=== PATIENT | female | born 1955 | race Caucasian/White ===

== ENCOUNTER 2016-10-22 09:50 | Emergency (ER) | payer BC, OTHER ==
[~2016-10-22] VITALS: Ht 172.7 cm; Wt 70.0 kg
[~2016-10-22 09:50] MED LIST: DFL100 PO; INSDGIPEN SC; INSU100I2 SQ; LEVO150T9 PO; MECL1TAB42 PO; ONDA4TAB10 SL; PRLSR20 PO; VTMD1000 PO
[2016-10-22 10:08] VITALS: Ht 172.7 cm; Wt 70.0 kg
[2016-10-22] MEDS ORDERED: ERGO500037 PO (10:18)
[2016-10-22] MEDS ORDERED: INSU100I SQ (10:23)
[2016-10-22] MEDS ORDERED: INSDGIPEN SC (10:23)
[2016-10-22] MEDS ORDERED: MECL-91 PO (10:27)
[2016-10-22] MEDS ORDERED: ACETAMINOPHEN 325 MG TAB PO STA (10:52)
[2016-10-22] MEDS ORDERED: ONDANSETRON INJ 2 MG/ML 2 ML VIAL IV STA (10:52)
[2016-10-22] MEDS ORDERED: SODIUM CHLORIDE 0.9% 1000ML 1,000 ML IV STA (10:52)
[2016-10-22] MEDS ORDERED: ALBUT/IPRATROP 3MG/0.5MG NEB 3 ML VIAL INH STA (10:52)
--- NOTE | 2016-10-22 11:06 | EMERGENCY ROOM VISIT NOTE ---
History Report prepared by Raisa: Tierney Le Under the Supervision of: Dr. Diann Hawley M.D. First contact with patient: 10:36 Chief Complaint: FLU LIKE SX Stated Complaint: FEVER, VOMITING, DIARRHEA, MUSCLE WEAKNESS History of Present Illness The patient is a 61 year old female who presents to the Emergency Room with complaints of worsening flu-like symptoms for the past several days. She complains of a fever, headache, chest congestion, cough, shortness of breath, vomiting, diarrhea, and body aches. She states that she has had some chest pain with coughing. She has been taking NyQuil with some relief of her symptoms. She received a flu shot this year. She states that her sister was recently tested positive for influenza. Denies rash or other complaints. Source of History: patient Onset: several days ago Position: other (global) Quality: other (flu-like symptoms) Timing: worsening Associated Symptoms: + SOB, + chest pain (with coughing), + cough, + diarrhea, + fevers, + headache, + vomiting, No rash Note: Other symptoms: chest congestion, body aches Review of Systems See HPI for pertinent positives & negatives. A total of 10 systems reviewed and were otherwise negative. Past Medical & Surgical Medical Problems: (1) Diabetes mellitus (2) DKA (diabetic ketoacidosis) (3) Hyperlipidemia Family History FHx: heart disease Social History Smoking Status: Never Smoker Alcohol Use: none Drug Use: none Marital Status: Housing Status: lives with significant other Occupation Status: employed Current/Historical Medications Scheduled Ergocalciferol (Vitamin D 14461 Unit), 50,000 UNIT PO WK Fluconazole (Fluconazole), 100 MG PO QAM Insulin Glargine (Lantus Solostar), 34 UNITS SC QAM Insulin Lispro (Human) (Humalog), 5-8 UNITS SQ TID Levothyroxine Sodium (Levothyroxine Sodium), 150 MCG PO DAILY Ondasetron Odt (Zofran Odt), 4 MG SL Q6H Oseltamivir (Tamiflu), 75 MG PO BID Scheduled PRN Albuterol Sulfate (Proventil Hfa), 2 PUFFS INH Q4 PRN for Cough Meclizine HCl (Meclizine 25), 1 TAB PO TID PRN for Dizziness or Vertigo Omeprazole (Prilosec), 20 MG PO BID PRN for GI Upset Allergies Coded Allergies: Penicillins (Verified Allergy, Mild, 10/22/16) Sulfa Antibiotics (Verified Allergy, Unknown, HIVES, 10/22/16) Physical Exam Vital Signs Date Time Temp Pulse Resp B/P Pulse Ox O2 Delivery O2 Flow Rate FiO2 10/22/16 13:44 83 18 119/64 95 10/22/16 13:09 89 10/22/16 12:06 37.8 89 20 126/70 10/22/16 11:16 91 10/22/16 10:08 37.3 101 20 123/73 96 Room Air Physical Exam Vital signs reviewed. General: Somewhat ill-appearing 61 year old female, in no significant distress. HEENT: No scleral icterus, PERRLA, posterior oropharynx is clear, neck supple. Atraumatic. Cardiovascular: Regular rate and rhythm, no extra sounds. Pulmonary: Mild scattered wheezes, normal work of breathing. Abdomen: Soft, nontender, nondistended, positive bowel sounds. Musculoskeletal: Atraumatic, no peripheral edema. Neurologic: Patient awake alert and oriented x 3, full strength in all 4 extremities. Cranial nerves 2 through 12 grossly intact. No meningeal signs. Skin: Warm, dry, no rash Medical Decision & Procedures ER Provider Diagnostic Interpretation: Radiology results as stated below per my review and radiologist interpretation: CHEST ONE VIEW PORTABLE CLINICAL HISTORY: COUGH, FEVER COMPARISON STUDY: No previous studies for comparison. FINDINGS: The cardiac and mediastinal contours are normal. There is no evidence of focal pulmonary consolidation. There is no evidence of failure. No pleural effusions are visualized.[ There is a calcified left upper lung zone granuloma. IMPRESSION: No active disease in the chest. Electronically signed by: Solitario Colon M.D. 10/22/2016 11:07 AM Dictated Date/Time: 10/22/2016 11:06 AM Laboratory Results 10/22/16 10:30 Red Blood Count 4.52, Mean Corpuscular Volume 83.2, Mean Corpuscular Hemoglobin 29.2, Mean Corpuscular Hemoglobin Concent 35.1, Mean Platelet Volume 10.4, Neutrophils (%) (Auto) 79.4, Lymphocytes (%) (Auto) 16.1, Monocytes (%) (Auto) 4.3, Eosinophils (%) (Auto) 0.0, Basophils (%) (Auto) 0.1, Neutrophils # (Auto) 6.05, Lymphocytes # (Auto) 1.23, Monocytes # (Auto) 0.33, Eosinophils # (Auto) 0.00, Basophils # (Auto) 0.01 10/22/16 10:30 Test 10/22/16 10:25 10/22/16 10:30 10/22/16 10:36 Bedside Glucose 347 mg/dl (70-90) White Blood Count 7.63 K/uL (4.8-10.8) Red Blood Count 4.52 M/uL (4.2-5.4) Hemoglobin 13.2 g/dL (12.0-16.0) Hematocrit 37.6 % (37-47) Mean Corpuscular Volume 83.2 fL (80-100) Mean Corpuscular Hemoglobin 29.2 pg (25-34) Mean Corpuscular Hemoglobin Concent 35.1 g/dl (32-36) Platelet Count 161 K/uL (130-400) Mean Platelet Volume 10.4 fL (7.4-10.4) Neutrophils (%) (Auto) 79.4 % Lymphocytes (%) (Auto) 16.1 % Monocytes (%) (Auto) 4.3 % Eosinophils (%) (Auto) 0.0 % Basophils (%) (Auto) 0.1 % Neutrophils # (Auto) 6.05 K/uL (1.4-6.5) Lymphocytes # (Auto) 1.23 K/uL (1.2-3.4) Monocytes # (Auto) 0.33 K/uL (0.11-0.59) Eosinophils # (Auto) 0.00 K/uL (0-0.5) Basophils # (Auto) 0.01 K/uL (0-0.2) RDW Standard Deviation 41.6 fL (36.4-46.3) RDW Coefficient of Variation 13.6 % (11.5-14.5) Immature Granulocyte % (Auto) 0.1 % Immature Granulocyte # (Auto) 0.01 K/uL (0.00-0.02) Anion Gap 10.0 mmol/L (3-11) Est Creatinine Clear Calc Drug Dose 75.4 ml/min Estimated GFR () 92.1 Estimated GFR (Non- 79.5 BUN/Creatinine Ratio 8.9 (10-20) Calcium Level 8.9 mg/dl (8.5-10.1) Magnesium Level 2.1 mg/dl (1.8-2.4) Total Bilirubin 0.4 mg/dl (0.2-1) Direct Bilirubin < 0.1 mg/dl (0-0.2) Aspartate Amino Transf (AST/SGOT) 18 U/L (15-37) Alanine Aminotransferase (ALT/SGPT) 28 U/L (12-78) Alkaline Phosphatase 126 U/L (45-117) Total Protein 7.3 gm/dl (6.4-8.2) Albumin 3.6 gm/dl (3.4-5.0) Lipase 103 U/L (73-393) Beta-Hydroxybutyric Acid 6.10 mg/dL (0.2-2.81) Influenza Type A (RT-PCR) POS for Influ A (NEG) Influenza Type A Antigen Neg for Influ A (NEG) Influenza Type B Antigen Neg for Influ B (NEG) Influenza Type B (RT-PCR) Neg for Influ B (NEG) Laboratory results per my review. Medications Administered Medications (Trade) Dose Ordered Sig/Mohamud Route Start Time Stop Time Status Last Admin Dose Admin Albuterol/ Ipratropium (Duoneb) 3 ml NOW STAT INH 10/22/16 10:52 10/22/16 10:55 DC 10/22/16 11:21 3 ML Acetaminophen 650 mg 650 mg NOW STAT PO 10/22/16 10:52 10/22/16 10:55 DC 10/22/16 11:19 650 MG Sodium Chloride (Nss 1000ml) 1,000 ml @ 999 mls/hr Q1H1M STAT IV 10/22/16 10:52 10/22/16 11:52 DC 10/22/16 11:19 999 MLS/HR Ondansetron HCl (Zofran Inj) 4 mg NOW STAT IV 10/22/16 10:52 10/22/16 10:55 DC 10/22/16 11:20 4 MG ECG Indication: chest pain Rate (beats per minute): 86 Rhythm: normal sinus Findings: no acute ischemic change, no ectopy Comparison ECG Date: 06/30/16 Change: T waves are flat laterally compared to previous. ED Course 1052: The patient was evaluated in room C9. A complete history and physical examination was performed. Ordered Zofran Inj 4 mg IV, NSS 1000 ml @ 999 mls/hr IV, Tylenol Tab 650 mg PO, DuoNeb 3 ml INH. 1330: Upon reevaluation, the patient appeared to have improvement of her symptoms. I discussed findings with the patient. She verbalized agreement of the treatment plan. The patient was discharged home. Medical Decision Fever: Influenza, other viral illness, pneumonia, urinary tract infection, metabolic abnormality, medication effect, cellulitis, meningitis, intra-abdominal source. His patient was evaluated and appeared to be in no significant distress. Physical examination reveals faint scattered wheezes. The patient is not febrile however she did take Tylenol earlier today. Laboratory work reveals a hyperglycemia with a blood sugar of 300 and positive influenza A swab. Chest x- ray is clear. The patient tolerated IV hydration Tylenol and Zofran. Her symptoms seemed to improve. She was advised to avoid her to is sick with cancer and is hospitalized until her fever has resolved. Patient was placed on Tamiflu 75 mg twice a day for 5 days. She was given an albuterol inhaler. She will follow-up with her physician this week for reevaluation and return to the ER for worsening of symptoms or any medical concerns. Impression Primary Impression: Influenza A Scribe Attestation The scribe's documentation has been prepared under my direction and personally reviewed by me in its entirety. I confirm that the note above accurately reflects all work, treatment, procedures, and medical decision making performed by me. Departure Information Dispostion Home / Self-Care Prescriptions Oseltamivir (Tamiflu) 75 Mg Cap 75 MG PO BID, #10 CAP Prov: Diann Hawley M.D. 10/22/16 Albuterol Sulfate (Proventil Hfa) 108 Mcg/Act Aer 2 PUFFS INH Q4 Y for Cough, #1 INHALER Prov: Diann Hawley M.D. 10/22/16 Referrals Hu Cruz M.D. (PCP) Patient Instructions My [facility], Oseltamivir Phosphate Oral capsule Additional Instructions Diagnosis: Influenza A Tamiflu 75 mg twice daily for 5 days. Tylenol 650 mg every 6 hours as needed for pain or fever. Ibuprofen 600 mg every 6 hours as needed for pain or fever. Drink plenty of clear fluids. Albuterol 2 puffs every 4 hours as needed for wheezing or cough. Return to the ER for worsening of symptoms or any medical concerns
[2016-10-22 11:10] LABS: HEMATOCRIT 37.6 % (37-47); MEAN CELL VOLUME 83.2 fL (80-100); MEAN CORPUSCULAR HEMOGLOBIN 29.2 pg (25-34); MEAN CORPUSCULAR HGB CONC 35.1 g/dl (32-36); MEAN PLATELET VOLUME 10.4 fL (7.4-10.4); PLATELET COUNT 161 K/uL (130-400); RED BLOOD COUNT 4.52 M/uL (4.2-5.4); WHITE BLOOD COUNT 7.63 K/uL (4.8-10.8)
[2016-10-22 11:20] LABS: ALT/SGPT 28 U/L (12-78); AST/SGOT 18 U/L (15-37); BLOOD UREA NITROGEN 7 mg/dl (7-18); BUN/CREATININE RATIO 8.9 (10-20); CALCIUM 8.9 mg/dl (8.5-10.1); CARBON DIOXIDE 24 mmol/L (21-32); CHLORIDE 101 mmol/L (98-107); CREATININE 0.81 mg/dl (0.60-1.20); GLUCOSE 304 mg/dl (70-99); MAGNESIUM 2.1 mg/dl (1.8-2.4); POTASSIUM 3.6 mmol/L (3.5-5.1); SODIUM 135 mmol/L (136-145)
[2016-10-22 11:24] LABS: ALKALINE PHOSPHATASE 126 U/L (45-117)
[2016-10-22 11:40] LABS: BASO % 0.1 %; BASO ABS # 0.01 K/uL (0-0.2); COMPLETE YES; IG% 0.1 %; LYMPH % 16.1 %; LYMPH ABS # 1.23 K/uL (1.2-3.4); MONO % 4.3 %; NEUT % 79.4 %
[2016-10-22 12:06] VITALS: TEMP 37.8
[2016-10-22 12:23] LABS: INFLUENZA B PCR Neg for Influ B (NEG)
[2016-10-22 13:12] LABS: INFLUENZA A PCR POS for Influ A (NEG)
[2016-10-22] MEDS ORDERED: ALBUAER INH (13:22)
[2016-10-22] MEDS ORDERED: OSEL75CA12 PO (13:23)
[2016-10-22 13:44] VITALS: BP 119/64; PULSE 83; O2SAT 95
== END 2016-10-22 13:45 | disposition home or self-care (01) ==
LOC: C.EDB 09:51 → C.EDC 13:45
DX: J11.1 Influenza due to unidentified influenza virus with other respiratory manifestations (principal); E11.9 Type 2 diabetes mellitus without complications; E78.5 Hyperlipidemia, unspecified

== ENCOUNTER → 2016-11-10 | Outpatient (CLI) | payer BC ==
[~2016-11-10] MED LIST changes: +ALBUAER INH; +ERGO500037 PO; +INSU100I SQ; -INSU100I2 SQ; +MECL-91 PO; -MECL1TAB42 PO; +OSEL75CA12 PO; -VTMD1000 PO
[2016-11-10 12:09] LABS: ESTIMATED AVERAGE GLUCOSE 301 mg/dl; HA1C FLAG Normal (Normal)
[2016-11-10 13:04] LABS: ALT/SGPT 27 U/L (12-78); AST/SGOT 17 U/L (15-37); BLOOD UREA NITROGEN 10 mg/dl (7-18); BUN/CREATININE RATIO 11.9 (10-20); CARBON DIOXIDE 28 mmol/L (21-32); CHLORIDE 100 mmol/L (98-107); CREATININE 0.88 mg/dl (0.60-1.20); GLUCOSE 290 mg/dl (70-99); SODIUM 136 mmol/L (136-145)
[2016-11-10 13:09] LABS: ALB/GLOB RATIO 1.1 (0.9-2); ALKALINE PHOSPHATASE 108 U/L (45-117); CHOLESTEROL 251 mg/dl (0-200); CHOLESTEROL/HDL RATIO 5.6; HDL CHOLESTEROL 45 mg/dl; LDL CHOLESTEROL CALCULATED 161 mg/dl; TRIGLYCERIDES 224 mg/dl (0-150); VERY LOW DENSITY LIPOPROT CALC 45 mg/dl
[2016-11-10 13:11] LABS: CALCIUM 9.2 mg/dl (8.5-10.1)
[2016-11-10 14:01] LABS: RATIO 14.7 mcg/mg (0-30.0)
== END | disposition home or self-care (01) ==
LOC: C.LAB1850 11:03
PROVIDERS: ATTEND Nurse Practitioner Family
DX: E55.9 Vitamin D deficiency, unspecified (principal); E10.9 Type 1 diabetes mellitus without complications; E03.9 Hypothyroidism, unspecified

== ENCOUNTER → 2017-01-02 | Outpatient (CLI) | payer OTHER ==
[~2017-01-02] MED LIST changes: -ONDA4TAB10 SL
--- NOTE | 2017-01-02 11:41 | DIAGNOSTIC IMAGING REPORT ---
PELVIS 1 OR 2 VIEW ROUTINE CLINICAL HISTORY: M54.4 pain COMPARISON: None. DISCUSSION: Moderate rather significant degenerative change of both hips. No evidence for acetabular protrusion. Mild degenerative change of the sacroiliac joints. Nonobstructive bowel pattern. There is no evidence for soft tissue swelling. IMPRESSION: Moderate to significant degenerative change of the hips bilaterally and to lesser extent sacroiliac joints. Electronically signed by: Devon Cedillo M.D. 01/02/2017 11:40 AM Dictated Date/Time: 01/02/2017 11:39 AM
--- NOTE | 2017-01-02 11:43 | DIAGNOSTIC IMAGING REPORT ---
LUMBAR SPINE 5 VIEWS HISTORY: Pain M54.4 COMPARISON: None. FINDINGS: Mild scoliosis. No subluxation. Moderate degenerative change primarily at L5-S1. No evidence for compression deformity. Posterior elements are intact. Mild sclerosis of the posterior facets. IMPRESSION: Mild scoliosis. Moderate degenerative intervertebral disc change most significant at L5-S1. Electronically signed by: Devon Cedillo M.D. 01/02/2017 11:41 AM Dictated Date/Time: 01/02/2017 11:40 AM
== END | disposition home or self-care (01) ==
LOC: C.RAD 11:10
PROVIDERS: ATTEND Nurse Practitioner
DX: M47.817 Spondylosis without myelopathy or radiculopathy, lumbosacral region (principal); M41.9 Scoliosis, unspecified

== ENCOUNTER → 2017-02-10 | Outpatient (CLI) | payer OTHER | END | disposition home or self-care (01) | LOC: C.MAMM 13:26 | PROVIDERS: ATTEND Nurse Practitioner | DX: M85.89 Other specified disorders of bone density and structure, multiple sites (principal) ==

== ENCOUNTER → 2017-02-10 | Outpatient (CLI) | payer OTHER ==
[2017-02-11 06:22] LABS: ESTIMATED AVERAGE GLUCOSE 335 mg/dl; HA1C FLAG Normal (Normal)
== END | disposition home or self-care (01) ==
LOC: C.LAB1850 14:00
PROVIDERS: ATTEND Nurse Practitioner Family
DX: E03.9 Hypothyroidism, unspecified (principal); E10.9 Type 1 diabetes mellitus without complications

== ENCOUNTER → 2017-02-27 | Outpatient (CLI) | payer OTHER ==
[2017-02-27 12:16] LABS: HEMATOCRIT 37.8 % (37-47); MEAN CELL VOLUME 85.1 fL (80-100); MEAN CORPUSCULAR HEMOGLOBIN 28.6 pg (25-34); MEAN CORPUSCULAR HGB CONC 33.6 g/dl (32-36); PLATELET COUNT 234 K/uL (130-400); RED BLOOD COUNT 4.44 M/uL (4.2-5.4)
== END | disposition home or self-care (01) ==
LOC: C.LAB1850 10:56
PROVIDERS: ATTEND Physician Assistant
DX: J45.991 Cough variant asthma (principal)

== ENCOUNTER → 2017-02-27 | Outpatient (CLI) | payer OTHER ==
--- NOTE | 2017-02-27 10:52 | DIAGNOSTIC IMAGING REPORT ---
CHEST 2 VIEWS ROUTINE HISTORY:60 [id number] - COUGH COMPARISON: Chest radiograph 10/22/2016. TECHNIQUE: Frontal and lateral views of the chest. FINDINGS: Cardiomediastinal and hilar silhouettes are within normal limits. No pneumothorax, pleural effusion or focal airspace consolidation. Calcific granuloma left midlung is unchanged. Cholecystectomy clips are noted. There is gentle convex right curvature of the midthoracic spine. IMPRESSION: Prior granulomatous disease without acute cardiopulmonary process. The above report was generated using voice recognition software. It may contain grammatical, syntax or spelling errors. Electronically signed by: Haris Capellan 02/27/2017 10:50 AM Dictated Date/Time: 02/27/2017 10:49 AM
== END | disposition home or self-care (01) ==
LOC: C.RAD 10:21
DX: J45.991 Cough variant asthma (principal)

== ENCOUNTER → 2017-05-21 | Outpatient (CLI) | payer OTHER ==
[~2017-05-21] MED LIST changes: -OSEL75CA12 PO
[2017-05-21 12:21] LABS: ESTIMATED AVERAGE GLUCOSE 286 mg/dl; HA1C FLAG Normal (Normal)
[2017-05-21 12:45] LABS: CHOLESTEROL 192 mg/dl (0-200); CHOLESTEROL/HDL RATIO 4.2; HDL CHOLESTEROL 46 mg/dl; LDL CHOLESTEROL CALCULATED 121 mg/dl; THYROID STIMULATING HORMONE < 0.005 uIu/ml (0.300-4.500); TRIGLYCERIDES 125 mg/dl (0-150); VERY LOW DENSITY LIPOPROT CALC 25 mg/dl
== END | disposition home or self-care (01) ==
LOC: C.LAB1850 10:37
PROVIDERS: ATTEND Nurse Practitioner Family
DX: E78.5 Hyperlipidemia, unspecified (principal); I10 Essential (primary) hypertension; E10.65 Type 1 diabetes mellitus with hyperglycemia

== ENCOUNTER → 2017-06-10 | Outpatient (CLI) | payer OTHER ==
[~2017-06-10] MED LIST changes: +OPTIRAY 320 IV PRN
[2017-06-10 10:56] LABS: BLOOD UREA NITROGEN 20 mg/dl (7-18)
--- NOTE | 2017-06-10 12:54 | DIAGNOSTIC IMAGING REPORT ---
CT OF THE ABDOMEN AND PELVIS WITH CONTRAST CLINICAL HISTORY: PELVIC AND PERINEAL PAIN. COMPARISON STUDY: CT of the abdomen and pelvis June 17, 2008 and pelvis radiograph January 02, 2017. TECHNIQUE: Following IV administration of 95 mL of Optiray-320, axial images of the abdomen and pelvis were obtained from the lung bases to the proximal femurs. Images were reviewed in the axial, sagittal, and coronal planes. IV contrast was administered without complication. A dose lowering technique was utilized adhering to the principles of ALARA. Oral contrast was administered. CT DOSE: 435.73 mGycm FINDINGS: Several subcentimeter hypodense hepatic lesions are too small to characterize but were present on exam of June 17, 2008 and are therefore benign. Mild dilatation of the common bile duct is unchanged since prior exam and likely related to cholecystectomy. There is no pancreatic ductal dilatation or peripancreatic infiltration. There are diverticula of the second portion of the duodenum. There are calcified granulomas within the spleen. There is no hydronephrosis. The adrenal glands and kidneys are normal. No abdominal or pelvic lymphadenopathy is present. The appendix is not visualized. There is sigmoid diverticulosis without evidence for acute diverticulitis. No suspicious osseous lesions present. There is moderate to severe arthritis of both hips. No fluid collection is identified to suggest an abscess. There are no enlarged lymph nodes. No perianal/perirectal abscess is identified. IMPRESSION: 1. No acute process within the abdomen or pelvis. 2. Sigmoid diverticulosis without evidence for acute diverticulitis. 3. 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 Electronically signed by: Wes Ramirez M.D. 06/10/2017 12:53 PM Dictated Date/Time: 06/10/2017 12:44 PM
== END | disposition home or self-care (01) ==
LOC: C.CTS 09:39
PROVIDERS: ATTEND Physician Assistant
DX: R10.2 Pelvic and perineal pain (principal); Z12.72 Encounter for screening for malignant neoplasm of vagina; Z51.81 Encounter for therapeutic drug level monitoring; Z79.899 Other long term (current) drug therapy; K57.30 Diverticulosis of large intestine without perforation or abscess without bleeding

== ENCOUNTER → 2017-07-28 | Outpatient (CLI) | payer OTHER ==
[~2017-07-28] MED LIST changes: -OPTIRAY 320 IV PRN
--- NOTE | 2017-07-29 07:36 | MAMMOGRAPHY REPORT ---
BILATERAL DIGITAL SCREENING MAMMOGRAM TOMOSYNTHESIS WITH CAD: 07/28/2017 CLINICAL HISTORY: Routine screening. Patient has no complaints. TECHNIQUE: Breast tomosynthesis in addition to standard 2D mammography was performed. Current study was also evaluated with a Computer Aided Detection (CAD) system. COMPARISON: Comparison is made to exams dated: 07/23/2012 ultrasound, 07/23/2012 mammogram, 2 ultrasound, 01/15/2012 mammogram, 01/13/2012 mammogram, and [facility] BREAST COMPOSITION: The tissue of both breasts is heterogeneously dense, which may obscure small mas ses. FINDINGS: There are benign rim calcifications in both breasts. No suspicious mass, architectural dis tortion or cluster of new, suspicious microcalcifications is seen. IMPRESSION: ACR BI-RADS CATEGORY 2: BENIGN There is no mammographic evidence of malignancy. A 1 year screening mammogram is recommended. The pa tient will receive written notification of the results. Approximately 10% of breast cancers are not detected with mammography. A negative mammographic report should not delay biopsy if a clinically suggestive mass is present. Gayatri Singleton M.D. ay/:07/28/2017 16:38:51 Surgical Resident: Lourdes WEBSTER(R)(M), [facility] letter sent: Normal 1/2 BI-RADS Code: ACR BI-RADS Category 2: Benign
== END | disposition home or self-care (01) ==
LOC: C.MAMM 11:23
PROVIDERS: ATTEND Physician Assistant
DX: Z12.31 Encounter for screening mammogram for malignant neoplasm of breast (principal)

== ENCOUNTER → 2017-12-09 | Outpatient (CLI) | payer OTHER ==
[2017-12-09 09:51] LABS: HEMOGLOBIN A1C 9.5 % (4.5-5.6)
[2017-12-09 09:53] LABS: CREATININE RANDOM URINE 46.7 mg/dl
== END | disposition home or self-care (01) ==
LOC: C.LAB 07:20
PROVIDERS: ATTEND Internal Medicine Endocrinology, Diabetes & Metabolism
DX: E03.9 Hypothyroidism, unspecified (principal); E10.9 Type 1 diabetes mellitus without complications; E55.9 Vitamin D deficiency, unspecified

== ENCOUNTER → 2017-12-09 | Day surgery (SDC) | payer OTHER ==
[~2017-12-09] VITALS: Ht 162.6 cm; Wt 68.0 kg
[~2017-12-09] MED LIST changes: +COSYNTROPIN INJ 1 MCG in SYRINGE 0 ML IV SCH
[2017-12-09 08:07] VITALS: BP 138/77; PULSE 77; TEMP 36.8; O2SAT 99; Ht 162.6 cm; Wt 68.0 kg
[2017-12-09 09:02] VITALS: BP 125/76; PULSE 73; TEMP 36.9; O2SAT 98
[2017-12-09 09:30] VITALS: BP 136/70; PULSE 71; TEMP 37.1; O2SAT 98
--- NOTE | 2017-12-16 10:24 | CODING QUERY NO DIAGNOSIS ---
CODING QUERY Dr. Whitlock DOS: 12-09-17 To promote full compliance with coding requirements relating to patient care, provider participation is requested in all cases of audiology technician uncertainty. Please assist us with the question(s) below: Coding Question(s): The patient was seen in [facility] on 12-09-17 and had a low dose cortrosyn test. Please provide a diagnosis. Thank you. Physician's Response(s): Thank you Kristen Berman - Computer Video Game Designer Principal Diagnosis: "_that condition established after study, to be chiefly responsible for occasioning the admission of the patient to the hospital for care." Co-Existing Principal Diagnosis: "_when two or more diagnoses equally meet the criteria for principal diagnosis as determined by the circumstances of admission, diagnostic work up, and/or therapy provided, and the Alphabetic Index, Tabular List, or another coding guideline does not provide sequencing direction, any one of the diagnoses may be sequenced first." "When the physician has documented what appears to be a current diagnosis in the body of the record, but has not included the diagnosis in the final diagnostic statement, the physician should be asked whether the diagnosis should be added." (Source Coding Clinic 2 QTR90. p3-4)
== END | disposition home or self-care (01) ==
LOC: C.MTU 07:44
PROVIDERS: ATTEND Internal Medicine Endocrinology, Diabetes & Metabolism
DX: E06.3 Autoimmune thyroiditis (principal); E03.9 Hypothyroidism, unspecified

== ENCOUNTER → 2018-03-12 | Outpatient (CLI) | payer OTHER ==
[~2018-03-12] MED LIST changes: -ALBUAER INH; -COSYNTROPIN INJ 1 MCG in SYRINGE 0 ML IV SCH
--- NOTE | 2018-03-12 12:51 | DIAGNOSTIC IMAGING REPORT ---
THYROID ULTRASOUND CLINICAL HISTORY: Thyroid nodule. Hypothyroidism. COMPARISON STUDY: None. TECHNIQUE: Sonography of the thyroid gland was performed. FINDINGS: The right thyroid lobe measures 3 x 1.3 x 0.9 cm and the left lobe measures 3.3 x 0.8 x 0.8 cm. The gland is small and markedly heterogeneous. No thyroid nodules are identified. IMPRESSION: 1. Heterogeneous, small thyroid gland. 2. No thyroid nodules identified. Electronically signed by: Wes Ramirez M.D. 03/12/2018 12:49 PM Dictated Date/Time: 03/12/2018 12:48 PM
== END | disposition home or self-care (01) ==
LOC: C.ULTR 12:16
PROVIDERS: ATTEND Physician Assistant
DX: E03.9 Hypothyroidism, unspecified (principal)

== ENCOUNTER → 2018-04-02 | Outpatient (CLI) | payer OTHER ==
[2018-04-02 12:38] LABS: BLOOD UREA NITROGEN 14 mg/dl (7-18); CALCIUM 8.8 mg/dl (8.5-10.1); CARBON DIOXIDE 28 mmol/L (21-32); CREATININE 0.84 mg/dl (0.60-1.20); GLUCOSE 98 mg/dl (70-99); POTASSIUM 3.8 mmol/L (3.5-5.1); SODIUM 138 mmol/L (136-145)
[2018-04-02 12:51] LABS: HEMOGLOBIN A1C 9.2 % (4.5-5.6)
[2018-04-02 12:55] LABS: CREATININE RANDOM URINE 70.9 mg/dl
== END | disposition home or self-care (01) ==
LOC: C.LAB1850 09:54
PROVIDERS: ATTEND Nurse Practitioner Family
DX: E10.65 Type 1 diabetes mellitus with hyperglycemia (principal)

== ENCOUNTER 2019-06-27 17:17 | Inpatient (IN) ==
[2019-06-27] MEDS ORDERED: MoRPHine SULFATE 4 MG/ML 1 ML CARP\\VIAL IV STA (17:41)
[2019-06-27] MEDS ORDERED: ONDANSETRON INJ 2 MG/ML 2 ML VIAL IV STA ×2 (17:41→21:17)
[2019-06-27 18:02] LABS: Basophils # (auto) 0.01 K/uL (0-0.2); Basophils % (auto) 0.1 %; Hemoglobin 11.6 g/dL (12.0-16.0); Immature Granulocytes # (auto) 0.01 K/uL (0.00-0.02); Immature Granulocytes % (auto) 0.1 %; Lymphocytes # (auto) 0.62 K/uL (1.2-3.4); Lymphocytes % (auto) 7.5 %; Mean Corpuscular Hemoglobin 29.7 pg (25-34); Mean Corpuscular Hgb Conc 34.1 g/dL (32-36); Mean Platelet Volume 10.9 fL (7.4-10.4); Monocytes # (auto) 0.16 K/uL (0.11-0.59); Monocytes % (auto) 1.9 %; Neutrophils # (auto) 7.48 K/uL (1.4-6.5); Neutrophils % (auto) 90.4 %; Platelet Count 143 K/uL (130-400); RDW Coefficient of Variation 13.1 % (11.5-14.5); Red Blood Count 3.91 M/uL (4.2-5.4); White Blood Count 8.28 K/uL (4.8-10.8)
[2019-06-27 18:13] LABS: Alanine Aminotransferase 112 U/L (12-78); Albumin Level 3.8 gm/dl (3.4-5.0); Aspartate Aminotransferase 227 U/L (15-37); BUN Creatinine Ratio 30.8 (10-20); Blood Urea Nitrogen 21 mg/dl (7-18); Calcium 9.2 mg/dl (8.5-10.1); Carbon Dioxide 25 mmol/L (21-32); Chloride 107 mmol/L (98-107); Creatinine Clr Calc Pharmacy 81.2 ml/min; Est GFR (African American) 108.1; Est GFR (Non-African American) 93.3; Glucose 104 mg/dl (70-99); Lipase 69 U/L (73-393); Potassium 3.1 mmol/L (3.5-5.1); Sodium 140 mmol/L (136-145)
[2019-06-27 18:18] LABS: Albumin Globulin Ratio 1.4 (0.9-2); Alkaline Phosphatase 93 U/L (45-117); Bilirubin,Total 0.5 mg/dl (0.2-1); Globulin 2.8 gm/dl (2.5-4.0); Total Protein 6.6 gm/dl (6.4-8.2); Troponin I < 0.015 ng/ml (0-0.045)
[2019-06-27] MEDS ORDERED: IOVERSOL 100ml IV PRN (19:24)
--- NOTE | 2019-06-27 19:40 | CT Scan Report ---
CT abd pelvis IV con only CT DOSE: 304.24 mGy.cm HISTORY: upper abd pain/transaminitis eval for mass TECHNIQUE: Multiaxial CT images of the abdomen and pelvis were performed following the use of intrave nous contrast. A dose lowering technique was utilized adhering to the principles of ALARA. COMPARISON STUDY: 06/10/2017 FINDINGS: Lung bases are clear. Prior cholecystectomy. Liver spleen and pancreas are otherwise unrema rkable. Mild increase in biliary ductal prominence compared to the prior study. Mild prominence of several lo ops of small bowel suggesting nonspecific enteritis. Bowel pattern overall is nonobstructive. Bladder is midline. Moderate degenerative changes of the bony structures are noted. IMPRESSION: 1. Moderate nonspecific small bowel enteritis. 2. Slight increase in biliary ductal prominence compared to the prior study. The above report was generated using voice recognition software. It pain may contain grammatical, sy ntax or spelling errors. Electronically signed by: Devon Cedillo M.D. 06/27/2019 7:39 PM
[2019-06-27 19:56] LABS: Appearance Urine Cloudy (Clear); Bacteria Urine Automated Negative (Negative); Bilirubin Urine Negative (Negative); Blood Urine Negative (Negative); Color Urine Dark Yellow; Epithelial Cell Urine Auto >30 /lpf (0-5); Glucose Urine UA 2+ (Negative); Ketones Urine Negative (Negative); Leukocyte Esterase Urine Negative (Negative); Nitrite Urine Negative (Negative); RBC Urine Automated 0-4 /hpf (0-4); Specific Gravity Urine 1.037 (1.000-1.030); Urobilinogen Urine Positive (Negative); pH Urine 8.5 (4.5-7.5)
[2019-06-27 20:09] LABS: Protein Urine Negative (Negative); Sulfosalicylic Acid Urine Negative (Negative)
--- NOTE | 2019-06-27 21:00 | Ultrasound Report ---
US liver CLINICAL HISTORY: epigastric pain eval for biliary obstruction COMPARISON STUDY: 02/09/2019 FINDINGS: Pancreas is unremarkable. Liver is uniform and 15 cm maximum dimension. Normal vascular courtney w is present. Gallbladder surgically absent. Common bile duct measures to 1.5 cm. Right kidney is negative for hydronephrosis. IMPRESSION: Moderately distended common bile duct 1.5 cm. This is increased from the 9 mm dimension described previously. Study is otherwise negative post cholecystectomy. The above report was generated using voice recognition software. It may contain grammatical, syntax or spelling errors. Electronically signed by: Devon Cedillo M.D. 06/27/2019 8:59 PM
[2019-06-27] MEDS ORDERED: fentaNYL citrate 100 MCG/2 ML VIAL IV STA (21:17)
[2019-06-27] MEDS ORDERED: MoRPHine SULFATE 2 MG/ML CARP IV PRN (22:06)
[2019-06-27] MEDS ORDERED: ALBUTEROL 0.083% NEBU SOLN 3 ML VIAL NEB PRN (22:06)
[2019-06-27] MEDS ORDERED: KETOROLAC TROMETHAMINE 15 MG/ML VIAL IV PRN (22:06)
[2019-06-27] MEDS ORDERED: GLUCAGON FOR INJ 1 MG VIAL SQ PRN (22:44)
[2019-06-27] MEDS ORDERED: DEXTROSE 50% 50 ML SYRINGE IV PRN (22:44)
[2019-06-27] MEDS ORDERED: LORazepam 0.5 MG TAB PO PRN (22:44)
[2019-06-27] MEDS ORDERED: INSULIN ASPART PER UNIT SQ SCH (22:44)
[2019-06-27] MEDS ORDERED: GLUCOSE 40% GEL 15 GM TUBE PO PRN (22:44)
[2019-06-27] MEDS ORDERED: CARBOHYDRATES FOR HYPOGLYCEMIA PO PRN (22:44)
[2019-06-27] MEDS ORDERED: GLUCOSE 10 TABS/TUBE PO PRN (22:44)
--- NOTE | 2019-06-27 22:53 | History & Physical Report ---
Date of Service June 27, 2019 Assessment & Plan (1) Abdominal pain: NPO except meds Pain control (2) Abnormal LFTs: Patient has history of bile duct obstruction following cholecystectomy. May need ERCP I deferred MRCP as she has an insulin pump Consult GI - she had seen Elif WILLIAM roughly 16 years prior. DVT prophylaxis = SCDs, holding pharmacologic due to possibility of procedure. Follow labs. (3) Bilious emesis: Prn Zofran. (4) Acute hypokalemia: IVF with potassium re check in the am. (5) Diabetes mellitus: Patient has insulin pump. (6) Hyperlipidemia: Continue rosuvastatin. History of Present Illness 64 y/o female presented to the ED with acute onset of epigastric to mid quadrant pain 10/10 with associated nausea. Patient had a bilious emesis in the ED. She reports having had a remote bile duct procedure due to obstruction following a cholecystectomy. She tells me that this feels similar. No F/C, cough, chest pain, SOB, or diarrhea. Primary Care Provider: Yaz Pantoja Allergies Allergy/AdvReac Type Severity Reaction Status Date / Time Penicillins Allergy Mild Verified 10/26/18 11:37 Sulfa (Sulfonamide Allergy Unknown HIVES Verified 10/26/18 11:37 Antibiotics) TOUJEO AdvReac Severe N/V, Uncoded 10/26/18 11:37 VERTIGO, INABILTY TO AMBULATE, DIFFICULTY SWALLOWING Home Medications Home Medications Medication Instructions Recorded Confirmed Type ergocalciferol (vitamin D2) 50,000 unit PO WK 10/26/18 06/27/19 History [Vitamin D2] levothyroxine 175 mcg PO DAILY 02/09/19 06/27/19 History ondansetron 4 mg PO Q6H PRN #12 tab 02/09/19 06/27/19 Rx propranolol 80 mg PO DAILY 02/09/19 06/27/19 History ropinirole 0.5 mg PO HS 02/09/19 06/27/19 History rosuvastatin 40 mg PO DAILY 02/09/19 06/27/19 History aspirin 81 mg PO DAILY #30 tab 03/15/19 06/27/19 Rx albuterol sulfate [Ventolin HFA] 2 puff INHALATION QID PRN 06/27/19 06/27/19 History ibuprofen 800 mg PO TID PRN 06/27/19 06/27/19 History insulin aspart U-100 [Novolog 0 unit SQ .CONTINUOUS 06/27/19 06/27/19 History U-100 Insulin aspart] insulin glargine [Lantus U-100 0 unit SUBCUT DAILY PRN 06/27/19 06/27/19 History Insulin] lisinopril 5 mg PO DAILY 06/27/19 06/27/19 History loratadine 10 mg PO DAILY PRN 06/27/19 06/27/19 History lorazepam 0.5 mg PO Q6H PRN 06/27/19 06/27/19 History montelukast 10 mg PO DAILY 06/27/19 06/27/19 History ranitidine HCl 150 mg PO HS 06/27/19 06/27/19 History sucralfate [Carafate] 10 ml PO QID 06/27/19 06/27/19 History Past Med/Surg History Medical History Hyperlipidemia (Chronic) Diabetes mellitus (Chronic) Chest pain (Acute) DKA (diabetic ketoacidosis) Dizziness (Acute) Hyperglycemia due to type 2 diabetes mellitus (Acute) Biliary obstruction Surgical History History of cholecystectomy Family History Other No significant family history Social History Preferred Language: Sami Communication Ability: Effective Visual Impairment: No Limitations Hearing Ability: Normal Social Studies Teacher Required: No Beliefs That Will Affect Care: None Current Living Situation: Family Other Information That Helps Us Care for You: No Feels Safe at Home: Yes Safety Concerns: Feels Safe At This Time Smoking Status: Current every day smoker Tobacco Type: cigarettes ; Cigarettes Per Day: 6 ; Do You Dip or Chew Tobacco: No ; Tobacco Cessation Education Requested by Patient: No Hx Alcohol Use: No Hx Substance Use: No Review of Systems Review of Systems: Constitutional- no fever; no weight loss Eyes- no acute visual changes ENT- no sinus drainage; no pharyngitis Pulmonary- no cough, no wheezing, no shortness of breath Cardiac- no chest pain, no palpitations, no orthopnea, no dependent edema GI- As in HPI. - no dysuria, no hematuria Musculoskeletal- no arthralgias, no myalgias Derm- no rashes, no new skin lesions. Hematologic- no unusual bruising, no unusual bleeding Lymphatics- no adenopathy Endocrine- no polyuria or polydipsia; no heat or cold intolerance Neuro- no headaches, no focal neurologic symptoms Psych- no anxiety, no depression Physical Exam Physical Exam: General- adult female, in mild distress due to pain. Head- atraumatic Eyes- PERRL, EOMI, anicteric ENT- oropharynx clear Neck- supple, no JVD, no adenopathy, no thyromegaly. Lungs- CTA b/l no r/r/w Heart- regular rhythm; no murmur, no gallop, no rub appreciated Abdomen- + epigastric tenderness and to the right upper quadrant, + BS, No guarding or rebound. Extremities- no pretibial edema, no calf tenderness; peripheral pulses intact Neuro- alert, oriented x 3; PERRL, EOMI; oxygen therapist II-XII grossly intact, non-focal. Skin- warm & dry Results & Data Vital Signs (Past 12 Hours) Vital Signs Temp Pulse Pulse Resp BP BP Pulse Ox 06/27/19 22:24 77 18 108/59 L 96 06/27/19 21:43 73 18 113/61 94 06/27/19 21:29 80 18 119/60 97 06/27/19 20:59 73 20 102/54 L 96 06/27/19 20:13 73 18 108/58 L 98 06/27/19 19:45 74 18 124/64 99 06/27/19 19:00 70 12 105/55 L 95 06/27/19 18:57 73 72 13 103/65 103/65 95 06/27/19 18:30 72 12 104/58 L 95 06/27/19 18:00 77 13 107/62 94 06/27/19 17:46 75 21 119/65 95 06/27/19 17:30 75 24 126/62 96 06/27/19 17:29 36.8 C 88 13 128/73 94 06/27/19 17:24 91 H 19 94 06/27/19 17:20 128/73 Laboratory Results Laboratory Results WBC 8.28 K/uL (4.8-10.8) 06/27/19 17:40 RBC 3.91 M/uL (4.2-5.4) L 06/27/19 17:40 Hgb 11.6 g/dL (12.0-16.0) L 06/27/19 17:40 Hct 34.0 % (37-47) L 06/27/19 17:40 MCV 87.0 fL (80-100) 06/27/19 17:40 MCH 29.7 pg (25-34) 06/27/19 17:40 MCHC 34.1 g/dL (32-36) 06/27/19 17:40 RDW Std Deviation 42.0 fL (36.4-46.3) 06/27/19 17:40 RDW Coeff of Kandy 13.1 % (11.5-14.5) 06/27/19 17:40 Plt Count 143 K/uL (130-400) 06/27/19 17:40 MPV 10.9 fL (7.4-10.4) H 06/27/19 17:40 Immature Gran % (Auto) 0.1 % 06/27/19 17:40 Neut % (Auto) 90.4 % 06/27/19 17:40 Lymph % (Auto) 7.5 % 06/27/19 17:40 Dunn % (Auto) 1.9 % 06/27/19 17:40 Eos % (Auto) 0.0 % 06/27/19 17:40 Baso % (Auto) 0.1 % 06/27/19 17:40 Immature Gran # (Auto) 0.01 K/uL (0.00-0.02) 06/27/19 17:40 Neut # (Auto) 7.48 K/uL (1.4-6.5) H 06/27/19 17:40 Lymph # (Auto) 0.62 K/uL (1.2-3.4) L 06/27/19 17:40 Dunn # (Auto) 0.16 K/uL (0.11-0.59) 06/27/19 17:40 Eos # (Auto) 0.00 K/uL (0-0.5) 06/27/19 17:40 Baso # (Auto) 0.01 K/uL (0-0.2) 06/27/19 17:40 Sodium 140 mmol/L (136-145) 06/27/19 17:40 Potassium 3.1 mmol/L (3.5-5.1) L 06/27/19 17:40 Chloride 107 mmol/L (98-107) 06/27/19 17:40 Carbon Dioxide 25 mmol/L (21-32) 06/27/19 17:40 Anion Gap 8.0 (3-11) 06/27/19 17:40 BUN 21 mg/dl (7-18) H 06/27/19 17:40 Creatinine 0.69 mg/dl (0.6-1.2) 06/27/19 17:40 Est Cr Clr Drug Dosing 81.2 ml/min 06/27/19 17:40 Est GFR ( Amer) 108.1 06/27/19 17:40 Est GFR (Non-Af Amer) 93.3 06/27/19 17:40 BUN/Creatinine Ratio 30.8 (10-20) H 06/27/19 17:40 Glucose 104 mg/dl (70-99) H 06/27/19 17:40 Calcium 9.2 mg/dl (8.5-10.1) 06/27/19 17:40 Total Bilirubin 0.5 mg/dl (0.2-1) 06/27/19 17:40 AST 227 U/L (15-37) H 06/27/19 17:40 ALT 112 U/L (12-78) H 06/27/19 17:40 Alkaline Phosphatase 93 U/L (45-117) 06/27/19 17:40 Troponin I < 0.015 ng/ml (0-0.045) 06/27/19 17:40 Total Protein 6.6 gm/dl (6.4-8.2) 06/27/19 17:40 Albumin 3.8 gm/dl (3.4-5.0) 06/27/19 17:40 Globulin 2.8 gm/dl (2.5-4.0) 06/27/19 17:40 Albumin/Globulin Ratio 1.4 (0.9-2) 06/27/19 17:40 Lipase 69 U/L (73-393) L 06/27/19 17:40 Urine Color Dark Yellow 06/27/19 19:45 Urine Appearance Cloudy (Clear) A 06/27/19 19:45 Urine pH 8.5 (4.5-7.5) H 06/27/19 19:45 Ur Specific [place] 1.037 (1.000-1.030) H 06/27/19 19:45 Urine Protein Negative (Negative) 06/27/19 19:45 Urine Glucose (UA) 2+ (Negative) H 06/27/19 19:45 Urine Ketones Negative (Negative) 06/27/19 19:45 Urine Blood Negative (Negative) 06/27/19 19:45 Urine Nitrite Negative (Negative) 06/27/19 19:45 Urine Bilirubin Negative (Negative) 06/27/19 19:45 Urine Urobilinogen Positive (Negative) H 06/27/19 19:45 Ur Leukocyte Esterase Negative (Negative) 06/27/19 19:45 Urine WBC (Auto) 1-5 /hpf (0-5) 06/27/19 19:45 Urine RBC (Auto) 0-4 /hpf (0-4) 06/27/19 19:45 U Hyaline Cast (Auto) 5-10 /lpf (0-5) H 06/27/19 19:45 U Epithel Cells (Auto) >30 /lpf (0-5) H 06/27/19 19:45 Urine Bacteria (Auto) Negative (Negative) 06/27/19 19:45 Ur Renal Epithelial Cell Not Reportable 06/27/19 19:45 Diagnostic Findings [place], [place] [phone] CT Scan Report Patient: THUAN ANGEL Date: 06/27/19 MR#: [id number]: [address] [place] [address] Acct ID:[id number]: Date: 1955[facility] Zip: [place] [address] Age: 64Location: ED Sex: F Room/Bed: Att Phy:Diagnosis: AB PAIN Lori Phy: Yaz Pantoja, CRNPService Date: 06/27/19 Fam Phy: Yaz Pantoja, CRNPInterpreting Phy: Devon Cedillo MD Admit Phy: Ordering Phy: Fabio Peñaloza MD cc: ~ CT abd pelvis IV con only CT DOSE: 304.24 mGy.cm HISTORY: upper abd pain/transaminitis eval for mass TECHNIQUE: Multiaxial CT images of the abdomen and pelvis were performed following the use of intravenous contrast. A dose lowering technique was utilized adhering to the principles of ALARA. COMPARISON STUDY: 06/10/2017 FINDINGS: Lung bases are clear. Prior cholecystectomy. Liver spleen and pancreas are otherwise unremarkable. Mild increase in biliary ductal prominence compared to the prior study. Mild prominence of several loops of small bowel suggesting nonspecific enteritis. Bowel pattern overall is nonobstructive. Bladder is midline. Moderate degenerative changes of the bony structures are noted. IMPRESSION: 1. Moderate nonspecific small bowel enteritis. 2. Slight increase in biliary ductal prominence compared to the prior study. The above report was generated using voice recognition software. It pain may contain grammatical, syntax or spelling errors. Electronically signed by: Devon Cedillo M.D. 06/27/2019 7:39 PM Dictated: 06/27/191934 Transcribed: 06/27/191934 Code Status & VTE Plan VTE Prophylaxis Plan VTE Prophylaxis will be ordered: Yes PG Care Time/CCT Total # of Minutes Spent Total Time Spent: 55 Total Time Spent with Patient: Total time spent is greater than 50% in c oordination of care (as documented) at patient's floor/unit and/or counseling patient: (1) Abdominal pain Abdominal location: epigastric Qualified Code(s): R10.13 - Epigastric pain (2) Bilious emesis Nausea presence: with nausea Qualified Code(s): R11.14 - Bilious vomiting
[2019-06-27] MEDS: SODIUM CHLOR 0.45% + 20MEQ KCL 20 MEQ/1,000 ML BAG IV SCH (23:42)
[2019-06-28] MEDS ORDERED: INSULIN ASPART 100 UNITS/ML VIAL SC PRN (01:00)
[2019-06-28] MEDS: ONDANSETRON INJ 2 MG/ML 2 ML VIAL IV PRN ×3 (01:49→18:43)
[2019-06-28] MEDS: MoRPHine SULFATE 4 MG/ML 1 ML CARP\\VIAL IV PRN ×3 (05:36→23:28)
[2019-06-28] MEDS: LEVOTHYROXINE SODIUM 175 MCG TABLET PO SCH (05:36)
[2019-06-28 06:19] LABS: Hematocrit (blood only) 32.9 % (37-47); Hemoglobin 11.1 g/dL (12.0-16.0); Mean Corpuscular Hemoglobin 29.6 pg (25-34); Mean Corpuscular Hgb Conc 33.7 g/dL (32-36); Mean Corpuscular Volume 87.7 fL (80-100); Mean Platelet Volume 10.5 fL (7.4-10.4); Platelet Count 126 K/uL (130-400); RDW Coefficient of Variation 13.1 % (11.5-14.5); RDW Standard Deviation 42.2 fL (36.4-46.3); Red Blood Count 3.75 M/uL (4.2-5.4); White Blood Count 9.84 K/uL (4.8-10.8)
[2019-06-28 07:04] LABS: Albumin Globulin Ratio 1.1 (0.9-2); Albumin Level 3.2 gm/dl (3.4-5.0); BUN Creatinine Ratio 30.3 (10-20); Bilirubin Direct 0.2 mg/dl (0-0.2); Bilirubin,Total 0.7 mg/dl (0.2-1); Calcium 8.8 mg/dl (8.5-10.1); Creatinine Clr Calc Pharmacy 96.6 ml/min; Est GFR (African American) 114.5; Est GFR (Non-African American) 98.8; Potassium 3.7 mmol/L (3.5-5.1); Total Protein 6.2 gm/dl (6.4-8.2)
[2019-06-28] MEDS: SODIUM CHLOR 0.45% + 20MEQ KCL 20 MEQ/1,000 ML BAG IV SCH ×2 (07:11→18:00)
[2019-06-28] MEDS ORDERED: INFLUENZA ADMINISTRATION CHARGE ONE (08:00)
[2019-06-28] MEDS ORDERED: PNEUMOCOCCAL POLYSACCHARIDES 25 MCG/0.5 ML VIAL/SYR IM ONE (08:00)
[2019-06-28] MEDS ORDERED: PNEUMOCOCCAL ADMINISTRATION CHARGE ONE (08:00)
[2019-06-28] MEDS ORDERED: INFLUENZA VIRUS QUAD VACCINE 0.5 ML SYR IM ONE (08:00)
[2019-06-28] MEDS: NovoLOG INSULIN PUMP SCH ×4 (09:08→21:08)
--- NOTE | 2019-06-28 09:26 | Gastrointestinal Consultation ---
Date of Consultation June 28, 2019 Assessment & Plan (1) Abnormal LFTs: Ms. Patel is a 64 yr old female with elevated LFTs, pain, chills. Imaging is suggested of significant bile duct dilation to 15mm. This is suggestive of choledocolithisis or other obstruction of the bile duct. Her subjective report of chills yesterday is worrisome for choledocholithiasis but normal WBC and no fevers argue against infection. 1. Will plan for ERCP this afternoon. 2. IV fluids 3. NPO 4. Cipro IV to cover cholangitis if present. (PCN allergic) 5. Further recommendations to follow ERCP Present on Admission?: Yes (2) Dilated bile duct: See above (3) Abdominal pain: See above Supervising Physician Co-Signing Physician Notes I performed a history and physical examination of the patient, including specifically on physical exam - soft, nontender abdomen. I have discussed the patient's management with Lb. Please refer to the nurse practitioner's note for the documented findings and plan of care. 64 yrs old female patient with Hx of Gallstones s/p CHolecystectomy and ? ERCP for CBD stone, presented with abdominal pain, abn lfts and dilated CBD with chills, high probability for recurrent choledocholithiasis. Plan for ERCP today. History of Present Illness Reason for Consultation: Epigastric pain, elevated LFTs Requesting Physician: Dr. Wong Attending Physician: Shree Montes, History of Present Illness Ms. Jes Patel is a 64 yr old female pt of Yaz Pantoja with DM1 (on an insulin pump), GERD, restless leg syndrome. Ms. Patel has a hx of distant cholecystectomy and ERCP. She presented to the ED yesterday for epigastric pain. Dr. Mckeon's service was consulted. They have asked us to provide care for this patient who may need ERCP. 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 Despite not feeling well, she ate a grilled cheese sandwich. Severe epigastric pain began after eating. She also had chills, "couldn't get warm," and had several episodes of vomiting. She reports having had very dark urine yesterday but no acholic stools. She also mentioned that she had about 6 episodes of liquid diarrhea on 06/26 but was otherwise feeling well that day. She has a hx of IBS and attributed the diarrhea to IBS. On arrival, LFTs were elevated: AST 416, ALT 389, Bili and Alk phos remain normal. Transaminases are increased compared to yesterday. Previously, in January, she had very minimal elevation (AST 44) and other LFTs were normal. US show a 15mm bile duct post cholecystectomy. She has been afebrile. WBC is mildly elevated at 11.1. She continues with nausea and pain with some improvement with Dilaudid IV. She is kept NPO. Allergies Allergy/AdvReac Type Severity Reaction Status Date / Time Penicillins Allergy Mild Unknown Verified 06/28/19 10:56 Sulfa (Sulfonamide Allergy Unknown HIVES Verified 10/26/18 11:37 Antibiotics) insulin glargine AdvReac Severe Vomiting Verified 06/28/19 10:57 [facility] Home Medications Home Medications Medication Instructions Recorded Confirmed Type ergocalciferol (vitamin D2) 50,000 unit PO WK 10/26/18 06/27/19 History [Vitamin D2] levothyroxine 175 mcg PO DAILY 02/09/19 06/27/19 History ondansetron 4 mg PO Q6H PRN #12 tab 02/09/19 06/27/19 Rx propranolol 80 mg PO DAILY 02/09/19 06/27/19 History ropinirole 0.5 mg PO HS 02/09/19 06/27/19 History rosuvastatin 40 mg PO DAILY 02/09/19 06/27/19 History aspirin 81 mg PO DAILY #30 tab 03/15/19 06/27/19 Rx albuterol sulfate [Ventolin HFA] 2 puff INHALATION QID PRN 06/27/19 06/27/19 History ibuprofen 800 mg PO TID PRN 06/27/19 06/27/19 History insulin aspart U-100 [Novolog 0 unit SQ .CONTINUOUS 06/27/19 06/27/19 History U-100 Insulin aspart] insulin glargine [Lantus U-100 0 unit SUBCUT DAILY PRN 06/27/19 06/27/19 History Insulin] lisinopril 5 mg PO DAILY 06/27/19 06/27/19 History loratadine 10 mg PO DAILY PRN 06/27/19 06/27/19 History lorazepam 0.5 mg PO Q6H PRN 06/27/19 06/27/19 History montelukast 10 mg PO DAILY 06/27/19 06/27/19 History ranitidine HCl 150 mg PO HS 06/27/19 06/27/19 History sucralfate [Carafate] 10 ml PO QID 06/27/19 06/27/19 History Patient History Medical History Hyperlipidemia (Chronic) Diabetes mellitus (Chronic) Chest pain (Resolved) DKA (diabetic ketoacidosis) Dizziness (Acute) Hyperglycemia due to type 2 diabetes mellitus (Acute) Biliary obstruction Surgical History History of cholecystectomy Family History Other No significant family history Social History Preferred Language: Greek Communication Ability: Effective Visual Impairment: No Limitations Hearing Ability: Normal Registered Nurse Cardiovascular Icu Required: No Beliefs That Will Affect Care: None Current Living Situation: Family Feels Safe at Home: Yes Smoking Status: Current every day smoker Tobacco Type: cigarettes ; Cigarettes Per Day: 6 ; Hx Alcohol Use: No Hx Substance Use: No Review of Systems Review of Systems: ROS: Gen: Denies weakness, + chills but no measured fever, no weight loss Eyes: No eye redness, or pain, no recent vision changes Resp: No SOB, no cough Cardio: No palpitations/irregular beats, no chest pain GI: No abdominal pain, no nausea/vomiting : Denies pain on urination Skin: No jaundice, itching or new rashes Physical Exam Constitutional: WD/WN, vitals as above Eyes: PERRL, conjunctivae normal, anicteric sclerae ENMT: external ear and nose normal, oropharynx normal Neck: trachea midline, no thyromegaly Respiratory: normal respiratory effort, lungs clear to auscultation Cardiovascular: RRR, no murmur, no edema Gastrointestinal (Abdomen): Inspection/Auscultation: abdomen normal to inspection and + hypoactive bowel sounds Percussion/Palpation: + abdomen tender (moderately tender across the entire upper abdomen) and abdomen soft; no guarding Skin: no rashes, warm and dry Neurologic: PERRL, EOMI, accommodation nl, no face palsy, no dysarthria Psychiatric: A+Ox3, euthymic affect Lymphatic: no cervical or axillary lymphadenopathy Results & Data Vital Signs (Past 12 Hours) Vital Signs Temp Pulse Resp BP BP Pulse Ox 06/28/19 07:22 37.3 C 97 H 16 96/59 L 93 06/28/19 00:00 36.9 C 67 18 100/63 94 06/27/19 22:24 77 18 108/59 L 96 06/27/19 21:43 73 18 113/61 94 06/27/19 21:29 80 18 119/60 97 Laboratory Results AST 416, ALT 389. Bili and Alk Phos normal. Diagnostic Findings CT IV con only Mild increase in biliary ductal prominence compared to the prior study. Mild prominence of several loops of small bowel suggesting nonspecific enteritis. Bowel pattern overall is nonobstructive. Bladder is midline. Moderate degenerative changes of the bony structures are noted. US 06/27/19: Post cholecystectomy. Moderately distended common bile duct 1.5 cm. This is increased from the 9 mm dimension described previously. Study is otherwise negative post cholecystectomy (1) Abdominal pain Abdominal location: epigastric Qualified Code(s): R10.13 - Epigastric pain
[2019-06-28] MEDS: LISINOPRIL 5 MG TAB PO SCH ×3 (09:30→11:26)
[2019-06-28] MEDS: PROPRANOLOL HCL LA 80 MG CAPCR PO SCH ×3 (09:30→11:25)
[2019-06-28] MEDS: ASPIRIN 81 MG ECTAB PO SCH (09:30)
[2019-06-28] MEDS: ROSUVASTATIN CALCIUM 20 MG TAB PO SCH (09:30)
[2019-06-28] MEDS ORDERED: SODIUM CHLORIDE 0.9% 1000ML 1,000 ML IV ONE (09:45)
[2019-06-28] MEDS: HYDROmorphone INJ 1 MG/ML SYRINGE IV STA ×2 (10:12→11:13)
[2019-06-28] MEDS: CIPROFLOXACIN 400 MG/200 ML BAG IV SCH ×2 (11:13→21:09)
--- NOTE | 2019-06-28 11:51 | Hospitalist Progress Note ---
Date of Service June 28, 2019 Assessment & Plan (1) Dilated bile duct: 64 yo F with H cholecystectomy (1995), remote bile duct procedure due to obstruction (1997), HLD, HTN, DM presents wit clinic with epigastric to mid quadrant pain and bilious emesis. Abdominal pain -Liver US: Moderately distended common bile duct 1.5 cm -Abd/Pelvis CT: Moderate nonspecific small bowel enteritis. Slight increase in biliary ductal prominence - Patient has history of bile duct obstruction following cholecystectomy -appreciate GI consult -likely suggestive of choledocolithisis or other obstruction of the bile duct -normal WBC and no fevers means likely not infection related -plan for ERCP this afternoon. -cont with IV fluids -NPO -Cipro IV to cover cholangitis if present -Further recommendations to follow ERCP -Pain control with IV Morphine, Toradol, Dilaudid -N/V: Prn Zofran -Hepatitis Panel ordered, pending Diabetes mellitus -Patient has insulin pump Hyperlipidemia -Continue rosuvastatin. HTN -holding Lisinopril 2/2 low pressures FEN/GI: NPO DVT prophylaxis: SCDs, holding pharmacologic due to ERCP Full Code Dispo: Tele Supervising Physician Co-Signing Physician Notes I saw the patient current resident physician and agree with the impression and plan as noted above. The patient is approximately 16 years status post cholecystectomy who presents with a 1 to 2-day history of right upper quadrant/epigastric abdominal pain. She has a pain is rather constant with intermittent spikes in the pain which seemed to radiate more to the right mid abdominal quadrant. She remains afebrile. She is hemodynamically stable, although she has had decreased p.o. intake and some vomiting so I suspect she may be mildly on the dry side. Interestingly her labs show elevation of ALT and AST but normal alkaline phosphatase and bilirubin. Ultrasound does demonstrate increase in common bile duct when compared to an ultrasound from January of this year (1.5 cm compared to 9 mm in parentheses). Impression Abdominal pain with elevated liver transaminases Remote history of cholecystectomy now with mildly distended common bile duct Diabetic on insulin pump Plan Consult gastroenterology Check acute hepatitis A Dilaudid for pain Fluid bolus Subjective 64 yo F found in bed in mild distress 2/2 abd pain, rates it 9/10. Not really changed with morphine IV. NPO. Ongoing N/V x2. Ok with plan for ERCP today. No other acute concerns or complaints. Review of Systems Review of Systems: All systems reviewed & are unremarkable except as noted in HPI & below Physical Exam Constitutional: WD/WN, vitals as above + acute distress Eyes: PERRL, conjunctivae normal, anicteric sclerae ENMT: external ear and nose normal, oropharynx normal Respiratory: normal respiratory effort, lungs clear to auscultation Cardiovascular: RRR, no murmur, no edema Gastrointestinal (Abdomen): TTP Epigastric and RUQ Skin: no rashes, warm and dry Psychiatric: A+Ox3, euthymic affect Results & Data Vital Signs (Past 12 Hours) Vital Signs Temp Pulse Resp BP BP Pulse Ox 06/28/19 11:30 37.2 C 82 16 95/58 L 97 06/28/19 11:25 68 16 98/68 L 06/28/19 07:22 37.3 C 97 H 16 96/59 L 93 06/28/19 00:00 36.9 C 67 18 100/63 94 Laboratory Results Laboratory Results - last 24 hr 06/27/19 06/27/19 06/27/19 17:40 17:40 17:40 WBC 8.28 RBC 3.91 L Hgb 11.6 L Hct 34.0 L MCV 87.0 MCH 29.7 MCHC 34.1 RDW Std Deviation 42.0 RDW Coeff of Kandy 13.1 Plt Count 143 MPV 10.9 H Immature Gran % (Auto) 0.1 Neut % (Auto) 90.4 Lymph % (Auto) 7.5 [place] % (Auto) 1.9 Eos % (Auto) 0.0 Baso % (Auto) 0.1 Immature Gran # (Auto) 0.01 Neut # (Auto) 7.48 H Lymph # (Auto) 0.62 L [place] # (Auto) 0.16 Eos # (Auto) 0.00 Baso # (Auto) 0.01 Sodium 140 Potassium 3.1 L Chloride 107 Carbon Dioxide 25 Anion Gap 8.0 BUN 21 H Creatinine 0.69 Est Cr Clr Drug Dosing 81.2 Est GFR ( Amer) 108.1 Est GFR (Non-Af Amer) 93.3 BUN/Creatinine Ratio 30.8 H Glucose 104 H POC Glucose Calcium 9.2 Total Bilirubin 0.5 Direct Bilirubin AST 227 H ALT 112 H Alkaline Phosphatase 93 Troponin I < 0.015 Total Protein 6.6 Albumin 3.8 Globulin 2.8 Albumin/Globulin Ratio 1.4 Lipase 69 L Urine Color Urine Appearance Urine pH Ur Specific [place] Urine Protein Urine Glucose (UA) Urine Ketones Urine Blood Urine Nitrite Urine Bilirubin Urine Urobilinogen Ur Leukocyte Esterase Urine WBC (Auto) Urine RBC (Auto) U Hyaline Cast (Auto) U Epithel Cells (Auto) Urine Bacteria (Auto) Ur Renal Epithelial Cell Hepatitis A IgM Ab Hep B Core IgM Ab Hepatitis C Ab Screen Neg 06/27/19 06/28/19 06/28/19 19:45 01:26 06:01 WBC 9.84 RBC 3.75 L Hgb 11.1 L Hct 32.9 L MCV 87.7 MCH 29.6 MCHC 33.7 RDW Std Deviation 42.2 RDW Coeff of [place] 13.1 Plt Count 126 L MPV 10.5 H Immature Gran % (Auto) Neut % (Auto) Lymph % (Auto) [place] % (Auto) Eos % (Auto) Baso % (Auto) Immature Gran # (Auto) Neut # (Auto) Lymph # (Auto) [place] # (Auto) Eos # (Auto) Baso # (Auto) Sodium Potassium Chloride Carbon Dioxide Anion Gap BUN Creatinine Est Cr Clr Drug Dosing Est GFR ( Amer) Est GFR (Non-Af Amer) BUN/Creatinine Ratio Glucose POC Glucose 192 H Calcium Total Bilirubin Direct Bilirubin AST ALT Alkaline Phosphatase Troponin I Total Protein Albumin Globulin Albumin/Globulin Ratio Lipase Urine Color Dark Yellow Urine Appearance Cloudy A Urine pH 8.5 H Ur Specific [place] 1.037 H Urine Protein Negative Urine Glucose (UA) 2+ H Urine Ketones Negative Urine Blood Negative Urine Nitrite Negative Urine Bilirubin Negative Urine Urobilinogen Positive H Ur Leukocyte Esterase Negative Urine WBC (Auto) 1-5 Urine RBC (Auto) 0-4 U Hyaline Cast (Auto) 5-10 H U Epithel Cells (Auto) >30 H Urine Bacteria (Auto) Negative Ur Renal Epithelial Cell Not Reportable Hepatitis A IgM Ab Hep B Core IgM Ab Hepatitis C Ab Screen 06/28/19 06/28/19 06/28/19 06:01 06:54 11:36 WBC RBC Hgb Hct MCV MCH MCHC RDW Std Deviation RDW Coeff of [place] Plt Count MPV Immature Gran % (Auto) Neut % (Auto) Lymph % (Auto) [place] % (Auto) Eos % (Auto) Baso % (Auto) Immature Gran # (Auto) Neut # (Auto) Lymph # (Auto) [place] # (Auto) Eos # (Auto) Baso # (Auto) Sodium 137 Potassium 3.7 D Chloride 107 Carbon Dioxide 25 Anion Gap 5.0 BUN 18 Creatinine 0.58 L Est Cr Clr Drug Dosing 96.6 Est GFR ( Amer) 114.5 Est GFR (Non-Af Amer) 98.8 BUN/Creatinine Ratio 30.3 H Glucose 160 H POC Glucose 188 H Calcium 8.8 Total Bilirubin 0.7 Direct Bilirubin 0.2 AST 416 H ALT 389 H Alkaline Phosphatase 99 Troponin I Total Protein 6.2 L Albumin 3.2 L Globulin 3.0 Albumin/Globulin Ratio 1.1 Lipase Urine Color Urine Appearance Urine pH Ur Specific [place] Urine Protein Urine Glucose (UA) Urine Ketones Urine Blood Urine Nitrite Urine Bilirubin Urine Urobilinogen Ur Leukocyte Esterase Urine WBC (Auto) Urine RBC (Auto) U Hyaline Cast (Auto) U Epithel Cells (Auto) Urine Bacteria (Auto) Ur Renal Epithelial Cell Hepatitis A IgM Ab Pending Hep B Core IgM Ab Pending Hepatitis C Ab Screen Medications Administered Current Inpatient Medications Albuterol (Ventolin 0.083% 2.5mg/3ml) 2.5 mg NEB Q4H PRN PRN Reason: Shortness Of Breath Or Wheezing Stop: 07/27/19 22:05 Aspirin (Ecotrin Ectab) 81 mg PO DAILY [facility] Stop: 07/28/19 08:59 Last Admin: 06/28/19 09:30 Dose: 81 mg Documented by: Dextrose (Dextrose 50%) 25 - 50 ml IV UD PRN; Protocol PRN Reason: Hypoglycemia Protocol Stop: 07/27/19 22:43 Glucagon (Glucagen) 1 mg SQ UD PRN; Protocol PRN Reason: Hypoglycemia Protocol Stop: 07/27/19 22:43 Glucose (Glucose 40%) 15 - 30 gm PO UD PRN; Protocol PRN Reason: Hypoglycemia Protocol Stop: 07/27/19 22:43 Glucose (Dex4 Glucose) 4 - 8 tabs PO UD PRN; Protocol PRN Reason: Hypoglycemia Protocol Stop: 07/27/19 22:43 Potassium Chloride/Sodium Chloride (1/2 Nss + 20meq Kcl 1000ml) 20 meq in 1,000 mls @ 125 mls/hr IV .Q8H [facility] Stop: 07/27/19 22:59 Last Infusion: 06/28/19 10:05 Dose: 0 mls/hr Documented by: Ciprofloxacin (Cipro) 400 mg in 200 mls @ 100 mls/hr IV Q12 [facility]; Protocol Stop: 07/08/19 10:44 Last Admin: 06/28/19 11:13 Dose: 100 mls/hr Documented by: Indomethacin (Indocin) 100 mg LA ONE ONE Stop: 06/28/19 13:01 Insulin Aspart (Novolog Insulin Pump) 1 ea N/A ACHS [facility]; Protocol Stop: 07/28/19 07:29 Last Admin: 06/28/19 09:08 Dose: Not Given Documented by: Insulin Aspart (Novolog Aspart) 0 units SC PRN PRN PRN Reason: Pump Refill Stop: 07/28/19 00:59 Ioversol (Optiray 320 100ml) 93 ml IV ONCE PRN PRN Reason: Interaction Checking Stop: 07/01/19 19:23 Last Admin: 06/27/19 19:25 Dose: 93 ml Documented by: Ketorolac Tromethamine (Toradol) 15 mg IV Q6H PRN PRN Reason: Mild pain/fever Stop: 07/02/19 22:05 Last Admin: 06/28/19 07:48 Dose: 15 mg Documented by: Levothyroxine Sodium (Synthroid) 175 mcg PO DAILYBB [facility] Stop: 07/28/19 06:29 Last Admin: 06/28/19 05:36 Dose: Not Given Documented by: Lisinopril (Zestril) 5 mg PO DAILY [facility] Stop: 07/28/19 08:59 Last Admin: 06/28/19 11:26 Dose: Not Given Documented by: Lorazepam (Ativan) 0.5 mg PO Q6H PRN PRN Reason: Anxiety Stop: 07/27/19 22:43 Miscellaneous (Carbohydrates For Hypoglycemia) 15 - 30 gm PO UD PRN PRN Reason: Hypoglycemia Protocol Stop: 07/27/19 22:43 Montelukast Sodium (Singulair) 10 mg PO HS [facility] Stop: 07/28/19 20:59 Morphine Sulfate (Morphine Sulfate) 2 mg IV Q3H PRN PRN Reason: Moderate Pain Stop: 07/11/19 22:05 Last Admin: 06/27/19 23:21 Dose: 2 mg Documented by: Morphine Sulfate (Morphine Sulfate) 4 mg IV Q4H PRN PRN Reason: Severe Pain Stop: 07/11/19 22:05 Last Admin: 06/28/19 05:36 Dose: 4 mg Documented by: Ondansetron HCl (Zofran) 4 mg IV Q6H PRN PRN Reason: nausea or vomiting Stop: 07/27/19 22:43 Last Admin: 06/28/19 07:57 Dose: 4 mg Documented by: Propranolol HCl (Inderal La) 80 mg PO DAILY [facility] Stop: 07/28/19 08:59 Last Admin: 06/28/19 11:25 Dose: Not Given Documented by: Ranitidine HCl (Zantac) 150 mg PO HS [facility] Stop: 07/28/19 20:59 Ropinirole HCl (Requip) 0.5 mg PO HS [facility] Stop: 07/28/19 20:59 Rosuvastatin Calcium (Crestor) 40 mg PO DAILY [facility] Stop: 07/28/19 08:59 Last Admin: 06/28/19 09:30 Dose: 40 mg Documented by: PG Care Time/CCT Total # of Minutes Spent Total Time Spent with Patient: Total time spent is greater than 50% in coordination of care (as documented) at patient's floor/unit and/or counseling patient: Resident Activity Tracking Resident Involvement: Resident Care Provided Care Provided: Adult Hospital Medicine
[2019-06-28] MEDS ORDERED: ONDANSETRON HCL IV STA (12:57)
[2019-06-28] MEDS ORDERED: DEXTROSE 5% IV STA (12:57)
[2019-06-28] MEDS ORDERED: INDOMETHACIN 50 MG SUPP PR ONE ×2 (13:00→15:48)
[2019-06-28] MEDS ORDERED: ONDANSETRON INJ 2 MG/ML 2 ML VIAL IV STA (13:04)
[2019-06-28] MEDS ORDERED: ONDANSETRON INJ 2 MG/ML 2 ML VIAL ONE (15:30)
[2019-06-28] MEDS ORDERED: MIDAZOLAM HCL 1 MG/ML 2ML VIAL ONE (15:30)
[2019-06-28] MEDS ORDERED: PROPOFOL IV EMULSION 10 MG/ML 20 ML VIAL IV ONE (15:30)
[2019-06-28] MEDS ORDERED: fentaNYL citrate 100 MCG/2 ML VIAL ONE (15:30)
[2019-06-28] MEDS ORDERED: LIDOCAINE HCL 2% 2 ML VIAL/AMP(20MG/ML) INFIL ONE (15:30)
[2019-06-28] MEDS ORDERED: DEXAMETHASONE SOD INJ 4 MG/ML VIAL ONE (15:30)
--- NOTE | 2019-06-28 15:40 | Anesthesiology Consultation ---
Date of Service June 28, 2019 Assessment & Plan ASA ASA3 Proposed Anesthesia Anesthesia Type: General Risk / Benefits Reviewed With: PT / POA / Parent / Guardian, Accepts Plan and Informed Consent Obtained History Surgery Operation Date: 06/28/19 07:00 Proposed Procedures p Endoscopic Retrograde Cholangiopancreatogram - Mariano Estrada MD Height/Weight Height: 5 ft 4 in Weight: 70.1 kg Allergies Allergy/AdvReac Type Severity Reaction Status Date / Time Penicillins Allergy Mild Unknown Verified 06/28/19 10:56 Sulfa (Sulfonamide Allergy Unknown HIVES Verified 10/26/18 11:37 Antibiotics) insulin glargine AdvReac Severe Vomiting Verified 06/28/19 10:57 [From Ciarra Burden U-300 Insulin] Medications Home Medications Medication Instructions Recorded Confirmed Last Taken ergocalciferol (vitamin D2) 50,000 unit PO WK 10/26/18 06/27/19 Unknown [Vitamin D2] levothyroxine 175 mcg PO DAILY 02/09/19 06/27/19 Unknown ondansetron 4 mg PO Q6H PRN #12 tab 02/09/19 06/27/19 Unknown propranolol 80 mg PO DAILY 02/09/19 06/27/19 Unknown ropinirole 0.5 mg PO HS 02/09/19 06/27/19 Unknown rosuvastatin 40 mg PO DAILY 02/09/19 06/27/19 Unknown aspirin 81 mg PO DAILY #30 tab 03/15/19 06/27/19 Unknown albuterol sulfate [Ventolin HFA] 2 puff INHALATION QID PRN 06/27/19 06/27/19 Unknown ibuprofen 800 mg PO TID PRN 06/27/19 06/27/19 Unknown insulin aspart U-100 [Novolog 0 unit SQ .CONTINUOUS 06/27/19 06/27/19 Unknown U-100 Insulin aspart] insulin glargine [Lantus U-100 0 unit SUBCUT DAILY PRN 06/27/19 06/27/19 Unknown Insulin] lisinopril 5 mg PO DAILY 06/27/19 06/27/19 Unknown loratadine 10 mg PO DAILY PRN 06/27/19 06/27/19 Unknown lorazepam 0.5 mg PO Q6H PRN 06/27/19 06/27/19 Unknown montelukast 10 mg PO DAILY 06/27/19 06/27/19 Unknown ranitidine HCl 150 mg PO HS 06/27/19 06/27/19 Unknown sucralfate [Carafate] 10 ml PO QID 06/27/19 06/27/19 Unknown Active Medications Generic Name Dose Route Start Last Admin Trade Name Freq PRN Reason Stop Dose Admin Aspirin 81 mg 06/28/19 09:00 06/28/19 09:30 Ecotrin Ectab PO 07/28/19 08:59 81 mg DAILY [facility] Administration Potassium Chloride/Sodium Chloride 20 meq in 1,000 mls @ 125 mls/hr 06/27/19 23:00 06/28/19 13:14 1/2 Nss + 20meq Kcl 1000ml IV 07/27/19 22:59 125 mls/hr .Q8H [facility] Infusion Ciprofloxacin 400 mg in 200 mls @ 100 mls/hr 06/28/19 10:45 06/28/19 13:14 Cipro IV 07/08/19 10:44 Infused Q12 [facility] Infusion Protocol Insulin Aspart 1 ea 06/28/19 07:30 06/28/19 12:26 Novolog Insulin Pump N/A 07/28/19 07:29 Not Given ACHS [facility] Protocol Ioversol 93 ml 06/27/19 19:24 06/27/19 19:25 Optiray 320 100ml IV 07/01/19 19:23 93 ml ONCE PRN Administration Interaction Checking Ketorolac Tromethamine 15 mg 06/27/19 22:06 06/28/19 07:48 Toradol IV 07/02/19 22:05 15 mg Q6H PRN Administration Mild pain/fever Levothyroxine Sodium 175 mcg 06/28/19 06:30 06/28/19 05:36 Synthroid PO 07/28/19 06:29 [facility] Lisinopril 5 mg 06/28/19 09:00 06/28/19 11:26 Zestril PO 07/28/19 08:59 Not Given DAILY [facility] Morphine Sulfate 2 mg 06/27/19 22:06 06/27/19 23:21 Morphine Sulfate IV 07/11/19 22:05 2 mg Q3H PRN Administration Moderate Pain Morphine Sulfate 4 mg 06/27/19 22:06 06/28/19 05:36 Morphine Sulfate IV 07/11/19 22:05 4 mg Q4H PRN Administration Severe Pain Ondansetron HCl 4 mg 06/27/19 22:44 06/28/19 07:57 Zofran IV 07/27/19 22:43 4 mg Q6H PRN Administration nausea or vomiting Propranolol HCl 80 mg 06/28/19 09:00 06/28/19 11:25 Inderal La PO 07/28/19 08:59 Not Given DAILY [facility] Rosuvastatin Calcium 40 mg 06/28/19 09:00 06/28/19 09:30 Crestor PO 07/28/19 08:59 40 mg DAILY [facility] Administration NPO Date Last Intake of Fluids: 06/28/19 Time Last Intake of Fluids: 00:00 Date Last Intake of Solids: 06/28/19 Time Last Intake of Solids: 00:00 Past Medical History Medical History Hyperlipidemia (Chronic) Diabetes mellitus (Chronic) Chest pain (Resolved) DKA (diabetic ketoacidosis) Dizziness (Acute) Hyperglycemia due to type 2 diabetes mellitus (Acute) Biliary obstruction Exercise / Class Metabolic Activity II 4-5 Yardwork/Stairs/Walk up hill Past Family History Family History Other No significant family history Past Surgical History Surgical History History of cholecystectomy Past Anesthesia History No Hx of Anesthesia Complications and No Family Hx of Anesthesia Complications History of PONV No Hx of PONV and No Hx of Motion Sickness Social History Smoking Status: Current every day smoker tobacco type: cigarettes Smoking cigarettes per day: 6 Do You Dip or Chew Tobacco: No Hx Alcohol Use: No Hx Substance Use: No Review of Systems denies fever/cough/ colds/ chest pain/ SOB/ MANPREET denies IA/CVA/Seizure Physical Exam Vital Signs Last Vital Signs Temp 37.1 C 06/28/19 15:23 Pulse 79 06/28/19 15:23 Resp 18 06/28/19 15:23 BP 97/61 L 06/28/19 15:23 Pulse Ox 95 06/28/19 15:23 ENMT Mouth: no TMJ abnormality and no dentition abnormality Thyromental Distance: > or= 3.5 Finger Breadths Mallampati Class: II Neck neck extension not limited Respiratory normal respiratory effort; no respiratory distress Auscultation: lungs clear to auscultation bilaterally Cardiovascular Rate/Rhythm: regular rate and regular rhythm Neurologic moves all extremities Psychiatric Orientation: alert and oriented x 3 Testing Laboratory Results 06/28/19 06:01 06/28/19 06:01 Urine Color Dark Yellow 06/27/19 19:45 Urine Appearance Cloudy (Clear) A 06/27/19 19:45 Urine pH 8.5 (4.5-7.5) H 06/27/19 19:45 Ur Specific [place] 1.037 (1.000-1.030) H 06/27/19 19:45 Urine Protein Negative (Negative) 06/27/19 19:45 Urine Glucose (UA) 2+ (Negative) H 06/27/19 19:45 Urine Ketones Negative (Negative) 06/27/19 19:45 Urine Nitrite Negative (Negative) 06/27/19 19:45 Ur Leukocyte Esterase Negative (Negative) 06/27/19 19:45 Urine WBC (Auto) 1-5 /hpf (0-5) 06/27/19 19:45 Urine RBC (Auto) 0-4 /hpf (0-4) 06/27/19 19:45 U Hyaline Cast (Auto) 5-10 /lpf (0-5) H 06/27/19 19:45 U Epithel Cells (Auto) >30 /lpf (0-5) H 06/27/19 19:45 Urine Bacteria (Auto) Negative (Negative) 06/27/19 19:45 06/28/19 06:54 POC Glucose 188 H
[2019-06-28] MEDS ORDERED: SUCCINYLCHOLINE CHLORIDE 20 MG/ML 10 ML VIAL ONE (16:30)
--- NOTE | 2019-06-28 16:49 | Operative Report ---
Post Operative Report Pre & Post Diagnosis Operation Date: 06/28/19 07:00 Pre-Op Diagnosis: ABDOMINAL PAIN, ELEVATED LFTS Post-Op Diagnosis: ABDOMINAL PAIN, ELEVATED LFTS I identified the patient and participated in the time-out.: Yes Procedure Operation Date: 06/28/19 07:00 Actual Procedures p Endoscopic Retrograde Cholangiopancreatogram(Not Applicable) - Mariano Estrada MD Surgeon Mariano Estrada MD Alpine Patroller None Estimated Blood Loss 0 Findings See Below (papillary stenosis, sludge removed. Sphincterotomy and balloon dilation.) Specimens None Description of Procedure ERCP I attest to the content of the Intraoperative Record and any orders documented therein. Any exceptions are noted below.
--- NOTE | 2019-06-28 17:12 | Fluoroscopy Report ---
[place] ERCP biliary ductal CLINICAL HISTORY: ERCP IN OR COMPARISON STUDY: Liver ultrasound 06/27/2019. CT study 06/27/2019. FLUOROSCOPY TIME: 1 minute 8 seconds NUMBER OF FLUOROSCOPIC IMAGES: 7 FINDINGS: Retrograde opacification of the biliary ductal system shows a dilatation of the extra hepat ic common bile. Intrahepatic ducts did not appear to be distended. The obtained images show considerable motion artifact with no well-defined filling defect. IMPRESSION: ERCP with successful demonstration of a distended extrahepatic common bile duct. The above report was generated using voice recognition software. It may contain grammatical, syntax or spelling errors. Electronically signed by: Devon Cedillo M.D. 06/28/2019 5:10 PM
--- NOTE | 2019-06-28 17:32 | Anesthesiology Progress Note ---
Date of Service June 28, 2019 Anesthesia Post Procedure Vital Signs Vital Signs: Temp Pulse Pulse Pulse Resp BP BP 06/28/19 17:30 70 16 06/28/19 17:20 66 18 06/28/19 17:10 70 18 06/28/19 17:00 36.4 C L 75 22 06/28/19 15:23 37.1 C 79 18 06/28/19 11:30 37.2 C 82 16 95/58 L 06/28/19 11:25 68 16 98/68 L 06/28/19 07:22 37.3 C 97 H 16 96/59 L 06/28/19 00:00 36.9 C 67 18 06/27/19 22:24 77 18 108/59 L 06/27/19 21:43 73 18 113/61 06/27/19 21:29 80 18 119/60 06/27/19 20:59 73 20 102/54 L 06/27/19 20:13 73 18 108/58 L 06/27/19 19:45 74 18 124/64 06/27/19 19:00 70 12 105/55 L 06/27/19 18:57 73 72 13 103/65 103/65 06/27/19 18:30 72 12 104/58 L 06/27/19 18:00 77 13 107/62 06/27/19 17:46 75 21 119/65 BP Pulse Ox 06/28/19 17:30 128/62 95 06/28/19 17:20 119/65 97 06/28/19 17:10 122/61 99 06/28/19 17:00 116/53 L 99 06/28/19 15:23 97/61 L 95 06/28/19 11:30 97 06/28/19 11:25 06/28/19 07:22 93 06/28/19 00:00 100/63 94 06/27/19 22:24 96 06/27/19 21:43 94 06/27/19 21:29 97 06/27/19 20:59 96 06/27/19 20:13 98 06/27/19 19:45 99 06/27/19 19:00 95 06/27/19 18:57 95 06/27/19 18:30 95 06/27/19 18:00 94 06/27/19 17:46 95 Pain Intensity Upper Abdomen: Pain Intensity: 8 Transfer of Care Handoff Completed per policy Notes Mental Status: alert / awake / arousable and participated in evaluation Patient Amnestic to Procedure: Yes Nausea / Vomiting: adequately controlled Pain: adequately controlled Airway Patency, RR, SpO2: stable & adequate BP & HR: stable & adequate Hydration State: stable & adequate Anesthetic Complications: no major complications apparent and Pt Satisfied with anesthetic care
--- NOTE | 2019-06-28 18:00 | GI REPORT ---
Patient Name: Jes Patel Procedure Date: 06/28/2019 3:56 PM Date of : 1955 Admit Type: Inpatient Age: 64 Gender: Female Attending MD: Mariano Estrada MD Procedure: Upper GI endoscopy Providers: Mariano Estrada MD Referring MD: Shree Montes Indications: Epigastric abdominal pain Medicines: Propofol per Anesthesia Complications: No immediate complications. Estimated Blood Loss: Estimated blood loss: none. Procedure: Pre-Anesthesia Assessment: - Prior to the procedure, a History and Physical was performed, and patient medications, allergies and sensitivities were reviewed. The patient's tolerance of previous anesthesia was reviewed. - The risks and benefits of the procedure and the sedation options and risks were discussed with the patient. All questions were answered and informed consent was obtained. - Patient identification and proposed procedure were verified prior to the procedure by the physician and the nurse. The procedure was verified in the procedure room. - Pre-procedure physical examination revealed no contraindications to sedation. After obtaining informed consent, the endoscope was passed under direct vision. Throughout the procedure, the patient's blood pressure, pulse, and oxygen saturations were monitored continuously. The Endoscope was introduced through the mouth, and advanced to the second part of duodenum. The upper GI endoscopy was accomplished without difficulty. The patient tolerated the procedure well. Findings: The examined esophagus was normal. Diffuse moderate inflammation characterized by adherent blood, erosions and erythema was found in the gastric body. Biopsies were taken with a cold forceps for Helicobacter pylori testing. Verification of patient identification for the specimen was done by the physician and nurse using the patient's name and date. The duodenal bulb and second portion of the duodenum were normal. Impression: - Normal esophagus. - Gastritis. Biopsied. - Normal duodenal bulb and second portion of the duodenum. Recommendation: - Use a proton pump inhibitor IV BID for 2 days then switch to PO BID for 2 months. - Avoid NSAIDs. - Perform an ERCP today. Mariano Estrada MD 06/28/2019 6:00:18 PM This report has been signed electronically. Note Initiated On: 06/28/2019 3:56 PM Number of Addenda: 0 I attest to the content of the Intraoperative Record and orders documented therein, exceptions below {[id number]}
[2019-06-28] MEDS: PANTOprazole 40 MG in SYRINGE 0 ML IV SCH ×2 (18:13→21:09)
--- NOTE | 2019-06-28 18:13 | GI REPORT ---
Patient Name: Jes Patel Procedure Date: 06/28/2019 4:12 PM Date of : 1955 Admit Type: Inpatient Age: 64 Gender: Female Attending MD: Mariano Estrada MD Procedure: ERCP Providers: Mariano Estrada MD Referring MD: Shree Montes Indications: Abdominal pain of suspected biliary origin, Biliary dilation on Computed Tomogram Scan, Suspected ascending cholangitis, Elevated liver enzymes Medicines: Propofol per Anesthesia Complications: No immediate complications. Estimated Blood Loss: Estimated blood loss: none. Procedure: Pre-Anesthesia Assessment: - Prior to the procedure, a History and Physical was performed, and patient medications, allergies and sensitivities were reviewed. The patient's tolerance of previous anesthesia was reviewed. - The risks and benefits of the procedure and the sedation options and risks were discussed with the patient. All questions were answered and informed consent was obtained. - Patient identification and proposed procedure were verified prior to the procedure by the physician and the nurse. The procedure was verified in the procedure room. - Pre-procedure physical examination revealed no contraindications to sedation. After obtaining informed consent, the scope was passed under direct vision. Throughout the procedure, the patient's blood pressure, pulse, and oxygen saturations were monitored continuously. The Scope was introduced through the mouth, and advanced to the duodenum and used to inject contrast into the bile duct. The ERCP was accomplished without difficulty. The patient tolerated the procedure well. Findings: A biliary stent was visible on the service dismantler film. The esophagus was successfully intubated under direct vision. The scope was advanced to a normal major papilla in the descending duodenum without detailed examination of the pharynx, larynx and associated structures, and upper GI tract. The upper GI tract was grossly normal. The major papilla was located entirely within a diverticulum. An impacted stone was seen. A 0.035 inch straight standard wire was passed into the biliary tree. The Fusion OMNI sphincterotome was passed over the guidewire and the bile duct was then deeply cannulated. Contrast was injected. I personally interpreted the bile duct images. Ductal flow of contrast was adequate. Image quality was adequate. Contrast extended to the main bile duct. The main bile duct was markedly dilated. The largest diameter was 15 mm. The biliary orifice was stenotic. This appeared benign. Biliary sphincterotomy was made with a monofilament traction (standard) sphincterotome using ERBE electrocautery. There was no post-sphincterotomy bleeding. Bile duct orifice was successfully dilated with a 10 mm balloon dilator. The biliary tree was swept with a 15 mm balloon starting at the bifurcation. Sludge was swept from the duct. One stone was removed. No stones remained. Indomethacin 100 mg was given via suppository to decrease the risk of post-ERCP pancreatitis (PEP). PD was not cannulated nor injected with contrast. Impression: - The major papilla was located entirely within a diverticulum. Benign biliary papillary stenosis noted. - The entire main bile duct was markedly dilated. Choledocholithiasis was found. Complete removal was accomplished by biliary sphincterotomy, sphincteroplasty and balloon extraction. Recommendation: - [facility]. - Avoid aspirin and nonsteroidal anti-inflammatory medicines. - Advance diet as tolerated. Mariano Estrada MD 06/28/2019 6:12:30 PM This report has been signed electronically. Note Initiated On: 06/28/2019 4:12 PM Number of Addenda: 0 I attest to the content of the Intraoperative Record and orders documented therein, exceptions below {[id number]}
[2019-06-28] MEDS: MONTELUKAST SODIUM 10 MG TABLET PO SCH (21:10)
[2019-06-28] MEDS: ROPINIROLE HCL 0.25 MG TABLET PO SCH (21:10)
--- NOTE | 2019-06-28 22:08 | Emergency Department Note ---
Entered by Natalie Tang acting as a scribe for Fabio Peñaloza MD History of Present Illness General Chief complaint: Abdominal Pain Stated complaint: AB PAIN Source: patient History of Present Illness Onset (ago): hour(s) (began 9:30am today) Location: abdomen (epigastric) Radiation: non-radiation Pain Consistency: + constant Maximum Pain Intensity: 8 Quality: + sharp Associated symptoms: + denies other symptoms (hematochezia, melena, hematuria, dysuria, change in skin color, abnormal vaginal discharge or bleeding), + diaphoresis and + other (diarrhea 1 day ago and now resolved, vomiting); no chest pain, no fever/chills and no shortness of breath The patient is a 64 year old female with a PMHx pertinent for cholecystectomy in 1995, biliary obstruction without jaundice, and other relevant medical history indicated on [facility] who presents to the Emergency Room with complaints of abdominal pain. The patient states that she began to experience brown diarrhea 1 day ago which has since resolved. Today at 9:30AM she began to experience sharp epigastric abdominal pain associated with vomiting and diaphoresis. She states that her pain does not radiate to her back or chest. She states the pain feels similar to when she had her biliary obstruction. No alleviating factors. The patient denies fever, dysuria, hematuria, change in skin color, abnormal vaginal discharge or bleeding, melena, hematochezia, chest pain, and shortness of breath. The patient offers no additional complaints at this time. Home Medications Home Medications Medication Instructions Recorded Confirmed Type ergocalciferol (vitamin D2) 50,000 unit PO WK 10/26/18 06/27/19 History [Vitamin D2] levothyroxine 175 mcg PO DAILY 02/09/19 06/27/19 History ondansetron 4 mg PO Q6H PRN #12 tab 02/09/19 06/27/19 Rx propranolol 80 mg PO DAILY 02/09/19 06/27/19 History ropinirole 0.5 mg PO HS 02/09/19 06/27/19 History rosuvastatin 40 mg PO DAILY 02/09/19 06/27/19 History aspirin 81 mg PO DAILY #30 tab 03/15/19 06/27/19 Rx albuterol sulfate [Ventolin HFA] 2 puff INHALATION QID PRN 06/27/19 06/27/19 History ibuprofen 800 mg PO TID PRN 06/27/19 06/27/19 History insulin aspart U-100 [Novolog 0 unit SQ .CONTINUOUS 06/27/19 06/27/19 History U-100 Insulin aspart] insulin glargine [Lantus U-100 0 unit SUBCUT DAILY PRN 06/27/19 06/27/19 History Insulin] lisinopril 5 mg PO DAILY 06/27/19 06/27/19 History loratadine 10 mg PO DAILY PRN 06/27/19 06/27/19 History lorazepam 0.5 mg PO Q6H PRN 06/27/19 06/27/19 History montelukast 10 mg PO DAILY 06/27/19 06/27/19 History ranitidine HCl 150 mg PO HS 06/27/19 06/27/19 History sucralfate [Carafate] 10 ml PO QID 06/27/19 06/27/19 History Allergies Allergy/AdvReac Type Severity Reaction Status Date / Time Penicillins Allergy Mild Unknown Verified 06/28/19 10:56 Sulfa (Sulfonamide Allergy Unknown HIVES Verified 10/26/18 11:37 Antibiotics) insulin glargine AdvReac Severe Vomiting Verified 06/28/19 10:57 [From [employer] U-300 Insulin] Past Med/Surg History Medical History Hyperlipidemia (Chronic) Diabetes mellitus (Chronic) Chest pain (Resolved) DKA (diabetic ketoacidosis) Dizziness (Acute) Hyperglycemia due to type 2 diabetes mellitus (Acute) Biliary obstruction Surgical History History of cholecystectomy Family History Other No significant family history Social History Preferred Language: Turkish Communication Ability: Effective Visual Impairment: No Limitations Hearing Ability: Normal Neurology Specialist Required: No Beliefs That Will Affect Care: None Current Living Situation: Family Feels Safe at Home: Yes Smoking Status: Current every day smoker Tobacco Type: cigarettes ; Cigarettes Per Day: 6 ; Hx Alcohol Use: No Hx Substance Use: No Review of Systems See HPI for pertinent positives & negatives. and A total of 10 systems reviewed and were otherwise negative Physical Exam Vital Signs Vital Signs - 24 hr 06/27/19 17:20 06/27/19 17:24 06/27/19 17:29 Temperature 98.2 F Temperature Source Oral Sepsis Recent Fever Within 48 Hours No Sepsis New/Unexplained Change in Mental Status No Sepsis Action Taken by Nursing No Action Required Pulse Rate 91 H 88 Pulse Rate [Right Finger] Pulse Rate from SpO2 Sensor 90 Pulse Rhythm [Right Finger] Pulse Strength [Right Finger] Respiratory Rate 19 13 Respiratory Effort / Characteristics Respiratory Depth Blood Pressure 128/73 128/73 Blood Pressure [Left Arm] Blood Pressure Mean 91 91 Blood Pressure Mean [Left Arm] Pulse Oximetry 94 94 Oxygen Delivery Method Room Air 06/27/19 17:30 06/27/19 17:46 06/27/19 18:00 Temperature Temperature Source Sepsis Recent Fever Within 48 Hours Sepsis New/Unexplained Change in Mental Status Sepsis Action Taken by Nursing Pulse Rate 75 75 77 Pulse Rate [Right Finger] Pulse Rate from SpO2 Sensor 76 74 77 Pulse Rhythm [Right Finger] Pulse Strength [Right Finger] Respiratory Rate 24 21 13 Respiratory Effort / Characteristics Respiratory Depth Blood Pressure 126/62 119/65 107/62 Blood Pressure [Left Arm] Blood Pressure Mean 83 83 77 Blood Pressure Mean [Left Arm] Pulse Oximetry 96 95 94 Oxygen Delivery Method 06/27/19 18:30 06/27/19 18:57 06/27/19 19:00 Temperature Temperature Source Sepsis Recent Fever Within 48 Hours Sepsis New/Unexplained Change in Mental Status Sepsis Action Taken by Nursing Pulse Rate 72 73 70 Pulse Rate [Right Finger] 72 Pulse Rate from SpO2 Sensor 73 73 72 Pulse Rhythm [Right Finger] Pulse Strength [Right Finger] Respiratory Rate 12 13 12 Respiratory Effort / Characteristics Respiratory Depth Blood Pressure 104/58 L 103/65 105/55 L Blood Pressure [Left Arm] 103/65 Blood Pressure Mean 73 77 71 Blood Pressure Mean [Left Arm] 77 Pulse Oximetry 95 95 95 Oxygen Delivery Method Room Air 06/27/19 19:45 06/27/19 20:13 06/27/19 20:59 Temperature Temperature Source Sepsis Recent Fever Within 48 Hours Sepsis New/Unexplained Change in Mental Status Sepsis Action Taken by Nursing Pulse Rate Pulse Rate [Right Finger] 74 73 73 Pulse Rate from SpO2 Sensor Pulse Rhythm [Right Finger] Regular Pulse Strength [Right Finger] Normal Respiratory Rate 18 18 20 Respiratory Effort / Characteristics Non-Labored Respiratory Depth Normal Blood Pressure Blood Pressure [Left Arm] 124/64 108/58 L 102/54 L Blood Pressure Mean Blood Pressure Mean [Left Arm] 84 74 70 Pulse Oximetry 99 98 96 Oxygen Delivery Method Room Air 06/27/19 21:29 06/27/19 21:43 Temperature Temperature Source Sepsis Recent Fever Within 48 Hours Sepsis New/Unexplained Change in Mental Status Sepsis Action Taken by Nursing Pulse Rate Pulse Rate [Right Finger] 80 73 Pulse Rate from SpO2 Sensor Pulse Rhythm [Right Finger] Pulse Strength [Right Finger] Respiratory Rate 18 18 Respiratory Effort / Characteristics Respiratory Depth Blood Pressure Blood Pressure [Left Arm] 119/60 113/61 Blood Pressure Mean Blood Pressure Mean [Left Arm] 79 78 Pulse Oximetry 97 94 Oxygen Delivery Method Room Air Room Air Constitutional: Vital signs reviewed. Eyes: Pupils are equal round reactive to light. Conjunctiva are noninjected. ENT: Pharynx is clear without erythema or exudate. Mucous membranes are moist. Neck supple without meningeal signs. Respiratory: Clear to auscultation bilaterally. Breath sounds are equal bilat erally. Cardiovascular: Regular rate and rhythm. No rubs or gallops. GI: Soft, nondistended. Epigastric tenderness. No guarding. Bowel sounds are present. Musculoskeletal: No peripheral edema. No lower extremity tenderness. Integumentary: No cyanosis. Diaphoretic. Neurological: The patient is awake and alert. No focal deficits. Psychiatric: Normal affect. Course 173: Past medical records reviewed. The patient was evaluated in room B2. A complete history and physical exam was performed. 1908: The patient is feeling better. I discussed her test results with her and she is waiting for ultrasound. 2127: [facility]. Administered Medications Aspirin (Ecotrin Ectab) 81 mg PO DAILY [facility] Stop: 07/28/19 08:59 Last Admin: 06/28/19 09:30 Dose: 81 mg Documented by: [id number] Potassium Chloride/Sodium Chloride (1/2 Nss + 20meq Kcl 1000ml) 20 meq in 1,000 mls @ 125 mls/hr IV .Q8H [facility] Stop: 07/27/19 22:59 Last Admin: 06/28/19 18:00 Dose: 125 mls/hr Documented by: [id number] Infusion: 06/28/19 18:00 Dose: 125 mls/hr Documented by: [id number] Infusion: 06/28/19 13:14 Dose: 125 mls/hr Documented by: [id number] Infusion: 06/28/19 10:05 Dose: 0 mls/hr Documented by: [id number] Admin: 06/28/19 07:11 Dose: 125 mls/hr Documented by: [id number] Infusion: 06/28/19 07:11 Dose: 125 mls/hr Documented by: [id number] Admin: 06/27/19 23:42 Dose: 125 mls/hr Documented by: [id number] Ciprofloxacin (Cipro) 400 mg in 200 mls @ 100 mls/hr IV Q12 [facility]; Protocol Stop: 07/08/19 10:44 Last Admin: 06/28/19 21:09 Dose: 100 mls/hr Documented by: [id number] Infusion: 06/28/19 13:14 Dose: 0 mls/hr Documented by: [id number] Admin: 06/28/19 11:13 Dose: 100 mls/hr Documented by: [id number] Pantoprazole Sodium 40 mg/ (Syringe) 10 mls @ 5 mls/min IV BID@0900,2100 [facility] Stop: 07/28/19 17:59 Last Admin: 06/28/19 21:09 Dose: 5 mls/min Documented by: [id number] Admin: 06/28/19 18:13 Dose: 5 mls/min Documented by: [id number] Insulin Aspart (Novolog Insulin Pump) 1 ea N/A ACHS [facility]; Protocol Stop: 07/28/19 07:29 Last Admin: 06/28/19 21:08 Dose: 1 ea Documented by: [id number] Admin: 06/28/19 18:01 Dose: 1 ea Documented by: [id number] Cosigned by: [id number] Admin: 06/28/19 12:26 Dose: Not Given Documented by: [id number] Admin: 06/28/19 09:08 Dose: Not Given Documented by: [id number] Cosigned by: [id number] Ioversol (Optiray 320 100ml) 93 ml IV ONCE PRN PRN Reason: Interaction Checking Stop: 07/01/19 19:23 Last Admin: 06/27/19 19:25 Dose: 93 ml Documented by: [id number] Ketorolac Tromethamine (Toradol) 15 mg IV Q6H PRN PRN Reason: Mild pain/fever Stop: 07/02/19 22:05 Last Admin: 06/28/19 07:48 Dose: 15 mg Documented by: [id number] [facility]: 07/28/19 06:29 Last Admin: 06/28/19 05:36 Dose: Not Given Documented by: [id number] Lisinopril (Zestril) 5 mg PO DAILY [facility] Stop: 07/28/19 08:59 Last Admin: 06/28/19 11:26 Dose: Not Given Documented by: [id number] Montelukast Sodium (Singulair) 10 mg PO HS [facility] Stop: 07/28/19 20:59 Last Admin: 06/28/19 21:10 Dose: 10 mg Documented by: [id number] Morphine Sulfate (Morphine Sulfate) 2 mg IV Q3H PRN PRN Reason: Moderate Pain Stop: 07/11/19 22:05 Last Admin: 06/27/19 23:21 Dose: 2 mg Documented by: [id number] Morphine Sulfate (Morphine Sulfate) 4 mg IV Q4H PRN PRN Reason: Severe Pain Stop: 07/11/19 22:05 Last Admin: 06/28/19 18:43 Dose: 4 mg Documented by: [id number] Admin: 06/28/19 05:36 Dose: 4 mg Documented by: [id number] Ondansetron HCl (Zofran) 4 mg IV Q6H PRN PRN Reason: nausea or vomiting Stop: 07/27/19 22:43 Last Admin: 06/28/19 18:43 Dose: 4 mg Documented by: [id number] Admin: 06/28/19 07:57 Dose: 4 mg Documented by: [id number] Admin: 06/28/19 01:49 Dose: 4 mg Documented by: [id number] Propranolol HCl (Inderal La) 80 mg PO DAILY [facility] Stop: 07/28/19 08:59 Last Admin: 06/28/19 11:25 Dose: Not Given Documented by: [id number] Ranitidine HCl (Zantac) 150 mg PO [facility] Stop: 07/28/19 20:59 Last Admin: 06/28/19 21:10 Dose: 150 mg Documented by: [id number] Ropinirole HCl (Requip) 0.5 mg PO [facility] Stop: 07/28/19 20:59 Last Admin: 06/28/19 21:10 Dose: 0.5 mg Documented by: [id number] Rosuvastatin Calcium (Crestor) 40 mg PO DAILY [facility] Stop: 07/28/19 08:59 Last Admin: 06/28/19 09:30 Dose: 40 mg Documented by: [id number] Discontinued Medications Fentanyl Citrate (Fentanyl Citrate) 50 mcg IV NOW STA Stop: 06/27/19 21:18 Last Admin: 06/27/19 21:23 Dose: 50 mcg Documented by: [id number] Hydromorphone HCl (Dilaudid) 1 mg IV NOW STA Stop: 06/28/19 09:46 Last Admin: 06/28/19 11:13 Dose: 1 mg Documented by: [id number] Sodium Chloride (Nss 1000ml) 1,000 mls @ 999 mls/hr IV .Q1H1M ONE Stop: 06/28/19 10:45 Last Infusion: 06/28/19 11:06 Dose: 0 mls/hr Documented by: [id number] Admin: 06/28/19 10:05 Dose: 999 mls/hr Documented by: [id number] Indomethacin (Indocin) 100 mg NM ONE ONE Stop: 06/28/19 13:01 Last Admin: 06/28/19 16:45 Dose: 100 mg Documented by: [id number] Indomethacin (Indocin) Confirm Administered Dose 100 mg NM .STK-MED ONE Stop: 06/28/19 15:49 Last Admin: 06/28/19 17:59 Dose: Not Given Documented by: [id number] Influenza Virus Vaccine Quadrival (Flucelvax Quad Vaccine) 0.5 ml IM .ONCE ONE Stop: 06/28/19 08:01 Last Admin: 06/28/19 10:08 Dose: 0.5 ml Documented by: [id number] Morphine Sulfate (Morphine Sulfate) 4 mg IV NOW STA Stop: 06/27/19 17:42 Last Admin: 06/27/19 17:47 Dose: 4 mg Documented by: [id number] Ondansetron HCl (Zofran) 4 mg IV NOW STA Stop: 06/27/19 17:42 Last Admin: 06/27/19 17:47 Dose: 4 mg Documented by: [id number] Ondansetron HCl (Zofran) 4 mg IV NOW STA Stop: 06/27/19 21:18 Last Admin: 06/27/19 21:23 Dose: 4 mg Documented by: [id number] Ondansetron HCl (Zofran) 4 mg IV NOW STA Stop: 06/28/19 13:05 Last Admin: 06/28/19 13:10 Dose: 4 mg Documented by: [id number] Pneumococcal Polyvalent Vaccine (Pneumovax-23) 25 mcg IM .ONCE ONE Stop: 06/28/19 08:01 Last Admin: 06/28/19 10:11 Dose: 25 mcg Documented by: [id number] Medical Decision Making Differential Diagnosis Differential diagnosis includes but is not limited to choledocholithiasis, biliary obstruction, PR, PUD, pancreatitis Medical Records Attestation: I reviewed the patient's medical records. I did perform a limited focused review of portions of the patient's old chart on the electronic medical record. The patient has had no recent pertinent visits to this hospital. The patient had a cardiac cath in February 2019 and her doctor recommended medical therapy. Home Medications Current Medication List: was personally reviewed by me Laboratory Data Attestation: I reviewed the patient's lab results. Result diagrams: 06/28/19 06:01 06/28/19 06:01 Lab Results 06/27/19 06/27/19 06/27/19 Range/Units 17:40 17:40 17:40 WBC 8.28 (4.8-10.8) K/uL RBC 3.91 L (4.2-5.4) M/uL Hgb 11.6 L (12.0-16.0) g/dL Hct 34.0 L (37-47) % MCV 87.0 (80-100) fL MCH 29.7 (25-34) pg MCHC 34.1 (32-36) g/dL RDW Std Deviation 42.0 (36.4-46.3) fL RDW Coeff of Kandy 13.1 (11.5-14.5) % Plt Count 143 (130-400) K/uL MPV 10.9 H (7.4-10.4) fL Immature Gran % (Auto) 0.1 % Neut % (Auto) 90.4 % Lymph % (Auto) 7.5 % [place] % (Auto) 1.9 % Eos % (Auto) 0.0 % Baso % (Auto) 0.1 % Immature Gran # (Auto) 0.01 (0.00-0.02) K/uL Neut # (Auto) 7.48 H (1.4-6.5) K/uL Lymph # (Auto) 0.62 L (1.2-3.4) K/uL [place] # (Auto) 0.16 (0.11-0.59) K/uL Eos # (Auto) 0.00 (0-0.5) K/uL Baso # (Auto) 0.01 (0-0.2) K/uL Sodium 140 (136-145) mmol/L Potassium 3.1 L (3.5-5.1) mmol/L Chloride 107 (98-107) mmol/L Carbon Dioxide 25 (21-32) mmol/L Anion Gap 8.0 (3-11) BUN 21 H (7-18) mg/dl Creatinine 0.69 (0.6-1.2) mg/dl Est Cr Clr Drug Dosing 81.2 ml/min Est GFR ( Amer) 108.1 Est GFR (Non-Af Amer) 93.3 BUN/Creatinine Ratio 30.8 H (10-20) Glucose 104 H (70-99) mg/dl Calcium 9.2 (8.5-10.1) mg/dl Total Bilirubin 0.5 (0.2-1) mg/dl AST 227 H (15-37) U/L ALT 112 H (12-78) U/L Alkaline Phosphatase 93 (45-117) U/L Troponin I < 0.015 (0-0.045) ng/ml Total Protein 6.6 (6.4-8.2) gm/dl Albumin 3.8 (3.4-5.0) gm/dl Globulin 2.8 (2.5-4.0) gm/dl Albumin/Globulin Ratio 1.4 (0.9-2) Lipase 69 L (73-393) U/L Urine Color Urine Appearance (Clear) Urine pH (4.5-7.5) Ur Specific [place] (1.000-1.030) Urine Protein (Negative) Urine Glucose (UA) (Negative) Urine Ketones (Negative) Urine Blood (Negative) Urine Nitrite (Negative) Urine Bilirubin (Negative) Urine Urobilinogen (Negative) Ur Leukocyte Esterase (Negative) Urine WBC (Auto) (0-5) /hpf Urine RBC (Auto) (0-4) /hpf U Hyaline Cast (Auto) (0-5) /lpf U Epithel Cells (Auto) (0-5) /lpf Urine Bacteria (Auto) (Negative) Ur Renal Epithelial Cell Hepatitis C Ab Screen Neg (Neg) 06/27/19 Range/Units 19:45 WBC (4.8-10.8) K/uL RBC (4.2-5.4) M/uL Hgb (12.0-16.0) g/dL Hct (37-47) % MCV (80-100) fL MCH (25-34) pg MCHC (32-36) g/dL RDW Std Deviation (36.4-46.3) fL RDW Coeff of Kandy (11.5-14.5) % Plt Count (130-400) K/uL MPV (7.4-10.4) fL Immature Gran % (Auto) % Neut % (Auto) % Lymph % (Auto) % [place] % (Auto) % Eos % (Auto) % Baso % (Auto) % Immature Gran # (Auto) (0.00-0.02) K/uL Neut # (Auto) (1.4-6.5) K/uL Lymph # (Auto) (1.2-3.4) K/uL [place] # (Auto) (0.11-0.59) K/uL Eos # (Auto) (0-0.5) K/uL Baso # (Auto) (0-0.2) K/uL Sodium (136-145) mmol/L Potassium (3.5-5.1) mmol/L Chloride (98-107) mmol/L Carbon Dioxide (21-32) mmol/L Anion Gap (3-11) BUN (7-18) mg/dl Creatinine (0.6-1.2) mg/dl Est Cr Clr Drug Dosing ml/min Est GFR ( Amer) Est GFR (Non-Af Amer) BUN/Creatinine Ratio (10-20) Glucose (70-99) mg/dl Calcium (8.5-10.1) mg/dl Total Bilirubin (0.2-1) mg/dl AST (15-37) U/L ALT (12-78) U/L Alkaline Phosphatase (45-117) U/L Troponin I (0-0.045) ng/ml Total Protein (6.4-8.2) gm/dl Albumin (3.4-5.0) gm/dl Globulin (2.5-4.0) gm/dl Albumin/Globulin Ratio (0.9-2) Lipase (73-393) U/L Urine Color Dark Yellow Urine Appearance Cloudy A (Clear) Urine pH 8.5 H (4.5-7.5) Ur Specific [place] 1.037 H (1.000-1.030) Urine Protein Negative (Negative) Urine Glucose (UA) 2+ H (Negative) Urine Ketones Negative (Negative) Urine Blood Negative (Negative) Urine Nitrite Negative (Negative) Urine Bilirubin Negative (Negative) Urine Urobilinogen Positive H (Negative) Ur Leukocyte Esterase Negative (Negative) Urine WBC (Auto) 1-5 (0-5) /hpf Urine RBC (Auto) 0-4 (0-4) /hpf U Hyaline Cast (Auto) 5-10 H (0-5) /lpf U Epithel Cells (Auto) >30 H (0-5) /lpf Urine Bacteria (Auto) Negative (Negative) Ur Renal Epithelial Cell Not Reportable Hepatitis C Ab Screen (Neg) Imaging Data Radiologist's Impression: Radiology results as stated below per my review and the radiologist's interpretation: US liver CLINICAL HISTORY: epigastric pain eval for biliary obstruction COMPARISON STUDY: 02/09/2019 FINDINGS: Pancreas is unremarkable. Liver is uniform and 15 cm maximum dimension. Normal vascular flow is present. Gallbladder surgically absent. Common bile duct measures to 1.5 cm. Right kidney is negative for hydronephrosis. IMPRESSION: Moderately distended common bile duct 1.5 cm. This is increased from the 9 mm dimension described previously. Study is otherwise negative post cholecystectomy. The above report was generated using voice recognition software. It may contain grammatical, syntax or spelling errors. Electronically signed by: Devon Cedillo M.D. 06/27/2019 8:[address] abd pelvis IV con only CT DOSE: 304.24 mGy.cm HISTORY: upper abd pain/transaminitis eval for mass TECHNIQUE: Multiaxial CT images of the abdomen and pelvis were performed following the use of intravenous contrast. A dose lowering technique was utilized adhering to the principles of ALARA. COMPARISON STUDY: 06/10/2017 FINDINGS: Lung bases are clear. Prior cholecystectomy. Liver spleen and pancreas are otherwise unremarkable. Mild increase in biliary ductal prominence compared to the prior study. Mild prominence of several loops of small bowel suggesting nonspecific enteritis. Bowel pattern overall is nonobstructive. Bladder is midline. Moderate degenerative changes of the bony structures are noted. IMPRESSION: 1. Moderate nonspecific small bowel enteritis. 2. Slight increase in biliary ductal prominence compared to the prior study. The above report was generated using voice recognition software. It pain may contain grammatical, syntax or spelling errors. Electronically signed by: Devon Cedillo M.D. 06/27/2019 7:39 PM ECG Data Attestation: I personally reviewed and interpreted this ECG as follows: Indication: + abdominal pain Rate (beats per minute): 80 Rhythm: + normal sinus ECG ST segments: no ST elevation ECG Findings: no PACs and no PVCs Blood Pressure Blood Pressure Findings: Low blood pressure Blood Pressure Disposition: elevated BP felt to be situational MDM Narrative I did evaluate the patient as noted above. Patient is presenting with epigastric pain similar to when she had biliary obstruction previously. IV access was established. 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 I did treat her with IV morphine and Zofran. I did order and personally review the patient's 12-lead EKG as described above. She has no acute ischemia on twelve-lead EKG. I I did order a urine analysis. I did order and review the patient's blood work as noted in the electronic medical record. Her white count is not elevated. She is anemic. Her transaminases were elevated but her bilirubin was not. She has mild hypokalemia. I did order a CT of the abdomen and pelvis. I did review the images myself as well as the radiology report as described above. She has enteritis. I did order a liver ultrasound which demonstrated a distended CBD at 1.5 cm. I did discuss the test results with the patient. She was feeling better but her pain is now returning. I did recommend hospitalization for further care and evaluation including likely ERCP. I did discuss the case with the hospitalist and rn case manager hospice. Impression & Plan Abdominal pain, Abnormal LFTs, Bilious emesis, Anemia, Acute hypokalemia Discharge Plan Visit Data *Final* Discharge Date/Time: 06/27/19 22:33 Chief Complaint: Abdominal Pain Stated Complaint: AB PAIN ED Provider: Fabio Peñaloza Discharge Problem: Abdominal pain, Abnormal LFTs, Bilious emesis, Anemia, Acute hypokalemia Patient Disposition: Admitted As Inpatient Discharge Instructions Interventions: ED Discharge Assessment Last Done: 06/27/19 22:33 Discharge Problem: Abdominal pain Qualifiers: Abdominal location: epigastric Qualified Code(s): R10.13 - Epigastric pain Bilious emesis Qualifiers: Nausea presence: with nausea Qualified Code(s): R11.14 - Bilious vomiting Anemia Qualifiers: Anemia type: unspecified type Qualified Code(s): D64.9 - Anemia, unspecified The scribe's documentation has been prepared under my direction and personally reviewed by me in its entirety. I confirm that the note above accurately reflects all work, treatment, procedures, and medical decision making performed by me.
[2019-06-29] MEDS: SODIUM CHLOR 0.45% + 20MEQ KCL 20 MEQ/1,000 ML BAG IV SCH ×4 (00:41→23:35)
[2019-06-29] MEDS ORDERED: Nursing to Pharmacy Communication ONE ×2 (00:47→13:03)
[2019-06-29 03:53] LABS: Hepatitis A Antibody IgM NON-REACTIVE (NON-REACTIVE); Hepatitis B Core Antibody IgM NON-REACTIVE (NON-REACTIVE)
[2019-06-29] MEDS: LEVOTHYROXINE SODIUM 175 MCG TABLET PO SCH (05:57)
[2019-06-29] MEDS: MoRPHine SULFATE 4 MG/ML 1 ML CARP\\VIAL IV PRN ×2 (05:59→10:07)
[2019-06-29] MEDS: ONDANSETRON INJ 2 MG/ML 2 ML VIAL IV PRN ×3 (05:59→21:32)
[2019-06-29 06:59] LABS: Hematocrit (blood only) 30.9 % (37-47); Hemoglobin 10.3 g/dL (12.0-16.0); Immature Granulocytes # (auto) 0.04 K/uL (0.00-0.02); Immature Granulocytes % (auto) 0.4 %; Lymphocytes # (auto) 0.87 K/uL (1.2-3.4); Lymphocytes % (auto) 7.8 %; Mean Corpuscular Hemoglobin 29.6 pg (25-34); Mean Corpuscular Hgb Conc 33.3 g/dL (32-36); Mean Corpuscular Volume 88.8 fL (80-100); Mean Platelet Volume 11.4 fL (7.4-10.4); Monocytes # (auto) 0.51 K/uL (0.11-0.59); Monocytes % (auto) 4.6 %; Neutrophils # (auto) 9.69 K/uL (1.4-6.5); Neutrophils % (auto) 87.2 %; Platelet Count 109 K/uL (130-400); RDW Coefficient of Variation 13.2 % (11.5-14.5); RDW Standard Deviation 42.7 fL (36.4-46.3); Red Blood Count 3.48 M/uL (4.2-5.4); White Blood Count 11.11 K/uL (4.8-10.8)
[2019-06-29 07:33] LABS: Albumin Level 2.7 gm/dl (3.4-5.0); BUN Creatinine Ratio 20.6 (10-20); Bilirubin Direct 0.2 mg/dl (0-0.2); Creatinine Clr Calc Pharmacy 81.2 ml/min; Est GFR (African American) 108.1; Est GFR (Non-African American) 93.3; Potassium 4.6 mmol/L (3.5-5.1)
[2019-06-29 07:35] LABS: Albumin Globulin Ratio 0.8 (0.9-2); Bilirubin,Total 0.6 mg/dl (0.2-1); Globulin 3.3 gm/dl (2.5-4.0)
[2019-06-29] MEDS: PROPRANOLOL HCL LA 80 MG CAPCR PO SCH (08:14)
[2019-06-29] MEDS: ROSUVASTATIN CALCIUM 20 MG TAB PO SCH (08:15)
[2019-06-29] MEDS: CIPROFLOXACIN 400 MG/200 ML BAG IV SCH ×2 (08:15→21:29)
[2019-06-29] MEDS: ASPIRIN 81 MG ECTAB PO SCH (08:15)
[2019-06-29] MEDS: PANTOprazole 40 MG in SYRINGE 0 ML IV SCH ×2 (08:15→21:30)
[2019-06-29] MEDS: NovoLOG INSULIN PUMP SCH ×4 (08:16→22:02)
--- NOTE | 2019-06-29 10:05 | Gastroenterology Progress Note ---
Date of Service June 29, 2019 Assessment & Plan (1) Abnormal LFTs: Ms. Patel is a 64 yr old female who underwent ERCP yesterday with extraction of an impacted stone in the bile duct. Gastritis was also noted on ERCP. Plan: 1. IV BID PPI (cont during hospitalization), change to omeprazole or pantoprazole 40mg BID po. 2. Cipro x total of 7 days. 3. No NSAIDs (except 81mg ASA) for 5 days. 4. Discharge is dependent on pt's further decrease in pain. (2) Dilated bile duct: See above (3) Abdominal pain: See above Supervising Physician Co-Signing Physician Notes I performed a history and physical examination of the patient, including specifically on physical exam - soft, nontender abdomen. I have discussed the patient's management with Lb. Please refer to the nurse practitioner's note for the documented findings and plan of care. Fells better today. AST/ALT trending down. PO PPI Recall GI if needed. Subjective Recall that Ms. Patel is a 4 yr old female who is Post Procedure day #1 for dilated bile duct and elevated LFTs. ERCP yesterday by Dr. Estrada with extension of prior biliary sphincterotomy, balloon extraction of impacted stone. LFTs today are improved: AST 416->115, ALT 389->284. Bili and Alk Phos are normal. Pt says pain is less frequent, less severe (yesterday 10 of 10 pain, today 7 of 10 at the end of the dosing interval). Nausea a few times over night. No vomiting Able to eat a small amt of toast this morning and is taking liquids well po. Review of Systems Review of Systems: ROS: Gen: + felt chilled but not measured temps. Denies weakness, fevers, weight loss Eyes: No eye redness, or pain, no recent vision changes Resp: No SOB, no cough Cardio: No palpitations/irregular beats, no chest pain GI: + continued abdominal pain but somewhat improved. + nausea/vomiting, not passing gas yet. : Denies pain on urination Skin: No jaundice, itching or new rashes Physical Exam Constitutional: WD/WN, vitals as above Eyes: PERRL, conjunctivae normal, anicteric sclerae ENMT: external ear and nose normal, oropharynx normal Neck: trachea midline, no thyromegaly Respiratory: normal respiratory effort, lungs clear to auscultation Cardiovascular: RRR, no murmur, no edema Gastrointestinal (Abdomen): Inspection/Auscultation: abdomen normal to inspection and normal bowel sounds Percussion/Palpation: + abdomen tender (Non tender with gentle touch; tender with deep pal in upper abd) and abdomen soft; no guarding Skin: no rashes, warm and dry Neurologic: PERRL, EOMI, accommodation nl, no face palsy, no dysarthria Psychiatric: A+Ox3, euthymic affect Lymphatic: no cervical or axillary lymphadenopathy Results & Data Vital Signs (Past 12 Hours) Vital Signs Temp Pulse Resp BP BP Pulse Ox 06/29/19 07:35 37.2 C 72 98 H 126/74 98 06/29/19 00:13 36.9 C 70 20 119/70 95 Laboratory Results WBC 11.11, Hb 10.3, Hct 30.9 T Bili 1.5, AST 115, AlT 284, Alk Phos 97 Lipase yesterday 69 Diagnostic Findings ERCP 05/27: - The major papilla was located entirely within a diverticulum. Benign biliary papillary stenosis noted. - The entire main bile duct was markedly dilated. Choledocholithiasis was found. Complete removal was accomplished by biliary sphincterotomy, sphincteroplasty and balloon extraction. Medications Administered Receiving Cipro IV PPI IV BID (1) Abdominal pain Abdominal location: epigastric Qualified Code(s): R10.13 - Epigastric pain
--- NOTE | 2019-06-29 11:25 | Hospitalist Progress Note ---
Date of Service June 29, 2019 Assessment & Plan (1) Dilated bile duct: 64 yo F with H cholecystectomy (1995), remote bile duct procedure due to obstruction (1997), HLD, HTN, DM presents wit clinic with epigastric to mid quadrant pain and bilious emesis. Abdominal pain -Liver US: Moderately distended common bile duct 1.5 cm -Abd/Pelvis CT: Moderate nonspecific small bowel enteritis. Slight increase in biliary ductal prominence - Patient has history of bile duct obstruction following cholecystectomy -appreciate GI consult -likely suggestive of choledocolithisis or other obstruction of the bile duct -normal WBC and no fevers means likely not infection related -06/29 ERCP: papillary stenosis, sludge removed. Sphincterotomy and balloon dilation -06/29 EGD: Normal esophagus. Gastritis. Normal duodenal bulb and second portion of the duodenum. - Cont proton pump inhibitor IV BID , will switch to PO BID tomorrow for 2 months -No NSAIDs (except 81mg ASA) for 5 days -Cipro x total of 7 days, end 07/05 -Pain control with PO Oxycodone. Once pain level stable, pt can be d/c -N/V: Prn Zofran -Hepatitis Panel neg -LFT's downtrending: AST 416->115, ALT 389->284. Bili and Alk Phos are normal Diabetes mellitus -Patient has insulin pump Hyperlipidemia -Continue rosuvastatin. HTN -holding Lisinopril 2/2 low pressures FEN/GI: HH Diet DVT prophylaxis: SCDs Full Code Dispo: Med Surg Supervising Physician Co-Signing Physician Notes I saw the patient concurrent with the resident physician and agree with the impression and plan as noted above. Patient discussed the case with the gastroenterology team. Upon examination, the patient tells me that her pain is much less severe than it was yesterday. She had some mild nausea overnight but no reports of emesis. Hemoglobin 10.3, WBC 11.11. AST 115, ALT 234 -both downtrending compared to yesterday. Impression Choledocholithiasis, status post ERCP elevated liver transaminases Diabetic on insulin pump Plan PPI BID (concert to PO upon discharge) Cipro x 7 days No NSAIDs for 5 days Advance diet as tolerated Subjective 64 yo F found in bed this AM in NAD. No reported overnight events. Notes pain improved from yesterday, but still present 01/31. N/V improved. LFTs today are improved. Tolerating PO intake. No other acute concerns or complaints. Review of Systems Review of Systems: All systems reviewed & are unremarkable except as noted in HPI & below Physical Exam Constitutional: WD/WN, vitals as above Eyes: PERRL, conjunctivae normal, anicteric sclerae ENMT: external ear and nose normal, oropharynx normal Respiratory: normal respiratory effort, lungs clear to auscultation Cardiovascular: RRR, no murmur, no edema Gastrointestinal (Abdomen): ttp epigastric Skin: no rashes, warm and dry Psychiatric: A+Ox3, euthymic affect Results & Data Vital Signs (Past 12 Hours) Vital Signs Temp Pulse Resp BP BP Pulse Ox 06/29/19 07:35 37.2 C 72 98 H 126/74 98 06/29/19 00:13 36.9 C 70 20 119/70 95 Laboratory Results Laboratory Results - last 24 hr 06/28/19 06/28/19 06/28/19 11:26 11:36 17:03 WBC RBC Hgb Hct MCV MCH MCHC RDW Std Deviation RDW Coeff of Kandy Plt Count MPV Immature Gran % (Auto) Neut % (Auto) Lymph % (Auto) Hinds % (Auto) Eos % (Auto) Baso % (Auto) Immature Gran # (Auto) Neut # (Auto) Lymph # (Auto) Hinds # (Auto) Eos # (Auto) Baso # (Auto) Sodium Potassium Chloride Carbon Dioxide Anion Gap BUN Creatinine Est Cr Clr Drug Dosing Est GFR ( Amer) Est GFR (Non-Af Amer) BUN/Creatinine Ratio Glucose POC Glucose 128 H 119 H Calcium Total Bilirubin Direct Bilirubin AST ALT Alkaline Phosphatase Total Protein Albumin Globulin Albumin/Globulin Ratio Hepatitis A IgM Ab NON-REACTIVE Hep B Core IgM Ab NON-REACTIVE 06/28/19 06/29/19 06/29/19 20:35 06:30 06:30 WBC 11.11 H RBC 3.48 L Hgb 10.3 L Hct 30.9 L MCV 88.8 MCH 29.6 MCHC 33.3 RDW Std Deviation 42.7 RDW Coeff of Kandy 13.2 Plt Count 109 L MPV 11.4 H Immature Gran % (Auto) 0.4 Neut % (Auto) 87.2 Lymph % (Auto) 7.8 Hinds % (Auto) 4.6 Eos % (Auto) 0.0 Baso % (Auto) 0.0 Immature Gran # (Auto) 0.04 H Neut # (Auto) 9.69 H Lymph # (Auto) 0.87 L Hinds # (Auto) 0.51 Eos # (Auto) 0.00 Baso # (Auto) 0.00 Sodium 137 Potassium 4.6 D Chloride 108 H Carbon Dioxide 25 Anion Gap 4.0 BUN 14 Creatinine 0.69 Est Cr Clr Drug Dosing 81.2 Est GFR ( Amer) 108.1 Est GFR (Non-Af Amer) 93.3 BUN/Creatinine Ratio 20.6 H Glucose 202 H POC Glucose 194 H Calcium 9.0 Total Bilirubin 0.6 Direct Bilirubin 0.2 AST 115 H ALT 234 H Alkaline Phosphatase 97 Total Protein 6.0 L Albumin 2.7 L Globulin 3.3 Albumin/Globulin Ratio 0.8 L Hepatitis A IgM Ab Hep B Core IgM Ab 06/29/19 07:42 WBC RBC Hgb Hct MCV MCH MCHC RDW Std Deviation RDW Coeff of Kandy Plt Count MPV Immature Gran % (Auto) Neut % (Auto) Lymph % (Auto) Hinds % (Auto) Eos % (Auto) Baso % (Auto) Immature Gran # (Auto) Neut # (Auto) Lymph # (Auto) Hinds # (Auto) Eos # (Auto) Baso # (Auto) Sodium Potassium Chloride Carbon Dioxide Anion Gap BUN Creatinine Est Cr Clr Drug Dosing Est GFR ( Amer) Est GFR (Non-Af Amer) BUN/Creatinine Ratio Glucose POC Glucose 208 H Calcium Total Bilirubin Direct Bilirubin AST ALT Alkaline Phosphatase Total Protein Albumin Globulin Albumin/Globulin Ratio Hepatitis A IgM Ab Hep B Core IgM Ab Medications Administered Current Inpatient Medications Albuterol (Ventolin 0.083% 2.5mg/3ml) 2.5 mg NEB Q4H PRN PRN Reason: Shortness Of Breath Or Wheezing Stop: 07/27/19 22:05 Aspirin (Ecotrin Ectab) 81 mg PO DAILY [facility] Stop: 07/28/19 08:59 Last Admin: 06/29/19 08:15 Dose: 81 mg Documented by: Dextrose (Dextrose 50%) 25 - 50 ml IV UD PRN; Protocol PRN Reason: Hypoglycemia Protocol Stop: 07/27/19 22:43 Glucagon (Glucagen) 1 mg SQ UD PRN; Protocol PRN Reason: Hypoglycemia Protocol Stop: 12/04/19 22:43 Glucose (Glucose 40%) 15 - 30 gm PO UD PRN; Protocol PRN Reason: Hypoglycemia Protocol Stop: 07/27/19 22:43 Glucose (Dex4 Glucose) 4 - 8 tabs PO UD PRN; Protocol PRN Reason: Hypoglycemia Protocol Stop: 07/27/19 22:43 Potassium Chloride/Sodium Chloride (1/2 Nss + 20meq Kcl 1000ml) 20 meq in 1,000 mls @ 125 mls/hr IV .Q8H [facility] Stop: 07/27/19 22:59 Last Admin: 06/29/19 08:15 Dose: 125 mls/hr Documented by: Ciprofloxacin (Cipro) 400 mg in 200 mls @ 100 mls/hr IV Q12 [facility]; Protocol Stop: 07/08/19 10:44 Last Infusion: 06/29/19 10:31 Dose: Infused Documented by: Pantoprazole Sodium 40 mg/ (Syringe) 10 mls @ 5 mls/min IV BID@0900,2100 [facility] Stop: 07/28/19 17:59 Last Admin: 06/29/19 08:15 Dose: 5 mls/min Documented by: Insulin Aspart (Novolog Insulin Pump) 1 ea N/A ACHS [facility]; Protocol Stop: 07/28/19 07:29 Last Admin: 06/29/19 08:16 Dose: 1 ea Documented by: Insulin Aspart (Novolog Aspart) 0 units SC PRN PRN PRN Reason: Pump Refill Stop: 07/28/19 00:59 Ioversol (Optiray 320 100ml) 93 ml IV ONCE PRN PRN Reason: Interaction Checking Stop: 07/01/19 19:23 Last Admin: 06/27/19 19:25 Dose: 93 ml Documented by: Ketorolac Tromethamine (Toradol) 15 mg IV Q6H PRN PRN Reason: Mild pain/fever Stop: 07/02/19 22:05 Last Admin: 06/28/19 07:48 Dose: 15 mg Documented by: [facility]: 07/28/19 06:29 Last Admin: 06/29/19 05:57 Dose: 175 mcg Documented by: Lisinopril (Zestril) 5 mg PO DAILY [facility] Stop: 07/28/19 08:59 Last Admin: 06/28/19 11:26 Dose: Not Given Documented by: Lorazepam (Ativan) 0.5 mg PO Q6H PRN PRN Reason: Anxiety Stop: 07/27/19 22:43 Miscellaneous (Carbohydrates For Hypoglycemia) 15 - 30 gm PO UD PRN PRN Reason: Hypoglycemia Protocol Stop: 07/27/19 22:43 Montelukast Sodium (Singulair) 10 mg PO HS [facility] Stop: 07/28/19 20:59 Last Admin: 06/28/19 21:10 Dose: 10 mg Documented by: Morphine Sulfate (Morphine Sulfate) 2 mg IV Q3H PRN PRN Reason: Moderate Pain Stop: 07/11/19 22:05 Last Admin: 06/27/19 23:21 Dose: 2 mg Documented by: Morphine Sulfate (Morphine Sulfate) 4 mg IV Q4H PRN PRN Reason: Severe Pain Stop: 07/11/19 22:05 Last Admin: 06/29/19 10:07 Dose: 4 mg Documented by: Ondansetron HCl (Zofran) 4 mg IV Q6H PRN PRN Reason: nausea or vomiting Stop: 07/27/19 22:43 Last Admin: 06/29/19 05:59 Dose: 4 mg Documented by: Propranolol HCl (Inderal La) 80 mg PO DAILY [facility] Stop: 07/28/19 08:59 Last Admin: 06/29/19 08:14 Dose: 80 mg Documented by: Ranitidine HCl (Zantac) 150 mg PO HS [facility] Stop: 07/28/19 20:59 Last Admin: 06/28/19 21:10 Dose: 150 mg Documented by: Ropinirole HCl (Requip) 0.5 mg PO HS [facility] Stop: 07/28/19 20:59 Last Admin: 06/28/19 21:10 Dose: 0.5 mg Documented by: Rosuvastatin Calcium (Crestor) 40 mg PO DAILY [facility] Stop: 07/28/19 08:59 Last Admin: 06/29/19 08:15 Dose: 40 mg Documented by: Resident Activity Tracking Resident Involvement: Resident Care Provided Care Provided: Adult Hospital Medicine
[2019-06-29] MEDS ORDERED: OXYCODONE HCL SOLN 5 MG/5 ML UDC PO PRN (11:29)
[2019-06-29] MEDS ORDERED: OXYCODONE HCL IR 5 MG TAB (IMMEDIATE RELEASE) PO PRN (13:05)
[2019-06-29] MEDS: OXYCODONE HCL IR 5 MG TAB (IMMEDIATE RELEASE) PO PRN ×3 (13:15→23:56)
[2019-06-29] MEDS: ROPINIROLE HCL 0.25 MG TABLET PO SCH (21:29)
[2019-06-29] MEDS: MONTELUKAST SODIUM 10 MG TABLET PO SCH (21:29)
[2019-06-30] MEDS: LEVOTHYROXINE SODIUM 175 MCG TABLET PO SCH (05:45)
[2019-06-30 06:03] LABS: Basophils # (auto) 0.01 K/uL (0-0.2); Basophils % (auto) 0.1 %; Hematocrit (blood only) 30.8 % (37-47); Hemoglobin 10.2 g/dL (12.0-16.0); Immature Granulocytes # (auto) 0.02 K/uL (0.00-0.02); Immature Granulocytes % (auto) 0.2 %; Lymphocytes # (auto) 1.36 K/uL (1.2-3.4); Lymphocytes % (auto) 15.7 %; Mean Corpuscular Hemoglobin 29.9 pg (25-34); Mean Corpuscular Hgb Conc 33.1 g/dL (32-36); Mean Corpuscular Volume 90.3 fL (80-100); Mean Platelet Volume 11.2 fL (7.4-10.4); Monocytes # (auto) 0.55 K/uL (0.11-0.59); Monocytes % (auto) 6.3 %; Neutrophils # (auto) 6.75 K/uL (1.4-6.5); Neutrophils % (auto) 77.7 %; Platelet Count 112 K/uL (130-400); RDW Coefficient of Variation 13.2 % (11.5-14.5); RDW Standard Deviation 43.8 fL (36.4-46.3); Red Blood Count 3.41 M/uL (4.2-5.4); White Blood Count 8.69 K/uL (4.8-10.8)
[2019-06-30 06:25] LABS: BUN Creatinine Ratio 12.6 (10-20); Calcium 9.1 mg/dl (8.5-10.1); Creatinine Clr Calc Pharmacy 65.2 ml/min; Est GFR (African American) 83.9; Est GFR (Non-African American) 72.4; Potassium 4.1 mmol/L (3.5-5.1)
[2019-06-30] MEDS: SODIUM CHLOR 0.45% + 20MEQ KCL 20 MEQ/1,000 ML BAG IV SCH ×2 (08:24→17:04)
[2019-06-30] MEDS: ROSUVASTATIN CALCIUM 20 MG TAB PO SCH (08:36)
[2019-06-30] MEDS: CIPROFLOXACIN 500 MG TAB PO SCH ×2 (08:36→20:22)
[2019-06-30] MEDS: PANTOprazole 40 MG TAB PO SCH ×2 (08:37→20:22)
[2019-06-30] MEDS: PROPRANOLOL HCL LA 80 MG CAPCR PO SCH (08:37)
[2019-06-30] MEDS: ASPIRIN 81 MG ECTAB PO SCH (08:37)
[2019-06-30] MEDS: NovoLOG INSULIN PUMP SCH ×4 (08:41→20:26)
[2019-06-30] MEDS: OXYCODONE HCL IR 5 MG TAB (IMMEDIATE RELEASE) PO PRN ×4 (09:09→21:42)
[2019-06-30 10:18] LABS: Albumin Level 2.9 gm/dl (3.4-5.0); Bilirubin Direct 0.1 mg/dl (0-0.2); Bilirubin,Total 0.5 mg/dl (0.2-1); Total Protein 6.3 gm/dl (6.4-8.2)
--- NOTE | 2019-06-30 16:05 | Hospitalist Progress Note ---
Date of Service June 30, 2019 Assessment & Plan (1) Dilated bile duct: 64 yo F with H cholecystectomy (1995), remote bile duct procedure due to obstruction (1997), HLD, HTN, DM presents with epigastric to mid quadrant pain and bilious emesis. Abdominal pain -Liver US: Moderately distended common bile duct 1.5 cm -Abd/Pelvis CT: Moderate nonspecific small bowel enteritis. Slight increase in biliary ductal prominence - Patient has history of bile duct obstruction following cholecystectomy -appreciate GI consult -likely suggestive of choledocolithisis or other obstruction of the bile duct -normal WBC and no fevers means likely not infection related -06/29 ERCP: papillary stenosis, sludge removed. Sphincterotomy and balloon dilation -06/29 EGD: Normal esophagus. Gastritis. Normal duodenal bulb and second portion of the duodenum. - Cont proton pump inhibitor PO BID for 2 months -No NSAIDs (except 81mg ASA) for 5 days -Cont PO Cipro x total of 7 days, end 07/05. Cover for cholangitis -Pain control with PO Oxycodone. Once pain level stable, pt can be d/c -N/V: Prn Zofran -Hepatitis Panel neg -LFT's downtrending. Bili and Alk Phos are normal Diabetes mellitus -Patient has insulin pump Hyperlipidemia -Continue rosuvastatin. HTN -holding Lisinopril 2/2 low pressures FEN/GI: HH Diet DVT prophylaxis: Lovenox, SCDs Full Code Dispo: Med Surg. Anticipate d/c tomorrow Supervising Physician Co-Signing Physician Notes I saw the patient with the resident physician and confirmed martinez portions of the history and physical exam. On our visit earlier this afternoon, the patient reports feeling somewhat better compared to this morning. She was able to tolerate about 50% of her lunch, but then stopped when she had some epigastric discomfort. Currently at rest she denies any discomfort. She is afebrile White count is normalized at 8.69. AST has normalized at 37; ALT continues to trend down and is now at 169. Alkaline phosphatase is normal at 95. Impression Choledocholithiasis, S/P biliary sphincterotomy, sphincteroplasty and balloon extraction. Abdominal pain improving If is able to tolerate p.o. should be ready for discharge in a.m. Will need ciprofloxacin for total 7 days Will need proton pump inhibitor twice daily until reevaluated as an outpatient No NSAIDs for 1 week Subjective 64 yo F found in bed this AM in NAD. No reported overnight events. This AM pt in tears over pain 9/10. Mildly improved with oxy. Later in afternoon, pt states pain gone. N/V improved. LFTs today are improved. Tolerating PO intake. No other acute concerns or complaints. Review of Systems Review of Systems: All systems reviewed & are unremarkable except as noted in HPI & below Physical Exam Constitutional: WD/WN, vitals as above Eyes: PERRL, conjunctivae normal, anicteric sclerae ENMT: external ear and nose normal, oropharynx normal Respiratory: normal respiratory effort, lungs clear to auscultation Cardiovascular: RRR, no murmur, no edema Gastrointestinal (Abdomen): tender RUQ, lower abd Skin: no rashes, warm and dry Psychiatric: A+Ox3, euthymic affect Results & Data Vital Signs (Past 12 Hours) Vital Signs Temp Pulse Pulse Resp BP BP Pulse Ox 06/30/19 15:09 37.1 C 70 18 133/82 96 06/30/19 11:45 36.8 C 69 14 123/78 95 06/30/19 07:55 37.2 C 64 14 129/79 97 06/30/19 04:42 71 115/73 Laboratory Results Laboratory Results - last 24 hr 06/29/19 06/29/19 06/30/19 16:37 20:15 05:45 WBC 8.69 RBC 3.41 L Hgb 10.2 L Hct 30.8 L MCV 90.3 MCH 29.9 MCHC 33.1 RDW Std Deviation 43.8 RDW Coeff of Kandy 13.2 Plt Count 112 L MPV 11.2 H Immature Gran % (Auto) 0.2 Neut % (Auto) 77.7 Lymph % (Auto) 15.7 Lares % (Auto) 6.3 Eos % (Auto) 0.0 Baso % (Auto) 0.1 Immature Gran # (Auto) 0.02 Neut # (Auto) 6.75 H Lymph # (Auto) 1.36 Lares # (Auto) 0.55 Eos # (Auto) 0.00 Baso # (Auto) 0.01 Sodium Potassium Chloride Carbon Dioxide Anion Gap BUN Creatinine Est Cr Clr Drug Dosing Est GFR ( Amer) Est GFR (Non-Af Amer) BUN/Creatinine Ratio Glucose POC Glucose 294 H 246 H Calcium Total Bilirubin Direct Bilirubin AST ALT Alkaline Phosphatase Total Protein Albumin 06/30/19 06/30/19 06/30/19 05:45 05:45 07:40 WBC RBC Hgb Hct MCV MCH MCHC RDW Std Deviation RDW Coeff of Kandy Plt Count MPV Immature Gran % (Auto) Neut % (Auto) Lymph % (Auto) Lares % (Auto) Eos % (Auto) Baso % (Auto) Immature Gran # (Auto) Neut # (Auto) Lymph # (Auto) Lares # (Auto) Eos # (Auto) Baso # (Auto) Sodium 137 Potassium 4.1 Chloride 107 Carbon Dioxide 27 Anion Gap 3.0 BUN 11 Creatinine 0.86 Est Cr Clr Drug Dosing 65.2 Est GFR ( Amer) 83.9 Est GFR (Non-Af Amer) 72.4 BUN/Creatinine Ratio 12.6 Glucose 199 H POC Glucose 197 H Calcium 9.1 Total Bilirubin 0.5 Direct Bilirubin 0.1 AST 37 ALT 169 H Alkaline Phosphatase 95 Total Protein 6.3 L Albumin 2.9 L 06/30/19 11:26 WBC RBC Hgb Hct MCV MCH MCHC RDW Std Deviation RDW Coeff of Kandy Plt Count MPV Immature Gran % (Auto) Neut % (Auto) Lymph % (Auto) Lares % (Auto) Eos % (Auto) Baso % (Auto) Immature Gran # (Auto) Neut # (Auto) Lymph # (Auto) Lares # (Auto) Eos # (Auto) Baso # (Auto) Sodium Potassium Chloride Carbon Dioxide Anion Gap BUN Creatinine Est Cr Clr Drug Dosing Est GFR ( Amer) Est GFR (Non-Af Amer) BUN/Creatinine Ratio Glucose POC Glucose 213 H Calcium Total Bilirubin Direct Bilirubin AST ALT Alkaline Phosphatase Total Protein Albumin Medications Administered Current Inpatient Medications Albuterol (Ventolin 0.083% 2.5mg/3ml) 2.5 mg NEB Q4H PRN PRN Reason: Shortness Of Breath Or Wheezing Stop: 07/27/19 22:05 Aspirin (Ecotrin Ectab) 81 mg PO DAILY [facility] Stop: 07/28/19 08:59 Last Admin: 06/30/19 08:37 Dose: 81 mg Documented by: Ciprofloxacin (Cipro) 500 mg PO BID [facility] Stop: 07/01/19 08:59 Last Admin: 06/30/19 08:36 Dose: 500 mg Documented by: Dextrose (Dextrose 50%) 25 - 50 ml IV UD PRN; Protocol PRN Reason: Hypoglycemia Protocol Stop: 07/27/19 22:43 Glucagon (Glucagen) 1 mg SQ UD PRN; Protocol PRN Reason: Hypoglycemia Protocol Stop: 07/27/19 22:43 Glucose (Glucose 40%) 15 - 30 gm PO UD PRN; Protocol PRN Reason: Hypoglycemia Protocol Stop: 07/27/19 22:43 Glucose (Dex4 Glucose) 4 - 8 tabs PO UD PRN; Protocol PRN Reason: Hypoglycemia Protocol Stop: 07/27/19 22:43 Potassium Chloride/Sodium Chloride (1/2 Nss + 20meq Kcl 1000ml) 20 meq in 1,000 mls @ 125 mls/hr IV .Q8H [facility] Stop: 07/27/19 22:59 Last Admin: 06/30/19 08:24 Dose: 125 mls/hr Documented by: Insulin Aspart (Novolog Insulin Pump) 1 ea N/A ACHS [facility]; Protocol Stop: 07/28/19 07:29 Last Admin: 06/30/19 12:35 Dose: 1 ea Documented by: Insulin Aspart (Novolog Aspart) 0 units SC PRN PRN PRN Reason: Pump Refill Stop: 07/28/19 00:59 Ioversol (Optiray 320 100ml) 93 ml IV ONCE PRN PRN Reason: Interaction Checking Stop: 07/01/19 19:23 Last Admin: 06/27/19 19:25 Dose: 93 ml Documented by: Ketorolac Tromethamine (Toradol) 15 mg IV Q6H PRN PRN Reason: Mild pain/fever Stop: 07/02/19 22:05 Last Admin: 06/28/19 07:48 Dose: 15 mg Documented by: Levothyroxine Sodium (Synthroid) 175 mcg PO DAILYBB [facility] Stop: 07/28/19 06:29 Last Admin: 06/30/19 05:45 Dose: 175 mcg Documented by: Lisinopril (Zestril) 5 mg PO DAILY [facility] Stop: 07/28/19 08:59 Last Admin: 06/28/19 11:26 Dose: Not Given Documented by: Lorazepam (Ativan) 0.5 mg PO Q6H PRN PRN Reason: Anxiety Stop: 07/27/19 22:43 Miscellaneous (Carbohydrates For Hypoglycemia) 15 - 30 gm PO UD PRN PRN Reason: Hypoglycemia Protocol Stop: 07/27/19 22:43 Montelukast Sodium (Singulair) 10 mg PO HS [facility] Stop: 07/28/19 20:59 Last Admin: 06/29/19 21:29 Dose: 10 mg Documented by: Morphine Sulfate (Morphine Sulfate) 2 mg IV Q3H PRN PRN Reason: Moderate Pain Stop: 07/11/19 22:05 Last Admin: 06/27/19 23:21 Dose: 2 mg Documented by: Morphine Sulfate (Morphine Sulfate) 4 mg IV Q4H PRN PRN Reason: Severe Pain Stop: 07/11/19 22:05 Last Admin: 06/29/19 10:07 Dose: 4 mg Documented by: Ondansetron HCl (Zofran) 4 mg IV Q6H PRN PRN Reason: nausea or vomiting Stop: 07/27/19 22:43 Last Admin: 06/29/19 21:32 Dose: 4 mg Documented by: Oxycodone HCl (Roxicodone Immediate Rel) 5 - 10 mg PO Q4H PRN; Protocol PRN Reason: Pain Stop: 07/13/19 13:04 Last Admin: 06/30/19 12:57 Dose: 10 mg Documented by: Pantoprazole Sodium (Protonix) 40 mg PO BID [facility] Stop: 07/30/19 08:59 Last Admin: 06/30/19 08:37 Dose: 40 mg Documented by: Propranolol HCl (Inderal La) 80 mg PO DAILY [facility] Stop: 07/28/19 08:59 Last Admin: 06/30/19 08:37 Dose: 80 mg Documented by: Ranitidine HCl (Zantac) 150 mg PO HS [facility] Stop: 07/28/19 20:59 Last Admin: 06/29/19 21:29 Dose: 150 mg Documented by: Ropinirole HCl (Requip) 0.5 mg PO HS [facility] Stop: 07/28/19 20:59 Last Admin: 06/29/19 21:29 Dose: 0.5 mg Documented by: Rosuvastatin Calcium (Crestor) 40 mg PO DAILY [facility] Stop: 07/28/19 08:59 Last Admin: 06/30/19 08:36 Dose: 40 mg Documented by: Resident Activity Tracking Resident Involvement: Resident Care Provided Care Provided: Adult Hospital Medicine
[2019-06-30] MEDS: ENOXAPARIN INJ 40 MG/0.4 ML SYR SQ SCH (17:05)
[2019-06-30] MEDS: MONTELUKAST SODIUM 10 MG TABLET PO SCH (20:23)
[2019-06-30] MEDS: ROPINIROLE HCL 0.25 MG TABLET PO SCH (20:23)
[2019-06-30] MEDS: ONDANSETRON INJ 2 MG/ML 2 ML VIAL IV PRN (20:33)
[2019-07-01] MEDS: SODIUM CHLOR 0.45% + 20MEQ KCL 20 MEQ/1,000 ML BAG IV SCH ×2 (01:48→09:39)
[2019-07-01 06:12] LABS: Basophils # (auto) 0.02 K/uL (0-0.2); Basophils % (auto) 0.3 %; Hematocrit (blood only) 34.4 % (37-47); Hemoglobin 11.2 g/dL (12.0-16.0); Immature Granulocytes # (auto) 0.01 K/uL (0.00-0.02); Immature Granulocytes % (auto) 0.1 %; Lymphocytes # (auto) 1.31 K/uL (1.2-3.4); Lymphocytes % (auto) 18.7 %; Mean Corpuscular Hemoglobin 29.1 pg (25-34); Mean Corpuscular Hgb Conc 32.6 g/dL (32-36); Mean Corpuscular Volume 89.4 fL (80-100); Mean Platelet Volume 11.6 fL (7.4-10.4); Monocytes # (auto) 0.53 K/uL (0.11-0.59); Monocytes % (auto) 7.5 %; Neutrophils # (auto) 5.15 K/uL (1.4-6.5); Neutrophils % (auto) 73.4 %; Platelet Count 149 K/uL (130-400); RDW Coefficient of Variation 13.1 % (11.5-14.5); RDW Standard Deviation 42.7 fL (36.4-46.3); Red Blood Count 3.85 M/uL (4.2-5.4); White Blood Count 7.02 K/uL (4.8-10.8)
[2019-07-01] MEDS: LEVOTHYROXINE SODIUM 175 MCG TABLET PO SCH (06:25)
[2019-07-01] MEDS: ONDANSETRON INJ 2 MG/ML 2 ML VIAL IV PRN (06:30)
[2019-07-01] MEDS: OXYCODONE HCL IR 5 MG TAB (IMMEDIATE RELEASE) PO PRN ×2 (06:32→12:11)
[2019-07-01 06:50] LABS: Albumin Level 2.9 gm/dl (3.4-5.0); BUN Creatinine Ratio 10.6 (10-20); Calcium 9.4 mg/dl (8.5-10.1); Creatinine Clr Calc Pharmacy 66.7 ml/min; Est GFR (African American) 86.3; Est GFR (Non-African American) 74.5; Potassium 4.2 mmol/L (3.5-5.1)
[2019-07-01 06:52] LABS: Albumin Globulin Ratio 0.8 (0.9-2); Bilirubin,Total 0.5 mg/dl (0.2-1); Globulin 3.7 gm/dl (2.5-4.0); Total Protein 6.6 gm/dl (6.4-8.2)
[2019-07-01] MEDS: ROSUVASTATIN CALCIUM 20 MG TAB PO SCH (08:34)
[2019-07-01] MEDS: ASPIRIN 81 MG ECTAB PO SCH (08:34)
[2019-07-01] MEDS: PANTOprazole 40 MG TAB PO SCH (08:34)
[2019-07-01] MEDS: PROPRANOLOL HCL LA 80 MG CAPCR PO SCH (08:34)
[2019-07-01] MEDS: ENOXAPARIN INJ 40 MG/0.4 ML SYR SQ SCH (08:35)
[2019-07-01] MEDS: NovoLOG INSULIN PUMP SCH ×2 (09:25→13:32)
--- NOTE | 2019-07-01 12:23 | Discharge Summary ---
Date of Service July 01, 2019 Admission HPI Per Admitting Provider 64 y/o female presented to the ED with acute onset of epigastric to mid quadrant pain 10/10 with associated nausea. Patient had a bilious emesis in the ED. She reports having had a remote bile duct procedure due to obstruction following a cholecystectomy. She tells me that this feels similar. No F/C, cough, chest pain, SOB, or diarrhea. Principal Diagnosis choledocolithiasis Discharge Exam Constitutional WD/WN, vitals as above Eyes PERRL, conjunctivae normal, anicteric sclerae ENMT external ear and nose normal, oropharynx normal Respiratory normal respiratory effort, lungs clear to auscultation Cardiovascular RRR, no murmur, no edema Gastrointestinal (Abdomen) mild ttp RUQ/RLQ no rebound, guarding Skin no rashes, warm and dry Psychiatric A+Ox3, euthymic affect Discharge Data Allergies Allergy/AdvReac Type Severity Reaction Status Date / Time Penicillins Allergy Mild Unknown Verified 06/28/19 10:56 Sulfa (Sulfonamide Allergy Unknown HIVES Verified 10/26/18 11:37 Antibiotics) insulin glargine AdvReac Severe Vomiting Verified 06/28/19 10:57 [From [employer] U-300 Insulin] Consultations 06/27/19 21:17 ED Decision to Admit Stat 06/27/19 22:44 Consult Gastroenterology Routine Procedures Performed Operation Date: 06/28/19 07:00 Actual Procedures p Endoscopic Retrograde Cholangiopancreatogram, sphincterotomy, (Not Applicable) - Mariano Estrada MD s esophagogastroduodenoscopy, balloon dilation(Not Applicable) - Mariano bruner MD Ordered Studies 06/27/19 17:41 US liver Stat 06/27/19 19:10 CT abd pelvis IV con only Stat 06/28/19 15:15 [place] ERCP biliary ductal Routine Hospital Course (1) Dilated bile duct: 64 yo F with H cholecystectomy (1995), remote bile duct procedure due to obstruction (1997), HLD, HTN, DM presents with epigastric to mid quadrant pain and bilious emesis. The following is the medical management during her stay here: Abdominal pain -Liver US: Moderately distended common bile duct 1.5 cm -Abd/Pelvis CT: Moderate nonspecific small bowel enteritis. Slight increase in biliary ductal prominence - Patient has history of bile duct obstruction following cholecystectomy -GI was consulted and thought this was likely suggestive of choledocolithisis or other obstruction of the bile duct -normal WBC and no fevers means likely not infection related -06/29 ERCP: papillary stenosis, sludge removed. Sphincterotomy and balloon dilation -06/29 EGD: Normal esophagus. Gastritis. Normal duodenal bulb and second portion of the duodenum. - Cont proton pump inhibitor PO BID for 2 months -No NSAIDs (except 81mg ASA) for 5 days -Cont PO Cipro x total of 7 days, end 07/05. Cover for cholangitis -Pain control with PO 10 mg Oxycodone. Script given for 12 tabs to pt -N/V: Prn Zofran -Hepatitis Panel neg -LFT's downtrending. Bili and Alk Phos are normal at time of d/c Diabetes mellitus -Patient has insulin pump Hyperlipidemia -Continue rosuvastatin. HTN -held Lisinopril 2/2 low pressures DVT prophylaxis: Lovenox, SCDs. At time of d/c, pt had no other acute concerns or complaints. Discharge Plan Discharge Items Patient Disposition: Home - Self-Care Reason For Visit: ABD. PAIN, ELEVATED LFTS Discharge Diagnosis: choledocolithiasis Activity: Per Instructions section Non-emergency contact: Primary Care Provider Call non-emergency contact if: you have any medication questions, your symptoms worsen, your pain is not controlled and your temperature is above 101.5 Follow-up/Referrals: Dr. Mariano Estrada [Other] (Please, follow up at [facility] with Dr. Mariano Estrada. *The office is located in the [facility] at [address] in [place]. If you have any questions, call the office at [phone].) Yaz Pantoja CRNP [Primary Care Provider] - 07/06/19 10:00 am (Please, follow up with Yaz BROOKS on ThursdayJuly 06 at 10:00 am. *If you need to change this appointment, call the office at [phone].) Diet: Heart Healthy Add Attending Provider Instructions: You were admitted for concerns of abdominal pain. We got imaging (ERCP), which showed a stone in your duct and some biliary sludge, which was all cleaned up. Please follow the below instructions on discharge: -You will continue antibiotic cipro until 07/05 -You will continue antacid medication pantoprazole for 2 months -You will be given a script for pain medication oxycodone. Please only take for excruciating pain (>7/10). If you need additional medication/refill, please address with your PCP at your appt next week. -you will continue zofran as needed for any nausea -if you have similar excruciating pain that brought you into the ER initially, please come back into ER -follow up with your PCP next week at date outlined above -follow up with GI appt on 07/06 at 10AM Pending Studies at Discharge: No Stand-Alone Forms: Call Back Authorization, My [facility] [place] [employer], Work/S chool Release (Inpt), Smoking Cessation Medications and DC Order Prescriptions: New ciprofloxacin HCl [Cipro] 500 mg tablet 500 mg PO BID Qty: 8 RF: 0 pantoprazole 40 mg tablet,delayed release (DR/EC) 40 mg PO BID 60 Days Qty: 120 RF: 0 oxycodone 5 mg Tablet 5 mg PO Q4H PRN (Reason: pain) Qty: 20 RF: 0 ondansetron HCl [Zofran] 4 mg tablet 4 mg PO DAILY PRN (Reason: nausea and vomiting) Qty: 20 RF: 0 Continued levothyroxine 175 mcg tablet 175 mcg PO DAILY RF: 0 ropinirole 0.5 mg tablet 0.5 mg PO HS RF: 0 propranolol 80 mg capsule,extended release 24 hr 80 mg PO DAILY RF: 0 rosuvastatin 40 mg tablet 40 mg PO DAILY RF: 0 ondansetron 4 mg tablet,disintegrating 4 mg PO Q6H PRN (Reason: nausea and vomiting) Qty: 12 RF: 0 ergocalciferol (vitamin D2) [Vitamin D2] 50,000 unit capsule 50,000 unit PO WK RF: 0 aspirin 81 mg tablet,delayed release (DR/EC) 81 mg PO DAILY Qty: 30 RF: 0 lisinopril 5 mg tablet 5 mg PO DAILY RF: 0 sucralfate [Carafate] 100 mg/mL Suspension 10 ml PO QID RF: 0 Novolog U-100 Insulin aspart 100 unit/mL solution SQ .CONTINUOUS RF: 0 ibuprofen 800 mg Tablet 800 mg PO TID PRN (Reason: Pain) RF: 0 Lantus U-100 Insulin 100 unit/mL Solution SUBCUT DAILY PRN (Reason: .RESCUE KIT) RF: 0 loratadine 10 mg Tablet 10 mg PO DAILY PRN (Reason: Allergy Symptoms) RF: 0 lorazepam 0.5 mg Tablet 0.5 mg PO Q6H PRN (Reason: Anxiety) RF: 0 montelukast 10 mg tablet 10 mg PO DAILY RF: 0 ranitidine HCl 150 mg tablet 150 mg PO HS RF: 0 albuterol sulfate [Ventolin HFA] 90 mcg/actuation Hfa Aerosol Inhaler 2 puff INHALATION QID PRN (Reason: Shortness Of Breath Or Wheezing) RF: 0 Discharge Orders: Discharge Order (Routine); Ordered 07/01/19 Ordered By: Tyson Calles Admission Data Admit Date/Time: 06/29/19 11:08 Attending Provider: Miki Chan Admit Provider: Gabriel Wong Primary Care Provider: Yaz Pantoja Other Providers: Elijah Wilson ; Gabriel Wong Other Interventions: Discharge Summary Assessment (RN) Last Done: 07/01/19 13:39 Infection Control - Act 87 Hepatitis C Last Done: 06/29/19 08:14 DC Date/Time DO NOT enter until pt leaves facility: 07/01/19 15:11 Supervising Physician Co-Signing Physician Notes Patient seen and examined with PGY-2 Dr. Calles. Agree with history, exam findings, assessment and plan of care as outlined. In brief, Ms Patel is a 64 year old female with hx of past cholecystectomy admitted with abdominal pain found to have an impacted stone in the CBD. Underwent ERCP. Gastritis found on EGD. She is doing well. Tolerating diet. Still with some abdominal pain, but improving. WBCs normalized, LFTS are trending down. MIld tenderness in RUQ/epigastric area on exam. 1. choledocholithiasis s/p biliary sphincterotomy, sphincteroplasty and balloon extraction. Pain improving. COntinue cipro x 7 days total. 2. Gastritis. PPI BID x 2 weeks. No NSAIDs. Other chronic conditions were stable and home meds continued. She can return to work next week. A work note will be provided for her. I personally spent 32 minutes discharge planning for this patient. Resident Activity Tracking Resident Involvement: Resident Care Provided Care Provided: Adult Hospital Medicine
== END 2019-07-01 15:11 | disposition home or self-care (01) | DRG 446 ==
LOC: 2N 17:17 → ED 17:17 → SUATTDRO 22:06 → 2N 22:33 → SUATTDRO 06-29 11:08 → 4W 06-29 18:14

== ENCOUNTER 2019-09-09 14:33 | Inpatient (IN) ==
[2019-09-09] MEDS ORDERED: ERTAPENEM SODIUM 1,000 MG in SYRINGE 0 ML IV STA (15:06)
[2019-09-09 16:14] LABS: Basophils # (auto) 0.01 K/uL (0-0.2); Basophils % (auto) 0.2 %; Hematocrit (blood only) 29.4 % (37-47); Hemoglobin 9.7 g/dL (12.0-16.0); Immature Granulocytes # (auto) 0.01 K/uL (0.00-0.02); Immature Granulocytes % (auto) 0.2 %; Lymphocytes % (auto) 31.4 %; Mean Platelet Volume 10.3 fL (7.4-10.4); Monocytes # (auto) 0.26 K/uL (0.11-0.59); Monocytes % (auto) 5.1 %; Neutrophils # (auto) 3.21 K/uL (1.4-6.5); Neutrophils % (auto) 63.1 %; Platelet Count 152 K/uL (130-400); RDW Coefficient of Variation 13.1 % (11.5-14.5); RDW Standard Deviation 42.5 fL (36.4-46.3); Red Blood Count 3.34 M/uL (4.2-5.4); White Blood Count 5.09 K/uL (4.8-10.8)
[2019-09-09] MEDS ORDERED: SODIUM CHLORIDE 0.9% 1000ML 1,000 ML IV ONE (16:17)
[2019-09-09] MEDS ORDERED: ONDANSETRON INJ 2 MG/ML 2 ML VIAL IV STA (16:17)
[2019-09-09] MEDS ORDERED: ACETAMINOPHEN 1,000 MG/100 ML VIAL IV STA (16:17)
--- NOTE | 2019-09-09 16:27 | History & Physical Report ---
Date of Service September 09, 2019 Assessment & Plan (1) Acute pyelonephritis: ESBL noted on final urine cx resulted on 09/09 Blood cx from 09/07 neg, repeat pending given ESBL and therefore ineffective initial abx choice No hx of other abx resistance or recurrent infections WBC elevated on 09/07, recheck in AM Ertapenem rec per pharmacy Cr WNL on 09/07, repeat in AM (2) Failure of outpatient treatment: As noted above (3) Hypothyroidism: continue home meds (4) Diabetic retinopathy associated with type 1 diabetes mellitus: Pt prefers to continue use of home pump as she has in the past with admission A1c 9.8 06/2019 (5) Hypertension: continue home meds (6) Hyperlipidemia: continue home meds (7) RLS (restless legs syndrome): continue home meds (8) Tobacco use disorder: smokes 1pp2-3 days None in the last few days with acute illness Declines need for nicotine patch at this time (9) DVT prophylaxis: SCDs, ambulation aspirin 81mg use is for prevention only History of Present Illness Primary Care Provider: Yaz Pantoja 64 y/o F with ESBL urine. Pt was seen in the ED on 09/07 and dx with pyelo. She was started on cefdenir and d/c'd to home. Pt has continued to feel unwell during this time. She has been able to keep abx down, but not much other PO. She continues to have fever, n/v, b/l flank pain that is worsening. Pt has no hx of pyelo that she is aware of. She has had UTIs in the past, but not a regular or recurrent issue. Her last was 5 yrs ago or more. She is rarely on abx for other issues. Pt denies SOB, chest pain, abd pain, c/d, LE pain or swelling. Pt's urine cx from 09/07 was noted for ESBL and pt was called to return to the ED for further tx. Allergies Allergy/AdvReac Type Severity Reaction Status Date / Time Penicillins Allergy Mild Unknown Verified 09/09/19 15:31 Sulfa (Sulfonamide Allergy Unknown HIVES Verified 09/09/19 15:31 Antibiotics) insulin glargine AdvReac Severe Vomiting Verified 09/09/19 15:31 [facility] Home Medications Home Medications Medication Instructions Recorded Confirmed Type ergocalciferol (vitamin D2) 50,000 unit PO MAYO 10/26/18 09/09/19 History [Vitamin D2] propranolol 80 mg PO QAM 02/09/19 09/09/19 History ropinirole 0.5 mg PO QAM 02/09/19 09/09/19 History rosuvastatin 40 mg PO QAM 02/09/19 09/09/19 History albuterol sulfate [Ventolin HFA] 2 puff INHALATION QID PRN 06/27/19 09/09/19 History lisinopril 5 mg PO QAM 06/27/19 09/09/19 History montelukast 10 mg PO QAM 06/27/19 09/09/19 History oxycodone 5 mg PO Q4H PRN #20 tab 07/01/19 09/09/19 Rx Lantus U-100 Insulin 100 unit/mL 50 units SUBCUT DAILY PRN #20 ml NS 07/15/19 09/09/19 Rx subcutaneous solution Novolog U-100 Insulin aspart 100 See Rx Instructions SQ .CONTINUOUS 07/15/19 09/09/19 Rx unit/mL subcutaneous solution #20 ml NS acetaminophen [Tylenol Arthritis 650 mg PO Q12H PRN 09/07/19 09/09/19 History Pain] aspirin 81 mg PO QAM 09/07/19 09/09/19 History cefdinir 300 mg PO BID 10 Days #20 cap 09/07/19 09/09/19 Rx levothyroxine 175 mcg PO QAM 09/07/19 09/09/19 History ondansetron HCl [Zofran] 4 mg PO Q6H PRN #10 tab 09/07/19 09/09/19 Rx Past Med/Surg History Medical History Biliary obstruction Chest pain (Resolved) Dizziness (Acute) DKA (diabetic ketoacidosis) (Resolved) Hyperlipidemia (Chronic) Surgical History History of cholecystectomy Family History Other No significant family history Social History Preferred Language: Barbadian Communication Ability: Effective Visual Impairment: No Limitations Hearing Ability: Normal 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 Beliefs That Will Affect Care: None Current Living Situation: Family Feels Safe at Home: Yes Smoking Status: Current every day smoker Tobacco Type: cigarettes ; Cigarettes Per Day: 6 ; Hx Alcohol Use: No Hx Substance Use: No Review of Systems Review of Systems: Pertinent positives and negatives reviewed in HPI--all others negative Physical Exam Constitutional: WD/WN, vitals as above Eyes: normal visual juan by confrontation and + anicteric sclerae Neck: normal visual inspection and trachea midline Respiratory: normal respiratory effort, lungs clear to auscultation Cardiovascular: Rate/Rhythm: regular rate and regular rhythm Gastrointestinal (Abdomen): Inspection/Auscultation: abdomen not distended Percussion/Palpation: abdomen soft; abdomen nontender Musculoskeletal: Head/Neck/Chest: normocephalic and head atraumatic negative for edema, peripheral pulses intact b/l CVA TTP Skin: no rashes, warm and dry Neurologic: awake; not confused Speech / Cognition: normal speech Psychiatric: A+Ox3, euthymic affect Results & Data Vital Signs (Past 12 Hours) Vital Signs Temp Pulse Resp BP Pulse Ox 09/09/19 14:34 36.8 C 79 20 167/80 H 96 Code Status & VTE Plan Code Status Full code VTE Prophylaxis Plan VTE Prophylaxis will be ordered: Yes PG Care Time/CCT Total # of Minutes Spent Total Time Spent with Patient: Total time spent is greater than 50% in coordination of care (as documented) at patient's floor/unit and/or counseling patient:
[2019-09-09 16:32] LABS: Albumin Level 2.9 gm/dl (3.4-5.0); BUN Creatinine Ratio 22.9 (10-20); Calcium 8.9 mg/dl (8.5-10.1); Creatinine Clr Calc Pharmacy 87.9 ml/min; Est GFR (African American) 111.4; Est GFR (Non-African American) 96.1; Potassium 3.4 mmol/L (3.5-5.1)
[2019-09-09 16:35] LABS: Albumin Globulin Ratio 0.9 (0.9-2); Bilirubin,Total 0.2 mg/dl (0.2-1); Globulin 3.2 gm/dl (2.5-4.0); Total Protein 6.1 gm/dl (6.4-8.2)
[2019-09-09] MEDS ORDERED: ONDANSETRON 4 MG TAB PO PRN (19:37)
[2019-09-09] MEDS ORDERED: NON-FORMULARY MEDICATION (Acetaminophen [Tylenol Arthritis Pain] 650 MG) PO PRN (19:37)
[2019-09-09] MEDS ORDERED: MAGNESIUM HYDROXIDE SUSP 30 ML UDC PO PRN (19:37)
[2019-09-09] MEDS ORDERED: ALBUTEROL HFA 8 GM INHALER INH PRN (19:37)
[2019-09-09] MEDS ORDERED: ONDANSETRON INJ 2 MG/ML 2 ML VIAL IV PRN (19:37)
[2019-09-09] MEDS ORDERED: LANTUS PER UNIT CHARGE SQ PRN (19:37)
[2019-09-09] MEDS ORDERED: INSULIN ASPART PER UNIT SQ SCH (19:37)
[2019-09-09] MEDS ORDERED: ACETAMINOPHEN 325 MG TAB ONE (20:02)
[2019-09-09] MEDS: SODIUM CHLORIDE 0.45 % 1,000 ML IV SCH (20:35)
[2019-09-09] MEDS ORDERED: GLUCOSE 10 TABS/TUBE PO PRN (20:45)
[2019-09-09] MEDS ORDERED: GLUCAGON FOR INJ 1 MG VIAL SQ PRN (20:45)
[2019-09-09] MEDS ORDERED: GLUCOSE 40% GEL 15 GM TUBE PO PRN (20:45)
[2019-09-09] MEDS ORDERED: DEXTROSE 50% 50 ML SYRINGE IV PRN (20:45)
[2019-09-09] MEDS ORDERED: CARBOHYDRATES FOR HYPOGLYCEMIA PO PRN (20:45)
[2019-09-09] MEDS ORDERED: INSULIN ASPART 100 UNITS/ML VIAL SC PRN (20:45)
[2019-09-09] MEDS: NovoLOG INSULIN PUMP SCH (22:16)
[2019-09-10] MEDS: ACETAMINOPHEN 325 MG TAB PO PRN (02:40)
[2019-09-10] MEDS: SODIUM CHLORIDE 0.45 % 1,000 ML IV SCH ×2 (06:06→15:20)
[2019-09-10] MEDS: LEVOTHYROXINE SODIUM 175 MCG TABLET PO SCH (06:06)
[2019-09-10 07:09] LABS: Basophils # (auto) 0.02 K/uL (0-0.2); Basophils % (auto) 0.4 %; Hematocrit (blood only) 29.5 % (37-47); Hemoglobin 9.7 g/dL (12.0-16.0); Lymphocytes # (auto) 1.39 K/uL (1.2-3.4); Lymphocytes % (auto) 26.1 %; Mean Corpuscular Hemoglobin 28.8 pg (25-34); Mean Corpuscular Hgb Conc 32.9 g/dL (32-36); Mean Corpuscular Volume 87.5 fL (80-100); Mean Platelet Volume 10.2 fL (7.4-10.4); Monocytes # (auto) 0.35 K/uL (0.11-0.59); Monocytes % (auto) 6.6 %; Neutrophils # (auto) 3.57 K/uL (1.4-6.5); Neutrophils % (auto) 66.9 %; Platelet Count 166 K/uL (130-400); RDW Standard Deviation 41.9 fL (36.4-46.3); Red Blood Count 3.37 M/uL (4.2-5.4); White Blood Count 5.33 K/uL (4.8-10.8)
[2019-09-10 07:37] LABS: BUN Creatinine Ratio 17.6 (10-20); Calcium 8.7 mg/dl (8.5-10.1); Creatinine Clr Calc Pharmacy 88.4 ml/min; Est GFR (African American) 111.4; Est GFR (Non-African American) 96.1
[2019-09-10] MEDS: NovoLOG INSULIN PUMP SCH ×4 (08:17→20:41)
[2019-09-10] MEDS: PROPRANOLOL HCL LA 80 MG CAPCR PO SCH (08:21)
[2019-09-10] MEDS: ROSUVASTATIN CALCIUM 20 MG TAB PO SCH (08:21)
[2019-09-10] MEDS: OXYCODONE HCL IR 5 MG TAB (IMMEDIATE RELEASE) PO PRN ×2 (08:21→14:18)
[2019-09-10] MEDS: ROPINIROLE HCL 0.25 MG TABLET PO SCH (08:21)
[2019-09-10] MEDS: ASPIRIN 81 MG ECTAB PO SCH (08:21)
[2019-09-10] MEDS: MONTELUKAST SODIUM 10 MG TABLET PO SCH (08:21)
[2019-09-10] MEDS: lisinopriL 5 MG TAB PO SCH (08:22)
[2019-09-10] MEDS ORDERED: DiphenhydrAMINE HCL 50 MG/ML VIAL IV STA (14:55)
[2019-09-10] MEDS ORDERED: PROCHLORPERAZINE 10 MG in SYRINGE 8 ML IV ONE (15:15)
[2019-09-10] MEDS: ERTAPENEM SODIUM 1,000 MG in SODIUM CHLORIDE 0.9% 50 ML IV SCH (16:09)
--- NOTE | 2019-09-10 19:32 | Hospitalist Progress Note ---
Date of Service September 10, 2019 Assessment & Plan (1) Acute pyelonephritis: ESBL noted on final urine cx resulted on 09/09 Blood cx from 09/07 neg, repeat pending given ESBL and therefore ineffective initial abx choice No hx of other abx resistance or recurrent infections WBC has normalized. Given that bacteria has been resistant to all orals except for nitrofurantoi, Patient will be on ertapenem. Patient will need to be set up with [facility]. Patient will need to come in daily for IV administration of Ertapenem.. Will likely require ultrasound guided peripheral line prior to discharge. (2) Failure of outpatient treatment: As noted above (3) Hypothyroidism: continue home meds (4) Diabetic retinopathy associated with type 1 diabetes mellitus: Pt prefers to continue use of home pump as she has in the past with admission A1c 9.8 06/2019 (5) Hypertension: continue home meds (6) Hyperlipidemia: continue home meds (7) RLS (restless legs syndrome): continue home meds (8) Tobacco use disorder: smokes 1pp2-3 days None in the last few days with acute illness Declines need for nicotine patch at this time (9) DVT prophylaxis: SCDs, ambulation aspirin 81mg use is for prevention only Subjective Patient reports doingwell. Patient has no new complaints at this time. Patient denies any fever or chills. Review of Systems Review of Systems: All systems reviewed & are unremarkable except as noted in HPI & below Physical Exam Physical Exam: Constitutional: WD/WN, vitals as above Eyes: normal visual juan by confrontation and + anicteric sclerae Neck: normal visual inspection and trachea midline Respiratory: normal respiratory effort, lungs clear to auscultation Cardiovascular: Rate/Rhythm: regular rate and regular rhythm Gastrointestinal (Abdomen): Inspection/Auscultation: abdomen not distended Percussion/Palpation: abdomen soft; abdomen nontender Musculoskeletal: Head/Neck/Chest: normocephalic and head atraumatic negative for edema, peripheral pulses intact b/l CVA TTP Skin: no rashes, warm and dry Neurologic: awake; not confused Speech / Cognition: normal speech Psychiatric: A+Ox3, euthymic affect Results & Data Vital Signs (Past 12 Hours) Vital Signs Temp Pulse Pulse Resp BP Pulse Ox 09/10/19 16:00 77 09/10/19 15:02 37.3 C 72 18 135/75 93 09/10/19 11:11 37.3 C 72 18 138/38 L 94 09/10/19 10:23 73 09/10/19 07:43 37.3 C 75 18 156/79 H 93 PG Care Time/CCT Total # of Minutes Spent Total Time Spent with Patient: Total time spent is greater than 50% in coordination of care (as documented) at patient's floor/unit and/or counseling patient:
[2019-09-11] MEDS ORDERED: PROCHLORPERAZINE 5 MG in SYRINGE 4 ML IV ONE (00:15)
[2019-09-11] MEDS: SODIUM CHLORIDE 0.45 % 1,000 ML IV SCH ×3 (00:26→20:38)
[2019-09-11] MEDS: LEVOTHYROXINE SODIUM 175 MCG TABLET PO SCH (05:33)
[2019-09-11] MEDS: NovoLOG INSULIN PUMP SCH ×4 (08:54→21:00)
[2019-09-11] MEDS: ROSUVASTATIN CALCIUM 20 MG TAB PO SCH (08:55)
[2019-09-11] MEDS: PROPRANOLOL HCL LA 80 MG CAPCR PO SCH (08:55)
[2019-09-11] MEDS: ASPIRIN 81 MG ECTAB PO SCH (08:56)
[2019-09-11] MEDS: MONTELUKAST SODIUM 10 MG TABLET PO SCH (08:56)
[2019-09-11] MEDS: ROPINIROLE HCL 0.25 MG TABLET PO SCH (08:56)
[2019-09-11] MEDS: lisinopriL 5 MG TAB PO SCH (08:56)
--- NOTE | 2019-09-11 10:15 | Hospitalist Progress Note ---
Date of Service September 11, 2019 Assessment & Plan (1) Acute pyelonephritis: ESBL noted on final urine cx resulted on 09/09 Blood cx from 09/07 neg, repeat pending given ESBL and therefore ineffective initial abx choice No hx of other abx resistance or recurrent infections WBC has normalized. Given that bacteria has been resistant to all orals except for nitrofurantoi, Patient will be on ertapenem. Patient will need to be set up with [facility]. Patient will need to come in daily for IV administration of Ertapenem.. Will likely require ultrasound guided peripheral line prior to discharge vs multiple sticks when she goes to [facility]. 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 (2) Failure of outpatient treatment: As noted above (3) Hypothyroidism: continue home meds (4) Diabetic retinopathy associated with type 1 diabetes mellitus: Pt prefers to continue use of home pump as she has in the past with admission A1c 9.8 06/2019 (5) Hypertension: continue home meds (6) Hyperlipidemia: continue home meds (7) RLS (restless legs syndrome): continue home meds (8) Tobacco use disorder: smokes 1pp2-3 days None in the last few days with acute illness Declines need for nicotine patch at this time (9) DVT prophylaxis: SCDs, ambulation aspirin 81mg use is for prevention only (10) Migraine: headaches subsided today. Patient will likely benefit from preventative meds such as a beta smiley (propranolol) prior suki discharge. Subjective Patient reports feeling better. She states her headache has subsided today. denies nausea, vomiting, diarrhea. Review of Systems Review of Systems: All systems reviewed & are unremarkable except as noted in HPI & below Physical Exam Physical Exam: Constitutional: WD/WN, vitals as above Eyes: normal visual juan by confrontation and + anicteric sclerae Neck: normal visual inspection and trachea midline Respiratory: normal respiratory effort, lungs clear to auscultation Cardiovascular: Rate/Rhythm: regular rate and regular rhythm Gastrointestinal (Abdomen): Inspection/Auscultation: abdomen not distended Percussion/Palpation: abdomen soft; abdomen nontender Musculoskeletal: Head/Neck/Chest: normocephalic and head atraumatic negative for edema, peripheral pulses intact b/l CVA TTP Skin: no rashes, warm and dry Neurologic: awake; not confused Speech / Cognition: normal speech Psychiatric: A+Ox3, euthymic affect Results & Data Vital Signs (Past 12 Hours) Vital Signs Temp Pulse Pulse Resp BP Pulse Ox 09/11/19 07:42 36.8 C 78 18 131/76 95 09/11/19 04:00 37.2 C 69 18 121/66 94 09/11/19 00:29 67 09/10/19 23:00 37.2 C 73 19 130/76 93 PG Care Time/CCT Total # of Minutes Spent Total Time Spent with Patient: Total time spent is greater than 50% in coordination of care (as documented) at patient's floor/unit and/or counseling patient:
[2019-09-11] MEDS: ERTAPENEM SODIUM 1,000 MG in SODIUM CHLORIDE 0.9% 50 ML IV SCH (16:24)
[2019-09-11 16:52] LABS: Appearance Urine Cloudy (Clear); Bacteria Urine Automated Negative (Negative); Bilirubin Urine Negative (Negative); Blood Urine Negative (Negative); Cast Urine Automated 0 /lpf (0-5); Color Urine Yellow; Glucose Urine UA 3+ (Negative); Ketones Urine Negative (Negative); Leukocyte Esterase Urine Negative (Negative); Nitrite Urine Negative (Negative); Protein Urine Negative (Negative); RBC Urine Automated 0-4 /hpf (0-4); Specific Gravity Urine 1.013 (1.000-1.030); Urobilinogen Urine Negative (Negative)
--- NOTE | 2019-09-11 23:48 | Emergency Department Note ---
Entered by Maxim Chaves acting as a scribe for History of Present Illness General Chief complaint: Need IV Start Stated complaint: SENT BY PHARMACY FOR IV MEDICATION Time Seen by Provider: 09/09/19 14:45 Source: patient Limitations: no limitations History of Present Illness Onset (ago): day(s) 4 Location: back Pain Consistency: + constant Maximum Pain Intensity: 7 Quality: + constant Associated symptoms: + fever/chills (fever) and + nausea/vomiting The patient is a 64 y/o female who presents to the ED w/ CC of constant back pain beginning 4 days ago. The patient states the pharmacist called her and told her to come to the ED due to an abnormal urine culture. She states she has an intermittent fever and notes she had a 101 fever this morning. She states she has been nauseous for 2 days. She notes she vomited this morning. She states her bowel movements are fine. She states she had previous UTIs. She denies having prior kidney stones. Pt states symptoms originally began on Thursday and she felt better after taking AZO. She was evaluated on Thursday here in the ER and diagnosed with pyelonephritis. She was discharged on antibiotics which she states she has been taking and she continues to feel worse. Home Medications Home Medications Medication Instructions Recorded Confirmed Type ergocalciferol (vitamin D2) 50,000 unit PO MAYO 10/26/18 09/09/19 History [Vitamin D2] propranolol 80 mg PO QAM 02/09/19 09/09/19 History ropinirole 0.5 mg PO QAM 02/09/19 09/09/19 History rosuvastatin 40 mg PO QAM 02/09/19 09/09/19 History albuterol sulfate [Ventolin HFA] 2 puff INHALATION QID PRN 06/27/19 09/09/19 History lisinopril 5 mg PO QAM 06/27/19 09/09/19 History montelukast 10 mg PO QAM 06/27/19 09/09/19 History oxycodone 5 mg PO Q4H PRN #20 tab 07/01/19 09/09/19 Rx Lantus U-100 Insulin 100 unit/mL 50 units SUBCUT DAILY PRN #20 ml NS 07/15/19 09/09/19 Rx subcutaneous solution Novolog U-100 Insulin aspart 100 See Rx Instructions SQ .CONTINUOUS 07/15/19 09/09/19 Rx unit/mL subcutaneous solution #20 ml NS acetaminophen [Tylenol Arthritis 650 mg PO Q12H PRN 09/07/19 09/09/19 History Pain] aspirin 81 mg PO QAM 09/07/19 09/09/19 History cefdinir 300 mg PO BID 10 Days #20 cap 09/07/19 09/09/19 Rx levothyroxine 175 mcg PO QAM 09/07/19 09/09/19 History ondansetron HCl [Zofran] 4 mg PO Q6H PRN #10 tab 09/07/19 09/09/19 Rx Allergies Allergy/AdvReac Type Severity Reaction Status Date / Time Penicillins Allergy Mild Unknown Verified 09/09/19 15:31 Sulfa (Sulfonamide Allergy Unknown HIVES Verified 09/09/19 15:31 Antibiotics) insulin glargine AdvReac Severe Vomiting Verified 09/09/19 15:31 [From [employer] U-300 Insulin] Past Med/Surg History Medical History Biliary obstruction Chest pain (Resolved) Dizziness (Acute) DKA (diabetic ketoacidosis) (Resolved) Hyperlipidemia (Chronic) Surgical History History of cholecystectomy Family History Other No significant family history Social History Preferred Language: Montenegrin Communication Ability: Effective Visual Impairment: No Limitations Hearing Ability: Normal [employer] Required: No Beliefs That Will Affect Care: None Current Living Situation: Family Current Living Situation Comment: son lives with her Other Information That Helps Us Care for You: No Feels Safe at Home: Yes Safety Concerns: Feels Safe At This Time Smoking Status: Current every day smoker Tobacco Type: cigarettes ; Cigarettes Per Day: 6 ; Do You Dip or Chew Tobacco: No ; Second Hand Exposure: No ; Tobacco Cessation Education Requested by Patient: No Hx Alcohol Use: No Hx Substance Use: No Review of Systems See HPI for pertinent positives & negatives. and A total of 10 systems reviewed and were otherwise negative Physical Exam Vital Signs Vital Signs - 24 hr 09/09/19 14:34 Temperature 98.2 F Temperature Source Oral Pulse Rate 79 Respiratory Rate 20 Respiratory Effort / Characteristics Non-Labored Spontaneous Respiratory Depth Normal Respiratory Pattern Regular Blood Pressure 167/80 H Blood Pressure Mean 109 Pulse Oximetry 96 Oxygen Delivery Method Room Air Sepsis Recent Fever Within 48 Hours No Sepsis Action Taken by Nursing No Action Required GENERAL: alert, ill appearing, well nourished, no distress, non-toxic EYE EXAM: normal conjunctiva, PERRL and EOM's grossly intact OROPHARYNX: no exudate, no erythema, lips, buccal mucosa, and tongue normal and mucous membranes are moist NECK: supple, no nuchal rigidity, no adenopathy, non-tender LUNGS: Clear to auscultation. Normal chest wall mechanics, no w/r/r HEART: no murmurs, S1 normal and S2 normal ABDOMEN: abdomen soft, non-tender, normo-active bowel sounds, no masses, no re bound or guarding. BACK: Back is symmetrical on inspection and there is no deformity, no midline tenderness, positive CVA tenderness. SKIN: no rashes and no bruising UPPER EXTREMITIES: upper extremities are grossly normal. FROM, nml pulses b/l. LOWER EXTREMITIES: No pitting edema. FROM, nml pulses b/l. NEURO EXAM: Normal sensorium, cranial nerves II-XII grossly intact, normal speech, no gross weakness of arms, no gross weakness of legs. Course Course 1452: Past medical records reviewed. The patient was evaluated in room A11B. A complete history and physical exam was performed. Culture had already been reviewed by the ED pharmacist who made recommendations for antibiotics. 1558: I discussed the patient with Dr. Bullock - [facility] Hospitalist - She will evaluate the patient for further treatment. Administered Medications Acetaminophen (Tylenol) 650 mg PO Q4H PRN PRN Reason: Pain or Fever Stop: 10/09/19 19:36 Last Admin: 09/10/19 02:40 Dose: 650 mg Documented by: [id number] Aspir[facility] ([facility]ab) [facility] Stop: 10/10/19 08:59 Last Admin: 09/11/19 08:56 Dose: 81 mg Documented by: [id number] Admin: 09/10/19 08:21 Dose: 81 mg Documented by: [id number] Ertapenem 1,000 mg/ Sodium (Chloride) 60 mls @ 100 mls/hr IV Q24H [facility] Stop: 09/19/19 15:59 Last Infusion: 09/11/19 17:28 Dose: 0 mls/hr Documented by: [id number] Admin: 09/11/19 16:24 Dose: 100 mls/hr Documented by: [id number] Infusion: 09/10/19 16:52 Dose: 0 mls/hr Documented by: [id number] Admin: 09/10/19 16:09 Dose: 100 mls/hr Documented by: [id number] Sodium Chloride (1/2 Nss) 1,000 mls @ 100 mls/hr IV .Q10H [facility] Stop: 10/09/19 19:36 Last Admin: 09/11/19 20:38 Dose: 100 mls/hr Documented by: [id number] Infusion: 09/11/19 20:38 Dose: 100 mls/hr Documented by: [id number] Admin: 09/11/19 10:47 Dose: 100 mls/hr Documented by: [id number] Infusion: 09/11/19 10:26 Dose: 100 mls/hr Documented by: [id number] Admin: 09/11/19 00:26 Dose: 100 mls/hr Documented by: [id number] Infusion: 09/11/19 00:26 Dose: 100 mls/hr Documented by: [id number] Admin: 09/10/19 15:20 Dose: 100 mls/hr Documented by: [id number] Infusion: 09/10/19 15:20 Dose: 100 mls/hr Documented by: [id number] Admin: 09/10/19 06:06 Dose: 100 mls/hr Documented by: [id number] Infusion: 09/10/19 06:06 Dose: 100 mls/hr Documented by: [id number] Admin: 09/09/19 20:35 Dose: 100 mls/hr Documented by: [id number] Insulin Aspart (Novolog Insulin Pump) 1 ea N/A ACHS [facility]; Protocol Stop: 10/09/19 20:59 Last Admin: 09/11/19 21:00 Dose: 1 ea Documented by: [id number] Admin: 09/11/19 17:27 Dose: 1 ea Documented by: [id number] Admin: 09/11/19 13:01 Dose: 1 ea Documented by: [id number] Admin: 09/11/19 08:54 Dose: 1 ea Documented by: [id number] Admin: 09/10/19 20:41 Dose: 1 ea Documented by: [id number] Admin: 09/10/19 17:07 Dose: 1 ea Documented by: [id number] Admin: 09/10/19 11:35 Dose: Not Given Documented by: [id number] Cosigned by: [id number] Admin: 09/10/19 08:17 Dose: Not Given Documented by: [id number] Admin: 09/09/19 22:16 Dose: 1 ea Documented by: [id number] Levothyroxine Sodium (Synthroid) [facility] Stop: 10/10/19 06:29 Last Admin: 09/11/19 05:33 Dose: 175 mcg Documented by: [id number] Admin: 09/10/19 06:06 Dose: 175 mcg Documented by: [id number] Lisinopril (Zestril) 5 mg PO [facility] Stop: 10/10/19 08:59 Last Admin: 09/11/19 08:56 Dose: 5 mg Documented by: [id number] Admin: 09/10/19 08:22 Dose: 5 mg Documented by: [id number] Montelukast Sodium (Singulair) 10 mg PO [facility] Stop: 10/10/19 08:59 Last Admin: 09/11/19 08:56 Dose: 10 mg Documented by: [id number] Admin: 09/10/19 08:21 Dose: 10 mg Documented by: [id number] Ondansetron HCl (Zofran Tab) 4 mg PO Q6H PRN PRN Reason: nausea and vomiting Stop: 10/09/19 19:36 Last Admin: 09/10/19 11:34 Dose: 4 mg Documented by: [id number] Oxycodone HCl (Roxicodone Immediate Rel) 5 mg PO Q4H PRN PRN Reason: Pain Stop: 09/23/19 20:25 Last Admin: 09/10/19 14:18 Dose: 5 mg Documented by: [id number] Admin: 09/10/19 08:21 Dose: 5 mg Documented by: [id number] Propranolol HCl (Inderal La) 80 mg PO [facility] Stop: 10/10/19 08:59 Last Admin: 09/11/19 08:55 Dose: 80 mg Documented by: [id number] Admin: 09/10/19 08:21 Dose: 80 mg Documented by: [id number] Ropinirole HCl (Requip) 0.[facility] Stop: 10/10/19 08:59 Last Admin: 09/11/19 08:56 Dose: 0.5 mg Documented by: [id number] Admin: 09/10/19 08:21 Dose: 0.5 mg Documented by: [id number] Rosuvastatin Calcium (Crestor) 40 [facility] Stop: 10/10/19 08:59 Last Admin: 09/11/19 08:55 Dose: 40 mg Documented by: [id number] Admin: 09/10/19 08:21 Dose: 40 mg Documented by: [id number] Discontinued Medications Acetaminophen (Tylenol) Confirm Administered Dose 650 mg .ROUTE .STK-MED ONE Stop: 09/09/19 20:03 Last Admin: 09/09/19 20:04 Dose: 650 mg Documented by: [id number] Diphenhydramine HCl (Benadryl) 25 mg IV NOW STA Stop: 09/10/19 14:56 Last Admin: 09/10/19 15:20 Dose: 25 mg Documented by: [id number] Diphenhydramine HCl (Benadryl Capsule) 25 mg PO NOW ONE Stop: 09/10/19 23:57 Last Admin: 09/11/19 00:07 Dose: 25 mg Documented by: [id number] Ertapenem 1,000 mg/ Syringe 10 mls @ 2 mls/min IV NOW STA Stop: 09/09/19 15:10 Last Admin: 09/09/19 16:33 Dose: 2 mls/min Documented by: [id number] Sodium Chloride (Nss 1000ml) 1,000 mls @ 999 mls/hr IV .Q1H1M ONE Stop: 09/09/19 17:17 Last Infusion: 09/09/19 17:41 Dose: 0 mls/hr Documented by: [id number] Admin: 09/09/19 16:33 Dose: 999 mls/hr Documented by: [id number] Acetaminophen (Ofirmev) 1,000 mg in 100 mls @ 400 mls/hr IV NOW STA Stop: 09/09/19 16:31 Last Infusion: 09/09/19 16:48 Dose: 0 mls/hr Documented by: [id number] Admin: 09/09/19 16:33 Dose: 400 mls/hr Documented by: [id number] Prochlorperazine 10 mg/ (Syringe) 10 mls @ 5 mls/min IV ONE ONE Stop: 09/10/19 15:16 Last Admin: 09/10/19 15:20 Dose: 5 mls/min Documented by: [id number] Prochlorperazine 5 mg/ Syringe 5 mls @ 5 mls/min IV ONE ONE Stop: 09/11/19 00:16 Last Admin: 09/11/19 00:26 Dose: 5 mls/min Documented by: [id number] Ondansetron HCl (Zofran) 4 mg IV NOW STA Stop: 09/09/19 16:18 Last Admin: 09/09/19 16:33 Dose: 4 mg Documented by: [id number] Medical Decision Making Differential Diagnosis Differential diagnosis: Etiologies such as viral syndrome, otitis, pharyngitis, pneumonia, influenza, meningitis, urinary tract infection, sepsis, bacteremia, as well as others were entertained. Medical Records Attestation: I reviewed the patient's medical records. Home Medications Current Medication List: was personally reviewed by me Laboratory Data Attestation: I reviewed the patient's lab results. Result diagrams: 09/10/19 06:40 09/10/19 06:40 Lab Results 09/09/19 09/09/19 09/09/19 Range/Units 16:01 16:01 16:01 WBC 5.09 (4.8-10.8) K/uL RBC 3.34 L (4.2-5.4) M/uL Hgb 9.7 L (12.0-16.0) g/dL Hct 29.4 L (37-47) % MCV 88.0 (80-100) fL MCH 29.0 (25-34) pg MCHC 33.0 (32-36) g/dL RDW Std Deviation 42.5 (36.4-46.3) fL RDW Coeff of Kandy 13.1 (11.5-14.5) % Plt Count 152 (130-400) K/uL MPV 10.3 (7.4-10.4) fL Immature Gran % (Auto) 0.2 % Neut % (Auto) 63.1 % Lymph % (Auto) 31.4 % [place] % (Auto) 5.1 % Eos % (Auto) 0.0 % Baso % (Auto) 0.2 % Immature Gran # (Auto) 0.01 (0.00-0.02) K/uL Neut # (Auto) 3.21 (1.4-6.5) K/uL Lymph # (Auto) 1.60 (1.2-3.4) K/uL [place] # (Auto) 0.26 (0.11-0.59) K/uL Eos # (Auto) 0.00 (0-0.5) K/uL Baso # (Auto) 0.01 (0-0.2) K/uL Sodium 141 (136-145) mmol/L Potassium 3.4 L (3.5-5.1) mmol/L Chloride 111 H (98-107) mmol/L Carbon Dioxide 25 (21-32) mmol/L Anion Gap 4.0 (3-11) BUN 14 (7-18) mg/dl Creatinine 0.63 (0.6-1.2) mg/dl Est Cr Clr Drug Dosing 87.9 ml/min Est GFR ( Amer) 111.4 Est GFR (Non-Af Amer) 96.1 BUN/Creatinine Ratio 22.9 H (10-20) Glucose 181 H (70-99) mg/dl Calcium 8.9 (8.5-10.1) mg/dl Total Bilirubin 0.2 (0.2-1) mg/dl AST 26 (15-37) U/L ALT 37 (12-78) U/L Alkaline Phosphatase 89 (45-117) U/L Total Protein 6.1 L (6.4-8.2) gm/dl Albumin 2.9 L (3.4-5.0) gm/dl Globulin 3.2 (2.5-4.0) gm/dl Albumin/Globulin Ratio 0.9 (0.9-2) Procalcitonin 1.27 H (0-0.5) ng/ml Imaging Data Radiologist's Impression: Radiology results as stated below per my review and the radiologist's interpretation: Blood Pressure Blood Pressure Findings: Elevated blood pressure Blood Pressure Disposition: further management by hospitalist OMEGA Narrative Pt here after culture follow-up revealed concern for worsening infection due to inadequate antibiotic coverage. Repeat labs performed, CT ordered to r/o other obstructive pathology, IV antibiotics started. No leukocytosis, however procalcitonin elevated. VS stable while in the ER. Case discussed with hospitalist for additional treatment. Imaging pending at that time. Pt aware of cultures and plan. Additional meds and IVF added. Impression & Plan Pyelonephritis, Failure of outpatient treatment Discharge Plan Visit Data *Final* Discharge Date/Time: 09/09/19 19:00 Chief Complaint: Need IV Start Stated Complaint: SENT BY PHARMACY FOR IV MEDICATION ED Provider: Helen Figueredo Discharge Problem: Pyelonephritis, Failure of outpatient treatment Patient Disposition: Admitted As Inpatient Discharge Instructions Interventions: ED Discharge Assessment Last Done: 09/09/19 19:00 The scribe's documentation has been prepared under my direction and personally reviewed by me in its entirety. I confirm that the note above accurately reflects all work, treatment, procedures, and medical decision making performed by me.
[2019-09-12] MEDS: ACETAMINOPHEN 325 MG TAB PO PRN (01:07)
[2019-09-12] MEDS: SODIUM CHLORIDE 0.45 % 1,000 ML IV SCH (05:41)
[2019-09-12] MEDS: LEVOTHYROXINE SODIUM 175 MCG TABLET PO SCH (05:42)
[2019-09-12] MEDS: NovoLOG INSULIN PUMP SCH ×2 (08:20→12:51)
[2019-09-12] MEDS: MONTELUKAST SODIUM 10 MG TABLET PO SCH (08:20)
[2019-09-12] MEDS: PROPRANOLOL HCL LA 80 MG CAPCR PO SCH (08:21)
[2019-09-12] MEDS: lisinopriL 5 MG TAB PO SCH (08:21)
[2019-09-12] MEDS: ROPINIROLE HCL 0.25 MG TABLET PO SCH (08:21)
[2019-09-12] MEDS: ASPIRIN 81 MG ECTAB PO SCH (08:21)
[2019-09-12] MEDS: ROSUVASTATIN CALCIUM 20 MG TAB PO SCH (08:21)
--- NOTE | 2019-09-12 10:24 | Discharge Summary ---
Date of Service September 12, 2019 Admission HPI Per Admitting Provider 64 y/o F with ESBL urine. Pt was seen in the ED on 09/07 and dx with pyelo. She was started on cefdenir and d/c'd to home. Pt has continued to feel unwell during this time. She has been able to keep abx down, but not much other PO. She continues to have fever, n/v, b/l flank pain that is worsening. Pt has no hx of pyelo that she is aware of. She has had UTIs in the past, but not a regular or recurrent issue. Her last was 5 yrs ago or more. She is rarely on abx for other issues. Pt denies SOB, chest pain, abd pain, c/d, LE pain or swelling. Pt's urine cx from 09/07 was noted for ESBL and pt was called to return to the ED for further tx. Discharge Data Allergies Allergy/AdvReac Type Severity Reaction Status Date / Time Penicillins Allergy Mild Unknown Verified 09/09/19 15:31 Sulfa (Sulfonamide Allergy Unknown HIVES Verified 09/09/19 15:31 Antibiotics) insulin glargine AdvReac Severe Vomiting Verified 09/09/19 15:31 [From [facility] SoloStar U-300 Insulin] Consultations 09/09/19 16:21 ED Decision to Admit Stat 09/09/19 19:37 Consult Case Management - Discharge Planning Routine Hospital Course (1) Acute pyelonephritis: ESBL noted on final urine cx resulted on 09/09 Blood cx from 09/07 neg, repeat pending given ESBL and therefore ineffective initial abx choice No hx of other abx resistance or recurrent infections WBC has normalized. Given that bacteria has been resistant to all orals except for nitrofurantoi, Patient will be on ertapenem. Patient will need to be set up with [facility]. Patient will need to come in daily for IV administration of Ertapenem.. Will likely require ultrasound guided peripheral line prior to discharge vs multiple sticks when she goes to [facility]. 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 (2) Failure of outpatient treatment: As noted above (3) Hypothyroidism: continue home meds (4) Diabetic retinopathy associated with type 1 diabetes mellitus: Pt prefers to continue use of home pump as she has in the past with admission A1c 9.8 06/2019 (5) Hypertension: continue home meds (6) Hyperlipidemia: continue home meds (7) RLS (restless legs syndrome): continue home meds (8) Tobacco use disorder: smokes 1pp2-3 days None in the last few days with acute illness Declines need for nicotine patch at this time (9) DVT prophylaxis: SCDs, ambulation aspirin 81mg use is for prevention only (10) Migraine: headaches subsided today. Patient will likely benefit from preventative meds such as a beta smiley (propranolol) prior suki discharge. Discharge Plan Discharge Items Patient Disposition: Home - Self-Care Reason For Visit: ESBL PYELO, FAILED OUTPT Discharge Diagnosis: Pyelonephritis, ESBL E coli Condition on Discharge: Good Goals: complete 14 days total of Ertapenem improve nutrition get rest Activity: Resume your previous activity Lifting: None Bathing: No limitations Exercise/Sports: Gradually increase as tolerated Driving/Machine Use: No limitations Weightbearing: Full weightbearing Non-emergency contact: Primary Care Provider Call non-emergency contact if: you have any medication questions, your symptoms worsen and you have a fever Follow-up/Referrals: Yaz Pantoja CRNP [Primary Care Provider] - Diet: Carb Consistent or DM2 Addtl Attending Provider Instructions: Medications: - ERTAPENEM: 1gm IV daily for 14 days total, last day will be 09/23/19 not on list below because script given to binder caser Pyelonephritis, urine culture with ESBL E coli, resistant bacteria that is sensitive to Ertapenem good response to the Ertapenem, vitals stable, no fever, WBC normal complete course of treatment through 09/23/19 FOLLOW UP - TODD Shanks, in one week for hospital follow up Pending Studies at Discharge: No Stand-Alone Forms: My [employer] Smoking Cessation Medications and DC Order Prescriptions: Continued Lantus U-100 Insulin 100 unit/mL solution 50 units SUBCUT DAILY PRN (Reason: .RESCUE KIT) Qty: 20 RF: 5 Novolog U-100 Insulin aspart 100 unit/mL solution See Rx Instructions SQ .CONTINUOUS Qty: 20 RF: 5 ropinirole 0.5 mg tablet 0.5 mg PO QAM RF: 0 propranolol 80 mg capsule,extended release 24 hr 80 mg PO QAM RF: 0 rosuvastatin 40 mg tablet 40 mg PO QAM RF: 0 acetaminophen [Tylenol Arthritis Pain] 650 mg Tablet Extended Release 650 mg PO Q12H PRN (Reason: Pain) RF: 0 levothyroxine 175 mcg tablet 175 mcg PO QAM RF: 0 aspirin 81 mg tablet,delayed release (DR/EC) 81 mg PO QAM RF: 0 ondansetron HCl [Zofran] 4 mg tablet 4 mg PO Q6H PRN (Reason: nausea and vomiting) Qty: 10 RF: 0 ergocalciferol (vitamin D2) [Vitamin D2] 50,000 unit capsule 50,000 unit PO MAYO RF: 0 lisinopril 5 mg tablet 5 mg PO QAM RF: 0 montelukast 10 mg tablet 10 mg PO QAM RF: 0 albuterol sulfate [Ventolin HFA] 90 mcg/actuation Hfa Aerosol Inhaler 2 puff INHALATION QID PRN (Reason: Shortness Of Breath Or Wheezing) RF: 0 oxycodone 5 mg Tablet 5 mg PO Q4H PRN (Reason: pain) Qty: 20 RF: 0 Discontinued cefdinir 300 mg capsule 300 mg PO BID 10 Days Qty: 20 RF: 0 Discharge Orders: Discharge Order (Routine); Ordered 09/12/19 Ordered By: Mike Mccarthy Admission Data Admit Date/Time: 09/09/19 16:25 Attending Provider: Mike Mccarthy Admit Provider: Mary Bullock Primary Care Provider: Yaz Pantoja Other Providers: Mary Bullock
[2019-09-12] MEDS: ERTAPENEM SODIUM 1,000 MG in SODIUM CHLORIDE 0.9% 50 ML IV SCH (11:40)
== END 2019-09-12 14:24 | disposition home or self-care (01) | DRG 690 ==
LOC: ED 14:33 → 2N 16:25 → SUATTDRO 16:25 → 2N 19:00

== ENCOUNTER 2020-05-21 18:22 | Inpatient (IN) ==
[2020-05-21] MEDS ORDERED: KETOROLAC TROMETHAMINE 15 MG/ML VIAL IV STA (19:49)
--- NOTE | 2020-05-21 20:21 | Emergency Department Note ---
History of Present Illness General Chief complaint: Cough Stated complaint: EXPOSED TO COVID SOB COUGH Time Seen by Provider: 05/21/20 19:19 History of Present Illness Maximum Pain Intensity: 5 Patient is a 64-year-old female with past medical history significant for type 1 diabetes on an insulin pump, coronary artery disease, hypertension, dyslipidemia, hypothyroidism, among other chronic medical problems who presents for evaluation of cough, shortness of breath with associated COVID-19 exposure. 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 She states that she was in close contact with all of the residents who have tested positive, providing care for them. They did not use N95 masks or more aggressive PPE until about 5 days ago, after the positive test results came in. Patient states that she started to experience symptoms 2 days ago, primarily a dry, nonproductive cough. She also noted shortness of breath with exertion. She has some nasal congestion, dry mouth, nausea and decreased oral intake. She states that her blood sugars also started to run high over the weekend, they were reading in the 400s, despite trying to correct with her pump. She is concerned she could be in DKA. She documented a temperature of 100.3 F orally today. She has been checking her oxygen saturations at home and they have been normal. She denies any chest pain. She does admit to a generalized throbbing headache today. She denies any vomiting or diarrhea. Does note increased urinary output but no dysuria. She does have a history of DKA roughly 4 years ago. Blood sugar was checked in triage and was over 600. Home Medications Home Medications Medication Instructions Recorded Confirmed Type propranolol 80 mg PO QAM 02/09/19 05/21/20 History ropinirole 0.5 mg PO QAM 02/09/19 05/21/20 History rosuvastatin 40 mg PO QAM 02/09/19 05/21/20 History albuterol sulfate [Ventolin HFA] 2 puff INHALATION QID PRN 06/27/19 05/21/20 History lisinopril 5 mg PO QAM 06/27/19 05/21/20 History montelukast 10 mg PO QAM 06/27/19 05/21/20 History oxycodone 5 mg PO Q4H PRN #20 tab 07/01/19 05/21/20 Rx acetaminophen [Tylenol Arthritis 650 mg PO Q12H PRN 09/07/19 05/21/20 History Pain] aspirin 81 mg PO QAM 09/07/19 05/21/20 History ondansetron HCl [Zofran] 4 mg PO Q6H PRN #10 tab 09/07/19 05/21/20 Rx OneTouch Ultra Blue Test Strip #200 ea NS 01/12/20 03/16/20 Rx levothyroxine 137 mcg tablet 137 mcg PO DAILY #30 tab 04/03/20 05/21/20 Rx Novolog U-100 Insulin aspart 100 See Rx Instructions .ROUTE 04/26/20 05/21/20 Rx unit/mL subcutaneous solution .COMPLEX #30 ml NS cholecalciferol (vitamin D3) 50 mcg PO QAM 05/21/20 05/21/20 History [Vitamin D3] gabapentin 100 mg PO TID 05/21/20 05/21/20 History hydrocodone-acetaminophen 1 tab PO Q12H PRN 05/21/20 05/21/20 History Allergies Allergy/AdvReac Type Severity Reaction Status Date / Time Sulfa (Sulfonamide Allergy Intermediate HIVES Verified 05/21/20 21:17 Antibiotics) insulin glargine AdvReac Severe SEE COMMENT Verified 05/21/20 21:17 [From [employer]o SoloStar U-300 Insulin] Past Med/Surg History Medical History CAD (coronary artery disease) Diabetes 1.5, managed as type 1 Patient has an insulin pump Diabetic retinopathy associated with type 1 diabetes mellitus Hyperlipidemia Hypertension Hypothyroidism RLS (restless legs syndrome) Tobacco use disorder Type 1 diabetes mellitus, uncontrolled Vitamin D deficiency Surgical History History of cholecystectomy Family History Other No significant family history Social History Smoking Status: Current every day smoker Cigarettes Per Day: 6; Second Hand Exposure: No; Hx Alcohol Use: No Hx Substance Use: No Preferred Language: Icelandic Communication Ability: Effective Visual Impairment: No Limitations Hearing Ability: Normal Civil Cadd Technician Required: No Beliefs That Will Affect Care: None Current Living Situation: Family Current Living Situation Comment: son lives with her Feels Safe at Home: Yes Assistive Devices: Glasses Review of Systems A total of 10 systems reviewed and were otherwise negative Physical Exam Vital Signs Vital Signs - 24 hr 05/21/20 18:47 05/21/20 19:42 05/21/20 20:00 Temperature Temperature Source Pulse Rate 92 H 86 89 Pulse Rate [Apical] Pulse Rate from SpO2 Sensor 87 86 Pulse Rhythm Regular Pulse Strength Normal Respiratory Rate 20 21 17 Respiratory Effort / Characteristics Non-Labored Spontaneous Respiratory Depth Normal Respiratory Pattern Regular Blood Pressure 101/64 134/64 Blood Pressure [Right Arm] Blood Pressure Mean 76 87 Blood Pressure Mean [Right Arm] Blood Pressure Position Sitting Pulse Oximetry 100 97 98 Oxygen Delivery Method Room Air Room Air Room Air Sepsis Recent Fever Within 48 Hours No Sepsis New/Unexplained Change in Mental Status N/A Sepsis Action Taken by Nursing No Action Required 05/21/20 20:46 05/21/20 20:47 05/21/20 20:48 Temperature Temperature Source Pulse Rate 91 H 88 89 Pulse Rate [Apical] Pulse Rate from SpO2 Sensor 88 89 Pulse Rhythm Pulse Strength Respiratory Rate 24 20 22 Respiratory Effort / Characteristics Respiratory Depth Respiratory Pattern Blood Pressure 125/58 L Blood Pressure [Right Arm] Blood Pressure Mean 69 Blood Pressure Mean [Right Arm] Blood Pressure Position Pulse Oximetry 97 97 Oxygen Delivery Method Sepsis Recent Fever Within 48 Hours Sepsis New/Unexplained Change in Mental Status Sepsis Action Taken by Nursing 05/21/20 21:00 05/21/20 21:30 05/21/20 21:31 Temperature Temperature Source Pulse Rate 89 93 H 89 Pulse Rate [Apical] Pulse Rate from SpO2 Sensor 89 96 H 89 Pulse Rhythm Pulse Strength Respiratory Rate 16 20 24 Respiratory Effort / Characteristics Respiratory Depth Respiratory Pattern Blood Pressure 127/56 L 125/55 L Blood Pressure [Right Arm] Blood Pressure Mean 80 78 Blood Pressure Mean [Right Arm] Blood Pressure Position Pulse Oximetry 96 94 97 Oxygen Delivery Method Sepsis Recent Fever Within 48 Hours Sepsis New/Unexplained Change in Mental Status Sepsis Action Taken by Nursing 05/21/20 21:53 05/21/20 22:00 05/21/20 22:30 Temperature 36.5 C Temperature Source Oral Pulse Rate 90 88 Pulse Rate [Apical] Pulse Rate from SpO2 Sensor 88 89 Pulse Rhythm Pulse Strength Respiratory Rate 21 24 Respiratory Effort / Characteristics Respiratory Depth Respiratory Pattern Blood Pressure 146/65 H 122/56 L Blood Pressure [Right Arm] Blood Pressure Mean 87 81 Blood Pressure Mean [Right Arm] Blood Pressure Position Pulse Oximetry 98 99 Oxygen Delivery Method Sepsis Recent Fever Within 48 Hours Sepsis New/Unexplained Change in Mental Status Sepsis Action Taken by Nursing 05/22/20 00:02 Temperature Temperature Source Pulse Rate Pulse Rate [Apical] 94 H Pulse Rate from SpO2 Sensor Pulse Rhythm Pulse Strength Respiratory Rate 18 Respiratory Effort / Characteristics Non-Labored Spontaneous Respiratory Depth Normal Respiratory Pattern Blood Pressure Blood Pressure [Right Arm] 131/50 L Blood Pressure Mean Blood Pressure Mean [Right Arm] 77 Blood Pressure Position Pulse Oximetry 98 Oxygen Delivery Method Room Air Sepsis Recent Fever Within 48 Hours Sepsis New/Unexplained Change in Mental Status Sepsis Action Taken by Nursing CONSTITUTIONAL: Patient is an ill although nontoxic appearing 65-year-old female who is awake and alert and in no acute distress. EYES: Pupils equal, round, reactive to light and accommodation. EOMs intact without nystagmus. Sclera are anicteric. ENT: Tympanic membranes intact, with normal landmarks. External canals are clear. Oral and nasopharynx are clear. Mucous membranes are dry, no lesions, t ongue and gums appear normal. NECK: Supple without lymphadenopathy. No thyromegaly. No meningeal signs. Full active range of motion without discomfort. CARDIOVASCULAR: Regular rate and rhythm, with normal S1 and S2, no murmur or gallop or rub is heard. No JVD. Peripheral pulses easy to palpable. RESPIRATORY: Breath sounds equal and clear to auscultation without wheezes, rales, or rhonchi heard. Full and equal chest expansion without accessory muscle use or retractions. GI: Bowel sounds are present. Abdomen is soft, nontender, nondistended. No organomegaly. No pulsatile masses. No guarding or rebound. MUSCULOSKELETAL: Full range of motion of extremities x 4 with good strength. No cyanosis, edema, joint tenderness or swelling. No deformity. INTEGUMENTARY: No lesions or rash, normal skin turgor. NEUROLOGICAL: Alert, oriented, and cooperative. Cranial nerves, sensation and strength grossly intact. Pupils round, equal, and react to light, EOMs are full. LYMPH: No lymphadenopathy. Course Course The patient was seen and assessed as above. Old records were reviewed. History and presentation were reviewed with Dr. Hawley and ED work-up was agreed upon. IV lock was initiated and laboratory studies were collected. Patient was observed on the monitor tech. She was provided with ice chips. CBC with differential, ABG, CMP, magnesium, phosphorus, troponin, urinalysis and a rapid COVID swab were obtained. The patient was ordered Toradol 15 mg IV for her headache and a 2 L bolus of normal saline solution for hydration. There was some delay in hydrating and medicating the patient due to difficult IV access. Chest x-ray and EKG were performed and are as outlined below. Laboratory studies noted a white count of 23,100 with left shift and bandemia noted. H&H 13.1 and 39.2. Chemistries sodium 127, potassium 5.7, chloride 94, carbon dioxide 15, BUN 29 creatinine 1.17, anion gap 18. Glucose 641 on venous draw. Museum 2.3, phosphorus 5.5. Transaminases noted a slightly elevated alk phos. Troponin is detectable but still within normal limits at 0.027. Urine microscopy notes glucose and ketones, no signs of infection. Rapid COVID swab is negative. ABG notes pH 7.38, PCO2 29, PO2 90, bicarb 16. Chest x-ray noted a stable granuloma in the left midlung, otherwise no focal consolidation, failure or effusion. All laboratory and diagnostic imaging studies were reviewed with Dr. Hawley. Repeat BSG after IV hydration was 467. Insulin drip was ordered. Laboratory studies and test results were discussed with the patient and admission/observation was recommended. She was in agreement. She was still nauseous, and was administered Zofran 4 mg IV. Consultation was placed with the [facility] Hospitalist Service for further care and evaluation in the hospital. Administered Medications Discontinued Medications Sodium Chloride (Nss 1000ml) 1,000 mls @ 999 mls/hr IV .Q1H1M LIBERTY Stop: 05/21/20 21:51 Last Infusion: 05/21/20 23:12 Dose: 0 mls/hr Documented by: [id number] Admin: 05/21/20 21:50 Dose: 999 mls/hr Documented by: [id number] Infusion: 05/21/20 21:50 Dose: 999 mls/hr Documented by: [id number] Admin: 05/21/20 21:50 Dose: 999 mls/hr Documented by: [id number] Ketorolac Tromethamine (Ketorolac Tromethamine 15 Mg/Ml Vial) 15 mg IV NOW STA Stop: 05/21/20 19:50 Last Admin: 05/21/20 21:53 Dose: 15 mg Documented by: [id number] Ondansetron HCl (Ondansetron Inj 2 Mg/Ml 2 Ml Vial) 4 mg IV NOW STA Stop: 05/21/20 22:48 Last Admin: 05/21/20 23:11 Dose: 4 mg Documented by: [id number] Medical Decision Making Differential Diagnosis Differential diagnoses included viral illness including influenza or coronavirus, bronchitis, pneumonia, acute myocardial infarction, acute coronary syndrome, myocarditis, pericarditis, pneumothorax, cardiomyopathy, congestive heart failure, COPD exacerbation, electrolyte or metabolic abnormality, among others. Medical Records Attestation: I reviewed the patient's medical records. Home Medications Current Medication List: was personally reviewed by me Laboratory Data Attestation: I reviewed the patient's lab results. Result diagrams: 05/21/20 20:43 05/21/20 20:43 Lab Results 05/21/20 05/21/20 05/21/20 Range/Units 18:49 20:20 20:23 WBC (4.8-10.8) K/uL RBC (4.2-5.4) M/uL Hgb (12.0-16.0) g/dL Hct (37-47) % MCV (80-100) fL MCH (25-34) pg MCHC (32-36) g/dL RDW Std Deviation (36.4-46.3) fL RDW Coeff of Kandy (11.5-14.5) % Plt Count (130-400) K/uL MPV (7.4-10.4) fL Immature Gran % (Auto) % Neut % (Auto) % Lymph % (Auto) % [place] % (Auto) % Eos % (Auto) % Baso % (Auto) % Neut # (Auto) (1.4-6.5) K/uL Lymph # (Auto) (1.2-3.4) K/uL [place] # (Auto) (0.11-0.59) K/uL Eos # (Auto) (0-0.5) K/uL Baso # (Auto) (0-0.2) K/uL Immature Gran # (Auto) (0.00-0.02) K/uL Echinocytes ABG pH (7.35-7.45) ABG pCO2 (35-46) mmHg ABG pO2 (80-95) mmHg ABG HCO3 (19-24) mmol/L ABG O2 Saturation (90-95) % ABG Base Excess (-9-1.8) mEq/L Shankar Test (Pos) Barometric Pressure mm/Hg Oxygen Given Sodium (136-145) mmol/L Potassium (3.5-5.1) mmol/L Chloride (98-107) mmol/L Carbon Dioxide (21-32) mmol/L Anion Gap (3-11) BUN (7-18) mg/dl Creatinine (0.6-1.2) mg/dl Est Cr Clr Drug Dosing Est GFR ( Amer) Est GFR (Non-Af Amer) BUN/Creatinine Ratio (10-20) Glucose (70-99) mg/dl POC Glucose > 600 H* (70-99) mg/dl Calcium (8.5-10.1) mg/dl Phosphorus (2.5-4.9) mg/dl Magnesium (1.8-2.4) mg/dl Total Bilirubin (0.2-1) mg/dl AST (15-37) U/L ALT (12-78) U/L Alkaline Phosphatase (45-117) U/L Troponin I (0-0.045) ng/ml Total Protein (6.4-8.2) gm/dl Albumin (3.4-5.0) gm/dl Globulin (2.5-4.0) gm/dl Albumin/Globulin Ratio (0.9-2) Beta-Hydroxybutyric Acd (0.2-2.81) mg/dl Specimen Hemolysis Urine Color Yellow Urine Appearance Clear (Clear) Urine pH 5.0 (4.5-7.5) Ur Specific [place] 1.033 H (1.000-1.030) Urine Protein Negative (Negative) Urine Glucose (UA) 3+ H (Negative) Urine Ketones 1+ H (Negative) Urine Blood Negative (Negative) Urine Nitrite Negative (Negative) Urine Bilirubin Negative (Negative) Urine Urobilinogen Negative (Negative) Ur Leukocyte Esterase Negative (Negative) COVID-19 Eval Order Covid19 Done at [facility] COVID-19 PCR (Negative) 05/21/20 05/21/20 05/21/20 Range/Units 20:23 20:43 20:43 WBC 25.17 H (4.8-10.8) K/uL RBC 4.57 (4.2-5.4) M/uL Hgb 13.1 (12.0-16.0) g/dL Hct 39.2 (37-47) % MCV 85.8 (80-100) fL MCH 28.7 (25-34) pg MCHC 33.4 (32-36) g/dL RDW Std Deviation 40.4 (36.4-46.3) fL RDW Coeff of Kandy 12.8 (11.5-14.5) % Plt Count 240 (130-400) K/uL MPV 12.0 H (7.4-10.4) fL Immature Gran % (Auto) 0.4 % Neut % (Auto) 86.0 % Lymph % (Auto) 7.3 % [place] % (Auto) 6.2 % Eos % (Auto) 0.0 % Baso % (Auto) 0.1 % Neut # (Auto) 21.66 H (1.4-6.5) K/uL Lymph # (Auto) 1.83 (1.2-3.4) K/uL [place] # (Auto) 1.55 H (0.11-0.59) K/uL Eos # (Auto) 0.00 (0-0.5) K/uL Baso # (Auto) 0.02 (0-0.2) K/uL Immature Gran # (Auto) 0.11 H (0.00-0.02) K/uL Echinocytes 1+ ABG pH (7.35-7.45) ABG pCO2 (35-46) mmHg ABG pO2 (80-95) mmHg ABG HCO3 (19-24) mmol/L ABG O2 Saturation (90-95) % ABG Base Excess (-9-1.8) mEq/L Shankar Test (Pos) Barometric Pressure mm/Hg Oxygen Given Sodium 127 L (136-145) mmol/L Potassium 5.7 H (3.5-5.1) mmol/L Chloride 94 L (98-107) mmol/L Carbon Dioxide 15 L (21-32) mmol/L Anion Gap 18.0 H (3-11) BUN 29 H (7-18) mg/dl Creatinine 1.17 (0.6-1.2) mg/dl Est Cr Clr Drug Dosing Not Reportable Est GFR ( Amer) 57.4 Est GFR (Non-Af Amer) 49.6 BUN/Creatinine Ratio 25.0 H (10-20) Glucose 641 H* (70-99) mg/dl POC Glucose (70-99) mg/dl Calcium 9.9 (8.5-10.1) mg/dl Phosphorus 5.5 H (2.5-4.9) mg/dl Magnesium 2.3 (1.8-2.4) mg/dl Total Bilirubin 0.7 (0.2-1) mg/dl AST 25 (15-37) U/L ALT 55 (12-78) U/L Alkaline Phosphatase 124 H (45-117) U/L Troponin I 0.027 (0-0.045) ng/ml Total Protein 7.0 (6.4-8.2) gm/dl Albumin 3.6 (3.4-5.0) gm/dl Globulin 3.4 (2.5-4.0) gm/dl Albumin/Globulin Ratio 1.0 (0.9-2) Beta-Hydroxybutyric Acd (0.2-2.81) mg/dl Specimen Hemolysis Urine Color Urine Appearance (Clear) Urine pH (4.5-7.5) Ur Specific [place] (1.000-1.030) Urine Protein (Negative) Urine Glucose (UA) (Negative) Urine Ketones (Negative) Urine Blood (Negative) Urine Nitrite (Negative) Urine Bilirubin (Negative) Urine Urobilinogen (Negative) Ur Leukocyte Esterase (Negative) COVID-19 Eval Order COVID-19 PCR NEGATIVE (Negative) 05/21/20 05/21/20 05/21/20 Range/Units 20:43 23:08 23:08 WBC (4.8-10.8) K/uL RBC (4.2-5.4) M/uL Hgb (12.0-16.0) g/dL Hct (37-47) % MCV (80-100) fL MCH (25-34) pg MCHC (32-36) g/dL RDW Std Deviation (36.4-46.3) fL RDW Coeff of Kandy (11.5-14.5) % Plt Count (130-400) K/uL MPV (7.4-10.4) fL Immature Gran % (Auto) % Neut % (Auto) % Lymph % (Auto) % [place] % (Auto) % Eos % (Auto) % Baso % (Auto) % Neut # (Auto) (1.4-6.5) K/uL Lymph # (Auto) (1.2-3.4) K/uL [place] # (Auto) (0.11-0.59) K/uL Eos # (Auto) (0-0.5) K/uL Baso # (Auto) (0-0.2) K/uL Immature Gran # (Auto) (0.00-0.02) K/uL Echinocytes ABG pH 7.38 (7.35-7.45) ABG pCO2 29 L (35-46) mmHg ABG pO2 90 (80-95) mmHg ABG HCO3 16 L (19-24) mmol/L ABG O2 Saturation 96.7 H (90-95) % ABG Base Excess -7.4 (-9-1.8) mEq/L Shankar Test Pos (Pos) Barometric Pressure 726.6 mm/Hg Oxygen Given Room Air Sodium (136-145) mmol/L Potassium (3.5-5.1) mmol/L Chloride (98-107) mmol/L Carbon Dioxide (21-32) mmol/L Anion Gap (3-11) BUN (7-18) mg/dl Creatinine (0.6-1.2) mg/dl Est Cr Clr Drug Dosing Est GFR ( Amer) Est GFR (Non-Af Amer) BUN/Creatinine Ratio (10-20) Glucose (70-99) mg/dl POC Glucose 491 H* 467 H* (70-99) mg/dl Calcium (8.5-10.1) mg/dl Phosphorus (2.5-4.9) mg/dl Magnesium (1.8-2.4) mg/dl Total Bilirubin (0.2-1) mg/dl AST (15-37) U/L ALT (12-78) U/L Alkaline Phosphatase (45-117) U/L Troponin I (0-0.045) ng/ml Total Protein (6.4-8.2) gm/dl Albumin (3.4-5.0) gm/dl Globulin (2.5-4.0) gm/dl Albumin/Globulin Ratio (0.9-2) Beta-Hydroxybutyric Acd (0.2-2.81) mg/dl Specimen Hemolysis Urine Color Urine Appearance (Clear) Urine pH (4.5-7.5) Ur Specific [place] (1.000-1.030) Urine Protein (Negative) Urine Glucose (UA) (Negative) Urine Ketones (Negative) Urine Blood (Negative) Urine Nitrite (Negative) Urine Bilirubin (Negative) Urine Urobilinogen (Negative) Ur Leukocyte Esterase (Negative) COVID-19 Eval Order COVID-19 PCR (Negative) Imaging Data Attestation: I personally reviewed and interpreted this imaging study as follows: Radiologist's Impression: XR chest 1V portable CLINICAL HISTORY: COUGH, SOB COMPARISON STUDY: 11/10/2019 FINDINGS: The cardiac and mediastinal contours are normal. There is no evidence of focal pulmonary consolidation. There is no evidence of failure. No pleural effusions are visualized.[There is a stable calcified granuloma within the left midlung zone. IMPRESSION: No active disease in the chest. ECG Data Attestation: I personally reviewed and interpreted this ECG as follows: Indication: + SOB/dyspnea and + toxicologic Rate (beats per minute): 82 Rhythm: + normal sinus ECG Parkman: + Normal ECG ST segments: no ST elevation and no T-wave inversions Comparison ECG Date: from (06/2019) Change: no significant change Blood Pressure Blood Pressure Findings: Low blood pressure Blood Pressure Disposition: further management by hospitalist MDM Narrative See ED Course. Impression & Plan DKA (diabetic ketoacidoses) Discharge Plan Visit Data Chief Complaint: Cough Stated Complaint: EXPOSED TO COVID SOB COUGH ED Provider: Diann Hawley ED Midlevel Provider: Hiren Davis Discharge Problem: DKA (diabetic ketoacidoses) Patient Disposition: Being Evaluated by Hospitalist Discharge Instructions Nicole/Other Patient Handouts: 2019-nCoV Forms Stand Alone Forms: My [facility] Prescriptions Prescriptions: No Action (DME) blood sugar diagnostic [OneTouch Ultra Blue Test Strip] Strip See Rx Instructions .ROUTE .MEDSUPPLY Qty: 200 RF: 5 levothyroxine 137 mcg tablet 137 mcg PO DAILY Qty: 30 RF: 2 Novolog U-100 Insulin aspart 100 unit/mL solution See Rx Instructions .ROUTE .COMPLEX Qty: 30 RF: 5 ropinirole 0.5 mg tablet 0.5 mg PO QAM RF: 0 propranolol 80 mg capsule,extended release 24 hr 80 mg PO QAM RF: 0 rosuvastatin 40 mg tablet 40 mg PO QAM RF: 0 acetaminophen [Tylenol Arthritis Pain] 650 mg Tablet Extended Release 650 mg PO Q12H PRN (Reason: Pain) RF: 0 aspirin 81 mg tablet,delayed release (DR/EC) 81 mg PO QAM RF: 0 ondansetron HCl [Zofran] 4 mg tablet 4 mg PO Q6H PRN (Reason: nausea and vomiting) Qty: 10 RF: 0 hydrocodone-acetaminophen 7.5-325 mg Tablet 1 tab PO Q12H PRN (Reason: Pain) RF: 0 gabapentin 100 mg Capsule 100 mg PO TID RF: 0 cholecalciferol (vitamin D3) [Vitamin D3] 50 mcg (2,000 unit) Capsule 50 mcg PO QAM RF: 0 lisinopril 5 mg tablet 5 mg PO QAM RF: 0 montelukast 10 mg tablet 10 mg PO QAM RF: 0 albuterol sulfate [Ventolin HFA] 90 mcg/actuation Hfa Aerosol Inhaler 2 puff INHALATION QID PRN (Reason: Shortness Of Breath Or Wheezing) RF: 0 oxycodone 5 mg Tablet 5 mg PO Q4H PRN (Reason: pain) Qty: 20 RF: 0 Referrals Referrals: Yaz Pantoja CRNP [Primary Care Provider] -
--- NOTE | 2020-05-21 20:32 | XRay Report ---
XR chest 1V portable CLINICAL HISTORY: COUGH, SOB COMPARISON STUDY: 11/10/2019 FINDINGS: The cardiac and mediastinal contours are normal. There is no evidence of focal pulmonary co nsolidation. There is no evidence of failure. No pleural effusions are visualized.[There is a stable calcified granuloma within the left midlung zone. IMPRESSION: No active disease in the chest. ACT 112: Negative or not required by law. Electronically signed by: Solitario Colon M.D. 05/21/2020 8:31 PM
[2020-05-21 20:34] LABS: Appearance Urine Clear (Clear); Bilirubin Urine Negative (Negative); Blood Urine Negative (Negative); Color Urine Yellow; Glucose Urine UA 3+ (Negative); Ketones Urine 1+ (Negative); Leukocyte Esterase Urine Negative (Negative); Nitrite Urine Negative (Negative); Protein Urine Negative (Negative); Specific Gravity Urine 1.033 (1.000-1.030); Urobilinogen Urine Negative (Negative)
[2020-05-21 20:56] LABS: Base Excess ABG -7.4 mEq/L (-9-1.8); HCO3 ABG 16 mmol/L (19-24); Oxygen Saturation ABG 96.7 % (90-95); PCO2 ABG 29 mmHg (35-46); PO2 ABG 90 mmHg (80-95); pH ABG 7.38 (7.35-7.45)
[2020-05-21 20:57] LABS: Allen Test Pos (Pos)
[2020-05-21 21:26] LABS: Alanine Aminotransferase 55 U/L (12-78); Albumin Level 3.6 gm/dl (3.4-5.0); Alkaline Phosphatase 124 U/L (45-117); Aspartate Aminotransferase 25 U/L (15-37); Bilirubin,Total 0.7 mg/dl (0.2-1); Blood Urea Nitrogen 29 mg/dl (7-18); Calcium 9.9 mg/dl (8.5-10.1); Carbon Dioxide 15 mmol/L (21-32); Chloride 94 mmol/L (98-107); Est GFR (African American) 57.4; Est GFR (Non-African American) 49.6; Globulin 3.4 gm/dl (2.5-4.0); Glucose 641 mg/dl (70-99); Magnesium 2.3 mg/dl (1.8-2.4); Phosphorus 5.5 mg/dl (2.5-4.9); Potassium 5.7 mmol/L (3.5-5.1); Sodium 127 mmol/L (136-145); Troponin I 0.027 ng/ml (0-0.045)
[2020-05-21 21:29] LABS: Basophils # (auto) 0.02 K/uL (0-0.2); Basophils % (auto) 0.1 %; Echinocytes 1+; Hematocrit (blood only) 39.2 % (37-47); Hemoglobin 13.1 g/dL (12.0-16.0); Immature Granulocytes # (auto) 0.11 K/uL (0.00-0.02); Immature Granulocytes % (auto) 0.4 %; Lymphocytes # (auto) 1.83 K/uL (1.2-3.4); Lymphocytes % (auto) 7.3 %; Mean Corpuscular Hemoglobin 28.7 pg (25-34); Mean Corpuscular Hgb Conc 33.4 g/dL (32-36); Mean Corpuscular Volume 85.8 fL (80-100); Monocytes # (auto) 1.55 K/uL (0.11-0.59); Monocytes % (auto) 6.2 %; Neutrophils # (auto) 21.66 K/uL (1.4-6.5); Platelet Count 240 K/uL (130-400); RDW Coefficient of Variation 12.8 % (11.5-14.5); RDW Standard Deviation 40.4 fL (36.4-46.3); Red Blood Count 4.57 M/uL (4.2-5.4); White Blood Count 25.17 K/uL (4.8-10.8)
[2020-05-21] MEDS: SODIUM CHLORIDE 0.9% 1000ML 1,000 ML IV SCH (21:50)
[2020-05-21] MEDS ORDERED: ONDANSETRON INJ 2 MG/ML 2 ML VIAL IV STA (22:47)
[2020-05-21] MEDS ORDERED: INSULIN REGULAR 250 UNITS in SODIUM CHLORIDE 0.9% 247.5 ML IV SCH (23:30)
[2020-05-22] MEDS ORDERED: HYDROCODONE/ACETAMINOPHEN 7.5/325MG TAB PO PRN (01:47)
[2020-05-22] MEDS ORDERED: INSULIN ASPART PER UNIT SQ SCH (01:47)
[2020-05-22] MEDS ORDERED: NON-FORMULARY MEDICATION (Acetaminophen [Tylenol Arthritis Pain] 650 MG) PO PRN (01:47)
[2020-05-22] MEDS ORDERED: ALUMINUM/MAGNESIUM SUSP 30 ML UDC PO PRN (01:47)
[2020-05-22] MEDS ORDERED: D5NSS + 20MEQ KCL 20 MEQ/1,000 ML BAG IV PRN (01:47)
[2020-05-22] MEDS ORDERED: MAGNESIUM HYDROXIDE SUSP 30 ML UDC PO PRN (01:47)
[2020-05-22] MEDS ORDERED: OXYCODONE HCL IR 5 MG TAB (IMMEDIATE RELEASE) PO PRN (02:14)
[2020-05-22] MEDS ORDERED: ONDANSETRON 4 MG OD TAB PO PRN (02:14)
[2020-05-22] MEDS: ACETAMINOPHEN 325 MG TAB PO PRN ×2 (02:18→10:15)
[2020-05-22] MEDS: ONDANSETRON INJ 2 MG/ML 2 ML VIAL IV PRN ×2 (02:19→10:16)
[2020-05-22] MEDS: SODIUM CHLORIDE 0.9% 1000ML 1,000 ML IV SCH ×2 (02:27→06:44)
[2020-05-22] MEDS ORDERED: CARBOHYDRATES FOR HYPOGLYCEMIA PO PRN (02:30)
[2020-05-22] MEDS ORDERED: GLUCAGON FOR INJ 1 MG VIAL SQ PRN (02:30)
[2020-05-22] MEDS ORDERED: DEXTROSE 50% 50 ML SYRINGE IV PRN (02:30)
[2020-05-22] MEDS ORDERED: GLUCOSE 40% GEL 15 GM TUBE PO PRN (02:30)
[2020-05-22] MEDS ORDERED: GLUCOSE 10 TABS/TUBE PO PRN (02:30)
[2020-05-22] MEDS ORDERED: INSULIN ASPART 100 UNITS/ML VIAL SC PRN (02:45)
[2020-05-22] MEDS: cefTRIAXone SODIUM 1,000 MG in DEXTROSE 5% 50 ML IV SCH (03:34)
--- NOTE | 2020-05-22 04:29 | History & Physical Report ---
Date of Service May 22, 2020 Assessment & Plan (1) DKA (diabetic ketoacidoses): Unclear etiology at this time. COVID-19 testing negative in the ED despite significant contacts. She did have some mild dysuria, but more likely related to concentrated urine and glucosuria. Admit to monitored bed. Patient will continue to use her own insulin pump, and will notify nurses of changes she is making. She received a total of 3 L normal saline in the ED. Continue normal saline at 200 mils per hour, and change to D5 normal saline with KCl 20 mEq at 200 mils per hour when blood sugar is less than 250. Endpoint will be neutralization of anion gap, which presently is 18 Present on Admission?: Yes (2) CAD (coronary artery disease): Continue propranolol and aspirin. Hold lisinopril Present on Admission?: Yes (3) Type 1 diabetes mellitus, uncontrolled: See above Present on Admission?: Yes (4) Hypertension: Hold lisinopril. 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 Primary Care Provider: Yaz Pantoja The patient is a 65-year-old female with a past medical history including RLS, vitamin D deficiency, CAD, hypothyroidism, diabetic retinopathy, diabetes mellitus type 1, hypertension, migraine and hyperlipidemia. She did undergo COVID-19 testing while in the ED, which was negative tonight. She reports that her blood sugars have been running into the 400s over the past 3 to 4 days, despite trying to correct with her insulin pump. She has had decreased oral intake, and was concerned that her symptoms as she is presenting today are similar to previous episodes of DKA. Work-up in the emergency department was significant for WBC 25.17 with left shift, sodium 127, potassium 5.7, bicarb 15, BUN 29, glucose 641 and phosphorus 5.5. She received a total of 3 L of normal saline, Toradol 15 mg IV, and Zofran 4 mg IV from the emergency department. She did report feeling somewhat improved following the IV fluids. Allergies Allergy/AdvReac Type Severity Reaction Status Date / Time Sulfa (Sulfonamide Allergy Intermediate HIVES Verified 05/21/20 21:17 Antibiotics) insulin glargine AdvReac Severe SEE COMMENT Verified 05/21/20 21:17 [From [facility] SoloStar U-300 Insulin] Home Medications Home Medications Medication Instructions Recorded Confirmed Type propranolol 80 mg PO QAM 02/09/19 05/21/20 History ropinirole 0.5 mg PO QAM 02/09/19 05/21/20 History rosuvastatin 40 mg PO QAM 02/09/19 05/21/20 History albuterol sulfate [Ventolin HFA] 2 puff INHALATION QID PRN 06/27/19 05/21/20 History lisinopril 5 mg PO QAM 06/27/19 05/21/20 History montelukast 10 mg PO QAM 06/27/19 05/21/20 History oxycodone 5 mg PO Q4H PRN #20 tab 07/01/19 05/21/20 Rx acetaminophen [Tylenol Arthritis 650 mg PO Q12H PRN 09/07/19 05/21/20 History Pain] aspirin 81 mg PO QAM 09/07/19 05/21/20 History ondansetron HCl [Zofran] 4 mg PO Q6H PRN #10 tab 09/07/19 05/21/20 Rx OneTouch Ultra Blue Test Strip #200 ea NS 01/12/20 03/16/20 Rx levothyroxine 137 mcg tablet 137 mcg PO DAILY #30 tab 04/03/20 05/21/20 Rx Novolog U-100 Insulin aspart 100 See Rx Instructions .ROUTE 04/26/20 05/21/20 Rx unit/mL subcutaneous solution .COMPLEX #30 ml NS cholecalciferol (vitamin D3) 50 mcg PO QAM 05/21/20 05/21/20 History [Vitamin D3] gabapentin 100 mg PO TID 05/21/20 05/21/20 History hydrocodone-acetaminophen 1 tab PO Q12H PRN 05/21/20 05/21/20 History Past Med/Surg History Medical History CAD (coronary artery disease) Diabetes 1.5, managed as type 1 Patient has an insulin pump Diabetic retinopathy associated with type 1 diabetes mellitus Hyperlipidemia Hypertension Hypothyroidism RLS (restless legs syndrome) Tobacco use disorder Type 1 diabetes mellitus, uncontrolled Vitamin D deficiency Surgical History History of cholecystectomy Family History Other No significant family history Social History Smoking Status: Current every day smoker Cigarettes Per Day: 6; Second Hand Exposure: No; Hx Alcohol Use: No Hx Substance Use: No Preferred Language: Slovak Communication Ability: Effective Visual Impairment: No Limitations Hearing Ability: Normal Database Designer Required: No Beliefs That Will Affect Care: None Current Living Situation: Family Current Living Situation Comment: son lives with her Other Information That Helps Us Care for You: Yes Feels Safe at Home: Yes Safety Concerns: Feels Safe At This Time Assistive Devices: Glasses Review of Systems Review of Systems: The patient denies chest pain, palpitations, shortness of breath, dyspnea on exertion, cough, lower extremity swelling, sore throat, fevers, chills, sweats, vomiting, diarrhea , constipation, abdominal pain, pelvic pain, blood in urine or stool, dysuria, urinary frequency or urgency, memory loss, loss of consciousness, rash, abnormal bruising or bleeding, imbalance, focal weakness, numbness or tingling in arms or legs, generalized arthralgias or myalgias, back or neck pain, or night sweats. The review of systems is otherwise negative other than for that already noted above, and at least 10 systems have been reviewed. Physical Exam Physical Exam: The patient is awake, alert and oriented 3, well developed and well nourished, normocephalic and atraumatic, lying in bed and in no acute distress. HEENT--PERRL, EOMI, mucous membranes and oropharynx very dry. Neck--supple. No JVD. No bruits. Thyroid normal, trachea midline, no adenopathy. Heart--normal S1 and S2. No murmurs, rubs or gallops. Lungs--clear bilaterally, no respiratory distress, no accessory muscle use. Abdomen--normal bowel sounds and soft. Nontender. Nondistended. Extremities--no cyanosis or clubbing. No edema. Dermatologic--normal skin turgor, normal color, no abnormal lymph nodes, no rash. Neurologic--cranial nerves II through XII grossly intact. Rheumatologic--normal range of motion. Psychiatric--normal affect. Results & Data Results & Data ([facility]) Vital Signs (Past 12 Hours) Vital Signs Temp Pulse Pulse Resp BP BP Pulse Ox 05/22/20 03:54 98.4 F 90 16 106/50 L 99 05/22/20 01:50 89 05/22/20 01:47 97.3 F L 96 H 20 134/72 98 05/22/20 01:27 88 18 127/44 L 96 05/22/20 00:02 94 H 18 131/50 L 98 05/21/20 22:30 88 24 122/56 L 99 05/21/20 22:00 90 21 146/65 H 98 05/21/20 21:53 97.7 F 05/21/20 21:31 89 24 125/55 L 97 05/21/20 21:30 93 H 20 94 05/21/20 21:00 89 16 127/56 L 96 05/21/20 20:48 89 22 97 05/21/20 20:47 88 20 125/58 L 97 05/21/20 20:46 91 H 24 05/21/20 20:00 89 17 98 05/21/20 19:42 86 21 134/64 97 05/21/20 18:47 92 H 20 101/64 100 Laboratory Results Laboratory Results WBC 25.17 K/uL (4.8-10.8) H 05/21/20 20:43 RBC 4.57 M/uL (4.2-5.4) 05/21/20 20:43 Hgb 13.1 g/dL (12.0-16.0) 05/21/20 20:43 Hct 39.2 % (37-47) 05/21/20 20:43 MCV 85.8 fL (80-100) 05/21/20 20:43 MCH 28.7 pg (25-34) 05/21/20 20:43 MCHC 33.4 g/dL (32-36) 05/21/20 20:43 RDW Std Deviation 40.4 fL (36.4-46.3) 05/21/20 20: RDW Coeff of Kandy 12.8 % (11.5-14.5) 05/21/20 20: Plt Count 240 K/uL (130-400) 05/21/20 20:43 MPV 12.0 fL (7.4-10.4) H 05/21/20 20:43 Immature Gran % (Auto) 0.4 % 05/21/20 20:43 Neut % (Auto) 86.0 % 05/21/20 20:43 Lymph % (Auto) 7.3 % 05/21/20 20:43 [place] % (Auto) 6.2 % 05/21/20 20: Eos % (Auto) 0.0 % 05/21/20 20: Baso % (Auto) 0.1 % 05/21/20 20:43 Neut # (Auto) 21.66 K/uL (1.4-6.5) H 05/21/20 20:43 Lymph # (Auto) 1.83 K/uL (1.2-3.4) 05/21/20 20:43 [place] # (Auto) 1.55 K/uL (0.11-0.59) H 05/21/20 20:43 Eos # (Auto) 0.00 K/uL (0-0.5) 05/21/20 20:43 Baso # (Auto) 0.02 K/uL (0-0.2) 05/21/20 20:43 Immature Gran # (Auto) 0.11 K/uL (0.00-0.02) H 05/21/20 20:43 Echinocytes 1+ 05/21/20 20:43 ABG pH 7.38 (7.35-7.45) 05/21/20 20:43 ABG pCO2 29 mmHg (35-46) L 05/21/20 20:43 ABG pO2 90 mmHg (80-95) 05/21/20 20:43 ABG HCO3 16 mmol/L (19-24) L 05/21/20 20:43 ABG O2 Saturation 96.7 % (90-95) H 05/21/20 20:43 ABG Base Excess -7.4 mEq/L (-9-1.8) 05/21/20 20:43 Shankar Test Pos (Pos) 05/21/20 20:43 Barometric Pressure 726.6 mm/Hg 05/21/20 20:43 Oxygen Given Room Air 05/21/20 20:43 Sodium 127 mmol/L (136-145) L 05/21/20 20:43 Potassium 5.7 mmol/L (3.5-5.1) H 05/21/20 20:43 Chloride 94 mmol/L (98-107) L 05/21/20 20:43 Carbon Dioxide 15 mmol/L (21-32) L 05/21/20 20:43 Anion Gap 18.0 (3-11) H 05/21/20 20:43 BUN 29 mg/dl (7-18) H 05/21/20 20:43 Creatinine 1.17 mg/dl (0.6-1.2) 05/21/20 20:43 Est Cr Clr Drug Dosing Not Reportable 05/21/20 20:43 Est GFR ( Amer) 57.4 05/21/20 20:43 Est GFR (Non-Af Amer) 49.6 05/21/20 20:43 BUN/Creatinine Ratio 25.0 (10-20) H 05/21/20 20:43 Glucose 641 mg/dl (70-99) H* 05/21/20 20:43 POC Glucose 424 mg/dl (70-99) H* 05/22/20 04:00 Calcium 9.9 mg/dl (8.5-10.1) 05/21/20 20:43 Phosphorus 5.5 mg/dl (2.5-4.9) H 05/21/20 20:43 Magnesium 2.3 mg/dl (1.8-2.4) 05/21/20 20:43 Total Bilirubin 0.7 mg/dl (0.2-1) 05/21/20 20:43 AST 25 U/L (15-37) 05/21/20 20:43 ALT 55 U/L (12-78) 05/21/20 20:43 Alkaline Phosphatase 124 U/L (45-117) H 05/21/20 20:43 Troponin I 0.027 ng/ml (0-0.045) 05/21/20 20:43 Total Protein 7.0 gm/dl (6.4-8.2) 05/21/20 20:43 Albumin 3.6 gm/dl (3.4-5.0) 05/21/20 20:43 Globulin 3.4 gm/dl (2.5-4.0) 05/21/20 20:43 Albumin/Globulin Ratio 1.0 (0.9-2) 05/21/20 20:43 Beta-Hydroxybutyric Acd mg/dl (0.2-2.81) 05/21/20 20:43 Specimen Hemolysis 05/21/20 20:43 Urine Color Yellow 05/21/20 20:20 Urine Appearance Clear (Clear) 05/21/20 20:20 Urine pH 5.0 (4.5-7.5) 05/21/20 20:20 Ur Specific [place] 1.033 (1.000-1.030) H 05/21/20 20:20 Urine Protein Negative (Negative) 05/21/20 20:20 Urine Glucose (UA) 3+ (Negative) H 05/21/20 20:20 Urine Ketones 1+ (Negative) H 05/21/20 20:20 Urine Blood Negative (Negative) 05/21/20 20:20 Urine Nitrite Negative (Negative) 05/21/20 20:20 Urine Bilirubin Negative (Negative) 05/21/20 20:20 Urine Urobilinogen Negative (Negative) 05/21/20 20:20 Ur Leukocyte Esterase Negative (Negative) 05/21/20 20:20 COVID-19 Eval Order Covid19 Done at [facility] 05/21/20 20:23 COVID-19 PCR NEGATIVE (Negative) 05/21/20 20:23 Diagnostic Findings [facility] [place] [phone] XRay Report Patient: THUAN ANGEL LAdclementina Date: 05/21/20 MR#: [id number] [address] YAY[address] GONSALEZ Acct ID:[id number]: Date: 1955[facility] [id number] Age: 65Location: ED Sex: FRoom/Bed: Att Phy:Diagnosis: EXPOSED TO COVID SOB COUGH Lori Phy: Yaz Pantoja CRNPService Date: 05/21/20 Fam Phy: Yaz Pantoja, CRROSETTAInterpreting Phy: Solitario Colon MD Admit Phy: Ordering Phy: Hiren Davis PA cc: ~ XR chest 1V portable CLINICAL HISTORY: COUGH, SOB COMPARISON STUDY: 11/10/2019 FINDINGS: The cardiac and mediastinal contours are normal. There is no evidence of focal pulmonary consolidation. There is no evidence of failure. No pleural effusions are visualized.[There is a stable calcified granuloma within the left midlung zone. IMPRESSION: No active disease in the chest. ACT 112: Negative or not required by law. Electronically signed by: Solitario Colon M.D. 05/21/2020 8:31 PM Dictated: 05/21/202029 Transcribed: 05/21/202029 Code Status & VTE Plan Code Status Full code VTE Prophylaxis Plan VTE Prophylaxis will be ordered: Yes PG Care Time/CCT Total # of Minutes Spent Total Time Spent with Patient: Total time spent is greater than 50% in coordination of care (as documented) at patient's floor/unit and/or counseling patient: Coding Level of Care Code 70946 Initial Inpt Care Lvl 3 Diagnoses DKA (diabetic ketoacidoses) E11.10 CAD (coronary artery disease) I25.10 Type 1 diabetes mellitus, uncontrolled E10.65 Hypertension I10 Hyperlipidemia E78.5 RLS (restless legs syndrome) G25.81 Hypothyroidism E03.9
[2020-05-22] MEDS: LEVOTHYROXINE SODIUM 137 MCG TABLET PO SCH (05:02)
[2020-05-22 05:13] LABS: Hematocrit (blood only) 35.4 % (37-47); Hemoglobin 11.8 g/dL (12.0-16.0); Mean Corpuscular Hemoglobin 28.6 pg (25-34); Mean Corpuscular Hgb Conc 33.3 g/dL (32-36); Mean Corpuscular Volume 85.9 fL (80-100); Platelet Count 235 K/uL (130-400); RDW Standard Deviation 40.9 fL (36.4-46.3); Red Blood Count 4.12 M/uL (4.2-5.4); White Blood Count 24.57 K/uL (4.8-10.8)
[2020-05-22 05:26] LABS: Prothrombin Time 10.2 Seconds (9.0-12.0)
[2020-05-22 05:30] LABS: Basophils # (auto) 0.02 K/uL (0-0.2); Basophils % (auto) 0.1 %; Echinocytes 1+; Immature Granulocytes # (auto) 0.15 K/uL (0.00-0.02); Immature Granulocytes % (auto) 0.6 %; Lymphocytes # (auto) 2.34 K/uL (1.2-3.4); Lymphocytes % (auto) 9.5 %; Monocytes # (auto) 1.44 K/uL (0.11-0.59); Monocytes % (auto) 5.9 %; Neutrophils # (auto) 20.62 K/uL (1.4-6.5); Neutrophils % (auto) 83.9 %
[2020-05-22 05:39] LABS: BUN Creatinine Ratio 27.1 (10-20); Calcium 8.8 mg/dl (8.5-10.1); Creatinine Clr Calc Pharmacy 49.7 ml/min; Est GFR (African American) 69.4; Est GFR (Non-African American) 59.9; Phosphorus 5.1 mg/dl (2.5-4.9)
[2020-05-22 06:33] LABS: Beta-Hydroxybutyrate 57.75 mg/dl (0.2-2.81)
[2020-05-22] MEDS ORDERED: INSULIN ASPART 100 UNITS/ML 3 ML PEN SC SCH (07:30)
[2020-05-22] MEDS ORDERED: DKA GOAL RANGE 150-250 mg/dl ONE (08:20)
[2020-05-22] MEDS ORDERED: INSULIN REGULAR 250 UNITS in SODIUM CHLORIDE 0.9% 247.5 ML IV SCH (08:30)
[2020-05-22] MEDS ORDERED: PHARMACY GLYCEMIC MGMT CONSULT PRN (08:33)
[2020-05-22] MEDS ORDERED: INSULIN HUMAN REGULAR IV BOLUS 6 UNITS in SYRINGE 0 ML IV ONE (08:45)
[2020-05-22] MEDS ORDERED: LACTATED RINGER'S 1,000 ML IV SCH (08:45)
[2020-05-22] MEDS ORDERED: [UNRECOGNIZED DRUG - REMARK] ONE (08:45)
[2020-05-22] MEDS: NovoLOG INSULIN PUMP SCH (08:45)
[2020-05-22 09:18] LABS: BUN Creatinine Ratio 27.3 (10-20); Calcium 9.2 mg/dl (8.5-10.1); Creatinine Clr Calc Pharmacy 47.8 ml/min; Est GFR (African American) 66.2; Est GFR (Non-African American) 57.1; Magnesium 2.3 mg/dl (1.8-2.4); Phosphorus 4.7 mg/dl (2.5-4.9); Potassium 5.6 mmol/L (3.5-5.1)
[2020-05-22] MEDS ORDERED: ACETAMINOPHEN 325 MG TAB PO PRN (09:34)
[2020-05-22] MEDS ORDERED: ONDANSETRON INJ 2 MG/ML 2 ML VIAL IV PRN (09:34)
--- NOTE | 2020-05-22 09:39 | Medical Student Progress Note ---
Date of Service May 22, 2020 Assessment & Plan (1) DKA (diabetic ketoacidoses): Patient is a 65 y/o F with pmh of diabetes 1/2 diagnosed at 58 y/o and DKA episode 4 years ago presenting with 3 days of nausea, polydipsia, polyuria consistent with DKA as well as cough and SOB with negative rapid COVID-19 swab. Patient was managed by her own insulin pump overnight. Switched to IV insulin 250 units Q24 this morning with a BSG goal of 150-250. Will keep her on insulin drip overnight to establish baseline for new insulin pump setting in the morning. Bicarb 16 on admission, new bicarb pending this morning. Anion gap increased from 18 on admission to 21 this morning. CO2 from 15 to 9. ABG pH on admission was 7.35, VBG pH this morning 7.23. Potassium this morning is 135 but corrected for hyperglycemia is 140-143. Switched from normal saline to LR. DKA could have been precipitated by infection over the weekend and poorly calibrated insulin pump with kinked tubing. No recent surgeries. Recent COVID-19 exposure may be a significant stressor. 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 Managed with insulin pump novolog U-100 insulin aspart 100unit/mL. Check pump calibration and cord, educate patient on insulin use and pump maintenance. Will check overnight IV insulin drip to establish new baseline dose in the morning. Present on Admission?: Yes Admission and Anticipated Discharge Date Admission Date: May 22, 2020 Supervising Attestation I personally examined the patient and verified all martinez points of history and exam, discussed case, and agree with decision making with Sammi Joyce MS2 as above Subjective Patient is not feeling any better than at her admission last night. Still endorses nausea, headache, dehydration, dry mouth, confusion, unstable gait, polydipsia and polyuria. Still has some cough, SOB, and weakness. No vomiting, chest pain, palpitations. Review of Systems Constitutional: + fatigue and + weakness Ear, Nose, Mouth, Throat: + dry mouth Respiratory: + cough and + dyspnea Cardiovascular: no chest pain and no edema Gastrointestinal: + nausea Neurologic: + headache(s) Endocrine: + polydipsia and + polyuria Physical Exam Constitutional: + ill appearing Respiratory: + cough Auscultation: lungs clear to auscultation bilaterally; no crackles Cardiovascular: RRR, no murmur, no edema Heart Sounds: normal S1 and normal S2 Gastrointestinal (Abdomen): normal bowel sounds, soft, nontender, no hepatosplenomegaly Psychiatric: Orientation: alert and oriented x 3 Results & Data ([facility]) Vital Signs (Past 12 Hours) Vital Signs Temp Pulse Pulse Resp BP BP Pulse Ox 05/22/20 07:03 36.8 C 90 16 132/70 98 05/22/20 03:54 36.9 C 90 16 106/50 L 99 05/22/20 01:50 89 05/22/20 01:47 36.3 C L 96 H 20 134/72 98 05/22/20 01:27 88 18 127/44 L 96 05/22/20 00:02 94 H 18 131/50 L 98 05/21/20 22:30 88 24 122/56 L 99 05/21/20 22:00 90 21 146/65 H 98 05/21/20 21:53 36.5 C 05/21/20 21:31 89 24 125/55 L 97 05/21/20 21:30 93 H 20 94
--- NOTE | 2020-05-22 10:14 | Pharmacy Report ---
Glycemic Control Consultation - Date of Service May 22, 2020 - Scope Scope: Glycemic Pharmacist consulted for glycemic control and to write orders per [facility] inpatient glycemic control protocol. - Objective Weight: 65.1 kg [place]ks BSG (last 24hrs): 05/21/20 05/21/20 05/21/20 18:49 20:43 23:08 Glucose 641 H* POC Glucose > 600 H* 491 H* 05/21/20 05/22/20 05/22/20 23:08 01:36 01:37 Glucose POC Glucose 467 H* 426 H* 421 H* 05/22/20 05/22/20 05/22/20 03:07 03:10 03:56 Glucose POC Glucose 391 H* 405 H* 427 H* 05/22/20 05/22/20 05/22/20 04:00 04:39 04:52 Glucose 407 H* POC Glucose 424 H* 409 H* 05/22/20 05/22/20 05/22/20 04:54 05:51 05:52 Glucose POC Glucose 418 H* 417 H* 411 H* 05/22/20 05/22/20 05/22/20 07:00 07:01 08:01 Glucose POC Glucose 412 H* 371 H* 414 H* 05/22/20 05/22/20 08:35 09:57 Glucose 415 H* POC Glucose 362 H* Laboratory Data (last 24hrs): 05/21/20 05/22/20 05/22/20 20:43 04:39 08:35 Potassium 5.7 H 5.0 5.6 H Carbon Dioxide 15 L 12 L 9 L* Anion Gap 18.0 H 19.0 H 21.0 H Creatinine 1.17 1.00 1.04 Est Cr Clr Drug Dosing Not Reportable 49.7 47.8 Beta-Hydroxybutyric Acd 57.75 H - Recent Pertinent Medications Outpatient Anti-diabetic Regimen: * Novolog pump * A1c outdated, but was elevated to 10.1% in December 2019. Repeat ordered for tomorrow. 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 Per H&P, she reported that her blood sugars have been running into the 400s over the past 3 to 4 days, despite trying to correct with her insulin pump. I spoke w Dr. Porter who is concerned for pump malfunction (pump error vs. user error possible). * Anion gap and CO2 worsening today - will stop pump and instead utilize insulin drip * Fluids currently appropriate, with pending orders to add in dextrose and potassium based on lab values * Lantus allergy noted - unclear if this is a true allergy or an intolerance. Anticipate eventual transition off drip either with Levemir or with patient's own pump (if determined OK to use) PLAN FOR INPATIENT GLYCEMIC CONTROL: * Starting IV insulin infusion per DKA protocol * Goal Range 150 - 250 mg/dl * Insulin drip will need to remain active at least until anion gap is 12 or lower and CO2 is 15 or higher. After that point, transition off drip may be considered. * Bolus insulin * NovoLog ACHS * Nutritional / Prandial insulin with carb ratio determined by insulin drip calculator * Please note that the plan above was derived based on current level of insulin resistance and hospital stress. These recommendations are appropriate for inpatient admission only. Plan of care upon discharge will need to be reassessed to avoid potential outpatient hypo/hyperglycemia. Thank you.
[2020-05-22] MEDS: CHOLECALCIFEROL 1,000 UNITS 25 MCG TAB PO SCH (10:17)
[2020-05-22] MEDS: ROPINIROLE HCL 0.25 MG TABLET PO SCH (10:17)
[2020-05-22] MEDS: ASPIRIN 81 MG ECTAB PO SCH (10:18)
[2020-05-22] MEDS: GABAPENTIN 100 MG CAP PO SCH ×3 (10:18→21:38)
[2020-05-22] MEDS: ROSUVASTATIN CALCIUM 20 MG TAB PO SCH (10:18)
[2020-05-22] MEDS: PROPRANOLOL HCL LA 80 MG CAPCR PO SCH (10:18)
[2020-05-22] MEDS: MONTELUKAST SODIUM 10 MG TABLET PO SCH (10:19)
[2020-05-22] MEDS: ENOXAPARIN INJ 40 MG/0.4 ML SYR SQ SCH (10:19)
[2020-05-22 10:21] LABS: Beta-Hydroxybutyrate 65.9 mg/dl (0.2-2.81)
[2020-05-22] MEDS: NORMOSOL-R 1,000 ML IV SCH ×2 (10:23→16:10)
[2020-05-22] MEDS ORDERED: Nursing to Pharmacy Communication SCH ×3 (12:00→15:30)
[2020-05-22] MEDS: PENDING 1/2NSS+40mEq KCL IVF SCH ×3 (12:29→15:15)
[2020-05-22] MEDS: PENDING D5 1/2NS+20mEq KCL IVF SCH ×2 (12:30→15:15)
[2020-05-22] MEDS: INSULIN ASPART 100 UNITS/ML 3 ML PEN SC SCH ×3 (12:54→21:04)
[2020-05-22 14:09] LABS: Potassium 4.3 mmol/L (3.5-5.1)
[2020-05-22 14:10] LABS: BUN Creatinine Ratio 25.9 (10-20); Calcium 8.3 mg/dl (8.5-10.1); Creatinine Clr Calc Pharmacy 48.3 ml/min; Est GFR (Non-African American) 57.8; Magnesium 2.3 mg/dl (1.8-2.4); Phosphorus 2.6 mg/dl (2.5-4.9)
[2020-05-22] MEDS ORDERED: D5W AND 1/2NSS + 30MEQ KCL 30 MEQ/1,000 ML BAG IV SCH (15:45)
[2020-05-22] MEDS: D5W AND 1/2NSS + 20MEQ KCL 20 MEQ/1,000 ML BAG IV SCH ×2 (16:30→21:38)
[2020-05-22 16:44] LABS: BUN Creatinine Ratio 26.1 (10-20); Calcium 8.8 mg/dl (8.5-10.1); Creatinine Clr Calc Pharmacy 47.4 ml/min; Est GFR (African American) 65.5; Est GFR (Non-African American) 56.5; Magnesium 2.3 mg/dl (1.8-2.4); Phosphorus 2.3 mg/dl (2.5-4.9); Potassium 4.3 mmol/L (3.5-5.1)
--- NOTE | 2020-05-22 19:38 | Hospitalist Progress Note ---
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 She has been hemodynamically stable throughout her stay. Diabetic Ketoacidosis - Clinically, patient reports several days of fatigue, cough, dyspnea, nausea, myalgias, polydipsia, and polyuria with an inability to control home BS (in the 400s) with insulin pump - Upon being triaged here, was found to have an anion-gap acidosis with BS > 600, alongside serologic hyperkalemia at 5.7 -- consistent with DKA - Trigger likely relates to recent respiratory/gastrointestinal illness given patient's reported symptoms alongside ?pump/user error -- correlates with leukocytosis (WBC 25) w/ left shift discovered at admission - CXR was not suggestive of acute pathology - EKG did not demonstrate any new arrhythmias or ST-T abnormalities - Insulin gtt through today -- demonstrated marked improvement from last night from a laboratory perspective, showing bicarb at 16 (from 9), AG at 10 (from 21), BS at 148 (from 640), pH (VBG) 7.37 (from 7.23) - Continue insulin gtt through [facility] to establish new baselines for patient and aid in establishing care plan for outpatient setting - Continue maintenance fluids -- 1/2NS+D5W w/ K 20mEq @ 200cc/hr - Anticipate transitioning back to pump tomorrow with aid of pharmacy, diabetic education - BMP, VBG, phosphorus qAM Leukocytosis with Left Shift -- Unclear Etiology - As above -- pt reports several days of fatigue, cough, dyspnea, nausea, myalgias alongside polydipsia / polyuria, possibly representing infectious/inflammatory symptoms alongside DKA - CXR negative - Unclear etiology at this time -- while it's possible that some of the leukocytosis may be reactive in setting of DKA, the WBC of 25 with left shift is concerning for infectious contribution - COVID negative - Procalc 0.27 - UA significant for glucose, ketones, no infectious findings - Will continue ceftriaxone IV for now - CBC qAM - Re-evaluate clinically in AM Chronic Medical Problems - CAD: Continue propranolol, ASA - HTN: Hold lisinopril - HLD: Continue rosuvastatin 40mg PO daily - RLS: Continue ropinirole - Hypothyroidism: Continue Synthroid 137mcg PO daily -- TSH low at 0.08 upon arrival, consider rechecking once DKA under control Dispo: Med/surg F/E/N: DM1 Diet, mIVF(1/2NS+D5W w/ K 20mEq @ 200cc/hr) PPX: pLov Code: FULL CODE (2) Tobacco use disorder: (3) RLS (restless legs syndrome): (4) Vitamin D deficiency: (5) CAD (coronary artery disease): (6) Hypothyroidism: (7) Diabetic retinopathy associated with type 1 diabetes mellitus: (8) Type 1 diabetes mellitus, uncontrolled: (9) Hypertension: (10) Migraine: (11) Hyperlipidemia: Admission and Anticipated Discharge Date Admission Date: May 22, 2020 Supervising Physician Co-Signing Physician Notes I personally examined the patient and verified all martinez points of history and exam, discussed case, and agree with decision making with Dr Wallace feeling bad still - aches and headaches. poor appetite covid was negative vitals noted fatigued appearing heent nc at mmm breathing unlabored no accessory muscles good effort skin no rashes no pallor or icterus msk/ost - R>L suboccipitals high tone/tender/decreased ROM - inhibitory pressure - improved. pt tolerated well adn noted improvement in headache viral illness - covid negative, fits profile for virus prevalent in community. supportive care. given WBC so markedly high, agree empiric abx at least until serial exams and time are allowed to more definitively r/o bacterial DKA - poor baseline control + physiologic stress. IVF, IV insulin. once feeling better will want to educate headache - suboccipital tension Cspine somatic dysfunction - OMT as above otherwise as above Subjective Since admission earlier in the evening, patient remained on their insulin pump. This morning, reported that she felt "awful" -- endorsed full body aches, nausea, loss of appetite, and extreme fatigue. Endorses a headache. No chest pain, palpitations, or shortness of breath. On clarification of her history, she did note that her BS have been running in the 400 over the last 3-4 days -- which is much higher than usual for her, and remained in that range despite attempting to correct. She also endorses developing a cough, shortness of breath for the last 2 days, as well as severe nausea. While she denies chills, she does note having a fever measuring up to 100F yesterday. 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 Denied chest pain or palpitations. COVID negative in the ED. Review of Systems Constitutional: + body aches and + fatigue; no fever and no chills Respiratory: + cough; no dyspnea Cardiovascular: no chest pain and no palpitations Gastrointestinal: + abdominal pain and + nausea Genitourinary: + urinary frequency Psychiatric: as per Subjective / HPI Endocrine: + polyuria Physical Exam Constitutional: Ill and tired appearing 65-year-old female who is lying back in her hospital bed, asleep at the time of my entry. Upon waking, she is alert and oriented throughout her discussion. She reports significant pain throughout her body, and general feelings of discomfort. Respiratory: Good respiratory effort with symmetric expansion of the chest. She is mildly tachypneic. Lungs were clear to auscultation bilaterally without any crackles or wheezes. Cardiovascular: Normal rate and regular rhythm. S1 and S2 are present without any murmurs rubs or gallops. Gastrointestinal (Abdomen): Normoactive bowel sounds. Abdomen soft, nontender, nondistended to palpation. No appreciable organomegaly. Results & Data Results & Data ([facility] [place]) Vital Signs (Past 12 Hours) Vital Signs Temp Pulse Pulse Resp BP Pulse Ox 05/22/20 15:48 37.5 C 84 18 101/61 99 05/22/20 12:36 93 H 05/22/20 12:00 37.2 C 83 20 107/63 99 Resident Activity Tracking Resident Involvement: Resident Care Provided Care Provided: Adult Hospital Medicine
--- NOTE | 2020-05-22 19:54 | Billing Data ---
Date of Service May 22, 2020 Coding Level of Care Code 77782 Subseq Hosp Care Lvl 3
--- NOTE | 2020-05-22 19:55 | Hospitalist Progress Note ---
Date of Service May 22, 2020 Assessment & Plan Admission and Anticipated Discharge Date Admission Date: May 22, 2020 Results & Data Results & Data ([facility]) Vital Signs (Past 12 Hours) Vital Signs Temp Pulse Pulse Resp BP BP Pulse Ox 05/22/20 19:43 98.4 F 80 14 99/61 L 86/50 L 96 05/22/20 15:48 99.5 F 84 18 101/61 99 05/22/20 12:36 93 H 05/22/20 12:00 99.0 F 83 20 107/63 99 PG Care Time/CCT Total # of Minutes Spent Total Time Spent with Patient: Total time spent is greater than 50% in coordination of care (as documented) at patient's floor/unit and/or counseling patient: Coding Level of Care Code None CPT Codes Musculoskeletal - Musculoskeletal: 759[address] Tr 1-2 Body regions ([id number])
[2020-05-22 21:14] LABS: BUN Creatinine Ratio 19.1 (10-20); Creatinine Clr Calc Pharmacy 38.5 ml/min; Magnesium 2.4 mg/dl (1.8-2.4); Phosphorus 2.1 mg/dl (2.5-4.9); Potassium 4.1 mmol/L (3.5-5.1)
--- NOTE | 2020-05-22 22:20 | Electrocardiogram Report ---
Test Reason : Blood Pressure : / mmHG Vent. Rate : 082 BPM Atrial Rate : 082 BPM P-R Int : 126 ms QRS Dur : 088 ms QT Int : 366 ms P-R-T Axes : 060 040 038 degrees QTc Int : 427 ms Normal sinus rhythm Normal ECG When compared with ECG of 27-JUN-2019 17:25, Nonspecific T wave abnormality no longer evident in Inferior leads T wave amplitude has increased in Anterolateral leads Confirmed by James Barbosa ([id number]) on 05/22/2020 10:19:46 PM Referred By: REFERRED SELF Confirmed By:James Barbosa
[2020-05-23] MEDS: ALBUMIN 25% 50 ML IV SCH ×2 (00:34→01:19)
[2020-05-23 00:41] LABS: Alanine Aminotransferase 33 U/L (12-78); Albumin Level 2.3 gm/dl (3.4-5.0); Aspartate Aminotransferase 16 U/L (15-37); BUN Creatinine Ratio 20.4 (10-20); Bilirubin Direct < 0.1 mg/dl (0-0.2); Blood Urea Nitrogen 22 mg/dl (7-18); Calcium 8.1 mg/dl (8.5-10.1); Carbon Dioxide 21 mmol/L (21-32); Chloride 114 mmol/L (98-107); Est GFR (African American) 63.3; Est GFR (Non-African American) 54.6; Glucose 154 mg/dl (70-99); Magnesium 2.3 mg/dl (1.8-2.4); Potassium 4.2 mmol/L (3.5-5.1); Sodium 140 mmol/L (136-145)
[2020-05-23 00:47] LABS: Alkaline Phosphatase 76 U/L (45-117); Bilirubin,Total 0.2 mg/dl (0.2-1); Phosphorus 2.1 mg/dl (2.5-4.9); Total Protein 4.7 gm/dl (6.4-8.2)
[2020-05-23] MEDS: cefTRIAXone SODIUM 1,000 MG in DEXTROSE 5% 50 ML IV SCH (02:15)
[2020-05-23] MEDS: D5W AND 1/2NSS + 20MEQ KCL 20 MEQ/1,000 ML BAG IV SCH ×6 (02:57→23:07)
[2020-05-23 04:54] LABS: Magnesium 2.2 mg/dl (1.8-2.4); Phosphorus 1.6 mg/dl (2.5-4.9)
[2020-05-23 05:37] LABS: Hematocrit (blood only) 29.3 % (37-47); Hemoglobin 9.9 g/dL (12.0-16.0); Immature Granulocytes # (auto) 0.03 K/uL (0.00-0.02); Immature Granulocytes % (auto) 0.2 %; Lymphocytes # (auto) 2.89 K/uL (1.2-3.4); Lymphocytes % (auto) 20.4 %; Mean Corpuscular Hemoglobin 29.1 pg (25-34); Mean Corpuscular Hgb Conc 33.8 g/dL (32-36); Mean Corpuscular Volume 86.2 fL (80-100); Mean Platelet Volume 10.3 fL (7.4-10.4); Monocytes # (auto) 0.62 K/uL (0.11-0.59); Monocytes % (auto) 4.4 %; Neutrophils # (auto) 10.66 K/uL (1.4-6.5); Platelet Count 165 K/uL (130-400); RDW Coefficient of Variation 13.6 % (11.5-14.5); RDW Standard Deviation 42.8 fL (36.4-46.3)
[2020-05-23 06:04] LABS: Estimated Average Glucose 269 mg/dl
[2020-05-23] MEDS ORDERED: POTASSIUM PHOS 3 MMOL/1 ML INFUSION IV STA (06:13)
[2020-05-23] MEDS: LEVOTHYROXINE SODIUM 137 MCG TABLET PO SCH (06:34)
[2020-05-23] MEDS ORDERED: POTASSIUM PHOSPHATE 21 MMOL in SODIUM CHLORIDE 0.9% 500 ML IV ONE (06:45)
[2020-05-23] MEDS: ASPIRIN 81 MG ECTAB PO SCH (07:53)
[2020-05-23] MEDS: ROPINIROLE HCL 0.25 MG TABLET PO SCH (07:53)
[2020-05-23] MEDS: CHOLECALCIFEROL 1,000 UNITS 25 MCG TAB PO SCH (07:53)
[2020-05-23] MEDS: ROSUVASTATIN CALCIUM 20 MG TAB PO SCH (07:53)
[2020-05-23] MEDS: PROPRANOLOL HCL LA 80 MG CAPCR PO SCH ×2 (07:53→09:59)
[2020-05-23] MEDS: MONTELUKAST SODIUM 10 MG TABLET PO SCH (07:54)
[2020-05-23] MEDS: GABAPENTIN 100 MG CAP PO SCH ×3 (07:54→20:16)
[2020-05-23] MEDS: INSULIN ASPART 100 UNITS/ML 3 ML PEN SC SCH ×2 (09:59→12:39)
[2020-05-23] MEDS: ENOXAPARIN INJ 40 MG/0.4 ML SYR SQ SCH (10:00)
[2020-05-23] MEDS ORDERED: INSULIN REGULAR 250 UNITS in SODIUM CHLORIDE 0.9% 247.5 ML IV SCH (13:45)
--- NOTE | 2020-05-23 18:23 | Hospitalist Progress Note ---
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 mechanical error) alongside possible recent illness. She has been hemodynamically stable throughout her stay. Diabetic Ketoacidosis - Clinically, patient reports several days of fatigue, cough, dyspnea, nausea, myalgias, polydipsia, and polyuria with an inability to control home BS (in the 400s) with insulin pump - Upon being triaged here, was found to have an anion-gap acidosis with BS > 600, alongside serologic hyperkalemia at 5.7 -- consistent with DKA - Trigger likely relates to recent respiratory/gastrointestinal illness given patient's reported symptoms alongside ?pump/user error -- correlates with initial leukocytosis (WBC 25) w/ left shift discovered at admission - CXR was not suggestive of acute pathology - EKG did not demonstrate any new arrhythmias or ST-T abnormalities - Insulin gtt through today -- demonstrated marked improvement from last night from a laboratory perspective, showing bicarb at 21 (from 9), AG at 6 (from 21), pH (VBG) 7.40 (from 7.23) - Stayed on insulin drip throughout today -- awaiting to bring in insertion device for attempt to reinsert pump, then attempt to transition back to that to test for pump function, error, etc. - Continue insulin drip overnight - Continue maintenance fluids -- 1/2NS+D5W w/ K 20mEq @ 200cc/hr - Diabetic education spoke with patient today to discuss disease process, pump function + specifics, etc. - BMP, VBG, phosphorus qAM Leukocytosis with Left Shift -- Unclear Etiology, Improving - As above -- pt reports several days of fatigue, cough, dyspnea, nausea, myalgias alongside polydipsia / polyuria, possibly representing infectious/inflammatory symptoms alongside DKA - CXR negative - Unclear etiology at this time -- while it's possible that some of the leukocytosis may be reactive in setting of DKA, initial WBC of 25 with left shift is concerning for infectious contribution - COVID negative - Procalc 0.27 - UA significant for glucose, ketones, no infectious findings - Will continue ceftriaxone IV for now - WBC 14.2 today -- much improved from previous days alongside clinical reports of her feeling better - CBC qAM - Re-evaluate clinically in AM Chronic Medical Problems - CAD: Continue propranolol, ASA - HTN: Hold lisinopril - HLD: Continue rosuvastatin 40mg PO daily - RLS: Continue ropinirole - Hypothyroidism: Continue Synthroid 137mcg PO daily -- TSH low at 0.08 upon arrival, consider rechecking once DKA under control Dispo: Med/surg F/E/N: DM1 Diet, mIVF(1/2NS+D5W w/ K 20mEq @ 200cc/hr) PPX: pLov Code: FULL CODE (2) Tobacco use disorder: (3) RLS (restless legs syndrome): (4) Vitamin D deficiency: (5) CAD (coronary artery disease): (6) Hypothyroidism: (7) Diabetic retinopathy associated with type 1 diabetes mellitus: (8) Type 1 diabetes mellitus, uncontrolled: (9) Hypertension: (10) Migraine: (11) Hyperlipidemia: Admission and Anticipated Discharge Date Admission Date: May 22, 2020 Supervising Physician Co-Signing Physician Notes I personally examined the patient and verified all martinez points of history and exam, discussed case, and agree with decision making with Dr Wallace feeling better. did have good understnading of complications of DM, but did not have good understnading of how they occur. also did not seem to have good understanidn of how to "grade her work" as far as checking to ensure adeaqute insulin dosing. vitals noted fatigued appearing heent nc at mmm breathing unlabored no accessory muscles good effort skin no rashes no pallor or icterus viral illness - covid negative, fits profile for virus prevalent in community. supportive care. given WBC were so markedly high, agree empiric abx at least until serial exams and time are allowed to more definitively r/o bacterial (more reassuring today) DKA - poor baseline control + physiologic stress. IVF, IV insulin. ongoing education. transition to her pump, restart SQ basal bolus headache - suboccipital tension - seems to have improved otherwise as above Subjective Overnight, patient did get hypotensive down into the high 70s/ 50s. Received fluid bolus, and subsequently showed improvement into the 90s/50s. No other acute events overnight. At the bedside this morning, she does report feeling well and much better when compared to yesterday. She still continues to endorse a headache with mild blurry vision, but no double vision, weakness, or numbness or tingling anywhere. Further, she says her body aches have resolved that she is no longer experiencing nausea. She denies any chest pains, palpitations, shortness of breath. Review of Systems Constitutional: as per Subjective / HPI and + fatigue; no body aches Respiratory: no cough and no dyspnea Cardiovascular: no chest pain and no palpitations Gastrointestinal: no abdominal pain, no nausea and no vomiting Endocrine: + fatigue Physical Exam Constitutional: Tired appearing 65-year-old female who is lying back in her hospital bed, just awakened from sleep prior to my arrival. Compared to yesterday, she does appear less ill. She is alert and oriented throughout her discussion and speaks in full sentences. No acute distress. Respiratory: Good respiratory effort with symmetric expansion of the chest. Lungs were clear to auscultation bilaterally without any crackles or wheezes. Cardiovascular: Normal rate and regular rhythm, S1 and S2 are present without any murmurs rubs or gallops. No peripheral edema appreciated lower extremities bilaterally. Gastrointestinal (Abdomen): Normal active bowel sounds. Abdomen was soft, nontender, nondistended to palpation without any appreciable organomegaly. Results & Data Results & Data ([facility]) Vital Signs (Past 12 Hours) Vital Signs Temp Pulse Pulse Resp BP Pulse Ox 05/23/20 15:20 36.8 C 75 19 110/65 97 05/23/20 15:00 74 05/23/20 11:09 36.9 C 74 16 95/61 L 98 05/23/20 08:00 68 05/23/20 07:53 36.9 C 57 L 18 91/57 L 97 Resident Activity Tracking Resident Involvement: Resident Care Provided Care Provided: Adult [facility] Medicine
--- NOTE | 2020-05-23 19:12 | Billing Data ---
Date of Service May 23, 2020 Coding Level of Care Code 01421 Subseq Hosp Care Lvl 3
[2020-05-23] MEDS: ACETAMINOPHEN 325 MG TAB PO PRN (20:19)
[2020-05-24] MEDS: ACETAMINOPHEN 325 MG TAB PO PRN ×3 (01:07→12:00)
[2020-05-24] MEDS: LEVOTHYROXINE SODIUM 137 MCG TABLET PO SCH (05:26)
[2020-05-24] MEDS: D5W AND 1/2NSS + 20MEQ KCL 20 MEQ/1,000 ML BAG IV SCH (05:27)
[2020-05-24 08:11] LABS: Basophils # (auto) 0.02 K/uL (0-0.2); Basophils % (auto) 0.2 %; Hematocrit (blood only) 32.2 % (37-47); Hemoglobin 10.7 g/dL (12.0-16.0); Immature Granulocytes # (auto) 0.01 K/uL (0.00-0.02); Immature Granulocytes % (auto) 0.1 %; Lymphocytes % (auto) 20.9 %; Mean Corpuscular Hemoglobin 28.7 pg (25-34); Mean Corpuscular Hgb Conc 33.2 g/dL (32-36); Mean Corpuscular Volume 86.3 fL (80-100); Mean Platelet Volume 10.9 fL (7.4-10.4); Monocytes # (auto) 0.39 K/uL (0.11-0.59); Monocytes % (auto) 4.5 %; Neutrophils # (auto) 6.41 K/uL (1.4-6.5); Neutrophils % (auto) 74.3 %; Platelet Count 151 K/uL (130-400); RDW Coefficient of Variation 13.6 % (11.5-14.5); Red Blood Count 3.73 M/uL (4.2-5.4); White Blood Count 8.63 K/uL (4.8-10.8)
[2020-05-24] MEDS: ENOXAPARIN INJ 40 MG/0.4 ML SYR SQ SCH (08:23)
[2020-05-24] MEDS: GABAPENTIN 100 MG CAP PO SCH ×3 (08:23→20:58)
[2020-05-24] MEDS: ASPIRIN 81 MG ECTAB PO SCH (08:23)
[2020-05-24] MEDS: ROSUVASTATIN CALCIUM 20 MG TAB PO SCH (08:23)
[2020-05-24] MEDS: MONTELUKAST SODIUM 10 MG TABLET PO SCH (08:23)
[2020-05-24] MEDS: CHOLECALCIFEROL 1,000 UNITS 25 MCG TAB PO SCH (08:23)
[2020-05-24] MEDS: PROPRANOLOL HCL LA 80 MG CAPCR PO SCH (08:23)
[2020-05-24] MEDS: ROPINIROLE HCL 0.25 MG TABLET PO SCH (08:23)
--- NOTE | 2020-05-24 10:30 | Hospitalist Progress Note ---
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 mechanical error) alongside possible recent illness. She has been hemodynamically stable throughout her stay. Diabetic Ketoacidosis - Resolved - Clinically, patient reports several days of fatigue, cough, dyspnea, nausea, myalgias, polydipsia, and polyuria with an inability to control home BS (in the 400s) with insulin pump - Upon being triaged here, was found to have an anion-gap acidosis with BS > 600, alongside serologic hyperkalemia at 5.7 -- consistent with DKA - Trigger likely relates to recent respiratory/gastrointestinal illness given patient's reported symptoms alongside pump failure - Trial of her pump later in the afternoon today is demonstrating poor response for basal and bolus purposes -- anticipate possible discharge on injectables until she can troubleshoot with PCP - CXR was not suggestive of acute pathology - EKG did not demonstrate any new arrhythmias or ST-T abnormalities - Patient replaced entryway for her pump this AM -- first few hours of pump re- inserted demonstrated failure 2/2 kink. Even after correcting this kink, BG continued to be high despite basal infusion and boluses. - For tonight, stop pump in lieu of suspected mechanical failure. Begin SQ glargine, novolog as means of holdover for now - Diabetic education spoke with patient to discuss disease process, pump function + specifics, etc. - BMP qAM Leukocytosis with Left Shift -- Unclear Etiology: Resolved - As above -- on admission, pt reported several days of fatigue, cough, dyspnea, nausea, myalgias alongside polydipsia / polyuria, possibly representing infectious/inflammatory symptoms alongside DKA - CXR negative - Unclear etiology but now resolved -- possible that some of the leukocytosis may be reactive in setting of DKA, initial WBC of 25 with left shift was concerning for infectious contribution - COVID negative - WBC stabilized at 8 -- much improved from previous days alongside clinical reports of her feeling better - Ceftriaxone discontinued Chronic Medical Problems - CAD: Continue propranolol, ASA - HTN: Hold lisinopril - HLD: Continue rosuvastatin 40mg PO daily - RLS: Continue ropinirole - Hypothyroidism: Continue Synthroid 137mcg PO daily -- TSH low at 0.08 upon arrival, consider rechecking once DKA under control Dispo: Med/surg F/E/N: DM1 Diet, mIVF(1/2NS+D5W w/ K 20mEq @ 200cc/hr) PPX: pLov Code: FULL CODE (2) Tobacco use disorder: (3) RLS (restless legs syndrome): (4) Vitamin D deficiency: (5) CAD (coronary artery disease): (6) Hypothyroidism: (7) Diabetic retinopathy associated with type 1 diabetes mellitus: (8) Type 1 diabetes mellitus, uncontrolled: (9) Hypertension: (10) Migraine: (11) Hyperlipidemia: Admission and Anticipated Discharge Date Admission Date: May 22, 2020 Supervising Physician Co-Signing Physician Notes I personally examined the patient and verified all martinez points of history and exam, discussed case, and agree with decision making with Dr Wallace feeling better. ongoing education on DM control. later her pump was hooked up - she was having some trouble w the software/interface, but even more - i watched her put in carb coverage that wuoldve given [address] wallace watched her enter for a bolus of 10 units - and sugar basically didn't budge vitals noted fatigued appearing heent nc at mmm breathing unlabored no accessory muscles good effort skin no rashes no pallor or icterus viral illness - covid negative, fits profile for virus prevalent in community. ok to stop abx DKA - poor baseline control + physiologic stress. also strongly suspicious of pump failure given sugars not reponding to ~20 units of 2 separate 10 unit boluses over a few hours. stop and revert to pens to ensure insulin administration headache - suboccipital tension - seems to have improved otherwise as above Subjective Overall, patient reports feeling well this morning. No acute events overnight. She still endorses mild headache, but denies any changes in vision. She further denies any chest pain, palpitations, shortness of breath. She says her appetite is returning, no nausea or vomiting. Review of Systems Review of Systems: as per hpi Physical Exam Constitutional: Well-appearing 65-year-old female who is lying back in her hospital bed, just awaking prior to my arrival. Upon conversing, she speaks in full sentences and is alert and oriented. No acute distress. Respiratory: Good respiratory effort with symmetric expansion of the chest. Lungs are clear to auscultation bilaterally without any crackles or wheezes. Cardiovascular: Normal rate and regular rhythm, S1 and S2 are present without any murmurs rubs or gallops. Gastrointestinal (Abdomen): Normal active bowel sounds. Soft, nontender, nondistended to palpation. No organomegaly. Results & Data Results & Data ([facility]) Vital Signs (Past 12 Hours) Vital Signs Temp Pulse Pulse Resp BP BP Pulse Ox 05/24/20 08:00 59 L 05/24/20 07:35 36.9 C 67 18 105/65 97 05/24/20 04:00 36.8 C 63 18 95/58 L 97 05/24/20 00:38 59 L 05/23/20 23:00 36.8 C 66 18 103/64 97 Resident Activity Tracking Resident Involvement: Resident Care Provided Care Provided: Adult Hospital Medicine
[2020-05-24] MEDS: NovoLOG INSULIN PUMP SCH ×3 (12:43→23:44)
--- NOTE | 2020-05-24 19:55 | Billing Data ---
Date of Service May 24, 2020 Coding Level of Care Code 46115 Subseq Hosp Care Lvl 3
[2020-05-24] MEDS ORDERED: INSULIN DETEMIR FLEXPEN/FLEX TOUCH 100 UNITS/ML 3ML SC SCH (21:00)
[2020-05-24] MEDS ORDERED: PHARMACY GLYCEMIC MGMT CONSULT PRN (23:15)
[2020-05-24] MEDS ORDERED: METOCLOPRAMIDE HCL INJ 5 MG/ML 2 ML VIAL IV STA (23:29)
[2020-05-24] MEDS ORDERED: INSULIN HUMAN REGULAR PER UNIT 5 UNITS in SYRINGE 4.95 ML IV ONE (23:30)
[2020-05-24] MEDS: INSULIN ASPART 100 UNITS/ML 3 ML PEN SC SCH (23:45)
[2020-05-25] MEDS ORDERED: INSULIN ASPART 100 UNITS/ML 3 ML PEN SC SCH ×2 (02:00→06:00)
[2020-05-25] MEDS ORDERED: INSULIN ASPART 100 UNITS/ML 3 ML PEN SC ONE (02:15)
[2020-05-25] MEDS: LEVOTHYROXINE SODIUM 137 MCG TABLET PO SCH (06:08)
--- NOTE | 2020-05-25 07:30 | Medical Student Progress Note ---
Date of Service May 25, 2020 Assessment & Plan (1) DKA (diabetic ketoacidoses): Patient is a 65 y/o F with pmh of diabetes 1/2 diagnosed at 58 y/o and DKA episode 4 years ago presenting with 3 days of nausea, polydipsia, polyuria consistent with DKA as well as cough and SOB with negative rapid COVID-19 swab. Last labs on 05/23 - VBG pH 7.40 - Na 140 - CO2 21 - Anion Gap 6 - HgA1c 11 DKA could have been precipitated by infection over the weekend and poorly calibrated insulin pump with kinked tubing. No recent surgeries. Recent COVID-19 exposure may be a significant stressor. Patient transitioned to her own subQ pump due to resolved DKA symptoms and labs. Own pump was then discontinued and she was switched to sub Q injections with pens. (2) Type 1 diabetes mellitus, uncontrolled: Mixed type 1/2 presentation diagnosed at age 58 with previous DKA episode. Managed with insulin pump novolog U-100 insulin aspart 100unit/mL. Check pump calibration and cord, educate patient on insulin use and pump maintenance. Pump tubing has kinked and been replaced x2, new site inserted. Consider changing sub Q site due to suspicion of fibrosis. 10 unit bolus given thorough pump last PM droped sugars 10-20 points after 1 hour. - 25 units insulin given IV last PM, plus 10 subQ overnight due to sugars being above 400. This morning sugars are 186. - Currently on sliding scale subQ pen injection - She is eligible for a pump upgrade pending taking an online survey - Pump always inserted lower right abdomen, dexcom always left abdomen - question of fibrosis not allowing insulin to absorb properly - Will transition patient to insulin pens until she is able to obtain new pump. See discharge note for dosing. - Recommend patient follow-up with PCP and endocrine to transition to new pump and adjust settings. Admission and Anticipated Discharge Date Admission Date: May 22, 2020 Subjective Patient is feeling better this morning. Denies nausea, vomiting, GI upset, polydipsia, polyuria, SOB, cough, chest pain this morning. She became nauseous when attempting to eat last night and vomited once. Was given Zofran and nausea is resolved this morning. From 8pm to 8am, patient received total of 55 units of insulin sub cutaneous, not through her own pump. Review of Systems Respiratory: no cough and no dyspnea Cardiovascular: no chest pain, no edema and no calf pain Gastrointestinal: no nausea and no vomiting Genitourinary: no dysuria and no difficulty urinating Neurologic: + headache(s) headache less than yesterday Physical Exam Constitutional: WD/WN, vitals as above Respiratory: normal respiratory effort, lungs clear to auscultation Cardiovascular: RRR, no murmur, no edema Gastrointestinal (Abdomen): Percussion/Palpation: abdomen soft; abdomen nontender Psychiatric: A+Ox3, euthymic affect Results & Data ([facility]) Vital Signs (Past 12 Hours) Vital Signs Temp Pulse Resp BP BP Pulse Ox 05/25/20 04:00 36.9 C 80 20 121/75 96 05/24/20 22:58 36.8 C 75 18 154/81 H 97 05/24/20 19:41 36.9 C 68 16 124/70 96
[2020-05-25 08:06] LABS: BUN Creatinine Ratio 19.6 (10-20); Creatinine Clr Calc Pharmacy 61.4 ml/min; Est GFR (African American) 89.6; Est GFR (Non-African American) 77.3; Potassium 4.2 mmol/L (3.5-5.1)
[2020-05-25] MEDS: PROPRANOLOL HCL LA 80 MG CAPCR PO SCH (08:32)
[2020-05-25] MEDS: GABAPENTIN 100 MG CAP PO SCH (08:32)
[2020-05-25] MEDS: ASPIRIN 81 MG ECTAB PO SCH (08:32)
[2020-05-25] MEDS: CHOLECALCIFEROL 1,000 UNITS 25 MCG TAB PO SCH (08:33)
[2020-05-25] MEDS: ROSUVASTATIN CALCIUM 20 MG TAB PO SCH (08:33)
[2020-05-25] MEDS: MONTELUKAST SODIUM 10 MG TABLET PO SCH (08:33)
[2020-05-25] MEDS: ENOXAPARIN INJ 40 MG/0.4 ML SYR SQ SCH (08:34)
[2020-05-25] MEDS: INSULIN ASPART 100 UNITS/ML 3 ML PEN SC SCH ×2 (08:35→11:54)
[2020-05-25] MEDS: ROPINIROLE HCL 0.25 MG TABLET PO SCH (08:36)
[2020-05-25] MEDS: ACETAMINOPHEN 325 MG TAB PO PRN (08:44)
--- NOTE | 2020-05-25 12:38 | Pharmacy Report ---
Pharmacy Glycemic Short Note 2 - Date of Service May 25, 2020 - Glycemic Short BSG Results (Last 24 hours): 05/24/20 05/24/20 05/24/20 08:07 09:58 11:29 Glucose POC Glucose 118 H 240 H 239 H 05/24/20 05/24/20 05/24/20 13:32 15:55 17:38 Glucose POC Glucose 381 H* 387 H* 346 H* 05/24/20 05/24/20 05/25/20 20:19 23:23 01:55 Glucose POC Glucose 432 H* 437 H* 371 H* 05/25/20 05/25/20 05/25/20 05:58 07:20 07:48 Glucose 170 H POC Glucose 186 H 181 H 05/25/20 11:42 Glucose POC Glucose 277 H ASSESSMENT: * 65 yo F with mixed type 1 and type 2 diabetes (but managed as Type 1) admitted with DKA. Per H&P, she reported that her blood sugars have been running into the 400s over the past 3 to 4 days, despite trying to correct with her insulin pump. I spoke w Dr. Porter who is concerned for pump malfunction (pump error vs. user error possible). 05/25: * Had tried to covert to insulin pump, however issues with [place] kinking. Changed to SQ basal/bolus insulin last night and pharmacy reconsulted to help with management * Received 25 units of basal insulin last night, fasting 186 mg/dL - patient receiving insulin overnight as BSGs in 400s * Tightened CR this AM to 12, (tighter than home CR of 15) * Lunch BSG trending up - already given insulin before adjustments made, plan to tighten further to 10 and change goal range 120-160 PLAN FOR INPATIENT GLYCEMIC CONTROL: * Hold outpatient oral diabetes medications * Basal insulin * Lantus 25 units HS * Bolus insulin * NovoLog per scale ACHS or Q6hrs while NPO * Goal Range: Low 120 mg/dL - High 160 mg/dL * Correction Factor: 40 mg/dL/unit * Nutritional / Prandial insulin per carb ratio of 1 unit per 10 grams CHO consumed PLAN FOR DISCHARGE: * A1c of 11% on admission * Since continued issues with insulin pump, would recommend continued use of basal/bolus insulin on discharge * Could consider continuing Levemir 25 units HS * Patient met with DM educator and patient willing to do carb counting - could consider CR of 10 with meals. Patient also agreeable to use a sliding scale vs. correction factor. Could consider low/moderate scale as below with goal range 110-160 : Blood Sugar 70-160 administer 0 units Blood Sugar 161-200 administer 1 units Blood Sugar 201-250 administer 3 units Blood Sugar 251-300 administer 5 units Blood Sugar 301-350 administer 7 units Blood Sugar 351-400 administer 9 units Blood Sugar >400 administer 11 units and call MD * Patient would need close monitoring as regimen would likely need titrated.
--- NOTE | 2020-05-25 18:12 | Discharge Summary ---
Date of Service May 25, 2020 Admission HPI Per Admitting Provider The patient is a 65-year-old female with a past medical history including RLS, vitamin D deficiency, CAD, hypothyroidism, diabetic retinopathy, diabetes mellitus type 1, hypertension, migraine and hyperlipidemia. She did undergo COVID-19 testing while in the ED, which was negative tonight. She reports that her blood sugars have been running into the 400s over the past 3 to 4 days, despite trying to correct with her insulin pump. She has had decreased oral intake, and was concerned that her symptoms as she is presenting today are similar to previous episodes of DKA. Work-up in the emergency department was significant for WBC 25.17 with left shift, sodium 127, potassium 5.7, bicarb 15, BUN 29, glucose 641 and phosphorus 5.5. She received a total of 3 L of normal saline, Toradol 15 mg IV, and Zofran 4 mg IV from the emergency department. She did report feeling somewhat improved following the IV fluids. Principal Diagnosis DKA uncontrolled DM1 Discharge Exam gen aaox3 pleasant nad heent nc at mmm breathing unlabored no accessory muscles good effort skin no rashes no pallor or icterus neuro no focal deficits Discharge Data Allergies Allergy/AdvReac Type Severity Reaction Status Date / Time Sulfa (Sulfonamide Allergy Intermediate HIVES Verified 05/21/20 21:17 Antibiotics) insulin glargine AdvReac Severe SEE COMMENT Verified 05/21/20 21:17 [From [employer] SoloStar U-300 Insulin] Consultations 05/21/20 23:32 ED Decision to Admit Stat 05/22/20 01:47 Consult Case Management - Discharge Planning Routine Hospital Course (1) DKA (diabetic ketoacidoses): Jes Patel is a 65-year-old female with a notable past medical history of mixed T1DM/T2DM on insulin pump, CAD, HTN, HLD, and hypothyroidism who presented to [facility] on 05/21 in diabetic ketoacidosis, thought to be triggered 2/2 pump failure alongside recent illness. She has been hemodynamically stable throughout her stay. Diabetic Ketoacidosis - Clinically, patient reports several days of fatigue, cough, dyspnea, nausea, myalgias (COVID negative) polydipsia, and polyuria with an inability to control home BS (in the 400s) with insulin pump - Upon being triaged here, was found to have an anion-gap acidosis with BS > 600, alongside serologic hyperkalemia at 5.7 -- consistent with DKA - Trigger likely relates to recent respiratory/gastrointestinal illness given patient's reported symptoms alongside ?pump/user error -- correlates with leukocytosis (WBC 25) w/ left shift discovered at admission - CXR was not suggestive of acute pathology - EKG did not demonstrate any new arrhythmias or ST-T abnormalities - improved, stable for home Leukocytosis with Left Shift -- Unclear Etiology - probably was all demargination - had empiric rocephin when WBC was markedly high but now improving and after days of follow up no clear cause for WBC beyond demargination - stable off abx - repeat CBC as outpt (2) Type 1 diabetes mellitus, uncontrolled: seems to be two issues at once knowledge gap - was aware of complications of uncontrolled DM, but not really at all aware of cause-effect relationship between hyperglycemia and microvascular ischemic disease. educated on such. in this respect she appears to have almost certainly been under-covering mealtime carb loads and suffering postprandial highs pump malfunction - for unclear reasons (?tubing vs pump itself) her sugars were not budging with her pump here - mid to high 300's and no change after several 10 unit boluses and time to follow - switched to pens for now as she works out that. however, she additionally had a lot of trouble managing the user- interface to get it to do what she wanted it to do - so even if pump itself is working, she would definitely need ongoing education on how to use it more adeptly so she can adjust insulins/appropriately bolus meals/etc. stable for home Total Time Total Time Spent Total Time Spent (In Minutes): >30 Discharge Plan Discharge Items Patient Disposition: Home - Self-Care Reason For Visit: DKA Discharge Diagnosis: diabetic ketoacidosis Activity: Resume your previous activity Non-emergency contact: Primary Care Provider Call non-emergency contact if: your symptoms worsen and your temperature is above 101.5 Follow-up/Referrals: Yaz Pantoja CRNP [Primary Care Provider] - 06/01/20 1:00 pm Diet: Carb Count or DM1 Addtl Attending Provider Instructions: DKA DKA occurs when your body's cells don't receive enough insulin to utilize blood sugar for their energy; therefore, despite "high blood sugars" in DKA, your body's cells are starved of this sugar, and therefore don't have the energy they need to function. Further, the high sugar basically acts like a diuretic making you pee off fluids, getting you dehydrated which causes physical stress that further makes your sugar rise. You were treated with intravenous insulin and fluids to steadily return your body to a normal state. Your blood sugars were stable by the time of discharge. The cause of your DKA was likely multifactorial. First is proper management of your insulins and sugar levels -- it is critically important that your pump deploys an accurate amount of insulin depending on your blood sugar readings (for both basal rates and during mealtimes) and if it seems like it's not working well then we have the insulin pens as a backup. Second, it is also because you had a viral illness passing through that contributed to increased stress hormones, which increase blood sugar levels. uncontrolled diabetes -separate from the DKA episode, your baseline control if diabetes is worrisome. because high sugars clog arteries - uncontrolled diabetes leads to accumulated damage/clogging of blood vessels that eventually can lead to (most commonly) heart attacks and strokes, and (most "famously") neuropathy, blindness, and kidney failure -in A1c terms, basically when an A1c is higher than about 7.0, you know that you've been clogging arteries to some extent over the previous three months -- the higher the A1c typically the worse the problem -in "any given moment sugar" terms, typically a reasonable rule of thumb is anytime you see something above about 160 you can start to assume there's a little bit of damage going on (most notably here -- that line of above 160 is really more once it's been about 1.5-2 hours since eating/giving insulin - as sometimes depending on what you ate you can get a quick rise - but if it reigns in quickly as well, the "damage" won't really amount to anything) -when your body doesn't make its own insulin, as is the case in type 1 diabetes, we need to give you insulin to keep you from having uncontrolled sugars - this happens in two ways - basal and bolus ---basal insulin is the insulin that covers your fasting metabolism. when it's been a while since you last ate, there's still usually a little sugar floating around from the carbs you had, and your liver will be dumping a small amount of insulin out into your blood stream. basal insulin is generally a "slow trickle" to keep pushing that sugar from your bloodstream into your muscles. that would be the pump settings that run all the time (which with what we're seeing would probably be around 1.2 units per hour) or if the pump isn't working right - the levemir - at a dose of about 25 units a day. ---bolus insulin - this is the insulin you use to cover the carbs that you eat. when you eat anything with sugars, starches, carbs, etc - those will get absorbed fairly quickly into your bloodstream and make your sugar rise (usually over about 30-90 minutes) - because the basal insulin won't be enough to get that sugar out of your bloodstream, you need to give extra insulin to "cover" for those carbs. when you're using your pump - that's when you punch in for a bolus, or if the pump isn't working - that is where the novolog pen comes in. either one (a bolus from the pump, or a shot from the novolog) will kick in about 15 minutes after you start it, then reach a peak in about an hour to 1.5 hours. the novolog will then wear off by about 3-4 hours after injection, whereas the bolus from the pump will be gone a little quicker. either way- the goal is to give yourself enough insulin to "match" the carbs you ate. generally speaking, you'll know you matched things up right if you see a sugar 1.5-2 hours after eating that is between about 100-150. what you'll see there is that foods that have more carbs will (understandably) require more insulin to process. when you're using a carb ratio in your pump - somewhere in the area of 1:10 to 1:7 seems to be about right for you, or if you're doing it based on how many units - on average probably around 10 units per meal. if you're eating something super low-carb (say, eggs and coffee) then you might only need 5 units; if you're eating something really carb heavy (like a plate of spaghetti) it might take 15 units. this is the "educated trial and error" part -- where you'll work on matching up what you ate with enough insulin - but then as you "grade your work" and see sugars after eating - if you're seeing that you ate something that made your sugar go too high, then then next time you eat it, you'll want to give yourself a little more insulin. this, combined with the idea that similar foods are going to require similar amounts of insulin, will make it fairly easy for you to learn quickly how to keep your sugars in line. troubleshooting -as we discussed, the problem with a "confusing" sugar reading (higher than expected, or a surprise low) is almost always (99% of the time) a mismatch between insulin and carbs. a "surprise" high sugar generally will mean that you didn't take enough insulin to cover the carbs you ate, a "surprise" low sugar would be too much insulin relative to what you ate (or with the lows you were talking about - having too much basal insulin for being in a prolonged fasting state - like during a shift at work). as we discussed, gastroparesis would not cause a high sugar - gastroparesis would actually mean that what you ate was still sitting in your stomach rather than moving to your intestines where most nutrient absorption occurs - and so if you took insulin and the food was still just sitting in your stomach you would actually have a low sugar -your pump seems to not be working right, at least at this time. it could be as simple as the tubing all getting kinked, but when we're seeing you punch in 10 unit boluses and your sugar doesn't budge - it definitely tells us the somewhere in the system things are failing. work with the endocrine office on either getting things working right or getting a new pump. in the meantime - so you can get out of the hospital and back to live - we've prescribed pens. we're using levemir and novolog right now to act as your basal and bolus -levemir kicks in slowly about 2 hours after you inject it, never really re aches a peak, and lasts for about 24 hours - of note, it slowly wears off over about the last 4 hours -novolog kicks in about 15 minutes after you inject it, peaks about 90 minutes after, and is gone about 3-4 hours after -if you have a working pump again and are looking to switch back to using it, i would recommend waiting until you're about 24 hours from your last dose of levemir to start it (at least 18 hours to be safe) -- the idea there being that if you start your pump up (and it's working) then the basal rate of the pump, combined with the basal secretion of the levemir, will have you basically getting DOUBLE the basal insulin and setting yourself up for a low. going the other direction, if you have been using your pump and it seems like it's failing you - it will probably be mostly worn off in about an hour after you disconnect it follow up with the endocrine office next week so you can continue to get the pump issues sorted out. Pending Studies at Discharge: No Stand-Alone Forms: [facility], Smoking Cessation Medications and DC Order Prescriptions: New Levemir FlexTouch U-100 Insuln 100 unit/mL (3 mL) insulin pen 25 unit subcut HS Qty: 15 RF: 0 insulin aspart U-100 [Novolog Flexpen U-100 Insulin] 100 unit/mL (3 mL) i nsulin pen 10 unit subcut AC Qty: 15 RF: 0 (DME) insulin admin supplies Insulin Pen See Rx Instructions .ROUTE .MEDSUPPLY Qty: 1 RF: 0 Continued (DME) blood sugar diagnostic [OneTouch Ultra Blue Test Strip] Strip See Rx Instructions .ROUTE .MEDSUPPLY Qty: 200 RF: 5 levothyroxine 137 mcg tablet 137 mcg PO DAILY Qty: 30 RF: 2 Novolog U-100 Insulin aspart 100 unit/mL solution See Rx Instructions .ROUTE .COMPLEX Qty: 30 RF: 5 ropinirole 0.5 mg tablet 0.5 mg PO QAM RF: 0 propranolol 80 mg capsule,extended release 24 hr 80 mg PO QAM RF: 0 rosuvastatin 40 mg tablet 40 mg PO QAM RF: 0 acetaminophen [Tylenol Arthritis Pain] 650 mg Tablet Extended Release 650 mg PO Q12H PRN (Reason: Pain) RF: 0 aspirin 81 mg tablet,delayed release (DR/EC) 81 mg PO QAM RF: 0 ondansetron HCl [Zofran] 4 mg tablet 4 mg PO Q6H PRN (Reason: nausea and vomiting) Qty: 10 RF: 0 hydrocodone-acetaminophen 7.5-325 mg Tablet 1 tab PO Q12H PRN (Reason: Pain) RF: 0 gabapentin 100 mg Capsule 100 mg PO TID RF: 0 cholecalciferol (vitamin D3) [Vitamin D3] 50 mcg (2,000 unit) Capsule 50 mcg PO QAM RF: 0 lisinopril 5 mg tablet 5 mg PO QAM RF: 0 montelukast 10 mg tablet 10 mg PO QAM RF: 0 albuterol sulfate [Ventolin HFA] 90 mcg/actuation Hfa Aerosol Inhaler 2 puff INHALATION QID PRN (Reason: Shortness Of Breath Or Wheezing) RF: 0 oxycodone 5 mg Tablet 5 mg PO Q4H PRN (Reason: pain) Qty: 20 RF: 0 Discharge Orders: Discharge Order (Routine); Ordered 05/25/20 Ordered By: Remberto Ellis Admission Data Admit Date/Time: 05/22/20 00:29 Attending Provider: Remberto Ellis Admit Provider: Yonas Sanon Primary Care Provider: Yaz Pantoja Other Providers: Yonas Sanon Other Interventions: Discharge Summary Assessment (RN) Last Done: 05/25/20 12:54 Coding Level of Care Code D/C Day Management >30 mins Diagnoses DKA (diabetic ketoacidoses) E11.10 Type 1 diabetes mellitus, uncontrolled E10.65
== END 2020-05-25 14:06 | disposition home or self-care (01) | DRG 639 ==
LOC: ED 18:22 → 2S 05-22 00:29 → SUATTDRO 05-22 00:29 → 2S 05-22 01:27

== ENCOUNTER 2021-01-01 09:17 | Observation (INO) ==
--- NOTE | 2020-12-07 14:12 | PAT Medication Instructions ---
Medication Instructions Date of Service December 07, 2020 Home Medications Medication Instructions Recorded ondansetron HCl [Zofran] 4 mg PO Q6H PRN #10 tab 09/07/19 insulin aspart U-100 [Novolog 10 unit SUBCUT AC #15 ml 05/25/20 Flexpen U-100 Insulin] BD Ultra-Fine Shira Pen Needle 32 #400 ea NS 10/04/20 gauge x 5/32" blood sugar diagnostic #100 ea 11/07/20 propranolol 80 mg PO QAM albuterol sulfate [Ventolin HFA] 2 puff INHALATION QID PRN lisinopril 5 mg PO QAM montelukast 10 mg PO QAM aspirin 81 mg PO QAM ondansetron HCl [Zofran] 4 mg PO Q6H PRN cholecalciferol (vitamin D3) [Vitamin D3] 50 mcg PO QAM gabapentin 100 mg PO TID hydrocodone-acetaminophen 1 tab PO Q12H PRN insulin aspart U-100 [Novolog Flexpen U-100 Insulin] 10 unit SUBCUT AC ibuprofen 400 mg PO Q6H PRN levothyroxine 137 mcg PO QAM insulin degludec 100 unit/mL (3 mL) subcutaneous pen 15 unit SUBCUT HS duloxetine 30 mg PO HS ropinirole 0.5 mg PO QAM celecoxib [Celebrex] 100 mg PO QAM ASK your surgeon for instructions ibuprofen 400 mg PO Q6H PRN celecoxib [Celebrex] 100 mg PO QAM DO NOT take the morning of surgery lisinopril 5 mg PO QAM montelukast 10 mg PO QAM cholecalciferol (vitamin D3) [Vitamin D3] 50 mcg PO QAM insulin aspart U-100 [Novolog Flexpen U-100 Insulin] 10 unit SUBCUT AC Take morning of surgery With a small sip of water, OTHERWISE NOTHING TO EAT OR DRINK AFTER MIDNIGHT: propranolol 80 mg PO QAM albuterol sulfate [Ventolin HFA] 2 puff INHALATION QID PRN (if needed, and bring with you to the hospital) aspirin 81 mg PO QAM ondansetron HCl [Zofran] 4 mg PO Q6H PRN (if needed) gabapentin 100 mg PO TID hydrocodone-acetaminophen 1 tab PO Q12H PRN (if needed, may be taken up to four hours before surgery) levothyroxine 137 mcg PO QAM ropinirole 0.5 mg PO QAM Take evening before surgery albuterol sulfate [Ventolin HFA] 2 puff INHALATION QID PRN (if needed) ondansetron HCl [Zofran] 4 mg PO Q6H PRN (if needed) gabapentin 100 mg PO TID hydrocodone-acetaminophen 1 tab PO Q12H PRN (if needed) insulin aspart U-100 [Novolog Flexpen U-100 Insulin] 10 unit SUBCUT AC insulin degludec 100 unit/mL (3 mL) subcutaneous pen 15 unit SUBCUT HS duloxetine 30 mg PO HS Other Notes If you have any questions please call us at [phone] or [phone] or [phone] or [phone]
--- NOTE | 2020-12-10 09:37 | Anesthesiology Consultation ---
Date of Service December 10, 2020 Assessment & Plan (1) Encounter for pre-operative examination: COVID Status: As of 12/10 assessment, patient denies travel to endemic area, known exposure/sick contacts, or symptoms of COVID19. Patient instructed that they and their household members must follow strict social distancing guidelines, wear a mask in public and avoid travel/events/gatherings for 14 days prior to surgery. Preoperative COVID19 testing to be completed prior to surgery per surgeon's arrangements. Patient made aware to self-isolate as much as possible between COVID testing and surgery. Pt has had COVID vaccinations. Works at [employer] -- currently no cases of COVID, but earlier in the pandemic nearly every staff member and resident contracted COVID. Very poorly controlled Type I DM -- A1C 10.4% 11/23/20. Surgeon's office notified. Patient's A1C has not been under 10 since 2019. Pt seeing endocrine for f/u on 12/12. BSG AM DOS. Chart Review Chart Review: Acceptable Risk for Surgery (pending 12/12 endocrine appt) and Patient seen in Pre Admission Testing Teaching & Discussion Instructed NPO after midnight before surgery, except medications with 15 cc of water. Medication instructions provided according to the PAT guidelines. History Surgery Operation Date: 01/01/21 08:50 Proposed Procedures p Left Total Hip Replacement Uncemented(Left) - Philipp Hutson MD Height/Weight Height: 5 ft 4 in Weight: 69.2 kg Allergies Allergy/AdvReac Type Severity Reaction Status Date / Time Sulfa (Sulfonamide Allergy Intermediate HIVES Verified 12/07/20 10:11 Antibiotics) insulin glargine AdvReac Severe SEE COMMENT Verified 12/07/20 10:11 [From Ciarra Burden U-300 Insulin] Medications Home Medications Medication Instructions Recorded Confirmed Last Taken propranolol 80 mg PO QAM 02/09/19 12/07/20 10/30/20 albuterol sulfate [Ventolin HFA] 2 puff INHALATION QID PRN 06/27/19 12/07/20 Unknown lisinopril 5 mg PO QAM 06/27/19 12/07/20 10/30/20 montelukast 10 mg PO QAM 06/27/19 12/07/20 10/30/20 aspirin 81 mg PO QAM 09/07/19 12/07/20 10/30/20 ondansetron HCl [Zofran] 4 mg PO Q6H PRN #10 tab 09/07/19 12/07/20 08/27/20 2 tablets cholecalciferol (vitamin D3) 50 mcg PO QAM 05/21/20 12/07/20 10/30/20 [Vitamin D3] gabapentin 100 mg PO TID 05/21/20 12/07/20 10/30/20 hydrocodone-acetaminophen 1 tab PO Q12H PRN 05/21/20 12/07/20 10/29/20 insulin aspart U-100 [Novolog 10 unit SUBCUT AC #15 ml 05/25/20 12/07/20 10/30/20 Flexpen U-100 Insulin] ibuprofen 400 mg PO Q6H PRN 08/27/20 12/07/20 10/30/20 09:30 600 mg levothyroxine 137 mcg PO QAM 08/27/20 12/07/20 10/30/20 insulin degludec 100 unit/mL (3 15 unit SUBCUT HS ml 08/31/20 12/07/20 10/29/20 mL) subcutaneous pen BD Ultra-Fine Shira Pen Needle 32 #400 ea NS 10/04/20 12/07/20 Unknown gauge x 5" duloxetine 30 mg PO HS 10/30/20 12/07/20 10/29/20 ropinirole 0.5 mg PO QAM 10/30/20 12/07/20 10/30/20 blood sugar diagnostic #100 ea 11/07/20 12/07/20 Unknown celecoxib [Celebrex] 100 mg PO QAM 12/07/20 12/07/20 Unknown Past Medical History Medical History (Updated 12/10/20 @ 14:18 by Eron Giordano) Bilateral hip joint arthritis CAD (coronary artery disease) "Moderate diffuse coronary atherosclerosis with type I left anterior descending artery" per 2019 heart cath. Diabetic retinopathy associated with type 1 diabetes mellitus Hyperlipidemia hx of and no longer takes medication Hypertension Hypothyroidism RLS (restless legs syndrome) Tobacco use disorder Type 1 diabetes mellitus, uncontrolled A1C > 10% in 11/2020 Vitamin D deficiency Exercise / Class Metabolic Activity II 4-5 Yardwork/Stairs/Walk up hill Past Family History Family History Other No significant family history Past Surgical History Surgical History History of cholecystectomy History of total left knee replacement Hx of cardiac cath Performed for chest pain syndrome. Diffuse moderate CAD, no stents placed, aggressive risk factor modification recommended. Follows with NAVEEN Gaines at [facility]. S/P ERCP 06/28/19 -- MAC #3, ETT 7.0. Past Anesthesia History No Hx of Anesthesia Complications and No Family Hx of Anesthesia Complications History of PONV No Hx of PONV and No Hx of Motion Sickness Social History Smoking Status: Current every day smoker tobacco type: cigarettes Smoking cigarettes per day: 5 cig a day Do You Dip or Chew Tobacco: No Hx Alcohol Use: No Hx Substance Use: No substance use type: does not use Review of Systems Pt denies any recent chest pain, shortness of breath, palpitations, cough, fever, URI, or uncontrolled acid reflux. Physical Exam Vital Signs BP: 123/73 P: 67bpm SPO2: 97% RA T: 98.7 F R: 16 ENMT Mouth: + dentures (partial upper); no chipped teeth and no loose teeth Thyromental Distance: > or= 3.5 Finger Breadths Mallampati Class: I Neck normal visual inspection; neck extension not limited Respiratory normal respiratory effort, lungs clear to auscultation Cardiovascular RRR, no murmur, no edema Vessels: no carotid bruit Testing Laboratory Results 12/10/20 09:59 12/10/20 09:59 PT 9.9 Seconds (9.0-12.0) 12/10/20 09:59 INR 1.0 (0.9-1.1) 12/10/20 09:59 APTT 26.0 Seconds (21.0-31.0) 12/10/20 09:59 Blood Type A Positive 12/10/20 09:59 Antibody Screen NEGATIVE 12/10/20 09:59 A1C 10.4% 11/23/20. Surgeon's office notified of elevated glucose/A1C. Electrocardiogram Date: 05/21/20 Findings: + NSR @ (82bpm) Compared with EKG of 06/27/2019, nonspecific T wave abnormality no longer evident in inferior leads and T wave amplitude has increased in anterolateral leads. Chest X-Ray Date: 05/21/20 Findings: + NAD There is a stable calcified granuloma within the left midlung zone. Echocardiogram Date: 06/14/20 EF: 60-65% The study was technically adequate. Compared to prior study, there is no sign ificant change. LV wall motion is normal. Normal LV relaxation. No significant valvular pathology. Cardiac Catheterization Date: 03/15/19 Impression: Moderate diffuse coronary atherosclerosis with type I left anterior descending artery Plan: Aggressive medical therapy with risk reduction
[2020-12-10 11:09] LABS: Basophils # (auto) 0.02 K/uL (0-0.2); Basophils % (auto) 0.3 %; Hematocrit (blood only) 36.5 % (37-47); Hemoglobin 12.1 g/dL (12.0-16.0); Immature Granulocytes # (auto) 0.01 K/uL (0.00-0.02); Immature Granulocytes % (auto) 0.1 %; Lymphocytes # (auto) 1.99 K/uL (1.2-3.4); Lymphocytes % (auto) 26.7 %; Mean Corpuscular Hemoglobin 29.2 pg (25-34); Mean Corpuscular Hgb Conc 33.2 g/dL (32-36); Mean Platelet Volume 10.6 fL (7.4-10.4); Monocytes # (auto) 0.37 K/uL (0.11-0.59); Neutrophils # (auto) 5.07 K/uL (1.4-6.5); Neutrophils % (auto) 67.9 %; Platelet Count 268 K/uL (130-400); RDW Coefficient of Variation 13.5 % (11.5-14.5); RDW Standard Deviation 43.9 fL (36.4-46.3); Red Blood Count 4.15 M/uL (4.2-5.4); White Blood Count 7.46 K/uL (4.8-10.8)
[2020-12-10 11:20] LABS: Prothrombin Time 9.9 Seconds (9.0-12.0)
[2020-12-10 11:42] LABS: BUN Creatinine Ratio 21.4 (10-20); Calcium 8.7 mg/dl (8.5-10.1); Creatinine Clr Calc Pharmacy 98.2 ml/min; Est GFR (Non-African American) 99.2; Potassium 3.9 mmol/L (3.5-5.1)
[~2021-01-01 09:17] MED LIST changes: +ACETAMINOPHEN 500 MG TAB PO SCH; +BUPIVACAINE 0.5 % 5 MG/1 ML PF 10ML VIAL ONE; -DFL100 PO; -ERGO500037 PO; +FAMOTIDINE 20 MG TAB PO SCH; +GABAPENTIN 600 MG DOSE PO SCH; -INSDGIPEN SC; -INSU100I SQ; -LEVO150T9 PO; +LR 500ML BOLUS, THEN 15ML/HR IV SCH; +LR 60ML/HR IV SCH; -MECL-91 PO; +METOCLOPRAMIDE HCL 10 MG TABLET PO SCH; -PRLSR20 PO; +Scopolamine 1 MG TDSY TD SCH; +TRANEXAMIC ACID 1,000 MG **IV Intra-op IV SCH; +ceFAZolin 2000MG 2,000 MG/15 ML SYR IV SCH
--- NOTE | 2021-01-01 10:33 | History & Physical Bridge Note ---
Date of Service January 01, 2021 History & Physical Bridge Note I have examined the patient, reviewed the History & Physical and in the interval since the performance of the History & Physical I have noted the following changes of clinical significance: no changes noted
[2021-01-01] MEDS ORDERED: NALOXONE HCL 1 MG in SODIUM CHLORIDE 0.9% 1000ML 1,000 ML IV PRN (11:10)
[2021-01-01] MEDS ORDERED: HYDROmorphone INJ 2 MG/ML SYR/VIAL IV PRN (11:10)
[2021-01-01] MEDS ORDERED: ePHEDrine sulfate 50 MG/ML AMP IV PRN ×2 (11:10)
[2021-01-01] MEDS ORDERED: NALOXONE HCL 0.4 MG/1 ML VIAL/CARP IV PRN ×2 (11:10→15:29)
[2021-01-01] MEDS ORDERED: LACTATED RINGER'S 500 ML IV PRN (11:10)
[2021-01-01] MEDS ORDERED: ONDANSETRON INJ 2 MG/ML 2 ML VIAL IV PRN ×3 (11:10→15:29)
[2021-01-01] MEDS ORDERED: ATROPINE SULFATE 0.1 MG/ML 10ML SYR IV PRN (11:10)
[2021-01-01] MEDS ORDERED: PROMETHAZINE HCL 25 MG in SODIUM CHLORIDE 0.9% 50 ML IV PRN (11:10)
[2021-01-01] MEDS ORDERED: MoRPHine SULFATE PF 1 MG/ML 10 ML AMP/VIAL INT SPINAL ONE (11:10)
[2021-01-01] MEDS ORDERED: fentaNYL citrate 100 MCG/2 ML VIAL IV PRN (11:10)
[2021-01-01] MEDS ORDERED: NALOXONE HCL 0.08 MG in SYRINGE 1.8 ML IV PRN (11:10)
[2021-01-01] MEDS ORDERED: MoRPHine SULFATE 2 MG/ML CARP IV PRN (11:10)
[2021-01-01] MEDS ORDERED: SODIUM CHLORIDE 0.9% 1000ML 1,000 ML IV SCH (11:15)
[2021-01-01] MEDS ORDERED: NO NARCOTICS OR SEDATIVES SCH (11:15)
[2021-01-01] MEDS ORDERED: DC INTRASPINAL MORPHINE SCH (11:15)
[2021-01-01] MEDS ORDERED: MIDAZOLAM HCL 1 MG/ML 2ML VIAL ONE (12:08)
[2021-01-01] MEDS ORDERED: MoRPHine SULFATE PF 1 MG/ML 10 ML AMP/VIAL ONE (12:09)
[2021-01-01] MEDS ORDERED: BUPIVACAINE/EPINEPHRINE 0.5% MPF 1:200,000 30 ML VIAL ONE (12:26)
[2021-01-01] MEDS ORDERED: PHENYLEPHRINE 100MCG/ML 5ML SYR ONE (13:26)
[2021-01-01] MEDS ORDERED: ceFAZolin 1000MG 1,000 MG/7.5 ML SYR IV ONE (13:36)
--- NOTE | 2021-01-01 14:33 | Operative Report ---
Post Operative Report Pre & Post Diagnosis Operation Date: 01/01/21 12:00 Pre-Op Diagnosis: Right Hip Advanced Degenerative Joint Disease Post-Op Diagnosis: Right Hip Advanced Degenerative Joint Disease I identified the patient and participated in the time-out.: Yes Procedure Operation Date: 01/01/21 12:00 Actual Procedures p Right Total Hip Arthroplasty--Uncemented(Right) - Philipp Hutson MD Surgeon Philipp Hutson MD Salesperson [employer] AMY Dean Estimated Blood Loss 200 Findings Consistent with Post-Op Diagnosis Operative findings were advanced right hip DJD. She had pretty extensive grade 4 [id number] disease of the femoral head and acetabulum. She had small anterior acetabular osteophytes. Moderate-sized joint effusion. Fluids 1000 cc. Specimens Right femoral head sent for pathology. Drains None. Anesthesia Type Spinal MAC Complications none Disposition Accompanied Patient To Recovery: Yes Disposition: Recovery Room Indications Patient is a 65-year-old female resenting a long history of bilateral hip pain discomfort is rigid but worsening with respect to her extensive conservative treatment and things and symptoms of just progressed to the point where she is having difficulty getting around and being active to any degree. X-ray showed bilateral hip arthritis the right side bit worse than the left. She elected proceed with right total hip arthroplasty. Description of Procedure Operative implants consisted of: 1. Biomet size 50 mm G7 acetabular shell. 2. 6.5 cancellous acetabular screws 1 of 35 mm length 1 to 25 mm length. 3. Bucklin hole certified hand therapist. 4. Highly cross-linked polyethylene liner with a 50 mm outer diameter and a 36 mm inner diameter with a vasquez placed inferior and posterior. 5. DePuy Corail size 12 KLA femoral stem. 6. +5/36 mm ceramic articular ball. The patient was taken to the operating room, identified, placed on the operating table supine position but all contact areas were properly padded. IV antibiotics tried by anesthesia team. A spinal anesthetic and been implemented holding area. Scruggs cath was placed in sterile fashion. The patient was then placed in the left lateral decubitus position. An axillary roll was placed. A Stulberg hip positioner was used for positioning. The right hip and leg were then prepped and draped in usual sterile fashion. A posterior lateral approach to the right hip was then performed through a curvilinear incision centered over the greater trochanter. Sharp dialysis cath through subcutaneous tissue down to the IT band gluteal fascia the IT band gluteal fascia incised longitudinally in line with skin incision. The underlyin g greater bursa was excised. The piriformis and external rotators were tagged and taken off the posterior aspect hip joint capsule. Great care was taken throughout the procedure protect the sciatic nerve at all times. Posterior capsulotomy was then performed leaving a large flap for later repair. Hip was internally rotated and dislocated. Femoral neck osteotomy cut was made with Final Cut 10 mm above the lesser trochanter. Femoral head was removed and sent for pathology. Attention drawn the acetabulum. The acetabular labrum was excised per the pulmonary fat was excised. Sequential reaming the acetabular was then performed begin with size 43 and progressing up to 49. I did reamed a little bit with a 50 reamer. A Biomet G7 size 50 mm acetabular shell was then placed in about 40 degrees lateral opening and 20 degrees of anteversion. Was fixed with two 6.5 cancellous acetabular screws. A trial liner was placed. Small osteophytes were taken off anteriorly. Attention drawn to the femur. The proximal femur was entered with a cookie-cutter followed by canal finder. I then broached beginning with size 8 and progressing up to a 12. Got excellent fit of 12. We then trialed the hip with both the standard stem as well as the KLA. I felt like a standard stem length and are a bit too much and I felt leg lengths and soft tissue is more appropriate with the KLA stem. We used a +5/36 mm articular ball. It was stable. Attention drawn toward placing the permanent implants. All trial implants were removed. An apex hole certified hand therapist was placed but highly cross-linked polyethylene liner with a vasquez placed inferior and posterior was impacted in position. A Cleverlizeuy size 12 KLA femoral stem was impacted in position followed by a +5/36 mm ceramic articular ball. Hip was located once again found to be stable. Attention turned toward closing. The wound was irrigated scope soft pulsatile lavage solution. I did inject locally with 60 cc of half percent Marcaine with epinephrine. The posterior capsule and external rotators were then repaired through drill holes in the posterior trochanter with #2 Tycron suture. The IT band gluteal fascia then closed in 1 PDS suture in a running fashion for subcutaneous tissue then closed with 2 layers the deep layer #1 Vicryl suture and subcutaneous tissues with 2-0 Dexon suture in a buried interrupted fashion the skin was closed skin yi. Legs then cleaned dried a sterile dressing both Xeroform, 4 x 4's, ABD pad, foam tape was applied. Patient then transferred to the recovery room in stable condition. Patient tolerated the procedure well and there were no complications. Irwin Dean, my physician imaging assistant, was present for the entire procedure. His assistance was essential and required for appropriate patient positioning, prepping and draping, surgical exposure, performing the technical details of the operation, placement the implants, closure of the wound, and placement of the sterile bandage. I attest to the content of the Intraoperative Record and any orders documented therein. Any exceptions are noted below.
--- NOTE | 2021-01-01 14:55 | XRay Report ---
XR hip 1V RT w pelvis CLINICAL HISTORY: IN PACU - A/P PELVIS and LATERAL HIP DEGENERATIVE ARTHRITIS COMPARISON: 10/30/2010 DISCUSSION: There are postsurgical changes of a total right hip arthroplasty. The acetabular femoral components appear well seated. There is no dislocation. There are overlying skin yi. There is ga s present within soft tissues consistent with recent surgery. There are moderately advanced osteoarth ritic changes involving the left hip. IMPRESSION: Postsurgical changes of a total right hip arthroplasty. ACT 112: Negative or not required by law. Electronically signed by: Solitario Colon M.D. 01/01/2021 2:53 PM
--- NOTE | 2021-01-01 15:05 | Anesthesiology Progress Note ---
Date of Service January 01, 2021 Anesthesia Post Procedure Vital Signs Vital Signs: Temp Pulse Pulse Resp BP BP Pulse Ox 01/01/21 14:55 36.5 C 63 14 112/55 L 94 01/01/21 14:45 36.6 C 66 14 116/57 L 94 01/01/21 14:35 71 15 100/50 L 99 01/01/21 14:25 64 16 107/47 L 99 01/01/21 14:19 36.4 C L 66 10 L 116/54 L 99 01/01/21 09:52 36.7 C 77 20 131/80 97 Pain Intensity Right Hip: Pain Intensity: 7 Transfer of Care Handoff Completed per policy Notes Mental Status: alert / awake / arousable and participated in evaluation Patient Amnestic to Procedure: Yes Nausea / Vomiting: adequately controlled Pain: adequately controlled Airway Patency, RR, SpO2: stable & adequate BP & HR: stable & adequate Hydration State: stable & adequate Anesthetic Complications: no major complications apparent and Pt Satisfied with anesthetic care
[2021-01-01] MEDS ORDERED: bisacodyL 10 MG SUPP PR PRN (15:29)
[2021-01-01] MEDS ORDERED: METOCLOPRAMIDE HCL INJ 5 MG/ML 2 ML VIAL IV PRN (15:29)
[2021-01-01] MEDS ORDERED: CARBOHYDRATES FOR HYPOGLYCEMIA PO PRN (15:29)
[2021-01-01] MEDS ORDERED: GLUCOSE 40% GEL 15 GM TUBE PO PRN (15:29)
[2021-01-01] MEDS ORDERED: DEXTROSE 50% 50 ML SYRINGE IV PRN (15:29)
[2021-01-01] MEDS ORDERED: GLUCOSE 10 TABS/TUBE PO PRN (15:29)
[2021-01-01] MEDS ORDERED: ALUMINUM/MAGNESIUM SUSP 30 ML UDC PO PRN (15:29)
[2021-01-01] MEDS ORDERED: MAGNESIUM HYDROXIDE SUSP 30 ML UDC PO PRN (15:29)
[2021-01-01] MEDS ORDERED: ALBUTEROL HFA 8 GM INHALER INH PRN (15:29)
[2021-01-01] MEDS ORDERED: GLUCAGON FOR INJ 1 MG VIAL SQ PRN (15:29)
[2021-01-01] MEDS ORDERED: PHARMACY GLYCEMIC MGMT CONSULT PRN (15:46)
[2021-01-01] MEDS: SODIUM CHLORIDE 0.9% 1000ML 1,000 ML IV SCH (16:07)
[2021-01-01] MEDS: Scopolamine CHECK PATCH PLACEMENT SCH (16:07)
[2021-01-01] MEDS: KETOROLAC 30 MG/ML VIAL IV SCH ×2 (16:07→22:08)
[2021-01-01] MEDS ORDERED: INSULIN ASPART 100 UNITS/ML 3 ML PEN SQ SCH (16:30)
[2021-01-01] MEDS: ASCORBIC ACID 500 MG TAB PO SCH (17:52)
[2021-01-01] MEDS: FERROUS GLUCONATE 324 MG TAB PO SCH (17:52)
[2021-01-01] MEDS: INSULIN ASPART 100 UNITS/ML 3 ML PEN SC SCH ×2 (17:53→20:59)
--- NOTE | 2021-01-01 20:12 | Pharmacy Report ---
Pharmacy Glycemic Short Note 2 - Date of Service January 01, 2021 - Glycemic Short BSG Results (Last 24 hours): 01/01/21 01/01/21 01/01/21 09:40 14:21 17:32 POC Glucose 184 H 160 H 121 H OUTPATIENT ANTIDIABETIC REGIMEN: * Tresiba 15 units SC HS * Novolog 1 unit per 10 g of CHO or approx. 10 units AC * Patient reports significant adverse reaction to insulin glargine (Toujeo) * HbA1c: 10.4% (11/23/20) ASSESSMENT: * SC is a 65 year old female POD #0 s/p right total hip arthroplasty * No intraoperative steroids given * Patient brought in own Tresiba pen - will utilize while inpatient * Postoperative BSG of 121 mg/dL * Will utilize weight-based stress of 2.5 Novolog parameters and utilize patient's home dose of Tresiba PLAN FOR INPATIENT GLYCEMIC CONTROL: * Basal insulin * Tresiba 15 units SC HS * Bolus insulin * NovoLog per scale ACHS or Q6hrs while NPO * Goal Range: Low 110 mg/dL - High 140 mg/dL * Correction Factor: 30 mg/dL/unit * Nutritional / Prandial insulin per carb ratio of 1 unit per 10 grams CHO consumed * Overnight check tonight with same parameters PLAN FOR DISCHARGE: * tbd
[2021-01-01] MEDS: ceFAZolin 1000MG 1,000 MG/7.5 ML SYR IV SCH (20:13)
[2021-01-01] MEDS: SENNA 8.6 MG TAB PO SCH (20:13)
[2021-01-01] MEDS: DOCUSATE SODIUM 100 MG CAP PO SCH (20:13)
[2021-01-01] MEDS: ASPIRIN 81 MG ECTAB PO SCH (20:13)
[2021-01-01] MEDS: lisinopril 5 MG TAB PO SCH (20:15)
[2021-01-01] MEDS ORDERED: TRANEXAMIC ACID / 0.7% NACL 1,000 MG/100 ML BAG IV SCH (20:15)
[2021-01-01] MEDS: DULoxetine HCL 30 MG CAP PO SCH (20:16)
[2021-01-01] MEDS: GABAPENTIN 100 MG CAP PO SCH (20:16)
[2021-01-01] MEDS: INSULIN DEGLUDEC 100 UNITS/ML SQ SCH (21:00)
[2021-01-01] MEDS: diphenhydrAMINE 50 MG/ML VIAL IV PRN (22:07)
[2021-01-01] MEDS: ACETAMINOPHEN 500 MG TAB PO SCH (22:08)
[2021-01-02] MEDS ORDERED: INSULIN ASPART 100 UNITS/ML 3 ML PEN SC SCH
[2021-01-02] MEDS: Scopolamine CHECK PATCH PLACEMENT SCH ×4 (01:01→20:55)
[2021-01-02] MEDS: KETOROLAC 30 MG/ML VIAL IV SCH ×4 (05:19→20:55)
[2021-01-02] MEDS: ceFAZolin 1000MG 1,000 MG/7.5 ML SYR IV SCH (05:19)
[2021-01-02] MEDS: LEVOTHYROXINE SODIUM 137 MCG TABLET PO SCH (05:31)
[2021-01-02] MEDS: ACETAMINOPHEN 500 MG TAB PO SCH ×3 (05:31→20:54)
[2021-01-02 06:15] LABS: Basophils # (auto) 0.01 K/uL (0-0.2); Basophils % (auto) 0.1 %; Hematocrit (blood only) 33.5 % (37-47); Immature Granulocytes # (auto) 0.02 K/uL (0.00-0.02); Immature Granulocytes % (auto) 0.2 %; Lymphocytes # (auto) 0.96 K/uL (1.2-3.4); Mean Corpuscular Hgb Conc 32.8 g/dL (32-36); Mean Corpuscular Volume 88.4 fL (80-100); Mean Platelet Volume 10.4 fL (7.4-10.4); Monocytes # (auto) 0.41 K/uL (0.11-0.59); Monocytes % (auto) 4.7 %; Platelet Count 204 K/uL (130-400); RDW Coefficient of Variation 13.4 % (11.5-14.5); RDW Standard Deviation 43.7 fL (36.4-46.3); Red Blood Count 3.79 M/uL (4.2-5.4)
[2021-01-02 06:45] LABS: BUN Creatinine Ratio 24.5 (10-20); Calcium 8.2 mg/dl (8.5-10.1); Creatinine Clr Calc Pharmacy 80.4 ml/min; Est GFR (African American) 107.9; Est GFR (Non-African American) 93.1; Potassium 3.9 mmol/L (3.5-5.1)
[2021-01-02] MEDS: lisinopril 5 MG TAB PO SCH ×2 (07:50→20:53)
[2021-01-02] MEDS: ASPIRIN 81 MG ECTAB PO SCH ×2 (07:51→20:52)
[2021-01-02] MEDS: ASCORBIC ACID 500 MG TAB PO SCH ×2 (07:51→16:22)
[2021-01-02] MEDS: GABAPENTIN 100 MG CAP PO SCH ×3 (07:51→20:53)
[2021-01-02] MEDS: FERROUS GLUCONATE 324 MG TAB PO SCH ×2 (07:51→16:22)
[2021-01-02] MEDS: DOCUSATE SODIUM 100 MG CAP PO SCH ×2 (07:51→20:52)
[2021-01-02] MEDS: MULTIVITAMIN TAB PO SCH (07:52)
[2021-01-02] MEDS: CHOLECALCIFEROL 1,000 UNITS 25 MCG TAB PO SCH (07:52)
[2021-01-02] MEDS: NICOTINE 14 MG/24 HR PATCH TD SCH (07:53)
[2021-01-02] MEDS: INSULIN ASPART 100 UNITS/ML 3 ML PEN SC SCH ×4 (08:51→20:59)
[2021-01-02] MEDS: diphenhydrAMINE 50 MG/ML VIAL IV PRN (08:58)
[2021-01-02] MEDS: MONTELUKAST SODIUM 10 MG TABLET PO SCH (10:33)
[2021-01-02] MEDS ORDERED: HYDROmorphone INJ 0.5 MG/0.5 ML SYR IV PRN (11:14)
--- NOTE | 2021-01-02 11:43 | Progress Notes ---
DATE: 01/02/2021 SUBJECTIVE: A 65-year-old female postop day 1 from right hip replacement. She has done well. Had a pretty good night. Pain is controlled. No chest pain or shortness of breath. Not feeling dizzy or lightheaded. OBJECTIVE: VITAL SIGNS: Temperature 37.0. Vital signs stable. GENERAL: Shows a pleasant, middle-aged female. She was sitting up in her bed and talking to someone on the phone when I went in this morning. LUNGS: Clear to auscultation. HEART: Has a regular rate and rhythm. ABDOMEN: Soft, nontender, nondistended. EXTREMITIES: Grossly neurovascularly intact except as follows: Examination of the right hip and leg reveals the dressing to be in place. Leg lengths were equal. Hip is located. She can dorsiflex and plantarflex her foot appropriately. She is neurologically intact. LABORATORY DATA: Hemoglobin 11.0. Hematocrit 33.5. Electrolytes are stable. ASSESSMENT: A 65-year-old female postoperative day 1 from right hip replacement, doing pretty well. Pain is controlled. Hip is located. She is neurologically intact. PLAN: 1. DVT prophylaxis including thigh-high TEDs, SCDs, and aspirin twice a day. 2. PT/OT. Weight bear as tolerated. Right total hip protocol. 3. Pain control, doing well with current pain regimen. 4. Disposition: Plan to discharge to home with some home health likely later today if does okay in therapy.
[2021-01-02] MEDS: oxyCODONE HCL IR 5 MG TAB (IMMEDIATE RELEASE) PO PRN ×2 (13:17→16:24)
[2021-01-02] MEDS: SODIUM CHLORIDE 0.9% 1000ML 1,000 ML IV SCH (14:39)
[2021-01-02] MEDS: DULoxetine HCL 30 MG CAP PO SCH (20:52)
[2021-01-02] MEDS: SENNA 8.6 MG TAB PO SCH (20:54)
[2021-01-02] MEDS: TAPENTADOL HCL ER 50 MG TABCR PO SCH (20:54)
[2021-01-02] MEDS: INSULIN DEGLUDEC 100 UNITS/ML SQ SCH (20:58)
[2021-01-02] MEDS ORDERED: rOPINIRole HCL 0.25 MG TABLET PO SCH (21:00)
[2021-01-03] MEDS: KETOROLAC 30 MG/ML VIAL IV SCH ×2 (03:24→10:00)
[2021-01-03] MEDS: ACETAMINOPHEN 500 MG TAB PO SCH ×2 (07:04→14:30)
[2021-01-03] MEDS: LEVOTHYROXINE SODIUM 137 MCG TABLET PO SCH (07:04)
--- NOTE | 2021-01-03 07:23 | Orthopedic Progress Note ---
Date of Service January 03, 2021 Assessment & Plan (1) Status post total hip replacement, left: Seen and examined by Dr. Hutson. Continue pain management. She is nauseated and vomited last night she said. She takes zofran at home and has some already. PT/OT wbat, hip precautions. dvt prophylaxis. discharge home today with home health Subjective .POD #2 from left michel. Pain is controlled. No chest pain or shortness of breath. She has had nausea and vomiting. Review of Systems All systems reviewed & are unremarkable except as noted in HPI & below. Physical Exam . She is alert and oriented. NAD. VSS Left leg well aigned. Hip located. NVI. able to dorsiflex and plantarflex Results & Data Results & Data Laboratory Results . Diagnostic Findings . PG Care Time/CCT Total # of Minutes Spent Total Time Spent with Patient: Total time spent is greater than 50% in coordination of care (as documented) at patient's floor/unit and/or counseling patient: Coding Level of Care Code 40598 Post Operative Follow-Up Diagnoses Status post total hip replacement, left Z96.642
[2021-01-03] MEDS: NICOTINE 14 MG/24 HR PATCH TD SCH (08:33)
[2021-01-03] MEDS: MONTELUKAST SODIUM 10 MG TABLET PO SCH (08:33)
[2021-01-03] MEDS: MULTIVITAMIN TAB PO SCH (08:33)
[2021-01-03] MEDS: lisinopril 5 MG TAB PO SCH (08:34)
[2021-01-03] MEDS: DOCUSATE SODIUM 100 MG CAP PO SCH (08:34)
[2021-01-03] MEDS: CHOLECALCIFEROL 1,000 UNITS 25 MCG TAB PO SCH (08:34)
[2021-01-03] MEDS: FERROUS GLUCONATE 324 MG TAB PO SCH ×2 (08:34→16:06)
[2021-01-03] MEDS: ASPIRIN 81 MG ECTAB PO SCH (08:34)
[2021-01-03] MEDS: GABAPENTIN 100 MG CAP PO SCH ×2 (08:34→14:30)
[2021-01-03] MEDS: ASCORBIC ACID 500 MG TAB PO SCH ×2 (08:34→16:06)
[2021-01-03] MEDS: Scopolamine CHECK PATCH PLACEMENT SCH ×2 (08:35→15:36)
[2021-01-03] MEDS: TAPENTADOL HCL ER 50 MG TABCR PO SCH (08:35)
[2021-01-03] MEDS ORDERED: INSULIN DEGLUDEC 100 UNITS/ML SQ ONE (09:15)
[2021-01-03] MEDS: oxyCODONE HCL IR 5 MG TAB (IMMEDIATE RELEASE) PO PRN ×2 (09:58→14:30)
[2021-01-03] MEDS: INSULIN ASPART 100 UNITS/ML 3 ML PEN SC SCH ×3 (10:02→17:20)
== END 2021-01-03 19:40 | disposition home or self-care (01) ==
LOC: 3E 09:17 → ASU 09:17

== ENCOUNTER 2021-09-14 10:24 | Observation (INO) ==
[2021-09-14] MEDS ORDERED: ONDANSETRON INJ 2 MG/ML 2 ML VIAL IV STA (10:56)
[2021-09-14] MEDS ORDERED: SODIUM CHLORIDE 0.9% 1000ML 1,000 ML IV SCH (11:00)
[2021-09-14 11:07] LABS: Basophils # (auto) 0.02 K/uL (0-0.2); Basophils % (auto) 0.1 %; Hematocrit (blood only) 38.3 % (37-47); Hemoglobin 12.6 g/dL (12.0-16.0); Immature Granulocytes # (auto) 0.03 K/uL (0.00-0.02); Immature Granulocytes % (auto) 0.2 %; Lymphocytes # (auto) 1.83 K/uL (1.2-3.4); Lymphocytes % (auto) 13.4 %; Mean Corpuscular Hemoglobin 30.4 pg (25-34); Mean Corpuscular Hgb Conc 32.9 g/dL (32-36); Mean Corpuscular Volume 92.3 fL (80-100); Mean Platelet Volume 10.3 fL (7.4-10.4); Monocytes # (auto) 0.74 K/uL (0.11-0.59); Monocytes % (auto) 5.4 %; Neutrophils # (auto) 11.07 K/uL (1.4-6.5); Neutrophils % (auto) 80.9 %; Platelet Count 262 K/uL (130-400); RDW Coefficient of Variation 13.6 % (11.5-14.5); RDW Standard Deviation 45.4 fL (36.4-46.3); Red Blood Count 4.15 M/uL (4.2-5.4); White Blood Count 13.69 K/uL (4.8-10.8)
--- NOTE | 2021-09-14 11:08 | Emergency Department Note ---
Impression & Plan Abdominal pain, Type 1 diabetes mellitus, uncontrolled, Fever, COVID-19, History of biliary stent insertion, Nausea & vomiting ED Provider Note NAME: THUAN ANGEL AGE: 66 SEX: F : 1955 ARRIVES VIA: Walk-In INFORMANT: Patient, ED PROVIDER(S): Phil Mcintosh MD Chief Complaint: Abdominal pain HPI: Patient does present due to concern for right upper abdominal pain ongoing since . The patient states that she had a biliary stent placed with Dr. Lynne Babrosa as she was having "backing up with the liver." Patient has had a cholecystectomy in the past. The patient states that post procedure the patient has had consistent pain in the right upper quadrant and was given oxycodone at home with the patient does not like the way it makes her feel. The patient describes it is constant in nature nonradiating sharp but worsening twinges of sharp pain. The patient has had vomiting most recently this morning nonbloody nonbilious. Patient denies any alcohol or tobacco use. Patient is vaccinated for COVID. Patient did have a temp of 100.7 this morning. The patient did take a Tylenol at home prior to arrival which she believes improved her temp. Patient has had nausea with vomiting. The patient is a diarrhea but was on a postprocedural course of ciprofloxacin thought this may be related to that. Patient [place] any stream or well water or known sick contacts. ROS: See HPI for pertinent positives and negatives. A total of 10 systems were reviewed and otherwise negative. Past medical history: See below Surgical history: See below Social history: See below Physical Exam: GENERAL: Uncomfortable in appearance, wearing a mask. EYE EXAM: Normal conjunctiva. PERRL, no anisocoria and EOM's grossly intact w/o pain. NECK: Supple, no nuchal rigidity, no adenopathy, non-tender. No signs of meningismus. LUNGS: Clear to auscultation. Normal chest wall mechanics. HEART: NSR, no MRG. ABDOMEN: Abdomen soft, right upper quadrant epigastric pain, no pain in the lower abdomen, normo-active bowel sounds, no masses, no rebound or guarding. BACK: No CVA TTP. SKIN: No rashes and no bruising. UPPER EXTREMITIES: Upper extremities are grossly normal. LOWER EXTREMITIES: Grossly normal, no edema. NEURO EXAM: A&O x3, cranial nerves II-XII grossly intact, normal speech, moves all 4 extremities on command w/o issue. Differential diagnoses: Biliary stent issue, appendicitis ovarian cyst, ovarian torsion, ectopic , TOA, PID, infections, diverticulitis, UTI, obstruction, mesenteric ischemia, aortic pathology, inflammatory bowel disease, renal colic, PUD, pancreatitis, biliary pathology, hernia, volvulus, constipation, as well as other pathologies. Course: Patient was seen and evaluated the bedside. Full history physical exam was performed. Imaging Studies: See Below Cardiac monitoring: An order was placed for continuous cardiac monitoring. The monitor shows a rate of 75 with sinus rhythm. MDM: Seen due to concern for abdominal pain and fever. The patient did have a really recent biliary stent placed. Patient denies upper respiratory symptoms but has had nausea vomiting as well as diarrhea. Patient did have blood work completed along with blood cultures and a lactate. CT abdomen pelvis also obtained. Patient is a white count of 13 with a normal H&H and platelet count. Kidney function is unremarkable. The patient does have hyperglycemia at 327. Lactate is normal. LFTs unremarkable including lipase. Urinalysis does not show evidence of obvious infection. Flu negative. Patient CT abdomen pelvis does not show any obvious or concerning findings. The patient does have mild nonspecific colitis. The patient does have signs consistent with recent biliary stent placement. I did speak with the on-call ticket collector or usher and stated that given the patient's recent stent patient fever what the recommendations would be. They recommended staying in the hospital for observation and treatment. The patient already did receive a dose of antibiotics. The patient was noted to be COVID-positive. Patient was admitted to the medicine service by Dr. Manuel. Chest x-ray is negative. Past Med/Surg History Medical History Bilateral hip joint arthritis CAD (coronary artery disease) "Moderate diffuse coronary atherosclerosis with type I left anterior descending artery" per 2019 heart cath. Diabetic retinopathy associated with type 1 diabetes mellitus History of biliary stent insertion Hyperlipidemia Hypertension Hypothyroidism RLS (restless legs syndrome) Tobacco use disorder Type 1 diabetes mellitus, uncontrolled A1C > 10% in 11/2020 Vitamin D deficiency Surgical History History of cholecystectomy History of total left knee replacement Hx of cardiac cath Performed for chest pain syndrome. Diffuse moderate CAD, no stents placed, aggressive risk factor modification recommended. Follows with NAVEEN Gaines at [facility]. S/P ERCP 06/28/19 -- MAC #3, ETT 7.0. Family History Other No significant family history Social History Smoking Status: Never smoker Cigarettes Per Day: 5 cig a day; Second Hand Exposure: No; Hx Alcohol Use: No Hx Substance Use: No Preferred Language: Salvadorean Communication Ability: Effective Visual Impairment: No Limitations Hearing Ability: Normal Service Center Technician Required: No Beliefs That Will Affect Care: None Current Living Situation: Family Current Living Situation Comment: son lives with her Feels Safe at Home: Yes Assistive Devices: Walker Immunizations: Vaccinated for COVID-19 Allergies Allergies Allergy/AdvReac Type Severity Reaction Status Date / Time Sulfa (Sulfonamide Allergy Intermediate HIVES Verified 09/14/21 12:13 Antibiotics) insulin glargine AdvReac Severe SEE COMMENT Verified 09/14/21 12:13 [From Toujeo SoloStar U-300 Insulin] Home Meds Home Medications Medication Instructions Recorded Confirmed albuterol sulfate 90 mcg/actuation 2 puff INHALATION QID PRN 06/27/19 09/14/21 aerosol inhaler (Ventolin HFA) montelukast 10 mg tablet 10 mg PO QAM 06/27/19 09/14/21 cholecalciferol (vitamin D3) 50 50 mcg PO QAM 05/21/20 09/14/21 mcg (2,000 unit) capsule (Vitamin D3) gabapentin 100 mg capsule 100 mg PO TID 05/21/20 09/14/21 levothyroxine 137 mcg tablet 137 mcg PO QAM 08/27/20 09/14/21 ropinirole 0.5 mg tablet 0.5 mg PO QPM 10/30/20 09/14/21 aspirin 81 mg tablet,delayed 81 mg PO BID tab 02/18/21 09/14/21 release (Adult Low Dose Aspirin) insulin aspart U-100 100 unit/mL 30 unit SUBCUT DAILY ml 02/18/21 09/14/21 (3 mL) subcutaneous pen (Novolog Flexpen U-100 Insulin aspart) cholecalciferol (vitamin D3) 25 25 mcg PO QAM 09/14/21 09/14/21 mcg (1,000 unit) tablet (Vitamin D3) losartan 25 mg tablet 25 mg PO QAM 09/14/21 09/14/21 ondansetron 4 mg disintegrating 4 mg PO Q6H PRN 09/14/21 09/14/21 tablet Previous Rx's Medication Instructions Recorded rosuvastatin 40 mg tablet (Crestor) 40 mg PO DAILY #90 tab 05/06/21 insulin degludec 100 unit/mL (3 15 unit SUBCUT HS 90 Days #13.5 ml 08/02/21 mL) subcutaneous pen (Tresiba FlexTouch U-100 insulin) Results & Data (ED) Vital Signs Vital Signs - 24 hr 09/14/21 10:39 09/14/21 11:04 09/14/21 11:09 Temperature 36.8 C Temperature Source Temporal Artery Scan Pulse Rate 99 H Pulse Rate [Apical] 75 Pulse Rate from SpO2 Sensor Respiratory Rate 18 14 Respiratory Effort / Characteristics Non-Labored Respiratory Depth Normal Blood Pressure 146/80 H Blood Pressure [Left Arm] 138/73 Blood Pressure Mean 102 Blood Pressure Mean [Left Arm] 94 Pulse Oximetry 97 96 Oxygen Delivery Method Room Air Room Air Room Air Sepsis Recent Fever Within 48 Hours No Sepsis New/Unexplained Change in Mental Status No Sepsis Action Taken by Nursing No Action Required 09/14/21 11:30 09/14/21 12:00 09/14/21 12:30 Temperature Temperature Source Pulse Rate 75 72 70 Pulse Rate [Apical] Pulse Rate from SpO2 Sensor 74 71 70 Respiratory Rate 23 19 19 Respiratory Effort / Characteristics Respiratory Depth Blood Pressure 159/69 H Blood Pressure [Left Arm] Blood Pressure Mean 99 Blood Pressure Mean [Left Arm] Pulse Oximetry 98 98 98 Oxygen Delivery Method Room Air Room Air Room Air Sepsis Recent Fever Within 48 Hours Sepsis New/Unexplained Change in Mental Status Sepsis Action Taken by Nursing 09/14/21 13:00 Temperature Temperature Source Pulse Rate 67 Pulse Rate [Apical] Pulse Rate from SpO2 Sensor 66 Respiratory Rate 23 Respiratory Effort / Characteristics Respiratory Depth Blood Pressure 143/69 H Blood Pressure [Left Arm] Blood Pressure Mean 93 Blood Pressure Mean [Left Arm] Pulse Oximetry 97 Oxygen Delivery Method Room Air Sepsis Recent Fever Within 48 Hours Sepsis New/Unexplained Change in Mental Status Sepsis Action Taken by Group Home Medications Current Medication List: was personally reviewed by me Laboratory Data Attestation: I reviewed the patient's lab results. Result diagrams: 09/14/21 10:54 09/14/21 10:54 Lab Results 09/14/21 09/14/21 09/14/21 Range/Units 10:54 10:54 12:21 WBC 13.69 H (4.8-10.8) K/uL RBC 4.15 L (4.2-5.4) M/uL Hgb 12.6 (12.0-16.0) g/dL Hct 38.3 (37-47) % MCV 92.3 (80-100) fL MCH 30.4 (25-34) pg MCHC 32.9 (32-36) g/dL RDW Std Deviation 45.4 (36.4-46.3) fL RDW Coeff of Kandy 13.6 (11.5-14.5) % Plt Count 262 (130-400) K/uL MPV 10.3 (7.4-10.4) fL Immature Gran % (Auto) 0.2 % Neut % (Auto) 80.9 % Lymph % (Auto) 13.4 % [place] % (Auto) 5.4 % Eos % (Auto) 0.0 % Baso % (Auto) 0.1 % Neut # (Auto) 11.07 H (1.4-6.5) K/uL Lymph # (Auto) 1.83 (1.2-3.4) K/uL [place] # (Auto) 0.74 H (0.11-0.59) K/uL Eos # (Auto) 0.00 (0-0.5) K/uL Baso # (Auto) 0.02 (0-0.2) K/uL Immature Gran # (Auto) 0.03 H (0.00-0.02) K/uL Sodium 135 L (136-145) mmol/L Potassium 4.1 (3.5-5.1) mmol/L Chloride 101 (98-107) mmol/L Carbon Dioxide 26 (21-32) mmol/L Anion Gap 8 (3-11) BUN 8 (6-23) mg/dl Creatinine 0.68 (0.6-1.2) mg/dl Est Cr Clr Drug Dosing 72.2 ml/min Est GFR ( Amer) 107.1 ml/min Est GFR (Non-Af Amer) 92.4 ml/min BUN/Creatinine Ratio 11.8 (10-20) Glucose 327 H* (70-99(Fasting)) mg/dl Lactate 0.8 (0.4-2.0) mmol/L Calcium 9.5 (8.5-10.1) mg/dl Total Bilirubin 0.6 (0.2-1.0) mg/dl AST 14 (13-39) U/L ALT 31 (7-52) U/L Alkaline Phosphatase 61 (34-104) U/L Total Protein 7.0 (6.0-8.3) gm/dl Albumin 4.1 (3.4-5.0) gm/dl Globulin 2.9 (2.5-4.0) gm/dl Albumin/Globulin Ratio 1.4 (0.9-2) Lipase 19 (11-82) U/L Administered Medications Acetaminophen (Acetaminophen 325 Mg Tab) 650 mg PO Q4H PRN PRN Reason: pain/fever Stop: 10/14/21 13:06 Last Admin: 09/14/21 15:46 Dose: 650 mg Documented by: [id number] Gabapentin (Gabapentin 100 Mg Cap) 100 mg PO TID [facility] Stop: 10/14/21 13:59 Last Admin: 09/14/21 14:41 Dose: 100 mg Documented by: [id number] Insulin Aspart (Insulin Aspart Per Unit) 0 units SQ ACHS [facility]; Protocol Stop: 10/14/21 15:29 Last Admin: 09/14/21 15:37 Dose: 3 units Documented by: [id number] Cosigned by: [id number] Ondansetron HCl (Ondansetron Inj 2 Mg/Ml 2 Ml Vial) 4 mg IV Q6H PRN PRN Reason: Nausea Stop: 10/14/21 13:06 Last Admin: 09/14/21 15:46 Dose: 4 mg Documented by: [id number] Discontinued Medications Sodium Chloride (Nss 1000ml) 1,000 mls @ 999 mls/hr IV .Q1H1M [place] Stop: 09/14/21 12:00 Last Infusion: 09/14/21 12:00 Dose: 0 mls/hr Documented by: [id number] Admin: 09/14/21 10:59 Dose: 999 mls/hr Documented by: [id number] Piperacillin Sod/Tazobactam Sod (Zosyn) 4.5 gm in 120 mls @ 240 mls/hr IV NOW ONE Stop: 09/14/21 12:18 Last Infusion: 09/14/21 13:07 Dose: 0 mls/hr Documented by: [id number] Admin: 09/14/21 12:37 Dose: 240 mls/hr Documented by: [id number] Ioversol (Optiray 320 100ml) 96 ml IV ONCE ONE Stop: 09/14/21 11:48 Last Admin: 09/14/21 11:47 Dose: 96 ml Documented by: [id number] Morphine Sulfate (Morphine Sulfate 4 Mg/Ml 1 Ml Carp\\Vial) 4 mg IV NOW STA Stop: 09/14/21 11:29 Last Admin: 09/14/21 11:33 Dose: 4 mg Documented by: [id number] Ondansetron HCl (Ondansetron Inj 2 Mg/Ml 2 Ml Vial) 4 mg IV NOW STA Stop: 09/14/21 10:57 Last Admin: 09/14/21 11:01 Dose: 4 mg Documented by: [id number] Imaging Data Radiologist's Impression: Abdomen/Pelvis CT 09/14/21 11:06 CT SCAN OF THE ABDOMEN AND PELVIS WITH IV CONTRAST CLINICAL HISTORY: Generalized abdominal pain. Recent bile duct stent. COMPARISON STUDY: Abdominal CT dated 01/05/2020. TECHNIQUE: Following the IV administration of 95 cc of Optiray 320, CT scan of the abdomen and pelvis is performed from the lung bases to the proximal femora. Images are reviewed in the axial, sagittal, and coronal planes. IV contrast was administered without complication. A dose lowering technique was utilized adhering to the principles of ALARA. CT DOSE: 266.56 mGy.cm FINDINGS: Lung bases: The heart is normal in size and without pericardial effusion. The lung bases are clear. Liver: The contrast-enhanced liver is normal in size, contour, and attenuation. A common bile duct stent is in place. Pneumobilia suggests patency of the stent. There is only mild intrahepatic biliary ductal dilatation. The hepatic veins and portal veins are patent. Gallbladder: Surgically absent noting clips in the gallbladder fossa. Spleen: Normal in size and attenuation. There are numerous calcified splenic granulomas. Pancreas: The pancreas is atrophic and grossly unremarkable. Adrenal glands: Unremarkable. Kidneys: The contrast enhanced kidneys are normal in size and without hydronephrosis. The kidneys enhance symmetrically. Abdominal vasculature: There is advanced atherosclerotic calcification and ectasia of the abdominal aorta. Bowel: There is mild colonic diverticulosis without CT evidence of acute diverticulitis. No bowel obstruction is seen. Duodenal diverticula are noted. There is residual enteric contrast in the distal colon. Question mild diffuse colonic wall thickening. There is no significant surrounding infiltration. The appendix is not identified and reported surgically absent. Peritoneum: There is no intraperitoneal free air or abdominal ascites. Lymphadenopathy: None. Pelvic viscera: Evaluation of the pelvis is degraded by streak artifact from a right hip arthroplasty. The bladder is distended but otherwise normal in appearance. The uterus is surgically absent. No adnexal lesion is seen. Skeletal structures: The skeletal structures are osteopenic. No lytic or blastic lesions are seen. There is mild lumbosacral spondylosis. A right hip arthroplasty is in place. Advanced arthritic change is noted in the left hip. IMPRESSION: 1. Question mild diffuse colonic wall thickening. No significant surrounding inflammation is identified. Correlate clinically for evidence of a mild nonspecific colitis. 2. A common bile duct stent is in place. Pneumobilia suggests patency of the stent, and there is only mild intrahepatic biliary ductal dilatation. The degree of dilatation is similar to the 01/05/2020 examination. 3. Mild colonic diverticulosis without CT evidence of acute diverticulitis. 4. Additional findings as above. ACT 112: Negative or not required by law. Electronically signed by: Isreal Roldan M.D. 09/14/2021 12:07 PM Chest X-Ray 09/14/21 12:46 SINGLE VIEW CHEST CLINICAL HISTORY: Fever. FINDINGS: An AP, portable, upright chest radiograph is compared to study dated 05/21/2020 and correlated with chest CT dated 03/07/2021. The cardiomediastinal silhouette is unremarkable. A calcified granuloma is again seen in the left midlung. The lungs and pleural spaces are otherwise clear. No pneumothorax is seen. The bony thorax is grossly intact. IMPRESSION: No active disease in the chest. ACT 112: Negative or not required by law. Electronically signed by: Isreal Roldan M.D. 09/14/2021 1:21 PM Discharge Plan Visit Data Chief Complaint: Abdominal Pain Stated Complaint: ABD PAIN,NAUSEA,FEVER ED Provider: Phil Mcintosh Discharge Problem: Abdominal pain, Type 1 diabetes mellitus, uncontrolled, Fever, COVID-19, History of biliary stent insertion, Nausea & vomiting Patient Disposition: Admitted As Inpatient Discharge Instructions Interventions: ED Discharge Assessment Last Done: 09/14/21 17:05
[2021-09-14] MEDS ORDERED: MoRPHine SULFATE 4 MG/ML 1 ML CARP\\VIAL IV STA (11:28)
[2021-09-14 11:33] LABS: Albumin Globulin Ratio 1.4 (0.9-2); Albumin Level 4.1 gm/dl (3.4-5.0); BUN Creatinine Ratio 11.8 (10-20); Bilirubin,Total 0.6 mg/dl (0.2-1.0); Calcium 9.5 mg/dl (8.5-10.1); Creatinine Clr Calc Pharmacy 72.2 ml/min; Est GFR (African American) 107.1 ml/min; Est GFR (Non-African American) 92.4 ml/min; Globulin 2.9 gm/dl (2.5-4.0); Potassium 4.1 mmol/L (3.5-5.1)
[2021-09-14] MEDS ORDERED: OPTIRAY 320 100ml IV ONE (11:47)
[2021-09-14] MEDS ORDERED: PIPERACILL/TAZOBAC CONSULT ACTIVE PRN (11:49)
[2021-09-14] MEDS ORDERED: PIPERACILLIN/TAZOBACTAM 4.5 GM/120 ML BAG IV ONE (11:49)
--- NOTE | 2021-09-14 12:08 | CT Scan Report ---
CT SCAN OF THE ABDOMEN AND PELVIS WITH IV CONTRAST CLINICAL HISTORY: Generalized abdominal pain. Recent bile duct stent. COMPARISON STUDY: Abdominal CT dated 01/05/2020. TECHNIQUE: Following the IV administration of 95 cc of Optiray 320, CT scan of the abdomen and pelvi s is performed from the lung bases to the proximal femora. Images are reviewed in the axial, sagittal , and coronal planes. IV contrast was administered without complication. A dose lowering technique wa s utilized adhering to the principles of ALARA. CT DOSE: 266.56 mGy.cm FINDINGS: Lung bases: The heart is normal in size and without pericardial effusion. The lung bases are clear. Liver: The contrast-enhanced liver is normal in size, contour, and attenuation. A common bile duct st ent is in place. Pneumobilia suggests patency of the stent. There is only mild intrahepatic biliary d uctal dilatation. The hepatic veins and portal veins are patent. Gallbladder: Surgically absent noting clips in the gallbladder fossa. Spleen: Normal in size and attenuation. There are numerous calcified splenic granulomas. Pancreas: The pancreas is atrophic and grossly unremarkable. Adrenal glands: Unremarkable. Kidneys: The contrast enhanced kidneys are normal in size and without hydronephrosis. The kidneys enh ance symmetrically. Abdominal vasculature: There is advanced atherosclerotic calcification and ectasia of the abdominal a jonathan. Bowel: There is mild colonic diverticulosis without CT evidence of acute diverticulitis. No bowel obs truction is seen. Duodenal diverticula are noted. There is residual enteric contrast in the distal co maegan. Question mild diffuse colonic wall thickening. There is no significant surrounding infiltration. The appendix is not identified and reported surgically absent. Peritoneum: There is no intraperitoneal free air or abdominal ascites. Lymphadenopathy: None. Pelvic viscera: Evaluation of the pelvis is degraded by streak artifact from a right hip arthroplasty . The bladder is distended but otherwise normal in appearance. The uterus is surgically absent. No ad nexal lesion is seen. Skeletal structures: The skeletal structures are osteopenic. No lytic or blastic lesions are seen. Th ere is mild lumbosacral spondylosis. A right hip arthroplasty is in place. Advanced arthritic change is noted in the left hip. IMPRESSION: 1. Question mild diffuse colonic wall thickening. No significant surrounding inflammation is identifi ed. Correlate clinically for evidence of a mild nonspecific colitis. 2. A common bile duct stent is in place. Pneumobilia suggests patency of the stent, and there is only mild intrahepatic biliary ductal dilatation. The degree of dilatation is similar to the 01/05/2020 ex amination. 3. Mild colonic diverticulosis without CT evidence of acute diverticulitis. 4. Additional findings as above. ACT 112: Negative or not required by law. Electronically signed by: Isreal Roldan M.D. 09/14/2021 12:07 PM
[2021-09-14] MEDS ORDERED: ALBUTEROL HFA 8 GM INHALER INH PRN (13:00)
[2021-09-14] MEDS ORDERED: PHARMACY GLYCEMIC MGMT CONSULT PRN (13:02)
[2021-09-14] MEDS ORDERED: ONDANSETRON INJ 2 MG/ML 2 ML VIAL IV PRN (13:07)
[2021-09-14] MEDS ORDERED: POLYETHYLENE (MIRALAX) 17 GM PACK PO PRN (13:07)
[2021-09-14] MEDS ORDERED: CARBOHYDRATES FOR HYPOGLYCEMIA PO PRN (13:15)
[2021-09-14] MEDS ORDERED: GLUCOSE 10 TABS/TUBE PO PRN (13:15)
[2021-09-14] MEDS ORDERED: DEXTROSE 50% 50 ML SYRINGE IV PRN (13:15)
[2021-09-14] MEDS ORDERED: GLUCOSE 40% GEL 15 GM TUBE PO PRN (13:15)
[2021-09-14] MEDS ORDERED: GLUCAGON FOR INJ 1 MG VIAL IM PRN (13:15)
--- NOTE | 2021-09-14 13:22 | XRay Report ---
SINGLE VIEW CHEST CLINICAL HISTORY: Fever. FINDINGS: An AP, portable, upright chest radiograph is compared to study dated 05/21/2020 and correlat ed with chest CT dated 03/07/2021. The cardiomediastinal silhouette is unremarkable. A calcified granu chris is again seen in the left midlung. The lungs and pleural spaces are otherwise clear. No pneumoth orax is seen. The bony thorax is grossly intact. IMPRESSION: No active disease in the chest. ACT 112: Negative or not required by law. Electronically signed by: Isreal Roldan M.D. 09/14/2021 1:21 PM
[2021-09-14] MEDS ORDERED: INSULIN ASPART PER UNIT SQ SCH (13:30)
[2021-09-14] MEDS ORDERED: INSULIN HUMAN REGULAR PER UNIT 5 UNITS in SYRINGE 4.95 ML IV ONE (13:30)
[2021-09-14 13:43] LABS: Appearance Urine Clear (Clear); Bilirubin Urine Negative (Negative); Blood Urine Negative (Negative); Color Urine Yellow; Glucose Urine UA 3+ (Negative); Ketones Urine Negative (Negative); Leukocyte Esterase Urine Negative (Negative); Nitrite Urine Negative (Negative); Protein Urine Negative (Negative); Specific Gravity Urine 1.037 (1.000-1.030); Urobilinogen Urine Negative (Negative)
--- NOTE | 2021-09-14 13:58 | History & Physical Report ---
Date of Service September 14, 2021 Assessment & Plan (1) Right upper quadrant abdominal pain: Plan: Worsening RUQ abdominal pain and fever in 66 yo female with recent bout of COVID 19 supposedly diagnosed in 08/28/21 Patient had recent biliary stent placed 2 days ago. Follows with [facility] WILLIAM. Consulted Dr. Wilson as cross covering over the weekend. LFTs are normal. will obtain procal in am (2) COVID-19: Plan: isolation precaution fr now until test from 08/28 is confirmed. On room air, no indication for decadron or remdesevir (3) Uncontrolled type 1 diabetes mellitus with hyperglycemia: Plan: glycemic control (4) Hyperlipidemia: Plan: resume home meds (5) Hypertension: Plan: resume home meds DVT proph: lovenox History of Present Illness Chief Complaint: RUQ abd pain Primary Care Provider: Yaz Pantoja This is a pleasant 66 yo female with past medical histpry described below, PSH: cholescytectomy (1994) presents with a 6 month hsitory of intermittent abdominal pain. Patient reports this has been an ongoing issue, as she has had an ERCP 2 years ago for this problem. Patient has had intermitent RUQ abbdominal pain for years. As her pain during this 6 month episode did not improve, she seeked her Gastro from El[facility] Barswell Patient had an ERCP and billiary stent placed this past (2 days ago). Patient reports they found multiple stones. Pain however, did not improve. Patient was taking cipro as an outpatient. Allergies Allergy/AdvReac Type Severity Reaction Status Date / Time Sulfa (Sulfonamide Allergy Intermediate HIVES Verified 09/14/21 12:13 Antibiotics) insulin glargine AdvReac Severe SEE COMMENT Verified 09/14/21 12:13 [From [facility] SoloStar U-300 Insulin] Home Medications Medication Instructions Recorded Confirmed Type albuterol sulfate 90 mcg/actuation 2 puff INHALATION QID PRN 06/27/19 09/14/21 History aerosol inhaler (Ventolin HFA) montelukast 10 mg tablet 10 mg PO QAM 06/27/19 09/14/21 History cholecalciferol (vitamin D3) 50 50 mcg PO QAM 05/21/20 09/14/21 History mcg (2,000 unit) capsule (Vitamin D3) gabapentin 100 mg capsule 100 mg PO TID 05/21/20 09/14/21 History levothyroxine 137 mcg tablet 137 mcg PO QAM 08/27/20 09/14/21 History ropinirole 0.5 mg tablet 0.5 mg PO QPM 10/30/20 09/14/21 History aspirin 81 mg tablet,delayed 81 mg PO BID tab 02/18/21 09/14/21 History release (Adult Low Dose Aspirin) insulin aspart U-100 100 unit/mL 30 unit SUBCUT DAILY ml 02/18/21 09/14/21 Hist ory (3 mL) subcutaneous pen (Novolog Flexpen U-100 Insulin aspart) rosuvastatin 40 mg tablet (Crestor) 40 mg PO DAILY #90 tab 05/06/21 09/14/21 Rx insulin degludec 100 unit/mL (3 15 unit SUBCUT HS 90 Days #13.5 ml 08/02/21 09/14/21 Rx mL) subcutaneous pen (Tresiba FlexTouch U-100 insulin) cholecalciferol (vitamin D3) 25 25 mcg PO QAM 09/14/21 09/14/21 History mcg (1,000 unit) tablet (Vitamin D3) losartan 25 mg tablet 25 mg PO QAM 09/14/21 09/14/21 History ondansetron 4 mg disintegrating 4 mg PO Q6H PRN 09/14/21 09/14/21 History tablet Past Med/Surg History Medical History Bilateral hip joint arthritis CAD (coronary artery disease) "Moderate diffuse coronary atherosclerosis with type I left anterior descending artery" per 2019 heart cath. Diabetic retinopathy associated with type 1 diabetes mellitus History of biliary stent insertion Hyperlipidemia Hypertension Hypothyroidism RLS (restless legs syndrome) Tobacco use disorder Type 1 diabetes mellitus, uncontrolled A1C > 10% in 11/2020 Vitamin D deficiency Surgical History History of cholecystectomy History of total left knee replacement Hx of cardiac cath Performed for chest pain syndrome. Diffuse moderate CAD, no stents placed, aggressive risk factor modification recommended. Follows with NAVEEN Gaines at [facility]. S/P ERCP 06/28/19 -- MAC #3, ETT 7.0. Family History Other No significant family history Social History Smoking Status: Current every day smoker Cigarettes Per Day: 5 cig a day; Second Hand Exposure: Yes; Tobacco Cessation Education Requested by Patient: No Hx Alcohol Use: No Hx Substance Use: No Preferred Language: Vietnamese Communication Ability: Effective Visual Impairment: No Limitations Hearing Ability: Normal Rn Transitional Required: No Beliefs That Will Affect Care: None Current Living Situation: Family Current Living Situation Comment: with son Other Information That Helps Us Care for You: No Feels Safe at Home: Yes Assistive Devices: Denture - Upper and Glasses Assistive Devices Comment: partial Review of Systems Constitutional: no fever and no chills Eyes: no blind spots Ear, Nose, Mouth, Throat: no ear pain and no tinnitus Respiratory: no cough Cardiovascular: no chest pain Gastrointestinal: + abdominal pain Genitourinary: no dysuria Musculoskeletal: no back pain Integumentary: no acne Neurologic: no gait abnormality and no falls Psychiatric: no behavioral changes Endocrine: no polyphagia Allergy / Immunological: no GI upset with certain foods and no lip swelling Physical Exam Constitutional: WD/WN, vitals as above Eyes: PERRL, conjunctivae normal, anicteric sclerae ENMT: external ear and nose normal, oropharynx normal Neck: trachea midline, no thyromegaly Respiratory: normal respiratory effort, lungs clear to auscultation Cardiovascular: RRR, no murmur, no edema Gastrointestinal (Abdomen): Inspection/Auscultation: abdomen normal to inspection Percussion/Palpation: + abdomen tender (tender to superficial palpation on the RUQ.) and + hepatosplenomegaly Musculoskeletal: no cyanosis or clubbing, extremities motor strength 5/5 Skin: no rashes, warm and dry Psychiatric: A+Ox3, euthymic affect Lymphatic: no cervical or axillary lymphadenopathy Results & Data Results & Data ([facility]) Vital Signs (Past 12 Hours) Vital Signs Temp Pulse Pulse Resp BP BP Pulse Ox 09/14/21 13:30 65 16 132/69 98 09/14/21 13:00 67 23 143/69 H 97 09/14/21 12:30 70 19 98 09/14/21 12:00 72 19 98 09/14/21 11:30 75 23 159/69 H 98 09/14/21 11:04 75 14 138/73 96 09/14/21 10:39 36.8 C 99 H 18 146/80 H 97 PG Care Time/CCT Total # of Minutes Spent Total Time Spent with Patient: Total time spent is greater than 50% in coordination of care (as documented) at patient's floor/unit and/or counseling patient: Coding Level of Care Code INT OBSERVATION CARE 70M LVL 3 Diagnoses Uncontrolled type 1 diabetes mellitus with hyperglycemia E10.65 Hyperlipidemia E78.2 Hyperlipidemia type: mixed hyperlipidemia Hypertension I10 Hypertension type: essential hypertension Right upper quadrant abdominal pain R10.11 COVID-19 U07.1 (1) Hyperlipidemia Hyperlipidemia type: mixed hyperlipidemia Qualified Code(s): E78.2 - Mixed hyperlipidemia (2) Hypertension Hypertension type: essential hypertension Qualified Code(s): I10 - Essential (primary) hypertension
[2021-09-14 13:59] LABS: Influenza A virus by PCR Negative (Negative); Influenza B virus by PCR Negative (Negative)
[2021-09-14] MEDS: GABAPENTIN 100 MG CAP PO SCH ×2 (14:41→21:26)
[2021-09-14] MEDS: INSULIN DEGLUDEC 100 UNITS/ML SQ SCH ×2 (15:17→21:03)
--- NOTE | 2021-09-14 15:17 | Gastrointestinal Consultation ---
Date of Consultation September 14, 2021 Assessment & Plan (1) Right upper quadrant abdominal pain: (2) Fever: imaging shows patent stent, LFTs normal. unclear etiology for fevers but consider biliary source vs. covid or other etiology. recs: blood cultures check respiratory panel start zosyn supportive care, pain control prn Thank you for allowing me to participate in the care of this patient. History of Present Illness History of Present Illness 66 yo female who is s/p ERCP with stent placement this past week here with RUQ abd pains and fevers. biliary stent was placed by Dr. Estrada this past week. Patient is s/p CCY. She has had persistent RUQ pains and has developed fevers now, temp was 100.7 this morning. also notes nausea and vomiting. labs reviewed. Allergies Allergy/AdvReac Type Severity Reaction Status Date / Time Sulfa (Sulfonamide Allergy Intermediate HIVES Verified 09/14/21 12:13 Antibiotics) insulin glargine AdvReac Severe SEE COMMENT Verified 09/14/21 12:13 [From [facility] SoloStar U-300 Insulin] Home Medications Medication Instructions Recorded Confirmed Type albuterol sulfate 90 mcg/actuation 2 puff INHALATION QID PRN 06/27/19 09/14/21 History aerosol inhaler (Ventolin HFA) montelukast 10 mg tablet 10 mg PO QAM 06/27/19 09/14/21 History cholecalciferol (vitamin D3) 50 50 mcg PO QAM 05/21/20 09/14/21 History mcg (2,000 unit) capsule (Vitamin D3) gabapentin 100 mg capsule 100 mg PO TID 05/21/20 09/14/21 History levothyroxine 137 mcg tablet 137 mcg PO QAM 08/27/20 09/14/21 History ropinirole 0.5 mg tablet 0.5 mg PO QPM 10/30/20 09/14/21 History aspirin 81 mg tablet,delayed 81 mg PO BID tab 02/18/21 09/14/21 History release (Adult Low Dose Aspirin) insulin aspart U-100 100 unit/mL 30 unit SUBCUT DAILY ml 02/18/21 09/14/21 History (3 mL) subcutaneous pen (Novolog Flexpen U-100 Insulin aspart) rosuvastatin 40 mg tablet (Crestor) 40 mg PO DAILY #90 tab 05/06/21 09/14/21 Rx insulin degludec 100 unit/mL (3 15 unit SUBCUT HS 90 Days #13.5 ml 08/02/21 09/14/21 Rx mL) subcutaneous pen (Tresiba FlexTouch U-100 insulin) cholecalciferol (vitamin D3) 25 25 mcg PO QAM 09/14/21 09/14/21 History mcg (1,000 unit) tablet (Vitamin D3) losartan 25 mg tablet 25 mg PO QAM 09/14/21 09/14/21 History ondansetron 4 mg disintegrating 4 mg PO Q6H PRN 09/14/21 09/14/21 History tablet Patient History Medical History Bilateral hip joint arthritis CAD (coronary artery disease) "Moderate diffuse coronary atherosclerosis with type I left anterior descending artery" per 2019 heart cath. Diabetic retinopathy associated with type 1 diabetes mellitus History of biliary stent insertion Hyperlipidemia Hypertension Hypothyroidism RLS (restless legs syndrome) Tobacco use disorder Type 1 diabetes mellitus, uncontrolled A1C > 10% in 11/2020 Vitamin D deficiency Surgical History History of cholecystectomy History of total left knee replacement Hx of cardiac cath Performed for chest pain syndrome. Diffuse moderate CAD, no stents placed, aggressive risk factor modification recommended. Follows with NAVEEN Gaines at [facility]. S/P ERCP 06/28/19 -- MAC #3, ETT 7.0. Family History Other No significant family history Social History Smoking Status: Never smoker Cigarettes Per Day: 5 cig a day; Second Hand Exposure: No; Hx Alcohol Use: No Hx Substance Use: No Preferred Language: Comoran Communication Ability: Effective Visual Impairment: No Limitations Hearing Ability: Normal Ditch Digger Required: No Beliefs That Will Affect Care: None Current Living Situation: Family Current Living Situation Comment: son lives with her Feels Safe at Home: Yes Assistive Devices: Walker Review of Systems Constitutional: no fever, no chills and no weight loss Eyes: as per Subjective / HPI Ear, Nose, Mouth, Throat: as per Subjective / HPI Respiratory: no dyspnea and no dyspnea on exertion Cardiovascular: no chest pain and no palpitations Gastrointestinal: as per Subjective / HPI Musculoskeletal: no joint pain and no swelling Integumentary: no rash and no lesions Neurologic: no numbness and no paresthesia Psychiatric: no depression and no anxiety Endocrine: no fatigue Hematologic / Lymphatic: no easy bleeding and no easy bruising Physical Exam Constitutional: WD/WN, vitals as above Eyes: EOM intact bilaterally Neck: normal visual inspection Respiratory: normal respiratory effort, lungs clear to auscultation Cardiovascular: RRR, no murmur, no edema Gastrointestinal (Abdomen): Inspection/Auscultation: abdomen normal to inspection; abdomen not distended Percussion/Palpation: + abdomen tender (RUQ) and abdomen soft; no hepatosplenomegaly Musculoskeletal: Extremities: no cyanosis Gait: normal gait Skin: no rashes, warm and dry Neurologic: moves all extremities Psychiatric: A+Ox3, euthymic affect Results & Data ([facility]) Vital Signs (Past 12 Hours) Vital Signs Temp Pulse Pulse Resp BP BP Pulse Ox 09/14/21 14:30 90 25 H 129/61 98 09/14/21 14:00 72 18 98 09/14/21 13:30 65 16 132/69 98 09/14/21 13:00 67 23 143/69 H 97 09/14/21 12:30 70 19 98 09/14/21 12:00 72 19 98 09/14/21 11:30 75 23 159/69 H 98 09/14/21 11:04 75 14 138/73 96 09/14/21 10:39 36.8 C 99 H 18 146/80 H 97 PG Care Time/CCT Total # of Minutes Spent Total Time Spent with Patient: Total time spent is greater than 50% in coordination of care (as documented) at patient's floor/unit and/or counseling patient: Coding Level of Care Code 63388 Inpt Consult Level 4 Diagnoses Right upper quadrant abdominal pain R10.11 Fever R50.9
[2021-09-14] MEDS: INSULIN ASPART PER UNIT SQ SCH ×3 (15:37→22:21)
[2021-09-14] MEDS: ACETAMINOPHEN 325 MG TAB PO PRN ×2 (15:46→21:16)
[2021-09-14] MEDS: PIPERACILLIN/TAZOBACTAM 3.375 GM in DEXTROSE 5% 100 ML IV SCH (19:10)
[2021-09-14] MEDS: ASPIRIN 81 MG ECTAB PO SCH (21:14)
[2021-09-14] MEDS: rOPINIRole HCL 0.25 MG TABLET PO SCH (21:25)
[2021-09-14] MEDS ORDERED: ENOXAPARIN INJ 40 MG/0.4 ML SYR SQ ONE (23:02)
[2021-09-15] MEDS: PIPERACILLIN/TAZOBACTAM 3.375 GM in DEXTROSE 5% 100 ML IV SCH ×3 (01:39→18:07)
[2021-09-15] MEDS: ACETAMINOPHEN 325 MG TAB PO PRN ×2 (01:40→09:25)
[2021-09-15 05:42] LABS: Basophils # (auto) 0.03 K/uL (0-0.2); Basophils % (auto) 0.5 %; Hematocrit (blood only) 36.4 % (37-47); Hemoglobin 11.7 g/dL (12.0-16.0); Immature Granulocytes # (auto) 0.01 K/uL (0.00-0.02); Immature Granulocytes % (auto) 0.2 %; Lymphocytes # (auto) 1.96 K/uL (1.2-3.4); Lymphocytes % (auto) 31.3 %; Mean Corpuscular Hemoglobin 30.5 pg (25-34); Mean Corpuscular Hgb Conc 32.1 g/dL (32-36); Mean Corpuscular Volume 94.8 fL (80-100); Mean Platelet Volume 10.1 fL (7.4-10.4); Monocytes # (auto) 0.31 K/uL (0.11-0.59); Neutrophils # (auto) 3.95 K/uL (1.4-6.5); Platelet Count 226 K/uL (130-400); RDW Coefficient of Variation 13.8 % (11.5-14.5); RDW Standard Deviation 47.5 fL (36.4-46.3); Red Blood Count 3.84 M/uL (4.2-5.4); White Blood Count 6.26 K/uL (4.8-10.8)
[2021-09-15 06:05] LABS: Albumin Globulin Ratio 1.3 (0.9-2); Albumin Level 3.5 gm/dl (3.4-5.0); BUN Creatinine Ratio 12.7 (10-20); Bilirubin,Total 0.6 mg/dl (0.2-1.0); Calcium 8.8 mg/dl (8.5-10.1); Creatinine Clr Calc Pharmacy 84.3 ml/min; Est GFR (African American) 109.9 ml/min; Est GFR (Non-African American) 94.8 ml/min; Globulin 2.6 gm/dl (2.5-4.0); Potassium 3.9 mmol/L (3.5-5.1); Total Protein 6.1 gm/dl (6.0-8.3)
[2021-09-15] MEDS: LEVOTHYROXINE SODIUM 137 MCG TABLET PO SCH (06:30)
[2021-09-15] MEDS: ROSUVASTATIN CALCIUM 20 MG TAB PO SCH (08:57)
[2021-09-15] MEDS: MONTELUKAST SODIUM 10 MG TABLET PO SCH (08:58)
[2021-09-15] MEDS: GABAPENTIN 100 MG CAP PO SCH ×3 (08:58→21:39)
[2021-09-15] MEDS: CHOLECALCIFEROL 1,000 UNITS 25 MCG TAB PO SCH (08:59)
[2021-09-15] MEDS: ASPIRIN 81 MG ECTAB PO SCH ×2 (08:59→21:39)
[2021-09-15] MEDS: LOSARTAN POTASSIUM 25 MG TAB PO SCH (08:59)
[2021-09-15] MEDS ORDERED: NON-FORMULARY MEDICATION (Cholecalciferol (Vitamin D3) [Vitamin D3] 50 mcg (2,000 unit) Ca PO SCH (09:00)
[2021-09-15] MEDS: INSULIN ASPART PER UNIT SQ SCH ×4 (09:31→21:36)
--- NOTE | 2021-09-15 09:37 | Pharmacy Report ---
Pharmacy Glycemic Short Note 2 - Date of Service September 15, 2021 - Glycemic Short BSG Results (Last 24 hours): 09/14/21 09/14/21 09/14/21 10:54 15:15 18:07 Glucose 327 H* POC Glucose 247 H 155 H 09/14/21 09/15/21 09/15/21 21:02 05:33 08:57 Glucose 131 H POC Glucose 184 H 100 H OUTPATIENT ANTIDIABETIC REGIMEN: * Tresiba 15 units SQ qHS * Novolog ~10 units SQ AC (carb ratio 1:10) * HbA1c: 9.2% (05/17/21) -- updated A1c pending with AM labs tomorrow ASSESSMENT: * Ms Patel is a 66yo diabetic female, admitted with abdominal pain, N/V. * She is receiving IV Zosyn for GI coverage empirically. * Pt is known to the pharmacy glycemic mgmt service from past admissions. She is using her own Tresiba, as she reports an allergy to Lantus. * BSGs were elevated on admission (BSG 327), but hyperglycemia resolved with administration of Tresiba and Novolog. * Pt is ordered a diabetic diet. PLAN FOR INPATIENT GLYCEMIC CONTROL: * Hold outpatient oral diabetes medications * Basal insulin * Tresiba 15 units SQ qPM * Bolus insulin * NovoLog per scale ACHS or Q6hrs while NPO * Goal Range: Low 120 mg/dL - High 160 mg/dL * Correction Factor: 30 mg/dL/unit * Nutritional / Prandial insulin per carb ratio of 1 unit per 10 grams CHO consumed PLAN FOR DISCHARGE: * pending updated A1c
[2021-09-15] MEDS: MoRPHine SULFATE 2 MG/ML CARP IV PRN ×2 (11:39→18:03)
--- NOTE | 2021-09-15 16:03 | Hospitalist Progress Note ---
Date of Service September 15, 2021 Assessment & Plan (1) Right upper quadrant abdominal pain: Plan: Worsening RUQ abdominal pain and fever in 66 yo female with recent bout of COVID 19 supposedly diagnosed in 08/28/21 Patient had recent biliary stent placed [address] abdomen shows patent stent LFTs are normal. Empiric zosyn Consult GI (2) COVID-19: Plan: continue isloation On room air, no indication for decadron or remdesevir (3) Uncontrolled type 1 diabetes mellitus with hyperglycemia: Plan: glycemic control is ggod insulin sliding scale (4) Hyperlipidemia: Plan: resume home meds (5) Hypertension: Plan: resume home meds DVT proph: lovenox Admission and Anticipated Discharge Date Admission Date: September 14, 2021 Subjective patient seen and examined, RUQ pain is not getting better Review of Systems Review of Systems: All systems reviewed are negative, apart from the ones contained in the history. Physical Exam Physical Exam: The patient is awake, alert and oriented 3, well developed and well nourished, normocephalic and atraumatic, lying in bed and in no acute dist ress. HEENT--PERRL, EOMI, mucous membranes and oropharynx mildly dry Neck--supple. No JVD. No bruits. Thyroid normal, trachea midline, no adenopathy. Heart--normal S1 and S2. No murmurs, rubs or gallops. Lungs--clear bilaterally, no respiratory distress, no accessory muscle use. Abdomen--normal bowel sounds and soft. Mild epigastric and right sided abdominal pain Extremities--no cyanosis or clubbing. No edema. Dermatologic--normal skin turgor, normal color, no abnormal lymph nodes, no rash. Neurologic--cranial nerves II through XII grossly intact. Rheumatologic--normal range of motion. Psychiatric--normal affect. Results & Data Results & Data ([facility]) Vital Signs (Past 12 Hours) Vital Signs Temp Pulse Resp BP Pulse Ox 09/15/21 11:43 97.7 F 74 18 165/78 H 97 09/15/21 09:06 98.6 F 09/15/21 09:02 81 20 138/71 99 PG Care Time/CCT Total # of Minutes Spent Total Time Spent with Patient: Total time spent is greater than 50% in coordination of care (as documented) at patient's floor/unit and/or counseling patient: Coding Level of Care Code 08480 Subseq Hosp Care Lvl 2 Diagnoses Right upper quadrant abdominal pain R10.11 COVID-19 U07.1 Uncontrolled type 1 diabetes mellitus with hyperglycemia E10.65 Hyperlipidemia E78.2 Hyperlipidemia type: mixed hyperlipidemia Hypertension I10 Hypertension type: essential hypertension Time Spent (min) 35 (1) Hyperlipidemia Hyperlipidemia type: mixed hyperlipidemia Qualified Code(s): E78.2 - Mixed hyperlipidemia (2) Hypertension Hypertension type: essential hypertension Qualified Code(s): I10 - Essential (primary) hypertension
[2021-09-15] MEDS ORDERED: ENOXAPARIN INJ 40 MG/0.4 ML SYR SQ SCH (21:00)
[2021-09-15] MEDS: rOPINIRole HCL 0.25 MG TABLET PO SCH (21:39)
[2021-09-15] MEDS: INSULIN DEGLUDEC 100 UNITS/ML SQ SCH (21:57)
[2021-09-16] MEDS: ACETAMINOPHEN 325 MG TAB PO PRN ×2 (01:26→09:11)
[2021-09-16] MEDS: PIPERACILLIN/TAZOBACTAM 3.375 GM in DEXTROSE 5% 100 ML IV SCH ×2 (02:43→13:20)
[2021-09-16 04:11] LABS: Hematocrit (blood only) 35.9 % (37-47); Hemoglobin 11.8 g/dL (12.0-16.0); Mean Corpuscular Hemoglobin 30.8 pg (25-34); Mean Corpuscular Hgb Conc 32.9 g/dL (32-36); Mean Corpuscular Volume 93.7 fL (80-100); Mean Platelet Volume 10.1 fL (7.4-10.4); Platelet Count 219 K/uL (130-400); RDW Coefficient of Variation 13.6 % (11.5-14.5); RDW Standard Deviation 46.1 fL (36.4-46.3); Red Blood Count 3.83 M/uL (4.2-5.4); White Blood Count 5.71 K/uL (4.8-10.8)
[2021-09-16 04:31] LABS: BUN Creatinine Ratio 16.1 (10-20); Calcium 8.6 mg/dl (8.5-10.1); Creatinine Clr Calc Pharmacy 94.9 ml/min; Est GFR (African American) 114.2 ml/min; Est GFR (Non-African American) 98.5 ml/min; Potassium 3.9 mmol/L (3.5-5.1)
[2021-09-16 07:48] LABS: Estimated Average Glucose 252 mg/dl; Hemoglobin A1C 10.4 % (4.5-5.6)
[2021-09-16] MEDS: INSULIN ASPART PER UNIT SQ SCH ×2 (09:03→13:20)
[2021-09-16] MEDS: LOSARTAN POTASSIUM 25 MG TAB PO SCH (09:04)
[2021-09-16] MEDS: ROSUVASTATIN CALCIUM 20 MG TAB PO SCH (09:04)
[2021-09-16] MEDS: LEVOTHYROXINE SODIUM 137 MCG TABLET PO SCH (09:05)
[2021-09-16] MEDS: CHOLECALCIFEROL 1,000 UNITS 25 MCG TAB PO SCH (09:05)
[2021-09-16] MEDS: GABAPENTIN 100 MG CAP PO SCH (09:06)
[2021-09-16] MEDS: ASPIRIN 81 MG ECTAB PO SCH (09:09)
--- NOTE | 2021-09-16 10:09 | Gastroenterology Progress Note ---
Date of Service September 16, 2021 Assessment & Plan (1) Abdominal pain: (2) Fever: (3) History of biliary stent insertion: Plan: Pt is a 66 y/o female who is s/p cholecystectomy and ERCP w biliary stent placement on 09/12 for choledocholithiasis, admitted with fevers and c/o RUQ abd pain. She tested COVID + on 08/28/2021, still w lingering cough. Her LFTs are normal. CT w signs of patent biliary stent, and ? colitis. She did have diarrhea couple of weeks ago which has now resolved. On exam today, she reports abd pain has resolved, and is tolerating CL diet. She desires to go home - Advance diet as tolerated - If diarrhea recurs, pls obtain stool studies to r/o infections - If continues to do well, no contraindication to DC home today. GI will sign off, pls recall prn Admission and Anticipated Discharge Date Admission Date: September 14, 2021 Supervising Physician Co-Signing Physician Notes I have seen and examined the patient and discussed the management with TODD Guzman. Recent covid + infection as of 08/28/20 still with mild cough, consult for fever in the setting of recent ercp done on 09/12/20. No belly pain reported, lft's are normal. PE noteable for benign abd exam colitis on imaging may be related to recent covid infection however if persistent issues with diarrhea - stool studies + c diff can be sent Agree with further plan of care as below. Subjective Pt reports no longer having abd pain, tolerating CL diet. Passing flatus. LFTs noted to be normal. CT w signs of stent patency Review of Systems Review of Systems: All systems reviewed & are unremarkable except as noted in HPI & below Physical Exam Constitutional: WD/WN, vitals as above well groomed, cooperative and comfo rtable Eyes: PERRL, conjunctivae normal, anicteric sclerae ENMT: external ear and nose normal, oropharynx normal Respiratory: normal respiratory effort, lungs clear to auscultation Cardiovascular: RRR, no murmur, no edema Gastrointestinal (Abdomen): normal bowel sounds, soft, nontender, no hepatosplenomegaly Skin: no rashes, warm and dry no jaundice Psychiatric: A+Ox3, euthymic affect Lymphatic: no lymphedema Results & Data ([facility]) Vital Signs (Past 12 Hours) Vital Signs Temp Pulse Resp BP BP Pulse Ox 09/16/21 08:00 37 C 73 20 119/57 L 97 09/16/21 01:30 61 18 109/62 97 (1) Fever Fever type: unspecified Qualified Code(s): R50.9 - Fever, unspecified (2) Abdominal pain Abdominal location: right upper quadrant Qualified Code(s): R10.11 - Right upper quadrant pain
[2021-09-16] MEDS: MONTELUKAST SODIUM 10 MG TABLET PO SCH (10:22)
--- NOTE | 2021-09-16 10:43 | Discharge Summary ---
Date of Service September 16, 2021 Admission HPI Per Admitting Provider This is a pleasant 66 yo female with past medical histpry described below, PSH: cholescytectomy (1994) presents with a 6 month hsitory of intermittent abdominal pain. Patient reports this has been an ongoing issue, as she has had an ERCP 2 years ago for this problem. Patient has had intermitent RUQ abbdominal pain for years. As her pain during this 6 month episode did not improve, she [facility] Patient had an ERCP and billiary stent placed this past (2 days ago). Patient reports they found multiple stones. Pain however, did not improve. Patient was taking cipro as an outpatient. Principal Diagnosis covid 19 infection Discharge Exam The patient is awake, alert and oriented 3, well developed and well nourished, normocephalic and atraumatic, lying in bed and in no acute distress. HEENT--PERRL, EOMI, mucous membranes and oropharynx mildly dry Neck--supple. No JVD. No bruits. Thyroid normal, trachea midline, no adenopathy. Heart--normal S1 and S2. No murmurs, rubs or gallops. Lungs--clear bilaterally, no respiratory distress, no accessory muscle use. Abdomen--normal bowel sounds and soft. Mild epigastric and right sided abdominal pain Extremities--no cyanosis or clubbing. No edema. Dermatologic--normal skin turgor, normal color, no abnormal lymph nodes, no rash. Neurologic--cranial nerves II through XII grossly intact. Rheumatologic--normal range of motion. Psychiatric--normal affect. Discharge Data Allergies Allergy/AdvReac Type Severity Reaction Status Date / Time Sulfa (Sulfonamide Allergy Intermediate HIVES Verified 09/14/21 12:13 Antibiotics) insulin glargine AdvReac Severe SEE COMMENT Verified 09/14/21 12:13 [From Ciarra Burden U-300 Insulin] Consultations 09/14/21 12:56 Consult Gastroenterology Routine ED Decision to Admit Stat Ordered Studies 09/14/21 11:06 CT abd pelvis IV con only Stat Hospital Course (1) Right upper quadrant abdominal pain: Worsening RUQ abdominal pain and fever in 66 yo female with recent bout of COVID 19 supposedly diagnosed in 08/28/21 Patient had recent biliary stent placed [address] abdomen shows patent stent LFTs are normal. Zosyn discontinued Abd pain has improved (2) COVID-19: patient continues to saturate well on room air, no fever or chills On room air, no indication for decadron or remdesevir (3) Uncontrolled type 1 diabetes mellitus with hyperglycemia: glycemic control is ggod insulin sliding scale Urged to follow up with Netting Inspector for a new insulin pump HbA1c 10.4 (4) Hyperlipidemia: resume home meds (5) Hypertension: resume home meds DVT proph: lovenox Total Time Total Time Spent Total Time Spent (In Minutes): 35 Discharge Plan Discharge Items Patient Disposition: Home - Home Health Services Reason For Visit: FEVER, RUQ ABDOMINAL PAIN Discharge Diagnosis: covid 19 infection Condition on Discharge: Good Activity: Resume your previous activity Non-emergency contact: Primary Care Provider Call non-emergency contact if: you have any medication questions Follow-up/Referrals: Yaz Pantoja CRNP [Primary Care Provider] - Diet: Carb Consistent or DM2 Addtl Attending Provider Instructions: please make appointment to see your Netting Inspector regarding better management of your blood glucose Pending Studies at Discharge: No Stand-Alone Forms: My [employer], Smoking Cessation Medications and DC Order Prescriptions: Continued Tresiba FlexTouch U-100 100 unit/mL (3 mL) insulin pen 15 unit subcut HS 90 Days Qty: 13.5 RF: 3 rosuvastatin [Crestor] 40 mg tablet 40 mg PO DAILY Qty: 90 RF: 3 aspirin [Adult Low Dose Aspirin] 81 mg tablet,delayed release (DR/EC) 81 mg PO BID RF: 0 gabapentin 100 mg Capsule 100 mg PO TID RF: 0 cholecalciferol (vitamin D3) [Vitamin D3] 50 mcg (2,000 unit) Capsule 50 mcg PO QAM RF: 0 levothyroxine 137 mcg tablet 137 mcg PO QAM RF: 0 montelukast 10 mg tablet 10 mg PO QAM RF: 0 albuterol sulfate [Ventolin HFA] 90 mcg/actuation Hfa Aerosol Inhaler 2 puff INHALATION QID PRN (Reason: Shortness Of Breath Or Wheezing) RF: 0 insulin aspart U-100 [Novolog Flexpen U-100 Insulin] 100 unit/mL (3 mL) insulin pen 30 unit subcut DAILY RF: 0 ropinirole 0.5 mg tablet 0.5 mg PO QPM RF: 0 losartan 25 mg tablet 25 mg PO QAM RF: 0 ondansetron 4 mg Tablet,Disintegrating 4 mg PO Q6H PRN (Reason: Nausea) RF: 0 cholecalciferol (vitamin D3) [Vitamin D3] 25 mcg (1,000 unit) Tablet 25 mcg PO QAM RF: 0 Discharge Orders: Discharge Order (Routine); Ordered 09/16/21 Ordered By: Mirian Olvera Admission Data Admit Date/Time: 09/14/21 13:07 Attending Provider: Mirian Olvera Admit Provider: Anibal Manuel Primary Care Provider: Yaz Pantoja Other Providers: Anibal Maunel ; Elijah Wilson Coding Level of Care Code D/C DAY MANAGEMENT >30 MINS Diagnoses Right upper quadrant abdominal pain R10.11 COVID-19 U07.1 Uncontrolled type 1 diabetes mellitus with hyperglycemia E10.65 Hyperlipidemia E78.2 Hyperlipidemia type: mixed hyperlipidemia Hypertension I10 Hypertension type: essential hypertension Time Spent (min) 35
== END 2021-09-16 14:33 | disposition home health service (06) ==
LOC: ED 10:24 → EDINP 10:24 → SUATTDRO 13:07 → EDINP 17:05

== ENCOUNTER 2021-09-27 07:40 | Observation (INO) ==
[2021-09-27] MEDS ORDERED: ONDANSETRON INJ 2 MG/ML 2 ML VIAL IV STA (08:05)
[2021-09-27] MEDS ORDERED: MoRPHine SULFATE 4 MG/ML 1 ML CARP\\VIAL IV STA (08:05)
[2021-09-27] MEDS ORDERED: SODIUM CHLORIDE 0.9% 1000ML 1,000 ML IV ONE (08:05)
--- NOTE | 2021-09-27 08:50 | Emergency Department Note ---
History of Present Illness General Chief Complaint: Abdominal Pain Stated Complaint: NAUSEA, SEVER PAIN Time Seen by Provider: 09/27/21 08:05 History of Present Illness Provider Complaint: abdominal pain Onset (ago): 2 day(s) Pain Consistency: constant Location: RUQ Severity: moderate Maximum Pain Intensity: 8 Current Pain Intensity: 8 Quality: + stabbing, + aching, + sharp and + dull Relieved By: + nothing Exacerbated By: + nothing Context: + history of similar episodes (Recently had biliary stents placed by Dr. Peterson); no foreign travel, no possible food poisoning, no sick contacts, no recent antibiotic use, no recent surgery/procedure or no recent injury Associated Symptoms: + nausea, + vomiting and + diarrhea; no fever, no chills, no constipation, no dysuria, no hematemesis, no hematochezia, no melena, no hematuria, no anorexia, no syncope, no headache, no neck pain, no back pain, no chest pain, no weakness, no breathing difficulty and no numbness Home Medications Medication Instructions Recorded Confirmed Type albuterol sulfate 90 mcg/actuation 2 puff INHALATION QID PRN 06/27/19 09/14/21 History aerosol inhaler (Ventolin HFA) montelukast 10 mg tablet 10 mg PO QAM 06/27/19 09/14/21 History cholecalciferol (vitamin D3) 50 50 mcg PO QAM 05/21/20 09/14/21 History mcg (2,000 unit) capsule (Vitamin D3) gabapentin 100 mg capsule 100 mg PO TID 05/21/20 09/14/21 History levothyroxine 137 mcg tablet 137 mcg PO QAM 08/27/20 09/14/21 History ropinirole 0.5 mg tablet 0.5 mg PO QPM 10/30/20 09/14/21 History aspirin 81 mg tablet,delayed 81 mg PO BID tab 02/18/21 09/14/21 History release (Adult Low Dose Aspirin) insulin aspart U-100 100 unit/mL 30 unit SUBCUT DAILY ml 02/18/21 09/14/21 History (3 mL) subcutaneous pen (Novolog Flexpen U-100 Insulin aspart) rosuvastatin 40 mg tablet (Crestor) 40 mg PO DAILY #90 tab 05/06/21 09/14/21 Rx insulin degludec 100 unit/mL (3 15 unit SUBCUT HS 90 Days #13.5 ml 08/02/21 09/14/21 Rx mL) subcutaneous pen (Tresiba FlexTouch U-100 insulin) cholecalciferol (vitamin D3) 25 25 mcg PO QAM 09/14/21 09/14/21 History mcg (1,000 unit) tablet (Vitamin D3) losartan 25 mg tablet 25 mg PO QAM 09/14/21 09/14/21 History ondansetron 4 mg disintegrating 4 mg PO Q6H PRN 09/14/21 09/14/21 History tablet Allergies Allergy/AdvReac Type Severity Reaction Status Date / Time Sulfa (Sulfonamide Allergy Intermediate HIVES Verified 09/14/21 12:13 Antibiotics) insulin glargine AdvReac Severe SEE COMMENT Verified 09/14/21 12:13 [From Touevin [employer] U-300 Insulin] Past Med/Surg History Medical History Bilateral hip joint arthritis CAD (coronary artery disease) "Moderate diffuse coronary atherosclerosis with type I left anterior descending artery" per 2019 heart cath. Diabetic retinopathy associated with type 1 diabetes mellitus History of biliary stent insertion Hyperlipidemia Hypertension Hypothyroidism RLS (restless legs syndrome) Tobacco use disorder Type 1 diabetes mellitus, uncontrolled A1C > 10% in 11/2020 Vitamin D deficiency Surgical History History of cholecystectomy History of total left knee replacement Hx of cardiac cath Performed for chest pain syndrome. Diffuse moderate CAD, no stents placed, aggressive risk factor modification recommended. Follows with NAVEEN Gaines at [facility]. S/P ERCP 06/28/19 -- MAC #3, ETT 7.0. Family History Other No significant family history Social History Smoking Status: Current every day smoker Cigarettes Per Day: 5 cig a day; Second Hand Exposure: Yes; Hx Alcohol Use: No Hx Substance Use: No Preferred Language: Kenyan Communication Ability: Effective Visual Impairment: No Limitations Hearing Ability: Normal Bag Builder Required: No Beliefs That Will Affect Care: None Current Living Situation: Family Current Living Situation Comment: with son Feels Safe at Home: Yes Assistive Devices: None Review of Systems A total of 10 systems reviewed and were otherwise negative Physical Exam Vital Signs: Vital Signs - 24 hr 09/27/21 07:55 09/27/21 08:30 09/27/21 08:41 Temperature 36.8 C Temperature Source Temporal Artery Sc an Pulse Rate 74 74 69 Pulse Rate from Sp O2 Sensor 69 Pulse Rhythm Regular Regular Pulse Strength Normal Respiratory Rate 20 20 32 H Respiratory Effort / Characteristics Non-Labored Sponta neous Respiratory Depth Normal Respiratory Patter n Regular Blood Pressure 190/82 H 178/91 H Blood Pressure Lola n 118 120 Blood Pressure Pos ition Sitting Pulse Oximetry 97 97 96 Oxygen Delivery Me thod Room Air Room Air Sepsis Recent Feve r Within 48 Hours No Sepsis New/Unexpla ined Change in Men fanny Status N/A Sepsis Action Take n by Nursing No Action Required 09/27/21 09:00 09/27/21 09:30 09/27/21 10:00 Temperature Temperature Source Pulse Rate 72 70 71 Pulse Rate from Sp O2 Sensor 71 70 70 Pulse Rhythm Pulse Strength Respiratory Rate 24 18 17 Respiratory Effort / Characteristics Respiratory Depth Respiratory Patter n Blood Pressure 159/82 H 159/75 H 155/87 H Blood Pressure Lola n 107 103 109 Blood Pressure Pos ition Pulse Oximetry 96 96 96 Oxygen Delivery Me thod Sepsis Recent Feve r Within 48 Hours Sepsis New/Unexpla ined Change in Men fanny Status Sepsis Action Take n by Nursing Physical Exam: Physical Exam GENERAL: She is oriented to person, place, and time. She appears well-developed and well-nourished. She does not appear distressed. HENT: Exam performed. -Head: Normocephalic and atraumatic. -Right Ear: External ear normal. No mastoid tenderness. -Left Ear: External ear normal. No mastoid tenderness. -Mouth/Throat: The oropharynx is clear and moist. No trismus in the jaw. No dental abscesses or uvula swelling. No oropharyngeal exudate or tonsillar abscesses. EYES: Conjunctivae and EOM are normal. Pupils are equal, round, and reactive to light. Right eye exhibits no discharge. Left eye exhibits no discharge. No scleral icterus. NECK: Normal range of motion. Neck supple. No JVD present. No spinous process tenderness present. No carotid bruit present. No rigidity. No tracheal deviation and normal range of motion present. No Brudzinski's sign and no Kernig's sign noted. CV: Normal rate, regular rhythm, normal heart sounds and intact distal pulses. There is no peripheral edema. Palpable radial pulses bue. PULM/CHEST: Effort normal and breath sounds normal. No respiratory distress. No stridor. She has no wheezes. She has no rales. -Chest Wall: She exhibits no tenderness. ABD: The abdomen is soft. Bowel sounds are normal. She has no distension. No mass is present. There is tenderness to palpation of the right upper quadrant There is no rebound, guarding present MUSC/SKEL: Normal range of motion. There is no peripheral edema, tenderness or deformity. LYMPH: No cervical adenopathy. NEURO: She is alert and oriented to person, place, and time. She has normal strength. No cranial nerve deficit or sensory deficit. Coordination and gait normal. GCS eye subscore is 4. GCS verbal subscore is 5. GCS motor subscore is 6. Cerebellar tests wnl. SKIN: Skin is warm and dry. She is not diaphoretic. PSYCH: She has a normal mood and affect. Behavior is normal. Judgment and thought content normal. Course Course 08: The patient was evaluated in room A4. A complete history and physical exam was performed Cardiac monitoring: An order was placed for continuous cardiac monitoring. The monitor shows a rate of 70 with sinus rhythm EMR reviewed. Patient has a history of type 1 diabetes and has a history of DKA. Patient was admitted to the hospital from September 14 to September 16, 2021 for abdominal pain. At that time she did CT of the abdomen which showed her abdominal biliary stent is in place. Patient was evaluated by GI and the patient was thought to have colitis. Patient was given pain medication and began tolerated clear liquid diet. 1025: Vital signs stable. Labs and imaging are within normal limits. Patient states she feels better after Zofran and morphine. I explained to the patient that her labs and imaging are within normal limits that that we could be able to send her home. Patient states she does not feel comfortable with this and states she is not able to function at home due to the pain and nausea. She is requesting to be evaluated by the GI team. [facility] GI will be paged. 1042: Spoke with the patient's GI doctor Dr. Lynne Barbosa. He agrees that the patient's labs and imaging are reassuring. He states his midlevel be down to evaluate the patient. 1112: Vital signs stable. Patient was evaluated by NATALIIA damon and after discussing with her attending they decided to conduct an ERCP on the patient later today. They are asking that the patient be admitted to the [facility]. [facility] hospitalist team will be contacted. Administered Medications Discontinued Medications Sodium Chloride (Nss 1000ml) 1,000 mls @ 999 mls/hr IV .Q1H1M ONE Stop: 09/27/21 09:05 Last Infusion: 09/27/21 09:41 Dose: 0 mls/hr Documented by: [id number] Admin: 09/27/21 08:33 Dose: 999 mls/hr Documented by: [id number] Ioversol (Optiray 320 100ml) 94 ml IV ONCE ONE Stop: 09/27/21 09:12 Last Admin: 09/27/21 09:12 Dose: 94 ml Documented by: [id number] Morphine Sulfate (Morphine Sulfate 4 Mg/Ml 1 Ml Carp\\Vial) 4 mg IV NOW STA Stop: 09/27/21 08:06 Last Admin: 09/27/21 08:33 Dose: 4 mg Documented by: [id number] Ondansetron HCl (Ondansetron Inj 2 Mg/Ml 2 Ml Vial) 4 mg IV NOW STA Stop: 09/27/21 08:06 Last Admin: 09/27/21 08:34 Dose: 4 mg Documented by: [id number] Medical Decision Making Laboratory Data Result diagrams: 09/27/21 08:25 09/27/21 08:25 Lab Results 09/27/21 09/27/21 09/27/21 Range/Units 08:25 08:25 08:25 WBC 11.39 H (4.8-10.8) K/uL RBC 3.64 L (4.2-5.4) M/uL Hgb 10.9 L (12.0-16.0) g/dL Hct 34.4 L (37-47) % MCV 94.5 (80-100) fL MCH 29.9 (25-34) pg MCHC 31.7 L (32-36) g/dL RDW Std Deviation 46.1 (36.4-46.3) fL RDW Coeff of Kandy 13.3 (11.5-14.5) % Plt Count 273 (130-400) K/uL MPV 10.3 (7.4-10.4) fL Immature Gran % (Auto) 0.1 % Neut % (Auto) 81.5 % Lymph % (Auto) 14.3 % [place] % (Auto) 3.8 % Eos % (Auto) 0.0 % Baso % (Auto) 0.3 % Neut # (Auto) 9.29 H (1.4-6.5) K/uL Lymph # (Auto) 1.63 (1.2-3.4) K/uL [place] # (Auto) 0.43 (0.11-0.59) K/uL Eos # (Auto) 0.00 (0-0.5) K/uL Baso # (Auto) 0.03 (0-0.2) K/uL Immature Gran # (Auto) 0.01 (0.00-0.02) K/uL Sodium 136 (136-145) mmol/L Potassium 4.0 (3.5-5.1) mmol/L Chloride 107 (98-107) mmol/L Carbon Dioxide 24 (21-32) mmol/L Anion Gap 5 (3-11) BUN 13 (6-23) mg/dl Creatinine 0.54 L (0.6-1.2) mg/dl Est Cr Clr Drug Dosing Not Reportable Est GFR ( Amer) 115.6 ml/min Est GFR (Non-Af Amer) 99.7 ml/min BUN/Creatinine Ratio 24.1 H (10-20) Glucose 281 H (70-99(Fasting)) mg/dl Calcium 8.6 (8.5-10.1) mg/dl Total Bilirubin 0.3 (0.2-1.0) mg/dl Direct Bilirubin 0.1 (0-0.2) mg/dl AST 23 (13-39) U/L ALT 32 (7-52) U/L Alkaline Phosphatase 48 (34-104) U/L Total Protein 5.9 L (6.0-8.3) gm/dl Albumin 3.6 (3.4-5.0) gm/dl Lipase 13 (11-82) U/L SARS-CoV-2, RNA, NAAT (NEGATIVE) 09/27/21 Range/Units Unknown WBC (4.8-10.8) K/uL RBC (4.2-5.4) M/uL Hgb (12.0-16.0) g/dL Hct (37-47) % MCV (80-100) fL MCH (25-34) pg MCHC (32-36) g/dL RDW Std Deviation (36.4-46.3) fL RDW Coeff of Kandy (11.5-14.5) % Plt Count (130-400) K/uL MPV (7.4-10.4) fL Immature Gran % (Auto) % Neut % (Auto) % Lymph % (Auto) % [place] % (Auto) % Eos % (Auto) % Baso % (Auto) % Neut # (Auto) (1.4-6.5) K/uL Lymph # (Auto) (1.2-3.4) K/uL [place] # (Auto) (0.11-0.59) K/uL Eos # (Auto) (0-0.5) K/uL Baso # (Auto) (0-0.2) K/uL Immature Gran # (Auto) (0.00-0.02) K/uL Sodium (136-145) mmol/L Potassium (3.5-5.1) mmol/L Chloride (98-107) mmol/L Carbon Dioxide (21-32) mmol/L Anion Gap (3-11) BUN (6-23) mg/dl Creatinine (0.6-1.2) mg/dl Est Cr Clr Drug Dosing Est GFR ( Amer) ml/min Est GFR (Non-Af Amer) ml/min BUN/Creatinine Ratio (10-20) Glucose (70-99(Fasting)) mg/dl Calcium (8.5-10.1) mg/dl Total Bilirubin (0.2-1.0) mg/dl Direct Bilirubin (0-0.2) mg/dl AST (13-39) U/L ALT (7-52) U/L Alkaline Phosphatase (34-104) U/L Total Protein (6.0-8.3) gm/dl Albumin (3.4-5.0) gm/dl Lipase (11-82) U/L SARS-CoV-2, RNA, NAAT POSITIVE A* (NEGATIVE) Imaging Data Radiologist's Impression: Abdomen/Pelvis CT 09/27/21 08:[address] WITH IV CONTRAST CT DOSE: 279.69 mGy.cm HISTORY: Right upper quadrant pain hx biliary stent placed TECHNIQUE: Multiaxial CT images of the abdomen and pelvis were performed following the use of intravenous contrast. A dose lowering technique was utilized adhering to the principles of ALARA. COMPARISON STUDY: Abdomen and pelvis CT 09/14/2021. FINDINGS: The lung bases are essentially clear. No pneumoperitoneum. No pneumatosis. There is severe osteoarthritis within the left hip. There is a right total hip arthroplasty. There there are small diverticula at the second and third portion of the duodenum. Stable 5 mm hypodense lesion within the right hepatic lobe inferiorly. This favors a small cyst. There are few punctate calcified granulomas within the liver and spleen. The main portal vein is patent. A common bile duct stent appears in good position. There is associated pneumobilia, unchanged. Stable mild bile duct dilatation. Prior cholecystectomy. The adrenal glands, pancreas, and kidneys are unremarkable. No hydronephrosis. No retroperitoneal lymphadenopathy. Calcified plaque within the mildly ectatic abdominal aorta. Minimal pelvic free fluid. The deep pelvic structures are suboptimally assessed due to the metallic artifact from the right hip prosthesis. However, the bladder appears unremarkable. Colonic diverticulosis. No evidence for acute diverticulitis. The colon is not well-distended. Near- complete resolution of the previously identified colonic wall thickening. No evidence for bowel obstruction. IMPRESSION: 1. Near-complete resolution of the previously identified colonic wall thickening. No new areas of bowel wall thickening identified. 2. No evidence for bowel obstruction. 3. A common bile duct stent is in good position with associated pneumobilia. This remains unchanged. Stable mild bile duct dilatation. 4. Colonic diverticulosis. No evidence for acute diverticulitis. ACT 112: Negative or not required by law. Electronically signed by: Ashish Vigil M.D. 09/27/2021 9:35 AM MDM Narrative 0805: The patient was evaluated in room A4. A complete history and physical exam was performed Cardiac monitoring: An order was placed for continuous cardiac monitoring. The monitor shows a rate of 70 with sinus rhythm EMR reviewed. Patient has a history of type 1 diabetes and has a history of DKA. Patient was admitted to the hospital from September 14 to September 16, 2021 for ab dominal pain. At that time she did CT of the abdomen which showed her abdominal biliary stent is in place. Patient was evaluated by GI and the patient was thought to have colitis. Patient was given pain medication and began tolerated clear liquid diet. 1025: Vital signs stable. Labs and imaging are within normal limits. Patient states she feels better after Zofran and morphine. I explained to the patient that her labs and imaging are within normal limits that that we could be able to send her home. Patient states she does not feel comfortable with this and states she is not able to function at home due to the pain and nausea. She is requesting to be evaluated by the GI team. [facility] GI will be paged. 1042: Spoke with the patient's GI doctor Dr. Lynne Barbosa. He agrees that the patient's labs and imaging are reassuring. He states his midlevel be down to evaluate the patient. 1112: Vital signs stable. Patient was evaluated by NATALIIA damon and after discussing with her attending they decided to conduct an ERCP on the patient later today. They are asking that the patient be admitted to the medicine service. [facility] hospitalist team will be contacted. Impression & Plan Right upper quadrant abdominal pain Discharge Plan Visit Data Chief Complaint: Abdominal Pain Stated Complaint: NAUSEA, SEVER PAIN ED Provider: Colin Jensen Discharge Problem: Right upper quadrant abdominal pain Patient Disposition: Being Evaluated by Hospitalist Forms Stand Alone Forms: My [facility] [employer] Prescriptions Prescriptions: No Action Tresiba FlexTouch U-100 100 unit/mL (3 mL) insulin pen 15 unit subcut HS 90 Days Qty: 13.5 RF: 3 rosuvastatin [Crestor] 40 mg tablet 40 mg PO DAILY Qty: 90 RF: 3 aspirin [Adult Low Dose Aspirin] 81 mg tablet,delayed release (DR/EC) 81 mg PO BID RF: 0 gabapentin 100 mg Capsule 100 mg PO TID RF: 0 cholecalciferol (vitamin D3) [Vitamin D3] 50 mcg (2,000 unit) Capsule 50 mcg PO QAM RF: 0 levothyroxine 137 mcg tablet 137 mcg PO QAM RF: 0 montelukast 10 mg tablet 10 mg PO QAM RF: 0 albuterol sulfate [Ventolin HFA] 90 mcg/actuation Hfa Aerosol Inhaler 2 puff INHALATION QID PRN (Reason: Shortness Of Breath Or Wheezing) RF: 0 insulin aspart U-100 [Novolog Flexpen U-100 Insulin] 100 unit/mL (3 mL) insulin pen 30 unit subcut DAILY RF: 0 ropinirole 0.5 mg tablet 0.5 mg PO QPM RF: 0 losartan 25 mg tablet 25 mg PO QAM RF: 0 ondansetron 4 mg Tablet,Disintegrating 4 mg PO Q6H PRN (Reason: Nausea) RF: 0 cholecalciferol (vitamin D3) [Vitamin D3] 25 mcg (1,000 unit) Tablet 25 mcg PO QAM RF: 0 Referrals Referrals: Yaz Pantoja CRNP [Primary Care Provider] -
[2021-09-27 08:51] LABS: Basophils # (auto) 0.03 K/uL (0-0.2); Basophils % (auto) 0.3 %; Hematocrit (blood only) 34.4 % (37-47); Hemoglobin 10.9 g/dL (12.0-16.0); Immature Granulocytes # (auto) 0.01 K/uL (0.00-0.02); Immature Granulocytes % (auto) 0.1 %; Lymphocytes # (auto) 1.63 K/uL (1.2-3.4); Lymphocytes % (auto) 14.3 %; Mean Corpuscular Hemoglobin 29.9 pg (25-34); Mean Corpuscular Hgb Conc 31.7 g/dL (32-36); Mean Corpuscular Volume 94.5 fL (80-100); Mean Platelet Volume 10.3 fL (7.4-10.4); Monocytes # (auto) 0.43 K/uL (0.11-0.59); Monocytes % (auto) 3.8 %; Neutrophils # (auto) 9.29 K/uL (1.4-6.5); Neutrophils % (auto) 81.5 %; Platelet Count 273 K/uL (130-400); RDW Coefficient of Variation 13.3 % (11.5-14.5); RDW Standard Deviation 46.1 fL (36.4-46.3); Red Blood Count 3.64 M/uL (4.2-5.4); White Blood Count 11.39 K/uL (4.8-10.8)
[2021-09-27 09:00] LABS: Alanine Aminotransferase 32 U/L (7-52); Albumin Level 3.6 gm/dl (3.4-5.0); Alkaline Phosphatase 48 U/L (34-104); Anion Gap 5 (3-11); Aspartate Aminotransferase 23 U/L (13-39); BUN Creatinine Ratio 24.1 (10-20); Bilirubin Direct 0.1 mg/dl (0-0.2); Bilirubin,Total 0.3 mg/dl (0.2-1.0); Blood Urea Nitrogen 13 mg/dl (6-23); Calcium 8.6 mg/dl (8.5-10.1); Carbon Dioxide 24 mmol/L (21-32); Chloride 107 mmol/L (98-107); Est GFR (African American) 115.6 ml/min; Est GFR (Non-African American) 99.7 ml/min; Glucose 281 mg/dl (70-99(Fasting)); Sodium 136 mmol/L (136-145); Total Protein 5.9 gm/dl (6.0-8.3)
[2021-09-27] MEDS ORDERED: OPTIRAY 320 100ml IV ONE (09:11)
--- NOTE | 2021-09-27 09:37 | CT Scan Report ---
ABDOMEN AND PELVIS CT WITH IV CONTRAST CT DOSE: 279.69 mGy.cm HISTORY: Right upper quadrant pain hx biliary stent placed TECHNIQUE: Multiaxial CT images of the abdomen and pelvis were performed following the use of intrave nous contrast. A dose lowering technique was utilized adhering to the principles of ALARA. COMPARISON STUDY: Abdomen and pelvis CT 09/14/2021. FINDINGS: The lung bases are essentially clear. No pneumoperitoneum. No pneumatosis. There is severe osteoarthritis within the left hip. There is a right total hip arthroplasty. There there are small di verticula at the second and third portion of the duodenum. Stable 5 mm hypodense lesion within the ri ght hepatic lobe inferiorly. This favors a small cyst. There are few punctate calcified granulomas wi thin the liver and spleen. The main portal vein is patent. A common bile duct stent appears in good p osition. There is associated pneumobilia, unchanged. Stable mild bile duct dilatation. Prior cholecys tectomy. The adrenal glands, pancreas, and kidneys are unremarkable. No hydronephrosis. No retroperit poe lymphadenopathy. Calcified plaque within the mildly ectatic abdominal aorta. Minimal pelvic angeline e fluid. The deep pelvic structures are suboptimally assessed due to the metallic artifact from the r ight hip prosthesis. However, the bladder appears unremarkable. Colonic diverticulosis. No evidence f or acute diverticulitis. The colon is not well-distended. Near-complete resolution of the previously identified colonic wall thickening. No evidence for bowel obstruction. IMPRESSION: 1. Near-complete resolution of the previously identified colonic wall thickening. No new areas of bow el wall thickening identified. 2. No evidence for bowel obstruction. 3. A common bile duct stent is in good position with associated pneumobilia. This remains unchanged. Stable mild bile duct dilatation. 4. Colonic diverticulosis. No evidence for acute diverticulitis. ACT 112: Negative or not required by law. Electronically signed by: Ashish Vigil M.D. 09/27/2021 9:35 AM
--- NOTE | 2021-09-27 11:59 | History & Physical Report ---
Date of Service September 27, 2021 Assessment & Plan (1) Abdominal pain: Plan: Appears to be biliary colic in nature - suspect related to biliary stent ?mild sludge not causing significant enough blockage to elevate LFTs Consult gastroenterology - planning on ERCP today. (2) Uncontrolled type 1 diabetes mellitus with hyperglycemia: Plan: HbA1c 10.4 in August. No need to repeat this. On previous admission uses heroin Tresiba due to allergy to Lantus. Usual inpatient dosing of 15 units Tresiba at night. Novolog: * NovoLog per scale ACHS or Q6hrs while NPO * Goal Range: Low 120 mg/dL - High 160 mg/dL * Correction Factor: 30 mg/dL/unit * Nutritional / Prandial insulin per carb ratio of 1 unit per 10 grams CHO consumed * Glucose 281 on admission therefore give 4 units SQ now. Due to type 1 diabetes will consult pharmacy for glycemic control. (3) SARS-CoV-2 positive: Plan: Not suspected to have an active infection at this time or to be infective to others given initial test on August 28 and first positive test in our system on September 14. Therefore has been at least 10 days since her infection. No need for Covid isolation however patient should have a single room -unless otherwise informed by infection control. (4) CAD (coronary artery disease): Plan: Moderately diffuse disease. Continue aspirin, losartan, rosuvastatin. (5) Hypothyroidism: Plan: TSH 0.338 in April 2021 Continue levothyroxine 137 mcg p.o. daily (6) Hypertension: Plan: Continue losartan (7) RLS (restless legs syndrome): Plan: Continue ropinirole 0.5 mg p.o. every afternoon Plan: VTE prophylaxis -Lovenox subcu 40 mg daily Diet - n.p.o. Disposition - admit to [facility] telemetry Admission and Anticipated Discharge Date Admission Date: September 27, 2021 History of Present Illness Chief Complaint: Abdominal pain Primary Care Provider: Yaz Pantoja Jes Patel is a 66-year-old female we have recent COVID-19 infection who presents to the ER with abdominal pain, nausea, vomiting (not relived with ondansetron) and diarrhea (yesterday, watery, attributed to a milkshake). This is on a background of biliary colic abdominal pain starting 6 months ago. She had a cholecystectomy in 1995 with her first ERCP 2 years after this. 2 years ago had to have repeat ERCP - no stent placed at that time but had choledocholithiasis. For her current pain she underwent outpatient ERCP on September 12 with stent insertion at that time. She was hospitalized from the to 16 September after this due to recurrence of right upper quadrant pain. She was treated conservatively during that admission with intravenous antibiotics and did not require further ERCP. Her pain never fully resolved however from the ERCP time. Her current pain progressed much worse 2 days ago, right upper quadrant with severity 8 out of 10 on arrival to the ER. Improved on pain medication but no other exacerbating or relieving factors. No melena or bright red blood in stool. No change with bowel movements or when she eats. No current fever or chills. In the ER CT showed good biliary stent position and LFT/lipase within normal limits. CT was concerning only for possible colitis however this does not fit with her description of her pain. Last routine screening colonoscopy 2 years ago she reports was normal. Gastroenterology were contacted and recommended admission under medicine for ERCP today. Allergies Allergy/AdvReac Type Severity Reaction Status Date / Time Sulfa (Sulfonamide Allergy Intermediate HIVES Verified 09/27/21 12:37 Antibiotics) insulin glargine AdvReac Severe SEE COMMENT Verified 09/27/21 12:37 [From [facility] U-300 Insulin] Home Medications Medication Instructions Recorded Confirmed Type albuterol sulfate 90 mcg/actuation 2 puff INHALATION QID PRN 06/27/19 09/27/21 History aerosol inhaler (Ventolin HFA) montelukast 10 mg tablet 10 mg PO QAM 06/27/19 09/27/21 History cholecalciferol (vitamin D3) 50 50 mcg PO QAM 05/21/20 09/27/21 History mcg (2,000 unit) capsule (Vitamin D3) gabapentin 100 mg capsule 100 mg PO TID 05/21/20 09/27/21 History levothyroxine 137 mcg tablet 137 mcg PO QAM 08/27/20 09/27/21 History aspirin 81 mg tablet,delayed 81 mg PO BID tab 02/18/21 09/27/21 History release (Adult Low Dose Aspirin) insulin aspart U-100 100 unit/mL 10 unit SUBCUT TIDM ml 02/18/21 09/27/21 History (3 mL) subcutaneous pen (Novolog Flexpen U-100 Insulin aspart) insulin degludec 100 unit/mL (3 15 unit SUBCUT HS 90 Days #13.5 ml 08/02/21 09/27/21 Rx mL) subcutaneous pen (Tresiba FlexTouch U-100 insulin) losartan 25 mg tablet 25 mg PO QAM 09/14/21 09/27/21 History ondansetron 4 mg disintegrating 4 mg PO Q6H PRN 09/14/21 09/27/21 History tablet alendronate 70 mg tablet 70 mg PO WK 09/27/21 09/27/21 History dicyclomine 10 mg capsule 10 mg PO BID PRN 09/27/21 09/27/21 History pantoprazole 40 mg tablet,delayed 40 mg PO DAILYBB 09/27/21 09/27/21 History release rosuvastatin 40 mg tablet (Crestor) 40 mg PO QAM 09/27/21 09/27/21 History Past Med/Surg History Medical History Anemia Bilateral hip joint arthritis CAD (coronary artery disease) "Moderate diffuse coronary atherosclerosis with type I left anterior descending artery" per 2019 heart cath. Diabetic retinopathy associated with type 1 diabetes mellitus History of biliary stent insertion Hyperlipidemia Hypertension Hypothyroidism RLS (restless legs syndrome) Tobacco use disorder Type 1 diabetes mellitus, uncontrolled A1C > 10% in 11/2020 Vitamin D deficiency Surgical History History of cholecystectomy History of total left knee replacement Hx of cardiac cath Performed for chest pain syndrome. Diffuse moderate CAD, no stents placed, aggressive risk factor modification recommended. Follows with NAVEEN Gaines at [facility]. S/P ERCP 06/28/19 -- MAC #3, ETT 7.0. Family History Other No significant family history Social History Smoking Status: Current every day smoker Cigarettes Per Day: 5 cig a day; Second Hand Exposure: Yes; Hx Alcohol Use: No Hx Substance Use: No Preferred Language: Bulgarian Communication Ability: Effective Visual Impairment: No Limitations Hearing Ability: Normal Rn Immunology Required: No Beliefs That Will Affect Care: None Current Living Situation: Family Current Living Situation Comment: with son Other Information That Helps Us Care for You: No Feels Safe at Home: Yes Safety Concerns: Feels Safe At This Time Assistive Devices: None Review of Systems Review of Systems: All systems reviewed & are unremarkable except as noted in HPI & below Physical Exam Constitutional: WD/WN, vitals as above Eyes: + anicteric sclerae; normal pupil size Neck: trachea midline, no thyromegaly Respiratory: normal respiratory effort, lungs clear to auscultation Cardiovascular: RRR, no murmur, no edema Gastrointestinal (Abdomen): Percussion/Palpation: + abdomen tender (RUQ) and abdomen soft; no guarding and abdomen not rigid Musculoskeletal: no cyanosis or clubbing, extremities motor strength 5/5 Skin: no rashes, warm and dry Neurologic: moves all extremities and awake; not confused Psychiatric: A+Ox3, euthymic affect Genitourinary: no CVA tenderness Results & Data Results & Data ([facility]) Vital Signs (Past 12 Hours) Vital Signs Temp Pulse Resp BP Pulse Ox 09/27/21 11:00 71 31 H 98 09/27/21 10:30 74 31 H 99 09/27/21 10:00 71 17 155/87 H 96 09/27/21 09:30 70 18 159/75 H 96 09/27/21 09:00 72 24 159/82 H 96 09/27/21 08:41 69 32 H 178/91 H 96 09/27/21 08:30 74 20 97 09/27/21 07:55 36.8 C 74 20 190/82 H 97 Diagnostic Findings ABDOMEN AND PELVIS CT WITH IV CONTRAST CT DOSE: 279.69 mGy.cm HISTORY: Right upper quadrant pain hx biliary stent placed TECHNIQUE: Multiaxial CT images of the abdomen and pelvis were performed following the use of intravenous contrast. A dose lowering technique was utilized adhering to the principles of ALARA. COMPARISON STUDY: Abdomen and pelvis CT 09/14/2021. FINDINGS: The lung bases are essentially clear. No pneumoperitoneum. No pneumatosis. There is severe osteoarthritis within the left hip. There is a right total hip arthroplasty. There there are small diverticula at the second and third portion of the duodenum. Stable 5 mm hypodense lesion within the right hepatic lobe inferiorly. This favors a small cyst. There are few punctate calcified granulomas within the liver and spleen. The main portal vein is patent. A common bile duct stent appears in good position. There is associated pneumobilia, unchanged. Stable mild bile duct dilatation. Prior cholecystectomy. The adrenal glands, pancreas, and kidneys are unremarkable. No hydronephrosis. No retroperitoneal lymphadenopathy. Calcified plaque within the mildly ectatic abdominal aorta. Minimal pelvic free fluid. The deep pelvic structures are suboptimally assessed due to the metallic artifact from the right hip prosthesis. However, the bladder appears unremarkable. Colonic diverticulosis. No evidence for acute diverticulitis. The colon is not well-distended. Near- complete resolution of the previously identified colonic wall thickening. No evidence for bowel obstruction. IMPRESSION: 1. Near-complete resolution of the previously identified colonic wall thickening. No new areas of bowel wall thickening identified. 2. No evidence for bowel obstruction. 3. A common bile duct stent is in good position with associated pneumobilia. This remains unchanged. Stable mild bile duct dilatation. 4. Colonic diverticulosis. No evidence for acute diverticulitis. Medications Administered ER Medications Given: NSS 1L bolus Morphine 4mg IV Ondansetron 4mg IV ECG Indication: abdominal pain Rate (beats per minute): 67 Comparison ECG Date: from (May 21, 2020) Change: the following changes noted (non-specific T wave abnormality present in inferior leads) Code Status & VTE Plan Code Status Full VTE Prophylaxis Plan VTE Prophylaxis will be ordered: No PG Care Time/CCT Total # of Minutes Spent Total Time Spent with Patient: Total time spent is greater than 50% in coordination of care (as documented) at patient's floor/unit and/or counseling patient: Coding Level of Care Code INT OBSERVATION CARE 50M LVL 2 Diagnoses Uncontrolled type 1 diabetes mellitus with hyperglycemia E10.65 Abdominal pain R10.11 Abdominal location: right upper quadrant SARS-CoV-2 positive U07.1 CAD (coronary artery disease) I25.10 Hypothyroidism E03.9 Hypertension I10 Hypertension type: essential hypertension RLS (restless legs syndrome) G25.81 (1) Abdominal pain Abdominal location: right upper quadrant Qualified Code(s): R10.11 - Right upper quadrant pain (2) Hypertension Hypertension type: essential hypertension Qualified Code(s): I10 - Essential (primary) hypertension
[2021-09-27] MEDS ORDERED: MIDAZOLAM HCL 1 MG/ML 2ML VIAL ONE (12:16)
[2021-09-27] MEDS ORDERED: PROPOFOL IV EMULSION 10 MG/ML 20 ML VIAL IV ONE (12:16)
[2021-09-27] MEDS ORDERED: LIDOCAINE 2% 2 ML VIAL/AMP(20MG/ML) INFIL ONE (12:16)
[2021-09-27] MEDS ORDERED: fentaNYL citrate 100 MCG/2 ML VIAL ONE (12:16)
--- NOTE | 2021-09-27 12:18 | Gastrointestinal Consultation ---
Date of Consultation September 27, 2021 Assessment & Plan (1) SARS-CoV-2 positive: Pt was dx'ed with COVID in the first week of August and all symptoms have resolved. Continues to test (+). (2) Abdominal pain: Cause of pain is unclear. Stents cause pain in some person - and may be the cause of her pain. Also, she may have choledocholithiasis (as prior stones did not show on imaging but were very large on ERCP). Her pain may functional, from IBS or SOD. (3) History of biliary stent insertion: CBD stent placed during ERCP on 09/12/21. ERCP today. If stones present, then will sweep the bile duct. Plan to remove the CBD stent. Please keep NPO. Further recommendations to follow ERCP. Supervising Physician Co-Signing Physician Notes I performed a history and physical examination of the patient today, including specifically on physical exam - soft abdomen. I have discussed the patient's management with the advanced practitioner. Please refer to the nurse practitioner's note for the documented findings and plan of care. Abdominal pain since last ERCP. CT scan and labs today normal. Maybe she is not tolerating the stent. ERCP today for stent removal. Patient was explained in detail regarding risks, benefits, limitations and alternatives of the above endoscopic procedure. Risks of intravenous sedation used for procedure were also explained. Risks include, but not limited to perforation, bleeding, infection, respiratory distress, cardiac arrest and . Patient is also aware about the possibility of missed lesion. Patient's questions were answered. The patient verbalized understanding the information and agreed to undergo the procedure. History of Present Illness Reason for Consultation: Abd pain Requesting Physician: ED physician Attending Physician: Bekah Chaudhry History of Present Illness Ms. Jes Patel is a 66 yr old female pt of TODD Mello who carries a hx of CM-1, CAD, hypothyroidism, HTN, RLS, choledocholithiasis and SOD post distant cholecystectomy. She underwent ERCP on 09/12/21 for SOD and se veral large stones were also found and swept from the bile duct. She has had a lot of pain before the procedure that was only temporarily improved by the ERCP. The upper abd pain worsened significantly 2 days ago and she finds it, "unbearable." She has had nausea and vomited once last night. She has had a few episodes of diarrhea but has a hx of IBS, so diarrhea is not unusual. She has not had any blood in BMs or black BMs. She is awake, alert, oriented, hemodynamically stable. CBC, CMP, LFTs and lipase have been normal. Allergies Allergy/AdvReac Type Severity Reaction Status Date / Time Sulfa (Sulfonamide Allergy Intermediate HIVES Verified 09/27/21 12:37 Antibiotics) insulin glargine AdvReac Severe SEE COMMENT Verified 09/27/21 12:37 [From [facility] U-300 Insulin] Home Medications Medication Instructions Recorded Confirmed Type albuterol sulfate 90 mcg/actuation 2 puff INHALATION QID PRN 06/27/19 09/27/21 History aerosol inhaler (Ventolin HFA) montelukast 10 mg tablet 10 mg PO QAM 06/27/19 09/27/21 History cholecalciferol (vitamin D3) 50 50 mcg PO QAM 05/21/20 09/27/21 History mcg (2,000 unit) capsule (Vitamin D3) gabapentin 100 mg capsule 100 mg PO TID 05/21/20 09/27/21 History levothyroxine 137 mcg tablet 137 mcg PO QAM 08/27/20 09/27/21 History aspirin 81 mg tablet,delayed 81 mg PO BID tab 02/18/21 09/27/21 History release (Adult Low Dose Aspirin) insulin aspart U-100 100 unit/mL 10 unit SUBCUT TIDM ml 02/18/21 09/27/21 History (3 mL) subcutaneous pen (Novolog Flexpen U-100 Insulin aspart) insulin degludec 100 unit/mL (3 15 unit SUBCUT HS 90 Days #13.5 ml 08/02/21 09/27/21 Rx mL) subcutaneous pen (Tresiba FlexTouch U-100 insulin) losartan 25 mg tablet 25 mg PO QAM 09/14/21 09/27/21 History ondansetron 4 mg disintegrating 4 mg PO Q6H PRN 09/14/21 09/27/21 History tablet alendronate 70 mg tablet 70 mg PO WK 09/27/21 09/27/21 History dicyclomine 10 mg capsule 10 mg PO BID PRN 09/27/21 09/27/21 History pantoprazole 40 mg tablet,delayed 40 mg PO DAILYBB 09/27/21 09/27/21 History release rosuvastatin 40 mg tablet (Crestor) 40 mg PO QAM 09/27/21 09/27/21 History Patient History Medical History Anemia Bilateral hip joint arthritis CAD (coronary artery disease) "Moderate diffuse coronary atherosclerosis with type I left anterior descending artery" per 2019 heart cath. Diabetic retinopathy associated with type 1 diabetes mellitus History of biliary stent insertion Hyperlipidemia Hypertension Hypothyroidism RLS (restless legs syndrome) Tobacco use disorder Type 1 diabetes mellitus, uncontrolled A1C > 10% in 11/2020 Vitamin D deficiency Surgical History History of cholecystectomy History of total left knee replacement Hx of cardiac cath Performed for chest pain syndrome. Diffuse moderate CAD, no stents placed, aggressive risk factor modification recommended. Follows with NAVEEN Gaines at [facility]. S/P ERCP 06/28/19 -- MAC #3, ETT 7.0. Family History Other No significant family history Social History Smoking Status: Current every day smoker Cigarettes Per Day: 5 cig a day; Second Hand Exposure: Yes; Hx Alcohol Use: No Hx Substance Use: No Preferred Language: Macedonian Communication Ability: Effective Visual Impairment: No Limitations Hearing Ability: Normal Dispute Coordinator Required: No Beliefs That Will Affect Care: None Current Living Situation: Family Current Living Situation Comment: with son Feels Safe at Home: Yes Assistive Devices: None Review of Systems Review of Systems: ROS: Gen: Denies weakness, fevers, weight loss Eyes: No eye redness, or pain, no recent vision changes Resp: No SOB, no cough Cardio: No palpitations/irregular beats, no chest pain GI: As per HPI, otherwise (-) : Denies pain on urination Skin: No jaundice, itching or new rashes Physical Exam Constitutional: well developed, well nourished, + well hydrated, cooperative and + in distress (describing pain) Eyes: PERRL, conjunctivae normal, anicteric sclerae Neck: trachea midline, no thyromegaly Respiratory: normal respiratory effort, lungs clear to auscultation normal respiratory effort and able to speak in complete sentences; no respiratory distress, no labored breathing, does not use accessory muscles and no cough Cardiovascular: RRR, no murmur, no edema Gastrointestinal (Abdomen): Inspection/Auscultation: abdomen normal to inspection and normal bowel sounds; abdomen not distended and no abdominal edema Percussion/Palpation: + abdomen tender (in the upper abdomen), + guarding and abdomen soft; abdomen not rigid Skin: no rashes, warm and dry normal turgor and + pallor Neurologic: PERRL, EOMI, accommodation nl, no face palsy, no dysarthria awake; not confused Psychiatric: A+Ox3, euthymic affect Orientation: cooperative Lymphatic: no cervical or axillary lymphadenopathy Results & Data ([facility]) Vital Signs (Past 12 Hours) Vital Signs Temp Pulse Resp BP Pulse Ox 09/27/21 11:00 71 31 H 98 09/27/21 10:30 74 31 H 99 09/27/21 10:00 71 17 155/87 H 96 09/27/21 09:30 70 18 159/75 H 96 09/27/21 09:00 72 24 159/82 H 96 09/27/21 08:41 69 32 H 178/91 H 96 09/27/21 08:30 74 20 97 09/27/21 07:55 36.8 C 74 20 190/82 H 97 Laboratory Results WBC 10.9, Hct 34.4, Plts 273, Na 136, K 4.0, Cl 107, CO2 24, BUN 13, Cr 0.5, glucose 180 Diagnostic Findings CTAP w IV contrast on 09/27/21: 1. Near-complete resolution of the previously identified colonic wall thickening. No new areas of bowel wall thickening identified. 2. No evidence for bowel obstruction. 3. A common bile duct stent is in good position with associated pneumobilia. This remains unchanged. Stable mild bile duct dilatation. 4. Colonic diverticulosis. No evidence for acute diverticulitis. (1) Abdominal pain Abdominal location: right upper quadrant Qualified Code(s): R10.11 - Right upper quadrant pain
[2021-09-27] MEDS ORDERED: ONDANSETRON INJ 2 MG/ML 2 ML VIAL ONE (12:22)
--- NOTE | 2021-09-27 12:33 | Anesthesiology Consultation ---
Date of Service September 27, 2021 The patient tested positive for Covid 19 today. She had tested positive on 09/14/21 here but was asymptomatic at that time. The patient possibly had initially tested positive on 08/28/21. I discussed the patient with the Infectio us disease specialist. Since the patient is now at least 14 days out and is not having Covid 19 symptoms she is considered not to be infectious and does not require isolation precautions. Standard Covid 19 precautions are to be taken in the OR but the patient does not need to have the procedure in the isolation room. If the patient is admitted, she will not need isolation precautions but is to be placed in a private room. Assessment & Plan Chart Review Chart Review: Acceptable Risk for Surgery (necessary procedure) and Patient NOT seen in Pre Admission Testing Consults Requested none History Surgery Operation Date: 09/27/21 08:50 Proposed Procedures p Endoscopic Retrograde Cholangiopancreatogram - Mariano Estrada MD Height/Weight Height: 5 ft 4 in Weight: 83.915 kg Allergies Allergy/AdvReac Type Severity Reaction Status Date / Time Sulfa (Sulfonamide Allergy Intermediate HIVES Verified 09/27/21 11:58 Antibiotics) insulin glargine AdvReac Severe SEE COMMENT Verified 09/27/21 11:58 [From Ciarra SolAgustinar U-300 Insulin] Medications Home Medications Medication Instructions Recorded Confirmed Last Taken albuterol sulfate 90 mcg/actuation 2 puff INHALATION QID PRN 06/27/19 09/27/21 08/31/21 aerosol inhaler (Ventolin HFA) montelukast 10 mg tablet 10 mg PO QAM 06/27/19 09/27/21 09/26/21 cholecalciferol (vitamin D3) 50 50 mcg PO QAM 05/21/20 09/27/21 09/26/21 mcg (2,000 unit) capsule (Vitamin D3) gabapentin 100 mg capsule 100 mg PO TID 05/21/20 09/27/21 09/26/21 levothyroxine 137 mcg tablet 137 mcg PO QAM 08/27/20 09/27/21 09/26/21 aspirin 81 mg tablet,delayed 81 mg PO BID tab 02/18/21 09/27/21 09/26/21 release (Adult Low Dose Aspirin) insulin aspart U-100 100 unit/mL 10 unit SUBCUT TIDM ml 02/18/21 09/27/21 09/26/21 (3 mL) subcutaneous pen (Novolog 10 units Flexpen U-100 Insulin aspart) insulin degludec 100 unit/mL (3 15 unit SUBCUT HS 90 Days #13.5 ml 08/02/21 09/27/21 09/26/21 mL) subcutaneous pen (Tresiba FlexTouch U-100 insulin) losartan 25 mg tablet 25 mg PO QAM 09/14/21 09/27/21 09/26/21 ondansetron 4 mg disintegrating 4 mg PO Q6H PRN 09/14/21 09/27/21 09/26/21 tablet alendronate 70 mg tablet 70 mg PO WK 09/27/21 09/27/21 09/22/21 dicyclomine 10 mg capsule 10 mg PO BID PRN 09/27/21 09/27/21 09/26/21 pantoprazole 40 mg tablet,delayed 40 mg PO DAILYBB 09/27/21 09/27/21 09/26/21 release rosuvastatin 40 mg tablet (Crestor) 40 mg PO QAM 09/27/21 09/27/21 09/26/21 Past Medical History Medical History Anemia Bilateral hip joint arthritis CAD (coronary artery disease) "Moderate diffuse coronary atherosclerosis with type I left anterior descending artery" per 2019 heart cath. Diabetic retinopathy associated with type 1 diabetes mellitus History of biliary stent insertion Hyperlipidemia Hypertension Hypothyroidism RLS (restless legs syndrome) Tobacco use disorder Type 1 diabetes mellitus, uncontrolled A1C > 10% in 11/2020 Vitamin D deficiency Past Family History Family History Other No significant family history Past Surgical History Surgical History History of cholecystectomy History of total left knee replacement Hx of cardiac cath Performed for chest pain syndrome. Diffuse moderate CAD, no stents placed, aggressive risk factor modification recommended. Follows with NAVEEN Gaines at [facility]. S/P ERCP 06/28/19 -- MAC #3, ETT 7.0. Social History Smoking Status: Current every day smoker tobacco type: cigarettes Smoking cigarettes per day: 5 cig a day Hx Alcohol Use: No Hx Substance Use: No substance use type: does not use Physical Exam Vital Signs Last Vital Signs Temp 36.8 C 09/27/21 07:55 Pulse 71 09/27/21 11:00 Resp 31 H 09/27/21 11:00 BP 155/87 H 09/27/21 10:00 Pulse Ox 98 09/27/21 11:00 Testing Laboratory Results 09/27/21 08:25 09/27/21 08:25 09/27/21 12:15 POC Glucose 180 H Electrocardiogram Date: 09/27/21 Findings: + NSR @ (67) Chest X-Ray Date: 09/14/21 SINGLE VIEW CHEST CLINICAL HISTORY: Fever. FINDINGS: An AP, portable, upright chest radiograph is compared to study dated 05/21/2020 and correlated with chest CT dated 03/07/2021. The cardiomediastinal silhouette is unremarkable. A calcified granuloma is again seen in the left midlung. The lungs and pleural spaces are otherwise clear. No pneumothorax is seen. The bony thorax is grossly intact. IMPRESSION: No active disease in the chest. ACT 112: Negative or not required by law. Electronically signed by: Isreal Roldan M.D. 09/14/2021 1:21 PM Echocardiogram Date: 06/14/20 EF: 60-65 LV Function: normal Valvular Disease: + no significant valvular disease Other Testing ABDOMEN AND PELVIS CT WITH IV CONTRAST CT DOSE: 279.69 mGy.cm HISTORY: Right upper quadrant pain hx biliary stent placed TECHNIQUE: Multiaxial CT images of the abdomen and pelvis were performed following the use of intravenous contrast. A dose lowering technique was utilized adhering to the principles of ALARA. COMPARISON STUDY: Abdomen and pelvis CT 09/14/2021. FINDINGS: The lung bases are essentially clear. No pneumoperitoneum. No pneumatosis. There is severe osteoarthritis within the left hip. There is a right total hip arthroplasty. There there are small diverticula at the second and third portion of the duodenum. Stable 5 mm hypodense lesion within the right hepatic lobe inferiorly. This favors a small cyst. There are few punctate calcified granulomas within the liver and spleen. The main portal vein is p atent. A common bile duct stent appears in good position. There is associated pneumobilia, unchanged. Stable mild bile duct dilatation. Prior cholecystectomy. The adrenal glands, pancreas, and kidneys are unremarkable. No hydronephrosis. No retroperitoneal lymphadenopathy. Calcified plaque within the mildly ectatic abdominal aorta. Minimal pelvic free fluid. The deep pelvic structures are suboptimally assessed due to the metallic artifact from the right hip prosthesis. However, the bladder appears unremarkable. Colonic diverticulosis. No evidence for acute diverticulitis. The colon is not well-distended. Near- complete resolution of the previously identified colonic wall thickening. No evidence for bowel obstruction. IMPRESSION: 1. Near-complete resolution of the previously identified colonic wall thickening. No new areas of bowel wall thickening identified. 2. No evidence for bowel obstruction. 3. A common bile duct stent is in good position with associated pneumobilia. This remains unchanged. Stable mild bile duct dilatation. 4. Colonic diverticulosis. No evidence for acute diverticulitis. ACT 112: Negative or not required by law. Electronically signed by: Ashish Vigil M.D. 09/27/2021 9:35 AM Dictated:09/27/21 0928
[2021-09-27] MEDS ORDERED: ATROPINE SULFATE 0.1 MG/ML 10ML SYR IV PRN (13:43)
[2021-09-27] MEDS ORDERED: fentaNYL citrate 100 MCG/2 ML VIAL IV PRN (13:43)
[2021-09-27] MEDS ORDERED: ePHEDrine sulfate 50 MG/ML AMP IV PRN (13:43)
[2021-09-27] MEDS ORDERED: ONDANSETRON INJ 2 MG/ML 2 ML VIAL IV PRN ×2 (13:43→16:04)
[2021-09-27] MEDS ORDERED: SUCCINYLCHOLINE CHLORIDE 20 MG/ML 10 ML VIAL IV ONE (13:51)
--- NOTE | 2021-09-27 14:16 | Electrocardiogram Report ---
Test Reason : Blood Pressure : / mmHG Vent. Rate : 067 BPM Atrial Rate : 067 BPM P-R Int : 130 ms QRS Dur : 088 ms QT Int : 386 ms P-R-T Axes : 066 040 027 degrees QTc Int : 407 ms Normal sinus rhythm Normal ECG When compared with ECG of 21-MAY-2020 20:04, Nonspecific T wave abnormality now evident in Inferior leads Confirmed by Joe Cline ([id number]) on 09/27/2021 2:15:37 PM Referred By: REFERRED SELF Confirmed By:Joe Cline
--- NOTE | 2021-09-27 14:25 | Operative Report ---
Post Operative Report Pre & Post Diagnosis Operation Date: 09/27/21 08:50 Pre-Op Diagnosis: NAUSEA, SEVER PAIN I identified the patient and participated in the time-out.: Yes Procedure Operation Date: 09/27/21 08:50 <No data on this case meets the specified criteria> Surgeon Mariano Estrada MD Mechanical Supervisor None Estimated Blood Loss 0 Findings See Below (CBD stent removed. ) Specimens None Description of Procedure ERCP I attest to the content of the Intraoperative Record and any orders documented therein. Any exceptions are noted below.
--- NOTE | 2021-09-27 14:44 | Gastroenterology Progress Note ---
Date of Service September 27, 2021 Subjective ERCP done, biliary stent removed, agree with overnight observation and pain management and advance diet as tolerated. Recall GI if needed. Results & Data ([facility]) Vital Signs (Past 12 Hours) Vital Signs Temp Pulse Pulse Resp BP BP Pulse Ox 09/27/21 12:38 37.1 C 72 20 164/83 H 100 09/27/21 12:32 71 31 H 98 09/27/21 11:00 71 31 H 98 09/27/21 10:30 74 31 H 99 09/27/21 10:00 71 17 155/87 H 96 09/27/21 09:30 70 18 159/75 H 96 09/27/21 09:00 72 24 159/82 H 96 09/27/21 08:41 69 32 H 178/91 H 96 09/27/21 08:30 74 20 97 09/27/21 07:55 36.8 C 74 20 190/82 H 97
--- NOTE | 2021-09-27 14:44 | GI REPORT ---
Patient Name: Jes Patel Procedure Date: 09/27/2021 12:30 PM Date of : 1955 Admit Type: Emergency Department Age: 66 Gender: Female Attending MD: Mariano Estarda MD Procedure: ERCP Providers: Mariano Estrada MD Referring MD: Jose Arvizu M.d. Indications: Biliary stent removal Medicines: General Anesthesia Complications: No immediate complications. Estimated Blood Loss: Estimated blood loss: none. Procedure: Pre-Anesthesia Assessment: - Prior to the procedure, a History and Physical was performed, and patient medications, allergies and sensitivities were reviewed. The patient's tolerance of previous anesthesia was reviewed. - The risks and benefits of the procedure and the sedation options and risks were discussed with the patient. All questions were answered and informed consent was obtained. - Patient identification and proposed procedure were verified prior to the procedure by the physician and the nurse. The procedure was verified in the procedure room. - Pre-procedure physical examination revealed no contraindications to sedation. After obtaining informed consent, the scope was passed under direct vision. Throughout the procedure, the patient's blood pressure, pulse, and oxygen saturations were monitored continuously. The Duodenoscope was introduced through the mouth, and advanced to the duodenum and used to inject contrast into the bile duct. The ERCP was accomplished without difficulty. The patient tolerated the procedure well. Findings: A storage specialist film of the abdomen was obtained. Surgical clips, consistent with a previous cholecystectomy, were seen in the area of the right upper quadrant of the abdomen. A biliary stent was visible on the storage specialist film. The esophagus was successfully intubated under direct vision. The scope was advanced to a normal major papilla in the descending duodenum without detailed examination of the pharynx, larynx and associated structures, and upper GI tract. The upper GI tract was grossly normal. The major papilla was located entirely within a diverticulum. One plastic biliary stent originating in the common bile duct was emerging from the major papilla. One stent was removed from the common bile duct using a snare. A 0.025 inch angled standard wire was passed into the biliary tree. The 8.5 mm balloon was passed over the guidewire and the bile duct was then deeply cannulated. Contrast was injected. I personally interpreted the bile duct images. Ductal flow of contrast was adequate. Image quality was adequate. Contrast extended to the main bile duct. Opacification of the entire biliary tree except for the gallbladder was successful. The maximum diameter of the ducts was 12 mm. The biliary tree was swept with a 15 mm balloon starting at the bifurcation. Nothing was found. Impression: - One stent was removed from the common bile duct. - The biliary tree was swept and nothing was found. Recommendation: - [facility]. - Advance diet as tolerated. - Recall GI if needed. - Return to referring physician. Mariano Estrada MD 09/27/2021 2:43:45 PM This report has been signed electronically. Note Initiated On: 09/27/2021 12:30 PM Number of Addenda: 0 I attest to the content of the Intraoperative Record and orders documented therein, exceptions below {[id number]}
[2021-09-27] MEDS ORDERED: GLUCAGON FOR INJ 1 MG VIAL ONE (14:45)
--- NOTE | 2021-09-27 14:52 | Anesthesiology Progress Note ---
Date of Service September 27, 2021 Anesthesia Post Procedure Vital Signs Vital Signs: Temp Pulse Pulse Resp BP BP Pulse Ox 09/27/21 14:40 36.7 C 98 H 21 164/99 H 100 09/27/21 12:38 37.1 C 72 20 164/83 H 100 09/27/21 12:32 71 31 H 98 09/27/21 11:00 71 31 H 98 09/27/21 10:30 74 31 H 99 09/27/21 10:00 71 17 155/87 H 96 09/27/21 09:30 70 18 159/75 H 96 09/27/21 09:00 72 24 159/82 H 96 09/27/21 08:41 69 32 H 178/91 H 96 09/27/21 08:30 74 20 97 09/27/21 07:55 36.8 C 74 20 190/82 H 97 Transfer of Care Handoff Completed per policy Notes Mental Status: alert / awake / arousable Patient Amnestic to Procedure: Yes Nausea / Vomiting: adequately controlled Pain: adequately controlled Airway Patency, RR, SpO2: stable & adequate BP & HR: stable & adequate Hydration State: stable & adequate Anesthetic Complications: no major complications apparent
--- NOTE | 2021-09-27 14:54 | Fluoroscopy Report ---
[place] ERCP biliary ductal CLINICAL HISTORY: ERCP W/STENT REMOVAL POSSIBLE EXCHANGE COMPARISON STUDY: Abdomen and pelvis CT 09/27/2021. FLUOROSCOPY TIME: 28 seconds. FINDINGS: Initial images demonstrate a common bile duct stent and prior cholecystectomy. The stent wa s removed. Contrast was injected into the common bile duct stent. A balloon sweep was performed. Smal l round filling defects within the common bile duct. Represent gas bubbles. IMPRESSION: Fluoroscopic assistance provided for ERCP as described above. ACT 112: Negative or not required by law. Electronically signed by: Ashish Vigil M.D. 09/27/2021 2:53 PM
[2021-09-27] MEDS ORDERED: PHARMACY GLYCEMIC MGMT CONSULT PRN (16:04)
[2021-09-27] MEDS ORDERED: HYDROmorphone INJ 0.5 MG/0.5 ML SYR IV PRN (16:04)
[2021-09-27] MEDS ORDERED: DICYCLOMINE HCL 10 MG CAP PO PRN (16:04)
[2021-09-27] MEDS ORDERED: DEXTROSE 50% 50 ML SYRINGE IV PRN (16:45)
[2021-09-27] MEDS ORDERED: CARBOHYDRATES FOR HYPOGLYCEMIA PO PRN (16:45)
[2021-09-27] MEDS ORDERED: GLUCOSE 40% GEL 15 GM TUBE PO PRN (16:45)
[2021-09-27] MEDS ORDERED: GLUCOSE 10 TABS/TUBE PO PRN (16:45)
[2021-09-27] MEDS ORDERED: GLUCAGON FOR INJ 1 MG VIAL IM PRN (16:45)
[2021-09-27] MEDS: GABAPENTIN 100 MG CAP PO SCH ×2 (16:54→22:30)
[2021-09-27] MEDS: INSULIN ASPART PER UNIT SC SCH (17:28)
[2021-09-27] MEDS: ACETAMINOPHEN 325 MG TAB PO PRN (19:52)
[2021-09-27] MEDS ORDERED: NON-FORMULARY MEDICATION (Insulin Degludec [Tresiba Flextouch U-100] 100 unit/mL (3 mL) in SQ SCH (21:00)
[2021-09-27] MEDS ORDERED: INSULIN DEGLUDEC 100 UNIT/ML SQ ONE (21:00)
[2021-09-27] MEDS: ASPIRIN 81 MG ECTAB PO SCH (22:31)
[2021-09-28] MEDS: INSULIN ASPART PER UNIT SC SCH ×3 (00:08→12:31)
[2021-09-28] MEDS: ACETAMINOPHEN 325 MG TAB PO PRN ×2 (03:15→07:47)
[2021-09-28] MEDS ORDERED: Nursing to Pharmacy Communication SCH (03:30)
[2021-09-28] MEDS ORDERED: PANTOprazole 40 MG TAB PO SCH (06:30)
[2021-09-28] MEDS ORDERED: LEVOTHYROXINE SODIUM 137 MCG TABLET PO SCH (06:30)
[2021-09-28] MEDS ORDERED: MONTELUKAST SODIUM 10 MG TABLET PO SCH (09:00)
[2021-09-28] MEDS ORDERED: CHOLECALCIFEROL 1,000 UNITS 25 MCG TAB PO SCH (09:00)
[2021-09-28] MEDS ORDERED: ROSUVASTATIN CALCIUM 20 MG TAB PO SCH (09:00)
[2021-09-28] MEDS ORDERED: LOSARTAN POTASSIUM 25 MG TAB PO SCH (09:00)
[2021-09-28] MEDS: GABAPENTIN 100 MG CAP PO SCH ×2 (09:43→13:04)
[2021-09-28] MEDS: ASPIRIN 81 MG ECTAB PO SCH (09:44)
--- NOTE | 2021-09-28 10:19 | Pharmacy Report ---
Pharmacy Glycemic Short Note 2 - Date of Service September 28, 2021 - Glycemic Short BSG Results (Last 24 hours): 09/27/21 09/27/21 09/27/21 12:15 17:06 20:34 POC Glucose 180 H 179 H 82 09/27/21 09/28/21 09/28/21 23:52 03:16 08:07 POC Glucose 199 H 74 137 H OUTPATIENT ANTIDIABETIC REGIMEN: * Tresiba 15 units SC HS * Novolog SC TIDM (carb ratio of 10), ~10 units per meal per patient * HbA1c: 10.4% (09/16/21) ASSESSMENT: * SC is a 66 year old female with T1DM presented to ED yesterday with abdominal pain * Now s/p ERCP w/ stent removal/balloon sweep * Patient was NPO yesterday and received ~50% of home basal dose * Clear liquid diet now ordered PLAN FOR INPATIENT GLYCEMIC CONTROL: * Basal insulin - continue home medication * Tresiba 15 units SC HS * Bolus insulin * NovoLog per scale ACHS or Q6hrs while NPO * Goal Range: Low 120 mg/dL - High 160 mg/dL * Correction Factor: 30 mg/dL/unit * Nutritional / Prandial insulin per carb ratio of 1 unit per 10 grams CHO consumed PLAN FOR DISCHARGE: * HbA1c: 10.4% suggests poor outpatient glycemic control * Patient last seen by Elyssa Porras endocrinology 04/2021, suggest prompt follow-up upon discharge for assessment of outpatient BSGs and insulin adjustments
[2021-09-28] MEDS ORDERED: BUTALBITAL/ACETAMIN/CAFFEINE TAB PO STA (11:21)
--- NOTE | 2021-09-28 11:29 | Discharge Summary ---
Date of Service September 28, 2021 Admission HPI Per Admitting Provider Jes Patel is a 66-year-old female we have recent COVID-19 infection who presents to the ER with abdominal pain, nausea, vomiting (not relived with ondansetron) and diarrhea (yesterday, watery, attributed to a milkshake). This is on a background of biliary colic abdominal pain starting 6 months ago. She had a cholecystectomy in 1995 with her first ERCP 2 years after this. 2 years ago had to have repeat ERCP - no stent placed at that time but had choledocholithiasis. For her current pain she underwent outpatient ERCP on September 12 with stent insertion at that time. She was hospitalized from the to 16 September after this due to recurrence of right upper quadrant pain. She was treated conservatively during that admission with intravenous antibiotics and did not require further ERCP. Her pain never fully resolved however from the ERCP time. Her current pain progressed much worse 2 days ago, right upper quadrant with severity 8 out of 10 on arrival to the ER. Improved on pain medication but no other exacerbating or relieving factors. No melena or bright red blood in stool. No change with bowel movements or when she eats. No current fever or chills. In the ER CT showed good biliary stent position and LFT/lipase within normal limits. CT was concerning only for possible colitis however this does not fit with her description of her pain. Last routine screening colonoscopy 2 years ago she reports was normal. Gastroenterology were contacted and recommended admission under medicine for ERCP today. Principal Diagnosis Abdominal pain secondary to biliary stent Discharge Exam Constitutional WD/WN, vitals as above Eyes PERRL, conjunctivae normal, anicteric sclerae ENMT external ear and nose normal, oropharynx normal Neck trachea midline, no thyromegaly Respiratory normal respiratory effort, lungs clear to auscultation Cardiovascular RRR, no murmur, no edema Chest (Breasts) Chest: normal inspection of chest Gastrointestinal (Abdomen) normal bowel sounds, soft, nontender, no hepatosplenomegaly Musculoskeletal Extremities: extremities normal to inspection; no cyanosis and no clubbing Skin no rashes, warm and dry Neurologic moves all extremities and awake; no focal motor deficits Psychiatric A+Ox3, euthymic affect Lymphatic no lymphedema Discharge Data Allergies Allergy/AdvReac Type Severity Reaction Status Date / Time Sulfa (Sulfonamide Allergy Intermediate HIVES Verified 09/27/21 12:37 Antibiotics) insulin glargine AdvReac Severe SEE COMMENT Verified 09/27/21 12:37 [From Ciarra Burden U-300 Insulin] Consultations 09/27/21 11:11 ED Decision to Admit Stat 09/27/21 16:04 Consult Gastroenterology Routine Procedures Performed Operation Date: 09/27/21 08:50 Actual Procedures p Endoscopic Retrograde Cholangiopancreato with stent removal and balloon sweep - Mariano Estrada MD Ordered Studies 09/27/21 08:05 CT abd pelvis IV con only Stat 09/27/21 13:00 [place] ERCP biliary ductal Routine Hospital Course (1) Abdominal pain: secondary to biliary stent placed in Aug--> ERCP performed and stent removed, no choledocholithiasis LFTs normal Pain much improved, tolerating reg diet and stable for dc to home (2) Uncontrolled type 1 diabetes mellitus with hyperglycemia: HbA1c 10.4 in August. No need to repeat this. On previous admission uses heroin Tresiba due to allergy to Lantus. Usual inpatient dosing of 15 units Tresiba at night. Novolog: * NovoLog per scale ACHS or Q6hrs while NPO * Goal Range: Low 120 mg/dL - High 160 mg/dL * Correction Factor: 30 mg/dL/unit * Nutritional / Prandial insulin per carb ratio of 1 unit per 10 grams CHO consumed * Glucose 281 on admission therefore give 4 units SQ now. Due to type 1 diabetes will consult pharmacy for glycemic control appreciated resume home regimen and f/u with PCP . (3) SARS-CoV-2 positive: Not suspected to have an active infection at this time or to be infective to others given initial test on August 28 and first positive test in our system on September 14. Therefore has been at least 10 days since her infection. No need for Covid isolation however patient should have a single room -unless otherwise informed by infection control. (4) CAD (coronary artery disease): Moderately diffuse disease. No acute issues Continue aspirin, losartan, rosuvastatin. (5) Hypothyroidism: TSH 0.338 in April 2021 Continue levothyroxine 137 mcg p.o. daily (6) Hypertension: Continue losartan (7) RLS (restless legs syndrome): Continue ropinirole 0.5 mg p.o. every afternoon VTE prophylaxis -Lovenox subcu 40 mg daily Disposition - dc to home Total Time Total Time Spent Total Time Spent (In Minutes): 35 min Discharge Plan Discharge Items Patient Disposition: Home - Self-Care Reason For Visit: BILIARY COLIC PAIN Discharge Diagnosis: Biliary Stent-related abdominal pain Condition on Discharge: Good Activity: Resume your previous activity Non-emergency contact: Primary Care Provider Call non-emergency contact if: you have any medication questions, your symptoms worsen, your pain is not controlled, your pain is worsening and you have a fever Follow-up/Referrals: Yaz Pantoja CRNP [Primary Care Provider] - Diet: Carb Consistent or DM2 and Heart Healthy Addtl Attending Provider Instructions: You were admitted with abdominal pain that was relieved with removal of your biliary stent. Please follow up with your PCP within 1-2 weeks after discharge. Pending Studies at Discharge: No Stand-Alone Forms: [employer], Smoking Cessation Medications and DC Order Prescriptions: Continued Tresiba FlexTouch U-100 100 unit/mL (3 mL) insulin pen 15 unit subcut HS 90 Days Qty: 13.5 RF: 3 aspirin [Adult Low Dose Aspirin] 81 mg tablet,delayed release (DR/EC) 81 mg PO BID RF: 0 gabapentin 100 mg Capsule 100 mg PO TID RF: 0 cholecalciferol (vitamin D3) [Vitamin D3] 50 mcg (2,000 unit) Capsule 50 mcg PO QAM RF: 0 levothyroxine 137 mcg tablet 137 mcg PO QAM RF: 0 montelukast 10 mg tablet 10 mg PO QAM RF: 0 albuterol sulfate [Ventolin HFA] 90 mcg/actuation Hfa Aerosol Inhaler 2 puff INHALATION QID PRN (Reason: Shortness Of Breath Or Wheezing) RF: 0 insulin aspart U-100 [Novolog Flexpen U-100 Insulin] 100 unit/mL (3 mL) insulin pen 10 unit subcut TIDM RF: 0 alendronate 70 mg tablet 70 mg PO WK RF: 0 pantoprazole 40 mg tablet,delayed release (DR/EC) 40 mg PO DAILYBB RF: 0 dicyclomine 10 mg capsule 10 mg PO BID PRN (Reason: Abdominal Pain) RF: 0 rosuvastatin [Crestor] 40 mg tablet 40 mg PO QAM RF: 0 losartan 25 mg tablet 25 mg PO QAM RF: 0 ondansetron 4 mg Tablet,Disintegrating 4 mg PO Q6H PRN (Reason: Nausea) RF: 0 Discharge Orders: Discharge Order (Routine); Ordered 09/28/21 Ordered By: Sandra Matias Admission Data Admit Date/Time: 09/27/21 12:25 Attending Provider: Sandra Matias Admit Provider: Harley Hart Primary Care Provider: Yaz Pantoja Other Providers: Harley Hart ; Mariano Estrada Coding Level of Care Code 71471 OBS Care - Discharge Diagnoses Abdominal pain R10.11 Abdominal location: right upper quadrant Uncontrolled type 1 diabetes mellitus with hyperglycemia E10.65 SARS-CoV-2 positive U07.1 CAD (coronary artery disease) I25.10 Hypothyroidism E03.9 Hypertension I10 Hypertension type: essential hypertension RLS (restless legs syndrome) G25.81
[2021-09-28] MEDS ORDERED: INSULIN DEGLUDEC 100 UNIT/ML SQ SCH (21:00)
== END 2021-09-28 15:15 | disposition home or self-care (01) ==
LOC: 3E 07:40 → ED 07:40 → SUATTDRO 12:25 → 3E 12:32

== ENCOUNTER 2022-04-11 05:09 | Observation (INO) ==
--- NOTE | 2022-03-11 10:51 | PAT Medication Instructions ---
Medication Instructions Date of Service March 11, 2022 Home Medications Medication Instructions Recorded [id number]-kdaznbdbzivxe-babltujx 1 cap PO Q6H PRN headache #7 caps 09/28/21 50 mg-300 mg-40 mg capsule (Fioricet) Novolog Flexpen U-100 Insulin 100 See Rx Instructions subcut TID #30 02/05/22 unit/mL (3 mL) subcutaneous mL (insulin aspart U-100) Novolog U-100 Insulin aspart 100 See Rx Instructions subcut 02/05/22 unit/mL subcutaneous solution CONTINOUS #70 mL (insulin aspart U-100) OneTouch Ultra Test (blood sugar #100 ea 02/28/22 diagnostic) albuterol sulfate 90 mcg/actuation aerosol inhaler (Ventolin HFA) 2 puff inhalation QID PRN montelukast 10 mg tablet 10 mg PO QAM cholecalciferol (vitamin D3) 50 mcg (2,000 unit) capsule (Vitamin D3) 50 mcg PO QAM gabapentin 100 mg capsule 100 mg PO TID levothyroxine 137 mcg tablet 137 mcg PO QAM losartan 25 mg tablet 25 mg PO QAM ondansetron 4 mg disintegrating tablet 4 mg PO Q6H PRN alendronate 70 mg tablet 70 mg PO WK pantoprazole 40 mg tablet,delayed release 40 mg PO QAM rosuvastatin 40 mg tablet (Crestor) 40 mg PO QAM kywyqcjben-ooxbvolowdmwf-hpcregfe 50 mg-300 mg-40 mg capsule (Fioricet) 1 cap PO Q6H PRN headache aspirin 81 mg tablet,delayed release (Adult Low Dose Aspirin) 81 mg PO QAM subcutaneous insulin pump (t:slim X2 Basal-IQ Insulin Rice Milling Supervisor) Novolog Flexpen U-100 Insulin 100 unit/mL (3 mL) subcutaneous (insulin aspart U- 100) See Rx Instructions subcut TID Novolog U-100 Insulin aspart 100 unit/mL subcutaneous solution (insulin aspart U-100) See Rx Instructions subcut CONTINOUS OneTouch Ultra Test (blood sugar diagnostic) Continue as directed ondansetron 4 mg disintegrating tablet 4 mg PO Q6H PRN alendronate 70 mg tablet 70 mg PO WK (do NOT take day of surgery) ASK your surgeon for instructions kycvlztxym-uuhmrpqdpiees-ofjcvzbt 50 mg-300 mg-40 mg capsule (Fioricet) 1 cap PO Q6H PRN headache DO NOT take the morning of surgery montelukast 10 mg tablet 10 mg PO QAM cholecalciferol (vitamin D3) 50 mcg (2,000 unit) capsule (Vitamin D3) 50 mcg PO QAM losartan 25 mg tablet 25 mg PO QAM Take morning of surgery With a small sip of water, OTHERWISE NOTHING TO EAT OR DRINK AFTER MIDNIGHT: albuterol sulfate 90 mcg/actuation aerosol inhaler (Ventolin HFA) 2 puff inhalation QID PRN(use if needed; please bring with you to hospital day of surgery if possible) gabapentin 100 mg capsule 100 mg PO TID levothyroxine 137 mcg tablet 137 mcg PO QAM pantoprazole 40 mg tablet,delayed release 40 mg PO QAM rosuvastatin 40 mg tablet (Crestor) 40 mg PO QAM aspirin 81 mg tablet,delayed release (Adult Low Dose Aspirin) 81 mg PO QAM (unless directed otherwise by surgeon) Take evening before surgery albuterol sulfate 90 mcg/actuation aerosol inhaler (Ventolin HFA) 2 puff inhalation QID PRN(if needed) gabapentin 100 mg capsule 100 mg PO TID Insulin Dependent Diabetic Patients Discuss insulin pump management with prescriber. Other Notes If you have any questions please call us at [phone] or [phone] or [phone] or [phone]
--- NOTE | 2022-03-11 10:57 | PAT Medication Instructions ---
Medication Instructions Date of Service March 11, 2022 Home Medications Medication Instructions Recorded jnfxcdeodd-klfqojwrtoofy-zomwsncm 1 cap PO Q6H PRN headache #7 caps 09/28/21 50 mg-300 mg-40 mg capsule (Fioricet) Novolog Flexpen U-100 Insulin 100 See Rx Instructions subcut TID #30 02/05/22 unit/mL (3 mL) subcutaneous mL (insulin aspart U-100) Novolog U-100 Insulin aspart 100 See Rx Instructions subcut 02/05/22 unit/mL subcutaneous solution CONTINOUS #70 mL (insulin aspart U-100) OneTouch Ultra Test (blood sugar #100 ea 02/28/22 diagnostic) albuterol sulfate 90 mcg/actuation aerosol inhaler (Ventolin HFA) 2 puff inhalation QID PRN montelukast 10 mg tablet 10 mg PO QAM cholecalciferol (vitamin D3) 50 mcg (2,000 unit) capsule (Vitamin D3) 50 mcg PO QAM gabapentin 100 mg capsule 100 mg PO TID levothyroxine 137 mcg tablet 137 mcg PO QAM losartan 25 mg tablet 25 mg PO QAM ondansetron 4 mg disintegrating tablet 4 mg PO Q6H PRN alendronate 70 mg tablet 70 mg PO WK pantoprazole 40 mg tablet,delayed release 40 mg PO QAM rosuvastatin 40 mg tablet (Crestor) 40 mg PO QAM hgfutxfevt-exqtsinqhlhaz-ezmbcdtf 50 mg-300 mg-40 mg capsule (Fioricet) 1 cap PO Q6H PRN headache aspirin 81 mg tablet,delayed release (Adult Low Dose Aspirin) 81 mg PO QAM subcutaneous insulin pump (t:slim X2 Basal-IQ Insulin Clubhouse Attendant) Novolog Flexpen U-100 Insulin 100 unit/mL (3 mL) subcutaneous (insulin aspart U- 100) See Rx Instructions subcut TID Novolog U-100 Insulin aspart 100 unit/mL subcutaneous solution (insulin aspart U-100) See Rx Instructions subcut CONTINOUS OneTouch Ultra Test (blood sugar diagnostic) Continue as directed ondansetron 4 mg disintegrating tablet 4 mg PO Q6H PRN alendronate 70 mg tablet 70 mg PO WK( day of surgery) ASK your surgeon for instructions lgtfriickc-rgwejyhhwashl-prwydqvd 50 mg-300 mg-40 mg capsule (Fioricet) 1 cap PO Q6H PRN headache DO NOT take the morning of surgery montelukast 10 mg tablet 10 mg PO QAM cholecalciferol (vitamin D3) 50 mcg (2,000 unit) capsule (Vitamin D3) 50 mcg PO QAM losartan 25 mg tablet 25 mg PO QAM Take morning of surgery With a small sip of water, OTHERWISE NOTHING TO EAT OR DRINK AFTER MIDNIGHT: albuterol sulfate 90 mcg/actuation aerosol inhaler (Ventolin HFA) 2 puff inhalation QID PRN(use if needed; please bring with you to hospital day of surgery if possible) gabapentin 100 mg capsule 100 mg PO TID levothyroxine 137 mcg tablet 137 mcg PO QAM pantoprazole 40 mg tablet,delayed release 40 mg PO QAM rosuvastatin 40 mg tablet (Crestor) 40 mg PO QAM aspirin 81 mg tablet,delayed release (Adult Low Dose Aspirin) 81 mg PO QAM (unless directed otherwise by surgeon) Take evening before surgery albuterol sulfate 90 mcg/actuation aerosol inhaler (Ventolin HFA) 2 puff inhalation QID PRN(if needed) gabapentin 100 mg capsule 100 mg PO TID Insulin Dependent Diabetic Patients Basal rate unless otherwise directed by your diabetic care provider, check with prescriber. Other Notes If you have any questions please call us at [phone] or [phone] or [phone] or [phone]
--- NOTE | 2022-03-18 12:27 | Anesthesiology Consultation ---
Date of Service March 18, 2022 Assessment & Plan (1) Encounter for pre-operative examination: - COVID screening: Per assessment on 03/18: No known COVID-19 positive contacts or current COVID-19 related symptoms. Travel screen negative. Patient vaccinated. Surgeon arranging preop COVID testing. Awaiting results. - S/P ERCP (09/27/21): Grade 1 view, MAC#3, ETT 7.[address] [facility]. No issues noted per post-op anesthesia progress note. - S/P Right EDE (12/22/20): SAB- L3 at [facility]. No issues noted per post-op anesthesia progress note. - Check BSG AM DOS - Cardiology office visit (02/28/22): "Dry cough improved off lisinopril. Tolerating losartan. BP initially elevated on arrival, but improved on my repeat. 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 The patient is to continue all current medications as listed above. No changes were made at today's visit. Recommend regular aerobic exercise. Repeat CMP in the near future to recheck potassium levels on losartan as well as LFT's. She does not wish to have this done today, but order is in and will have done soon." - Elevated LFTs: Cardio recommended obtaining LFTs to monitor while on losartan. Elevated AST 159 and ALT 227 on preop labs done 03/18/22. Awaiting response from cardiology (María Elena BURGESS/JACKIE orellana). Chart Review Chart Review: Patient seen in Pre Admission Testing Teaching & Discussion Pre-Anesthesia Teaching/Discussion Notes: Instructed NPO after midnight before surgery,except medications with 15 cc of water. Medication instructions p rovided according to the PAT guidelines. History Surgery Operation Date: 04/11/22 08:50 Proposed Procedures p Left Total Hip Arthroplasty - Philipp Htuson MD Height/Weight Height: 5 ft 4 in Weight: 70.4 kg Allergies Allergy/AdvReac Type Severity Reaction Status Date / Time Sulfa (Sulfonamide Allergy Unknown Hives Verified 03/18/22 10:16 Antibiotics) Medications Home Medications Medication Instructions Recorded Confirmed Last Taken albuterol sulfate 90 mcg/actuation 2 puff inhalation QID PRN 06/27/19 03/10/22 08/31/21 aerosol inhaler (Ventolin HFA) Shortness Of Breath Or Wheezing montelukast 10 mg tablet 10 mg PO QAM 06/27/19 03/10/22 09/26/21 cholecalciferol (vitamin D3) 50 50 mcg PO QAM 05/21/20 03/10/22 09/26/21 mcg (2,000 unit) capsule (Vitamin D3) gabapentin 100 mg capsule 100 mg PO TID 05/21/20 03/10/22 09/26/21 levothyroxine 137 mcg tablet 137 mcg PO QAM 08/27/20 03/10/22 09/26/21 losartan 25 mg tablet 25 mg PO QAM 09/14/21 03/10/22 09/26/21 ondansetron 4 mg disintegrating 4 mg PO Q6H PRN Nausea 09/14/21 03/10/22 2 tablet alendronate 70 mg tablet 70 mg PO WK 09/27/21 03/10/22 09/22/21 pantoprazole 40 mg tablet,delayed 40 mg PO QAM 09/27/21 03/10/22 09/26/21 release rosuvastatin 40 mg tablet (Crestor) 40 mg PO QAM 09/27/21 03/10/22 09/26/21 brwqeoclgi-rxgokhvsxncxq-wujnydxq 1 cap PO Q6H PRN headache #7 caps 09/28/21 03/10/22 Unknown 50 mg-300 mg-40 mg capsule (Fioricet) aspirin 81 mg tablet,delayed 81 mg PO QAM 11/13/21 03/10/22 Unknown release (Adult Low Dose Aspirin) subcutaneous insulin pump (t:slim 11/13/21 03/06/22 Unknown X2 Basal-IQ Insulin Delivery Supervisor) Novolog Flexpen U-100 Insulin 100 See Rx Instructions subcut TID #30 02/05/22 03/10/22 Unknown unit/mL (3 mL) subcutaneous mL (insulin aspart U-100) OneTouch Ultra Test (blood sugar #100 ea 02/28/22 03/06/22 Unknown diagnostic) Novolog U-100 Insulin aspart 100 See Rx Instructions subcut 03/13/22 Unknown unit/mL subcutaneous solution CONTINOUS #70 mL (insulin aspart U-100) Past Medical History Medical History Age related osteoporosis Possible, prescribed Fosomax Anemia Bilateral hip joint arthritis CAD (coronary artery disease) Moderate non-obstructive CAD per 2019 cardiac cath Diabetic retinopathy associated with type 1 diabetes mellitus Per records, pt denies Elevated LFTs Gastroparesis History of COVID-19 08/2021 Hyperlipidemia Hypertension Hypothyroidism RLS (restless legs syndrome) Sphincter of Oddi dysfunction Type 1 diabetes mellitus, uncontrolled + insulin pump Exercise / Class Metabolic Activity II 4-5 Yardwork/Stairs/Walk up hill (one FS (no CP, no SOB)) Past Family History Family History Mother Family history of diabetes mellitus Other No significant family history Past Surgical History Surgical History History of biliary stent insertion Since removed History of cholecystectomy History of total left knee replacement Hx of cardiac cath 2019 > no stents S/P ERCP ERCP (09/27/21): Grade 1 view, MAC#3, ETT 7.[address] [facility]. No issues noted per post-op anesthesia progress note. Status post right hip replacement Right DEE (12/22/20): SAB- L3 at [facility]. No issues noted per post-op anesthesia progress note. Past Anesthesia History No Hx of Anesthesia Complications and No Family Hx of Anesthesia Complications History of PONV No Hx of PONV and No Hx of Motion Sickness Social History Smoking Status: Current every day smoker tobacco type: cigarettes Smoking cigarettes per day: .5-1 PPD (Intermittent tobacco use x 10+ years) Do You Dip or Chew Tobacco: No Hx Alcohol Use: No Hx Substance Use: No substance use type: does not use Review of Systems Patient denies chest pain, shortness of breath, dyspnea on exertion, fever, chills, cough, wheezing, palpitations. Physical Exam Vital Signs VITALS BP 113/71 P 68 TEMP 99.0 SP02 96%RA RESP 16 PHYSICAL Full cervical extension range of motion. Full TMJ range of motion. TMD 3 finger breaths Mallampati Score 2 Dentition: upper partial Lungs: clear throughout to auscultation Cardiac: regular rate and rhythm, no murmurs noted Spine: normal Carotid arteries: negative bruit Extremities: no edema Lab Results Anesthesia Preop Results Results Anesthesia Widget: WBC 7.53 K/ul (4.8-10.8) 03/18/22 Hgb 11.3 g/dl (12.0-16.0) L 03/18/22 Hct 34.7 % (34.1-44.9) 03/18/22 Plt 224 K/uL (130-400) 03/18/22 Na 137 mmol/L (136-145) 03/18/22 K 3.6 mmol/L (3.5-5.1) 03/18/22 Cl 106 mmol/L (98-107) 03/18/22 CO2 25 mmol/L (21-32) 03/18/22 BUN 15 mg/dl (6-23) 03/18/22 Creat 1.07 mg/dl (0.6-1.2) 03/18/22 Glucose Level 165 mg/dl (70-99(Fasting)) H 03/18/22 PT 10.2 Seconds (9.0-12.0) 03/18/22 PTT 28.2 Seconds (21.0-31.0) 03/18/22 INR 1.0 (0.9-1.1) 03/18/22 HA1c 8.2 % (4.5-5.6) H 03/18/22 Blood Type A Positive 03/18/22 Antibody Screen NEGATIVE 03/18/22 Testing Laboratory Results Starr at surgeon's office made aware of elevated hgba1c* 03/18/22 Total bilirubin 0.3 AST 159 ALT 227 Alk phos 72 Albumin 3.8 Electrocardiogram Date: 09/27/21 NSR at 67bpm. NS TWA. Chest X-Ray Date: 09/14/21 FINDINGS: An AP, portable, upright chest radiograph is compared to study dated 05/21/2020 and correlated with chest CT dated 03/07/2021. The cardiomediastinal silhouette is unremarkable. A calcified granuloma is again seen in the left midlung. The lungs and pleural spaces are otherwise clear. No pneumothorax is seen. The bony thorax is grossly intact. IMPRESSION: No active disease in the chest. Echocardiogram Date: 06/14/20 EF: 60-65% The study was technically adequate. Compared to prior study, there is no significant change. LV wall motion is normal. Normal LV relaxation. No significant valvular pathology. Stress Test Date: 06/13/21 Type: DSE Stress echo negative for inducible ischemia. LVEF 55-59%. Transient mild nauseousness noted at peak stress that resolved early in the post stress recovery interval. No significant valvular disease. 101% MPHR. Cardiac Catheterization Date: 03/15/19 Impression: Moderate diffuse coronary atherosclerosis with type I left anterior descending artery Plan: Aggressive medical therapy with risk reduction
--- NOTE | 2022-04-05 12:56 | History and Physical Report ---
DATE OF ADMISSION: 04/11/2022 CHIEF COMPLAINT: Persistent left hip pain and discomfort. HISTORY OF PRESENT ILLNESS: The patient is a 67-year-old white female who is well known to me from p revious right hip replacement done just about a year ago. She has recovered from this and doing well . She continues to be limited by her left hip pain and discomfort. She describes lateral hip pain a nd groin pain radiating down to her thigh and into her knee. She did have her left knee replaced by Dr. Fisher in the past and it has done pretty well. She limps more as the day goes on. She is happy with her other hip and would like to have her left hip replaced. PAST MEDICAL HISTORY: Significant for, 1. Hypertension. 2. Elevated cholesterol. 3. History of CA in 2019, on medical management, followed by Dr. Shin. 4. Diabetes. 5. Hypothyroidism. 6. Gastroesophageal reflux disease. 7. Half a pack history of smoking. 8. Elevated LFTs, likely related to Tylenol intake and a relatively recent COVID. PAST SURGICAL HISTORY: Includes, 1. Left knee replacement done by Dr. Fisher 11 years ago. 2. Right hip replacement 1+ years out. 3. Hysterectomy. 4. Cholecystectomy. 5. Liver surgery x2. ALLERGIES: SULFA. CURRENT MEDICATIONS: Include, 1. Albuterol. 2. Alendronate. 3. Aspirin. 4. Fioricet. 5. Vitamin D3. 6. Gabapentin. 7. Levothyroxine. 8. Losartan. 9. Montelukast. 10. Insulin. 11. Ondansetron. 12. Pantoprazole. SOCIAL HISTORY: A 67-year-old female. 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 Still smokes half a pa ck of cigarettes a day. Occasional alcohol intake. FAMILY HISTORY: Noncontributory. REVIEW OF SYSTEMS: Significant for smoking history, does have a history of COVID in the past. No hi story of DVT or PE. No current chest pain or shortness of breath. She has recently seen her cardiol ogist and been stable. PHYSICAL EXAMINATION: GENERAL: Shows a pleasant middle-aged female, looks to be in pretty good health. HEENT: Benign. NECK: Supple. No lymphadenopathy. LUNGS: Clear to auscultation. HEART: Regular rate and rhythm. ABDOMEN: Soft, nontender, nondistended. EXTREMITIES: Grossly neurovascularly intact except as follows: Examination of the left hip reveals the patient ambulates with an antalgic gait. Leg lengths appear pretty equal. She does have stiffne ss with hip motion. She can internally rotate to neutral at best. Negative straight leg raise. No knee effusion. Examination of the right hip reveals a well-healed incision. Leg lengths were equal. No pain with h ip motion. X-RAYS: X-rays of the left hip were reviewed. It shows advanced left hip DJD. She has got a little bit of superior cartilage space remaining, but pretty concentric disease. Her right hip replacement looks to be in good position without problems. ASSESSMENT: A 67-year-old female with multiple medical comorbidities including hypertension, elevate d cholesterol, coronary artery disease, status post myocardial infarction, diabetes, hypothyroidism, gastroesophageal reflux disease along with smoking history, now status post a right hip replacement a little over a year ago along with a left knee replacement 11 years ago, with advanced left hip degen erative joint disease. She has failed conservative treatment. She would like to have her left hip f ixed. PLAN: We will take her to the operating room and do left total hip replacement. The risks and benef its of this procedure were explained to the patient and include but not limited to DVT, PE, , in fection, neurological injury, vascular injury, bleeding problem, pain, limited range of motion, stiff ness, incomplete relief of symptoms, etc. The patient understands and desires to proceed. Informed consent was obtained. At the time of her visit, she was still getting medically optimized by her medical care doctor. They are trying to get her blood glucose under better control. Her LFTs have been improving. Assuming m edically cleared, we will proceed with her hip replacement as described above. As far as discharge ruddy fishman, she is planning to be discharged to home. She does not feel like she needs home health or [facility] led nursing. Job ID: [id number]
[2022-04-11] MEDS ORDERED: CeleBREX 200 MG CAP PO SCH (06:00)
[2022-04-11] MEDS ORDERED: METOCLOPRAMIDE HCL 10 MG TABLET PO SCH (06:00)
[2022-04-11] MEDS ORDERED: TRANEXAMIC ACID 1,000 MG **IV Pre-op IV SCH (06:00)
[2022-04-11] MEDS ORDERED: LR 60ML/HR IV SCH (06:00)
[2022-04-11] MEDS ORDERED: FAMOTIDINE 20 MG TAB PO SCH (06:00)
[2022-04-11] MEDS ORDERED: ACETAMINOPHEN 500 MG TAB PO SCH (06:00)
[2022-04-11] MEDS ORDERED: LR 500ML BOLUS, THEN 15ML/HR IV SCH (06:00)
[2022-04-11] MEDS ORDERED: ceFAZolin 2000MG 2,000 MG/15 ML SYR IV SCH (06:00)
[2022-04-11] MEDS ORDERED: BUPIVACAINE 0.5 % 5 MG/1 ML PF 10ML VIAL ONE (06:22)
[2022-04-11] MEDS ORDERED: BUPIVACAINE 0.5 % 5 MG/1 ML MPF 30ML VIAL ONE (06:33)
[2022-04-11] MEDS ORDERED: EPINEPHrine INJ 1 MG/ML AMP ONE (06:33)
[2022-04-11] MEDS ORDERED: fentaNYL citrate 100 MCG/2 ML VIAL ONE (06:40)
[2022-04-11] MEDS ORDERED: MIDAZOLAM HCL 1 MG/ML 2ML VIAL ONE (06:40)
[2022-04-11] MEDS ORDERED: MoRPHine SULFATE PF 1 MG/ML 10 ML AMP/VIAL ONE (06:45)
[2022-04-11] MEDS ORDERED: METOCLOPRAMIDE HCL INJ 5 MG/ML 2 ML VIAL ONE (06:47)
[2022-04-11] MEDS ORDERED: PROPOFOL IV EMULSION 10 MG/ML 20 ML VIAL IV ONE (06:47)
[2022-04-11] MEDS ORDERED: ONDANSETRON INJ 2 MG/ML 2 ML VIAL ONE (06:47)
[2022-04-11] MEDS ORDERED: HYDROmorphone INJ 2 MG/ML SYR/VIAL IV PRN (06:52)
[2022-04-11] MEDS ORDERED: ATROPINE SULFATE 0.1 MG/ML 10ML SYR IV PRN (06:52)
[2022-04-11] MEDS ORDERED: ePHEDrine sulfate 50 MG/ML AMP IV PRN ×2 (06:52→08:59)
[2022-04-11] MEDS ORDERED: ONDANSETRON INJ 2 MG/ML 2 ML VIAL IV PRN ×2 (06:52→08:59)
[2022-04-11] MEDS ORDERED: fentaNYL citrate 100 MCG/2 ML VIAL IV PRN (06:52)
--- NOTE | 2022-04-11 06:58 | History & Physical Bridge Note ---
Date of Service April 11, 2022 History & Physical Bridge Note I have examined the patient, reviewed the History & Physical and in the interval since the performance of the History & Physical I have noted the following changes of clinical significance: no changes noted
[2022-04-11] MEDS ORDERED: DEXTROSE 50% 50 ML SYRINGE IV ONE ×2 (07:55→08:19)
[2022-04-11] MEDS ORDERED: MoRPHine SULFATE 2 MG/ML CARP IV PRN (08:59)
[2022-04-11] MEDS ORDERED: MoRPHine SULFATE PF 1 MG/ML 10 ML AMP/VIAL INT SPINAL ONE (08:59)
[2022-04-11] MEDS ORDERED: diphenhydrAMINE 50 MG/ML VIAL IV PRN (08:59)
[2022-04-11] MEDS ORDERED: NALOXONE HCL 1 MG in SODIUM CHLORIDE 0.9% 1000ML 1,000 ML IV PRN (08:59)
[2022-04-11] MEDS ORDERED: LACTATED RINGER'S 500 ML IV PRN (08:59)
[2022-04-11] MEDS ORDERED: NALOXONE HCL 0.08 MG in SYRINGE 1.8 ML IV PRN (08:59)
[2022-04-11] MEDS ORDERED: NALOXONE HCL 0.4 MG/1 ML VIAL/CARP IV PRN (08:59)
[2022-04-11] MEDS ORDERED: NALBUPHINE HCL INJ 10 MG/ML AMP IV PRN (08:59)
[2022-04-11] MEDS ORDERED: SODIUM CHLORIDE 0.9% 1000ML 1,000 ML IV SCH (09:00)
[2022-04-11] MEDS ORDERED: NO NARCOTICS OR SEDATIVES SCH (09:00)
--- NOTE | 2022-04-11 09:01 | Operative Report ---
PG Post Operative Report Pre & Post Diagnosis Operation Date: 04/11/22 07:00 Pre-Op Diagnosis: Left Hip Advanced Degenerative Joint Disease Post-Op Diagnosis: Left Hip Advanced Degenerative Joint Disease I identified the patient and participated in the time-out.: Yes Procedure Operation Date: 04/11/22 07:00 Actual Procedures p Left Total Hip Arthroplasty--Uncemented(Left) - Philipp Hutson MD Surgeon Philipp Hutson MD Grapple Yarder Operator Shorty De La O PA-C Estimated Blood Loss 200 Findings Consistent with Post-Op Diagnosis Operative findings were advanced left hip DJD. She had grade 4 iltn-zd-yvbd disease of the femoral head and acetabulum. She had fairly symmetrical disease with anti-inflammatory look to it. Fluids 1800 cc Specimens Left femoral head sent for pathology Drains None Anesthesia Type Spinal MAC Complications none Disposition Accompanied Patient To Recovery: Yes Indications Patient is 67-year-old female said a several year history of bilateral hip pain discomfort. She been through extensive conservative treatment. She had a right hip replaced a year ago and did well with that. She continued to be debilitated by her left hip pain. X-ray showed advanced hip arthritis. She elected proceed with surgical management. Description of Procedure Operative implants consist of: 1 Biomet G7 size 50 mm acetabular shell. 2. 6.5 cancellous acetabular screws 1 of 35 mm length and 1 of 30 mm length. 3. [place] hole citizenship instructor. 4. Highly cross-linked polyethylene liner with a 50 mm outer diameter 36 mm inner diameter. 5. DePuy Corail size 13 KLA femoral stem. 6. +5/36 mm ceramic articular ball. The patient was taken the operating, identified, placed on the operating table supine position protectors were properly padded. IV antibiotics tried by anesthesia team. A spinal anesthetic and been implemented holding area. Scruggs catheter was placed in sterile fashion. The patient was then placed in the right lateral decubitus position. An axillary roll was placed. A Stulberg hip positioner was used for positioning. Left hip and leg were then prepped and draped in usual sterile fashion. A posterolateral approach to the left hip was then performed through a curvilinear incision centered over the greater trochanter. Sharp dissection Through subcutaneous tissues down to the IT band gluteal fascia the IT band gluteal fascia/longitudinally in line with skin incision. The underlying greater bursa was excised. The piriformis and external rotators were tagged and taken off the posterior aspect hip joint capsule. Great care was taken throughout the procedure protect the sciatic nerve at all times. A posterior capsulotomy was then performed leaving a large flap for later repair. Hip was internally rotated and dislocated. A femoral neck osteotomy cut was made with a Final Cut about 11 to 12 mm above the lesser trochanter. Femoral head was removed and sent for pathology per the femur retracted anteriorly. Attention drawn the acetabulum. The acetabular labrum was excised. Pulmonary fat was excised. Sequential reaming the acetabular was then performed begin with size 43 and progressing up to 49. We reamed just a little bit with a 50 reamer and then placed a 50 mm cup in about 40 degrees lateral opening and 20 degrees of anteversion. Was fixed with two 6.5 cancellous acetabular screws. Inferior and posterior osteophyte was removed. A small anterior osteophyte was removed. Triannual trial liner was placed. Attention drawn the femur. The proximal femur was entered with a cookie cutter followed by canal finder. I then broached begin the size 8 and progressed up to a 12. We trialed the hip and everything felt perfect with a 12. There was still little rotation the stem so we did take this 12 stem out and broached to a 13. Got excellent fit with this. We elect to place these implants. Nupathe all trial implants were removed. An apex hole citizenship instructor was placed. Highly cross-linked polyethylene liner was placed. I DePuy a size 13 KLA femoral stem was impacted in position. +530/36 mm ceramic articular ball was placed. Hip was located once again found to be stable. Attention drawn toward closing. Wounds irrigated scope soft pulsatile lavage solution. I did inject locally with 60 cc of half percent Marcaine with epinephrine. The posterior capsule external rotators were then repaired through drill holes in the posterior trochanter with #2 Tycron suture. The IT band gluteal fascia then closed in 1 PDS suture running fashion for subcutaneous tissue then closed with 2 Dexon suture in a buried interrupted fashion. Skin was closed skin yi. Leg was then cleaned and dried a sterile dressing was Xeroform, 4 x 4's, sterile ABD pad and foam tape was applied. The patient then transferred to the recovery room in stable condition. Patient tolerated procedure well no complications. Shorty Ferreira, my physician assistant statistician, was present for the entire procedure. His assistance was required for proper patient positioning, prepping and draping, surgical exposure, retraction, perform the technical details of the operation, placement of the implants, closure of the wound and placement of sterile bandage. I attest to the content of the Intraoperative Record and any orders documented therein. Any exceptions are noted below.
[2022-04-11] MEDS ORDERED: NovoLIN-R INSULIN PER UNIT CHARGE ONE (09:21)
[2022-04-11] MEDS ORDERED: SODIUM CHLORIDE 0.9% 1000ML 500 ML IV ONE (09:26)
[2022-04-11 09:54] LABS: BUN Creatinine Ratio 19.8 (10-20); Calcium 8.2 mg/dl (8.5-10.1); Creatinine Clr Calc Pharmacy 67.1 ml/min; Est GFR (African American) 88.3 ml/min; Est GFR (Non-African American) 76.2 ml/min; Potassium 4.3 mmol/L (3.5-5.1)
--- NOTE | 2022-04-11 10:18 | XRay Report ---
XR hip 1V LT w pelvis HISTORY: 67 years-old Female IN PACU - A/P PELVIS and LATERAL HIP left hip total joint arthroplasty COMPARISON: Radiographs 03/06/2022 TECHNIQUE: AP view of the pelvis with crosstable lateral view of the left hip FINDINGS: Unremarkable appearance of the right hip total joint arthroplasty. Left hip total joint arthroplasty is also in satisfactory alignment. No acute fracture, dislocation or unexpected opaque foreign body. Lateral skin yi are present along with expected postoperative soft tissue swelling and deep tiss ue air. Surgical clip projects over the left hemipelvis. IMPRESSION: Left hip total joint arthroplasty with expected postoperative changes. ACT 112: Negative or not required by law. The above report was generated using voice recognition software. It may contain grammatical, syntax o r spelling errors. Electronically signed by: Jake Capellan M.D. 04/11/2022 10:16 AM
--- NOTE | 2022-04-11 10:30 | Anesthesiology Progress Note ---
Date of Service April 11, 2022 Anesthesia Post Procedure Vital Signs Vital Signs: Temp Pulse Pulse Resp BP Pulse Ox O2 Del Method 04/11/22 09:55 68 17 115/64 95 Room Air 04/11/22 10:05 36.3 C L 64 14 113/58 L 93 Room Air 04/11/22 09:45 67 11 L 102/53 L 92 Room Air 04/11/22 09:35 66 14 120/61 92 Room Air 04/11/22 09:15 71 10 L 109/65 93 Room Air 04/11/22 09:05 76 12 111/59 L 94 Room Air 04/11/22 09:25 78 16 110/57 L 96 Room Air 04/11/22 08:55 82 8 L 121/54 L 98 Oxymask 04/11/22 08:48 36.6 C 86 15 110/54 L 99 Oxymask 04/11/22 05:46 36.7 C 70 18 128/73 96 Room Air O2 Flow Rate 04/11/22 09:55 04/11/22 10:05 04/11/22 09:45 04/11/22 09:35 04/11/22 09:15 04/11/22 09:05 04/11/22 09:25 04/11/22 08:55 2 04/11/22 08:48 2 04/11/22 05:46 Pain Intensity Left Hip: Pain Intensity: 8 Transfer of Care Handoff Completed per policy Notes Mental Status: alert / awake / arousable and participated in evaluation Patient Amnestic to Procedure: Yes Nausea / Vomiting: adequately controlled Pain: adequately controlled Airway Patency, RR, SpO2: stable & adequate BP & HR: stable & adequate Hydration State: stable & adequate Anesthetic Complications: no major complications apparent and Pt Satisfied with anesthetic care Notes: intraop, pt insulin pump registered bg ~40. pt was treated with D50. upon leaving OR, pump read 150 and finger stick read ~450. Serum glucose was in 400s. About twenty mins into pacu, pt pump read 400. 2 units regular insulin was given and a 500 cc NS bolus. pt pump and finger stick now read 350 and 378 respectively. Pt to start treating according to her protocol.
[2022-04-11] MEDS: SODIUM CHLORIDE 0.9% 1000ML 1,000 ML IV SCH ×2 (10:50→21:17)
[2022-04-11] MEDS ORDERED: ALUMINUM/MAGNESIUM SUSP 30 ML UDC PO PRN (10:59)
[2022-04-11] MEDS ORDERED: METOCLOPRAMIDE HCL INJ 5 MG/ML 2 ML VIAL IV PRN (10:59)
[2022-04-11] MEDS ORDERED: NON-FORMULARY MEDICATION (Insulin Aspart U-100 [Novolog Flexpen U-100 Insulin] 100 unit/mL SQ SCH (10:59)
[2022-04-11] MEDS ORDERED: INSULIN ASPART PER UNIT SQ SCH (10:59)
[2022-04-11] MEDS ORDERED: bisacodyL 10 MG SUPP PR PRN (10:59)
[2022-04-11] MEDS ORDERED: PHARMACY GLYCEMIC MGMT CONSULT PRN (10:59)
[2022-04-11] MEDS ORDERED: MAGNESIUM HYDROXIDE SUSP 30 ML UDC PO PRN (10:59)
[2022-04-11] MEDS ORDERED: ALBUTEROL HFA 8 GM INHALER INH PRN (10:59)
[2022-04-11] MEDS ORDERED: INSULIN HUMAN REGULAR IV SCH (11:30)
[2022-04-11] MEDS ORDERED: BUTALBITAL/ACETAMIN/CAFFEINE TAB PO PRN (11:38)
--- NOTE | 2022-04-11 11:51 | Pharmacy Report ---
Pharmacy Glycemic Short Note 2 - Date of Service April 11, 2022 - Glycemic Short BSG Results (Last 24 hours): 04/11/22 04/11/22 04/11/22 05:43 09:00 09:03 Glucose POC Glucose 99 543 H* 498 H* 04/11/22 04/11/22 04/11/22 09:10 09:18 10:23 Glucose 459 H* POC Glucose 508 H* 374 H* OUTPATIENT ANTIDIABETIC REGIMEN: * Tandem slim pump with basal rate of 0.6 units/hr * HbA1C = 8.2% (03/18/22) ASSESSMENT: * Ms Patel is a 67 y/o F with a PMH of T1DM on a Tandem Slim pump who presents for hip surgery. * Patient was given 1.5 amps of D50 intraop + D5LR. BSGs after surgery were 458/508. Patient given 2 units IV and BSG trended downwards to 374. Patient then corrected with pump. * Pt is to manage BSGs with insulin pump per outpatient settings. * RN will have patient read and sign agreement [id number] Insulin Pump Therapy Patient Agreement. * RN will provide and explain form [id number] Flowsheet for Patient * Patient will document their insulin dose given on NS-[id number] which is kept at the bedside, available to caregivers upon request, and which becomes part of the permanent medical record. If at any time the patients condition evidences that he/she is not able to manage the insulin pump (i.e. frequent hypo/hyperglycemia) Pharmacy will assume glycemic control by discontinuing the pump & managing with SQ basal bolus insulin regimen for the interim. PLAN FOR INPATIENT GLYCEMIC CONTROL: * Insulin pump per outpatient settings
[2022-04-11] MEDS: LOSARTAN POTASSIUM 25 MG TAB PO SCH (11:58)
[2022-04-11] MEDS ORDERED: INSULIN ASPART 100 UNITS/ML VIAL SC PRN (12:00)
[2022-04-11] MEDS ORDERED: GLUCAGON FOR INJ 1 MG VIAL SQ PRN (12:00)
[2022-04-11] MEDS ORDERED: GLUCOSE 40% GEL 15 GM TUBE PO PRN (12:00)
[2022-04-11] MEDS ORDERED: GLUCOSE 10 TAB/TUBE PO PRN (12:00)
[2022-04-11] MEDS ORDERED: DEXTROSE 50% 50 ML SYRINGE IV PRN (12:00)
[2022-04-11] MEDS ORDERED: CARBOHYDRATES FOR HYPOGLYCEMIA PO PRN (12:00)
[2022-04-11] MEDS: KETOROLAC 30 MG/ML VIAL IV SCH ×3 (12:16→23:21)
[2022-04-11] MEDS: MULTIVITAMIN TAB PO SCH (12:19)
[2022-04-11] MEDS: MONTELUKAST SODIUM 10 MG TABLET PO SCH (12:19)
[2022-04-11] MEDS: DOCUSATE SODIUM 100 MG CAP PO SCH ×2 (12:20→21:56)
[2022-04-11] MEDS: LEVOTHYROXINE SODIUM 137 MCG TABLET PO SCH (12:20)
[2022-04-11] MEDS: PANTOprazole 40 MG TAB PO SCH (12:20)
[2022-04-11] MEDS: ASPIRIN 81 MG ECTAB PO SCH ×2 (12:20→21:56)
[2022-04-11] MEDS: DOCUSATE SODIUM/SENNA 50/8.6MG TAB PO SCH (12:20)
[2022-04-11] MEDS: ACETAMINOPHEN 500 MG TAB PO SCH ×2 (14:01→21:57)
[2022-04-11] MEDS ORDERED: TRANEXAMIC ACID / 0.7% NACL 1,000 MG/100 ML BAG IV SCH (15:00)
[2022-04-11] MEDS: NovoLOG INSULIN PUMP SCH ×2 (15:01→21:58)
[2022-04-11] MEDS: ceFAZolin 1000MG 1,000 MG/7.5 ML SYR IV SCH ×2 (15:01→23:22)
[2022-04-11] MEDS: ASCORBIC ACID 500 MG TAB PO SCH (16:57)
[2022-04-11] MEDS: SENNA 8.6 MG TAB PO SCH (21:57)
[2022-04-12] MEDS ORDERED: DC INTRASPINAL MORPHINE SCH (02:59)
[2022-04-12] MEDS ORDERED: ONDANSETRON INJ 2 MG/ML 2 ML VIAL IV PRN (03:00)
[2022-04-12] MEDS ORDERED: HYDROmorphone INJ 0.5 MG/0.5 ML SYR IV PRN (03:00)
[2022-04-12] MEDS ORDERED: NALOXONE HCL 0.4 MG/1 ML VIAL/CARP IV PRN (03:00)
[2022-04-12] MEDS: GABAPENTIN 100 MG CAP PO SCH ×4 (03:07→20:15)
[2022-04-12] MEDS: traMADol HCL 50 MG TABLET PO PRN ×3 (03:49→20:38)
[2022-04-12] MEDS: ACETAMINOPHEN 500 MG TAB PO SCH ×3 (05:29→21:35)
[2022-04-12] MEDS: KETOROLAC 30 MG/ML VIAL IV SCH ×4 (05:29→21:36)
--- NOTE | 2022-04-12 09:05 | Progress Notes ---
DATE OF SERVICE: 04/12/2022. SUBJECTIVE: A 67-year-old female, postoperative day 1 from a left hip replacement. She is doing pre tty well. She got up and walked this morning. No chest pain or shortness of breath. Not feeling di zzy or lightheaded. OBJECTIVE: VITAL SIGNS: Temperature 37.7. Vital signs are stable. GENERAL: Shows a pleasant middle-aged female. She is sitting up in bed and looks pretty comfortable this morning. LUNGS: Clear to auscultation. HEART: Regular rate and rhythm. ABDOMEN: Soft, nontender, nondistended. EXTREMITIES: Grossly neurovascularly intact except as follows: Examination of the left hip and leg reveals the dressing to be clean, dry and intact. Leg lengths we re equal. Thigh is soft and supple. She is neurologically intact. She can dorsiflex and plantarfle x her foot appropriately. LABORATORY DATA: Labs are pending. ASSESSMENT: A 67-year-old female, postoperative day 1 from a left hip replacement, doing pretty well . Pain is controlled. Hip is located. She is neurologically intact. PLAN: 1. DVT prophylaxis includes thigh-high TEDs, SCDs, and aspirin twice a day. 2. PT, OT, weightbear as tolerated. Left total hip protocol. 3. Pain control, doing okay with current pain regimen. 4. Disposition: She is planning to be discharged to home. She is refusing home health. She did go through hip surgery on her other side a year ago and did pretty well. She has her son at home to he lp her. We will see how therapy goes today. Job ID: [id number]
[2022-04-12] MEDS: NovoLOG INSULIN PUMP SCH ×4 (09:07→21:34)
[2022-04-12 09:11] LABS: Basophils # (auto) 0.04 K/uL (0-0.2); Basophils % (auto) 0.6 %; Eosinophils # (auto) 0.05 K/uL (0-0.50); Eosinophils % (auto) 0.7 %; Hemoglobin 7.7 g/dl (12.0-16.0); Immature Granulocytes # (auto) 0.02 K/uL (0.00-0.02); Immature Granulocytes % (auto) 0.3 %; Lymphocytes # (auto) 0.83 K/uL (1.2-3.4); Lymphocytes % (auto) 11.7 %; Mean Corpuscular Hemoglobin 30.9 pg (25.0-34.0); Mean Corpuscular Hgb Conc 32.1 g/dL (32.0-36.0); Mean Corpuscular Volume 96.4 fL (80.0-100.0); Mean Platelet Volume 10.1 fL (9.4-12.3); Monocytes # (auto) 0.47 K/uL (0.24-0.82); Monocytes % (auto) 6.6 %; Neutrophils # (auto) 5.69 K/uL (1.4-6.5); Neutrophils % (auto) 80.1 %; Platelet Count 147 K/uL (130-400); RBC Morphology Unremarkable; RDW Coefficient of Variation 14.7 % (11.5-14.5); RDW Standard Deviation 51.7 fL (36.4-46.3); Red Blood Count 2.49 M/uL (3.93-5.22)
[2022-04-12 09:16] LABS: BUN Creatinine Ratio 26.7 (10-20); Calcium 7.8 mg/dl (8.5-10.1); Creatinine Clr Calc Pharmacy 90.6 ml/min; Est GFR (African American) 110.9 ml/min; Est GFR (Non-African American) 95.7 ml/min; Potassium 3.5 mmol/L (3.5-5.1)
[2022-04-12] MEDS: MONTELUKAST SODIUM 10 MG TABLET PO SCH (09:54)
[2022-04-12] MEDS: LOSARTAN POTASSIUM 25 MG TAB PO SCH (09:54)
[2022-04-12] MEDS: MULTIVITAMIN TAB PO SCH (09:54)
[2022-04-12] MEDS: PANTOprazole 40 MG TAB PO SCH (09:54)
[2022-04-12] MEDS: CHOLECALCIFEROL 1,000 UNITS 25 MCG TAB PO SCH (09:55)
[2022-04-12] MEDS: LEVOTHYROXINE SODIUM 137 MCG TABLET PO SCH (09:55)
[2022-04-12] MEDS: ASPIRIN 81 MG ECTAB PO SCH ×2 (09:56→20:14)
[2022-04-12] MEDS: ASCORBIC ACID 500 MG TAB PO SCH ×2 (09:56→15:59)
[2022-04-12] MEDS: DOCUSATE SODIUM 100 MG CAP PO SCH ×2 (09:57→20:15)
[2022-04-12] MEDS: DOCUSATE SODIUM/SENNA 50/8.6MG TAB PO SCH (09:57)
[2022-04-12] MEDS ORDERED: diphenhydrAMINE Capsule 25 MG CAP PO ONE (10:10)
[2022-04-12] MEDS: SENNA 8.6 MG TAB PO SCH (20:16)
[2022-04-13] MEDS: ACETAMINOPHEN 500 MG TAB PO SCH ×2 (05:33→13:04)
[2022-04-13] MEDS: KETOROLAC 30 MG/ML VIAL IV SCH (05:34)
[2022-04-13 08:11] VITALS: BP 118/70; PULSE 86; TEMP 99.1; O2SAT 97
[2022-04-13] MEDS: traMADol HCL 50 MG TABLET PO PRN ×2 (08:15→13:46)
[2022-04-13] MEDS: DOCUSATE SODIUM/SENNA 50/8.6MG TAB PO SCH (08:17)
[2022-04-13] MEDS: MONTELUKAST SODIUM 10 MG TABLET PO SCH (08:17)
[2022-04-13] MEDS: MULTIVITAMIN TAB PO SCH (08:17)
[2022-04-13] MEDS: PANTOprazole 40 MG TAB PO SCH (08:17)
[2022-04-13] MEDS: ASPIRIN 81 MG ECTAB PO SCH (08:17)
[2022-04-13] MEDS: LEVOTHYROXINE SODIUM 137 MCG TABLET PO SCH (08:17)
[2022-04-13] MEDS: GABAPENTIN 100 MG CAP PO SCH ×2 (08:17→13:46)
[2022-04-13] MEDS: CHOLECALCIFEROL 1,000 UNITS 25 MCG TAB PO SCH (08:17)
[2022-04-13] MEDS: LOSARTAN POTASSIUM 25 MG TAB PO SCH (08:17)
[2022-04-13] MEDS: ASCORBIC ACID 500 MG TAB PO SCH (08:17)
[2022-04-13] MEDS: DOCUSATE SODIUM 100 MG CAP PO SCH (08:18)
[2022-04-13] MEDS: NovoLOG INSULIN PUMP SCH ×2 (08:18→13:01)
--- NOTE | 2022-04-13 09:13 | Progress Notes ---
DATE OF SERVICE: 04/13/2022. SUBJECTIVE: A 67-year-old white female, postoperative day 2 from a left hip replacement. She strugg led a little bit with therapy yesterday, so decided to stay in the hospital. She is doing better thi s morning. Pain is controlled. No chest pain or shortness of breath. Not feeling dizzy or lighthea ded. OBJECTIVE: VITAL SIGNS: Temperature 37.3. Vital signs are stable. GENERAL: Shows a pleasant middle-aged female. She is sitting up in her bedside chair, looks comfort able. EXTREMITIES: Examination of the left hip reveals the dressing to be clean, dry and intact. Leg nunu ths were equal. No drainage. Thigh is soft and palpable. She is neurologically intact. PLAN: 1. DVT prophylaxis includes thigh-high, TEDs, SCDs, and aspirin twice a day. 2. PT, OT, weightbear as tolerated. Left total hip protocol. 3. Pain control, doing well with current pain regimen. 4. Disposition: Plan to discharge to home and she is just going to do her own therapy. She is a ye ar out from the other hip and feels like she can do her own. Return visit in 2 weeks. Job ID: [id number]
--- NOTE | 2022-04-15 08:40 | Discharge Summary ---
Date of Service April 15, 2022 Admission HPI (Per Admitting) The patient is a 67-year-old female now a year out from right hip replacement. The right hip is doing great. She continues to be disabled by left hip pain and discomfort. She describes lateral hip pain, groin pain, thigh pain radiating down into her knee. She really limps pretty much all the time. Pain has gradually gotten worse. She is ready to have this fixed. Very happy with her right knee. She did have her left knee replaced by Dr. Fisher 11 years ago and it is doing okay. She would now like to proceed with left hip replacement. Principal Diagnosis Same as "Discharge Diagnosis" noted below under Discharge Instructions. Discharge Exam Gen: This is a pleasant middle-aged female. She looks to be in good health. HEENT: Benign. Neck: Supple. No lymphadenopathy. Lungs: Clear to auscultation. Heart: Regular rate and rhythm. Abdomen: Soft, nontender, and nondistended. Extremities: Grossly neurovascularly intact except as follows: Examination of her hip reveals the patient ambulates with a significantly antalgic gait. Examination of the right hip reveals a well-healed incision. Leg lengths are equal. She has painless hip motion. Examination of the left hip reveals leg lengths are equal. Very stiff hip with internal rotation neutral. Negative straight leg raise. No knee effusion. She is neurologically intact. Discharge Data Procedures Performed Operation Date: 04/11/22 07:00 Actual Procedures p Left Total Hip Arthroplasty--Uncemented(Left) - Philipp Hutson MD Hospital Course (1) Status post total hip replacement, left: Pt underwent elective L DEE with Dr. Hutson on 04/11. No surgical complications or post operative complications while admitted. She was discharged home on 04/13. PG Care Time/CCT Total # of Minutes Spent Total Time Spent with Patient: Total time spent is greater than 50% in coordination of care (as documented) at patient's floor/unit and/or counseling patient: Discharge Plan Discharge Items Patient Disposition: Home - Self-Care Reason For Visit: Left Hip Degenerative Joint Disease Discharge Diagnosis: Left Hip Replacement Activity: Per Instructions section Activity Comment: Follow/Obey Hip PRecautions at all times Weightbearing: Full weightbearing Weightbearing Comment: Weightbear as tolerated obeying hip precautions at all times. Non-emergency contact: Surgeon Call non-emergency contact if: you have any medication questions Follow-up/Referrals: Yaz Pantoja CRNP [Primary Care Provider] - Diet: Carb Consistent or DM2 Addtl Attending Provider Instructions: ACTIVITY RECOMMENDATIONS: Physical Therapy: * Aggressive physical therapy is not usually needed. You will learn to take care of yourself safely and walk. * Follow the "Hip Precautions Instructions." * In some cases, the web content & social media manager at the hospital will arrange to have a therapist come to your house for the first couple of weeks to help you learn these skills. * You need to practice on your own or with the help of a family member as needed. * When you learn these skills, most of the therapy can be done on your own. Home Exercise: * You were shown a series of exercises in the hospital. Do these exercises three to four times each day including the exercises you were shown in physical therapy. Walking: * Get up and walk several times each day. For the first four weeks, try not to stand or walk for more than one hour at a time. If you do stand or walk for more than one hour, you will not hurt anything, but your leg will likely swell. * As you feel comfortable, you may change from the walker or crutches to a cane and then to independent walking. MEDICATIONS: New Medicine: * You will likely be taking one or more of these medicines: 1. Tramadol - Take, as directed, when you need it, every six hours to control your pain. 2. Aspirin - Thins your blood to lessen the chance of forming a blood clot. * The most common side effects of pain medicine and iron are nausea and constipation. If nausea or constipation is too much of a problem or if you have any questions about your new medicines or doses, call [facility] at [phone]. We will try to help you manage these issues. "VERY IMPORTANT TO READ AND REVIEW" Pain: * The immediate post-operative period after hip replacement surgery is often quite painful. * You are given a prescription for pain medicine. You should take it, as directed, when you need it, especially before physical therapy and before going to bed. Pain that interferes with sleep is very common and can last several months. * You will likely need pain medicine for the first two to four weeks. It will not stop all of the pain. The pain will lessen and as you feel better, you may change to milder pain medicine such as Tylenol. * The most common side effects of pain medicine are nausea and constipation, so don't take more than you need. SPECIAL CARE INSTRUCTIONS: TEDs/Elastic Stockings: * The white elastic stockings help limit swelling and prevent blood clots from forming in your legs. The more you wear them, the more they work. * Wear them for six weeks. Incision Site Care: * Remove dressing postoperative day 2 and then shower. Keep direct shower pressure off the incision site. * After showering, cover jacinto with dry gauze and change daily or more frequently if the dressing is getting saturated with drainage. * May completely stop using bandage if wound is dry and no drainage * Jacinto are removed between 2 and 3 weeks post-op. If your follow-up appointment is made before 2 weeks, please have your appointment re- scheduled. It is too early to remove the jacinto. Prevention of Infection: * Take antibiotics one hour before any dental cleaning, dental work, urological procedure, gastrointestinal procedure or any invasive surgery in order to prevent your new joint from getting infected. * You may get the antibiotics from the doctor performing the procedure or you may call our office at before and we will call in a prescription to the pharmacy of your choice. Things to Watch For: * Drainage from the incision site that occurs more than one week after your surgery. * Severely increased leg pain or swelling. * Increased redness at the incision site. * Fever above 102 degrees Fahrenheit. * Unusual chest pain or shortness of breath. * Unusual pain or burning with urination. Call [facility] at with any of the above problems or if you have any questions about your medicines or recovery. FOLLOW UP VISIT: Make an appointment to see your doctor for approximately two weeks after surgery for a progress check and staple removal by calling the office at . Pending Studies at Discharge: No Stand-Alone Forms: [facility] Medications and DC Order Prescriptions: Continued insulin aspart U-100 [Novolog Flexpen U-100 Insulin] 100 unit/mL (3 mL) insulin pen See Rx Instructions subcut TID Qty: 30 2RF Rx Instructions: in case of pump failure TDD 70 units subcut three times a day; (VERIFIED WITH PT PAT CALL 03/10/22) (DME) OneTouch Ultra Test Strip See Rx Instructions .ROUTE .MEDSUPPLY Qty: 100 3RF Rx Instructions: test 1 time daily Humalog KwikPen Insulin 200 unit/mL (3 mL) insulin pen 0RF insulin aspart U-100 [Novolog U-100 Insulin aspart] 100 unit/mL solution See Rx Instructions subcut CONTINOUS Qty: 70 3RF Rx Instructions: insulin pump TDD 70 units subcut continuous; (VERIFIED WITH PT PAT CALL 03/10/22) Must be brand necessary tramadol 50 mg tablet 50 - 100 mg PO Q6H PRN (Reason: pain) Qty: 40 0RF Rx Instructions: Take as needed for pain. ondansetron HCl 4 mg tablet 4 mg PO Q6 PRN (Reason: nausea) Qty: 20 1RF ketorolac 10 mg tablet 10 mg PO Q6 5 Days Qty: 20 0RF Rx Instructions: Take 4 times per day with food for 5 days to decrease pain and swelling acetaminophen 500 mg capsule 1,000 mg PO TID 30 Days Qty: 180 0RF Rx Instructions: Take 3 times per day to lessen pain. aspirin [Raymond Low Dose Aspirin] 81 mg tablet,delayed release (DR/EC) 81 mg PO BID 45 Days Qty: 90 0RF Rx Instructions: Take to prevent blood clots. sennosides-docusate sodium [Senokot-S] 8.6-50 mg tablet 1 tab-cap PO DAILY Qty: 14 0RF Rx Instructions: Take daily to prevent constipation aspirin [Adult Low Dose Aspirin] 81 mg tablet,delayed release (DR/EC) 81 mg PO QAM (DME) t:slim X2 Basal-IQ Insulin Hospice [facility] Consultant Misc See Rx Instructions .Route Rx Instructions: As directed gabapentin 100 mg Capsule 100 mg PO TID cholecalciferol (vitamin D3) [Vitamin D3] 50 mcg (2,000 unit) Capsule 50 mcg PO QAM levothyroxine 137 mcg tablet 137 mcg PO QAM montelukast 10 mg tablet 10 mg PO QAM albuterol sulfate [Ventolin HFA] 90 mcg/actuation Hfa Aerosol Inhaler 2 puff INHALATION QID PRN (Reason: Shortness Of Breath Or Wheezing) Label Comments: PRESCRIBED WHEN HAD COVID IN AUG 2021 - NO USE SINCE alendronate 70 mg tablet 70 mg PO WK Label Comments: SUNDAYS Rx Instructions: Thursday pantoprazole 40 mg tablet,delayed release (DR/EC) 40 mg PO QAM ogydbtjwew-ahhstvzxxeoez-[id number] [Fioricet] 50-300-40 mg capsule 1 cap PO Q6H PRN (Reason: headache) Qty: 7 0RF losartan 25 mg tablet 25 mg PO QAM ondansetron 4 mg Tablet,Disintegrating 4 mg PO Q6H PRN (Reason: Nausea) Discharge Orders: Discharge Order (Routine); Ordered 04/13/22 Ordered By: Philipp Hutson Admission Data Admit Date/Time: 04/11/22 08:54 Attending Provider: Philipp Hutson Admit Provider: Philipp Hutson Primary Care Provider: Yaz Pantoja Other Interventions: Discharge Summary Assessment (RN) Last Done: 04/13/22 10:36
== END 2022-04-13 14:17 | disposition home or self-care (01) ==
LOC: 3E 05:09 → ASU 05:09
DX: F17.210 Nicotine dependence, cigarettes, uncomplicated; Z96.641 Presence of right artificial hip joint; K21.9 Gastro-esophageal reflux disease without esophagitis; Z79.82 Long term (current) use of aspirin; Z79.4 Long term (current) use of insulin; E03.9 Hypothyroidism, unspecified; M16.12 Unilateral primary osteoarthritis, left hip; Z88.2 Allergy status to sulfonamides; E11.9 Type 2 diabetes mellitus without complications; I10 Essential (primary) hypertension; Z79.890 Hormone replacement therapy; I25.2 Old myocardial infarction

== ENCOUNTER 2022-06-26 21:45 | Inpatient (IN) ==
[2022-06-26] MEDS ORDERED: ACETAMINOPHEN 500 MG TAB PO STA (22:33)
[2022-06-26] MEDS ORDERED: FAMOTIDINE 20MG IV PUSH 20 MG/5 ML SYR IV STA (22:33)
[2022-06-26] MEDS ORDERED: ONDANSETRON INJ 2 MG/ML 2 ML VIAL IV STA (22:33)
[2022-06-26] MEDS ORDERED: SODIUM CHLORIDE 0.9% 1000ML 1,000 ML IV SCH (22:45)
[2022-06-26 22:50] LABS: Influenza A virus by PCR Negative (Neg); Influenza B virus by PCR Negative (Neg); RSV by PCR Negative (Neg); SARS CoV2 RNA(COVID-19)Cepheid NEGATIVE (Negative)
[2022-06-26 23:05] LABS: Hematocrit (blood only) 30.4 % (34.1-44.9); Hemoglobin 9.5 g/dl (12.0-16.0); Mean Corpuscular Hemoglobin 27.2 pg (25.0-34.0); Mean Corpuscular Hgb Conc 31.3 g/dL (32.0-36.0); Mean Corpuscular Volume 87.1 fL (80.0-100.0); Mean Platelet Volume 9.6 fL (9.4-12.3); Platelet Count 211 K/uL (130-400); RDW Coefficient of Variation 14.6 % (11.5-14.5); RDW Standard Deviation 46.4 fL (36.4-46.3); Red Blood Count 3.49 M/uL (3.93-5.22)
[2022-06-26 23:19] LABS: Appearance Urine Cloudy (Clear); Bacteria Urine Automated 4+ (Negative); Bilirubin Urine Negative (Negative); Blood Urine 1+ (Negative); Cast Urine Automated 0 /lpf (0-5); Color Urine Yellow; Epithelial Cell Urine Auto 20-30 /lpf (0-5); Glucose Urine UA Negative (Negative); Ketones Urine Trace (Negative); Leukocyte Esterase Urine 2+ (Negative); Nitrite Urine Positive (Negative); Protein Urine 1+ (Negative); Specific Gravity Urine 1.017 (1.000-1.030); Urobilinogen Urine Negative (Negative); WBC Urine Automated >30 /hpf (0-5); pH Urine 6.5 (4.5-7.5)
[2022-06-26 23:28] LABS: Basophils # (auto) 0.02 K/uL (0-0.2); Basophils % (auto) 0.1 %; Immature Granulocytes # (auto) 0.07 K/uL (0.00-0.02); Immature Granulocytes % (auto) 0.5 %; Lymphocytes # (auto) 0.49 K/uL (1.2-3.4); Lymphocytes % (auto) 3.5 %; Monocytes # (auto) 0.73 K/uL (0.24-0.82); Monocytes % (auto) 5.2 %; Neutrophils # (auto) 12.69 K/uL (1.4-6.5); Neutrophils % (auto) 90.7 %
[2022-06-26 23:37] LABS: Alanine Aminotransferase 11 U/L (7-52); Albumin Level 3.5 gm/dl (3.4-5.0); Alkaline Phosphatase 94 U/L (34-104); Anion Gap 8 (3-11); Aspartate Aminotransferase 12 U/L (13-39); BUN Creatinine Ratio 18.8 (10-20); Bilirubin Direct 0.1 mg/dl (0-0.2); Bilirubin,Total 0.5 mg/dl (0.2-1.0); Blood Urea Nitrogen 15 mg/dl (6-23); Calcium 8.7 mg/dl (8.5-10.1); Carbon Dioxide 23 mmol/L (21-32); Chloride 105 mmol/L (98-107); Est GFR (African American) 89.7 ml/min; Est GFR (Non-African American) 77.4 ml/min; Glucose 123 mg/dl (70-99(Fasting)); Magnesium 1.9 mg/dl (1.7-2.4); Potassium 3.2 mmol/L (3.5-5.1); Sodium 136 mmol/L (136-145); Total Protein 6.6 gm/dl (6.0-8.3)
[2022-06-26 23:38] LABS: Troponin I High Sensitivity 17.4 pg/ml (0-14)
[2022-06-27] MEDS ORDERED: OPTIRAY 350 100ml IV ONE (00:08)
[2022-06-27] MEDS ORDERED: PIPERACILLIN/TAZOBACTAM 4.5 GM/120 ML BAG IV ONE (00:15)
[2022-06-27] MEDS ORDERED: SODIUM CHLORIDE 0.9% 1000ML 1,000 ML IV ONE (00:15)
--- NOTE | 2022-06-27 00:15 | Emergency Department Note ---
History of Present Illness General Chief complaint: Flu Like Symptoms Stated complaint: VOMIT,CHILLS,HEADACHE,DEHYDRATION,COVID NEG Time Seen by Provider: 06/26/22 22:25 History of Present Illness Maximum Pain Intensity: 9 This 67-year-old presents to the ER complaining of concerns for COVID with fever and chills and urinary symptoms Location: Generalized Quality: Febrile Severity: Moderate Duration: Past day Timing: Started yesterday Context: Patient was concerned and came in Modifying factors: better with rest; worse with activity Patient denies chest pain, neck stiffness, sore throat. Patient states she was exposed to COVID and is concerned she has COVID. She also complains of urinary symptoms with nausea and vomiting. She also complains of abdominal pain. Home Medications Medication Instructions Recorded Confirmed Type albuterol sulfate 90 mcg/actuation 2 puff inhalation QID PRN 06/27/19 06/26/22 History aerosol inhaler (Ventolin HFA) Shortness Of Breath Or Wheezing montelukast 10 mg tablet 10 mg PO QAM 06/27/19 06/26/22 History cholecalciferol (vitamin D3) 50 50 mcg PO QAM 05/21/20 06/26/22 History mcg (2,000 unit) capsule (Vitamin D3) gabapentin 100 mg capsule 100 mg PO TID 05/21/20 06/26/22 History levothyroxine 137 mcg tablet 137 mcg PO QAM 08/27/20 06/26/22 History losartan 25 mg tablet 25 mg PO QAM 09/14/21 06/26/22 History alendronate 70 mg tablet 70 mg PO WK 09/27/21 06/26/22 History pantoprazole 40 mg tablet,delayed 40 mg PO DAILYBB 09/27/21 06/26/22 History release tqrlfeqpyq-atjxtcvkiijpq-ahzlrgwd 1 cap PO Q6H PRN headache #7 caps 09/28/21 06/26/22 Rx 50 mg-300 mg-40 mg capsule (Fioricet) subcutaneous insulin pump (t:slim 11/13/21 06/26/22 History X2 Basal-IQ Insulin Pump) ondansetron HCl 4 mg tablet 4 mg PO Q6 PRN nausea #20 tabs 04/09/22 06/26/22 Rx Novolog Flexpen U-100 Insulin 100 See Rx Instructions subcut TID #30 05/05/22 06/26/22 Rx unit/mL (3 mL) subcutaneous mL (insulin aspart U-100) OneTouch Ultra Test (blood sugar #100 ea 05/05/22 06/26/22 Rx diagnostic) acetaminophen 500 mg capsule 1,000 mg PO TID PRN Pain 06/26/22 06/26/22 History aspirin 81 mg tablet,delayed 81 mg PO DAILY 06/26/22 06/26/22 History release (Raymond Low Dose Aspirin) insulin aspart U-100 100 unit/mL 0 unit continuous subcutaneous 06/26/22 06/26/22 History subcutaneous solution (Novolog infusion CONTINOUS U-100 Insulin aspart) Allergies Allergy/AdvReac Type Severity Reaction Status Date / Time Sulfa (Sulfonamide Allergy Unknown Hives Verified 06/26/22 23:22 Antibiotics) Past Med/Surg History Medical History Age related osteoporosis Possible, prescribed Fosomax Anemia Bilateral hip joint arthritis CAD (coronary artery disease) Moderate non-obstructive CAD per 2019 cardiac cath Diabetic retinopathy associated with type 1 diabetes mellitus Per records, pt denies Elevated LFTs Encounter for pre-operative examination Gastroparesis History of COVID-19 08/2021 Hyperlipidemia Hypertension Hypothyroidism RLS (restless legs syndrome) Sphincter of Oddi dysfunction Type 1 diabetes mellitus, uncontrolled + insulin pump Surgical History History of biliary stent insertion Since removed History of cholecystectomy History of total left knee replacement Hx of cardiac cath 2019 > no stents S/P ERCP ERCP (09/27/21): Grade 1 view, MAC#3, ETT 7.[address] [facility]. No issues noted per post-op anesthesia progress note. Status post right hip replacement Right DEE (12/22/20): SAB- L3 at [facility]. No issues noted per post-op anesthesia progress note. Family History Mother Family history of diabetes mellitus Other No significant family history Social History Smoking Status: Current every day smoker Tobacco Type: Cigarettes Cigarettes Per Day: .5-1 PPD (Intermittent tobacco use x 10+ years); Second Hand Exposure: Yes; Hx Alcohol Use: No Hx Substance Use: No Preferred Language: Armenian Communication Ability: Effective Visual Impairment: No Limitations Hearing Ability: Normal Test Driller Required: No Beliefs That Will Affect Care: None marital status: / Current Living Situation: Family Current Living Situation Comment: SON AND DAUGHTER IN LAW Feels Safe at Home: Yes Assistive Devices: Walker Review of Systems A total of 10 systems reviewed and were otherwise negative Physical Exam Vital Signs Vital Signs - 24 hr 06/26/22 21:53 06/26/22 23:06 06/26/22 23:06 Temperature 38.3 C H 38.6 C H Temperature Source Temporal Artery Scan Oral Pulse Rate 121 H Pulse Rate [Finger] 84 Respiratory Rate 20 22 Respiratory Effort / Characteristics Non-Labored Spontaneous Respiratory Depth Normal Blood Pressure 128/70 Blood Pressure [Right Arm] 122/65 Blood Pressure Mean 89 Blood Pressure Mean [Right Arm] 84 Pulse Oximetry 96 95 95 Oxygen Delivery Method Room Air Room Air Sepsis New/Unexplained Change in Mental Status N/A Sepsis Action Taken by Nursing No Action Required 06/27/22 00:34 Temperature 38.2 C H Temperature Source Oral Pulse Rate Pulse Rate [Finger] 86 Respiratory Rate 22 Respiratory Effort / Characteristics Respiratory Depth Blood Pressure Blood Pressure [Right Arm] 111/61 Blood Pressure Mean Blood Pressure Mean [Right Arm] 77 Pulse Oximetry 99 Oxygen Delivery Method Room Air Sepsis New/Unexplained Change in Mental Status Sepsis Action Taken by Nursing VITALS: Vitals are noted on the nurse's note and reviewed by myself. Vital signs febrile. GENERAL: Pleasant female who appears moderately ill SKIN: The skin was without rashes, erythema, edema, or bruising. There is no tenting of the skin. Capillary reflex less than 2 seconds. HEAD: Normocephalic atraumatic. EARS: External auditory canals clear, tympanic membranes pearly goldstein without erythema or effusion bilaterally. EYES: Pupils equal round and reactive to light and accommodation. Conjunctivae without injection, sclerae without icterus. Extraocular movements intact. NOSE: Patent, turbinates without inflammation or discharge. No sinus tenderness. MOUTH: Mucous membranes dry pharynx without erythema or exudate. Uvula midline. Airway patent. Tongue does not deviate. NECK: Supple without nuchal rigidity. No lymphadenopathy. No thyromegaly. Cervical spine is nontender. No JVD. HEART: Regular rate and rhythm LUNGS: Clear to auscultation bilaterally without wheezes, rales or rhonchi. No retractions or accessory muscle use. ABDOMEN: Positive bowel sounds x 4. Normal tympanic percussion. Soft, diffuse tenderness, without masses or organomegaly. Pham sign negative. No guarding or rebound tenderness. No CVA tenderness MUSCULOSKELETAL: No muscle atrophy, erythema, or edema noted. NEURO: Patient was alert and oriented to person place and time. Normal sensation to light and sharp touch. No focal neurological deficits. Course Administered Medications Discontinued Medications Acetaminophen (Acetaminophen 500 Mg Tab) 1,000 mg PO NOW STA Stop: 06/26/22 22:34 Last Admin: 06/26/22 22:55 Dose: 1,000 mg Documented By: GERRI Sodium Chloride (Nss 1000ml) 1,000 mls @ 999 mls/hr IV .Q1H1M LIBERTY Stop: 06/26/22 23:45 Last Admin: 06/26/22 22:55 Dose: 999 mls/hr Documented By: GERRI Famotidine (Pepcid 20mg Iv Push) 20 mg in 5 mls @ 2.5 mls/min IV NOW STA Stop: 06/26/22 22:34 Last Admin: 06/26/22 22:55 Dose: 2.5 mls/min Documented By: GERRI Piperacillin Sod/Tazobactam Sod (Zosyn) 4.5 gm in 120 mls @ 240 mls/hr IV NOW ONE Stop: 06/27/22 00:44 Last Admin: 06/27/22 00:29 Dose: Not Given Documented By: ANTONIETA Ioversol (Optiray 350 100ml) 100 ml IV ONCE ONE Stop: 06/27/22 00:09 Last Admin: 06/27/22 00:08 Dose: 87 ml Documented By: HERIBERTO Ondansetron HCl (Ondansetron Inj 2 Mg/Ml 2 Ml Vial) 4 mg IV NOW STA Stop: 06/26/22 22:34 Last Admin: 06/26/22 22:55 Dose: 4 mg Documented By: GERRI Medical Decision Making Medical Records Attestation: I reviewed the patient's medical records. Home Medications Current Medication List: was personally reviewed by me Laboratory Data Attestation: I reviewed the patient's lab results. Result diagrams: 06/26/22 22:54 06/26/22 22:54 Lab Results 06/26/22 06/26/22 06/26/22 Range/Units 21:56 22:54 22:54 WBC 14.00 H (4.8-10.8) K/ul RBC 3.49 L (3.93-5.22) M/uL Hgb 9.5 L (12.0-16.0) g/dl Hct 30.4 L (34.1-44.9) % MCV 87.1 (80.0-100.0) fL MCH 27.2 (25.0-34.0) pg MCHC 31.3 L (32.0-36.0) g/dL RDW Std Deviation 46.4 H (36.4-46.3) fL RDW Coeff of Kandy 14.6 H (11.5-14.5) % Plt Count 211 (130-400) K/uL MPV 9.6 (9.4-12.3) fL Immature Gran % (Auto) 0.5 % Neut % (Auto) 90.7 % Lymph % (Auto) 3.5 % [place] % (Auto) 5.2 % Eos % (Auto) 0.0 % Baso % (Auto) 0.1 % Neut # (Auto) 12.69 H (1.4-6.5) K/uL Lymph # (Auto) 0.49 L (1.2-3.4) K/uL [place] # (Auto) 0.73 (0.24-0.82) K/uL Eos # (Auto) 0.00 (0-0.50) K/uL Baso # (Auto) 0.02 (0-0.2) K/uL Immature Gran # (Auto) 0.07 H (0.00-0.02) K/uL Sodium 136 (136-145) mmol/L Potassium 3.2 L (3.5-5.1) mmol/L Chloride 105 (98-107) mmol/L Carbon Dioxide 23 (21-32) mmol/L Anion Gap 8 (3-11) BUN 15 (6-23) mg/dl Creatinine 0.80 (0.6-1.2) mg/dl Est Cr Clr Drug Dosing Not Reportable Est GFR ( Amer) 89.7 ml/min Est GFR (Non-Af Amer) 77.4 ml/min BUN/Creatinine Ratio 18.8 (10-20) Glucose 123 H (70-99(Fasting)) mg/dl Lactate (0.4-2.0) mmol/L Calcium 8.7 (8.5-10.1) mg/dl Magnesium 1.9 (1.7-2.4) mg/dl Total Bilirubin 0.5 (0.2-1.0) mg/dl Direct Bilirubin 0.1 (0-0.2) mg/dl AST 12 L (13-39) U/L ALT 11 (7-52) U/L Alkaline Phosphatase 94 (34-104) U/L Troponin I High Sens 17.4 H (0-14) pg/ml Total Protein 6.6 (6.0-8.3) gm/dl Albumin 3.5 (3.4-5.0) gm/dl Procalcitonin (0-0.5) ng/ml Urine Color Urine Appearance (Clear) Urine pH (4.5-7.5) Ur Specific [place] (1.000-1.030) Urine Protein (Negative) Urine Glucose (UA) (Negative) Urine Ketones (Negative) Urine Blood (Negative) Urine Nitrite (Negative) Urine Bilirubin (Negative) Urine Urobilinogen (Negative) Ur Leukocyte Esterase (Negative) Urine WBC (Auto) (0-5) /hpf Urine RBC (Auto) (0-4) /hpf U Hyaline Cast (Auto) (0-5) /lpf U Epithel Cells (Auto) (0-5) /lpf Urine Bacteria (Auto) (Negative) SARS-CoV-2 (PCR) NEGATIVE (Negative) Influenza Type A (PCR) Negative (Neg) Influenza Type B (PCR) Negative (Neg) RSV (RT-PCR) Negative (Neg) 06/26/22 06/26/22 06/26/22 Range/Units 22:54 22:54 22:57 WBC (4.8-10.8) K/ul RBC (3.93-5.22) M/uL Hgb (12.0-16.0) g/dl Hct (34.1-44.9) % MCV (80.0-100.0) fL MCH (25.0-34.0) pg MCHC (32.0-36.0) g/dL RDW Std Deviation (36.4-46.3) fL RDW Coeff of Kandy (11.5-14.5) % Plt Count (130-400) K/uL MPV (9.4-12.3) fL Immature Gran % (Auto) % Neut % (Auto) % Lymph % (Auto) % [place] % (Auto) % Eos % (Auto) % Baso % (Auto) % Neut # (Auto) (1.4-6.5) K/uL Lymph # (Auto) (1.2-3.4) K/uL [place] # (Auto) (0.24-0.82) K/uL Eos # (Auto) (0-0.50) K/uL Baso # (Auto) (0-0.2) K/uL Immature Gran # (Auto) (0.00-0.02) K/uL Sodium (136-145) mmol/L Potassium (3.5-5.1) mmol/L Chloride (98-107) mmol/L Carbon Dioxide (21-32) mmol/L Anion Gap (3-11) BUN (6-23) mg/dl Creatinine (0.6-1.2) mg/dl Est Cr Clr Drug Dosing Est GFR ( Amer) ml/min Est GFR (Non-Af Amer) ml/min BUN/Creatinine Ratio (10-20) Glucose (70-99(Fasting)) mg/dl Lactate 0.7 (0.4-2.0) mmol/L Calcium (8.5-10.1) mg/dl Magnesium (1.7-2.4) mg/dl Total Bilirubin (0.2-1.0) mg/dl Direct Bilirubin (0-0.2) mg/dl AST (13-39) U/L ALT (7-52) U/L Alkaline Phosphatase (34-104) U/L Troponin I High Sens (0-14) pg/ml Total Protein (6.0-8.3) gm/dl Albumin (3.4-5.0) gm/dl Procalcitonin 6.15 H (0-0.5) ng/ml Urine Color Yellow Urine Appearance Cloudy A (Clear) Urine pH 6.5 (4.5-7.5) Ur Specific [place] 1.017 (1.000-1.030) Urine Protein 1+ H (Negative) Urine Glucose (UA) Negative (Negative) Urine Ketones Trace H (Negative) Urine Blood 1+ H (Negative) Urine Nitrite Positive A (Negative) Urine Bilirubin Negative (Negative) Urine Urobilinogen Negative (Negative) Ur Leukocyte Esterase 2+ H (Negative) Urine WBC (Auto) >30 H (0-5) /hpf Urine RBC (Auto) 5-10 H (0-4) /hpf U Hyaline Cast (Auto) 0 (0-5) /lpf U Epithel Cells (Auto) 20-30 H (0-5) /lpf Urine Bacteria (Auto) 4+ H (Negative) SARS-CoV-2 (PCR) (Negative) Influenza Type A (PCR) (Neg) Influenza Type B (PCR) (Neg) RSV (RT-PCR) (Neg) Imaging Data Attestation: I personally reviewed and interpreted this imaging study as follows: MDM Narrative Prior records/ancillary studies reviewed. Triage Nursing notes reviewed. Additional history obtained from nurse. The patient's history was concerning for concerns for COVID fever and urinary symptoms. Differential diagnosis: Etiologies such as sepsis, UTI, pneumonia, metabolic, electrolyte abnormalities, cardiac sources, intracerebral event, toxicologic, neurologic, as well as others were entertained. Physical examination: As above. Pertinent findings were febrile. Vital signs reviewed and revealed febrile. ER treatment provided: IV fluid resuscitation with Normal saline solution, IV fluids, Zofran Tylenol and Zosyn Blood and urine cultures [address], [place] [address] / Director: Delvin Clancy M.D. Clinical Laboratory Report Name: THUAN ANGEL Acct: [id number] Status: [facility] : 1955 [facility] [place] Date: 09/07/19 Age: 67 Sex: F Dis Date: Loc: Emergency Department Spec: [id number] Collected: 09/07/19 Received: 09/07/[address]: ABDIFATAH,ED Copy To: Isreal Josue M.D. Source: Urine,Clean Catch OV Order: Ordered: Urine Culture Procedure Result Verified Site Urine Culture Final 09/09/19-1030 Organism 1 Escherichia coli ESBL [place] Count >100,000 CFU/ml Sens Sensitivities to Follow Sensitivity results indicate an organism with an Extended Spectrum Beta Lactamase. This is considered a Multidrug Resistant Organism. Phoned to DILMA TALAVERA on 09/09/19 at 0737 by Bishop Jung. Results were verbalized back. ESBL E col RX M.I.C. --- --------- Amikacin S <=16 Ampicillin R >16 Amp/Sul R >16/8 Cefazolin R >16 Cefepime R >16 Cefotaxime R >32 Cefoxitin S <=8 Ceftriaxone R >32 Cefuroxime R >16 Ciprofloxacin R >2 Ertapenem S <=1 Gentamicin S <=4 Imipenem S <=1 Levofloxacin R >4 Nitrofurantoin S <=32 Tobramycin S <=4 Trimeth/Sulfa R >2/38 Pip/Tazo S <=16 S = SENSITIVE I = INTERMEDIATE R = RESISTANT An order was placed for continuous cardiac monitoring. The monitor shows a rate of 60-1 50 with a sinus rhythm. On reassessment the patient vital signs improved. Diagnostics interpretation by me: ECG: Ordered for weakness EKG: Normal sinus, normal intervals, no acute ST-T wave changes. Impression normal sinus rhythm interpreted by myself I think arrhythmia is unlikely. EKG shows normal sinus rhythm with no interval abnormalities such as QT prolongation or WPW. There are no findings to suggest Brugada syndrome. Cardiac monitoring in the emergency department reveals no tachycardic or bradycardic dysrhythmia. Hypertrophic cardiomyopathy was considered but there are no clear historical elements pointing toward this. EKG is not suggestive. The QRS voltage is not extremely large and there are no suggestive Q waves. The labs revealed leukocytosis, urine concerning for infection and sent for culture Blood and urine cultures are pending. Elevated procalcitonin level Negative COVID Imaging studies: Chest xray revealed With no acute consolidation, pneumothorax or free air per my interpretation CT ABDOMEN & PELVIS With Contrast: Comparison to September 27, 2021. Slightly patchy enhancement pattern of the right kidney suspicious for pyelonephritis. There may also be involvement of the left kidney. No hyd ronephrosis or ureterolithiasis is seen. Mild biliary duct prominence postcholecystectomy. No choledocholithiasis is seen. The liver, spleen, pancreas, and adrenal glands are unremarkable. Bowel loops are nondilated. No acute inflammatory changes are seen involving the bowel. The abdominal aorta is mildly calcified but nondilated. The uterus has been removed. No free fluid is seen in the pelvis. Artifact from bilateral hip arthroplasties. Mild degenerative changes throughout the spine. No acute fracture or subluxation is seen. Radiologist: Cyrus Hutson MD Consultation: A consultation was placed with the hospitalist. The case was discussed and diagnostics were reviewed. The patient was evaluated in the ER for further treatment. 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 Medicine is consulted. She will be evaluated for admission. She was given IV fluids and meropenem.She was given Tylenol. She was reassessed multiple times. COVID was negative. Elevated procalcitonin. Blood cultures pending. Impression & Plan Sepsis, Acute pyelonephritis, History of ESBL E. coli infection Discharge Plan Visit Data Chief Complaint: Flu Like Symptoms Stated Complaint: VOMIT,CHILLS,HEADACHE,DEHYDRATION,COVID NEG ED Provider: Ovi Kent ED Midlevel Provider: [place] Discharge Problem: Sepsis, Acute pyelonephritis, History of ESBL E. coli infection Patient Disposition: Admitted As Inpatient Condition: Fair Forms Stand Alone Forms: Virtual Emergency Department, Important Visit Information Prescriptions Prescriptions: No Action ondansetron HCl 4 mg tablet 4 mg PO Q6 PRN (Reason: nausea) Qty: 20 1RF (DME) OneTouch Ultra Test Strip See Rx Instructions .ROUTE .MEDSUPPLY Qty: 100 3RF Rx Instructions: test 1 time daily insulin aspart U-100 [Novolog Flexpen U-100 Insulin] 100 unit/mL (3 mL) insulin pen See Rx Instructions subcut TID Qty: 30 2RF Rx Instructions: in case of pump failure TDD 70 units subcut three times a day; (VERIFIED WITH PT PAT CALL 03/10/22) (DME) t:slim X2 Basal-IQ Insulin [place] Misc See Rx Instructions .Route Rx Instructions: As directed gabapentin 100 mg Capsule 100 mg PO TID cholecalciferol (vitamin D3) [Vitamin D3] 50 mcg (2,000 unit) Capsule 50 mcg PO QAM levothyroxine 137 mcg tablet 137 mcg PO QAM montelukast 10 mg tablet 10 mg PO QAM albuterol sulfate [Ventolin HFA] 90 mcg/actuation Hfa Aerosol Inhaler 2 puff INHALATION QID PRN (Reason: Shortness Of Breath Or Wheezing) Label Comments: PRESCRIBED WHEN HAD COVID IN AUG 2021 - NO USE SINCE alendronate 70 mg tablet 70 mg PO WK Label Comments: SUNDAYS Rx Instructions: Thursday pantoprazole 40 mg tablet,delayed release (DR/EC) 40 mg PO DAILYBB [id number] [Fioricet] 50-300-40 mg capsule 1 cap PO Q6H PRN (Reason: headache) Qty: 7 0RF losartan 25 mg tablet 25 mg PO QAM insulin aspart U-100 [Novolog U-100 Insulin aspart] 100 unit/mL solution 0 unit continuous subcutaneous infusion CONTINOUS aspirin [Raymond Low Dose Aspirin] 81 mg tablet,delayed release (DR/EC) 81 mg PO DAILY acetaminophen 500 mg capsule 1,000 mg PO TID PRN (Reason: Pain) Referrals Referrals: Yaz Pantoja CRNP [Primary Care Provider] -
[2022-06-27] MEDS ORDERED: MEROPENEM 1,000 MG in SYRINGE 0 ML IV STA (00:21)
[2022-06-27] MEDS ORDERED: MEROPENEM 1,000 MG in SYRINGE 0 ML IV ONE (00:21)
--- NOTE | 2022-06-27 00:49 | History & Physical Report ---
Date of Service June 27, 2022 Assessment & Plan (1) Pyelonephritis: Plan: 67yo female with T1DM presents with a two-day history of fever (Tmax 102), headache, cough, pain with urination, urinary frequency, nausea, vomiting, and body aches. Sepsis suspected secondary to pyelonephritis Patient with a two-day history of urinary and generalized symptoms Vitals on arrival notable for fever and tachycardia UA notable for 1+ protein, 1+ blood, positive nitrites, 2+ leuk esterase, WBC>30, 4+ bacteria Urine and blood cultures pending Meropenem administered in ED; continue this until urine culture results, given history of ESBL UTI NSS @ 125mL/hr + KCl 20mEq riders ordered (x2 bags) APAP 1000mg IV q8h scheduled Zofran IV prn nausea Trend CBC, BMP T1DM HbA1c 8.2% (03/18/22), repeat value ordered Hold home insulin pump Reduced home basal insulin dose from 15u daily to 5u bid Continue BSG checks, sliding-scale insulin, hypoglycemic protocol Mild hypokalemia Potassium on admission 3.2 Added KCl 20mEq riders to IVF Trend daily BMP Elevated troponin On admission, hsTroponin mildly elevated to 17.4, repeat value pending EKG: NSR, no overt sign of ischemic change Patient without CP at this time HTN: continue home regimen Hypothyroidism: continue home regimen GERD: continue home regimen FEN: T1DM diet, NSS @ 125mL/hr + KCl 20mEq (x2 bags ordered) Code status: DNR/DNI DVT ppx: SCDs PT/OT: ordered Dispo: med/surg (2) Uncontrolled type 1 diabetes mellitus with hyperglycemia: (3) Abdominal pain: (4) Fever: (5) Nausea & vomiting: History of Present Illness Primary Care Provider: Yaz Pantoja 67yo female with T1DM presents with a two-day history of fever (Tmax 102), headache, cough, pain with urination, urinary frequency, nausea, vomiting, and body aches. Patient took a home covid test after an exposure at work, which was negative. Patient denies vision changes, CP, palpitations, SOB, edema, hematochezia, melena, numbness, tingling, weakness, or other symptoms. Denies and recent travel. Upon arrival, vitals were notable for fever (38.6) and tachycardia (121); BP controlled, no tachypnea, patient afebrile, spO2 adequate on room air. Initial labs were notable for leukocytosis (14.0), anemia (9.5), mild hypokalemia (3.2), and elevated procalcitonin (6.15); platelets wnl, no additional electrolyte abnormalities, creatinine not elevated, LFTs wnl, Tbili not elevated, covid PCR negative, influenza and RSV PCR negative. UA notable for 1+ protein, 1+ blood, positive nitrites, 2+ leuk esterase, WBC>30, 4+ bacteria In the ED, patient received NSS 1L bolus (x1), acetaminophen, zofran, and famotidine. EKG: NSR, no overt ischemic change Imaging: CT abdomen/pelvis: patchy enhancement of right kidney suspicious for pyelonephritis, with possible involvement of left kidney; no hydronephrosis or ureterolithiasis Surrogate decision-maker in case of an emergency: anjel Patel (cell: [phone]) Allergies Allergy/AdvReac Type Severity Reaction Status Date / Time Sulfa (Sulfonamide Allergy Unknown Hives Verified 06/26/22 23:22 Antibiotics) Home Medications Medication Instructions Recorded Confirmed Type albuterol sulfate 90 mcg/actuation 2 puff inhalation QID PRN 06/27/19 06/26/22 History aerosol inhaler (Ventolin HFA) Shortness Of Breath Or Wheezing montelukast 10 mg tablet 10 mg PO QAM 06/27/19 06/26/22 History cholecalciferol (vitamin D3) 50 50 mcg PO QAM 05/21/20 06/26/22 History mcg (2,000 unit) capsule (Vitamin D3) gabapentin 100 mg capsule 100 mg PO TID 05/21/20 06/26/22 History levothyroxine 137 mcg tablet 137 mcg PO QAM 08/27/20 06/26/22 History losartan 25 mg tablet 25 mg PO QAM 09/14/21 06/26/22 History alendronate 70 mg tablet 70 mg PO WK 09/27/21 06/26/22 History pantoprazole 40 mg tablet,delayed 40 mg PO DAILYBB 09/27/21 06/26/22 History release [id number] 1 cap PO Q6H PRN headache #7 caps 09/28/21 06/26/22 Rx 50 mg-300 mg-40 mg capsule (Fioricet) subcutaneous insulin pump (t:slim 11/13/21 06/26/22 History X2 Basal-IQ Insulin Pump) ondansetron HCl 4 mg tablet 4 mg PO Q6 PRN nausea #20 tabs 04/09/22 06/26/22 Rx Novolog Flexpen U-100 Insulin 100 See Rx Instructions subcut TID #30 05/05/22 06/26/22 Rx unit/mL (3 mL) subcutaneous mL (insulin aspart U-100) OneTouch Ultra Test (blood sugar #100 ea 05/05/22 06/26/22 Rx diagnostic) acetaminophen 500 mg capsule 1,000 mg PO TID PRN Pain 06/26/22 06/26/22 History aspirin 81 mg tablet,delayed 81 mg PO DAILY 06/26/22 06/26/22 History release (Raymond Low Dose Aspirin) insulin aspart U-100 100 unit/mL 0 unit continuous subcutaneous 06/26/22 06/26/22 History subcutaneous solution (Novolog infusion CONTINOUS U-100 Insulin aspart) Past Med/Surg History Medical History Age related osteoporosis Possible, prescribed Fosomax Anemia Bilateral hip joint arthritis CAD (coronary artery disease) Moderate non-obstructive CAD per 2019 cardiac cath Diabetic retinopathy associated with type 1 diabetes mellitus Per records, pt denies Elevated LFTs Encounter for pre-operative examination Gastroparesis History of COVID-19 08/2021 Hyperlipidemia Hypertension Hypothyroidism RLS (restless legs syndrome) Sphincter of Oddi dysfunction Type 1 diabetes mellitus, uncontrolled + insulin pump Surgical History History of biliary stent insertion Since removed History of cholecystectomy History of total left knee replacement Hx of cardiac cath 2018 > no stents S/P ERCP ERCP (09/27/21): Grade 1 view, MAC#3, ETT 7.[address] [facility]. No issues noted per post-op anesthesia progress note. Status post right hip replacement Right DEE (12/22/20): SAB- L3 at [facility]. No issues noted per post-op anesthesia progress note. Family History Mother Family history of diabetes mellitus Other No significant family history Social History Smoking Status: Current every day smoker Tobacco Type: Cigarettes Cigarettes Per Day: .5-1 PPD (Intermittent tobacco use x 10+ years); Second Hand Exposure: Yes; Hx Alcohol Use: No Hx Substance Use: No Preferred Language: Bengali Communication Ability: Effective Visual Impairment: No Limitations Hearing Ability: Normal Databases Software Consultant Required: No Beliefs That Will Affect Care: None marital status: / Current Living Situation: Family Current Living Situation Comment: SON AND DAUGHTER IN LAW Feels Safe at Home: Yes Assistive Devices: Walker Review of Systems Review of Systems: All systems reviewed & are unremarkable except as noted in HPI & below Physical Exam Physical Exam: Constitutional: well-appearing, no acute distress HEENT: NCAT, no conjunctival injection CV: regular rhythm, no murmur appreciated, extremities well-perfused, no LE edema Resp: CTABL, no wheezes/rales/rhonchi appreciated, no increased work of breathing GI: soft, nondistended, mild generalized tenderness, BS normoactive MSK: no flank tenderness Skin: warm, dry, no rash appreciated Neuro: alert, oriented, no focal neurologic deficit appreciated Results & Data Results & Data ([facility]) Vital Signs (Past 12 Hours) Vital Signs Temp Pulse Pulse Resp BP BP Pulse Ox 06/27/22 00:34 38.2 C H 86 22 111/61 99 06/26/22 23:06 38.6 C H 84 22 122/65 95 06/26/22 23:06 95 06/26/22 21:53 38.3 C H 121 H 20 128/70 96 O2 Del Method 06/27/22 00:34 Room Air 06/26/22 23:06 Room Air 06/26/22 23:06 06/26/22 21:53 Room Air Laboratory Results Laboratory Results WBC 14.00 K/ul (4.8-10.8) H 06/26/22 22:54 RBC 3.49 M/uL (3.93-5.22) L 06/26/22 22:54 Hgb 9.5 g/dl (12.0-16.0) L 06/26/22 22:54 Hct 30.4 % (34.1-44.9) L 06/26/22 22:54 MCV 87.1 fL (80.0-100.0) 06/26/22 22:54 MCH 27.2 pg (25.0-34.0) 06/26/22 22:54 MCHC 31.3 g/dL (32.0-36.0) L 06/26/22 22:54 RDW Std Deviation 46.4 fL (36.4-46.3) H 06/26/22 22:54 RDW Coeff of Kandy 14.6 % (11.5-14.5) H 06/26/22 22:54 Plt Count 211 K/uL (130-400) 06/26/22 22:54 MPV 9.6 fL (9.4-12.3) 06/26/22 22:54 Immature Gran % (Auto) 0.5 % 06/26/22 22:54 Neut % (Auto) 90.7 % 06/26/22 22:54 Lymph % (Auto) 3.5 % 06/26/22 22:54 [place] % (Auto) 5.2 % 06/26/22 22:54 Eos % (Auto) 0.0 % 06/26/22 22:54 Baso % (Auto) 0.1 % 06/26/22 22:54 Neut # (Auto) 12.69 K/uL (1.4-6.5) H 06/26/22 22:54 Lymph # (Auto) 0.49 K/uL (1.2-3.4) L 06/26/22 22:54 [place] # (Auto) 0.73 K/uL (0.24-0.82) 06/26/22 22:54 Eos # (Auto) 0.00 K/uL (0-0.50) 06/26/22 22:54 Baso # (Auto) 0.02 K/uL (0-0.2) 06/26/22 22:54 Immature Gran # (Auto) 0.07 K/uL (0.00-0.02) H 06/26/22 22:54 Sodium 136 mmol/L (136-145) 06/26/22 22:54 Potassium 3.2 mmol/L (3.5-5.1) L 06/26/22 22:54 Chloride 105 mmol/L (98-107) 06/26/22 22:54 Carbon Dioxide 23 mmol/L (21-32) 06/26/22 22:54 Anion Gap 8 (3-11) 06/26/22 22:54 BUN 15 mg/dl (6-23) 06/26/22 22:54 Creatinine 0.80 mg/dl (0.6-1.2) 06/26/22 22:54 Est Cr Clr Drug Dosing Not Reportable 06/26/22 22:54 Est GFR ( Amer) 89.7 ml/min 06/26/22 22:54 Est GFR (Non-Af Amer) 77.4 ml/min 06/26/22 22:54 BUN/Creatinine Ratio 18.8 (10-20) 06/26/22 22:54 Glucose 123 mg/dl (70-99(Fasting)) H 06/26/22 22:54 POC Glucose 107 mg/dl (70-99) H 06/27/22 01:38 Lactate 0.7 mmol/L (0.4-2.0) 06/26/22 22:54 Calcium 8.7 mg/dl (8.5-10.1) 06/26/22 22:54 Magnesium 1.9 mg/dl (1.7-2.4) 06/26/22 22:54 Total Bilirubin 0.5 mg/dl (0.2-1.0) 06/26/22 22:54 Direct Bilirubin 0.1 mg/dl (0-0.2) 06/26/22 22:54 AST 12 U/L (13-39) L 06/26/22 22:54 ALT 11 U/L (7-52) 06/26/22 22:54 Alkaline Phosphatase 94 U/L (34-104) 06/26/22 22:54 Troponin I High Sens 15.1 pg/ml (0-14) H 06/27/22 01:26 Total Protein 6.6 gm/dl (6.0-8.3) 06/26/22 22:54 Albumin 3.5 gm/dl (3.4-5.0) 06/26/22 22:54 Procalcitonin 6.15 ng/ml (0-0.5) H 06/26/22 22:54 Urine Color Yellow 06/26/22 22:57 Urine Appearance Cloudy (Clear) A 06/26/22 22:57 Urine pH 6.5 (4.5-7.5) 06/26/22 22:57 Ur Specific [place] 1.017 (1.000-1.030) 06/26/22 22:57 Urine Protein 1+ (Negative) H 06/26/22 22:57 Urine Glucose (UA) Negative (Negative) 06/26/22 22:57 Urine Ketones Trace (Negative) H 06/26/22 22:57 Urine Blood 1+ (Negative) H 06/26/22 22:57 Urine Nitrite Positive (Negative) A 06/26/22 22:57 Urine Bilirubin Negative (Negative) 06/26/22 22:57 Urine Urobilinogen Negative (Negative) 06/26/22 22:57 Ur Leukocyte Esterase 2+ (Negative) H 06/26/22 22:57 Urine WBC (Auto) >30 /hpf (0-5) H 06/26/22 22:57 Urine RBC (Auto) 5-10 /hpf (0-4) H 06/26/22 22:57 U Hyaline Cast (Auto) 0 /lpf (0-5) 06/26/22 22:57 U Epithel Cells (Auto) 20-30 /lpf (0-5) H 06/26/22 22:57 Urine Bacteria (Auto) 4+ (Negative) H 06/26/22 22:57 SARS-CoV-2 (PCR) NEGATIVE (Negative) 06/26/22 21:56 Influenza Type A (PCR) Negative (Neg) 06/26/22 21:56 Influenza Type B (PCR) Negative (Neg) 06/26/22 21:56 RSV (RT-PCR) Negative (Neg) 06/26/22 21:56 Supervising Physician Co-Signing Physician Notes Patient seen and examined, chart reviewed, case discussed with Dr. Merchant and I agree with the assessment and plan as above. In brief, patient is a 67yo female with DM-I presenting with 2-3 days of fever, dysuria, malaise. Also complaining of significant pain in her left hip - has had arthroplasty performed in March, no fall or instability. On exam she is ill in appearance, oriented x 4 and appropriate +S1/S2 regular Lungs CTA Abd tender in the lower abdomen with no rebound/guarding or peritonitis Ext warm, well perfused, no clubbing/cyanosis or edema Labs and images reviewed Assessment/Plan Sepsis most likely secondary to urinary source, pyelonephritis. History of ESBL UTI in the past -Meropenem -Follow cultures -Tylenol scheduled, Zofran PRN Hip pain -check X-ray Electrolyte repletion as above Trend troponin. Patient denies chest pain. No ischemic changes on EKG Remainder as above Resident Activity Tracking Resident Involvement: Resident Care Provided and Architectural Technician Coverage Note Care Provided: Adult Hospital Medicine (1) Nausea & vomiting Vomiting type: unspecified Qualified Code(s): R11.2 - Nausea with vomiting, unspecified (2) Abdominal pain Abdominal location: right upper quadrant Qualified Code(s): R10.11 - Right upper quadrant pain
[2022-06-27] MEDS ORDERED: CARBOHYDRATES FOR HYPOGLYCEMIA PO PRN (01:09)
[2022-06-27] MEDS ORDERED: GLUCOSE 10 TAB/TUBE PO PRN (01:09)
[2022-06-27] MEDS ORDERED: DEXTROSE 50% 50 ML SYRINGE IV PRN (01:09)
[2022-06-27] MEDS ORDERED: GLUCOSE 40% GEL 15 GM TUBE PO PRN (01:09)
[2022-06-27] MEDS ORDERED: GLUCAGON FOR INJ 1 MG VIAL SQ PRN (01:09)
[2022-06-27] MEDS ORDERED: MELATONIN 3 MG TAB PO PRN (01:09)
[2022-06-27] MEDS ORDERED: ALBUTEROL HFA 8 GM INHALER INH PRN (01:19)
--- NOTE | 2022-06-27 02:25 | Billing Data ---
Date of Service June 27, 2022 Coding Level of Care Code INT OBSERVATION CARE 50M LVL 2
[2022-06-27] MEDS ORDERED: MoRPHine SULFATE 2 MG/ML CARP IV PRN (03:09)
[2022-06-27] MEDS: NSS + 20MEQ KCL 20 MEQ/1,000 ML BAG IV SCH ×2 (03:46→13:44)
[2022-06-27] MEDS: ONDANSETRON INJ 2 MG/ML 2 ML VIAL IV PRN ×3 (03:56→22:10)
[2022-06-27] MEDS: LEVOTHYROXINE SODIUM 137 MCG TABLET PO SCH (06:35)
[2022-06-27] MEDS: PANTOprazole 40 MG TAB PO SCH (06:35)
[2022-06-27] MEDS ORDERED: ACETAMINOPHEN 1000 MG/100 ML IV IV SCH (07:00)
[2022-06-27] MEDS ORDERED: INSULIN ASPART PER UNIT SC SCH (07:30)
--- NOTE | 2022-06-27 07:38 | CT Scan Report ---
ABDOMEN AND PELVIS CT WITH IV CONTRAST CT DOSE: 341.34 mGy.cm HISTORY: Vomiting. fever, severe generalized abdominal pain TECHNIQUE: Multiaxial CT images of the abdomen and pelvis were performed following the use of intrave nous contrast. A dose lowering technique was utilized adhering to the principles of ALARA. COMPARISON STUDY: Abdomen and pelvis CT 10/25/2021. FINDINGS: Mild dependent changes seen within the lung bases. No fractures within the visualized osseo us structures. There are few subcentimeter hypodense lesions within the liver which remain stable. Th ere are few punctate calcified granulomas within the liver and spleen. Prior cholecystectomy. Common bile duct dilatation remains unchanged. The pancreas remains atrophic. The adrenal glands are unremar kable. Mild heterogeneous opacification of the bilateral kidneys. This is new from the prior study an d favors a pyelonephritis. There is also mild urothelial thickening within the bilateral renal collec ting systems and ureters. Mild bladder wall thickening suggested but not well visualized due to the m etallic artifact from the bilateral total hip arthroplasties. There is mild pelvic floor collapse. Th e uterus appears surgically absent. Colonic diverticulosis. No evidence for acute diverticulitis. No definite bowel wall thickening or obstruction. The main portal vein is patent. There is a mildly ecta tic abdominal aorta measuring up to 2.3 cm in diameter. No retroperitoneal lymphadenopathy. IMPRESSION: 1. Heterogeneous opacification of the bilateral kidneys likely representing a pyelonephritis. 2. There is associated urothelial thickening of the bilateral renal collecting systems/ureters and mi ld bladder wall thickening. This suggests an associated pyelitis/cystitis. 3. No bowel wall thickening or obstruction. 4. Additional findings as described above. ACT 112: Negative or not required by law. Electronically signed by: Ashish Vigil M.D. 06/27/2022 7:36 AM
[2022-06-27] MEDS: ACETAMINOPHEN 1,000 MG/100 ML VIAL IV SCH ×3 (07:57→22:09)
--- NOTE | 2022-06-27 08:29 | XRay Report ---
XR chest 1V portable HISTORY: 67 years-old Female Sepsis acute sepsis COMPARISON: CT abdomen and pelvis 06/26/2022, chest radiograph 09/14/2021 TECHNIQUE: AP view of the chest FINDINGS: Cardiomediastinal and hilar silhouettes are within normal limits. There is no pneumothorax, pleural e ffusion, airspace consolidation or overt pulmonary edema. Bones of the chest appear grossly intact. C holecystectomy. Degenerative changes of the shoulders and spine. IMPRESSION: No acute process. ACT 112: Negative or not required by law. The above report was generated using voice recognition software. It may contain grammatical, syntax o r spelling errors. Electronically signed by: Jake Capellan M.D. 06/27/2022 8:28 AM
[2022-06-27 08:44] LABS: Hematocrit (blood only) 26.8 % (34.1-44.9); Hemoglobin 8.7 g/dl (12.0-16.0); Mean Corpuscular Hemoglobin 27.8 pg (25.0-34.0); Mean Corpuscular Hgb Conc 32.5 g/dL (32.0-36.0); Mean Corpuscular Volume 85.6 fL (80.0-100.0); Mean Platelet Volume 10.5 fL (9.4-12.3); Platelet Count 191 K/uL (130-400); RDW Coefficient of Variation 14.6 % (11.5-14.5); RDW Standard Deviation 46.3 fL (36.4-46.3); Red Blood Count 3.13 M/uL (3.93-5.22)
[2022-06-27] MEDS ORDERED: LANTUS PER UNIT CHARGE SQ SCH (09:00)
[2022-06-27 09:05] LABS: BUN Creatinine Ratio 15.1 (10-20); Creatinine Clr Calc Pharmacy 74.5 ml/min; Est GFR (African American) 100.2 ml/min; Est GFR (Non-African American) 86.4 ml/min; Magnesium 1.9 mg/dl (1.7-2.4); Potassium 3.4 mmol/L (3.5-5.1)
--- NOTE | 2022-06-27 09:09 | Hospitalist Progress Note ---
Date of Service June 27, 2022 Assessment & Plan (1) Pyelonephritis: Plan: 67yo female with T1DM presents with a two-day history of fever (Tmax 102), headache, cough, pain with urination, urinary frequency, nausea, vomiting, and body aches. SIRS secondary to pyelonephritis - Patient with a two-day history of urinary and generalized symptoms - Vitals on arrival notable for fever and tachycardia - UA notable for 1+ protein, 1+ blood, positive nitrites, 2+ leuk esterase, WBC>30, 4+ bacteria - Urine and blood cultures pending. Hx of ESBL with E Coli in August 2019 - Meropenem to continue and await culture results - NSS @ 125mL/hr + KCl 20mEq riders ordered (x2 bags) - APAP 1000mg IV q8h scheduled - Zofran IV prn nausea - Trend CBC, BMP await urine culture and blood cultures - Blood culture preliminary + gram negative bacilli, sensitivity is pending and urine culture still pending T1DM - HbA1c 8.2% (03/18/22), repeat value ordered - Continue home insulin pump - Patient tells me that she is on basal rate of 0.61 and has been on this rate for a whle with no changes - Continue BSG checks, sliding-scale insulin, hypoglycemic protocol, also added glycemic control consult Mild hypokalemia - Potassium on admission 3.2, today 3.4 - Continue KCl 20mEq riders to IVF - Trend daily BMP Elevated troponin - On admission, hs Troponin mildly elevated to 17.4. Trending downward at 15.1 - EKG: NSR, no overt sign of ischemic change. Repeat EKG today with no change compared to yesterday - Most likely ischemic demand from acute infection Nausea and vomiting - On Zofran HTN: continue home regimen Hypothyroidism: continue home regimen GERD: continue home regimen FEN: T1DM diet, NSS @ 125mL/hr + KCl 20mEq (x2 bags ordered) Code status: DNR/DNI DVT ppx: SCDs PT/OT: ordered Dispo: med/surg (2) Uncontrolled type 1 diabetes mellitus with hyperglycemia: (3) Abdominal pain: (4) Fever: (5) Nausea & vomiting: Admission and Anticipated Discharge Date Admission Date: June 27, 2022 Subjective Attending: Dr Manuel This patient is a 67 year old female with a past medical history of Type I Diabetes on Insulin pump as outpatient, and history of ESBL E Coli bacteremia in August 2019 who presented to the ER yesterday and was admitted for pyelonephritis and possible sepsis and was started on IV Meropenem. Patient also had an elevated Troponin that is trending downward today and yesterday had EKG with no acute changes and repeat EKG today revealed no significant change was found. Patient febrile with a TMAX of 38.9. Lactate normal at 0.7 and procalcitonin elevated at 6.15 and will repeat today. Patient tells me that she is still having some nausea and vomiting and had vomited x 1 this AM. She admits that her urine dysuria, urgency and frequency are improving from yesterday. Patient Patient denies any chest pain or SOB. Review of Systems Review of Systems: All ROS negative unless stated in the HPI Physical Exam Physical Exam: Constitutional: w ell-appearing, no acute distress, la julio cesar in bed HEENT: NCAT, no conjunct ival injection CV: regular rhythm, n o murmur appreciat ed, extremities we ll-perfused, no LE edema Resp: CTABL , no wheezes/rales /rhonchi appreciat ed, no increased w ork of breathing G I: soft, nondisten ded, mild generali zed tenderness to palpation lower ab domen, BS normoact venkatesh MSK: mild CVA tenderness on righ t, tender to palpa tion right later h ip Skin: warm, dry , no rash apprecia keshav Neuro: alert, oriented, no focal neurologic defici t appreciated Results & Data Results & Data ([facility] [place]) Vital Signs (Past 12 Hours) Vital Signs Temp Pulse Pulse Resp BP BP Pulse Ox 06/27/22 08:04 06/27/22 07:39 38.9 C H 86 18 133/72 94 06/27/22 02:38 06/27/22 02:38 37.3 C 79 18 135/69 94 06/27/22 01:35 38 C H 77 22 125/61 97 06/27/22 00:34 38.2 C H 86 22 111/61 99 06/26/22 23:06 38.6 C H 84 22 122/65 95 06/26/22 23:06 95 06/26/22 21:53 38.3 C H 121 H 20 128/70 96 O2 Del Method 06/27/22 08:04 Room Air 06/27/22 07:39 Room Air 06/27/22 02:38 Room Air 06/27/22 02:38 Room Air 06/27/22 01:35 06/27/22 00:34 Room Air 06/26/22 23:06 Room Air 06/26/22 23:06 06/26/22 21:53 Room Air Critical Care Results & Data Vital Signs (Past 12 Hours) Vital Signs Temp Pulse Resp BP Pulse Ox O2 Del Method 06/27/22 08:04 Room Air 06/27/22 07:39 38.9 C H 86 18 133/72 94 Room Air 06/27/22 02:38 Room Air 06/27/22 02:38 37.3 C 79 18 135/69 94 Room Air 06/27/22 01:35 38 C H 77 22 125/61 97 Lab & Micro Results (Past 24 Hours) RBC 3.13 M/uL (3.93-5.22) L 06/27/22 WBC 13.20 K/ul (4.8-10.8) H 06/27/22 Hgb 8.7 g/dl (12.0-16.0) L 06/27/22 Hct 26.8 % (34.1-44.9) L 06/27/22 MCV 85.6 fL (80.0-100.0) 06/27/22 MCH 27.8 pg (25.0-34.0) 06/27/22 MCHC 32.5 g/dL (32.0-36.0) 06/27/22 RDW Standard Deviation 46.3 fL (36.4-46.3) 06/27/22 RDW Coefficient of Variation 14.6 % (11.5-14.5) H 06/27/22 Plt Count 191 K/uL (130-400) 06/27/22 MPV 10.5 fL (9.4-12.3) 06/27/22 Neutrophils (%) (Auto) 90.7 % 06/26/22 Lymphocytes (%) (Auto) 3.5 % 06/26/22 Monocytes # (Auto) 0.73 K/uL (0.24-0.82) 06/26/22 Eosinophils # (Auto) 0.00 K/uL (0-0.50) 06/26/22 Immature Granulocyte % (Auto) 0.5 % 06/26/22 Neutrophils # (Auto) 12.69 K/uL (1.4-6.5) H 06/26/22 Lymphocytes # (Auto) 0.49 K/uL (1.2-3.4) L 06/26/22 Monocytes # (Auto) 0.73 K/uL (0.24-0.82) 06/26/22 Eosinophils # (Auto) 0.00 K/uL (0-0.50) 06/26/22 Basophils # (Auto) 0.02 K/uL (0-0.2) 06/26/22 Immature Granulocyte # (Auto) 0.07 K/uL (0.00-0.02) H 06/26 Na 136 mmol/L (136-145) 06/27/22 K 3.4 mmol/L (3.5-5.1) L 06/27/22 Cl 108 mmol/L (98-107) H 06/27/22 CO2 23 mmol/L (21-32) 06/27/22 Anion Gap 5 (3-11) 06/27/22 BUN 11 mg/dl (6-23) 06/27/22 Creatinine 0.73 mg/dl (0.6-1.2) 06/27/22 Estimated GFR ( Amer) 100.2 ml/min 06/27/22 Estimated GFR (Non-Af Amer) 86.4 ml/min 06/27/22 BUN/Creatinine Ratio 15.1 (10-20) 06/27/22 Glu 91 mg/dl (70-99(Fasting)) 06/27/22 Ca 8.0 mg/dl (8.5-10.1) L 06/27/22 Phosphorus Level 2.0 mg/dl (2.5-4.9) L 06/27/22 Total Bilirubin 0.5 mg/dl (0.2-1.0) 06/26/22 Direct Bilirubin 0.1 mg/dl (0-0.2) 06/26/22 AST 12 U/L (13-39) L 06/26/22 ALT 11 U/L (7-52) 06/26/22 Alkaline Phosphatase 94 U/L (34-104) 06/26/22 TP 6.6 gm/dl (6.0-8.3) 06/26/22 Albumin 3.5 gm/dl (3.4-5.0) 06/26/22 Mg 1.9 mg/dl (1.7-2.4) 06/27/22 08:10 Calcium Level 8.0 mg/dl (8.5-10.1) L 06/27/22 08:10 Diagnostic Findings (Past 24 Hours) Abdomen/Pelvis CT 06/26/22 22:[address] WITH IV CONTRAST CT DOSE: 341.34 mGy.cm HISTORY: Vomiting. fever, severe generalized abdominal pain TECHNIQUE: Multiaxial CT images of the abdomen and pelvis were performed following the use of intravenous contrast. A dose lowering technique was utilized adhering to the principles of ALARA. COMPARISON STUDY: Abdomen and pelvis CT 10/25/2021. FINDINGS: Mild dependent changes seen within the lung bases. No fractures within the visualized osseous structures. There are few subcentimeter hypodense lesions within the liver which remain stable. There are few punctate calcified granulomas within the liver and spleen. Prior cholecystectomy. Common bile duct dilatation remains unchanged. The pancreas remains atrophic. The adrenal glands are unremarkable. Mild heterogeneous opacification of the bilateral kidneys. This is new from the prior study and favors a pyelonephritis. There is also mild urothelial thickening within the bilateral renal collecting systems and ureters. Mild bladder wall thickening suggested but not well visualized due to the metallic artifact from the bilateral total hip arthroplasties. There is mild pelvic floor collapse. The uterus appears surgically absent. Colonic diverticul osis. No evidence for acute diverticulitis. No definite bowel wall thickening or obstruction. The main portal vein is patent. There is a mildly ectatic abdominal aorta measuring up to 2.3 cm in diameter. No retroperitoneal lymphadenopathy. IMPRESSION: 1. Heterogeneous opacification of the bilateral kidneys likely representing a pyelonephritis. 2. There is associated urothelial thickening of the bilateral renal collecting systems/ureters and mild bladder wall thickening. This suggests an associated pyelitis/cystitis. 3. No bowel wall thickening or obstruction. 4. Additional findings as described above. ACT 112: Negative or not required by law. Electronically signed by: Ashish Vigil M.D. 06/27/2022 7:36 AM Chest X-Ray 06/26/22 22:33 XR chest 1V portable HISTORY: 67 years-old Female Sepsis acute sepsis COMPARISON: CT abdomen and pelvis 06/26/2022, chest radiograph 09/14/2021 TECHNIQUE: AP view of the chest FINDINGS: Cardiomediastinal and hilar silhouettes are within normal limits. There is no pneumothorax, pleural effusion, airspace consolidation or overt pulmonary edema. Bones of the chest appear grossly intact. Cholecystectomy. Degenerative changes of the shoulders and spine. IMPRESSION: No acute process. ACT 112: Negative or not required by law. The above report was generated using voice recognition software. It may contain grammatical, syntax or spelling errors. Electronically signed by: Jake Capellan M.D. 06/27/2022 8:28 AM Hip/Pelvis X-Ray 06/27/22 02:09 XR hip LT 2V w pelvis HISTORY: 67 years-old Female pain at left hip chronic left hip pain COMPARISON: CT abdomen and pelvis 06/26/2022 TECHNIQUE: AP view of the pelvis with 2 views of the left hip FINDINGS: Bilateral hip total joint arthroplasties. Electronic device projects over the left anterior abdominal wall. No acute fracture, dislocation or evidence of hardware complication. Unremarkable soft tissues. IMPRESSION: 1. No acute fracture or dislocation. 2. Unremarkable appearance of the bilateral hip total joint arthroplasties. ACT 112: Negative or not required by law. The above report was generated using voice recognition software. It may contain grammatical, syntax or spelling errors. Electronically signed by: Jake Capellan M.D. 06/27/2022 9:19 AM I & O Totals 24 Hours 06/26/22 06/27/22 06/28/22 06:59 06:59 06:59 Intake Total 1999 100 / 100 Output Total Balance 1998 100 / 100 Cumulative 06/26/22 21:45 thru 06/27/22 08:15 Intake Total 2100 Output Total 1 Balance 2098 RT Ventilator Mngmt (Last Documented) Ventilator Ordered Settings Respiratory Rate 18 06/27/22 07:39 Ventilator - PT Measurements Respiratory Rate 18 PG Care Time/CCT Total # of Minutes Spent Total Time Spent with Patient: Total time spent is greater than 50% in coordination of care (as documented) at patient's floor/unit and/or counseling patient: Coding Level of Care Code None Diagnoses Pyelonephritis N12 Uncontrolled type 1 diabetes mellitus with hyperglycemia E10.65 Abdominal pain R10.11 Abdominal location: right upper quadrant Fever R50.9 Nausea & vomiting R11.2 Vomiting type: unspecified Comment no charge admission H&P after midnight (1) Nausea & vomiting Vomiting type: unspecified Qualified Code(s): R11.2 - Nausea with vomiting, unspecified (2) Abdominal pain Abdominal location: right upper quadrant Qualified Code(s): R10.11 - Right upper quadrant pain
--- NOTE | 2022-06-27 09:21 | XRay Report ---
XR hip LT 2V w pelvis HISTORY: 67 years-old Female pain at left hip chronic left hip pain COMPARISON: CT abdomen and pelvis 06/26/2022 TECHNIQUE: AP view of the pelvis with 2 views of the left hip FINDINGS: Bilateral hip total joint arthroplasties. Electronic device projects over the left anterior abdominal wall. No acute fracture, dislocation or evidence of hardware complication. Unremarkable soft tissues . IMPRESSION: 1. No acute fracture or dislocation. 2. Unremarkable appearance of the bilateral hip total joint arthroplasties. ACT 112: Negative or not required by law. The above report was generated using voice recognition software. It may contain grammatical, syntax o r spelling errors. Electronically signed by: Jake Capellan M.D. 06/27/2022 9:19 AM
[2022-06-27 09:26] LABS: Estimated Average Glucose 171 mg/dl; Hemoglobin A1C 7.6 % (4.5-5.6)
[2022-06-27] MEDS ORDERED: PHARMACY GLYCEMIC MGMT CONSULT PRN (09:33)
--- NOTE | 2022-06-27 09:51 | Hospitalist Progress Note ---
Date of Service June 27, 2022 Assessment & Plan Admission and Anticipated Discharge Date Admission Date: June 27, 2022 Results & Data Results & Data ([facility]) Vital Signs (Past 12 Hours) Vital Signs Temp Pulse Pulse Resp BP BP Pulse Ox 06/27/22 08:04 06/27/22 07:39 38.9 C H 86 18 133/72 94 06/27/22 02:38 06/27/22 02:38 37.3 C 79 18 135/69 94 06/27/22 01:35 38 C H 77 22 125/61 97 06/27/22 00:34 38.2 C H 86 22 111/61 99 06/26/22 23:06 38.6 C H 84 22 122/65 95 06/26/22 23:06 95 06/26/22 21:53 38.3 C H 121 H 20 128/70 96 O2 Del Method 06/27/22 08:04 Room Air 06/27/22 07:39 Room Air 06/27/22 02:38 Room Air 06/27/22 02:38 Room Air 06/27/22 01:35 06/27/22 00:34 Room Air 06/26/22 23:06 Room Air 06/26/22 23:06 06/26/22 21:53 Room Air PG Care Time/CCT Total # of Minutes Spent Total Time Spent with Patient: Total time spent is greater than 50% in coordination of care (as documented) at patient's floor/unit and/or counseling patient: Coding
[2022-06-27] MEDS ORDERED: MEROPENEM 500 MG in SYRINGE 0 ML IV SCH (10:00)
[2022-06-27] MEDS ORDERED: INSULIN ASPART 100 UNITS/ML VIAL SC PRN (10:00)
[2022-06-27] MEDS: ASPIRIN 81 MG ECTAB PO SCH (10:41)
[2022-06-27] MEDS: GABAPENTIN 100 MG CAP PO SCH ×3 (10:42→20:05)
[2022-06-27] MEDS: LOSARTAN POTASSIUM 25 MG TAB PO SCH (10:42)
[2022-06-27] MEDS: MONTELUKAST SODIUM 10 MG TABLET PO SCH (10:43)
--- NOTE | 2022-06-27 10:45 | Electrocardiogram Report ---
Test Reason : Blood Pressure : / mmHG Vent. Rate : 086 BPM Atrial Rate : 086 BPM P-R Int : 118 ms QRS Dur : 084 ms QT Int : 350 ms P-R-T Axes : 054 061 045 degrees QTc Int : 418 ms Normal sinus rhythm Normal ECG When compared with ECG of 27-SEP-2021 12:18, No significant change was found Confirmed by Roberto Sanchez ([id number]) on 06/27/2022 10:45:19 AM Referred By: REFERRED SELF Confirmed By:Negro Sanchez
--- NOTE | 2022-06-27 11:01 | Electrocardiogram Report ---
Test Reason : Blood Pressure : / mmHG Vent. Rate : 086 BPM Atrial Rate : 086 BPM P-R Int : 120 ms QRS Dur : 092 ms QT Int : 362 ms P-R-T Axes : 046 031 016 degrees QTc Int : 433 ms Normal sinus rhythm Normal ECG When compared with ECG of 26-JUN-2022 22:40, (unconfirmed) No significant change was found Confirmed by Roberto Sanchez ([id number]) on 06/27/2022 11:01:13 AM Referred By: REFERRED SELF Confirmed By:Negro Sanchez
[2022-06-27 12:52] LABS: A calco-baum cmplx NotReported Not Detected (NotDetected); Bact fragilis Not Reported Not Detected (NotDetected); C auris Not Reported Not Detected (NotDetected); Calbicans Not Reported Not Detected (NotDetected); Candida glabrata Not Reported Not Detected (NotDetected); Candida krusei Not Reported Not Detected (NotDetected); Cneoformans/gatti Not Reported Not Detected (NotDetected); Cparapsilosis Not Reported Not Detected (NotDetected); Ctropicalis Not Reported Not Detected (NotDetected); E cloacae compx Not Reported Not Detected (NotDetected); Efaecalis Not Reported Not Detected (NotDetected); Efaecium Not Reported Not Detected (NotDetected); Enterobacterales DETECTED (NotDetected); Enterobacterales Not Reported DETECTED (NotDetected); Escherichia coli Not Reported DETECTED (NotDetected); H influenzae Not Reported Not Detected (NotDetected); IMP Resistant Gene Not Detected (NotDetected); K aerogenes Not Reported Not Detected (NotDetected); KPC Resistant Gene Not Detected (NotDetected); Koxytoca Not Reported Not Detected (NotDetected); Kpneumoniae grp Not Reported Not Detected (NotDetected); Lmonocyt Not Reported Not Detected (NotDetected); N meningitidis Not Reported Not Detected (NotDetected); NDM Resistant Gene Not Detected (NotDetected); OXA 48 Like Resistant Gene Not Detected (NotDetected); P aeruginosa Not Reported Not Detected (NotDetected); Proteus spp Not Reported Not Detected (NotDetected); Salmonella spp Not Reported Not Detected (NotDetected); Smarcescens Not Reported Not Detected (NotDetected); Staph lugdunensis Not Reported Not Detected (NotDetected); Staph spp. Not Reported Not Detected (NotDetected); Staphaureus Not Reported Not Detected (NotDetected); Staphepi Not Reported Not Detected (NotDetected); Stenmaltophilia Not Reported Not Detected (NotDetected); Strep agal(GrpB) Not Reported Not Detected (NotDetected); Strep pneum Not Reported Not Detected (NotDetected); Strep pyog (GrpA) Not Reported Not Detected (NotDetected); Strep spp Not Reported Not Detected (NotDetected); VIM Resistant Gene Not Detected (NotDetected); mcr-1 Colistin Resistant Gene Not Detected (NotDetected)
--- NOTE | 2022-06-27 12:54 | Pharmacy Report ---
Pharmacy Glycemic Short Note 2 - Date of Service June 27, 2022 - Glycemic Short BSG Results (Last 24 hours): 06/26/22 06/27/22 06/27/22 22:54 01:38 08:10 Glucose 123 H 91 POC Glucose 107 H OUTPATIENT ANTIDIABETIC REGIMEN: * Novolog insulin pump * TDD: 38.2 units/day * Basal: 0.625 units/hr (14.83 units/day) * Correction factor: 45 (> 120 mg/dL) * INS:CHO: 15 HbA1c: 7.6% (06/27/22) ASSESSMENT: * SC is a 67 year old female with T1DM admitted for sepsis secondary to pyelonephritis * Receiving meropenem in light of history of ESBL E.coli * HbA1c suggests reasonable outpatient glycemic management with Novolog insulin pump * Patient follows with [place] [facility] PLAN FOR INPATIENT GLYCEMIC CONTROL: Pt is to manage BSGs with insulin pump per outpatient settings. * RN will have patient read and sign agreement [id number] Insulin Pump Therapy Patient Agreement. * RN will provide and explain form [id number] Flowsheet for Patient * Patient will document their insulin dose given on [id number] which is kept at the bedside, available to caregivers upon request, and which becomes part of the permanent medical record. Pharmacy will sign off consult. Please re-consult if patient will require transition to SC basal/bolus regimen. If at any time the patients condition evidences that he/she is not able to manage the insulin pump (i.e. frequent hypo/hyperglycemia) Pharmacy will assume glycemic control by discontinuing the pump & managing with SQ basal bolus insulin regimen for the interim.
[2022-06-27 13:00] LABS: CTX-M Resistant Gene DETECTED (NotDetected)
[2022-06-27] MEDS: INSULIN, Rapid-Acting PUMP SCH ×3 (13:10→20:48)
[2022-06-27] MEDS: ERTAPENEM SODIUM 1,000 MG in SYRINGE 0 ML IV SCH (19:07)
[2022-06-28] MEDS: LEVOTHYROXINE SODIUM 137 MCG TABLET PO SCH (05:41)
[2022-06-28] MEDS: PANTOprazole 40 MG TAB PO SCH (05:41)
[2022-06-28] MEDS: ASPIRIN 81 MG ECTAB PO SCH (07:56)
[2022-06-28] MEDS: MONTELUKAST SODIUM 10 MG TABLET PO SCH (07:56)
[2022-06-28] MEDS: LOSARTAN POTASSIUM 25 MG TAB PO SCH (07:56)
[2022-06-28] MEDS: GABAPENTIN 100 MG CAP PO SCH ×3 (07:57→19:48)
[2022-06-28] MEDS: ACETAMINOPHEN 1,000 MG/100 ML VIAL IV SCH ×3 (07:57→22:42)
--- NOTE | 2022-06-28 08:00 | Hospitalist Progress Note ---
Date of Service June 28, 2022 Assessment & Plan (1) Pyelonephritis: Plan: 67yo female with T1DM presents with a two-day history of fever (Tmax 102), headache, cough, pain with urination, urinary frequency, nausea, vomiting, and body aches. SIRS secondary to pyelonephritis - Patient with a two-day history of urinary and generalized symptoms prior to admission - Vitals on arrival notable for fever and tachycardia - UA notable for 1+ protein, 1+ blood, positive nitrites, 2+ leuk esterase, WBC>30, 4+ bacteria - Ertapenem to continue and await final culture results - NSS @ 125mL/hr + KCl 20mEq riders ordered (x2 bags) - Benedryl 25mg IV X 1 followed by Compazine 10mg IV X 1 for her headache - Trend CBC, BMP await urine culture and blood cultures - Blood culture preliminary + gram negative bacilli, sensitivity is pending and urine culture still pending - Hx of ESBL with E Coli in August 2019 T1DM - HbA1c 8.2% (03/18/22), repeat value ordered - Continue home insulin pump - Patient tells me that she is on basal rate of 0.61 and has been on this rate for a whle with no changes - Continue BSG checks, insulin pump, hypoglycemic protocol, also added glycemic control consult and endocrinology Mild hypokalemia - Potassium on admission 3.2 - Continue KCl 20mEq riders to IVF - Trend daily BMP Elevated troponin - On admission, hs Troponin mildly elevated to 17.4. Trending downward at 15.1 - EKG: NSR, no overt sign of ischemic change. Repeat EKG today with no change compared to yesterday - Most likely ischemic demand from acute infection Nausea and vomiting - Improving Headache - likely tension headache - Will try Benedryl 25 mg IV x 1 followed by Compazine 10mg IV x 1 HTN: continue home regimen Hypothyroidism: continue home regimen GERD: continue home regimen FEN: T1DM diet, NSS @ 125mL/hr + KCl 20mEq (x2 bags ordered) Code status: DNR/DNI DVT ppx: SCDs PT/OT: ordered Dispo: med/surg (2) Uncontrolled type 1 diabetes mellitus with hyperglycemia: Plan: see above (3) Abdominal pain: Plan: improved (4) Fever: Plan: see above continue to monitor (5) Nausea & vomiting: Plan: imporved (6) Headache: Plan: see above trying Bendryl 25mg followed by compazine 10 mg Admission and Anticipated Discharge Date Admission Date: June 27, 2022 Subjective Attending: Dr Manuel This patient is a 67 year old female with a past medical history of Type I Diabetes on Insulin pump as outpatient, and history of ESBL E Coli bacteremia in August 2019 who presented to the ER 06/27/22 and was admitted for pyelonephritis and possible sepsis and was started on IV Meropenem. Patient also had an elevated Troponin that had trended downward and also had EKG x 2 with no acute changes. Patient febrile with a TMAX of 38.9 on admission. Lactate normal at 0.7 and procalcitonin was elevated at 6.15. Repeat Procalcitonin is improved at 3.47 and WBC count also improved 8.6 (13). She admits that her urine dysuria, urgency and frequency are improving from yesterday. Patient denies any chest pain or SOB. Patient is afebrile today. Blood cultures and urine cultures are still preliminary. Blood preliminary + for gram negative bacilli and urine preliminary + for E Coli. Patient continues on IV ertapenem. Negative nasal MRSA She is complaining of a headache that is in the frontal aspect and radiates to the top of her head. She denies any sinus congestion, any photophobia or visual changes. She denies any further vomiting. Patient states this headache is similar to headaches she occasional gets at home and will take an excedrin for them. She tells me that the tylenol has not helped the headache. She denies any caffeine (coffee or tea) use on a regular basis. Review of Systems Review of Systems: All ROS negative unless stated above in the history Physical Exam Physical Exam: Constitutional: w ell-appearing, no acute distress, la julio cesar in bed HEENT: NCAT, no conjunct ival injection, no sinus tenderness to palpation, neck supple, Pupils eq ual and reactive t o light and accomm odation CV: regula r rhythm, no murmu r appreciated, ext remities well-perf used, no LE edema Resp: CTABL, no wh eezes/rales/rhonch i appreciated, no increased work of breathing GI: soft , nondistended, mi ld generalized ten derness to palpati on lower abdomen, BS normoactive MSK : no CVA tendernes s bilaterally Ski n: warm, dry, no r joon appreciated Ne uro: alert, orient ed, no focal neuro logic deficit appr eciated Results & Data Results & Data ([facility]) Vital Signs (Past 12 Hours) Vital Signs Temp Pulse Resp BP Pulse Ox O2 Del Method 06/28/22 07:47 36.5 C 95 H 18 164/76 H 94 Room Air 06/27/22 22:11 37.8 C H 98 H 16 164/72 H 96 Room Air Laboratory Results Laboratory Results - last 24 hr 06/27/22 06/27/22 06/28/22 17:39 20:36 06:40 WBC RBC Hgb Hct MCV MCH MCHC RDW Std Deviation RDW Coeff of Kandy Plt Count MPV POC Glucose 153 H 189 H Procalcitonin 3.47 H Nasal Screen MRSA (PCR) 06/28/22 06/28/22 06/28/22 08:18 08:25 09:53 WBC 8.63 RBC 3.24 L Hgb 8.8 L Hct 27.3 L MCV 84.3 MCH 27.2 MCHC 32.2 RDW Std Deviation 44.8 RDW Coeff of Kandy 14.6 H Plt Count 197 MPV 10.1 POC Glucose 207 H Procalcitonin Nasal Screen MRSA (PCR) Negative 06/28/22 12:09 WBC RBC Hgb Hct MCV MCH MCHC RDW Std Deviation RDW Coeff of Kandy Plt Count MPV POC Glucose 175 H Procalcitonin Nasal Screen MRSA (PCR) PG Care Time/CCT Total # of Minutes Spent Total Time Spent with Patient: Total time spent is greater than 50% in coordination of care (as documented) at patient's floor/unit and/or counseling patient: Coding Level of Care Code 46358 Subseq Hosp Care Lvl 2 Medical Decision Making Moderate Complexity Diagnoses Pyelonephritis N12 Uncontrolled type 1 diabetes mellitus with hyperglycemia E10.65 Abdominal pain R10.11 Abdominal location: right upper quadrant Fever R50.9 Nausea & vomiting R11.2 Vomiting type: unspecified Headache R51.9 Time Spent (min) 20 (1) Nausea & vomiting Vomiting type: unspecified Qualified Code(s): R11.2 - Nausea with vomiting, unspecified (2) Abdominal pain Abdominal location: right upper quadrant Qualified Code(s): R10.11 - Right upper quadrant pain
[2022-06-28 08:49] LABS: Hematocrit (blood only) 27.3 % (34.1-44.9); Hemoglobin 8.8 g/dl (12.0-16.0); Mean Corpuscular Hemoglobin 27.2 pg (25.0-34.0); Mean Corpuscular Hgb Conc 32.2 g/dL (32.0-36.0); Mean Corpuscular Volume 84.3 fL (80.0-100.0); Mean Platelet Volume 10.1 fL (9.4-12.3); Platelet Count 197 K/uL (130-400); RDW Coefficient of Variation 14.6 % (11.5-14.5); RDW Standard Deviation 44.8 fL (36.4-46.3); Red Blood Count 3.24 M/uL (3.93-5.22); White Blood Count 8.63 K/ul (4.8-10.8)
[2022-06-28] MEDS: INSULIN, Rapid-Acting PUMP SCH ×4 (09:53→21:00)
[2022-06-28] MEDS ORDERED: diphenhydrAMINE 50 MG/ML VIAL IV STA (13:48)
[2022-06-28] MEDS ORDERED: PROCHLORPERAZINE 2 ML IV ONE (14:00)
[2022-06-28] MEDS: ERTAPENEM SODIUM 1,000 MG in SYRINGE 0 ML IV SCH (17:56)
[2022-06-29] MEDS: PANTOprazole 40 MG TAB PO SCH (05:09)
[2022-06-29] MEDS: LEVOTHYROXINE SODIUM 137 MCG TABLET PO SCH (05:10)
--- NOTE | 2022-06-29 07:44 | Hospitalist Progress Note ---
Date of Service June 29, 2022 Assessment & Plan (1) Pyelonephritis: Plan: 67yo female with T1DM presents with a two-day history of fever (Tmax 102), headache, cough, pain with urination, urinary frequency, nausea, vomiting, and body aches. SIRS secondary to pyelonephritis - Patient with a two-day history of urinary and generalized symptoms prior to admission - Vitals on arrival notable for fever and tachycardia - UA notable for 1+ protein, 1+ blood, positive nitrites, 2+ leuk esterase, WBC>30, 4+ bacteria - Urine and blood cultures + E Coli ESBL - IV Ertapenem to continue - Patient being moved to isolation room - Incentive spirometry ordered - 06/28/22 had Benedryl 25mg IV X 1 followed by Compazine 10mg IV X 1 for her headache (headache resolved) - Trend CBC, BMP await urine culture and blood cultures - Hx of ESBL with E Coli in August 2019 - Repeating urine and blood cultures today - Consulted ID today, appreciate input on discharge medications and length of treatment T1DM - HbA1c 8.2% (03/18/22), repeat value ordered - 7.6 - Continue home insulin pump - Patient tells me that she is on basal rate of 0.61 and has been on this rate for a while with no changes - Continue BSG checks, insulin pump, hypoglycemic protocol, also added glycemic control consult and endocrinology Mild hypokalemia - Potassium today 3.1, discusse with Dr Manuel STAT 40meq Potassium now followed by 20meq TID for 4 doses and stop - Trend daily BMP and Mg level Elevated troponin - On admission, hs Troponin mildly elevated to 17.4. Trending downward at 15.1 - EKG: NSR, no overt sign of ischemic change. Repeat EKG with no change compared to prior - Most likely ischemic demand from acute infection Nausea and vomiting - Improved and tolerating regular diet Headache - Likely was tension headache, resolved with Benedryl 25 mg IV x 1 followed by Compazine 10mg IV x 1 HTN: continue home regimen Hypothyroidism: continue home regimen GERD: continue home regimen FEN: T1DM diet, NSS @ 125mL/hr + KCl 20mEq (x2 bags ordered) Code status: DNR/DNI DVT ppx: SCDs PT/OT: ordered Dispo: med/surg (2) Uncontrolled type 1 diabetes mellitus with hyperglycemia: Plan: see above (3) Abdominal pain: Plan: improved (4) Fever: Plan: see above continue to monitor (5) Nausea & vomiting: Plan: imporved (6) Headache: Plan: see above Resolved Admission and Anticipated Discharge Date Admission Date: June 27, 2022 Subjective Attending: Dr Manuel This patient is a 67 year old female with a past medical history of Type I Diabetes on Insulin pump as outpatient, and history of ESBL E Coli bacteremia in August 2019 who presented to the ER 06/27/22 and was admitted for pyelonephritis and possible sepsis and was started on IV Meropenem and then changed to Ertapenem (was sensitive in Aug 2019). Patient also had an elevated Troponin that had trended downward and also had EKG x 2 with no acute changes. Patient was febrile with a TMAX of 38.9 on admission. Lactate normal at 0.7 and procalcitonin was elevated at 6.15. Repeat Procalcitonin was improved at 3.47 and WBC count also improved. Patient is now 24 hours afebrile. Patient denies any chest pain or SOB. Patient tells me that the IV Benadryl and Compazine worked wonderfully and her headache is completely resolved. Patient denies any further abdominal pain, back pain and has had no N/V. She tells me that she is finally feeling better. She denies ay further dysuria or urinary urg ency or hesitancy. Patient continues on IV ertapenem. Negative nasal MRSA Urine and blood cultures both + for E Coli ESBL, sensitive to Ertapenem Repeat urine culture and blood cultures have been sent Patient tells me that when she had E Coli ESBL in August 2019 she had to come to [place] for daily IV infusions of the antibiotic and she is familiar with this process and able to get her again for this upon discharge. I spoke with Aracely Castillo in case management about patient and the eventual need for IV antibiotics at the time of discharge. Labs today reveal hypokalemia with a K+ 3.1 Will replace with STAT 40meq K+ and then followed by 20 meq TID for a total of 4 doses Will check Mg level today and K+ and Mg levels tomorrow Placed ID consult today Review of Systems Review of Systems: All ROS negative unless stated above in the history Physical Exam Physical Exam: Constitutional: w ell-appearing, no acute distress, si tting up in bed HE ENT: NCAT, no conj unctival injection , no sinus tendern ess to palpation, neck supple, Pupil s equal and reacti ve to light and ac commodation CV: re gular rhythm, no m urmur appreciated, extremities well- perfused, no LE ed analilia Resp: CTABL, n o wheezes/rales/rh onchi appreciated, no increased work of breathing GI: soft, nondistended , nontender to pal pation entire abdo men, BS normoactiv e MSK: no CVA tend erness bilaterally Skin: warm, dry, no rash appreciat ed Neuro: alert, o riented, no focal neurologic deficit appreciated Results & Data Results & Data ([facility]) Vital Signs (Past 12 Hours) Vital Signs Temp Pulse Resp BP Pulse Ox O2 Del Method 06/28/22 22:11 37.3 C 79 16 145/69 H 95 Room Air Laboratory Results Abnormal lab results 06/28/22 06/28/22 06/28/22 Range/Units 12:09 17:25 20:32 POC Glucose 175 H 151 H 218 H (70-99) mg/dl Urine Culture Preliminary 06/29/22-42 Organism 1 Escherichia coli ESBL [place] Count >100,000 CFU/ml Sens Sensitivities to Follow Blood Culture Anaerobic Preliminary 06/29/22-47 Organism 1 Escherichia coli ESBL Sens Sensitivities to Follow Blood Culture PCR Panel If viewing in EMR, results available under LAB Serology tab. Laboratory Results - last 24 hr 06/28/22 06/28/22 06/29/22 17:25 20:32 08:23 WBC RBC Hgb Hct MCV MCH MCHC RDW Std Deviation RDW Coeff of Kandy Plt Count MPV Sodium Potassium Chloride Carbon Dioxide Anion Gap BUN Creatinine Est Cr Clr Drug Dosing Est GFR ( Amer) Est GFR (Non-Af Amer) BUN/Creatinine Ratio Glucose POC Glucose 151 H 218 H 269 H Calcium 06/29/22 06/29/22 09:13 09:13 WBC 6.36 RBC 3.29 L Hgb 8.8 L Hct 27.8 L MCV 84.5 MCH 26.7 MCHC 31.7 L RDW Std Deviation 44.4 RDW Coeff of Knady 14.2 Plt Count 212 MPV 10.1 Sodium 135 L Potassium 3.1 L Chloride 104 Carbon Dioxide 22 Anion Gap 9 BUN 14 Creatinine 0.62 Est Cr Clr Drug Dosing 87.7 Est GFR ( Amer) 109.7 Est GFR (Non-Af Amer) 94.6 BUN/Creatinine Ratio 22.6 H Glucose 253 H POC Glucose Calcium 8.4 L PG Care Time/CCT Total # of Minutes Spent Total Time Spent with Patient: Total time spent is greater than 50% in coordination of care (as documented) at patient's floor/unit and/or counseling patient: Coding Level of Care Code 89519 Subseq Hosp Care Lvl 3 History Detailed Exam Detailed Medical Decision Making Moderate Complexity Diagnoses Pyelonephritis N12 Uncontrolled type 1 diabetes mellitus with hyperglycemia E10.65 Abdominal pain R10.11 Abdominal location: right upper quadrant Fever R50.9 Nausea & vomiting R11.2 Vomiting type: unspecified Headache R51.9 Time Spent (min) 30 (1) Nausea & vomiting Vomiting type: unspecified Qualified Code(s): R11.2 - Nausea with vomiting, unspecified (2) Abdominal pain Abdominal location: right upper quadrant Qualified Code(s): R10.11 - Right upper quadrant pain
[2022-06-29] MEDS: GABAPENTIN 100 MG CAP PO SCH ×3 (09:01→20:06)
[2022-06-29] MEDS: LOSARTAN POTASSIUM 25 MG TAB PO SCH (09:01)
[2022-06-29] MEDS: ASPIRIN 81 MG ECTAB PO SCH (09:01)
[2022-06-29] MEDS: MONTELUKAST SODIUM 10 MG TABLET PO SCH (09:02)
[2022-06-29] MEDS: INSULIN, Rapid-Acting PUMP SCH ×4 (09:05→21:13)
[2022-06-29] MEDS: ACETAMINOPHEN 1,000 MG/100 ML VIAL IV SCH ×2 (09:08→15:35)
[2022-06-29 09:46] LABS: Hematocrit (blood only) 27.8 % (34.1-44.9); Hemoglobin 8.8 g/dl (12.0-16.0); Mean Corpuscular Hemoglobin 26.7 pg (25.0-34.0); Mean Corpuscular Hgb Conc 31.7 g/dL (32.0-36.0); Mean Corpuscular Volume 84.5 fL (80.0-100.0); Mean Platelet Volume 10.1 fL (9.4-12.3); Platelet Count 212 K/uL (130-400); RDW Coefficient of Variation 14.2 % (11.5-14.5); RDW Standard Deviation 44.4 fL (36.4-46.3); Red Blood Count 3.29 M/uL (3.93-5.22); White Blood Count 6.36 K/ul (4.8-10.8)
[2022-06-29 10:09] LABS: BUN Creatinine Ratio 22.6 (10-20); Calcium 8.4 mg/dl (8.5-10.1); Creatinine Clr Calc Pharmacy 87.7 ml/min; Est GFR (African American) 109.7 ml/min; Est GFR (Non-African American) 94.6 ml/min; Potassium 3.1 mmol/L (3.5-5.1)
[2022-06-29] MEDS ORDERED: POTASSIUM CHLORIDE CRTAB 20 MEQ TABCR PO STA (12:04)
[2022-06-29] MEDS: POTASSIUM CHLORIDE CRTAB 20 MEQ TABCR PO SCH ×2 (13:20→20:08)
[2022-06-29] MEDS: ERTAPENEM SODIUM 1,000 MG in SYRINGE 0 ML IV SCH (17:47)
[2022-06-30] MEDS: ACETAMINOPHEN 1,000 MG/100 ML VIAL IV SCH (00:05)
[2022-06-30] MEDS: PANTOprazole 40 MG TAB PO SCH (05:34)
[2022-06-30] MEDS: LEVOTHYROXINE SODIUM 137 MCG TABLET PO SCH (05:35)
[2022-06-30] MEDS: MONTELUKAST SODIUM 10 MG TABLET PO SCH (08:06)
[2022-06-30] MEDS: ASPIRIN 81 MG ECTAB PO SCH (08:07)
[2022-06-30] MEDS: GABAPENTIN 100 MG CAP PO SCH ×2 (08:07→14:43)
[2022-06-30] MEDS: LOSARTAN POTASSIUM 25 MG TAB PO SCH (08:07)
[2022-06-30 08:13] LABS: BUN Creatinine Ratio 19.1 (10-20); Calcium 8.8 mg/dl (8.5-10.1); Est GFR (African American) 106.4 ml/min; Est GFR (Non-African American) 91.8 ml/min; Magnesium 2.2 mg/dl (1.7-2.4); Potassium 3.6 mmol/L (3.5-5.1)
[2022-06-30] MEDS: POTASSIUM CHLORIDE CRTAB 20 MEQ TABCR PO SCH ×2 (08:18→14:42)
--- NOTE | 2022-06-30 08:36 | Infectious Disease Consult ---
Date of Consultation June 30, 2022 Assessment & Plan (1) Pyelonephritis: (2) Infection due to ESBL-producing Escherichia coli: (3) E coli bacteremia: Plan 67 yo F with a history of T1DM, CAD, HLD, HTN, hypothyroidism who was admitted on 06/27 with fever, pain with urination, and found to have ESBL E coli pyelonephritis and bacteremia. CT A/P with contrast on 06/26 showed heterogeneous opacification of the bilateral kidneys likely representing a pyelonephritis, associated urothelial thickening of the bilateral renal collecting system/ureters and mild bladder wall thickening, suggesting associated pyelitis/cystitis. She has improved on ertapenem, and is now afebrile with reso lution of leukocytosis. The susceptibility results show the ESBL E coli is susceptible to amox/clav, but I would hesitate to use this as the NICOLE is on the higher end, which may place her at higher risk for relapse, particularly in this case complicated by bacteremia. Problems: #ESBL E coli pyelonephritis c/b bacteremia #Sulfa allergy Recommendations: -Continue ertapenem 1 g IV q24h to complete a 7 day course from 06/27-07/03 -If patient is discharging before the completion of her IV antibiotics, this can be administered as a once daily administration at an infusion center, or be administered through a midline. -Will sign off. If questions or concerns arise, please contact the Infectious Disease Call Center Consultation Information This patient recommendation is based on a telemedicine consult request which was completed asynchronously through chart review and information provided by the primary physician. The patient was not seen or examined today. The evaluation is consultative in nature and all patient care and treatment decisions can either be accepted or rejected by the patient's primary hospital-based treating physician using their own independent medical judgment for their patient. Construction Services Technician contact information: Please call [facility] [phone]. (Phone Number For Physician Use Only) Time Spent Reviewing Chart: 31+ minutes History of Present Illness Reason for Consultation: ESBL E coli pyelonephritis, bacteremia Attending Physician: Anibal Manuel History of Present Illness 67 yo F with a history of T1DM, CAD, HLD, HTN, hypothyroidism who presented on 06/27 with 2 days of fever (Tmax 102), headache, cough, pain with urination, urinary frequency, N/V, and body aches. She took a home COVID-19 test after an exposure at work, which was negative. On presentation, she was noted to be febrile to 38.6, tachycardic to 121. Labs showed WBC 14, procalcitonin 6.15. COVID-19, flu, RSV negative. UA showed +nitrites, 2+ leuk est, WBC >30. CT A/P with contrast showed heterogeneous opacification of the bilateral kidneys likely representing a pyelonephritis, a ssociated urothelial thickening of the bilateral renal collecting system/ureters and mild bladder wall thickening, suggesting associated pyelitis/cystitis. She was started on meropenem given history of ESBL E coli UTI in Aug 2019. The meropenem was switched to ertapenem on 06/27. Urine and blood cultures are now growing ESBL E coli, for which ID is consulted. She has been afebrile since 06/28. WBC downtrended to 6.36. on 06/29. Allergies Allergy/AdvReac Type Severity Reaction Status Date / Time Sulfa (Sulfonamide Allergy Unknown Hives Verified 06/26/22 23:22 Antibiotics) Home Medications Medication Instructions Recorded Confirmed Type albuterol sulfate 90 mcg/actuation 2 puff inhalation QID PRN 06/27/19 06/26/22 History aerosol inhaler (Ventolin HFA) Shortness Of Breath Or Wheezing montelukast 10 mg tablet 10 mg PO QAM 06/27/19 06/26/22 History cholecalciferol (vitamin D3) 50 50 mcg PO QAM 05/21/20 06/26/22 History mcg (2,000 unit) capsule (Vitamin D3) gabapentin 100 mg capsule 100 mg PO TID 05/21/20 06/26/22 History levothyroxine 137 mcg tablet 137 mcg PO QAM 08/27/20 06/26/22 History losartan 25 mg tablet 25 mg PO QAM 09/14/21 06/26/22 History alendronate 70 mg tablet 70 mg PO WK 09/27/21 06/26/22 History pantoprazole 40 mg tablet,delayed 40 mg PO DAILYBB 09/27/21 06/26/22 History release [id number]-[id number]-[id number] 1 cap PO Q6H PRN headache #7 caps 09/28/21 06/26/22 Rx 50 mg-300 mg-40 mg capsule (Fioricet) subcutaneous insulin pump (t:slim 11/13/21 06/26/22 History X2 Basal-IQ Insulin Pump) ondansetron HCl 4 mg tablet 4 mg PO Q6 PRN nausea #20 tabs 04/09/22 06/26/22 Rx Novolog Flexpen U-100 Insulin 100 See Rx Instructions subcut TID #30 05/05/22 06/26/22 Rx unit/mL (3 mL) subcutaneous mL (insulin aspart U-100) OneTouch Ultra Test (blood sugar #100 ea 05/05/22 06/26/22 Rx diagnostic) acetaminophen 500 mg capsule 1,000 mg PO TID PRN Pain 06/26/22 06/26/22 History aspirin 81 mg tablet,delayed 81 mg PO DAILY 06/26/22 06/26/22 History release (Raymond Low Dose Aspirin) insulin aspart U-100 100 unit/mL 0 unit continuous subcutaneous 06/26/22 06/26/22 History subcutaneous solution (Novolog infusion CONTINOUS U-100 Insulin aspart) Patient History Medical History (Updated 06/30/22 @ 11:21 by Aracely Hong MD) Age related osteoporosis Possible, prescribed Fosomax Anemia Bilateral hip joint arthritis CAD (coronary artery disease) Moderate non-obstructive CAD per 2019 cardiac cath COVID-19 Diabetic retinopathy associated with type 1 diabetes mellitus Per records, pt denies Elevated LFTs Encounter for pre-operative examination Gastroparesis History of COVID-19 08/2021 Hyperlipidemia Hypertension Hypothyroidism RLS (restless legs syndrome) SARS-CoV-2 positive Sphincter of Oddi dysfunction Type 1 diabetes mellitus, uncontrolled + insulin pump Surgical History History of biliary stent insertion Since removed History of cholecystectomy History of total left knee replacement Hx of cardiac cath 2019 > no stents S/P ERCP ERCP (09/27/21): Grade 1 view, MAC#3, ETT [address] [facility]. No issues noted per post-op anesthesia progress note. Status post right hip replacement Right DEE (12/22/20): SAB- L3 at [facility]. No issues noted per post-op anesthesia progress note. Family History Mother Family history of diabetes mellitus Other No significant family history Social History Smoking Status: Current every day smoker Tobacco Type: Cigarettes Cigarettes Per Day: .5-1 PPD (Intermittent tobacco use x 10+ years); Second Hand Exposure: No; Do You Dip or Chew Tobacco: No; Tobacco Cessation Education Requested by Patient: No Hx Alcohol Use: No Hx Substance Use: No Preferred Language: [place] Communication Ability: Effective Visual Impairment: No Limitations Hearing Ability: Normal Operating Room Registered Nurse Required: No Beliefs That Will Affect Care: None marital status: / Current Living Situation: Family Current Living Situation Comment: SON AND DAUGHTER IN LAW Other Information That Helps Us Care for You: No Feels Safe at Home: Yes Safety Concerns: Feels Safe At This Time Assistive Devices: None Assistive Devices Comment: insulin pump Review of System Pt not seen Physical Exam Physical Exam: Pt not seen Results & Data ([facility]) Vital Signs (Past 12 Hours) Vital Signs Temp Pulse Resp BP Pulse Ox O2 Del Method 06/30/22 07:07 37 C 64 16 129/74 96 Room Air 06/29/22 20:51 36.9 C 68 16 134/75 95 Room Air Laboratory Results Laboratory Results - last 48 hr 06/28/22 06/28/22 06/28/22 12:09 17:25 20:32 WBC RBC Hgb Hct MCV MCH MCHC RDW Std Deviation RDW Coeff of Kandy Plt Count MPV Sodium Potassium Chloride Carbon Dioxide Anion Gap BUN Creatinine Est Cr Clr Drug Dosing Est GFR ( Amer) Est GFR (Non-Af Amer) BUN/Creatinine Ratio Glucose POC Glucose 175 H 151 H 218 H Calcium Magnesium 06/29/22 06/29/22 06/29/22 08:23 09:13 09:13 WBC 6.36 RBC 3.29 L Hgb 8.8 L Hct 27.8 L MCV 84.5 MCH 26.7 MCHC 31.7 L RDW Std Deviation 44.4 RDW Coeff of Kandy 14.2 Plt Count 212 MPV 10.1 Sodium 135 L Potassium 3.1 L Chloride 104 Carbon Dioxide 22 Anion Gap 9 BUN 14 Creatinine 0.62 Est Cr Clr Drug Dosing 87.7 Est GFR ( Amer) 109.7 Est GFR (Non-Af Amer) 94.6 BUN/Creatinine Ratio 22.6 H Glucose 253 H POC Glucose 269 H Calcium 8.4 L Magnesium 06/29/22 06/29/22 06/29/22 09:13 12:09 16:51 WBC RBC Hgb Hct MCV MCH MCHC RDW Std Deviation RDW Coeff of Kandy Plt Count MPV Sodium Potassium Chloride Carbon Dioxide Anion Gap BUN Creatinine Est Cr Clr Drug Dosing Est GFR ( Amer) Est GFR (Non-Af Amer) BUN/Creatinine Ratio Glucose POC Glucose 77 185 H Calcium Magnesium 2.0 06/29/22 06/30/22 06/30/22 20:48 06:58 08:02 WBC RBC Hgb Hct MCV MCH MCHC RDW Std Deviation RDW Coeff of Kandy Plt Count MPV Sodium 141 Potassium 3.6 Chloride 108 H Carbon Dioxide 27 Anion Gap 6 BUN 13 Creatinine 0.68 Est Cr Clr Drug Dosing 80.0 Est GFR ( Amer) 106.4 Est GFR (Non-Af Amer) 91.8 BUN/Creatinine Ratio 19.1 Glucose 148 H POC Glucose 154 H 99 Calcium 8.8 Magnesium 2.2 Diagnostic Findings Radiology: 06/26 CT A/P with contrast FINDINGS: Mild dependent changes seen within the lung bases. No fractures within the visualized osseous structures. There are few subcentimeter hypodense lesions within the liver which remain stable. There are few punctate calcified granulomas within the liver and spleen. Prior cholecystectomy. Common bile duct dilatation remains unchanged. The pancreas remains atrophic. The adrenal glands are unremarkable. Mild heterogeneous opacification of the bilateral kidneys. This is new from the prior study and favors a pyelonephritis. There is also mild urothelial thickening within the bilateral renal collecting systems and ureters. Mild bladder wall thickening suggested but not well visualized due to the metallic artifact from the bilateral total hip arthroplasties. There is mild pelvic floor collapse. The uterus appears surgically absent. Colonic diverticulosis. No evidence for acute diverticulitis. No definite bowel wall thickening or obstruction. The main portal vein is patent. There is a mildly ectatic abdominal aorta measuring up to 2.3 cm in diameter. No retroperitoneal lymphadenopathy. IMPRESSION: 1. Heterogeneous opacification of the bilateral kidneys likely representing a pyelonephritis. 2. There is associated urothelial thickening of the bilateral renal collecting systems/ureters and mild bladder wall thickening. This suggests an associated pyelitis/cystitis. 3. No bowel wall thickening or obstruction. 4. Additional findings as described above. Microbiology: 06/29/22 10:23 Urine,Clean Catch Urine Culture - Preliminary No growth - Less than 1,000 colonies/mL, Final report to follow. 06/26/22 22:57 Urine,Clean Catch Urine Culture - Final Escherichia coli ESBL 06/26/22 23:14 Blood Aerobic Blood Culture - Preliminary No growth in Aerobic bottle after 48 hours. 06/26/22 23:14 Blood Anaerobic Blood Culture - Preliminary Escherichia coli ESBL 06/26/22 22:54 Blood Aerobic Blood Culture - Preliminary No growth in Aerobic bottle after 48 hours. 06/26/22 22:54 Blood Anaerobic Blood Culture - Preliminary Escherichia coli ESBL ESBL E col RX M.I.C. --- --------- Amox/Clav S <=8/4 Ampicillin R >16 Amp/Sul R >16/8 Cefazolin R >16 Cefepime R >16 Cefotaxime R >16 Ceftriaxone R >2 Ciprofloxacin R >2 Ertapenem S <=0.5 Gentamicin S <=4 Levofloxacin R >4 Meropenem S <=1 Tobramycin S <=4 Trimeth/Sulfa R >2/38 Medications Administered Current Inpatient Medications Albuterol (Albuterol Hfa 8 Gm Inhaler) 2 puffs INH QID PRN PRN Reason: Shortness Of Breath Or Wheezing Stop: 07/27/22 01:18 Aspirin (Aspirin 81 Mg Ectab) 81 mg PO DAILY [facility] Stop: 07/27/22 08:59 Last Admin: 06/30/22 08:07 Dose: 81 mg Dextrose (Dextrose 50% 50 Ml Syringe) 25 - 50 ml IV UD PRN; Protocol PRN Reason: Hypoglycemia Protocol Stop: 07/27/22 01:08 Gabapentin (Gabapentin 100 Mg Cap) 100 mg PO TID [facility] Stop: 07/27/22 08:59 Last Admin: 06/30/22 08:07 Dose: 100 mg Glucagon (Glucagon For Inj 1 Mg Vial) 1 mg SQ UD PRN; Protocol PRN Reason: Hypoglycemia Protocol Stop: 07/27/22 01:08 Glucose (Glucose 40% Gel 15 Gm Tube) 15 - 30 gm PO UD PRN; Protocol PRN Reason: Hypoglycemia Protocol Stop: 07/27/22 01:08 Glucose (Glucose 10 Tab/Tube) 4 - 8 tab PO UD PRN; Protocol PRN Reason: Hypoglycemia Treatment Stop: 07/27/22 01:08 Ertapenem 1,000 mg/ Syringe 10 mls @ 2 mls/min IV Q24H [facility]; Protocol Stop: 07/07/22 17:59 Last Admin: 06/29/22 17:47 Dose: 2 mls/min Insulin Aspart (Insulin, Rapid-Acting Pump) 1 each N/A ACHS [facility]; Protocol Stop: 07/27/22 11:29 Last Admin: 06/30/22 09:10 Dose: 1 each Insulin Aspart (Insulin Aspart 100 Units/Ml Vial) 0 units SC PRN PRN PRN Reason: Pump Refill Use ONLY Stop: 07/27/22 09:59 Levothyroxine Sodium (Levothyroxine Sodium 137 Mcg Tablet) [facility] 07/27/22 06:29 Last Admin: 06/30/22 05:35 Dose: 137 mcg Losartan Potassium (Losartan Potassium 25 Mg Tab) [facility] [place] Stop: 07/27/22 08:59 Last Admin: 06/30/22 08:07 Dose: 25 mg Melatonin (Melatonin 3 Mg Tab) 3 mg PO HS PRN PRN Reason: Sleep Stop: 07/27/22 01:08 Miscellaneous (Carbohydrates For Hypoglycemia ) 15 - 30 gm PO UD PRN PRN Reason: Hypoglycemia Protocol Stop: 07/27/22 01:08 Montelukast Sodium (Montelukast Sodium 10 Mg Tablet) [facility] [place] Stop: 07/27/22 08:59 Last Admin: 06/30/22 08:06 Dose: 10 mg Morphine Sulfate (Morphine Sulfate 2 Mg/Ml Carp) 2 mg IV Q3H PRN PRN Reason: Pain Stop: 07/11/22 03:08 Last Admin: 06/27/22 03:57 Dose: 2 mg Ondansetron HCl (Ondansetron Inj 2 Mg/Ml 2 Ml Vial) 4 mg IV Q4H PRN PRN Reason: Nausea Stop: 07/27/22 03:08 Last Admin: 06/27/22 22:10 Dose: 4 mg Pantoprazole Sodium (Pantoprazole 40 Mg Tab) 40 mg PO DAILYBB [facility] Stop: 07/27/22 06:29 Last Admin: 06/30/22 05:34 Dose: 40 mg Potassium Chloride (Potassium Chloride Crtab 20 Meq Tabcr) 20 meq PO TID [facility] Stop: 06/30/22 14:01 Last Admin: 06/30/22 08:18 Dose: 20 meq
[2022-06-30] MEDS: INSULIN, Rapid-Acting PUMP SCH ×3 (09:10→17:32)
[2022-06-30] MEDS: ERTAPENEM SODIUM 1,000 MG in SYRINGE 0 ML IV SCH (15:32)
--- NOTE | 2022-07-03 07:19 | Discharge Summary ---
Date of Service June 30, 2022 Admission HPI Per Admitting Provider 67yo female with T1DM presents with a two-day history of fever (Tmax 102), headache, cough, pain with urination, urinary frequency, nausea, vomiting, and body aches. Patient took a home covid test after an exposure at work, which was negative. Patient denies vision changes, CP, palpitations, SOB, edema, hematochezia, melena, numbness, tingling, weakness, or other symptoms. Denies and recent travel. Upon arrival, vitals were notable for fever (38.6) and tachycardia (121); BP controlled, no tachypnea, patient afebrile, spO2 adequate on room air. Initial labs were notable for leukocytosis (14.0), anemia (9.5), mild hypokalemia (3.2), and elevated procalcitonin (6.15); platelets wnl, no additional electrolyte abnormalities, creatinine not elevated, LFTs wnl, Tbili not elevated, covid PCR negative, influenza and RSV PCR negative. UA notable for 1+ protein, 1+ blood, positive nitrites, 2+ leuk esterase, WBC>30, 4+ bacteria In the ED, patient received NSS 1L bolus (x1), acetaminophen, zofran, and fam otidine. EKG: NSR, no overt ischemic change Imaging: CT abdomen/pelvis: patchy enhancement of right kidney suspicious for pyelonephritis, with possible involvement of left kidney; no hydronephrosis or ureterolithiasis Surrogate decision-maker in case of an emergency: anjel Patel (cell: [phone]) Principal Diagnosis pyelonephritis Discharge Exam Constitutional: well-appearing, no acute distress, laying in bed HEENT: NCAT, no conjunctival injection CV:regular rhythm, no murmur appreciated, extremities well-perfused, no LE edema Resp: CTABL, no wheezes/rales/rhonchi appreciated, no increased work of breathing GI: soft, nondistended, mild generalized tenderness to palpation lower abdomen, BS normoactive MSK: negative CVA tenderness on right, tender to palpation right later hip Skin: warm, dry, no rash appreciated Neuro: alert, oriented, no focal neurologic deficit appreciated Discharge Data Allergies Allergy/AdvReac Type Severity Reaction Status Date / Time Sulfa (Sulfonamide Allergy Unknown Hives Verified 07/03/22 14:07 Antibiotics) Consultations 06/27/22 00:28 ED Decision to Admit Stat 06/29/22 12:24 Consult Infectious Diseases Routine Ordered Studies 06/26/22 22:33 CT Abd and Pelvis [CT abd pelvis IV con only] Urgent Hospital Course (1) Pyelonephritis: 67yo female with T1DM presents with a two-day history of fever (Tmax 102), headache, cough, pain with urination, urinary frequency, nausea, vomiting, and body aches. Sepsis secondary to pyelonephritis/ bacteremia E. coli - Patient with a two-day history of urinary and generalized symptoms prior to admission - Vitals on arrival notable for fever and tachycardia - UA notable for 1+ protein, 1+ blood, positive nitrites, 2+ leuk esterase, WBC>30, 4+ bacteria - Urine and blood cultures + E Coli ESBL - IV Ertapenem to continue - Patient being moved to isolation room - Incentive spirometry ordered - 06/28/22 had Benedryl 25mg IV X 1 followed by Compazine 10mg IV X 1 for her headache (headache resolved) - Trend CBC, BMP await urine culture and blood cultures - Hx of ESBL with E Coli in August 2019 - Consulted ID, appreciate input on discharge medications and length of treatment Discharge medications as noted below T1DM - HbA1c 8.2% (03/18/22), repeat value ordered - 7.6 - Continue home insulin pump - Patient tells me that she is on basal rate of 0.61 and has been on this rate for a while with no changes - Continue BSG checks, insulin pump, hypoglycemic protocol, also added glycemic control consult and endocrinology Mild hypokalemia - Potassium today 3.1, discusse with Dr Kaleb CORRAL 40meq Potassium now followed by 20meq TID for 4 doses and stop - resolved Elevated troponin - On admission, hs Troponin mildly elevated to 17.4. Trending downward at 15.1 - EKG: NSR, no overt sign of ischemic change. Repeat EKG with no change compared to prior - Most likely ischemic demand from acute infection Nausea and vomiting - Improved and tolerating regular diet Headache - Likely was tension headache, resolved with Benedryl 25 mg IV x 1 followed by Compazine 10mg IV x 1 HTN: continue home regimen Hypothyroidism: continue home regimen GERD: continue home regimen (2) Uncontrolled type 1 diabetes mellitus with hyperglycemia: see above (3) Abdominal pain: improved (4) Fever: see above continue to monitor (5) Nausea & vomiting: imporved (6) Headache: see above Resolved Total Time Total Time Spent Total Time Spent (In Minutes): 35 Discharge Plan Discharge Items Patient Disposition: Home - Self-Care Reason For Visit: PYELONEPHRITIS Discharge Diagnosis: Pyelonephritis Condition on Discharge: Fair Activity: Resume your previous activity Non-emergency contact: Primary Care Provider Call non-emergency contact if: you have any medication questions Follow-up/Referrals: Yaz Pantoja CRNP [Primary Care Provider] - Diet: Carb Consistent or DM2 Addtl Attending Provider Instructions: You have been hospitalized for an acute medical problem. During your stay at [facility], we have made an effort to correct the problem that brought you to the hospital while keeping you as comfortable as possible. Medications were used to bring your condition under control and your discharge instructions will include directions for any medications you should take after leaving the hospital. Please make sure you see your Primary Care Provider as part of your follow up plan. Will recommend followup with PCP in 1-2 weeks Continue IV antibiotics for 3 more days. Last dose on 07/03 Pending Studies at Discharge: No Stand-Alone Forms: My [facility] Tempo AI, Smoking Cessation Medications and DC Order Prescriptions: New ertapenem 1 gram recon soln 1 g IV DAILY Qty: 3 0RF Continued ondansetron HCl 4 mg tablet 4 mg PO Q6 PRN (Reason: nausea) Qty: 20 1RF (DME) OneTouch Ultra Test Strip See Rx Instructions .ROUTE .MEDSUPPLY Qty: 100 3RF Rx Instructions: test 1 time daily insulin aspart U-100 [Novolog Flexpen U-100 Insulin] 100 unit/mL (3 mL) insulin pen See Rx Instructions subcut TID Qty: 30 2RF Rx Instructions: in case of pump failure TDD 70 units subcut three times a day; (VERIFIED WITH PT PAT CALL 03/10/22) (DME) t:slim X2 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 Misc See Rx Instructions .Route Rx Instructions: As directed gabapentin 100 mg Capsule 100 mg PO TID cholecalciferol (vitamin D3) [Vitamin D3] 50 mcg (2,000 unit) Capsule 50 mcg PO QAM levothyroxine 137 mcg tablet 137 mcg PO QAM montelukast 10 mg tablet 10 mg PO QAM albuterol sulfate [Ventolin HFA] 90 mcg/actuation Hfa Aerosol Inhaler 2 puff INHALATION QID PRN (Reason: Shortness Of Breath Or Wheezing) Label Comments: PRESCRIBED WHEN HAD COVID IN AUG 2021 - NO USE SINCE alendronate 70 mg tablet 70 mg PO WK Label Comments: SUNDAYS Rx Instructions: Thursday pantoprazole 40 mg tablet,delayed release (DR/EC) 40 mg PO DAILYBB [id number] [Fioricet] 50-300-40 mg capsule 1 cap PO Q6H PRN (Reason: headache) Qty: 7 0RF losartan 25 mg tablet 25 mg PO QAM insulin aspart U-100 [Novolog U-100 Insulin aspart] 100 unit/mL solution 0 unit continuous subcutaneous infusion CONTINOUS aspirin [Raymond Low Dose Aspirin] 81 mg tablet,delayed release (DR/EC) 81 mg PO DAILY acetaminophen 500 mg capsule 1,000 mg PO TID PRN (Reason: Pain) Discharge Orders: Discharge Order (Routine); Ordered 06/30/22 Ordered By: Anibal Rivera/Other Patient Handouts: ED Pyelonephritis, Female (Adult) Admission Data Admit Date/Time: 06/27/22 15:56 Attending Provider: Anibal Manuel Admit Provider: Phil Merchant Primary Care Provider: Yaz Pantoja Other Providers: Cheryl Hutson ; Bobbi Freeman ; Ammon Hagen ; Aracely Hong ; Ventura Blake ; Isabel [facility] ; Shreya Marin ; Faith Gomez ; Connie Higgins ; Carly Frausto Other Interventions: Discharge Summary Assessment (RN) Last Done: 06/30/22 17:05 Coding Level of Care Code D/C DAY MANAGEMENT >30 MINS Diagnoses Pyelonephritis N12 Uncontrolled type 1 diabetes mellitus with hyperglycemia E10.65 Abdominal pain R10.11 Abdominal location: right upper quadrant Fever R50.9 Nausea & vomiting R11.2 Vomiting type: unspecified Headache R51.9
== END 2022-06-30 18:28 | disposition home or self-care (01) | DRG 872 ==
LOC: ED 21:45 → 3N 21:45 → SUATTDRO 06-27 01:12 → 3N 06-27 02:00 → 3E 06-29 10:24

== ENCOUNTER 2022-12-28 13:39 | Inpatient (IN) ==
[2022-12-28 14:27] LABS: Basophils # (auto) 0.04 K/uL (0-0.2); Basophils % (auto) 0.3 %; Hematocrit (blood only) 35.3 % (37.0-47.0); Hemoglobin 11.9 g/dl (12.0-16.0); Immature Granulocytes # (auto) 0.09 K/uL (0.01-0.20); Immature Granulocytes % (auto) 0.7 %; Lymphocytes # (auto) 0.79 K/uL (1.2-3.4); Lymphocytes % (auto) 5.9 %; Mean Corpuscular Hemoglobin 30.3 pg (25.0-34.0); Mean Corpuscular Hgb Conc 33.7 g/dL (32.0-36.0); Mean Corpuscular Volume 89.8 fL (80.0-100.0); Mean Platelet Volume 10.1 fL (9.4-12.4); Monocytes # (auto) 0.44 K/uL (0.11-0.59); Monocytes % (auto) 3.3 %; Neutrophils # (auto) 11.98 K/uL (1.40-6.50); Neutrophils % (auto) 89.8 %; Platelet Count 226 K/uL (130-400); RDW Standard Deviation 49.6 fL (36.4-46.3); Red Blood Count 3.93 M/uL (4.20-5.40); White Blood Count 13.34 K/ul (4.8-10.8)
[2022-12-28 14:44] LABS: Albumin Globulin Ratio 1.4 (0.9-2); BUN Creatinine Ratio 16.9 (10-20); Bilirubin,Total 0.5 mg/dl (0.2-1.0); Calcium 9.2 mg/dl (8.6-10.3); Creatinine Clr Calc Pharmacy 59.4 ml/min; Est GFR (African American) 78.8 ml/min; Globulin 2.8 gm/dl (2.5-4.0); Potassium 3.9 mmol/L (3.5-5.1); Total Protein 6.8 gm/dl (6.0-8.3)
[2022-12-28] MEDS ORDERED: FAMOTIDINE 20MG IV PUSH 20 MG/5 ML SYR IV STA (15:00)
[2022-12-28] MEDS ORDERED: ACETAMINOPHEN 1,000 MG/100 ML VIAL IV STA (15:00)
[2022-12-28] MEDS ORDERED: SODIUM CHLORIDE 0.9% 1000ML 2,000 ML IV ONE (15:00)
[2022-12-28] MEDS ORDERED: ONDANSETRON INJ 2 MG/ML 2 ML VIAL IV STA (15:00)
[2022-12-28 15:02] LABS: Influenza A virus by PCR Negative (Neg); Influenza B virus by PCR Negative (Neg); RSV by PCR Negative (Neg); SARS CoV2 RNA(COVID-19) Ceph NEGATIVE (Negative)
[2022-12-28 15:26] LABS: Magnesium 1.7 mg/dl (1.7-2.4)
[2022-12-28] MEDS ORDERED: OPTIRAY 320 100ml IV ONE (15:43)
--- NOTE | 2022-12-28 15:45 | XRay Report ---
XR chest 1V portable CLINICAL HISTORY: Flu-like symptoms. Chest pain. COMPARISON STUDY: Chest CT March 07, 2021 and chest radiograph June 27, 2022. FINDINGS: Lung volumes are normal. Lungs are clear. There is no pneumothorax or pleural effusion. Car diac size is normal. Mediastinal contours are normal. There is no evidence for pulmonary edema. IMPRESSION: No acute cardiopulmonary findings. ACT 112: Negative or not required by law. Electronically signed by: Wes Ramirez M.D. 12/28/2022 3:43 PM
--- NOTE | 2022-12-28 16:27 | CT Scan Report ---
CT OF THE ABDOMEN AND PELVIS WITH CONTRAST CLINICAL HISTORY: Abdominal pain, nausea, vomiting and diarrhea. COMPARISON STUDY: CT of the abdomen and pelvis June 26, 2022. TECHNIQUE: Following IV administration of 91 mL of Optiray, axial images of the abdomen and pelvis we re obtained from the lung bases to the proximal femurs. Images were reviewed in the axial, sagittal, and coronal planes. IV contrast was administered without complication. Automated exposure control wa s utilized for the study. A dose lowering technique was utilized adhering to the principles of ALARA . CT DOSE: 305.87 mGy.cm FINDINGS: Lung bases are unremarkable. No pneumatosis, free air or portal venous gas is present. A fe w subcentimeter hypodense hepatic lesions are unchanged and favor cysts. Mild dilatation of the commo n bile duct is unchanged and may be related to cholecystectomy. Calcified granulomas within the splee n are present. Pancreatic glandular atrophy is again noted. Left kidney is unremarkable. Mild scarrin g within the mid to upper pole the right kidney is noted. A 3 cm hypoenhancing focus within the lower pole of the right kidney is noted. There is urothelial thickening of the right collecting system and right ureter. There is mild adjacent stranding. No renal abscess is present. There are no urinary ca lculi. No evidence for a bowel obstruction. Images of the pelvis are degraded by streak artifact from bilateral hip arthroplasties. Healing left pubic ring fractures are noted. IMPRESSION: 1. 3 cm hypoenhancing focus within the lower pole of the right kidney suggestive of acute pyelonephri tis. Suspected associated right-sided pyelitis. Mild adjacent stranding. No renal abscess. 2. No urinary calculi. No hydronephrosis. 3. No bowel obstruction. No bowel wall thickening. 4. Healing left pubic ring fractures. ACT 112: Negative or not required by law. Electronically signed by: Wes Ramirez M.D. 12/28/2022 4:25 PM
[2022-12-28 17:04] LABS: Adenovirus PCR Not Detected (NotDetected); Bordetella parapertussis PCR Not Detected (NotDetected); Bordetella pertussis PCR Not Detected (NotDetected); Chlamydia pneumoniae PCR Not Detected (NotDetected); Coronavirus 229E PCR Not Detected (NotDetected); Coronavirus CoV-2 (COVID19)PCR Not Detected (NotDetected); Coronavirus HKU1 PCR Not Detected (NotDetected); Coronavirus NL63 PCR Not Detected (NotDetected); Coronavirus OC43PCR Not Detected (NotDetected); Human Metapneumovirus PCR Not Detected (NotDetected); Influenza A PCR Not Detected (NotDetected); Influenza B PCR Not Detected (NotDetected); Mycoplasma pneumoniae PCR Not Detected (NotDetected); Parainfluenza Virus 1 PCR Not Detected (NotDetected); Parainfluenza Virus 2 PCR Not Detected (NotDetected); Parainfluenza Virus 3 PCR Not Detected (NotDetected); Parainfluenza Virus 4 PCR Not Detected (NotDetected); Respiratory Syncytial VirusPCR Not Detected (NotDetected); Rhinovirus/Enterovirus PCR Not Detected (NotDetected)
[2022-12-28] MEDS ORDERED: ERTAPENEM SODIUM 10 ML IV STA (17:36)
--- NOTE | 2022-12-28 17:43 | Emergency Department Note ---
Impression & Plan Sepsis, Pyelonephritis, History of ESBL E. coli infection, Type 1 diabetes mellitus ED Provider Note NAME: THUAN ANGEL AGE: 67 SEX: F ARRIVES VIA: Walk-In INFORMANT: Patient ED PROVIDER(S): Ovi Kent MD CHIEF COMPLAINT: Fever, n/v/d PLAN: Disposition: Admit MEDICAL DECISION MAKING: The patient is a pleasant 67-year-old woman with a past medical history of type 1 diabetes, history of pyelonephritis secondary to ESBL E. coli with associated bacteremia who presents to the emergency department via walk-in, coming by her son for evaluation of intractable nausea, vomiting and diarrhea that developed acutely this morning. She denies cough or congestion, cp, sob. She denies burning with urination. She reports generalized body aches. She reports her blood sugars have remained in the 180 range. On arrival the patient is uncomfortable but no acute distress, febrile to 39.4 with heart rate in the 100s and vital signs otherwise stable. She appears clinically dry. Her abdomen is benign. Chest x-ray negative for acute cardiopulmonary process. WBC 13K with neutrophil predominance but no left shift. H/H 11.9/35.3 improved from prior. Platelets within normal limits. Chemistry without metabolic acidosis. Electrolytes and LFTs without significant abnormality. Lipase is not elevated. Respiratory viral panel/[employer] was negative. CT of the abdomen pelvis was performed and demonstrates evidence of left-sided pyelonephritis. UA is pending. Blood cultures, procalcitonin and lactate were ordered. Invanz also ordered empirically per prior urine cultures sensitivities for ESBL ecoli. Patient received 30cc/kg NSS. Case was d/w ORION Lang PAC with Dr. Hart [facility] hospitalist who will evaluate the patient for admission. Lactic acid subsequently 0.9, within normal limits. Procalcitonin was elevated at 0.71. Triage Nursing notes reviewed and agree them. Prior/outside medical records reviewed Vital Signs: reviewed Differential diagnosis: Viral syndrome, otitis, pharyngitis, pneumonia, influenza, meningitis, urinary tract infection, sepsis, bacteremia, as well as other pathologies. ER treatment provided: See below. Diagnostics interpreted by me: Cardiac Monitoring: An order for continuous cardiac monitoring was placed and demonstrated sinus tachycardia, 106 bpm, no ectopy. Laboratory studies: See below Imaging studies: See below Consultation(s): Case was d/w ORION Lang PAC with Dr. Hart [facility] hospitalist who will evaluate the patient for admission. HPI: The patient is a pleasant 67-year-old woman with a past medical history of type 1 diabetes, history of pyelonephritis secondary to ESBL E. coli with associated bacteremia who presents to the emergency department via walk-in, coming by her son for evaluation of intractable nausea, vomiting and diarrhea that developed acutely this morning. She denies cough or congestion, cp, sob. She denies burning with urination. She reports generalized body aches. She reports her blood sugars have remained in the 180 range. ROS: See above HPI for pertinent positives & negatives. A total of 10 systems reviewed and were otherwise negative. VITALS:See Below PHYSICAL EXAMINATION: GENERAL: Awake, alert, uncomfortable-appearing, in no distress HENT: Normocephalic, atraumatic. Oropharynx with dry mucous membranes and o therwise unremarkable. EYES: Normal conjunctiva. Sclera non-icteric. NECK: Supple. No nuchal rigidity. FROM. No JVD. RESPIRATORY: Clear to auscultation. CARDIAC: Tachycardic rate, normal rhythm. Extremities warm and well perfused. Pulses equal. ABDOMEN: Soft, non-distended. No tenderness to palpation. No rebound or guarding. No masses. RECTAL: Deferred. MUSCULOSKELETAL: Chest examination reveals no tenderness. The back is symmetrical on inspection without obvious abnormality. There is no CVA ten derness to palpation. No joint edema. LOWER EXTREMITIES: Calves are equal size bilaterally and non-tender. No edema. No discoloration. NEURO: Normal sensorium. No sensory or motor deficits noted. SKIN: No rash or jaundice noted. ED COURSE: Critical Care: I have personally spent greater than 75 minutes of critical care time in the direct management of this patient. This includes bedside care, interpretation of diagnostic studies, and testing, discussion with consultants, patient, and family members, and other required patient management activities. This 75 minutes is in excess of all separately billable procedures. Ovi Kent MD Past Med/Surg History Medical History Age related osteoporosis Possible, prescribed Fosomax Anemia Bilateral hip joint arthritis CAD (coronary artery disease) Moderate non-obstructive CAD per 2019 cardiac cath COVID-19 Diabetic retinopathy associated with type 1 diabetes mellitus Per records, pt denies Elevated LFTs Encounter for pre-operative examination Encounter for pre-operative examination Gastroparesis History of COVID-19 08/2021 Hyperlipidemia Hypothyroidism RLS (restless legs syndrome) SARS-CoV-2 positive Sphincter of Oddi dysfunction Type 1 diabetes mellitus, uncontrolled + insulin pump Surgical History History of biliary stent insertion Since removed History of cholecystectomy History of total left knee replacement Hx of cardiac cath 2019 > no stents S/P ERCP ERCP (09/27/21): Grade 1 view, MAC#3, ETT 7.0 at [facility]. No issues noted per post-op anesthesia progress note. Status post right hip replacement Right DEE (12/22/20): SAB- L3 at [facility]. No issues noted per post-op anesthesia progress note. Family History Mother Family history of diabetes mellitus Other No significant family history Social History Smoking Status: Current every day smoker Tobacco Type: Cigarettes Cigarettes Per Day: "less than a pack per day"; Second Hand Exposure: No; Do You Dip or Chew Tobacco: No; Hx Alcohol Use: No Hx Substance Use: No Preferred Language: Latvian Communication Ability: Effective Visual Impairment: No Limitations Hearing Ability: Normal Graphic Artist Required: No Beliefs That Will Affect Care: None marital status: / Current Living Situation: Alone Current Living Situation Comment: SON AND DAUGHTER IN LAW Feels Safe at Home: Yes Assistive Devices: Glasses and Walker Allergies Allergies Allergy/AdvReac Type Severity Reaction Status Date / Time Sulfa (Sulfonamide Allergy Unknown Hives Verified 12/28/22 17:35 Antibiotics) Home Meds Home Medications Medication Instructions Recorded Confirmed albuterol sulfate 90 mcg/actuation 2 puff inhalation QID PRN 06/27/19 12/28/22 aerosol inhaler (Ventolin HFA) Shortness Of Breath Or Wheezing cholecalciferol (vitamin D3) 50 50 mcg PO QAM 05/21/20 12/28/22 mcg (2,000 unit) capsule (Vitamin D3) alendronate 70 mg tablet 70 mg PO WK 09/27/21 12/28/22 subcutaneous insulin pump (t:slim 11/13/21 12/25/22 X2 Basal-IQ Insulin Pump) acetaminophen 500 mg capsule 1,000 mg PO TID PRN Pain 06/26/22 12/28/22 aspirin 81 mg tablet,delayed 81 mg PO DAILY 06/26/22 12/28/22 release (Raymond Low Dose Aspirin) [id number] 250 1 tab PO Q6H PRN Headache 12/28/22 12/28/22 mg-250 mg-65 mg tablet (Excedrin Migraine) insulin glargine 100 unit/mL (3 See Rx Instructions .Route .COMPLEX 12/28/22 12/28/22 mL) subcutaneous pen (Lantus Solostar U-100 Insulin) Previous Rx's Medication Instructions Recorded Novolog FlexPen U-100 Insulin 100 See Rx Instructions subcut TID #30 05/05/22 unit/mL (3 mL) subcutaneous mL (insulin aspart U-100) OneTouch Ultra Test (blood sugar #100 ea 05/05/22 diagnostic) pen needle, diabetic 32 gauge x #50 ea 12/10/22" (BD Shira 2nd Gen Pen Needle) gabapentin 100 mg capsule 100 mg PO TID #90 caps 12/25/22 ibuprofen 800 mg tablet 800 mg PO Q8H PRN pain #90 tabs 12/25/22 insulin lispro 100 unit/mL See Rx Instructions subcut 12/25/22 subcutaneous solution (Humalog .COMPLEX #30 mL U-100 Insulin) levothyroxine 137 mcg tablet 137 mcg PO QAM #90 tabs 12/25/22 losartan 25 mg tablet 25 mg PO DAILY #60 tabs 12/25/22 ondansetron HCl 4 mg tablet 4 mg PO Q6 PRN nausea #20 tabs 12/25/22 pantoprazole 40 mg tablet,delayed 40 mg PO DAILY #90 tabs 12/25/22 release rosuvastatin 10 mg tablet 10 mg PO DAILY #30 tabs 12/25/22 Results & Data (ED) Vital Signs Vital Signs - 24 hr 12/28/22 13:44 12/28/22 16:07 12/28/22 16:57 Temperature 37.7 C H 39.4 C H 39.1 C H Temperature Source Oral Oral Oral Pulse Rate 106 H Pulse Rate [Right Finger] 92 H Respiratory Rate 18 20 Respiratory Effort / Characteristics Non-Labored Spontaneous Non-Labored Respiratory Depth Normal Normal Respiratory Pattern Regular Regular Blood Pressure 111/63 Blood Pressure Mean 79 Blood Pressure Position Sitting Pulse Oximetry 97 99 Oxygen Delivery Method Room Air Room Air Sepsis Recent Fever Within 48 Hours No Sepsis New/Unexplained Change in Mental Status N/A Sepsis Action Taken by Nursing No Action Required Laboratory Data Attestation: I reviewed the patient's lab results. 12/28/22 14:15 12/28/22 14:15 Lab Results 12/28/22 12/28/22 12/28/22 Range/Units 14:06 14:15 14:15 WBC 13.34 H (4.8-10.8) K/ul RBC 3.93 L (4.20-5.40) M/uL Hgb 11.9 L (12.0-16.0) g/dl Hct 35.3 L (37.0-47.0) % MCV 89.8 (80.0-100.0) fL MCH 30.3 (25.0-34.0) pg MCHC 33.7 (32.0-36.0) g/dL RDW Std Deviation 49.6 H (36.4-46.3) fL RDW Coeff of Kandy 15.0 H (11.5-14.5) % Plt Count 226 (130-400) K/uL MPV 10.1 (9.4-12.4) fL Immature Gran % (Auto) 0.7 % Neut % (Auto) 89.8 % Lymph % (Auto) 5.9 % [place] % (Auto) 3.3 % Eos % (Auto) 0.0 % Baso % (Auto) 0.3 % Neut # (Auto) 11.98 H (1.40-6.50) K/uL Lymph # (Auto) 0.79 L (1.2-3.4) K/uL [place] # (Auto) 0.44 (0.11-0.59) K/uL Eos # (Auto) 0.00 (0-0.50) K/uL Baso # (Auto) 0.04 (0-0.2) K/uL Immature Gran # (Auto) 0.09 (0.01-0.20) K/uL Sodium 137 (136-145) mmol/L Potassium 3.9 (3.5-5.1) mmol/L Chloride 101 (98-107) mmol/L Carbon Dioxide 28 (21-32) mmol/L Anion Gap 8 (3-11) BUN 15 (6-23) mg/dl Creatinine 0.89 (0.6-1.2) mg/dl Est Cr Clr Drug Dosing 59.4 ml/min Est GFR ( Amer) 78.8 ml/min Est GFR (Non-Af Amer) 68.0 ml/min BUN/Creatinine Ratio 16.9 (10-20) Glucose 188 H (70-99(Fasting)) mg/dl Calcium 9.2 (8.6-10.3) mg/dl Magnesium 1.7 (1.7-2.4) mg/dl Total Bilirubin 0.5 (0.2-1.0) mg/dl AST 13 (13-39) U/L ALT 8 (7-52) U/L Alkaline Phosphatase 62 (34-104) U/L Ammonia (18-72) umol/L Total Protein 6.8 (6.0-8.3) gm/dl Albumin 4.0 (3.4-5.0) gm/dl Globulin 2.8 (2.5-4.0) gm/dl Albumin/Globulin Ratio 1.4 (0.9-2) Lipase 3 L (11-82) U/L Adenovirus (PCR) Not Detected (NotDetected) B. pertussis DNA (PCR) Not Detected (NotDetected) B.parapertussis DNA PCR Not Detected (NotDetected) C. pneumoniae DNA (PCR) Not Detected (NotDetected) Coronavirus OC43 (PCR) Not Detected (NotDetected) Coronavirus HKU1 (PCR) Not Detected (NotDetected) Coronavirus 229E (PCR) Not Detected (NotDetected) SARS-CoV-2 (PCR) Not Detected (NotDetected) Coronavirus NL63 (PCR) Not Detected (NotDetected) Human Metapneumovir PCR Not Detected (NotDetected) Influenza Type A (PCR) Not Detected (NotDetected) Influenza Type B (PCR) Not Detected (NotDetected) M. pneumoniae (PCR) Not Detected (NotDetected) Parainfluenza 1 (PCR) Not Detected (NotDetected) Parainfluenza 2 (PCR) Not Detected (NotDetected) Parainfluenza 3 (PCR) Not Detected (NotDetected) Parainfluenza 4 (PCR) Not Detected (NotDetected) RSV (RT-PCR) (Neg) RSV (PCR) Not Detected (NotDetected) Entero/Rhino (PCR) Not Detected (NotDetected) 12/28/22 12/28/22 Range/Units 14:15 14:46 WBC (4.8-10.8) K/ul RBC (4.20-5.40) M/uL Hgb (12.0-16.0) g/dl Hct (37.0-47.0) % MCV (80.0-100.0) fL MCH (25.0-34.0) pg MCHC (32.0-36.0) g/dL RDW Std Deviation (36.4-46.3) fL RDW Coeff of Kandy (11.5-14.5) % Plt Count (130-400) K/uL MPV (9.4-12.4) fL Immature Gran % (Auto) % Neut % (Auto) % Lymph % (Auto) % [place] % (Auto) % Eos % (Auto) % Baso % (Auto) % Neut # (Auto) (1.40-6.50) K/uL Lymph # (Auto) (1.2-3.4) K/uL [place] # (Auto) (0.11-0.59) K/uL Eos # (Auto) (0-0.50) K/uL Baso # (Auto) (0-0.2) K/uL Immature Gran # (Auto) (0.01-0.20) K/uL Sodium (136-145) mmol/L Potassium (3.5-5.1) mmol/L Chloride (98-107) mmol/L Carbon Dioxide (21-32) mmol/L Anion Gap (3-11) BUN (6-23) mg/dl Creatinine (0.6-1.2) mg/dl Est Cr Clr Drug Dosing ml/min Est GFR ( Amer) ml/min Est GFR (Non-Af Amer) ml/min BUN/Creatinine Ratio (10-20) Glucose (70-99(Fasting)) mg/dl Calcium (8.6-10.3) mg/dl Magnesium (1.7-2.4) mg/dl Total Bilirubin (0.2-1.0) mg/dl AST (13-39) U/L ALT (7-52) U/L Alkaline Phosphatase (34-104) U/L Ammonia 21.0 (18-72) umol/L Total Protein (6.0-8.3) gm/dl Albumin (3.4-5.0) gm/dl Globulin (2.5-4.0) gm/dl Albumin/Globulin Ratio (0.9-2) Lipase (11-82) U/L Adenovirus (PCR) (NotDetected) B. pertussis DNA (PCR) (NotDetected) B.parapertussis DNA PCR (NotDetected) C. pneumoniae DNA (PCR) (NotDetected) Coronavirus OC43 (PCR) (NotDetected) Coronavirus HKU1 (PCR) (NotDetected) Coronavirus 229E (PCR) (NotDetected) SARS-CoV-2 (PCR) NEGATIVE (NotDetected) Coronavirus NL63 (PCR) (NotDetected) Human Metapneumovir PCR (NotDetected) Influenza Type A (PCR) Negative (NotDetected) Influenza Type B (PCR) Negative (NotDetected) M. pneumoniae (PCR) (NotDetected) Parainfluenza 1 (PCR) (NotDetected) Parainfluenza 2 (PCR) (NotDetected) Parainfluenza 3 (PCR) (NotDetected) Parainfluenza 4 (PCR) (NotDetected) RSV (RT-PCR) Negative (Neg) RSV (PCR) (NotDetected) Entero/Rhino (PCR) (NotDetected) Administered Medications Acetaminophen (Acetaminophen 500 Mg Tab) 500 mg PO Q4H PRN PRN Reason: Fever Stop: 01/27/23 20:33 Last Admin: 12/28/22 21:03 Dose: 500 mg Documented By: JOSE Enoxaparin Sodium (Enoxaparin Inj 40 Mg/0.4 Ml Syr) 40 mg SQ Q24H LIBERTY Stop: 01/27/23 20:59 Last Admin: 12/28/22 22:12 Dose: 40 mg Documented By: JOSE Gabapentin (Gabapentin 100 Mg Cap) 100 mg PO TID LIBERTY Stop: 01/27/23 20:59 Last Admin: 12/28/22 22:12 Dose: 100 mg Documented By: JOSE Lactated Ringer's (Lr) 1,000 mls @ 100 mls/hr IV .Q10H LIBERTY Stop: 12/29/22 14:14 Last Admin: 12/28/22 21:03 Dose: 100 mls/hr Documented By: JOES Ondansetron HCl (Ondansetron Inj 2 Mg/Ml 2 Ml Vial) 4 mg IV Q6H PRN PRN Reason: Nausea And Vomiting Stop: 01/27/23 20:23 Last Admin: 12/28/22 21:03 Dose: 4 mg Documented By: JOSE Oxycodone HCl (Oxycodone Hcl Ir 5 Mg Tab (Immediate Release)) 5 mg PO Q4H PRN PRN Reason: Pain(1,2,3),headache,fever Stop: 01/11/23 19:02 Last Admin: 12/28/22 22:21 Dose: 5 mg Documented By: JOSE Discontinued Medications Sodium Chloride (Nss 1000ml) 2,000 mls @ 999 mls/hr IV .Q2H1M ONE Stop: 12/28/22 17:00 Last Infusion: 12/28/22 20:24 Dose: 0 mls/hr Documented By: Admin: 12/28/22 16:01 Dose: 999 mls/hr Documented By: SONNY Acetaminophen (Ofirmev) 1,000 mg in 100 mls @ 400 mls/hr IV NOW STA Stop: 12/28/22 15:14 Last Infusion: 12/28/22 20:24 Dose: 0 mls/hr Documented By: Admin: 12/28/22 15:54 Dose: 400 mls/hr Documented By: SONNY Famotidine (Pepcid 20mg Iv Push) 20 mg in 5 mls @ 2.5 mls/min IV NOW STA Stop: 12/28/22 15:01 Last Admin: 12/28/22 15:55 Dose: 2.5 mls/min Documented By: SONNY Ertapenem (Invanz) 10 mls @ 2 mls/min IV NOW STA Stop: 12/28/22 17:40 Last Admin: 12/28/22 18:55 Dose: 2 mls/min Documented By: SONNY Ioversol (Optiray 320 100ml) 91 ml IV ONCE ONE Stop: 12/28/22 15:44 Last Admin: 12/28/22 15:43 Dose: 91 ml Documented By: DARRICK Ondansetron HCl (Ondansetron Inj 2 Mg/Ml 2 Ml Vial) 4 mg IV NOW STA Stop: 12/28/22 15:01 Last Admin: 12/28/22 15:55 Dose: 4 mg Documented By: SONNY Imaging Data Radiologist's Impression: Chest X-Ray 12/28/22 15:02 XR chest 1V portable CLINICAL HISTORY: Flu-like symptoms. Chest pain. COMPARISON STUDY: Chest CT March 07, 2021 and chest radiograph June 27, 2022. FINDINGS: Lung volumes are normal. Lungs are clear. There is no pneumothorax or pleural effusion. Cardiac size is normal. Mediastinal contours are normal. There is no evidence for pulmonary edema. IMPRESSION: No acute cardiopulmonary findings. ACT 112: Negative or not required by law. Electronically signed by: Wes Ramirez M.D. 12/28/2022 3:43 PM Abdomen/Pelvis CT 12/28/22 15:04 CT OF THE ABDOMEN AND PELVIS WITH CONTRAST CLINICAL HISTORY: Abdominal pain, nausea, vomiting and diarrhea. COMPARISON STUDY: CT of the abdomen and pelvis June 26, 2022. TECHNIQUE: Following IV administration of 91 mL of Optiray, axial images of the abdomen and pelvis were obtained from the lung bases to the proximal femurs. Images were reviewed in the axial, sagittal, and coronal planes. IV contrast was administered without complication. Automated exposure control was utilized for the study. A dose lowering technique was utilized adhering to the principles of ALARA. CT DOSE: 305.87 mGy.cm FINDINGS: Lung bases are unremarkable. No pneumatosis, free air or portal venous gas is present. A few subcentimeter hypodense hepatic lesions are unchanged and favor cysts. Mild dilatation of the common bile duct is unchanged and may be related to cholecystectomy. Calcified granulomas within the spleen are present. Pancreatic glandular atrophy is again noted. Left kidney is unremarkable. Mild scarring within the mid to upper pole the right kidney is noted. A 3 cm hypoenhancing focus within the lower pole of the right kidney is noted. There is urothelial thickening of the right collecting system and right ureter. There is mild adjacent stranding. No renal abscess is present. There are no urinary calculi. No evidence for a bowel obstruction. Images of the pelvis are degraded by streak artifact from bilateral hip arthroplasties. Healing left pubic ring fractures are noted. IMPRESSION: 1. 3 cm hypoenhancing focus within the lower pole of the right kidney suggestive of acute pyelonephritis. Suspected associated right-sided pyelitis. Mild adjacent stranding. No renal abscess. 2. No urinary calculi. No hydronephrosis. 3. No bowel obstruction. No bowel wall thickening. 4. Healing left pubic ring fractures. ACT 112: Negative or not required by law. Electronically signed by: Wes Ramirez M.D. 12/28/2022 4:25 PM Discharge Plan Visit Data Chief Complaint: Flu Like Symptoms Stated Complaint: FEVER, VOMITTING, BODY ACHES, HEADACHE ED Provider: Ovi Kent Discharge Problem: Sepsis, Pyelonephritis, History of ESBL E. coli infection, Type 1 diabetes mellitus Patient Disposition: Admitted As Inpatient Discharge Instructions Interventions: ED Discharge Assessment Last Done: 12/28/22 19:30
--- NOTE | 2022-12-28 17:59 | History & Physical Report ---
Date of Service December 28, 2022 Assessment & Plan (1) Sepsis: Plan: -Admit to med/tele -Current stable -S/P 2L NSS, blood cultures have been obtained, lactate and procal are in precess, UA will be obtain shortly -ED has ordered a dose of Ertapenem, will be started shortly as blood cultures have now been obtained -Noted to have a leukocytosis with left shift and CT evidence of right pyelonephritis with right pyelitis -Chest xray is clear, had some diarrhea last night, stool studies and c.diff PCR ordered by the ED -Will continue with Ertapenem for now as she was admitted last year with ESBL bacteremia -Follow blood and urine cultures -Will continue with LR at 100 mL/hr x 2 bags as she appears dehydrated -BL SCD's and SQ lovenox for DVT PPX -Will start her on a clear liquid diet for now, advance as tolerated -AM CBC, CMP, Mag (2) Pyelonephritis: Plan: -Noted on CT of the abd/pelvis w/con today -Continue management as per sepsis plan (3) Uncontrolled type 1 diabetes mellitus with hyperglycemia: Plan: -Patient now with insulin pump, functioning well -Glucose at 188 on ED arrival -Patient prefers to continue using pump while admitted, order placed -She's ok with use monitoring her BSG, monitor q4h while having poor oral intake -She should be able to give herself carb coverage and insulin boluses as needed (4) Hypertension: Plan: -Stable -Hold losartan for now to prevent hypotension with her sepsis (5) Hypothyroidism: Plan: -Continue levothyroxine Plan The patient was discussed with Dr. Hart at the time of the admission History of Present Illness Chief Complaint: Nausea, vomiting, fevers Primary Care Provider: NO PCP Jes is a 67 year old female with a PMH significant for recurrent UTI's growing resistant ESBL, DM I, hypothyroidism, HTN who presented to the [facility] ED on 12/28/22 due to ongoing fever, chills, nausea, and vomiting. In the ED the patient was noted to be febrile at 39.4C, tachycardic at 106 but otherwise stable. Labs were significant for a leukocytosis of 13 with left shift of 11, procal pending, UA yet to be collected, and full respiratory biofire negative. Chest xray was clear. CT of the abd/pelvis with con was read as "3 cm hypoenhancing focus within the lower pole of the right kidney suggestive of acute pyelonephritis. Suspected associated right-sided pyelitis. Mild adjacent stranding. No renal abscess.". Prior to admission the patient was given 2L NSS, 20 mg IV famotidine, 4 mg IV zofran, and ordered a dose of Ertapenem. At the time of the exam the patient was lying in bed in no acute distress. She states that she was in her normal state of health until yesterday afternoon when she started to feel fatigued. She took a nap in the afternoon and woke up around 10:30 pm with nausea, non-bloody emesis, and fever of 102 F. This am she woke up and her symptoms continued to progress, she is currently unable to keep food or medications down. She has an insulin pump, which is functioning properly, she would prefer to continue to use her pump during her admission. Her current symptoms are the same as her admission last year for ESBL bacteremia due to pyelonephritis, for which she was treated with ertapenem. She currently feels a little improved compared to ED arrival and has not had another episode of emesis since. We discussed code status, she wishes to be a conditional code. She would only want a trial of intubation in the event of respiratory failure. She would NOT want CPR or defibrillation in the event of cardiac arrest. She would want her son to make medical decisions for her if she could not make them herself. Please refer to Dr. Hart's attestation for any changes to the treatment plan Allergies Allergy/AdvReac Type Severity Reaction Status Date / Time Sulfa (Sulfonamide Allergy Unknown Hives Verified 12/28/22 17:35 Antibiotics) Home Medications Medication Instructions Recorded Confirmed Type albuterol sulfate 90 mcg/actuation 2 puff inhalation QID PRN 06/27/19 12/28/22 History aerosol inhaler (Ventolin HFA) Shortness Of Breath Or Wheezing cholecalciferol (vitamin D3) 50 50 mcg PO QAM 05/21/20 12/28/22 History mcg (2,000 unit) capsule (Vitamin D3) alendronate 70 mg tablet 70 mg PO WK 09/27/21 12/28/22 History subcutaneous insulin pump (t:slim 11/13/21 12/25/22 History X2 Basal-IQ Insulin Pump) Novolog FlexPen U-100 Insulin 100 See Rx Instructions subcut TID #30 05/05/22 12/28/22 Rx unit/mL (3 mL) subcutaneous mL (insulin aspart U-100) OneTouch Ultra Test (blood sugar #100 ea 05/05/22 12/25/22 Rx diagnostic) acetaminophen 500 mg capsule 1,000 mg PO TID PRN Pain 06/26/22 12/28/22 History aspirin 81 mg tablet,delayed 81 mg PO DAILY 06/26/22 12/28/22 History release (Raymond Low Dose Aspirin) pen needle, diabetic 32 gauge x #50 ea 12/10/22 12/25/22 Rx 5/32" (BD Shira 2nd Gen Pen Needle) gabapentin 100 mg capsule 100 mg PO TID #90 caps 12/25/22 12/28/22 Rx ibuprofen 800 mg tablet 800 mg PO Q8H PRN pain #90 tabs 12/25/22 12/28/22 Rx insulin lispro 100 unit/mL See Rx Instructions subcut 12/25/22 12/28/22 Rx subcutaneous solution (Humalog .COMPLEX #30 mL U-100 Insulin) levothyroxine 137 mcg tablet 137 mcg PO QAM #90 tabs 12/25/22 12/28/22 Rx losartan 25 mg tablet 25 mg PO DAILY #60 tabs 12/25/22 12/28/22 Rx ondansetron HCl 4 mg tablet 4 mg PO Q6 PRN nausea #20 tabs 12/25/22 12/28/22 Rx pantoprazole 40 mg tablet,delayed 40 mg PO DAILY #90 tabs 12/25/22 12/28/22 Rx release rosuvastatin 10 mg tablet 10 mg PO DAILY #30 tabs 12/25/22 12/28/22 Rx pnmskqb-vwposdctyddwp-aicghskd 250 1 tab PO Q6H PRN Headache 12/28/22 12/28/22 History mg-250 mg-65 mg tablet (Excedrin Migraine) insulin glargine 100 unit/mL (3 See Rx Instructions .Route .COMPLEX 12/28/22 12/28/22 History mL) subcutaneous pen (Lantus Solostar U-100 Insulin) Past Med/Surg History Medical History (Updated 12/28/22 @ 18:25 by Alessandro Fink PA-C) Age related osteoporosis Possible, prescribed Fosomax Anemia Bilateral hip joint arthritis CAD (coronary artery disease) Moderate non-obstructive CAD per 2019 cardiac cath COVID-19 Diabetic retinopathy associated with type 1 diabetes mellitus Per records, pt denies Elevated LFTs Encounter for pre-operative examination Encounter for pre-operative examination Gastroparesis History of COVID-19 08/2021 Hyperlipidemia Hypothyroidism RLS (restless legs syndrome) SARS-CoV-2 positive Sphincter of Oddi dysfunction Type 1 diabetes mellitus, uncontrolled + insulin pump Surgical History History of biliary stent insertion Since removed History of cholecystectomy History of total left knee replacement Hx of cardiac cath 2019 > no stents S/P ERCP ERCP (09/27/21): Grade 1 view, MAC#3, ETT 7.0 at [facility]. No issues noted per post-op anesthesia progress note. Status post right hip replacement Right DEE (12/22/20): SAB- L3 at [facility]. No issues noted per post-op anesthesia progress note. 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 Required: No Beliefs That Will Affect Care: None marital status: / Current Living Situation: Alone Current Living Situation Comment: SON AND DAUGHTER IN LAW Feels Safe at Home: Yes Assistive Devices: Glasses and Walker Physical Exam Physical Exam: Physical Exam: General: In no acute distress, stated age, ill but non-toxic appearing HEENT: Normocephalic, atraumatic, no scleral icterus, pupils around round, symmetrical, and reactive to light, dry mucus membranes, trachea midline, no thyromegaly Chest/Pulm: No respiratory distress, symmetrical chest expansion, clear breath sounds throughout Cardiac: RRR, no murmurs noted Abdomen: Negative for ascites and bruising, normoactive bowel sounds, soft, mildly tender to palpation in the BL lower abdominal juan : + right sided CVA tenderness, negative left Musculoskeletal: Symmetrical and without signs of acute trauma, upper and lower extremities with full ROM, no atrophy, spasticity, or flaccidity Extremities: Radial, dorsalis pedis, and posterior tibial pulses are intact and symmetrical, no edema noted in the BL LE's Skin: Warm, dry, no rashes , lesions, or scars noted Neuro: Alert and oriented to person, place, month, year, and president, no focal defects, no tremors noted Psych: No acute distress, calm and cooperative during the exam Results & Data Results & Data Vital Signs (Past 12 Hours) Vital Signs Temp Pulse Pulse Resp BP Pulse Ox O2 Del Method 12/28/22 16:57 39.1 C H 12/28/22 16:07 39.4 C H 92 H 20 99 Room Air 12/28/22 13:44 37.7 C H 106 H 18 111/63 97 Room Air Laboratory Results Abnormal lab results 12/28/22 12/28/22 Range/Units 14:15 14:15 WBC 13.34 H (4.8-10.8) K/ul RBC 3.93 L (4.20-5.40) M/uL Hgb 11.9 L (12.0-16.0) g/dl Hct 35.3 L (37.0-47.0) % RDW Std Deviation 49.6 H (36.4-46.3) fL RDW Coeff of Kandy 15.0 H (11.5-14.5) % Neut # (Auto) 11.98 H (1.40-6.50) K/uL Lymph # (Auto) 0.79 L (1.2-3.4) K/uL Glucose 188 H (70-99(Fasting)) mg/dl Lipase 3 L (11-82) U/L Diagnostic Findings Chest X-Ray 12/28/22 15:02 XR chest 1V portable CLINICAL HISTORY: Flu-like symptoms. Chest pain. COMPARISON STUDY: Chest CT March 07, 2021 and chest radiograph June 27, 2022. FINDINGS: Lung volumes are normal. Lungs are clear. There is no pneumothorax or pleural effusion. Cardiac size is normal. Mediastinal contours are normal. There is no evidence for pulmonary edema. IMPRESSION: No acute cardiopulmonary findings. ACT 112: Negative or not required by law. Electronically signed by: Wes Ramirez M.D. 12/28/2022 3:43 PM Abdomen/Pelvis CT 12/28/22 15:04 CT OF THE ABDOMEN AND PELVIS WITH CONTRAST CLINICAL HISTORY: Abdominal pain, nausea, vomiting and diarrhea. COMPARISON STUDY: CT of the abdomen and pelvis June 26, 2022. TECHNIQUE: Following IV administration of 91 mL of Optiray, axial images of the abdomen and pelvis were obtained from the lung bases to the proximal femurs. Images were reviewed in the axial, sagittal, and coronal planes. IV contrast was administered without complication. Automated exposure control was utilized for the study. A dose lowering technique was utilized adhering to the principles of ALARA. CT DOSE: 305.87 mGy.cm FINDINGS: Lung bases are unremarkable. No pneumatosis, free air or portal venous gas is present. A few subcentimeter hypodense hepatic lesions are unchanged and favor cysts. Mild dilatation of the common bile duct is unchanged and may be related to cholecystectomy. Calcified granulomas within the spleen are present. Pancreatic glandular atrophy is again noted. Left kidney is unremarkable. Mild scarring within the mid to upper pole the right kidney is noted. A 3 cm hypoenhancing focus within the lower pole of the right kidney is noted. There is urothelial thickening of the right collecting system and right ureter. There is mild adjacent stranding. No renal abscess is present. There are no urinary calculi. No evidence for a bowel obstruction. Images of the pelvis are degraded by streak artifact from bilateral hip arthroplasties. Healing left pubic ring fractures are noted. IMPRESSION: 1. 3 cm hypoenhancing focus within the lower pole of the right kidney suggestive of acute pyelonephritis. Suspected associated right-sided pyelitis. Mild adjacent stranding. No renal abscess. 2. No urinary calculi. No hydronephrosis. 3. No bowel obstruction. No bowel wall thickening. 4. Healing left pubic ring fractures. ACT 112: Negative or not required by law. Electronically signed by: Wes Ramirez M.D. 12/28/2022 4:25 PM Code Status & VTE Plan Code Status Conditional code; trial of intubation only. NO CPR/defibrillation in the event of cardiac arrest VTE Prophylaxis Plan VTE Prophylaxis will be ordered: Yes Supervising Physician Co-Signing Physician Notes I personally saw and examined the patient. I verified all martinez points and agree with Alessandro Peno, PA-C with the following exceptions and/or additions: 67 year old female presents with fevers, fatigue since yesterday. Prior history of ESBL E. coli. O/E A&Ox3, HS RRR, no murmurs, Chest CTAB, Abdo SNT, right CVA tenderness A/P Acute pyelonephritis - Ertapenem 1g IV, lactate 0.9, LR as above. PG Care Time/CCT Total # of Minutes Spent Total Time Spent with Patient: Total time spent is greater than 50% in coordination of care (as documented) at patient's floor/unit and/or counseling patient: C[place] [address] INT INP/OBS CARE 2/55MIN Patient Type Established Medical Decision Making High Complexity Diagnoses Sepsis A41.9 Pyelonephritis N12 Uncontrolled type 1 diabetes mellitus with hyperglycemia E10.65 Hypertension I10 Hypertension type: primary hypertension Hypothyroidism E03.9 (4) Hypertension Hypertension type: primary hypertension Qualified Code(s): I10 - Essential (primary) hypertension
[2022-12-28] MEDS ORDERED: ACETAMINOPHEN 1,000 MG/100 ML VIAL IV PRN (18:08)
[2022-12-28 18:39] LABS: Appearance Urine Cloudy (Clear); Bacteria Urine Automated 4+ (Negative); Bilirubin Urine Negative (Negative); Blood Urine 1+ (Negative); Color Urine Yellow; Glucose Urine UA Trace (Negative); Ketones Urine Negative (Negative); Leukocyte Esterase Urine 2+ (Negative); Nitrite Urine Positive (Negative); Protein Urine Trace (Negative); RBC Urine Automated 0-4 /hpf (0-4); Specific Gravity Urine > 1.045 (1.000-1.030); Urobilinogen Urine Negative (Negative); WBC Urine Automated >30 /hpf (0-5)
[2022-12-28] MEDS ORDERED: IBUPROFEN 600 MG TAB PO PRN (20:28)
[2022-12-28] MEDS: LACTATED RINGER'S 1,000 ML IV SCH (21:03)
[2022-12-28] MEDS: ONDANSETRON INJ 2 MG/ML 2 ML VIAL IV PRN (21:03)
[2022-12-28] MEDS: ACETAMINOPHEN 500 MG TAB PO PRN (21:03)
[2022-12-28] MEDS: ENOXAPARIN INJ 40 MG/0.4 ML SYR SQ SCH (22:12)
[2022-12-28] MEDS: GABAPENTIN 100 MG CAP PO SCH (22:12)
[2022-12-28] MEDS: oxyCODONE HCL IR 5 MG TAB (IMMEDIATE RELEASE) PO PRN (22:21)
[2022-12-29] MEDS: ACETAMINOPHEN 500 MG TAB PO PRN ×4 (05:33→23:08)
[2022-12-29] MEDS: oxyCODONE HCL IR 5 MG TAB (IMMEDIATE RELEASE) PO PRN ×3 (05:33→23:09)
[2022-12-29] MEDS: LEVOTHYROXINE SODIUM 137 MCG TABLET PO SCH (05:33)
[2022-12-29 06:41] LABS: Basophils # (auto) 0.02 K/uL (0-0.2); Basophils % (auto) 0.2 %; Hemoglobin 9.9 g/dl (12.0-16.0); Immature Granulocytes # (auto) 0.04 K/uL (0.01-0.20); Immature Granulocytes % (auto) 0.3 %; Lymphocytes # (auto) 1.47 K/uL (1.2-3.4); Lymphocytes % (auto) 11.4 %; Mean Corpuscular Hemoglobin 30.4 pg (25.0-34.0); Mean Platelet Volume 10.7 fL (9.4-12.4); Monocytes # (auto) 0.87 K/uL (0.11-0.59); Monocytes % (auto) 6.8 %; Neutrophils # (auto) 10.48 K/uL (1.40-6.50); Neutrophils % (auto) 81.3 %; Platelet Count 174 K/uL (130-400); RDW Coefficient of Variation 15.2 % (11.5-14.5); RDW Standard Deviation 51.2 fL (36.4-46.3); Red Blood Count 3.26 M/uL (4.20-5.40); White Blood Count 12.88 K/ul (4.8-10.8)
[2022-12-29 06:53] LABS: Albumin Globulin Ratio 1.3 (0.9-2); Albumin Level 3.3 gm/dl (3.4-5.0); BUN Creatinine Ratio 17.5 (10-20); Bilirubin,Total 0.5 mg/dl (0.2-1.0); Calcium 7.7 mg/dl (8.6-10.3); Creatinine Clr Calc Pharmacy 83.9 ml/min; Est GFR (African American) 109.1 ml/min; Est GFR (Non-African American) 94.1 ml/min; Globulin 2.6 gm/dl (2.5-4.0); Magnesium 1.7 mg/dl (1.7-2.4); Potassium 3.5 mmol/L (3.5-5.1); Total Protein 5.9 gm/dl (6.0-8.3)
[2022-12-29] MEDS: LACTATED RINGER'S 1,000 ML IV SCH (07:04)
--- NOTE | 2022-12-29 07:37 | Hospitalist Progress Note ---
Date of Service December 29, 2022 Assessment & Plan (1) Pyelonephritis: Plan: Pt is a 67 yo female with PMH of T1DM, CAD, osteoporosis, and UTI septicemia with ESBL organisms presenting with fever, nausea, and vomiting. Gram neg bacteremia secondary to pyelonephritis - WBC 13.34, febrile, mildly tachycardic upon admission - CTAP showed 3cm focus of right kidney suggestive of acute pyelo, no abscess - ED began ertapenem; pt w/ hx of ESBL bacteremia - blood cx showed E.coli and enterobacter, sensitivities pending; urine cx showed gram neg bacilli - continue ertapenem 1g q24hr, tylenol PRN for fever/pain Type 1 diabetes mellitus - patient has insulin pump - most recent A1c 8.0% - patient prefers to continue using pump while admitted; order placed - continue to monitor BSG; monitor q4h while having poor oral intake - she is able to give herself carb coverage and insulin boluses as needed Hypertension - hold losartan in the setting of sepsis Hypothyroidism - continue levothyroxine Diet: regular DVT ppx: jaxson, Verito Code: full Dispo: med/surg, pending sensitivities to tailor ABX (2) History of ESBL E. coli infection: (3) Type 1 diabetes mellitus: (4) Sepsis: (5) Hypertension: (6) Hypothyroidism: Admission and Anticipated Discharge Date Admission Date: December 28, 2022 Supervising Physician Co-Signing Physician Notes I personally examined the patient and verified all martinez points of history and exam, discussed case, and agree with decision making with Dr Galan feeling better less weak vitals noted nad heent nc at mmm breathing unlabored no accessory muscles good effort skin no rashes no pallor or icterus sepsis - pyelo w gram negative bacteremia present on admission - continue ertapenem pending sensitivities. recurrent infections- outpt urology and immunology evals jaxson DVT proph otherwise as above Subjective Spoke with the patient at bedside this AM. She states her symptoms started Thursday with fever then nausea, vomiting, and back pain. She denies urinary burning and frequency (her baseline is urinating q2hr). This is her 3rd or 4th episode of pyelonephritis. She is questioning about how to prevent these infections in the future. She denies SOB, chest pain, and leg pains. Review of Systems Review of Systems: As per HPI Physical Exam Physical Exam: Constitutional: well appearing, no acute distress HEENT: normocephalic, no conjunctival injection CV: RRR, no murmur, no LE edema Respiratory: CTA bilaterally. No rhonchi, wheezes, or crackles. No increased work of breathing GI: soft, nondistended, tender in RUQ and RLQ, + bowel sounds MSK: no gross deformities noted Skin: warm, dry, no rashes Neuro: alert, oriented, no FND noted Psych: mood and affect congruent Results & Data Results & Data Vital Signs (Past 12 Hours) Vital Signs Temp Pulse Pulse Resp BP Pulse Ox O2 Del Method 12/29/22 05:29 38.1 C H 12/29/22 03:03 37.1 C 75 18 111/66 92 Room Air 12/29/22 01:21 37.1 C 95 Room Air 12/28/22 22:17 100 H 12/28/22 20:48 107 H 12/28/22 22:15 39.1 C H 100 H 18 139/72 93 Room Air 12/28/22 20:00 Room Air 12/28/22 20:00 39.4 C H 110 H 18 181/80 H 97 Room Air 12/28/22 23:00 39.3 C H 97 H 18 133/67 91 Room Air 12/28/22 19:30 Room Air Resident Activity Tracking Resident Involvement: Resident Care Provided Care Provided: Adult Hospital Medicine (5) Hypertension Hypertension type: primary hypertension Qualified Code(s): I10 - Essential (primary) hypertension
[2022-12-29] MEDS ORDERED: IBUPROFEN 600 MG TAB PO ONE (08:24)
[2022-12-29] MEDS: GABAPENTIN 100 MG CAP PO SCH ×3 (08:34→21:18)
[2022-12-29] MEDS: ROSUVASTATIN CALCIUM 10 MG TAB PO SCH (08:34)
[2022-12-29] MEDS: ASPIRIN 81 MG ECTAB PO SCH (08:34)
[2022-12-29] MEDS: PANTOprazole 40 MG TAB PO SCH (08:34)
[2022-12-29 08:44] LABS: A calco-baum cmplx NotReported Not Detected (NotDetected); Bact fragilis Not Reported Not Detected (NotDetected); C auris Not Reported Not Detected (NotDetected); Calbicans Not Reported Not Detected (NotDetected); Candida glabrata Not Reported Not Detected (NotDetected); Candida krusei Not Reported Not Detected (NotDetected); Cneoformans/gatti Not Reported Not Detected (NotDetected); Cparapsilosis Not Reported Not Detected (NotDetected); Ctropicalis Not Reported Not Detected (NotDetected); E cloacae compx Not Reported Not Detected (NotDetected); Efaecalis Not Reported Not Detected (NotDetected); Efaecium Not Reported Not Detected (NotDetected); Enterobacterales DETECTED (NotDetected); Enterobacterales Not Reported DETECTED (NotDetected); Escherichia coli Not Reported DETECTED (NotDetected); H influenzae Not Reported Not Detected (NotDetected); IMP Resistant Gene Not Detected (NotDetected); K aerogenes Not Reported Not Detected (NotDetected); KPC Resistant Gene Not Detected (NotDetected); Koxytoca Not Reported Not Detected (NotDetected); Kpneumoniae grp Not Reported Not Detected (NotDetected); Lmonocyt Not Reported Not Detected (NotDetected); N meningitidis Not Reported Not Detected (NotDetected); NDM Resistant Gene Not Detected (NotDetected); OXA 48 Like Resistant Gene Not Detected (NotDetected); P aeruginosa Not Reported Not Detected (NotDetected); Proteus spp Not Reported Not Detected (NotDetected); Salmonella spp Not Reported Not Detected (NotDetected); Smarcescens Not Reported Not Detected (NotDetected); Staph lugdunensis Not Reported Not Detected (NotDetected); Staph spp. Not Reported Not Detected (NotDetected); Staphaureus Not Reported Not Detected (NotDetected); Staphepi Not Reported Not Detected (NotDetected); Stenmaltophilia Not Reported Not Detected (NotDetected); Strep agal(GrpB) Not Reported Not Detected (NotDetected); Strep pneum Not Reported Not Detected (NotDetected); Strep pyog (GrpA) Not Reported Not Detected (NotDetected); Strep spp Not Reported Not Detected (NotDetected); VIM Resistant Gene Not Detected (NotDetected); mcr-1 Colistin Resistant Gene Not Detected (NotDetected)
[2022-12-29 09:01] LABS: CTX-M Resistant Gene DETECTED (NotDetected)
[2022-12-29] MEDS ORDERED: INSULIN, Rapid-Acting PUMP SCH (13:30)
[2022-12-29] MEDS ORDERED: GLUCOSE 10 TAB/TUBE PO PRN (13:45)
[2022-12-29] MEDS ORDERED: INSULIN ASPART 100 UNITS/ML VIAL SC PRN (13:45)
[2022-12-29] MEDS ORDERED: GLUCOSE 40% GEL 15 GM TUBE PO PRN (13:45)
[2022-12-29] MEDS ORDERED: DEXTROSE 50% 50 ML SYRINGE IV PRN (13:45)
[2022-12-29] MEDS ORDERED: GLUCAGON FOR INJ 1 MG VIAL IM PRN (13:45)
[2022-12-29] MEDS ORDERED: CARBOHYDRATES FOR HYPOGLYCEMIA PO PRN (13:45)
--- NOTE | 2022-12-29 17:25 | Billing Data ---
Date of Service December 29, 2022 Coding Level of Care Code 69763 SUB INP/OBS CARE
[2022-12-29] MEDS: ERTAPENEM SODIUM 1,000 MG in SYRINGE 0 ML IV SCH (18:09)
[2022-12-29] MEDS: ENOXAPARIN INJ 40 MG/0.4 ML SYR SQ SCH (21:17)
[2022-12-29] MEDS: rOPINIRole HCL 0.25 MG TABLET PO SCH (21:18)
[2022-12-29] MEDS: ONDANSETRON INJ 2 MG/ML 2 ML VIAL IV PRN (21:19)
[2022-12-30] MEDS: LEVOTHYROXINE SODIUM 137 MCG TABLET PO SCH (05:46)
[2022-12-30 06:49] LABS: Basophils # (auto) 0.03 K/uL (0-0.2); Basophils % (auto) 0.4 %; Hematocrit (blood only) 27.7 % (37.0-47.0); Immature Granulocytes # (auto) 0.02 K/uL (0.01-0.20); Immature Granulocytes % (auto) 0.3 %; Lymphocytes # (auto) 1.28 K/uL (1.2-3.4); Lymphocytes % (auto) 17.2 %; Mean Corpuscular Hemoglobin 29.9 pg (25.0-34.0); Mean Corpuscular Hgb Conc 32.5 g/dL (32.0-36.0); Mean Platelet Volume 10.5 fL (9.4-12.4); Monocytes # (auto) 0.49 K/uL (0.11-0.59); Monocytes % (auto) 6.6 %; Neutrophils # (auto) 5.62 K/uL (1.40-6.50); Neutrophils % (auto) 75.5 %; Platelet Count 136 K/uL (130-400); RDW Coefficient of Variation 14.5 % (11.5-14.5); RDW Standard Deviation 49.2 fL (36.4-46.3); Red Blood Count 3.01 M/uL (4.20-5.40); White Blood Count 7.44 K/ul (4.8-10.8)
[2022-12-30 07:01] LABS: Albumin Globulin Ratio 1.2 (0.9-2); Albumin Level 3.1 gm/dl (3.4-5.0); BUN Creatinine Ratio 16.4 (10-20); Bilirubin,Total 0.4 mg/dl (0.2-1.0); Calcium 7.8 mg/dl (8.6-10.3); Creatinine Clr Calc Pharmacy 87.2 ml/min; Est GFR (African American) 110.3 ml/min; Est GFR (Non-African American) 95.1 ml/min; Globulin 2.6 gm/dl (2.5-4.0); Potassium 3.5 mmol/L (3.5-5.1); Total Protein 5.7 gm/dl (6.0-8.3)
--- NOTE | 2022-12-30 07:28 | Hospitalist Progress Note ---
Date of Service December 30, 2022 Assessment & Plan (1) Pyelonephritis: Plan: Pt is a 67 yo female with PMH of T1DM, CAD, osteoporosis, and UTI septicemia with ESBL organisms presenting with fever, nausea, and vomiting. Gram neg bacteremia secondary to pyelonephritis - WBC 13.34, febrile, mildly tachycardic upon admission - CTAP showed 3cm focus of right kidney suggestive of acute pyelo, no abscess - blood cx showed E.coli and enterobacter; urine cx showed ESBL E.coli sensitive to ertapenem - continue ertapenem 1g q24hr; anticipate pt will need to continue this for complete course of antibiotics (no acceptable oral ABX for tx) - continue tylenol PRN for fever/pain - in the setting of recurrent infections, recommend outpatient uro and immunology evals Migraine - pt w/ hx of migraines and headaches but this headache is worse than any others that she has had - continue pain control with oxycodone 5 mg q4hr PRN, tylenol 500 mg q4hr PRN - continue nausea control with zofran 4 mg q6hr PRN - given toradol 10 mg x1, phenergan 12.5 mg x1, addition of ibuprofen 800 mg TID PRN, started LR at 150 mL/hr Type 1 diabetes mellitus - patient has insulin pump - most recent A1c 8.0% - patient prefers to continue using pump while admitted; order placed - continue to monitor BSG; monitor q4h while having poor oral intake - she is able to give herself carb coverage and insulin boluses as needed Hypertension - BP rising and infection appears to be adequately treated (low risk for developing a septic picture) - resume losartan tomorrow Hypothyroidism - continue levothyroxine Diet: carb count/clear liquids, LR at 125 mL/hr DVT ppx: lovenox, SCDs Code: full Dispo: med/surg (2) History of ESBL E. coli infection: (3) Type 1 diabetes mellitus: (4) Sepsis: (5) Hypertension: (6) Hypothyroidism: Admission and Anticipated Discharge Date Admission Date: December 28, 2022 Supervising Physician Co-Signing Physician Notes I personally examined the patient and verified all martinez points of history and exam, discussed case, and agree with decision making with Dr Galan Feels terrible. Headache, nausea, laying in a dark room on her side. Aching all over. vitals noted laying on her side in a dark room, looking uncomfortable but not necessarily toxic. Osteopathic/musculoskeletal shows left greater than right suboccipitals high tone, tender, decreased range of motioninhibitory pressure mild improvement. Fairly tender not able to do a lot. No focal neurodeficits. Skin without rashes pallor or icterus. Exam otherwise as above. sepsis - pyelo w gram negative bacteremia present on admission - continue ertapenem given recurrence of ESBL. Likely best to complete treatment with ertapenem for total of 14 days as an outpatient. MigraineOMT as above for suboccipitals, Toradol/Phenergan/fluids/magnesium. Supportive care. lovenox DVT proph otherwise as above Subjective Pt seen this AM. She is feeling overall worse. Her head is 10/10 pain with some sensitivity to light. The headache is all over her head into her neck which she describes as sharping and stabbing. She has body aches all over and nausea w/o much of an appetite. She has taken tylenol and oxycodone and these have not helped much. Her right sided back/abdominal pain is also worsened. Review of Systems Review of Systems: As per HPI Physical Exam Physical Exam: Constitutional: ill appearing but non toxic, laying in a dark room on her curled up under blankets HEENT: normocephalic, no conjunctival injection CV: RRR, no murmur Respiratory: CTA bilaterally. No rhonchi, wheezes, or crackles. No increased work of breathing GI: soft, nondistended, tender in RUQ and RLQ, + bowel sounds MSK: no gross deformities noted Skin: warm, dry, no rashes Neuro: alert, oriented, no FND noted Psych: mood and affect congruent Results & Data Results & Data Vital Signs (Past 12 Hours) Vital Signs Temp Pulse Pulse Resp BP Pulse Ox O2 Del Method 12/30/22 03:49 37.0 C 81 18 137/59 L 91 Room Air 12/30/22 02:44 81 12/29/22 23:26 38.4 C H 91 H 18 162/80 H 93 Room Air 12/29/22 19:54 37.3 C 86 20 117/59 L 93 Room Air Resident Activity Tracking Resident Involvement: Resident Care Provided Care Provided: Adult [facility] Medicine (5) Hypertension Hypertension type: primary hypertension Qualified Code(s): I10 - Essential (primary) hypertension
[2022-12-30] MEDS ORDERED: KETOROLAC TROMETHAMINE 15 MG/ML VIAL IV ONE (09:00)
[2022-12-30] MEDS ORDERED: IBUPROFEN 800 MG TAB PO PRN (09:06)
[2022-12-30] MEDS: ACETAMINOPHEN 500 MG TAB PO PRN ×2 (09:55→19:29)
[2022-12-30] MEDS: PANTOprazole 40 MG TAB PO SCH (09:56)
[2022-12-30] MEDS: ROSUVASTATIN CALCIUM 10 MG TAB PO SCH (09:56)
[2022-12-30] MEDS: ASPIRIN 81 MG ECTAB PO SCH (09:56)
[2022-12-30] MEDS: GABAPENTIN 100 MG CAP PO SCH ×3 (09:56→19:31)
[2022-12-30] MEDS: ONDANSETRON INJ 2 MG/ML 2 ML VIAL IV PRN (10:02)
[2022-12-30] MEDS ORDERED: PROMETHAZINE HCL 12.5 MG in SODIUM CHLORIDE 0.9% 50 ML IV ONE (10:09)
[2022-12-30] MEDS: LACTATED RINGER'S 1,000 ML IV SCH ×2 (10:47→19:20)
[2022-12-30] MEDS: MAGNESIUM SULFATE / D5W 1 GM/100 ML BAG IV SCH ×2 (14:20→16:24)
--- NOTE | 2022-12-30 15:17 | Billing Data ---
Date of Service December 30, 2022 Coding Level of Care Code 55916 SUB INP/OBS CARE
[2022-12-30] MEDS: ERTAPENEM SODIUM 1,000 MG in SYRINGE 0 ML IV SCH (18:23)
[2022-12-30] MEDS: ENOXAPARIN INJ 40 MG/0.4 ML SYR SQ SCH (19:30)
[2022-12-30] MEDS: rOPINIRole HCL 0.25 MG TABLET PO SCH (19:31)
[2022-12-31] MEDS: oxyCODONE HCL IR 5 MG TAB (IMMEDIATE RELEASE) PO PRN (00:51)
[2022-12-31] MEDS: LACTATED RINGER'S 1,000 ML IV SCH (04:00)
--- NOTE | 2022-12-31 04:56 | Electrocardiogram Report ---
Test Reason : Blood Pressure : / mmHG Vent. Rate : 064 BPM Atrial Rate : 064 BPM P-R Int : 126 ms QRS Dur : 090 ms QT Int : 396 ms P-R-T Axes : 060 054 011 degrees QTc Int : 408 ms Normal sinus rhythm Normal ECG When compared with ECG of 27-JUN-2022 09:58, No significant change was found Confirmed by James Barbosa ([id number]) on 12/31/2022 4:56:13 AM Referred By: REFERRED SELF Confirmed By:James Barbosa
[2022-12-31] MEDS: LEVOTHYROXINE SODIUM 137 MCG TABLET PO SCH (06:31)
[2022-12-31 06:45] LABS: Albumin Globulin Ratio 1.2 (0.9-2); Albumin Level 3.1 gm/dl (3.4-5.0); BUN Creatinine Ratio 12.5 (10-20); Bilirubin,Total 0.3 mg/dl (0.2-1.0); Calcium 7.6 mg/dl (8.6-10.3); Creatinine Clr Calc Pharmacy 95.2 ml/min; Est GFR (African American) 113.4 ml/min; Est GFR (Non-African American) 97.8 ml/min; Globulin 2.5 gm/dl (2.5-4.0); Magnesium 2.1 mg/dl (1.7-2.4); Potassium 3.2 mmol/L (3.5-5.1); Total Protein 5.6 gm/dl (6.0-8.3)
[2022-12-31 07:10] LABS: Basophils # (auto) 0.02 K/uL (0-0.2); Basophils % (auto) 0.4 %; Hematocrit (blood only) 28.8 % (37.0-47.0); Hemoglobin 9.3 g/dl (12.0-16.0); Immature Granulocytes # (auto) 0.02 K/uL (0.01-0.20); Immature Granulocytes % (auto) 0.4 %; Lymphocytes # (auto) 0.69 K/uL (1.2-3.4); Lymphocytes % (auto) 13.6 %; Mean Corpuscular Hemoglobin 29.8 pg (25.0-34.0); Mean Corpuscular Hgb Conc 32.3 g/dL (32.0-36.0); Mean Corpuscular Volume 92.3 fL (80.0-100.0); Mean Platelet Volume 11.4 fL (9.4-12.4); Monocytes # (auto) 0.35 K/uL (0.11-0.59); Monocytes % (auto) 6.9 %; Neutrophils # (auto) 3.99 K/uL (1.40-6.50); Neutrophils % (auto) 78.7 %; Platelet Count 136 K/uL (130-400); Platelet Estimate Normal (Normal); RDW Coefficient of Variation 14.2 % (11.5-14.5); Red Blood Count 3.12 M/uL (4.20-5.40); White Blood Count 5.07 K/ul (4.8-10.8)
[2022-12-31] MEDS: ACETAMINOPHEN 500 MG TAB PO PRN (07:34)
[2022-12-31] MEDS: POTASSIUM CHLORIDE / WTR 10 MEQ/100 ML PLCT IV SCH ×4 (07:34→09:57)
[2022-12-31] MEDS ORDERED: LOSARTAN POTASSIUM 25 MG TAB PO SCH (09:00)
[2022-12-31] MEDS: ASPIRIN 81 MG ECTAB PO SCH (09:56)
[2022-12-31] MEDS: ROSUVASTATIN CALCIUM 10 MG TAB PO SCH (09:56)
[2022-12-31] MEDS: GABAPENTIN 100 MG CAP PO SCH ×2 (09:56→14:57)
[2022-12-31] MEDS: PANTOprazole 40 MG TAB PO SCH (09:56)
--- NOTE | 2022-12-31 10:28 | Discharge Summary ---
Date of Service December 31, 2022 Admission HPI Per Admitting Provider Jes is a 67 year old female with a PMH significant for recurrent UTI's growing resistant ESBL, DM I, hypothyroidism, HTN who presented to the [facility] ED on 12/28/22 due to ongoing fever, chills, nausea, and vomiting. In the ED the patient was noted to be febrile at 39.4C, tachycardic at 106 but otherwise stable. Labs were significant for a leukocytosis of 13 with left shift of 11, procal pending, UA yet to be collected, and full respiratory biofire negative. Chest xray was clear. CT of the abd/pelvis with con was read as "3 cm hypoenhancing focus within the lower pole of the right kidney suggestive of acute pyelonephritis. Suspected associated right-sided pyelitis. Mild adjacent stranding. No renal abscess.". Prior to admission the patient was given 2L NSS, 20 mg IV famotidine, 4 mg IV zofran, and ordered a dose of Ertapenem. At the time of the exam the patient was lying in bed in no acute distress. She states that she was in her normal state of health until yesterday afternoon when she started to feel fatigued. She took a nap in the afternoon and woke up around 10:30 pm with nausea, non-bloody emesis, and fever of 102 F. This am she woke up and her symptoms continued to progress, she is currently unable to keep food or medications down. She has an insulin pump, which is functioning properly, she would prefer to continue to use her pump during her admission. Her current symptoms are the same as her admission last year for ESBL bacteremia due to pyelonephritis, for which she was treated with ertapenem. She currently feels a little improved compared to ED arrival and has not had another episode of emesis since. We discussed code status, she wishes to be a conditional code. She would only want a trial of intubation in the event of respiratory failure. She would NOT want CPR or defibrillation in the event of cardiac arrest. She would want her son to make medical decisions for her if she could not make them herself. Please refer to Dr. Hart's attestation for any changes to the treatment plan Admission Exam Per Admitting Provider Physical Exam: General:In no acute distress, stated age, ill but non-toxic appearing HEENT:Normocephalic, atraumatic, no scleral icterus, pupils around round, s ymmetrical, and reactive to light, dry mucus membranes, trachea midline, no thyromegaly Chest/Pulm:No respiratory distress, symmetrical chest expansion, clear breath sounds throughout Cardiac:RRR, no murmurs noted Abdomen:Negative for ascites and bruising, normoactive bowel sounds, soft, mildly tender to palpation in the BL lower abdominal juan :+ right sided CVA tenderness, negative left Musculoskeletal:Symmetrical and without signs of acute trauma, upper and lower extremities with full ROM, no atrophy, spasticity, or flaccidity Extremities:Radial, dorsalis pedis, and posterior tibial pulses are intact and symmetrical, no edema noted in the BL LE's Skin:Warm, dry, no rashes , lesions, or scars noted Neuro:Alert and oriented to person, place, month, year, and president, no focal defects, no tremors noted Psych:No acute distress, calm and cooperative during the exam Principal Diagnosis gram neg bacteremia (ESBL E. coli) secondary to pyelonephritis Discharge Exam Constitutional: well appearing, no acute distress HEENT: normocephalic, no conjunctival injection CV: regular rhythm, no murmur, no LE edema Respiratory: Clear to auscultation bilaterally. No rhonchi, wheezes, or crackles. No increased work of breathing GI: soft, nondistended, mildly tender in RUQ/RLQ, positive bowel sounds MSK: no gross deformities noted Skin: warm, dry, no rashes Neuro: alert, oriented, no FND noted Discharge Data Allergies Allergy/AdvReac Type Severity Reaction Status Date / Time Sulfa (Sulfonamide Allergy Unknown Hives Verified 12/28/22 17:35 Antibiotics) Consultations 12/28/22 17:38 ED Decision to Admit Stat Ordered Studies 12/28/22 15:04 CT abd pelvis IV con only Stat IMPRESSION: 1. 3 cm hypoenhancing focus within the lower pole of the right kidney suggestive of acute pyelonephritis. Suspected associated right-sided pyelitis. Mild adjacent stranding. No renal abscess. 2. No urinary calculi. No hydronephrosis. 3. No bowel obstruction. No bowel wall thickening. 4. Healing left pubic ring fractures. Hospital Course (1) Pyelonephritis: Pt is a 67 yo female with PMH of T1DM, CAD, osteoporosis, and UTI septicemia with ESBL organisms presenting with fever, nausea, and vomiting. Gram neg bacteremia secondary to pyelonephritis - WBC 13.34, febrile, mildly tachycardic upon admission - CTAP showed 3cm focus of right kidney suggestive of acute pyelo, no abscess - blood cx showed E.coli and enterobacter; urine cx showed ESBL E.coli sensitive to ertapenem - continue ertapenem 1g q24hr x total 14 days course (pt is set up to receive this at the [facility]) - continue tylenol PRN for fever/pain - in the setting of recurrent infections, recommend outpatient uro and immunology evals Migraine - pt w/ hx of migraines and headaches but this headache is worse than any others that she has had - pain control with oxycodone 5 mg q4hr PRN, tylenol 500 mg q4hr PRN - nausea control with zofran 4 mg q6hr PRN - given toradol 10 mg x1, phenergan 12.5 mg x1, addition of ibuprofen 800 mg TID PRN, started LR at 150 mL/hr - resolved/improved prior to discharge Type 1 diabetes mellitus - patient has insulin pump which she used throughout hospitalization - most recent A1c 8.0% - continue f/u with PCP and endocrine Hypertension - continue losartan tomorrow Hypothyroidism - continue levothyroxine Diet: carb count DVT ppx: lovenox, SCDs Code: full Dispo: home w/ IV ABX x14 days total (2) History of ESBL E. coli infection: (3) Type 1 diabetes mellitus: (4) Sepsis: (5) Hypertension: (6) Hypothyroidism: Total Time Total Time Spent Total Time Spent (In Minutes): <30 Discharge Plan Discharge Items Patient Disposition: Home - Self-Care Reason For Visit: FEVER, NAUSEA, VOMITING Discharge Diagnosis: right sided pyelonephritis Activity: Per Instructions section Non-emergency contact: Primary Care Provider Call non-emergency contact if: you have any medication questions and your symptoms worsen Follow-up/Referrals: [facility] [place] [facility] [place]Provider Group] - 01/15/23 8:45 am (Recurrent infections (pyelo x3-4 episodes)) [facility] [place] [facility] [place]Provider Group] - 01/09/23 10:30 am (Recurrent pyelonephritis x3-4 episodes within 2 years) Manasa Galan DO [Resident] - 01/07/23 10:25 am () Diet: Carb Count or DM1 Addtl Attending Provider Instructions: You were admitted to the hospital for nausea and pain related to pyelonephritis (an infection of your kidney). You were treated with IV fluids, pain medications, and IV antibiotics. Due to the recurrence of these infections, it is recommended that you follow up with an color buffer and urologist for further evaluation. An color buffer can evaluate for certain deficiencies in your immune system while urology will look into anatomic abnormalities that may make you more prone to kidney infections. A discharge summary will be sent to your primary care physician to ensure continuity of care. Please bring this discharge summary with you to your next office appointment so that your provider can review it at that time. Medications: Your medication list has been reviewed and reconciled upon discharge to ensure accuracy and continuity of care. An updated list of all your medications is included with your hospital discharge paperwork. Please review this list closely and make note of any changes to your medications. - You will need to complete a total 14 day course of the IV antibiotic ertapenem. You received 3 doses/days while hospitalized. Your IV antibiotics have been arranged by case management prior to your discharge. Follow up appointments: - [facility] office will call you with an appointment time for next week with Dr. Galan. - Keep all of your follow up appointments as already scheduled. If you cannot make an appointment, notify your provider. CONTACT YOUR PRIMARY CARE PROVIDER if you experience any of the following: - Difficulty following your treatment plan - Difficulty taking any of your medications CALL 911 OR GO TO THE EMERGENCY DEPARTMENT if you experience any of the following: - Sudden, severe abdominal pain or nausea/vomiting - Severe chest pain or chest pain that radiates to your jaw or arm - Sudden, severe shortness of breath or difficulty breathing Pending Studies at Discharge: No Stand-Alone Forms: My [employer], Smoking Cessation Medications and DC Order Prescriptions: Continued (DME) OneTouch Ultra Test Strip See Rx Instructions .ROUTE .MEDSUPPLY Qty: 100 3RF Rx Instructions: test 1 time daily insulin aspart U-100 [Novolog FlexPen U-100 Insulin] 100 unit/mL (3 mL) insulin pen See Rx Instructions subcut TID Qty: 30 2RF Rx Instructions: in case of pump failure TDD 70 units subcut three times a day (DME) pen needle, diabetic [BD Shira 2nd Gen Pen Needle] 32 gauge x 5/32" needle See Rx Instructions miscellaneous .MEDSUPPLY Qty: 50 3RF Rx Instructions: Use a new pen needle each night insulin lispro [Humalog U-100 Insulin] 100 unit/mL solution See Rx Instructions subcut .COMPLEX Qty: 30 3RF Rx Instructions: subcutaneously continuous infusion via insulin pump; TDD 30 units. 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 Misc See Rx Instructions .Route Rx Instructions: As directed rosuvastatin 10 mg tablet 10 mg PO DAILY Qty: 30 3RF gabapentin 100 mg capsule 100 mg PO TID Qty: 90 2RF levothyroxine 137 mcg tablet 137 mcg PO QAM Qty: 90 1RF losartan 25 mg tablet 25 mg PO DAILY Qty: 60 12RF ondansetron HCl 4 mg tablet 4 mg PO Q6 PRN (Reason: nausea) Qty: 20 1RF pantoprazole 40 mg tablet,delayed release (DR/EC) 40 mg PO DAILY Qty: 90 3RF cholecalciferol (vitamin D3) [Vitamin D3] 50 mcg (2,000 unit) Capsule 50 mcg PO QAM alendronate 70 mg tablet 70 mg PO WK Patient Comments: SUNDAYS Rx Instructions: Thursday Excedrin Migraine 250-250-65 mg Tablet 1 tab PO Q6H PRN (Reason: Headache) insulin glargine [Lantus Solostar U-100 Insulin] 100 unit/mL (3 mL) insulin pen See Rx Instructions .ROUTE .COMPLEX Rx Instructions: To be used with pump failure as her basal insulin, 14 UNITS DAILY aspirin [Raymond Low Dose Aspirin] 81 mg tablet,delayed release (DR/EC) 81 mg PO DAILY acetaminophen 500 mg capsule 1,000 mg PO TID PRN (Reason: Pain) Discontinued albuterol sulfate [Ventolin HFA] 90 mcg/actuation Hfa Aerosol Inhaler 2 puff INHALATION QID PRN (Reason: Shortness Of Breath Or Wheezing) Patient Comments: PRESCRIBED WHEN HAD COVID IN AUG 2021 - NO USE SINCE No Action ibuprofen 800 mg tablet 800 mg PO Q8H PRN (Reason: pain) Qty: 90 3RF Discharge Orders: Discharge Order (Routine); Ordered 05/10/23 Ordered By: Manasa Galan Admission Data Admit Date/Time: 12/28/22 17:56 Attending Provider: Remberto Ellis Admit Provider: Harley Hart Primary Care Provider: PCP,NO Other Providers: Harley Hart Supervising Physician Co-Signing Physician Notes I personally examined the patient and verified all martinez points of history and exam, discussed case, and agree with decision making with Dr Galan Feeling better overall. Feels up to going home. vitals noted no distress. Awake and alert pleasant. No focal neurodeficits. Skin without rashes pallor or icterus. sepsis - pyelo w gram negative bacteremia present on admission -recurrence of ESBL. Had a fever this morningbut otherwise looking much better. I suspect this is just because she had a fairly severe infection and will likely have a more slowly resolving fever curve. This corroborated by the rest of her vitals and labs and the fact that she feels and looks much better. Because she does appear to be immune compromised and has had recurrent infections, I did send repeat blood culturesalthough obviously any seeding or persistence with gram- negative infections is quite rare. Given that, I feel comfortable allowing the patient to go home (and she wants to go home) and we will bring her back should she have persistent bacteremia and warrant further work-upagain given how unlikely this is. We will treat for 14 days with ertapenem. Given the recurrent infections, we will have her see urology and immunology as an outpatient. Migraineimproved lovenox DVT proph otherwise as above Resident Activity Tracking Resident Involvement: Resident Care Provided Care Provided: Adult Hospital Medicine
--- NOTE | 2022-12-31 12:47 | Billing Data ---
Date of Service December 31, 2022 Coding Level of Care Code 03034 IN/OBS DISCH 30 MIN/LESS
[2022-12-31] MEDS ORDERED: ERTAPENEM SODIUM 1,000 MG in SYRINGE 0 ML IV SCH ×2 (15:00→18:00)
== END 2022-12-31 16:48 | disposition home or self-care (01) | DRG 872 ==
LOC: ED 13:39 → 2W 17:56 → SUATTDRO 17:56 → 2W 19:30

== ENCOUNTER 2023-03-27 01:31 | Inpatient (IN) ==
[2023-03-27] MEDS ORDERED: KETOROLAC 30 MG/ML VIAL IV ONE (02:00)
[2023-03-27] MEDS ORDERED: SODIUM CHLORIDE 0.9% 1000ML 1,000 ML IV SCH (02:00)
[2023-03-27] MEDS ORDERED: ONDANSETRON INJ 2 MG/ML 2 ML VIAL IV STA (02:00)
--- NOTE | 2023-03-27 02:00 | Emergency Department Note ---
Impression & Plan Acute UTI, Hypoglycemia Admit to the [facility] ED Provider Note NAME: THUAN ANGEL AGE: 68 SEX: F ARRIVES VIA: Walk-In INFORMANT: Patient ED PROVIDER(S): Lorna Bell DO CHIEF COMPLAINT: Fever/vomiting; back pain PLAN: Disposition: Admit to the [facility] Condition: Fair MEDICAL DECISION MAKING: This is a 68-year-old female patient with history of diabetes/insulin pump who presents to the emergency department fever, vomiting, and back pain. Patient has a long history of recurrent bladder infections and kidney infection. Patient presents to the ER with a fever and tachycardia. Blood sugar upon arrival was less than 50. Patient was given some food to eat. Septic work-up was performed. Lactate and procalcitonin were normal. White blood cell count was greater than 17,000. Urinalysis appeared to be infected. Patient was bolused with IV normal saline solution. She was moderately hypoglycemic and was given oral foods for intake. She remained hemodynamically stable. She describes diffuse back pain and body aches along with persistent nausea and was given a dose of IV Toradol and IV Zofran. I did review multiple previous urine cultures. Blood cultures were obtained and urine will be sent for culture. The patient was started on IV piperacillin/tazobactam as her urine had previously been sensitive to this. I discussed the case with the [facility] and they will evaluate for further management. After further discussion with the patient, she tells me that after her last admission to the hospital, she quickly developed a second UTI and required daily MTU treatment with IV antibiotics Triage Nursing notes reviewed and agree with them. External medical records were reviewed including previous admissions to the hospital and urine cultures. Vital Signs: reviewed and remarkable for tachycardia and fever Differential diagnosis: Sepsis, pyelonephritis, cystitis, dehydration, DKA ER treatment provided: Cardiac monitoring Twelve-lead EKG IV normal saline bolus IV Toradol IV Zofran IV piperacillin/tazobactam Diagnostics interpreted by me: ECG: Normal sinus rhythm at a rate of [address] segment elevation or signs of ischemia. There is some T wave flattening in the inferior and lateral leads. Cardiac Monitoring: Sinus tachycardia at a rate of 112 Laboratory studies: See below Imaging studies: As per my independent interpretation Portable chest x-ray: No acute pulmonary infiltrates or consolidation to suggest pneumonia. HPI: 68/F arrives for evaluation of fever, vomiting, back pain. Patient has a history of recurrent and frequent urinary tract infections. The patient is a diabetic. Blood sugar readings have been high. Patient describes profuse vomiting, diffuse lower back pain and fevers. PAST MEDICAL HISTORY:See Below PAST SURGICAL HISTORY:See Below FAMILY HISTORY:See Below SOCIAL HISTORY:See Below HOME MEDICATIONS:See list ALLERGIES:See list VITALS:See Below PHYSICAL EXAMINATION: HEENT: Head - normocephalic and atraumatic. Pupils are equal, round, and reactive to light. Extraocular eye muscles are intact, and sclera are anicteric. Nose - moist nasal mucosa without discharge. Mouth -dry buccal mucosa. Oropharynx is nonerythematous and there is no tonsillar exudate or edema noted. Neck: Supple; no cervical lymphadenopathy or thyromegaly Heart: Tachycardic rate and rhythm. There is a normal S1 and S2 with no murmurs, clicks, or gallops appreciated. Lungs: Clear to auscultation bilaterally with no wheezes, rales, or rhonchi. Abdomen: Soft, completely nontender, nondistended, with good bowel sounds. There are no palpable pulsatile masses or hepatosplenomegaly. There is no guarding, rigidity, or rebound noted. Extremities: No evidence of cyanosis, clubbing, or edema. There are easily palpable peripheral pulses. Skin: Hot and dry with good turgor and no rashes. Back: Bilateral CVA tenderness ED COURSE: Times/Reassessments: 145: Patient was evaluated in room C8. A complete history and physical was performed. An IV lock was initiated and labs were drawn as above. A septic protocol was performed. An order was placed for continuous cardiac monitoring. The patient was in a sinus tachycardia at a rate of 112. A twelve-lead EKG EKG was obtained. BSG showed a blood sugar near 40. She was given oral foods to eat. Patient was bolused with a liter of normal saline solution. She was given a dose of IV Zofran and IV Toradol. COVID testing was performed and was negative. Portable chest x-ray was performed. Patient was started on IV piperac illin/tazobactam. Blood sugar was rechecked and found to be 119. I discussed the case with the [facility] Hospitalist and they will evaluate for further management. Lorna Bell DO Past Med/Surg History Medical History (Updated 03/27/23 @ 08:31 by Lorna Bell DO) Abdominal pain Age related osteoporosis Possible, prescribed Fosomax Anemia Bilateral hip joint arthritis CAD (coronary artery disease) Moderate non-obstructive CAD per 2019 cardiac cath COVID-19 Diabetic retinopathy associated with type 1 diabetes mellitus Per records, pt denies E coli bacteremia Elevated LFTs Encounter for pre-operative examination Encounter for pre-operative examination Fever Gastroparesis Headache History of COVID-19 08/2021 Hyperlipidemia Hypothyroidism Infection due to ESBL-producing Escherichia coli RLS (restless legs syndrome) SARS-CoV-2 positive Sphincter of Oddi dysfunction Type 1 diabetes mellitus, uncontrolled + insulin pump Urinary tract infection Surgical History History of biliary stent insertion Since removed History of cholecystectomy History of total left knee replacement Hx of cardiac cath 2019 > no stents S/P ERCP ERCP (09/27/21): Grade 1 view, MAC#3, ETT 7.0 at [facility]. No issues noted per post-op anesthesia progress note. Status post right hip replacement Right DEE (12/22/20): SAB- L3 at [facility]. No issues noted per post-op anesthesia progress note. 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 Finance Required: No Beliefs That Will Affect Care: None marital status: / Current Living Situation: Alone Current Living Situation Comment: Live at home with son and grandaughter Feels Safe at Home: Yes Safety Concerns: Feels Safe At This Time Assistive Devices: Walker Allergies Allergies Allergy/AdvReac Type Severity Reaction Status Date / Time Sulfa (Sulfonamide Allergy Intermediate Hives Verified 03/27/23 02:25 Antibiotics) methenamine Allergy Unknown Unknown Verified 03/27/23 02:26 Home Meds Home Medications Medication Instructions Recorded Confirmed cholecalciferol (vitamin D3) 50 50 mcg PO QAM 05/21/20 03/27/23 mcg (2,000 unit) capsule (Vitamin D3) alendronate 70 mg tablet 70 mg PO WK 09/27/21 03/27/23 subcutaneous insulin pump (t:slim 11/13/21 03/26/23 X2 Basal-IQ Insulin Pump) acetaminophen 500 mg capsule 1,000 mg PO TID PRN Pain 06/26/22 03/27/23 aspirin 81 mg tablet,delayed 81 mg PO DAILY 06/26/22 03/27/23 release (Raymond Low Dose Aspirin) [id number] 250 1 tab PO Q6H PRN Headache 12/28/22 03/27/23 mg-250 mg-65 mg tablet (Excedrin Migraine) insulin glargine 100 unit/mL (3 See Rx Instructions .Route .COMPLEX 12/28/22 03/27/23 mL) subcutaneous pen (Lantus Solostar U-100 Insulin) cranberry extract 425 mg capsule 425 mg PO DAILY 01/15/23 03/27/23 Previous Rx's Medication Instructions Recorded Novolog FlexPen U-100 Insulin 100 See Rx Instructions subcut TID #30 05/05/22 unit/mL (3 mL) subcutaneous mL (insulin aspart U-100) OneTouch Ultra Test (blood sugar #100 ea 05/05/22 diagnostic) pen needle, diabetic 32 gauge x #50 ea 12/10/2232" (BD Shira 2nd Gen Pen Needle) gabapentin 100 mg capsule 100 mg PO TID #90 caps 12/25/22 ibuprofen 800 mg tablet 800 mg PO Q8H PRN pain #90 tabs 12/25/22 levothyroxine 137 mcg tablet 137 mcg PO QAM #90 tabs 12/25/22 losartan 25 mg tablet 25 mg PO DAILY #60 tabs 12/25/22 ondansetron HCl 4 mg tablet 4 mg PO Q6 PRN nausea #20 tabs 12/25/22 pantoprazole 40 mg tablet,delayed 40 mg PO DAILY #90 tabs 12/25/22 release rosuvastatin 10 mg tablet 10 mg PO DAILY #30 tabs 12/25/22 insulin lispro 100 unit/mL See Rx Instructions subcut 03/17/23 subcutaneous solution (Humalog .COMPLEX #50 mL U-100 Insulin) Results & Data (ED) Vital Signs Vital Signs - 24 hr 03/27/23 01:39 03/27/23 02:10 03/27/23 02:43 Temperature 37.8 C H Temperature Source Oral Pulse Rate 112 H 94 H Pulse Rate [Left Brachial] 90 Pulse Rate from SpO2 Sensor 94 H Pulse Rhythm Regular Pulse Rhythm [Left Brachial] Regular Pulse Strength Normal Pulse Strength [Left Brachial] Normal Respiratory Rate 22 20 Respiratory Effort / Characteristics Non-Labored Spontaneous Non-Labored Spontaneous Respiratory Depth Normal Normal Respiratory Pattern Regular Regular Blood Pressure 137/72 Blood Pressure [Left Arm] 121/78 Blood Pressure Mean 93 Blood Pressure Mean [Left Arm] 92 Blood Pressure Position Sitting Blood Pressure Position [Left Arm] Lying Pulse Oximetry 94 94 97 Oxygen Delivery Method Room Air Room Air Sepsis Recent Fever Within 48 Hours Yes Sepsis New/Unexplained Change in Mental Status N/A Sepsis Action Taken by Nursing No Action Required 03/27/23 02:50 03/27/23 03:00 03/27/23 03:03 Temperature Temperature Source Pulse Rate 78 85 94 H Pulse Rate [Left Brachial] Pulse Rate from SpO2 Sensor 82 86 93 H Pulse Rhythm Pulse Rhythm [Left Brachial] Pulse Strength Pulse Strength [Left Brachial] Respiratory Rate 0 L 31 H Respiratory Effort / Characteristics Respiratory Depth Respiratory Pattern Blood Pressure Blood Pressure [Left Arm] Blood Pressure Mean Blood Pressure Mean [Left Arm] Blood Pressure Position Blood Pressure Position [Left Arm] Pulse Oximetry 97 95 95 Oxygen Delivery Method Sepsis Recent Fever Within 48 Hours Sepsis New/Unexplained Change in Mental Status Sepsis Action Taken by Nursing 03/27/23 03:03 03/27/23 03:10 03/27/23 03:20 Temperature Temperature Source Pulse Rate 92 H 85 Pulse Rate [Left Brachial] Pulse Rate from SpO2 Sensor 93 H 85 Pulse Rhythm Pulse Rhythm [Left Brachial] Pulse Strength Pulse Strength [Left Brachial] Respiratory Rate 31 H Respiratory Effort / Characteristics Respiratory Depth Respiratory Pattern Blood Pressure 121/78 Blood Pressure [Left Arm] Blood Pressure Mean 95 Blood Pressure Mean [Left Arm] Blood Pressure Position Blood Pressure Position [Left Arm] Pulse Oximetry 94 94 Oxygen Delivery Method Sepsis Recent Fever Within 48 Hours Sepsis New/Unexplained Change in Mental Status Sepsis Action Taken by Nursing 03/27/23 03:30 03/27/23 03:30 03/27/23 03:40 Temperature Temperature Source Pulse Rate 87 84 Pulse Rate [Left Brachial] Pulse Rate from SpO2 Sensor 86 84 Pulse Rhythm Pulse Rhythm [Left Brachial] Pulse Strength Pulse Strength [Left Brachial] Respiratory Rate Respiratory Effort / Characteristics Respiratory Depth Respiratory Pattern Blood Pressure 139/64 Blood Pressure [Left Arm] Blood Pressure Mean 86 Blood Pressure Mean [Left Arm] Blood Pressure Position Blood Pressure Position [Left Arm] Pulse Oximetry 93 94 Oxygen Delivery Method Sepsis Recent Fever Within 48 Hours Sepsis New/Unexplained Change in Mental Status Sepsis Action Taken by Nursing 03/27/23 03:50 03/27/23 04:26 03/27/23 04:30 Temperature Temperature Source Pulse Rate 88 89 Pulse Rate [Left Brachial] Pulse Rate from SpO2 Sensor 86 88 Pulse Rhythm Pulse Rhythm [Left Brachial] Pulse Strength Pulse Strength [Left Brachial] Respiratory Rate 13 Respiratory Effort / Characteristics Respiratory Depth Respiratory Pattern Blood Pressure 162/65 H Blood Pressure [Left Arm] Blood Pressure Mean 101 Blood Pressure Mean [Left Arm] Blood Pressure Position Blood Pressure Position [Left Arm] Pulse Oximetry 92 94 Oxygen Delivery Method Sepsis Recent Fever Within 48 Hours Sepsis New/Unexplained Change in Mental Status Sepsis Action Taken by Nursing 03/27/23 04:30 03/27/23 04:40 03/27/23 04:50 Temperature Temperature Source Pulse Rate 85 80 77 Pulse Rate [Left Brachial] Pulse Rate from SpO2 Sensor 85 80 77 Pulse Rhythm Pulse Rhythm [Left Brachial] Pulse Strength Pulse Strength [Left Brachial] Respiratory Rate 19 16 15 Respiratory Effort / Characteristics Respiratory Depth Respiratory Pattern Blood Pressure Blood Pressure [Left Arm] Blood Pressure Mean Blood Pressure Mean [Left Arm] Blood Pressure Position Blood Pressure Position [Left Arm] Pulse Oximetry 94 94 94 Oxygen Delivery Method Sepsis Recent Fever Within 48 Hours Sepsis New/Unexplained Change in Mental Status Sepsis Action Taken by Nursing 03/27/23 05:00 03/27/23 05:00 03/27/23 05:10 Temperature Temperature Source Pulse Rate 78 78 Pulse Rate [Left Brachial] Pulse Rate from SpO2 Sensor 79 77 Pulse Rhythm Pulse Rhythm [Left Brachial] Pulse Strength Pulse Strength [Left Brachial] Respiratory Rate 15 19 Respiratory Effort / Characteristics Respiratory Depth Respiratory Pattern Blood Pressure 132/58 L Blood Pressure [Left Arm] Blood Pressure Mean 87 Blood Pressure Mean [Left Arm] Blood Pressure Position Blood Pressure Position [Left Arm] Pulse Oximetry 94 93 Oxygen Delivery Method Sepsis Recent Fever Within 48 Hours Sepsis New/Unexplained Change in Mental Status Sepsis Action Taken by Nursing Laboratory Data 03/27/23 02:39 03/27/23 02:39 Lab Results 03/27/23 03/27/23 03/27/23 Range/Units 02:29 02:33 02:39 WBC 17.02 H (4.8-10.8) K/ul RBC 3.56 L (4.20-5.40) M/uL Hgb 10.3 L (12.0-16.0) g/dl Hct 31.3 L (37.0-47.0) % MCV 87.9 (80.0-100.0) fL MCH 28.9 (25.0-34.0) pg MCHC 32.9 (32.0-36.0) g/dL RDW Std Deviation 43.6 (36.4-46.3) fL RDW Coeff of Kandy 13.4 (11.5-14.5) % Plt Count 215 (130-400) K/uL MPV 10.4 (9.4-12.4) fL Immature Gran % (Auto) 0.6 % Neut % (Auto) 86.8 % Lymph % (Auto) 5.9 % Bee % (Auto) 6.5 % Eos % (Auto) 0.0 % Baso % (Auto) 0.2 % Neut # (Auto) 14.77 H (1.40-6.50) K/uL Lymph # (Auto) 1.01 L (1.2-3.4) K/uL Bee # (Auto) 1.10 H (0.11-0.59) K/uL Eos # (Auto) 0.00 (0-0.50) K/uL Baso # (Auto) 0.04 (0-0.2) K/uL Immature Gran # (Auto) 0.10 (0.01-0.20) K/uL Sodium (136-145) mmol/L Potassium (3.5-5.1) mmol/L Chloride (98-107) mmol/L Carbon Dioxide (21-32) mmol/L Anion Gap (3-11) BUN (6-23) mg/dl Creatinine (0.6-1.2) mg/dl Est Cr Clr Drug Dosing ml/min Est GFR ( Amer) ml/min Est GFR (Non-Af Amer) ml/min BUN/Creatinine Ratio (10-20) Glucose (70-99(Fasting)) mg/dl POC Glucose 49 L* 50 L* (70-99) mg/dl Lactate (0.4-2.0) mmol/L Calcium (8.6-10.3) mg/dl Magnesium (1.7-2.4) mg/dl Total Bilirubin (0.2-1.0) mg/dl Direct Bilirubin (0-0.2) mg/dl AST (13-39) U/L ALT (7-52) U/L Alkaline Phosphatase (34-104) U/L Troponin I High Sens (0-14) pg/ml Total Protein (6.0-8.3) gm/dl Albumin (3.4-5.0) gm/dl Procalcitonin (0-0.5) ng/ml 03/27/23 03/27/23 03/27/23 Range/Units 02:39 02:39 02:39 WBC (4.8-10.8) K/ul RBC (4.20-5.40) M/uL Hgb (12.0-16.0) g/dl Hct (37.0-47.0) % MCV (80.0-100.0) fL MCH (25.0-34.0) pg MCHC (32.0-36.0) g/dL RDW Std Deviation (36.4-46.3) fL RDW Coeff of Kandy (11.5-14.5) % Plt Count (130-400) K/uL MPV (9.4-12.4) fL Immature Gran % (Auto) % Neut % (Auto) % Lymph % (Auto) % Bee % (Auto) % Eos % (Auto) % Baso % (Auto) % Neut # (Auto) (1.40-6.50) K/uL Lymph # (Auto) (1.2-3.4) K/uL Bee # (Auto) (0.11-0.59) K/uL Eos # (Auto) (0-0.50) K/uL Baso # (Auto) (0-0.2) K/uL Immature Gran # (Auto) (0.01-0.20) K/uL Sodium 138 (136-145) mmol/L Potassium 3.5 D (3.5-5.1) mmol/L Chloride 107 (98-107) mmol/L Carbon Dioxide 24 (21-32) mmol/L Anion Gap 7 (3-11) BUN 14 (6-23) mg/dl Creatinine 0.80 (0.6-1.2) mg/dl Est Cr Clr Drug Dosing 67.9 ml/min Est GFR ( Amer) 89.0 ml/min Est GFR (Non-Af Amer) 76.8 ml/min BUN/Creatinine Ratio 17.5 (10-20) Glucose 42 L* (70-99(Fasting)) mg/dl POC Glucose (70-99) mg/dl Lactate 0.9 (0.4-2.0) mmol/L Calcium 9.4 (8.6-10.3) mg/dl Magnesium 1.7 (1.7-2.4) mg/dl Total Bilirubin 0.3 (0.2-1.0) mg/dl Direct Bilirubin 0.1 (0-0.2) mg/dl AST 17 (13-39) U/L ALT 21 (7-52) U/L Alkaline Phosphatase 63 (34-104) U/L Troponin I High Sens 10.3 (0-14) pg/ml Total Protein 6.9 (6.0-8.3) gm/dl Albumin 4.1 (3.4-5.0) gm/dl Procalcitonin 0.08 (0-0.5) ng/ml 03/27/23 03/27/23 Range/Units 03:28 04:06 WBC (4.8-10.8) K/ul RBC (4.20-5.40) M/uL Hgb (12.0-16.0) g/dl Hct (37.0-47.0) % MCV (80.0-100.0) fL MCH (25.0-34.0) pg MCHC (32.0-36.0) g/dL RDW Std Deviation (36.4-46.3) fL RDW Coeff of Kandy (11.5-14.5) % Plt Count (130-400) K/uL MPV (9.4-12.4) fL Immature Gran % (Auto) % Neut % (Auto) % Lymph % (Auto) % Bee % (Auto) % Eos % (Auto) % Baso % (Auto) % Neut # (Auto) (1.40-6.50) K/uL Lymph # (Auto) (1.2-3.4) K/uL Bee # (Auto) (0.11-0.59) K/uL Eos # (Auto) (0-0.50) K/uL Baso # (Auto) (0-0.2) K/uL Immature Gran # (Auto) (0.01-0.20) K/uL Sodium (136-145) mmol/L Potassium (3.5-5.1) mmol/L Chloride (98-107) mmol/L Carbon Dioxide (21-32) mmol/L Anion Gap (3-11) BUN (6-23) mg/dl Creatinine (0.6-1.2) mg/dl Est Cr Clr Drug Dosing ml/min Est GFR ( Amer) ml/min Est GFR (Non-Af Amer) ml/min BUN/Creatinine Ratio (10-20) Glucose (70-99(Fasting)) mg/dl POC Glucose 119 H (70-99) mg/dl Lactate (0.4-2.0) mmol/L Calcium (8.6-10.3) mg/dl Magnesium (1.7-2.4) mg/dl Total Bilirubin (0.2-1.0) mg/dl Direct Bilirubin (0-0.2) mg/dl AST (13-39) U/L ALT (7-52) U/L Alkaline Phosphatase (34-104) U/L Troponin I High Sens 13.2 (0-14) pg/ml Total Protein (6.0-8.3) gm/dl Albumin (3.4-5.0) gm/dl Procalcitonin (0-0.5) ng/ml Administered Medications Sodium Chloride (Nss 1000ml) 1,000 mls @ 125 mls/hr IV .Q8H [facility] Stop: 04/26/23 06:29 Last Admin: 03/27/23 06:46 Dose: 125 mls/hr Documented By: ALB Levothyroxine Sodium (Levothyroxine Sodium 137 Mcg Tablet) 137 mcg PO [facility] Stop: 04/26/23 06:29 Last Admin: 03/27/23 07:07 Dose: 137 mcg Documented By: MYLES Discontinued Medications Acetaminophen (Acetaminophen 500 Mg Tab) 1,000 mg PO NOW STA Stop: 03/27/23 03:35 Last Admin: 03/27/23 04:14 Dose: 1,000 mg Documented By: TU Sodium Chloride (Nss 1000ml) 1,000 mls @ 999 mls/hr IV .Q1H1M [facility] Stop: 03/27/23 03:00 Last Infusion: 03/27/23 03:57 Dose: 0 mls/hr Documented By: Admin: 03/27/23 02:55 Dose: 999 mls/hr Documented By: TU Piperacillin Sod/Tazobactam Sod (Zosyn) 4.5 gm in 120 mls @ 240 mls/hr IV NOW ONE Stop: 03/27/23 04:47 Last Infusion: 03/27/23 05:09 Dose: 0 mls/hr Documented By: Admin: 03/27/23 04:31 Dose: 240 mls/hr Documented By: TU Sodium Chloride (Nss) 500 mls @ 125 mls/hr IV .Q4H [facility] Stop: 04/26/23 04:29 Last Infusion: 03/27/23 06:58 Dose: 0 mls/hr Documented By: Admin: 03/27/23 04:31 Dose: 125 mls/hr Documented By: TU Ketorolac Tromethamine (Ketorolac 30 Mg/Ml Vial) 30 mg IV NOW ONE Stop: 03/27/23 02:01 Last Admin: 03/27/23 02:56 Dose: 30 mg Documented By: TU Ondansetron HCl (Ondansetron Inj 2 Mg/Ml 2 Ml Vial) 4 mg IV NOW STA Stop: 03/27/23 02:01 Last Admin: 03/27/23 02:55 Dose: 4 mg Documented By: TU Imaging Data Radiologist's Impression: Chest X-Ray 03/27/23 01:55 XR chest 1V portable CLINICAL HISTORY: Sepsis. COMPARISON STUDY: Chest CT March 07, 2021. Chest radiograph March 02, 2023. FINDINGS: Lung volumes are normal. Lungs are clear. There is no pneumothorax or pleural effusion. Cardiac size is normal. Mediastinal contours are normal. There is no evidence for pulmonary edema. IMPRESSION: No acute cardiopulmonary findings. ACT 112: Negative or not required by law. Electronically signed by: Wes Ramirez M.D. 03/27/2023 6:26 AM Discharge Plan Visit Data Chief Complaint: Fever Stated Complaint: VOMITING, FEVER, BACK PAIN ED Provider: Lorna Bell Discharge Problem: Acute UTI, Hypoglycemia Discharge Instructions Interventions: ED Discharge Assessment Last Done: 03/27/23 06:11
[2023-03-27 03:03] LABS: Basophils # (auto) 0.04 K/uL (0-0.2); Basophils % (auto) 0.2 %; Hematocrit (blood only) 31.3 % (37.0-47.0); Hemoglobin 10.3 g/dl (12.0-16.0); Immature Granulocytes % (auto) 0.6 %; Lymphocytes # (auto) 1.01 K/uL (1.2-3.4); Lymphocytes % (auto) 5.9 %; Mean Corpuscular Hemoglobin 28.9 pg (25.0-34.0); Mean Corpuscular Hgb Conc 32.9 g/dL (32.0-36.0); Mean Corpuscular Volume 87.9 fL (80.0-100.0); Mean Platelet Volume 10.4 fL (9.4-12.4); Monocytes % (auto) 6.5 %; Neutrophils # (auto) 14.77 K/uL (1.40-6.50); Neutrophils % (auto) 86.8 %; Platelet Count 215 K/uL (130-400); RDW Coefficient of Variation 13.4 % (11.5-14.5); RDW Standard Deviation 43.6 fL (36.4-46.3); Red Blood Count 3.56 M/uL (4.20-5.40); White Blood Count 17.02 K/ul (4.8-10.8)
[2023-03-27 03:25] LABS: Albumin Level 4.1 gm/dl (3.4-5.0); BUN Creatinine Ratio 17.5 (10-20); Bilirubin Direct 0.1 mg/dl (0-0.2); Bilirubin,Total 0.3 mg/dl (0.2-1.0); Calcium 9.4 mg/dl (8.6-10.3); Creatinine Clr Calc Pharmacy 67.9 ml/min; Est GFR (Non-African American) 76.8 ml/min; Magnesium 1.7 mg/dl (1.7-2.4); Potassium 3.5 mmol/L (3.5-5.1); Total Protein 6.9 gm/dl (6.0-8.3); Troponin I High Sensitivity 10.3 pg/ml (0-14)
[2023-03-27 03:25] LABS: Appearance Urine Cloudy (Clear); Bacteria Urine Automated 4+ (Negative); Bilirubin Urine Negative (Negative); Blood Urine Negative (Negative); Color Urine Yellow; Glucose Urine UA Negative (Negative); Ketones Urine Negative (Negative); Leukocyte Esterase Urine 3+ (Negative); Nitrite Urine Positive (Negative); Protein Urine Trace (Negative); RBC Urine Automated 0-4 /hpf (0-4); Specific Gravity Urine 1.017 (1.000-1.030); Urobilinogen Urine Negative (Negative); WBC Urine Automated >30 /hpf (0-5); pH Urine 7.5 (4.5-7.5)
[2023-03-27] MEDS ORDERED: ACETAMINOPHEN 500 MG TAB PO STA (03:34)
[2023-03-27] MEDS ORDERED: PIPERACILLIN/TAZOBACTAM 4.5 GM/120 ML BAG IV ONE (04:18)
[2023-03-27] MEDS ORDERED: SODIUM CHLORIDE 0.9% 500 ML IV SCH (04:30)
--- NOTE | 2023-03-27 04:41 | History & Physical Report ---
Date of Service March 27, 2023 Assessment & Plan (1) Sepsis: Plan: 67 yo female with PMHx of DM1, CAD, osteoporosis, migraines, hypothyroidism, HTN, HLD, GERD, and recurrent UTI presents with acute illness. #Urosepsis #Frequent UTIs -presented with few hours of fevers, chills, vomiting. Meets 3/4 SIRS (tachycardia, fever, leukocytosis). UA appears infectious which is likely source as she has had this several times in the past. Lactate wnl. Procal wnl. -CXR unremarkable -urine and blood cx pending -received 2L NSS in ED -received zosyn x1 in ED. Will continue this for now as previous micro susceptible to this. -follows with immunology and urology in the outpatient setting for this. She is soon to establish with ID. #DM1 #Neuropathy -she is with insulin pump, ACHS checks -cont. gabapentin #HTN -cont. losartan #Hypothyroidism -cont. levothyroxine #CAD -cont. asa, losartan #GERD -cont. pantoprazole #HLD -cont. statin #Osteoporosis -on alendronate qweekly, will hold while here DVT ppx: Lovenox FEN/GI: DM1 Code Status: DNR/DNI Dispo: med tele (2) Hypertension: (3) Hypothyroidism: (4) Migraine: (5) Type 1 diabetes mellitus: (6) Recurrent urinary tract infection: (7) Diabetic neuropathy associated with type 1 diabetes mellitus: (8) Mixed hyperlipidemia: (9) Osteoporosis: (10) GERD (gastroesophageal reflux disease): History of Present Illness Chief Complaint: fever, chills, vomiting Primary Care Provider: Manasa Galan, 67 yo female with PMHx of DM1, CAD, osteoporosis, migraines, hypothyroidism, HTN, HLD, GERD, and recurrent UTI presents with acute illness. Earlier today patient had sudden onset fever, chills, vomiting. Also with bilateral mid back pain, nausea, and headache. Denies chest pain, sob, cough, congestion, abd pain, constipation, diarrhea, dysuria, changes in urinary frequency. She has a h/o fo frequent ESBL UTIs. Follows with urology, immunology, and soon ID for this. She was hospitalized a few months ago for similar presentation. Allergies Allergy/AdvReac Type Severity Reaction Status Date / Time Sulfa (Sulfonamide Allergy Intermediate Hives Verified 03/27/23 02:25 Antibiotics) methenamine Allergy Unknown Unknown Verified 03/27/23 02:26 Home Medications Medication Instructions Recorded Confirmed Type cholecalciferol (vitamin D3) 50 50 mcg PO QAM 05/21/20 03/27/23 History mcg (2,000 unit) capsule (Vitamin D3) alendronate 70 mg tablet 70 mg PO WK 09/27/21 03/27/23 History subcutaneous insulin pump (t:slim 11/13/21 03/26/23 History X2 Basal-IQ Insulin Pump) Novolog FlexPen U-100 Insulin 100 See Rx Instructions subcut TID #30 05/05/22 03/27/23 Rx unit/mL (3 mL) subcutaneous mL (insulin aspart U-100) OneTouch Ultra Test (blood sugar #100 ea 05/05/22 03/26/23 Rx diagnostic) acetaminophen 500 mg capsule 1,000 mg PO TID PRN Pain 06/26/22 03/27/23 History aspirin 81 mg tablet,delayed 81 mg PO DAILY 06/26/22 03/27/23 History release (Raymond Low Dose Aspirin) pen needle, diabetic 32 gauge x #50 ea 12/10/22 03/26/23 Rx 5/32" (BD Shira 2nd Gen Pen Needle) gabapentin 100 mg capsule 100 mg PO TID #90 caps 12/25/22 03/27/23 Rx ibuprofen 800 mg tablet 800 mg PO Q8H PRN pain #90 tabs 12/25/22 03/27/23 Rx levothyroxine 137 mcg tablet 137 mcg PO QAM #90 tabs 12/25/22 03/27/23 Rx losartan 25 mg tablet 25 mg PO DAILY #60 tabs 12/25/22 03/27/23 Rx ondansetron HCl 4 mg tablet 4 mg PO Q6 PRN nausea #20 tabs 12/25/22 03/27/23 Rx pantoprazole 40 mg tablet,delayed 40 mg PO DAILY #90 tabs 12/25/22 03/27/23 Rx release rosuvastatin 10 mg tablet 10 mg PO DAILY #30 tabs 12/25/22 03/27/23 Rx sofydqc-dnfmagowebcxf-evijexoc 250 1 tab PO Q6H PRN Headache 12/28/22 03/27/23 History mg-250 mg-65 mg tablet (Excedrin Migraine) insulin glargine 100 unit/mL (3 See Rx Instructions .Route .COMPLEX 12/28/22 03/27/23 History mL) subcutaneous pen (Lantus Solostar U-100 Insulin) cranberry extract 425 mg capsule 425 mg PO DAILY 01/15/23 03/27/23 History insulin lispro 100 unit/mL See Rx Instructions subcut 03/17/23 03/27/23 Rx subcutaneous solution (Humalog .COMPLEX #50 mL U-100 Insulin) Past Med/Surg History Medical History (Updated 03/27/23 @ 08:31 by Lorna Bell DO) Abdominal pain Age related osteoporosis Possible, prescribed Fosomax Anemia Bilateral hip joint arthritis CAD (coronary artery disease) Moderate non-obstructive CAD per 2019 cardiac cath COVID- Diabetic retinopathy associated with type 1 diabetes mellitus Per records, pt denies E coli bacteremia Elevated LFTs Encounter for pre-operative examination Encounter for pre-operative examination Fever Gastroparesis Headache History of COVID-19 08/2021 Hyperlipidemia Hypothyroidism 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 No issues noted per post-op anesthesia progress note. Status post right hip replacement Right DEE (12/22/20): SAB- L3 at [facility]. No issues noted per post-op anesthesia progress note. Family History Mother Family history of diabetes mellitus Other No significant family history Social History Smoking Status: Former smoker Tobacco Type: Cigarettes Cigarettes Per Day: "less than a pack per day"; Second Hand Exposure: No; Do You Dip or Chew Tobacco: No; Hx Alcohol Use: No Hx Substance Use: No Preferred Language: Bur[place]ian Communication Ability: Effective Visual Impairment: No Limitations Hearing Ability: Normal [employer] Rolls Required: No Beliefs That Will Affect Care: None marital status: / Current Living Situation: Alone Current Living Situation Comment: Live at home with son and grandauheidyter Feels Safe at Home: Yes Safety Concerns: Feels Safe At This Time Assistive Devices: Walker Review of Systems Review of Systems: All systems reviewed & are unremarkable except as noted in HPI & below Physical Exam Physical Exam: Constitutional: in no acute distress, pleasant and normal affect, intact memory. AOx3. Vitals as above. HEENT: No scleral injection or discharge. Moist mucous membranes. Neck: Supple without lymphadenopathy or thyromegaly. Trachea midline. Lungs: Clear to auscultation bilaterally with good effort. No wheezes/rales/rhonchi. Cardiac: Regular rate and rhythm. No murmurs. Trace extremity edema. 2+ distal peripheral pulses. Abdomen: Bowel sounds present. Soft, nontender, and nondistended.No guarding. No hepatosplenomegaly. +CVA tenderness bilaterally. MSK: No cyanosis or clubbing. Extremities motor strength 5/5. Skin: No abnormal rashes, warm, dry. Neurologic: no focal deficits Results & Data Results & Data Vital Signs (Past 12 Hours) Vital Signs Temp Pulse Pulse Resp BP BP Pulse Ox 03/27/23 02:10 90 20 121/78 94 03/27/23 01:39 37.8 C H 112 H 22 137/72 94 O2 Del Method 03/27/23 02:10 Room Air 03/27/23 01:39 Room Air Laboratory Results Laboratory Results WBC 17.02 K/ul (4.8-10.8) H 03/27/23 02:39 RBC 3.56 M/uL (4.20-5.40) L 03/27/23 02:39 Hgb 10.3 g/dl (12.0-16.0) L 03/27/23 02:39 Hct 31.3 % (37.0-47.0) L 03/27/23 02:39 MCV 87.9 fL (80.0-100.0) 03/27/23 02:39 MCH 28.9 pg (25.0-34.0) 03/27/23 02:39 MCHC 32.9 g/dL (32.0-36.0) 03/27/23 02:39 RDW Std Deviation 43.6 fL (36.4-46.3) 03/27/23 02:39 RDW Coeff of Kandy 13.4 % (11.5-14.5) 03/27/23 02:39 Plt Count 215 K/uL (130-400) 03/27/23 02:39 MPV 10.4 fL (9.4-12.4) 03/27/23 02:39 Immature Gran % (Auto) 0.6 % 03/27/23 02:39 Neut % (Auto) 86.8 % 03/27/23 02:39 Lymph % (Auto) 5.9 % 03/27/23 02:39 [place] % (Auto) 6.5 % 03/27/23 02:39 Eos % (Auto) 0.0 % 03/27/23 02:39 Baso % (Auto) 0.2 % 03/27/23 02:39 Neut # (Auto) 14.77 K/uL (1.40-6.50) H 03/27/23 02:39 Lymph # (Auto) 1.01 K/uL (1.2-3.4) L 03/27/23 02:39 [place] # (Auto) 1.10 K/uL (0.11-0.59) H 03/27/23 02:39 Eos # (Auto) 0.00 K/uL (0-0.50) 03/27/23 02:39 Baso # (Auto) 0.04 K/uL (0-0.2) 03/27/23 02:39 Immature Gran # (Auto) 0.10 K/uL (0.01-0.20) 03/27/23 02:39 Sodium 138 mmol/L (136-145) 03/27/23 02:39 Potassium 3.5 mmol/L (3.5-5.1) D 03/27/23 02:39 Chloride 107 mmol/L (98-107) 03/27/23 02:39 Carbon Dioxide 24 mmol/L (21-32) 03/27/23 02:39 Anion Gap 7 (3-11) 03/27/23 02:39 BUN 14 mg/dl (6-23) 03/27/23 02:39 Creatinine 0.80 mg/dl (0.6-1.2) 03/27/23 02:39 Est Cr Clr Drug Dosing 67.9 ml/min 03/27/23 02:39 Est GFR ( Amer) 89.0 ml/min 03/27/23 02:39 Est GFR (Non-Af Amer) 76.8 ml/min 03/27/23 02:39 BUN/Creatinine Ratio 17.5 (10-20) 03/27/23 02:39 Glucose 42 mg/dl (70-99(Fasting)) L* 03/27/23 02:39 POC Glucose 119 mg/dl (70-99) H 03/27/23 03:28 Lactate 0.9 mmol/L (0.4-2.0) 03/27/23 02:39 Calcium 9.4 mg/dl (8.6-10.3) 03/27/23 02:39 Magnesium 1.7 mg/dl (1.7-2.4) 03/27/23 02:39 Total Bilirubin 0.3 mg/dl (0.2-1.0) 03/27/23 02:39 Direct Bilirubin 0.1 mg/dl (0-0.2) 03/27/23 02:39 AST 17 U/L (13-39) 03/27/23 02:39 ALT 21 U/L (7-52) 03/27/23 02:39 Alkaline Phosphatase 63 U/L (34-104) 03/27/23 02:39 Troponin I High Sens 10.3 pg/ml (0-14) 03/27/23 02:39 Total Protein 6.9 gm/dl (6.0-8.3) 03/27/23 02:39 Albumin 4.1 gm/dl (3.4-5.0) 03/27/23 02:39 Procalcitonin 0.08 ng/ml (0-0.5) 03/27/23 02:39 Urine Color Yellow 03/27/23 Unknown Urine Appearance Cloudy (Clear) A 03/27/23 Unknown Urine pH 7.5 (4.5-7.5) 03/27/23 Unknown Ur Specific Kaiser 1.017 (1.000-1.030) 03/27/23 Unknown Urine Protein Trace (Negative) H 03/27/23 Unknown Urine Glucose (UA) Negative (Negative) 03/27/23 Unknown Urine Ketones Negative (Negative) 03/27/23 Unknown Urine Blood Negative (Negative) 03/27/23 Unknown Urine Nitrite Positive (Negative) A 03/27/23 Unknown Urine Bilirubin Negative (Negative) 03/27/23 Unknown Urine Urobilinogen Negative (Negative) 03/27/23 Unknown Ur Leukocyte Esterase 3+ (Negative) H 03/27/23 Unknown Urine WBC (Auto) >30 /hpf (0-5) H 03/27/23 Unknown Urine RBC (Auto) 0-4 /hpf (0-4) 03/27/23 Unknown U Hyaline Cast (Auto) 1-5 /lpf (0-5) 03/27/23 Unknown U Epithel Cells (Auto) 5-10 /lpf (0-5) H 03/27/23 Unknown Urine Bacteria (Auto) 4+ (Negative) H 03/27/23 Unknown SARS-CoV-2, RNA, NAAT NEGATIVE (NEGATIVE) 03/27/23 Unknown Supervising Physician Co-Signing Physician Notes Attending addendum: I have physically seen this patient, have supervised the medical residents activities, and agree with the H&P unless as otherwise noted. Assessment and Plan: Sepsis due to UTI- History of recurrent ESBL infection, and was recently discharged after hospitalization from 12/28-12/31/2022 on 2 weeks of IV ertapenem Status post 2 L normal saline in ED Follow urine culture and sensitivity Since this has been a recurrent issue, and patient had just completed 2 weeks of IV ertapenem, would suggest patient be placed on double cover antibiotics, in this case continue Zosyn IV with add tobramycin IV Patient is to be seen by ID, and will defer to them at this point Diabetes mellitus- Patient is alert enough to use her insulin pump, and will use it per hospital protocol with notifying nurses CAD/hypertension- Continue aspirin, losartan GERD- Continue pantoprazole Remaining orders and notations as noted Resident Activity Tracking Resident Involvement: Resident Care Provided Care Provided: Adult Hospital Medicine (2) Hypertension Hypertension type: primary hypertension Qualified Code(s): I10 - Essential (primary) hypertension
[2023-03-27] MEDS ORDERED: CARBOHYDRATES FOR HYPOGLYCEMIA PO PRN (06:11)
[2023-03-27] MEDS ORDERED: DEXTROSE 50% 50 ML SYRINGE IV PRN (06:11)
[2023-03-27] MEDS ORDERED: GLUCAGON FOR INJ 1 MG VIAL SQ PRN (06:11)
[2023-03-27] MEDS ORDERED: GLUCOSE 40% GEL 15 GM TUBE PO PRN (06:11)
[2023-03-27] MEDS ORDERED: GLUCOSE 10 TAB/TUBE PO PRN (06:11)
[2023-03-27] MEDS ORDERED: POLYETHYLENE (MIRALAX) 17 GM PACK PO PRN (06:11)
--- NOTE | 2023-03-27 06:28 | XRay Report ---
XR chest 1V portable CLINICAL HISTORY: Sepsis. COMPARISON STUDY: Chest CT March 07, 2021. Chest radiograph March 02, 2023. FINDINGS: Lung volumes are normal. Lungs are clear. There is no pneumothorax or pleural effusion. Car diac size is normal. Mediastinal contours are normal. There is no evidence for pulmonary edema. IMPRESSION: No acute cardiopulmonary findings. ACT 112: Negative or not required by law. Electronically signed by: Wes Ramirez M.D. 03/27/2023 6:26 AM
[2023-03-27] MEDS: SODIUM CHLORIDE 0.9% 1000ML 1,000 ML IV SCH ×2 (06:46→14:18)
[2023-03-27] MEDS: LEVOTHYROXINE SODIUM 137 MCG TABLET PO SCH (07:07)
[2023-03-27] MEDS: LOSARTAN POTASSIUM 25 MG TAB PO SCH (09:13)
[2023-03-27] MEDS: GABAPENTIN 100 MG CAP PO SCH ×3 (09:13→20:54)
[2023-03-27] MEDS: ROSUVASTATIN CALCIUM 10 MG TAB PO SCH (09:13)
[2023-03-27] MEDS: ENOXAPARIN INJ 40 MG/0.4 ML SYR SQ SCH (09:13)
[2023-03-27] MEDS: PANTOprazole 40 MG TAB PO SCH (09:13)
[2023-03-27] MEDS: ASPIRIN 81 MG ECTAB PO SCH (09:13)
[2023-03-27] MEDS: PIPERACILLIN/TAZOBACTAM 4.5 GM in DEXTROSE 5% 100 ML IV SCH ×2 (09:26→20:56)
[2023-03-27] MEDS: ACETAMINOPHEN 325 MG TAB PO PRN ×2 (11:19→18:04)
--- NOTE | 2023-03-27 11:34 | Hospitalist Progress Note ---
Date of Service March 27, 2023 Assessment & Plan (1) Sepsis: Plan: 67 yo female with PMHx of DM1, CAD, osteoporosis, migraines, hypothyroidism, HTN, HLD, GERD, and recurrent UTI admitted for UTI, concern for urosepsis. #Urosepsis #Frequent UTIs -UA appears infectious - likely source as she has had this several times in the past. Lactate wnl. Procal wnl. WBC 17.02 today. -CXR unremarkable -urine and blood cx pending -Continue zosyn - previous urine cultures had sensitivity to zosyn - Pain control with Toradol and Tylenol -follows with immunology and urology in the outpatient setting for this. She is soon to establish with ID. #DM1 #Neuropathy -insulin pump, ACHS checks -cont. gabapentin #HTN -cont. losartan #Hypothyroidism -cont. levothyroxine #CAD -cont. asa, losartan #GERD -cont. pantoprazole #HLD -cont. statin #Osteoporosis -on alendronate qweekly, will hold while here DVT ppx: Lovenox FEN/GI: DM1 Code Status: DNR/DNI Dispo: med tele (2) Hypertension: (3) Hypothyroidism: (4) Migraine: (5) Type 1 diabetes mellitus: (6) Recurrent urinary tract infection: (7) Diabetic neuropathy associated with type 1 diabetes mellitus: (8) Mixed hyperlipidemia: (9) Osteoporosis: (10) GERD (gastroesophageal reflux disease): Admission and Anticipated Discharge Date Admission Date: March 27, 2023 Supervising Physician Co-Signing Physician Notes I personally examined the patient and verified all martinez points of history and exam, discussed case, and agree with decision making with Dr Rodríguez feels terrible, aching all over, headache. Vitals noted, in general she is laying in bed appears ill, but nontoxic, breathing unlabored no accessory muscle use good effort. Skin shows no rashes no pallor or icterus. CBC, BMP, vitals noted, cultures still pending, prior cultures predominantly showing ESBL recurrent sepsispresumed urinary source, continue Zosyn pending cultures and sensitivities, would not be surprised if her blood cultures are positive, if she continues to spike fevers would repeat blood cultures, but right now everything is pending, prior cultures have been sensitive to Zosyn. Increase supportive carechange fluids to LR, give magnesium, Phenergan as needed, Toradol and change Tylenol to scheduled. Immunologic and urologic work-up as far as repeated sepsis seems to have had little yield, her diabetes is somewhat uncontrolled but certainly that alone does not seem to explain this. We will need to continue to pursue other avenues as far as her repeated infection risk. DVT prophylaxisLovenox Subjective Pt is a 67 yo female with PMHx of DM1, CAD, osteoporosis, migraines, hypothyroidism, HTN, HLD, GERD, and recurrent UTI presents with sudden onset fever, chills, vomiting. ED workup confirmed UTI. At time of evaluation, patient is in a lot of pain, rates it 10/10 and throughout her whole body. Indicates ketorolac given earlier was helpful. She notes that she does not feel any urinary symptoms, denies dysuria, hematuria, and urinary frequency. No isolated flank pain. Endorses current chills, feels f everish. Pt has h/o chronic UTIs, was previously referred to urology, immunology, and ID, states that no one has been able to tell her why she continues to get recurrent infections. Review of Systems Review of Systems: All systems reviewed & are unremarkable except as noted in HPI & below Physical Exam Constitutional: + ill appearing and + in distress Respiratory: normal respiratory effort, lungs clear to auscultation Cardiovascular: RRR, no murmur, no edema Gastrointestinal (Abdomen): normal bowel sounds, soft, nontender, no hepatosplenomegaly Skin: no rashes, warm and dry Genitourinary: - CVA tenderness Results & Data Results & Data Vital Signs (Past 12 Hours) Vital Signs Temp Pulse Pulse Resp BP BP Pulse Ox 03/27/23 07:08 70 18 127/62 97 03/27/23 07:06 72 03/27/23 07:03 76 20 127/62 96 03/27/23 07:02 03/27/23 06:00 37.1 C 16 119/61 96 03/27/23 06:37 70 03/27/23 05:10 78 19 93 03/27/23 05:00 78 15 94 03/27/23 05:00 132/58 L 03/27/23 04:50 77 15 94 03/27/23 04:40 80 16 94 03/27/23 04:30 85 19 94 03/27/23 04:30 162/65 H 03/27/23 04:26 89 13 94 03/27/23 03:50 88 92 03/27/23 03:40 84 94 03/27/23 03:30 87 93 03/27/23 03:30 139/64 03/27/23 03:20 85 94 03/27/23 03:10 92 H 31 H 94 03/27/23 03:03 121/78 03/27/23 03:03 94 H 31 H 95 03/27/23 03:00 85 0 L 95 03/27/23 02:50 78 97 03/27/23 02:43 94 H 97 03/27/23 02:10 90 20 121/78 94 03/27/23 01:39 37.8 C H 112 H 22 137/72 94 Pulse Ox O2 Del Method O2 Del Method 03/27/23 07:08 Room Air 03/27/23 07:06 03/27/23 07:03 Room Air 03/27/23 07:02 97 Room Air 03/27/23 06:00 Room Air 03/27/23 06:37 03/27/23 05:10 03/27/23 05:00 03/27/23 05:00 03/27/23 04:50 03/27/23 04:40 03/27/23 04:30 03/27/23 04:30 03/27/23 04:26 03/27/23 03:50 03/27/23 03:40 03/27/23 03:30 03/27/23 03:30 03/27/23 03:20 03/27/23 03:10 03/27/23 03:03 03/27/23 03:03 03/27/23 03:00 03/27/23 02:50 03/27/23 02:43 03/27/23 02:10 Room Air 03/27/23 01:39 Room Air Resident Activity Tracking Resident Involvement: Resident Care Provided Care Provided: Adult Hospital Medicine (2) Hypertension Hypertension type: primary hypertension Qualified Code(s): I10 - Essential (primary) hypertension
[2023-03-27] MEDS ORDERED: INSULIN, Rapid-Acting PUMP SCH (14:00)
[2023-03-27] MEDS ORDERED: INSULIN ASPART 100 UNITS/ML VIAL SC PRN (14:15)
[2023-03-27] MEDS: ONDANSETRON 4 MG OD TAB PO PRN (15:42)
[2023-03-27] MEDS: KETOROLAC TROMETHAMINE 15 MG/ML VIAL IV PRN (18:04)
[2023-03-27] MEDS ORDERED: PROMETHAZINE HCL 25 MG/20 ML UDP PO PRN (18:33)
[2023-03-27] MEDS: ACETAMINOPHEN 325 MG TAB PO SCH (20:54)
[2023-03-27] MEDS: MAGNESIUM OXIDE 400 MG TAB PO SCH (20:54)
[2023-03-27] MEDS: LACTATED RINGER'S 1,000 ML IV SCH (22:05)
[2023-03-27] MEDS ORDERED: Nursing to Pharmacy Communication SCH (23:30)
--- NOTE | 2023-03-27 23:50 | Billing Data ---
Date of Service March 27, 2023 Coding Level of Care Code 79655 INT INP/OBS CARE
--- NOTE | 2023-03-27 23:56 | Electrocardiogram Report ---
Test Reason : Blood Pressure : / mmHG Vent. Rate : 091 BPM Atrial Rate : 091 BPM P-R Int : 122 ms QRS Dur : 090 ms QT Int : 336 ms P-R-T Axes : 055 043 022 degrees QTc Int : 413 ms Normal sinus rhythm Nonspecific T wave abnormality Abnormal ECG When compared with ECG of 02-MAR-2023 13:47, Nonspecific T wave abnormality, worse in Inferior leads Nonspecific T wave abnormality now evident in Lateral leads Confirmed by James Barbosa ([id number]) on 03/27/2023 11:56:15 PM Referred By: REFERRED SELF Confirmed By:James Barbosa
[2023-03-28] MEDS: KETOROLAC TROMETHAMINE 15 MG/ML VIAL IV PRN ×2 (02:38→12:24)
[2023-03-28] MEDS: LEVOTHYROXINE SODIUM 137 MCG TABLET PO SCH (06:21)
[2023-03-28] MEDS: LACTATED RINGER'S 1,000 ML IV SCH ×3 (06:21→20:15)
--- NOTE | 2023-03-28 06:36 | Hospitalist Progress Note ---
Date of Service March 28, 2023 Assessment & Plan (1) Sepsis: Plan: 67 yo female with PMHx of DM1, CAD, osteoporosis, migraines, hypothyroidism, HTN, HLD, GERD, and recurrent UTI admitted for UTI, concern for urosepsis. #Urosepsis? #Frequent UTIs Urine Cx gram negative bacilli UA appears infectious - likely source as she has had this several times in the past.WBC 17.02-->12.74 today. CXR unremarkable Blood cultures negative x2@24hrs Continue zosyn - previous urine cultures had sensitivity to zosyn Pain control with Toradol and Tylenol follows with immunology and urology in the outpatient setting for this. She is soon to establish with ID. #DM1 #Neuropathy insulin pump, ACHS checks cont. gabapentin #HTN cont. losartan #Hypothyroidism cont. levothyroxine #CAD cont. asa, losartan #GERD cont. pantoprazole #HLD cont. statin #Osteoporosis on alendronate qweekly, will hold while here DVT ppx: Lovenox FEN/GI: DM1 Code Status: DNR/DNI Dispo: med tele (2) Hypertension: (3) Hypothyroidism: (4) Migraine: (5) Type 1 diabetes mellitus: (6) Recurrent urinary tract infection: (7) Diabetic neuropathy associated with type 1 diabetes mellitus: (8) Mixed hyperlipidemia: (9) Osteoporosis: (10) GERD (gastroesophageal reflux disease): Admission and Anticipated Discharge Date Admission Date: March 27, 2023 Supervising Physician Co-Signing Physician Notes I personally examined the patient and verified all martinez points of history and exam, discussed case, and agree with decision making with Dr Price feeling a good bit better, still a headache, some body aches, but better. Vitals noted, in general nad heent nc at mmm, breathing unlabored no accessory muscle use good effort. Skin shows no rashes no pallor or icterus. CBC, BMP, vitals noted, cultures still pending but showing GNR (urine), prior cultures predominantly showing ESBL recurrent sepsispresumed urinary source, continue Zosyn pending cultures and sensitivities, would not be surprised if her blood cultures are positive - but [place] NGTD, hopefully home soon. ?unclear why she has such recurrent sepsis. will continue to try to evaluate for causes/facilitate other opinions DVT prophylaxisLovenox Subjective Pt is a 67 yo female with PMHx of DM1, CAD, osteoporosis, migraines, hypothyroidism, HTN, HLD, GERD, and recurrent UTI presents with sudden onset fever, chills, vomiting admitted for UTI This AM: Resting comfortably in bed in NAD. Continues to complain of back pain that radiates to her head, not as sever as before. Toradol continues to help. She continues to deny urinary symptoms dysuria, hematuria, frequency, fever, chills. Review of Systems Review of Systems: reviewed, per HPI Physical Exam Physical Exam: General: patient resting comfortably, NAD, non-toxic in appearance, AA&O x 4, answers questions appropriately and follows commands. Skin: warm, dry HEENT: NC/AT, anicteric sclera, conjunctiva without injection, moist mucus membranes, neck supple, trachea midline, no JVD Heart: +S1/S2, regular, no m/r/g Lungs: equal air entry bilaterally, no rales/rhonchi/wheezes Abd: +BS, soft, NT/ND, no masses/organomegaly/ascites Ext: warm, no clubbing/cyanosis or edema Neuro: nonfocal, patient AA&O x 4, speech intact, no facial droop, moving all extremities on command. Results & Data Results & Data Vital Signs (Past 12 Hours) Vital Signs Temp Pulse Pulse Resp BP Pulse Ox O2 Del Method 03/28/23 04:24 36.9 C 83 18 124/69 96 Room Air 03/27/23 22:01 79 03/27/23 22:38 37.1 C 73 16 114/66 95 Room Air 03/27/23 20:26 37.2 C 90 18 133/70 94 Room Air Laboratory Results Abnormal lab results 03/27/23 03/27/23 Range/Units 11:01 21:05 POC Glucose 185 H 212 H (70-99) mg/dl Resident Activity Tracking Resident Involvement: Resident Care Provided Care Provided: Adult Hospital Medicine (2) Hypertension Hypertension type: primary hypertension Qualified Code(s): I10 - Essential (primary) hypertension
[2023-03-28 06:37] LABS: Basophils # (auto) 0.03 K/uL (0-0.2); Basophils % (auto) 0.2 %; Hematocrit (blood only) 28.1 % (37.0-47.0); Hemoglobin 9.2 g/dl (12.0-16.0); Immature Granulocytes # (auto) 0.06 K/uL (0.01-0.20); Immature Granulocytes % (auto) 0.5 %; Lymphocytes # (auto) 2.09 K/uL (1.2-3.4); Lymphocytes % (auto) 16.4 %; Mean Corpuscular Hemoglobin 28.9 pg (25.0-34.0); Mean Corpuscular Hgb Conc 32.7 g/dL (32.0-36.0); Mean Corpuscular Volume 88.4 fL (80.0-100.0); Monocytes # (auto) 0.81 K/uL (0.11-0.59); Monocytes % (auto) 6.4 %; Neutrophils # (auto) 9.75 K/uL (1.40-6.50); Neutrophils % (auto) 76.5 %; Platelet Count 143 K/uL (130-400); RDW Coefficient of Variation 13.7 % (11.5-14.5); RDW Standard Deviation 44.7 fL (36.4-46.3); Red Blood Count 3.18 M/uL (4.20-5.40); White Blood Count 12.74 K/ul (4.8-10.8)
[2023-03-28 06:40] LABS: Albumin Globulin Ratio 1.3 (0.9-2); Albumin Level 3.2 gm/dl (3.4-5.0); BUN Creatinine Ratio 17.9 (10-20); Bilirubin,Total 0.4 mg/dl (0.2-1.0); Calcium 8.1 mg/dl (8.6-10.3); Creatinine Clr Calc Pharmacy 81.1 ml/min; Est GFR (African American) 106.2 ml/min; Est GFR (Non-African American) 91.6 ml/min; Globulin 2.4 gm/dl (2.5-4.0); Potassium 3.4 mmol/L (3.5-5.1); Total Protein 5.6 gm/dl (6.0-8.3)
[2023-03-28] MEDS: PIPERACILLIN/TAZOBACTAM 4.5 GM in DEXTROSE 5% 100 ML IV SCH ×3 (07:00→22:00)
[2023-03-28] MEDS: ACETAMINOPHEN 325 MG TAB PO SCH ×4 (08:17→20:46)
[2023-03-28] MEDS: MAGNESIUM OXIDE 400 MG TAB PO SCH ×2 (08:17→20:47)
[2023-03-28] MEDS: GABAPENTIN 100 MG CAP PO SCH ×3 (08:18→20:46)
[2023-03-28] MEDS: ROSUVASTATIN CALCIUM 10 MG TAB PO SCH (08:18)
[2023-03-28] MEDS: PANTOprazole 40 MG TAB PO SCH (08:18)
[2023-03-28] MEDS: LOSARTAN POTASSIUM 25 MG TAB PO SCH (08:18)
[2023-03-28] MEDS: ASPIRIN 81 MG ECTAB PO SCH (08:18)
[2023-03-28] MEDS: ENOXAPARIN INJ 40 MG/0.4 ML SYR SQ SCH (09:25)
[2023-03-28] MEDS ORDERED: POTASSIUM CHLORIDE CRTAB 20 MEQ TABCR PO ONE (09:48)
--- NOTE | 2023-03-28 17:08 | Billing Data ---
Date of Service March 28, 2023 Coding Level of Care Code 22922 SUB INP/OBS CARE MIN
[2023-03-29] MEDS: LACTATED RINGER'S 1,000 ML IV SCH ×2 (02:01→13:52)
[2023-03-29] MEDS: KETOROLAC TROMETHAMINE 15 MG/ML VIAL IV PRN ×2 (05:32→13:57)
[2023-03-29] MEDS: ONDANSETRON 4 MG OD TAB PO PRN (05:32)
[2023-03-29] MEDS: LEVOTHYROXINE SODIUM 137 MCG TABLET PO SCH (05:37)
[2023-03-29] MEDS: PIPERACILLIN/TAZOBACTAM 4.5 GM in DEXTROSE 5% 100 ML IV SCH (05:59)
[2023-03-29 07:39] LABS: Basophils # (auto) 0.02 K/uL (0-0.2); Basophils % (auto) 0.2 %; Hemoglobin 9.1 g/dl (12.0-16.0); Immature Granulocytes # (auto) 0.03 K/uL (0.01-0.20); Immature Granulocytes % (auto) 0.4 %; Lymphocytes # (auto) 1.37 K/uL (1.2-3.4); Lymphocytes % (auto) 16.5 %; Mean Corpuscular Hemoglobin 28.4 pg (25.0-34.0); Mean Corpuscular Hgb Conc 32.5 g/dL (32.0-36.0); Mean Corpuscular Volume 87.5 fL (80.0-100.0); Mean Platelet Volume 10.9 fL (9.4-12.4); Monocytes # (auto) 0.39 K/uL (0.11-0.59); Monocytes % (auto) 4.7 %; Neutrophils # (auto) 6.51 K/uL (1.40-6.50); Neutrophils % (auto) 78.2 %; Platelet Count 147 K/uL (130-400); RDW Coefficient of Variation 13.3 % (11.5-14.5); RDW Standard Deviation 43.3 fL (36.4-46.3); White Blood Count 8.32 K/ul (4.8-10.8)
[2023-03-29 07:54] LABS: Albumin Globulin Ratio 1.3 (0.9-2); Albumin Level 3.4 gm/dl (3.4-5.0); BUN Creatinine Ratio 12.5 (10-20); Bilirubin,Total 0.4 mg/dl (0.2-1.0); Calcium 8.8 mg/dl (8.6-10.3); Creatinine Clr Calc Pharmacy 85.1 ml/min; Est GFR (African American) 107.8 ml/min; Globulin 2.7 gm/dl (2.5-4.0); Potassium 3.8 mmol/L (3.5-5.1); Total Protein 6.1 gm/dl (6.0-8.3)
--- NOTE | 2023-03-29 08:10 | Hospitalist Progress Note ---
Date of Service March 29, 2023 Assessment & Plan (1) Sepsis: Plan: 67 yo female with PMHx of DM1, CAD, osteoporosis, migraines, hypothyroidism, HTN, HLD, GERD, and recurrent UTI admitted for UTI, concern for urosepsis. #Urosepsis? #Frequent UTIs Urine Cx ESBL, sensitivities per lab results section UA appears infectious - likely source as she has had this several times in the past.WBC 17.02-->12.74-->8.32 today. CXR unremarkable Blood cultures negative x2@48hrs Continue zosyn - previous urine cultures had sensitivity to zosyn Pain control with Toradol and Tylenol follows with immunology and urology in the outpatient setting for this. She is soon to establish with ID. #DM1 #Neuropathy insulin pump, ACHS checks cont. gabapentin #HTN cont. losartan #Hypothyroidism cont. levothyroxine #CAD cont. asa, losartan #GERD cont. pantoprazole #HLD cont. statin #Osteoporosis on alendronate qweekly, will hold while here DVT ppx: Lovenox FEN/GI: DM1 Code Status: DNR/DNI Dispo: med tele (2) Hypertension: (3) Hypothyroidism: (4) Migraine: (5) Type 1 diabetes mellitus: (6) Recurrent urinary tract infection: (7) Diabetic neuropathy associated with type 1 diabetes mellitus: (8) Mixed hyperlipidemia: (9) Osteoporosis: (10) GERD (gastroesophageal reflux disease): Admission and Anticipated Discharge Date Admission Date: March 27, 2023 Subjective Pt is a 67 yo female with PMHx of DM1, CAD, osteoporosis, migraines, hypothyroidism, HTN, HLD, GERD, and recurrent UTI presents with sudden onset fever, chills, vomiting admitted for UTI Blood cx negative @ 48hrs Urine Cx again + for ESBL, sensitivities per lab results section This AM: Resting comfortably in bed in NAD. Continues to complain of back pain that radiates to her head, not as sever as before. Toradol continues to help. She continues to deny urinary symptoms dysuria, hematuria, frequency, fever, chills. Review of Systems Review of Systems: reviewed, per HPI Physical Exam Physical Exam: General: patient resting comfortably, NAD, non-toxic in appearance, AA&O x 4, answers questions appropriately and follows commands. Skin: warm, dry HEENT: NC/AT, anicteric sclera, conjunctiva without injection, moist mucus membranes, neck supple, trachea midline, no JVD Heart: +S1/S2, regular, no m/r/g Lungs: equal air entry bilaterally, no rales/rhonchi/wheezes Abd: +BS, soft, NT/ND, no masses/organomegaly/ascites Ext: warm, no clubbing/cyanosis or edema Neuro: nonfocal, patient AA&O x 4, speech intact, no facial droop, moving all extremities on command. Results & Data Results & Data Vital Signs (Past 12 Hours) Vital Signs Temp Pulse Pulse Resp BP Pulse Ox O2 Del Method 03/29/23 06:40 36.9 C 70 20 164/80 H 95 Room Air 03/29/23 05:46 89 167/85 H 03/29/23 02:30 37.0 C 72 18 146/77 H 97 Room Air 03/28/23 23:00 36.6 C 74 18 163/79 H 98 Room Air 03/28/23 22:28 94 H Laboratory Results ANTIBIOTIC ORG 1 Amoxacillin/Clavulanate S Ampicillin R Ampicillin/Sulbactam R Cefazolin R Cefepime R Cefotaxime R Ceftriaxone R Ciprofloxacin R Ertapenem S Gentamicin S Levofloxacin R Meropenem S Nitrofurantoin S Piperacillin/Tazobactam S Tobramycin S Trimethoprim/Sulfamethoxazole S (2) Hypertension Hypertension type: primary hypertension Qualified Code(s): I10 - Essential (primary) hypertension
[2023-03-29] MEDS ORDERED: amLODIPine BESYLATE 5 MG TAB PO SCH (09:00)
[2023-03-29] MEDS: GABAPENTIN 100 MG CAP PO SCH ×2 (09:06→13:53)
[2023-03-29] MEDS: PANTOprazole 40 MG TAB PO SCH (09:06)
[2023-03-29] MEDS: LOSARTAN POTASSIUM 25 MG TAB PO SCH (09:07)
[2023-03-29] MEDS: ENOXAPARIN INJ 40 MG/0.4 ML SYR SQ SCH (09:07)
[2023-03-29] MEDS: ACETAMINOPHEN 325 MG TAB PO SCH ×2 (09:07→13:52)
[2023-03-29] MEDS: MAGNESIUM OXIDE 400 MG TAB PO SCH (09:07)
[2023-03-29] MEDS: ROSUVASTATIN CALCIUM 10 MG TAB PO SCH (09:07)
[2023-03-29] MEDS: ASPIRIN 81 MG ECTAB PO SCH (09:07)
[2023-03-29] MEDS ORDERED: ERTAPENEM SODIUM 1,000 MG in SYRINGE 0 ML IV SCH (12:00)
--- NOTE | 2023-03-29 14:22 | Discharge Summary ---
Date of Service March 29, 2023 Admission HPI Per Admitting Provider 67 yo female with PMHx of DM1, CAD, osteoporosis, migraines, hypothyroidism, HTN, HLD, GERD, and recurrent UTI presents with acute illness. Earlier today patient had sudden onset fever, chills, vomiting. Also with bilateral mid back pain, nausea, and headache. Denies chest pain, sob, cough, congestion, abd pain, constipation, diarrhea, dysuria, changes in urinary frequency. She has a h/o fo frequent ESBL UTIs. Follows with urology, immunology, and soon ID for this. She was hospitalized a few months ago for similar presentation. Admission Exam Per Admitting Provider Constitutional: in no acute distress, pleasant and normal affect, intact memory. AOx3. Vitals as above. HEENT: No scleral injection or discharge. Moist mucous membranes. Neck: Supple without lymphadenopathy or thyromegaly. Trachea midline. Lungs: Clear to auscultation bilaterally with good effort. No wheezes/rales/rhonchi. Cardiac: Regular rate and rhythm. No murmurs. Trace extremity edema. 2+ distal peripheral pulses. Abdomen: Bowel sounds present. Soft, nontender, and nondistended.No guarding. No hepatosplenomegaly. +CVA tenderness bilaterally. MSK: No cyanosis or clubbing. Extremities motor strength 5/5. Skin: No abnormal rashes, warm, dry. Neurologic: no focal deficits Principal Diagnosis ESBL E. coli UTI Discharge Exam General: patient resting comfortably, NAD, non-toxic in appearance, AA&O x 4, answers questions appropriately and follows commands. Skin: warm, dry, intact HEENT: NC/AT, anicteric sclera, conjunctiva without injection, moist mucus membranes, trachea midline, no thyromegaly, no JVD Heart: +S1/S2, regular, no m/r/g Lungs: equal air entry bilaterally, no rales/rhonchi/wheezes Abd: +BS, soft, NT/ND, no masses/organomegaly/ascites Ext: warm, no clubbing/cyanosis or edema Neuro: nonfocal, patient AA&O x 4, speech intact, no facial droop, moving all extremities on command. Discharge Data Allergies Allergy/AdvReac Type Severity Reaction Status Date / Time Sulfa (Sulfonamide Allergy Intermediate Hives Verified 03/27/23 02:25 Antibiotics) methenamine Allergy Unknown Unknown Verified 03/27/23 02:26 Consultations 03/27/23 04:21 ED Decision to Admit Stat Hospital Course (1) Sepsis: (2) Hypertension: (3) Hypothyroidism: (4) Migraine: (5) Type 1 diabetes mellitus: (6) Recurrent urinary tract infection: (7) Diabetic neuropathy associated with type 1 diabetes mellitus: (8) Mixed hyperlipidemia: (9) Osteoporosis: (10) GERD (gastroesophageal reflux disease): Plan 67 yo female with PMHx of DM1, CAD, osteoporosis, migraines, hypothyroidism, HTN, HLD, GERD, and recurrent UTI admitted for UTI, concern for urosepsis. #Frequent UTIs Urine Cx gram negative bacilli UA appears infectious - likely source as she has had this several times in the past.WBC 17.02-->12.74 today. CXR unremarkable Blood cultures negative x2@48hrs Given sensitivities and patient preference will discharge with arrangement for her to have 4 further doses of 1 gram Ertapenem daily Pain control with Toradol and Tylenol follows with immunology and urology in the outpatient setting for this. She is soon to establish with ID. #DM1 #Neuropathy insulin pump, ACHS checks cont. gabapentin #HTN cont. losartan #Hypothyroidism cont. levothyroxine #CAD cont. asa, losartan #GERD cont. pantoprazole #HLD cont. statin #Osteoporosis on alendronate qweekly, will hold while here Total Time Total Time Spent Total Time Spent (In Minutes): <30 Discharge Plan Discharge Items Patient Disposition: Home - Self-Care Reason For Visit: FEVER, CHILLS, VOMITING Discharge Diagnosis: ESBL UTI Activity: As commented below Activity Comment: Resume activity as tolerated Non-emergency contact: Primary Care Provider Call non-emergency contact if: you have any medication questions, your symptoms worsen, your pain is not controlled and your temperature is above 101.5 Follow-up/Referrals: Manasa Galan, [Primary Care Provider] - (PLEASE CALL YOUR PRIMARY CARE PROVIDER TO SCHEDULE A HOSPITAL DISCHARGE FOLLOW-UP APPOINTMENT WITHIN 7-10 DAYS. ) Diet: Regular Addtl Attending Provider Instructions: You were admitted for UTI and found to have an"ESBL E. coli infection. Blood and urine cultures were drawn before your antibiotics were started. After two days you were found to have a similar infection to the one you had before. This time, however, your blood stream was not infected. You received 2 doses of an antibiotic called zosyn, which is a broad spectrum antibiotic. On the 3rd day we identified that ertapenem was a more specific and more appropriate antibiotic for you to receive. You received one dose of this in the hospital and will require 4 more doses, once per day, once you are discharged. Your last dose will be on 04/02/2023. It is very important that you receive these antibiotics for the full course. A discharge summary will be sent to your primary care physician to ensure continuity of care. Please bring this discharge summary with you to your next office appointment so that your provider can review it at that time. Medications: Your medication list has been reviewed and reconciled upon discharge to ensure accuracy and continuity of care. An updated list of all your medications is included with your hospital discharge paperwork. Please review this list closely and make note of any changes to your medications. Follow up appointments: - Make a follow up appointment with your PCP within the next week. It is very important that you follow up with them shortly after discharge from the hospital. - Keep all of your follow up appointments as already scheduled. If you cannot make an appointment, notify your provider. CONTACT YOUR PRIMARY CARE PROVIDER if you experience any of the following: -[_] - Difficulty following your treatment plan - Difficulty taking any of your medications CALL 911 OR GO TO THE EMERGENCY DEPARTMENT if you experience any of the following: - [related to reason for admission] - Sudden, severe abdominal pain or nausea/vomiting - Severe chest pain or chest pain that radiates to your jaw or arm - Sudden, severe shortness of breath or difficulty breathing Pending Studies at Discharge: No Stand-Alone Forms: [facility] Cylex, Smoking Cessation Medications and DC Order Prescriptions: New amlodipine [Norvasc] 5 mg Tablet 2.5 mg PO QAM Qty: 30 0RF Continued (DME) OneTouch Ultra Test Strip See Rx Instructions .ROUTE .MEDSUPPLY Qty: 100 3RF Rx Instructions: test 1 time daily insulin aspart U-100 [Novolog FlexPen U-100 Insulin] 100 unit/mL (3 mL) insulin pen See Rx Instructions subcut TID Qty: 30 2RF Rx Instructions: in case of pump failure TDD 0 units subcut three times a day (DME) pen needle, diabetic [BD Shira 2nd Gen Pen Needle] 32 gauge x 5/32" needle See Rx Instructions miscellaneous .MEDSUPPLY Qty: 50 3RF Rx Instructions: Use a new pen needle each night insulin lispro [Humalog U-100 Insulin] 100 unit/mL solution See Rx Instructions subcut .COMPLEX Qty: 50 3RF Rx Instructions: subcutaneously continuous infusion via insulin pump; TDD 50 units. cranberry extract 425 mg capsule 425 mg PO DAILY Rx Instructions: administer with a meal (DME) t:slim X2 Basal-IQ Insulin Chucking Lathe Operator Misc See Rx Instructions .Route Rx Instructions: As directed rosuvastatin 10 mg tablet 10 mg PO DAILY Qty: 30 3RF gabapentin 100 mg capsule 100 mg PO TID Qty: 90 2RF levothyroxine 137 mcg tablet 137 mcg PO QAM Qty: 90 1RF losartan 25 mg tablet 25 mg PO DAILY Qty: 60 12RF ondansetron HCl 4 mg tablet 4 mg PO Q6 PRN (Reason: nausea) Qty: 20 1RF pantoprazole 40 mg tablet,delayed release (DR/EC) 40 mg PO DAILY Qty: 90 3RF ibuprofen 800 mg tablet 800 mg PO Q8H PRN (Reason: pain) Qty: 90 3RF cholecalciferol (vitamin D3) [Vitamin D3] 50 mcg (2,000 unit) Capsule 50 mcg PO QAM alendronate 70 mg tablet 70 mg PO WK Patient Comments: SUNDAYS Rx Instructions: Thursday Excedrin Migraine 250-250-65 mg Tablet 1 tab PO Q6H PRN (Reason: Headache) insulin glargine [Lantus Solostar U-100 Insulin] 100 unit/mL (3 mL) insulin pen See Rx Instructions .ROUTE .COMPLEX Rx Instructions: To be used with pump failure as her basal insulin, 14 UNITS DAILY aspirin [Raymond Low Dose Aspirin] 81 mg tablet,delayed release (DR/EC) 81 mg PO DAILY acetaminophen 500 mg capsule 1,000 mg PO TID PRN (Reason: Pain) Discharge Orders: Discharge Order (Routine); Ordered 03/29/23 Ordered By: Maxim Price Admission Data Admit Date/Time: 03/27/23 05:26 Attending Provider: Remberto Ellis Admit Provider: Db Pope Primary Care Provider: Manasa Galan Other Providers: Yonas Sanon Other Interventions: Discharge Summary Assessment (RN) Last Done: 03/29/23 14:41 Supervising Physician Co-Signing Physician Notes I personally examined the patient and verified all martinez points of history and exam, discussed case, and agree with decision making with Dr Price feeling better wants to go home - discussed options for abx w ESBL - she prefers ertapenem. Vitals noted, in general nad heent nc at mmm, breathing unlabored no accessory muscle use good effort. Skin shows no rashes no pallor or icterus. urine culture noted recurrent sepsispresumed urinary source, home, IV ertapenem DVT prophylaxisLovenox Resident Activity Tracking Resident Involvement: Resident Care Provided Care Provided: Adult Hospital Medicine
--- NOTE | 2023-03-29 18:15 | Billing Data ---
Date of Service March 29, 2023 Coding Level of Care Code 00464 IN/OBS DISCH 30 MIN/LESS
== END 2023-03-29 18:58 | disposition home or self-care (01) | DRG 871 ==
LOC: ED 01:31 → EDINP 05:26 → SUATTDRO 05:26 → 2N 06:11

== ENCOUNTER 2024-10-04 20:12 | Observation (INO) ==
[2024-10-04 20:40] LABS: POC Urine Bilirubin Negative (Negative); POC Urine Blood Trace (Negative); POC Urine Glucose 250 (Normal); POC Urine Ketones Negative (Negative); POC Urine Leukocytes Trace (Negative); POC Urine Nitrite Positive (Negative); POC Urine Protein Trace (Negative); POC Urine Urobilinogen Normal (Normal); POC Urine pH 5 (4.5-7.5)
[2024-10-04 20:48] LABS: Basophils # (auto) 0.03 K/uL (0.00-0.20); Basophils % (auto) 0.3 %; Hematocrit (blood only) 34.9 % (37.0-47.0); Hemoglobin 11.6 g/dl (12.0-16.0); Immature Granulocytes # (auto) 0.02 K/uL (0.01-0.20); Immature Granulocytes % (auto) 0.2 %; Lymphocytes # (auto) 0.76 K/uL (1.20-3.40); Lymphocytes % (auto) 7.9 %; Mean Corpuscular Hemoglobin 29.8 pg (25.0-34.0); Mean Corpuscular Hgb Conc 33.2 g/dL (32.0-36.0); Mean Corpuscular Volume 89.7 fL (80.0-100.0); Mean Platelet Volume 10.5 fL (9.4-12.4); Monocytes # (auto) 0.38 K/uL (0.11-0.59); Monocytes % (auto) 3.9 %; Neutrophils # (auto) 8.49 K/uL (1.40-6.50); Neutrophils % (auto) 87.7 %; Platelet Count 153 K/uL (130-400); RDW Standard Deviation 42.3 fL (36.4-46.3); Red Blood Count 3.89 M/uL (4.20-5.40); White Blood Count 9.68 K/ul (4.8-10.8)
[2024-10-04 20:52] LABS: Appearance Urine Cloudy (Clear); Bacteria Urine Automated 4+ (None Seen); Bilirubin Urine Negative (Negative); Blood Urine 1+ (Negative); Color Urine Yellow; Epithelial Cell Urine Auto 0-2 /hpf (0-2); Glucose Urine UA 1+ (Negative); Ketones Urine Negative (Negative); Leukocyte Esterase Urine 2+ (Negative); Nitrite Urine Positive (Negative); Protein Urine 1+ (Negative); Specific Gravity Urine 1.019 (1.000-1.030); Urobilinogen Urine Negative (Negative); WBC Urine Automated >50 /hpf (0-5); pH Urine 5.5 (4.5-7.5)
[2024-10-04 21:07] LABS: Albumin Globulin Ratio 1.4 (0.9-2); Albumin Level 4.2 gm/dl (3.4-5.0); Bilirubin,Total 0.6 mg/dl (0.2-1.0); Calcium 9.6 mg/dl (8.6-10.3); Globulin 3.1 gm/dl (2.5-4.0); Potassium 3.6 mmol/L (3.5-5.1); Total Protein 7.3 gm/dl (6.0-8.3)
[2024-10-04] MEDS: SODIUM CHLORIDE 0.9% 1,000 ML IV ONE (23:40)
[2024-10-04] MEDS: ONDANSETRON INJ 2 MG/ML 2 ML VIAL IV STA (23:41)
[2024-10-04] MEDS: ERTAPENEM 1000MG 1,000 MG/10 ML SYR IV STA (23:53)
--- NOTE | 2024-10-04 23:56 | Emergency Department Note ---
Impression & Plan Acute pyelonephritis, Acute left flank pain ED Provider Note ED Provider Note NAME: THUAN ANGEL AGE:69 SEX: Female : 1955 ARRIVES VIA: Private vehicle INFORMANT: Patient ED PROVIDER(s): Helen Figueredo DO CHIEF COMPLAINT: Left flank pain, chills, urinary symptoms HPI: This is a 69-year-old female who presents emergency department due to concern for worsening left flank pain, chills, urinary symptoms, and vomiting. Patient states she first began noticing urinary symptoms on Thursday. Over the weekend she was taking Azo for her symptoms. She states yesterday she began to feel unwell with fatigue, decreased appetite. She states she began to have some mild pain in the left flank and left back. She states symptoms worsened today with accompanying vomiting and shaking chills. Patient with prior history of urinary tract infections and pyelonephritis. Patient is also diabetic. No recent trauma or change in activity. No recent change in stools. PAST MEDICAL HISTORY:See Below PAST SURGICAL HISTORY:See Below FAMILY HISTORY:See Below SOCIAL HISTORY:See Below HOME MEDICATIONS:See Below ALLERGIES:See Below VITALS:See Below PHYSICAL EXAMINATION: GENERAL: alert, ill appearing, well nourished, mild distress, non-toxic EYE EXAM: normal conjunctiva, PERRL and EOM's grossly intact OROPHARYNX: no exudate, no erythema, lips, buccal mucosa, and tongue normal and mucous membranes are moist NECK: supple, no nuchal rigidity, no adenopathy, non-tender LUNGS: Clear to auscultation. Normal chest wall mechanics, no w/r/r HEART: no murmurs, S1 normal and S2 normal ABDOMEN: abdomen soft, pain with palpation along the left lateral abdomen, normo-active bowel sounds, no masses, no rebound or guarding. BACK: Back is symmetrical on inspection and there is no deformity, no midline tenderness, positive left CVA tenderness. SKIN: no rashes, petechiae, orbruising UPPER EXTREMITIES: upper extremities are grossly normal. FROM, nml pulses b/l. LOWER EXTREMITIES: No pitting edema. FROM, nml pulses b/l. NEURO EXAM: Normal sensorium, cranial nerves II-XII grossly intact, normal speech, no facial droop,nogross weakness of arms, no gross weakness of legs. Gross sensation intact. No ataxia. Vital Signs: reviewed and remarkable Differential Diagnosis: UTI, pyelonephritis, ureterolithiasis, YUMIKO, colitis, diverticulitis, bowel obstruction, DKA, gastroparesis, musculoskeletal pain, as well as others were considered MEDICAL DECISION MAKING: This is a 69-year-old female who presents emergency department due to concern for flank pain and recent urinary symptoms. Patient with prior history of UTI as well as pyelonephritis and is concerned for recurrence. Patient noted to be tachycardic on arrival with a borderline fever. She was uncomfortable appearing. Labs drawn and sent, IV established, EKG performed at bedside interpreted by me and patient monitored on telemetry. She was started on IV fluids, urine collected, patient sent for renal ultrasound due to concern for pyelonephritis. After review of prior urine cultures, patient started on ertapenem. Blood cultures have been drawn and sent additionally. No significant leukocytosis no evidence of YUMIKO. Ultrasound reassuring and not suggestive of additional obstructive pathology. Patient given IV morphine additionally for pain. No evidence of accompanying DKA despite hyperglycemia noted on labs. Case discussed with the hospitalist team for additional evaluation and management. Consultation(s): Discussed with Dr. Sanon, [facility] hospitalist team, for additional evaluation and management. ER Treatment Provided: See below Diagnostics Interpreted By Me: -ECG: Normal sinus at 67, normal axis, normal intervals, no acute ST/T wave changes -Cardiac Monitoring: An order was placed for continuous cardiac monitoring. The monitor shows a rate of 78 with normal sinus rhythm. -Laboratory studies: As stated above and show below. -Imaging studies: Ultrasound renal: No significant hydronephrosis or nephrolithiasis Triage Nursing Note Reviewed Prior/Outside Records Reviewed-prior urine culture grew out ESBL E. coli Past Med/Surg History Problem List (Updated 10/04/24 @ 23:56 by Helen Figueredo DO) Acute left flank pain (Acute) Acute pyelonephritis (Acute) Uncontrolled type 1 diabetes mellitus with hyperglycemia High glycation index; A1c typically about 2 points higher than average blood sugar would predict History of ESBL E. coli infection Urinary tract infection GERD (gastroesophageal reflux disease) Osteoporosis Hypertension (Chronic) Hypothyroidism Nondiabetic gastroparesis (Chronic) Osteoarthritis of both hips (Chronic) Mixed hyperlipidemia (Chronic) Presence of insulin pump (Chronic) t:slim Diabetic neuropathy associated with type 1 diabetes mellitus Type 1 diabetes mellitus Medical History Recurrent pyelonephritis Recurrent urinary tract infection Pyelonephritis Hx of diabetes with ketoacidosis (~05/14/20) History of ESBL E. coli infection History of biliary stent insertion Antibiotic-resistant bacterial infection Sepsis E coli bacteremia Infection due to ESBL-producing Escherichia coli Headache Urinary tract infection Encounter for pre-operative examination Sphincter of Oddi dysfunction Gastroparesis Elevated LFTs History of COVID-19 Age related osteoporosis SARS-CoV-2 positive Anemia COVID-19 Abdominal pain Fever Encounter for pre-operative examination Bilateral hip joint arthritis RLS (restless legs syndrome) CAD (coronary artery disease) Diabetic retinopathy associated with type 1 diabetes mellitus Type 1 diabetes mellitus, uncontrolled Hyperlipidemia Surgical History Status post total hip replacement, right Status post total hip replacement, left Status post right hip replacement History of biliary stent insertion S/P ERCP Hx of cardiac cath History of total left knee replacement History of cholecystectomy Family History Mother Family history of diabetes mellitus Other No significant family history Social History Smoking Status: Former smoker Tobacco Type: Cigarettes Second Hand Exposure: No; Do You Dip or Chew Tobacco: No; Hx Alcohol Use: No Hx Substance Use: No Preferred Language: Icelandic Communication Ability: Effective Visual Impairment: No Limitations Hearing Ability: Normal [place] Required: No Beliefs That Will Affect Care: None marital status: / Current Living Situation: Family Current Living Situation Comment: son and granddaughter Feels Safe at Home: Yes Safety Concerns: Feels Safe At This Time Assistive Devices: Denture - Lower and Glasses Allergies Allergies Allergy/AdvReac Type Severity Reaction Status Date / Time Penicillins Allergy Severe Difficulty Verified 10/04/24 23:27 Breathing Sulfa (Sulfonamide Allergy Intermediate Hives Verified 07/01/24 09:47 Antibiotics) methenamine Allergy Unknown CAN'T Verified 07/01/24 09:47 REMEMBER Home Meds Home Medications Medication Instructions Recorded Confirmed cholecalciferol (vitamin D3) 50 50 mcg PO QAM 05/21/20 10/05/24 mcg (2,000 unit) capsule (Vitamin D3) alendronate 70 mg tablet 70 mg PO WK 09/27/21 10/05/24 subcutaneous insulin pump (t:slim 11/13/21 10/05/24 X2 Basal-IQ Insulin Pump) acetaminophen 500 mg capsule 1,000 mg PO Q6 PRN Pain 06/26/22 10/05/24 aspirin 81 mg tablet,delayed 81 mg PO DAILY 06/26/22 10/05/24 release (Raymond Low Dose Aspirin) [id number] 250 1 tab PO Q6H PRN Headache 12/28/22 10/05/24 mg-250 mg-65 mg tablet (Excedrin Migraine) cranberry extract 425 mg capsule 425 mg PO DAILY 01/15/23 10/05/24 rosuvastatin 20 mg tablet 20 mg PO DAILY 06/26/23 10/05/24 ropinirole 0.5 mg tablet 0.5 mg PO HS 09/25/23 10/05/24 montelukast 10 mg tablet 10 mg PO HS 10/23/23 10/05/24 amlodipine 5 mg tablet (Norvasc) 5 mg PO QAM 07/01/24 10/05/24 irbesartan 300 mg tablet 300 mg PO DAILY 07/01/24 10/05/24 meloxicam 7.5 mg tablet 7.5 mg PO DAILY 07/01/24 10/05/24 Previous Rx's Medication Instructions Recorded Novolog FlexPen U-100 Insulin 100 See Rx Instructions subcut TID #30 05/05/22 unit/mL (3 mL) subcutaneous mL (insulin aspart U-100) pen needle, diabetic 32 gauge x #50 ea 12/10/22" (BD Shira 2nd Gen Pen Needle) gabapentin 100 mg capsule 100 mg PO TID #90 caps 12/25/22 pantoprazole 40 mg tablet,delayed 40 mg PO DAILY #90 tabs 12/25/22 release acetone (urine) test (Ketostix #50 ea 04/23/23 strips) glucagon 3 mg/actuation nasal 3 mg intranasal ONCE #2 ea 04/23/23 spray (Baqsimi) ibuprofen 800 mg tablet 800 mg PO Q8H PRN pain #90 tabs 12/09/23 ondansetron HCl 4 mg tablet 4 mg PO Q6 PRN nausea #20 tabs 01/06/24 levothyroxine 125 mcg tablet 125 mcg PO QAM #90 tabs 03/25/24 OneTouch Ultra Test (blood sugar #300 ea 04/21/24 diagnostic) Novolog U-100 Insulin aspart 100 60 unit (0.6 mL) continuous 08/26/24 unit/mL subcutaneous solution subcutaneous infusion DAILY #60 mL (insulin aspart U-100) Results & Data (ED) Vital Signs Vital Signs - 24 hr 10/04/24 20:22 10/04/24 23:33 10/04/24 23:37 Temperature 37.9 C H Temperature Source Oral Pulse Rate 101 H 80 75 Pulse Rate from SpO2 Sensor 80 Pulse Rhythm Regular Pulse Strength Normal Respiratory Rate 18 20 Respiratory Effort / Characteristics Non-Labored Spontaneous Respiratory Depth Normal Respiratory Pattern Regular Blood Pressure 136/75 124/62 Blood Pressure Mean 95 81 Blood Pressure Position Sitting Pulse Oximetry 94 96 Oxygen Delivery Method Room Air Room Air Sepsis Recent Fever Within 48 Hours No Sepsis New/Unexplained Change in Mental Status N/A Sepsis Action Taken by Nursing No Action Required 10/05/24 00:03 10/05/24 00:51 Temperature Temperature Source Pulse Rate 81 73 Pulse Rate from SpO2 Sensor 79 74 Pulse Rhythm Pulse Strength Respiratory Rate 22 22 Respiratory Effort / Characteristics Respiratory Depth Respiratory Pattern Blood Pressure 128/68 125/62 Blood Pressure Mean 88 83 Blood Pressure Position Pulse Oximetry 99 93 Oxygen Delivery Method Room Air Room Air Sepsis Recent Fever Within 48 Hours Sepsis New/Unexplained Change in Mental Status Sepsis Action Taken by Nursing Laboratory Data 10/05/24 05:33 10/05/24 05:33 Lab Results 10/04/24 10/04/24 10/04/24 Range/Units 20:25 20:33 20:37 WBC 9.68 (4.8-10.8) K/ul RBC 3.89 L (4.20-5.40) M/uL Hgb 11.6 L (12.0-16.0) g/dl Hct 34.9 L (37.0-47.0) % MCV 89.7 (80.0-100.0) fL MCH 29.8 (25.0-34.0) pg MCHC 33.2 (32.0-36.0) g/dL RDW Std Deviation 42.3 (36.4-46.3) fL RDW Coeff of Kandy 13.0 (11.5-14.5) % Plt Count 153 (130-400) K/uL MPV 10.5 (9.4-12.4) fL Immature Gran % (Auto) 0.2 % Neut % (Auto) 87.7 % Lymph % (Auto) 7.9 % [place] % (Auto) 3.9 % Eos % (Auto) 0.0 % Baso % (Auto) 0.3 % Neut # (Auto) 8.49 H (1.40-6.50) K/uL Lymph # (Auto) 0.76 L (1.20-3.40) K/uL [place] # (Auto) 0.38 (0.11-0.59) K/uL Eos # (Auto) 0.00 (0.00-0.50) K/uL Baso # (Auto) 0.03 (0.00-0.20) K/uL Immature Gran # (Auto) 0.02 (0.01-0.20) K/uL Sodium 139 (136-145) mmol/L Potassium 3.6 (3.5-5.1) mmol/L Chloride 105 (98-107) mmol/L Carbon Dioxide 27 (21-32) mmol/L Anion Gap 7 (3-11) BUN 15 (6-23) mg/dl Creatinine 0.79 (0.6-1.2) mg/dl Est Cr Clr Drug Dosing 67.0 ml/min eGFR 81.93 BUN/Creatinine Ratio 19.0 (10-20) Glucose 202 H (70-99(Fasting)) mg/dl Calcium 9.6 (8.6-10.3) mg/dl Total Bilirubin 0.6 (0.2-1.0) mg/dl AST 20 (13-39) U/L ALT 23 (7-52) U/L Alkaline Phosphatase 74 (34-104) U/L Total Protein 7.3 (6.0-8.3) gm/dl Albumin 4.2 (3.4-5.0) gm/dl Globulin 3.1 (2.5-4.0) gm/dl Albumin/Globulin Ratio 1.4 (0.9-2) Procalcitonin 0.32 (0-0.5) ng/ml Urine Color Yellow Urine Appearance Cloudy A (Clear) Urine pH 5.5 (4.5-7.5) POC Urine pH 5 (4.5-7.5) Ur Specific [place] 1.019 (1.000-1.030) Urine Protein 1+ H (Negative) POC Urine Protein Trace H (Negative) Urine Glucose (UA) 1+ H (Negative) POC Ur Glucose (UA) 250 H (Normal) Urine Ketones Negative (Negative) POC Urine Ketones Negative (Negative) Urine Blood 1+ H (Negative) POC Urine Blood Trace H (Negative) Urine Nitrite Positive A (Negative) POC Urine Nitrite Positive A (Negative) Urine Bilirubin Negative (Negative) POC Urine Bilirubin Negative (Negative) Urine Urobilinogen Negative (Negative) POC Urine Urobilinogen Normal (Normal) Ur Leukocyte Esterase 2+ H (Negative) POC U Leukocyte Esteras Trace H (Negative) Urine WBC (Auto) >50 H (0-5) /hpf Urine RBC (Auto) 3-5 H (0-2) /hpf U Hyaline Cast (Auto) 3-5 H (0-2) /lpf U Epithel Cells (Auto) 0-2 (0-2) /hpf Urine Bacteria (Auto) 4+ H (None Seen) Administered Medications Acetaminophen (Acetaminophen 325 Mg Tab) 650 mg PO Q6H PRN PRN Reason: Pain or Fever Stop: 11/04/24 19:39 Last Admin: 10/05/24 20:09 Dose: 650 mg Documented By: KAN Amlodipine Besylate (Amlodipine Besylate 5 Mg Tab) [facility] [place]: 11/04/24 08:59 Last Admin: 10/05/24 07:36 Dose: 5 mg Documented By: RT Aspirin (Aspirin 81 Mg Ectab) 81 mg PO DAILY REPLACED BY [facility] Stop: 11/04/24 08:59 Last Admin: 10/05/24 07:36 Dose: 81 mg Documented By: RT Benzonatate (Benzonatate 100 Mg Capsule) 100 mg PO TID PRN PRN Reason: Cough Stop: 11/04/24 16:46 Last Admin: 10/05/24 17:17 Dose: 100 mg Documented By: RT Gabapentin (Gabapentin 100 Mg Cap) 100 mg PO TID REPLACED BY [facility] Stop: 11/04/24 08:59 Last Admin: 10/05/24 20:10 Dose: 100 mg Documented By: Admin: 10/05/24 13:35 Dose: 100 mg Documented By: Admin: 10/05/24 07:36 Dose: 100 mg Documented By: RT Acetaminophen (Ofirmev) 1,000 mg in 100 mls @ 400 mls/hr IV Q8H PRN PRN Reason: Pain Stop: 10/08/24 02:55 Last Infusion: 10/05/24 08:31 Dose: Infused Documented By: Admin: 10/05/24 07:34 Dose: 400 mls/hr Documented By: RT Ertapenem (Invanz 1000mg) 1,000 mg in 10 mls @ 2 mls/min IV Q24H [facility] Stop: 10/12/24 23:14 Last Admin: 10/05/24 23:23 Dose: 2 mls/min Documented By: MLM Levothyroxine Sodium (Levothyroxine Sodium 125 Mcg Tablet) 125 mcg PO DAILYBB [facility] Stop: 11/04/24 06:29 Last Admin: 10/05/24 05:53 Dose: 125 mcg Documented By: MJM Losartan Potassium (Losartan Potassium 50 Mg Tab) 100 mg PO DAILY [facility] Stop: 11/04/24 08:59 Last Admin: 10/05/24 07:36 Dose: 100 mg Documented By: RT Miscellaneous (Continuous Glucose Monitor) 0 each N/A ACHS [facility] Stop: 11/04/24 07:29 Last Admin: 10/05/24 20:14 Dose: Not Given Documented By: Admin: 10/05/24 17:20 Dose: 2.22 each Documented By: Admin: 10/05/24 12:21 Dose: 5.62 each Documented By: Admin: 10/05/24 08:30 Dose: 0.722 each Documented By: RT Montelukast Sodium (Montelukast Sodium 10 Mg Tablet) 10 mg PO HS [facility] Stop: 11/04/24 20:59 Last Admin: 10/05/24 20:10 Dose: 10 mg Documented By: MLM Ondansetron HCl (Ondansetron Inj 2 Mg/Ml 2 Ml Vial) 4 mg IV Q6H PRN PRN Reason: Nausea And Vomiting Stop: 11/04/24 02:55 Last Admin: 10/05/24 17:17 Dose: 4 mg Documented By: RT Pantoprazole Sodium (Pantoprazole 40 Mg Tab) 40 mg PO DAILY [facility] Stop: 11/04/24 08:59 Last Admin: 10/05/24 07:37 Dose: 40 mg Documented By: RT Polyethylene Glycol (Polyethylene (Miralax) 17 Gm Pack) 17 gm PO BID [facility] Stop: 11/04/24 20:59 Last Admin: 10/05/24 20:11 Dose: Not Given Documented By: KAN Ropinirole HCl (Ropinirole Hcl 0.25 Mg Tablet) 0.5 mg PO HS [facility] Stop: 11/04/24 20:59 Last Admin: 10/05/24 20:11 Dose: 0.5 mg Documented By: KAN Rosuvastatin Calcium (Rosuvastatin Calcium 20 Mg Tab) 20 mg PO DAILY [facility] Stop: 11/04/24 08:59 Last Admin: 10/05/24 07:36 Dose: 20 mg Documented By: RT Discontinued Medications Ertapenem (Invanz 1000mg) 1,000 mg in 10 mls @ 2 mls/min IV NOW STA Stop: 10/04/24 23:29 Last Admin: 10/04/24 23:53 Dose: 2 mls/min Documented By: BJ Sodium Chloride (Nss) 1,000 mls @ 999 mls/hr IV .Q1H1M ONE Stop: 10/05/24 00:25 Last Infusion: 10/05/24 00:51 Dose: Infused Documented By: Admin: 10/04/24 23:40 Dose: 999 mls/hr Documented By: BJ Acetaminophen (Ofirmev) 1,000 mg in 100 mls @ 400 mls/hr IV NOW STA Stop: 10/04/24 23:39 Last Infusion: 10/05/24 00:50 Dose: Infused Documented By: Admin: 10/05/24 00:03 Dose: 400 mls/hr Documented By: BJ Sodium Chloride (Nss) 1,000 mls @ 999 mls/hr IV .Q1H1M ONE Stop: 10/05/24 01:09 Last Infusion: 10/05/24 02:23 Dose: Infused Documented By: Admin: 10/05/24 00:53 Dose: 999 mls/hr Documented By: BJ Sodium Chloride (Nss) 1,000 mls @ 80 mls/hr IV .[id number] [facility] Stop: 10/06/24 01:14 Last Infusion: 10/05/24 23:23 Dose: Infused Documented By: Admin: 10/05/24 13:35 Dose: 80 mls/hr Documented By: Infusion: 10/05/24 13:35 Dose: Infused Documented By: Infusion: 10/05/24 07:37 Dose: 80 mls/hr Documented By: Admin: 10/05/24 03:22 Dose: 80 mls/hr Documented By: RENETTA Promethazine HCl (Phenergan) 12.5 mg in 50.5 mls @ 202 mls/hr IV NOW STA Stop: 10/05/24 03:29 Last Infusion: 10/05/24 04:44 Dose: Infused Documented By: Admin: 10/05/24 03:39 Dose: 202 mls/hr Documented By: RENETTA Magnesium Sulfate/Dextrose (Magnesium Sulfate / D5w) 1 gm in 100 mls @ 50 mls/hr IV Q2H [facility] Stop: 10/05/24 12:29 Last Infusion: 10/05/24 12:53 Dose: Infused Documented By: Admin: 10/05/24 10:40 Dose: 50 mls/hr Documented By: Infusion: 10/05/24 10:40 Dose: Infused Documented By: Admin: 10/05/24 08:56 Dose: 50 mls/hr Documented By: Ioversol (Optiray 320 100ml) 100 ml IV ONCE ONE Stop: 10/05/24 04:24 Last Admin: 10/05/24 04:24 Dose: 93 ml Documented By: HERIBERTO Morphine Sulfate (Morphine Sulfate 4 Mg/Ml 1 Ml Carp\\Vial) 4 mg IV NOW STA Stop: 10/05/24 00:10 Last Admin: 10/05/24 00:52 Dose: 4 mg Documented By: BJ Ondansetron HCl (Ondansetron Inj 2 Mg/Ml 2 Ml Vial) 4 mg IV NOW STA Stop: 10/04/24 23:26 Last Admin: 10/04/24 23:41 Dose: 4 mg Documented By: BJ Ondansetron HCl (Ondansetron Inj 2 Mg/Ml 2 Ml Vial) 4 mg IV NOW STA Stop: 10/05/24 01:05 Last Admin: 10/05/24 01:12 Dose: 4 mg Documented By: BJ Ondansetron HCl (Ondansetron Inj 2 Mg/Ml 2 Ml Vial) 4 mg IV NOW STA Stop: 10/05/24 03:26 Last Admin: 10/05/24 04:43 Dose: Not Given Documented By: MJM Potassium Chloride (Potassium Chloride Crtab 20 Meq Tabcr) 40 meq PO NOW STA Stop: 10/05/24 08:18 Last Admin: 10/05/24 08:56 Dose: 40 meq Documented By: RT Potassium Chloride (Potassium Chloride Crtab 20 Meq Tabcr) 20 meq PO ONE ONE Stop: 10/05/24 14:01 Last Admin: 10/05/24 13:35 Dose: 20 meq Documented By: RT Discharge Plan Visit Data Chief Complaint: Urinary Symptoms Stated Complaint: POS UTI, ABD PAIN, BACK PAIN, VOMITING, FEVER ED Provider: Helen Figueredo Discharge Problem: Acute pyelonephritis, Acute left flank pain Patient Disposition: Admitted As Inpatient Discharge Instructions Interventions: ED Discharge Assessment Last Done: 10/05/24 02:21
[2024-10-05] MEDS: ACETAMINOPHEN 1,000 MG/100 ML VIAL IV STA (00:03)
--- NOTE | 2024-10-05 00:29 | History & Physical Report ---
Date of Service October 05, 2024 Assessment & Plan (1) Acute pyelonephritis: (2) History of ESBL E. coli infection: (3) Urinary tract infection: (4) Uncontrolled type 1 diabetes mellitus with hyperglycemia: Plan Patient is a 69-year-old female with past medical history of type 1 diabetes, GERD, hypertension, hypothyroidism, UTIs and pyelonephritis growing ESBL E. coli. She presented to the ED due to left flank pain, chills, urinary symptoms, and vomiting. She is being admitted for pyelonephritis requiring IV antibiotics. #acute pyelonephritis/UTI/history of ESBL E. coli long history of ESBL E. coli resulting in UTIs and pyelonephritis since 2019 febrile on admission - temp 37.9C Not bacteremic on admission, no leukocytosis, VSS - trend CBC UA appears infectious with trace protein, hematuria, nitrates, 2+ leukocyte esterase, > 50 WBC, 3-5 hyaline cast, 4+ bacteria renal function stable - trend BMP and Mg defer urology consult on admission; eval March 2023 stated patient could have cystoscopy in outpatient setting, consider outpatient referral on discharge Follow urine cultures Continue ertapenem IV Bladder and renal US unremarkable; will order AP CT to better assess Gentle IVF with NSS at 80 mL/hour Pain management with Tylenol as needed, morphine 2/4mg as needed nausea/vomiting - Zofran as needed, clears (advance as tolerated), defer po evening home meds until tomorrow 10/05 #T1DM insulin-dependent most recent A1c 8.7 07/01/2024 UA showed 1+ glucose continue home insulin and glucose monitoring with Dexcom/ daily BSG Neuropathy continue gabapentin Chronic stable diagnoses: anemiachronic, stable, Hgb baseline GERDcontinue PPI HLDcontinue statin hypothyroidismcontinue levothyroxine HTNcontinue amlodipine and arb VTE ppx: scds - low risk Diet: clears - advance as tolerated with nausea to t1dm Dispo: med surg Admission and Anticipated Discharge Date Admission Date: 10/05/24 History of Present Illness Chief Complaint: urinary symptoms Primary Care Provider: Manasa Galan DO Patient is a 69-year-old female with past medical history of type 1 diabetes, GERD, hypertension, hypothyroidism, UTIs and pyelonephritis growing ESBL E. coli. She presented to the ED due to left flank pain, chills, urinary symptoms, and vomiting. She is being admitted for pyelonephritis requiring IV antibiotics. Patient has a long history of recurrent UTIs and right sided pyelonephritis growing ESBL E. coli since 2019. She has been evaluated by infectious disease and urology in the past; urology recommended in March 2023 that she could have a cystoscopy outpatient however was never arranged. She was intolerant to methenamine outpatient in 2022. Patient seen at bedside. She stated that Thursday and Thursday she developed UTI symptoms of burning with urination and painful urination. She took Azo for 2 days but developed significant abdomen and back pain starting yesterday. Today the back pain became severe. It initially started on the left side but is now bilaterally. She also noted a fever of 101.7 F this evening at roughly 7 PM. She endorses nausea and vomiting, vomiting roughly 3 times today. She has not been able to tolerate p.o. intake today. On exam, patient was receiving IV morphine and Zofran for nausea. Her pain was unrelieved with IV Tylenol. She endorses dizziness and weakness. She denies hematuria. She does not use nicotine products or drink alcohol regularly. She denies previous VTE. She took all of her home medications today other than PM ropinirole. She wishes to be DNR/DNI. Patient was to have appointment with PCP/resident Dr. Benitez Medrano 10/05/2024 due to urologic symptoms. PCP follow-up will need rescheduled on discharge. Allergies Allergy/AdvReac Type Severity Reaction Status Date / Time Penicillins Allergy Severe Difficulty Verified 10/04/24 23:27 Breathing Sulfa (Sulfonamide Allergy Intermediate Hives Verified 07/01/24 09:47 Antibiotics) methenamine Allergy Unknown CAN'T Verified 07/01/24 09:47 REMEMBER Home Medications Medication Instructions Recorded Confirmed Type cholecalciferol (vitamin D3) 50 50 mcg PO QAM 05/21/20 10/05/24 History mcg (2,000 unit) capsule (Vitamin D3) alendronate 70 mg tablet 70 mg PO WK 09/27/21 10/05/24 History subcutaneous insulin pump (t:slim 11/13/21 10/05/24 History X2 Basal-IQ Insulin Pump) Novolog FlexPen U-100 Insulin 100 See Rx Instructions subcut TID #30 05/05/22 10/05/24 Rx unit/mL (3 mL) subcutaneous mL (insulin aspart U-100) acetaminophen 500 mg capsule 1,000 mg PO Q6 PRN Pain 06/26/22 10/05/24 History aspirin 81 mg tablet,delayed 81 mg PO DAILY 06/26/22 10/05/24 History release (Raymond Low Dose Aspirin) pen needle, diabetic 32 gauge x #50 ea 12/10/22 10/05/24 Rx 5/32" (BD Shira 2nd Gen Pen Needle) gabapentin 100 mg capsule 100 mg PO TID #90 caps 12/25/22 10/05/24 Rx pantoprazole 40 mg tablet,delayed 40 mg PO DAILY #90 tabs 12/25/22 10/05/24 Rx release igxtzyw-upzyqmsbvrtzc-rqmehimp 250 1 tab PO Q6H PRN Headache 12/28/22 10/05/24 History mg-250 mg-65 mg tablet (Excedrin Migraine) cranberry extract 425 mg capsule 425 mg PO DAILY 01/15/23 10/05/24 History acetone (urine) test (Ketostix #50 ea 04/23/23 10/05/24 Rx strips) glucagon 3 mg/actuation nasal 3 mg intranasal ONCE #2 ea 04/23/23 10/05/24 Rx spray (Baqsimi) rosuvastatin 20 mg tablet 20 mg PO DAILY 06/26/23 10/05/24 History ropinirole 0.5 mg tablet 0.5 mg PO HS 09/25/23 10/05/24 History montelukast 10 mg tablet 10 mg PO HS 10/23/23 10/05/24 History ibuprofen 800 mg tablet 800 mg PO Q8H PRN pain #90 tabs 12/09/23 10/05/24 Rx ondansetron HCl 4 mg tablet 4 mg PO Q6 PRN nausea #20 tabs 01/06/24 10/05/24 Rx levothyroxine 125 mcg tablet 125 mcg PO QAM #90 tabs 03/25/24 10/05/24 Rx OneTouch Ultra Test (blood sugar #300 ea 04/21/24 10/05/24 Rx diagnostic) amlodipine 5 mg tablet (Norvasc) 5 mg PO QAM 07/01/24 10/05/24 History irbesartan 300 mg tablet 300 mg PO DAILY 07/01/24 10/05/24 History meloxicam 7.5 mg tablet 7.5 mg PO DAILY 07/01/24 10/05/24 History Novolog U-100 Insulin aspart 100 60 unit (0.6 mL) continuous 08/26/24 10/05/24 Rx unit/mL subcutaneous solution subcutaneous infusion DAILY #60 mL (insulin aspart U-100) Past Med/Surg History Problem List (Updated 10/04/24 @ 23:56 by Helen Figueredo DO) Acute left flank pain (Acute) Acute pyelonephritis (Acute) Uncontrolled type 1 diabetes mellitus with hyperglycemia High glycation index; A1c typically about 2 points higher than average blood sugar would predict History of ESBL E. coli infection Urinary tract infection GERD (gastroesophageal reflux disease) Osteoporosis Hypertension (Chronic) Hypothyroidism Nondiabetic gastroparesis (Chronic) Osteoarthritis of both hips (Chronic) Mixed hyperlipidemia (Chronic) Presence of insulin pump (Chronic) t:slim Diabetic neuropathy associated with type 1 diabetes mellitus Type 1 diabetes mellitus Medical History Recurrent pyelonephritis Recurrent urinary tract infection Pyelonephritis Hx of diabetes with ketoacidosis (~05/14/20) History of ESBL E. coli infection History of biliary stent insertion Antibiotic-resistant bacterial infection Sepsis E coli bacteremia Infection due to ESBL-producing Escherichia coli Headache Urinary tract infection Encounter for pre-operative examination Sphincter of Oddi dysfunction Gastroparesis Elevated LFTs History of COVID-19 Age related osteoporosis SARS-CoV-2 positive Anemia COVID-19 Abdominal pain Fever Encounter for pre-operative examination Bilateral hip joint arthritis RLS (restless legs syndrome) CAD (coronary artery disease) Diabetic retinopathy associated with type 1 diabetes mellitus Type 1 diabetes mellitus, uncontrolled Hyperlipidemia Surgical History Status post total hip replacement, right Status post total hip replacement, left Status post right hip replacement History of biliary stent insertion S/P ERCP Hx of cardiac cath History of total left knee replacement History of cholecystectomy Family History Mother Family history of diabetes mellitus Other No significant family history Social History Smoking Status: Former smoker Tobacco Type: Cigarettes Second Hand Exposure: No; Do You Dip or Chew Tobacco: No; Hx Alcohol Use: No Hx Substance Use: No Preferred Language: Kazakh Communication Ability: Effective Visual Impairment: No Limitations Hearing Ability: Normal Machine Heel Builder Required: No Beliefs That Will Affect Care: None marital status: / Current Living Situation: Family Current Living Situation Comment: son and granddaughter Feels Safe at Home: Yes Safety Concerns: Feels Safe At This Time Assistive Devices: Denture - Lower and Glasses Review of Systems Review of Systems: see HPI Physical Exam Physical Exam: The patient is awake, alert and oriented 3, well developed and well nourished, normocephalic and atraumatic, in no acute distress. Non-toxic appearing. HEENT- EOMI, mucous membranes moist. Hearing grossly intact. Heart-normal S1 and S2. No murmurs, rubs or gallops. Lungs-clear bilaterally, no respiratory distress, no accessory muscle use. Abdomen-normal bowel sounds and soft. No ascites noted. Non-tender. Extremities- no clubbing, cyanosis, or edema. Rheumatologic-normal range of motion. Psychiatric-normal affect. Results & Data Results & Data Vital Signs (Past 12 Hours) Vital Signs Temp Pulse Resp BP Pulse Ox O2 Del Method 10/04/24 23:37 75 20 124/62 96 Room Air 10/04/24 23:33 80 10/04/24 20:22 37.9 C H 101 H 18 136/75 94 Room Air Laboratory Results reviewed CBC, CMP, Pro-Butch, UA Diagnostic Findings bladder and renal ultrasound ordered Medications Administered ED2L NSS bolus, ertapenem 1G IV, IV acetaminophen 1G, Zofran 4 Mg IV, morphine 4 Mg IV ECG Additional Comments: ordered Code Status & VTE Plan Code Status dnr/dni VTE Prophylaxis Plan VTE Prophylaxis will be ordered: Yes Supervising Physician Co-Signing Physician Notes Attending addendum: I have physically seen this patient, have supervised the DELMER's activities, and agree with the H&P unless as otherwise noted. Assessment and Plan: The patient is a 69-year-old female with past medical history including diabetes mellitus type 1, GERD, hypertension, hypothyroidism, recurrent UTI and pyelonephritis with ESBL E. coli. She presents to the emergency department with left flank pain, chills, urinary symptoms and vomiting over the past few days. Acute pyelonephritis/recurrent urine tract infection history with ESBL E. coli- Follow urine culture sensitivity Empiric ertapenem 1 g IV daily Most recent cultures and sensitivities: Right-sided pyelonephritis 10/22-10/25/2023, 03/27-03/29/2023, right sided pyelofi/-12/31/2022, 10/23/2023 ESBL E. coli, additional cultures 03/27/23, 06/26/2022, and 09/07/2019, all these infections were associated with ESBL E. coli. Status post 1 L normal saline boluses x 2 from the ED Continue NSS at 80 mL/h x 1 additional liter Acetaminophen 1 g by mouth every 6 hours as needed for mild pain or fever Morphine sulfate 2 mg IV every 4 hours as needed for moderate pain Morphine sulfate 4 mg IV every 3 hours needed for severe pain Zofran 4 mg IV every 6 hours as needed Diabetes mellitus- Most recent A1c 8.7 on 07/01/2024 Continue inpatient monitoring with Dexcom and adjustment notifying the nurses Remaining orders and notations as noted PG Care Time/CCT Total # of Minutes Spent Total Time Spent with Patient: Total time spent is greater than 50% in coordination of care (as documented) at patient's floor/unit and/or counseling patient: Coding Level of Care Code 86550 INT INP/OBS CARE MIN Diagnoses Acute pyelonephritis N10 History of ESBL E. coli infection Z86.19 Acute pyelonephritis N10 Urinary tract infection type: acute pyelonephritis Uncontrolled type 1 diabetes mellitus with hyperglycemia E10.65 (3) Urinary tract infection Urinary tract infection type: acute pyelonephritis Qualified Code(s): N10 - Acute pyelonephritis
[2024-10-05] MEDS: MoRPHine SULFATE 4 MG/ML 1 ML CARP\\VIAL IV STA (00:52)
[2024-10-05] MEDS: SODIUM CHLORIDE 0.9% 1,000 ML IV ONE (00:53)
[2024-10-05] MEDS: ONDANSETRON INJ 2 MG/ML 2 ML VIAL IV STA ×2 (01:12→04:43)
--- NOTE | 2024-10-05 02:00 | Ultrasound Report ---
EXAM: US renal/blad retro comp CLINICAL HISTORY: left flank pain, uti TECHNIQUE: Static ultrasound images with Grayscale and Doppler of kidneys and urinary bladder were submitted for review. COMPARISON: [facility], 01/09/2020 12:58:05 BEAMING INSPECTOR FINDINGS: The right kidney is normal in size and echogenicity without evidence of hydronephrosis, nephrolithiasis or focal mass lesions. The left kidney is normal in size and echogenicity without evidence of hydronephrosis, nephrolithiasis or focal mass lesions. Urinary bladder is unremarkable. IMPRESSION: 1. Unremarkable Renal and urinary bladder sonogram. No interval change. Electronically signed by Jerry Benito 10-05-2024 01:59 AM
[2024-10-05] MEDS ORDERED: GLUCAGON FOR INJ 1 MG VIAL SQ PRN (02:56)
[2024-10-05] MEDS ORDERED: GLUCOSE 40% GEL 15 GM TUBE PO PRN (02:56)
[2024-10-05] MEDS ORDERED: MoRPHine SULFATE 2 MG/ML CARP IV PRN (02:56)
[2024-10-05] MEDS ORDERED: DEXTROSE 50% 50 ML SYRINGE IV PRN (02:56)
[2024-10-05] MEDS ORDERED: GLUCOSE 10 TAB/TUBE PO PRN (02:56)
[2024-10-05] MEDS ORDERED: MoRPHine SULFATE 4 MG/ML 1 ML CARP\\VIAL IV PRN (02:56)
[2024-10-05] MEDS ORDERED: CARBOHYDRATES FOR HYPOGLYCEMIA PO PRN (02:56)
[2024-10-05] MEDS ORDERED: PROMETHAZINE 12.5 MG/50.5 ML BAG IV PRN (03:17)
[2024-10-05] MEDS: SODIUM CHLORIDE 0.9% 1,000 ML IV SCH (03:22)
[2024-10-05] MEDS: PROMETHAZINE 12.5 MG/50.5 ML BAG IV STA (03:39)
[2024-10-05] MEDS: OPTIRAY 320 100ml IV ONE (04:24)
--- NOTE | 2024-10-05 05:38 | CT Scan Report ---
EXAM: CT abd pelvis IV con only CLINICAL HISTORY: Suspected pyelonephritis, US unremarkable TECHNIQUE: Multiple contiguous axial images were obtained from the level of diaphragm to the pubis symphysis. This study was acquired after the IV administration of iodinated contrast material, given the patients indications for the examination. If IV contrast material had not been administered, the likelihood of detecting abnormalities relevant to the patients condition would have been substantially decreased. Coronal and sagittal reformatted images were generated and reviewed to improve anatomic localization and optimize lesion detection. CT scan was performed according to ALARA (as low as reasonable achievable). COMPARISON: 10/23/2023 05:33:51 SIGNAL TESTER FINDINGS: The visualized lung bases are clear. OBX.5.1OBX.5.1.1 ABDOMEN/PELVIS: The liver is normal in size and attenuation. Few calcified hepatic granulomas. Few subcentimetric simple hepatic cysts. There is mild intra /OBX.5.1.1OBX.5.1.2 extrahepatic biliary ductal dilatation with common bile duct measuring 9.8mm at jack. Hepatic vasculature is patent. Surgically absent gallbladder./OBX.5.1.2/OBX.5.1 The adrenal glands are unremarkable. Multiple calcified splenic granulomas. Pancreas is atrophied with prominent main pancreatic duct. Diverticula noted in D2 segment of duodenum. The kidneys are normal in size. Subtle striated nephrogram noted bilaterally with bilateral prominent ureters showing mild wall thickening. No obstructive ureteric calculi noted. Few tiny bilateral renal non-obstructive calculi. There is no hydronephrosis or perinephric fat stranding. No renal masses are identified. The bladder is normal in contour. No evidence of focal or diffuse bowel wall thickening or evidence of bowel obstruction is seen. No adenopathy or fluid collections are seen. The aorta is normal in caliber. No aggressive appearing osseous lesions are identified. Bilateral total hip implants noted. Chronic fracture of left pubic bone with callus formation. IMPRESSION: 1. Subtle striated nephrogram bilaterally with bilateral prominent ureters showing mild wall thickening, likely suggestive of pyelonephritis with ureteritis. No obstructive ureteric calculi. (New finding) 2. Few tiny bilateral renal non-obstructive calculi. OBX.5.1OBX.5.1.13. Few calcified hepatic granulomas /OBX.5.1.1OBX.5.1.2 few subcentimetric simple hepatic cysts. (Stable)/OBX.5.1.2/OBX.5.1 OBX.5.1OBX.5.1.14. Mild intra /OBX.5.1.1OBX.5.1.2 extrahepatic biliary ductal dilatation with common bile duct measuring 9.8mm at jack, likely post cholecystectomy/ senile prominence./OBX.5.1.2/OBX.5.1 5. D2 segment diverticula. 6. Atrophied pancreas with mild prominence of common bile duct. 7. Bilateral total hip implants noted. 8. Chronic fracture of left pubic bone with callus formation. Electronically signed by Jerry Benito 10-05-2024 05:38 AM
[2024-10-05] MEDS: LEVOTHYROXINE SODIUM 125 MCG TABLET PO SCH (05:53)
[2024-10-05 06:30] LABS: Basophils # (auto) 0.03 K/uL (0.00-0.20); Basophils % (auto) 0.3 %; Hematocrit (blood only) 29.6 % (37.0-47.0); Immature Granulocytes # (auto) 0.02 K/uL (0.01-0.20); Immature Granulocytes % (auto) 0.2 %; Lymphocytes # (auto) 0.46 K/uL (1.20-3.40); Lymphocytes % (auto) 5.2 %; Mean Corpuscular Hgb Conc 33.8 g/dL (32.0-36.0); Mean Corpuscular Volume 88.9 fL (80.0-100.0); Mean Platelet Volume 10.5 fL (9.4-12.4); Monocytes # (auto) 0.56 K/uL (0.11-0.59); Monocytes % (auto) 6.3 %; Neutrophils # (auto) 7.85 K/uL (1.40-6.50); Platelet Count 110 K/uL (130-400); RDW Standard Deviation 42.1 fL (36.4-46.3); Red Blood Count 3.33 M/uL (4.20-5.40); White Blood Count 8.92 K/ul (4.8-10.8)
[2024-10-05 06:49] LABS: BUN Creatinine Ratio 16.7 (10-20); Calcium 8.1 mg/dl (8.6-10.3); Creatinine Clr Calc Pharmacy 80.9 ml/min; Magnesium 1.5 mg/dl (1.7-2.4); Potassium 3.2 mmol/L (3.5-5.1)
[2024-10-05] MEDS: ACETAMINOPHEN 1,000 MG/100 ML VIAL IV PRN (07:34)
--- NOTE | 2024-10-05 07:35 | Hospitalist Progress Note ---
Date of Service October 05, 2024 Assessment & Plan (1) Acute pyelonephritis: (2) History of ESBL E. coli infection: (3) Urinary tract infection: (4) Uncontrolled type 1 diabetes mellitus with hyperglycemia: Plan Patient is a 69-year-old female with past medical history of type 1 diabetes, GERD, hypertension, hypothyroidism, UTIs and pyelonephritis growing ESBL E. coli. She presented to the ED due to left flank pain, chills, urinary symptoms, and vomiting. She is being admitted for pyelonephritis requiring IV antibiotics. #Acute pyelonephritis, b/l Recurrence of ESBL E. coli resulting in UTIs and pyelonephritis since 2019, Ertapenem and Zosyn typically with good efficacy Continue ertapenem IV q24 Gentle IVF with NSS at 80 mL/hour, though may be discontinued if PO hydration is sufficient CBC AM Febrile on admission, resolved UA: 4+ bacteria, hematuria, nitrates, 2+ leukocyte esterase, > 50 WBC Follow urine cultures CT Abd/Pelvis showing inflammation of b/l ureters and kidneys Pain management on board, consider d/c opioids as pain resolves Nausea/vomiting - Zofran as needed; tolerating carb consistent and heart healthy diet #Overflow diarrhea - CT abd/pelvis showing significant amount of stool in colon, likely overflow Miralax prn ordered #Electrolyte disturbances - K+ 3.2 and Mag 1.5 Repleted 10/05/24 BMP + Mag AM #T1DM insulin-dependent most recent A1c 8.7 07/01/2024 UA showed 1+ glucose Continue home insulin and glucose monitoring with Dexcom/ daily BSG Neuropathy continue gabapentin BMP AM Chronic stable diagnoses: anemiachronic, stable, Hgb baseline GERDcontinue PPI HLDcontinue statin hypothyroidismcontinue levothyroxine HTNcontinue amlodipine and arb VTE ppx: scds - low risk Diet: carb consistent, heart healthy Dispo: med surg Admission and Anticipated Discharge Date Admission Date: October 05, 2024 Supervising Physician Co-Signing Physician Notes I personally examined the patient and verified all martinez points of history and exam, discussed case, and agree with decision making with Dr Shaikh Feeling better than before. Vitals noted, in general she is awake and alert fatigued but no distress. HEENT normocephalic atraumatic mucous membranes moist. Breathing unlabored no accessory muscle use good effort. Skin without rashes pallor or icterus. Neuro without focal deficits. Pyelonephritis with probable ESBL as culprit organism with sepsis present on admissionimproving nicely. Prior cultures were ESBL'ssuspect it will be the same. After extensive workup it seems most likely that her recurrent infections are largely due to type 1 diabeteswhich would also be corroborated by the fact that her pace of recurrence seems to have slowed down as her A1c has improved. Hopefully home soon. DVT proph - SCDs Subjective Jes was seen and evaluated at bedside this AM, appearing in no acute distress. Confirms history of recurrent ESBL E. coli UTIs resulting in pyelonephritis and resulting hospitalizations. States she was having L back/flank pain last Thursday10/01/24 with dysuria, took Azo over the weekend which helped but was having sx again Thursday10/03/24. Symptoms progressed to R sided pain as well, and increasing nausea with vomiting about 3 times yesterday 10/04/24, prompting her to come to the ER. In the ER she was found to have signs of kidney and ureter inflammation on CT abdomen/pelvis, and UA with evidence of significant bacterial burden, and with urinary symptoms pt was started on IV Zosyn, given IV fluids and necessary electrolytes. Today, feel much better than she did day prior, flank pain b/l has improved but still present. Tolerated clear liquid breakfast well and willing to try carb consistent / heart healthy diet for lunch. Walking to bathroom with one person assist due to hx diabetic neuropathy but hasn't been having much difficulty with ambulation, urinating regularly with improvement of pain, additionally having diarrhea. Review of Systems Review of Systems: no fever, body aches, chills, sweats, headache, SOB, abdominal pain. Physical Exam Physical Exam: General: A&O3, appearing in mild distress, nontoxic in appearance HEENT: EOM intact, PERRL b/l, anicteric sclerae CV: RRR, +s1/s2, no m/r/g Resp: clear to auscultation b/l, no respiratory distress, no wheeze/rales/rhonchi GI/Abd: +BS, abdomen soft, nontender to palpation MSK: 5/5 strength all ext, mild L CVA tenderness to palpation, no tenderness to palpation of R CVA Ext: no clubbing, cyanosis, or edema Results & Data Results & Data Vital Signs (Past 12 Hours) Vital Signs Temp Pulse Pulse Pulse Resp BP BP 10/05/24 07:31 37.9 C H 82 18 120/66 10/05/24 02:30 10/05/24 02:30 36.7 C 86 18 130/62 10/05/24 02:21 36.6 C 10/05/24 02:09 90 22 153/66 H 10/05/24 01:39 67 16 144/63 H 10/05/24 01:30 72 16 10/05/24 01:18 72 20 10/05/24 01:00 72 21 130/59 L 10/05/24 00:51 73 22 125/62 10/05/24 00:03 81 22 128/68 10/04/24 23:37 75 20 124/62 10/04/24 23:33 80 10/04/24 20:22 37.9 C H 101 H 18 136/75 Pulse Ox O2 Del Method 10/05/24 07:31 92 Room Air 10/05/24 02:30 Room Air 10/05/24 02:30 97 Room Air 10/05/24 02:21 10/05/24 02:09 96 Room Air 10/05/24 01:39 96 Room Air 10/05/24 01:30 96 Room Air 10/05/24 01:18 97 Room Air 10/05/24 01:00 96 Room Air 10/05/24 00:51 93 Room Air 10/05/24 00:03 99 Room Air 10/04/24 23:37 96 Room Air 10/04/24 23:33 10/04/24 20:22 94 Room Air Resident Activity Tracking Resident Involvement: Resident Care Provided Care Provided: Adult Hospital Medicine (3) Urinary tract infection Urinary tract infection type: acute pyelonephritis Qualified Code(s): N10 - Acute pyelonephritis
[2024-10-05] MEDS: amLODIPine BESYLATE 5 MG TAB PO SCH (07:36)
[2024-10-05] MEDS: ROSUVASTATIN CALCIUM 20 MG TAB PO SCH (07:36)
[2024-10-05] MEDS: ASPIRIN 81 MG ECTAB PO SCH (07:36)
[2024-10-05] MEDS: GABAPENTIN 100 MG CAP PO SCH (07:36)
[2024-10-05] MEDS: LOSARTAN POTASSIUM 50 MG TAB PO SCH (07:36)
[2024-10-05] MEDS: PANTOprazole 40 MG TAB PO SCH (07:37)
[2024-10-05] MEDS: Continuous Glucose Monitor SCH (08:30)
[2024-10-05] MEDS: MAGNESIUM SULFATE / D5W 1 GM/100 ML BAG IV SCH (08:56)
[2024-10-05] MEDS: POTASSIUM CHLORIDE CRTAB 20 MEQ TABCR PO STA (08:56)
[2024-10-05 09:29] LABS: Estimated Average Glucose 174 mg/dl; Hemoglobin A1C 7.7 % (4.5-5.6)
--- NOTE | 2024-10-05 12:48 | Electrocardiogram Report ---
Test Reason : Blood Pressure : */* mmHG Vent. Rate : 96 BPM Atrial Rate : 96 BPM P-R Int : 156 ms QRS Dur : 86 ms QT Int : 312 ms P-R-T Axes : 72 67 -13 degrees QTcB Int : 394 ms Normal sinus rhythm Nonspecific ST and T wave abnormality Abnormal ECG When compared with ECG of 27-Mar-2023 02:23, No significant change was found Confirmed by Joe Cline ([id number]) on 10/05/2024 12:48:10 PM Referred By: REFERRED SELF Confirmed By: Joe Cline
[2024-10-05] MEDS: POTASSIUM CHLORIDE CRTAB 20 MEQ TABCR PO ONE (13:35)
[2024-10-05] MEDS: ONDANSETRON INJ 2 MG/ML 2 ML VIAL IV PRN (17:17)
[2024-10-05] MEDS: BENZONATATE 100 MG CAPSULE PO PRN (17:17)
--- NOTE | 2024-10-05 17:48 | Billing Data ---
Date of Service October 05, 2024 Coding Level of Care Code 11457 SUB INP/OBS CARE MIN
[2024-10-05] MEDS: ACETAMINOPHEN 325 MG TAB PO PRN (20:09)
[2024-10-05] MEDS: MONTELUKAST SODIUM 10 MG TABLET PO SCH (20:10)
[2024-10-05] MEDS: POLYETHYLENE (MIRALAX) 17 GM PACK PO SCH (20:11)
[2024-10-05] MEDS: rOPINIRole HCL 0.25 MG TABLET PO SCH (20:11)
[2024-10-05] MEDS: ERTAPENEM 1000MG 1,000 MG/10 ML SYR IV SCH (23:23)
[2024-10-06 06:37] LABS: Hematocrit (blood only) 32.6 % (37.0-47.0); Hemoglobin 10.6 g/dl (12.0-16.0); Mean Corpuscular Hemoglobin 29.4 pg (25.0-34.0); Mean Corpuscular Hgb Conc 32.5 g/dL (32.0-36.0); Mean Corpuscular Volume 90.6 fL (80.0-100.0); Mean Platelet Volume 11.3 fL (9.4-12.4); Platelet Count 111 K/uL (130-400); RDW Coefficient of Variation 12.9 % (11.5-14.5); RDW Standard Deviation 43.2 fL (36.4-46.3); White Blood Count 7.86 K/ul (4.8-10.8)
[2024-10-06 07:01] LABS: BUN Creatinine Ratio 15.2 (10-20); Calcium 8.5 mg/dl (8.6-10.3); Creatinine Clr Calc Pharmacy 80.9 ml/min; Magnesium 2.3 mg/dl (1.7-2.4); Potassium 3.8 mmol/L (3.5-5.1)
--- NOTE | 2024-10-06 07:20 | Hospitalist Progress Note ---
Date of Service October 06, 2024 Assessment & Plan (1) Acute pyelonephritis: (2) History of ESBL E. coli infection: (3) Urinary tract infection: (4) Uncontrolled type 1 diabetes mellitus with hyperglycemia: Plan Patient is a 69-year-old female with past medical history of type 1 diabetes, GERD, hypertension, hypothyroidism, UTIs and pyelonephritis growing ESBL E. coli. She presented to the ED due to left flank pain, chills, urinary symptoms, and vomiting. She is being admitted for pyelonephritis requiring IV antibiotics. 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 coli; sensitive to ertapenem Continue ertapenem q24 CT Abd/Pelvis showing inflammation of b/l ureters and kidneys Pain management on board: hasn't needed morphine, still taking acetaminophen d/c morphine prn Nausea/vomiting - Zofran as needed; tolerating carb consistent and heart healthy diet #Overflow diarrhea - CT abd/pelvis showing significant amount of stool in colon, likely overflow Miralax prn ordered #Electrolyte disturbances - K+ and Mag resolved BMP AM #T1DM insulin-dependent most recent A1c 8.7 07/01/2024 UA showed 1+ glucose Continue home insulin and glucose monitoring with Dexcom/ daily BSG Neuropathy continue gabapentin BMP AM Chronic stable diagnoses: anemiachronic, stable, Hgb baseline GERDcontinue PPI HLDcontinue statin hypothyroidismcontinue levothyroxine HTNcontinue amlodipine and arb VTE ppx: scds - low risk Diet: carb consistent, heart healthy Dispo: med surg Admission and Anticipated Discharge Date Admission Date: October 05, 2024 Supervising Physician Co-Signing Physician Notes I personally examined the patient and verified all martinez points of history and exam, discussed case, and agree with decision making with Dr Shaikh Feeling better than before. very tired though. diarrhea through the night. Vitals noted, in general she is awake and alert fatigued but no distress. HEENT normocephalic atraumatic mucous membranes moist. Breathing unlabored no accessory muscle use good effort. Skin without rashes pallor or icterus. Neuro without focal deficits. Pyelonephritis with ESBL as culprit organism with sepsis present on admissionimproving nicely. anticipate ~10 days ertapenem total. After extensive workup it seems most likely that her recurrent infections are largely due to type 1 diabeteswhich would also be corroborated by the fact that her pace of recurrence seems to have slowed down as her A1c has improved. Hopefully home soon. not yet ready diarrhea - appears to be abx associated loose stools precipitating overflow diarrhea superimposed on a fairly moderate solid fecal load seen on CT. explained to pt. follow DVT proph - add lovenox Subjective Jes was seen and evaluated at bedside this AM, appearing in no acute distress. Today, continues to overall feel better than day prior, endorses some suprapubic pain but denies dysuria or back/flank pain. Notes she had diarrhea multiple times overnight. States she's been tolerating her carb consistent and heart healthy diet, no nausea/vomiting. Has only needed acetaminophen for pain management, no morphine since night of admission. Not having difficulty getting up and walking to bathroom, feels steady. Review of Systems Review of Systems: no body aches, chills, sweats, headache, SOB. Physical Exam Physical Exam: General: A&O3, appearing in mild distress, nontoxic in appearance HEENT: EOM intact, PERRL b/l, anicteric sclerae CV: RRR, +s1/s2, no m/r/g Resp: clear to auscultation b/l, no respiratory distress, no wheeze/rales/rhonchi GI/Abd: +BS, abdomen soft, mild suprapubic tenderness to palpation MSK: 5/5 strength all ext, no CVA tenderness to palpation b/l Ext: no clubbing, cyanosis, or edema Results & Data Results & Data Vital Signs (Past 12 Hours) Vital Signs Temp Pulse Resp BP Pulse Ox O2 Del Method 10/06/24 07:07 38.1 C H 83 16 122/67 92 Room Air 10/05/24 23:48 37.1 C 72 16 113/68 92 Room Air Resident Activity Tracking Resident Involvement: Resident Care Provided Care Provided: Adult Hospital Medicine (3) Urinary tract infection Urinary tract infection type: acute pyelonephritis Qualified Code(s): N10 - Acute pyelonephritis
--- NOTE | 2024-10-06 13:02 | Billing Data ---
Date of Service October 06, 2024 Coding Level of Care Code 47325 SUB INP/OBS CARE 3MIN
[2024-10-06] MEDS ORDERED: INSULIN ASPART 100 UNITS/ML VIAL SC PRN (14:51)
[2024-10-06] MEDS: INSULIN, Rapid-Acting PUMP SC SCH (17:04)
[2024-10-06] MEDS: CHLORASEPTIC (PHENOL) 1.4% SOLN 180 ML BTL MT PRN (17:10)
[2024-10-06] MEDS: KETOROLAC TROMETHAMINE 15 MG/ML VIAL IV ONE (17:15)
[2024-10-06 19:23] VITALS: RESP 18
[2024-10-07 06:59] LABS: Hematocrit (blood only) 30.4 % (37.0-47.0); Hemoglobin 10.2 g/dl (12.0-16.0); Mean Corpuscular Hemoglobin 29.6 pg (25.0-34.0); Mean Corpuscular Hgb Conc 33.6 g/dL (32.0-36.0); Mean Corpuscular Volume 88.1 fL (80.0-100.0); Mean Platelet Volume 11.1 fL (9.4-12.4); Platelet Count 117 K/uL (130-400); RDW Coefficient of Variation 12.5 % (11.5-14.5); Red Blood Count 3.45 M/uL (4.20-5.40); White Blood Count 5.04 K/ul (4.8-10.8)
[2024-10-07 07:22] LABS: BUN Creatinine Ratio 22.6 (10-20); Calcium 8.5 mg/dl (8.6-10.3); Creatinine Clr Calc Pharmacy 86.1 ml/min; Potassium 3.9 mmol/L (3.5-5.1)
[2024-10-07 07:42] VITALS: PULSE 71; TEMP 98.8; O2SAT 96
[2024-10-07 07:46] VITALS: BP 136/74
--- NOTE | 2024-10-07 09:00 | Discharge Summary ---
Date of Service October 07, 2024 Admission HPI Per Admitting Provider Patient is a 69-year-old female with past medical history of type 1 diabetes, GERD, hypertension, hypothyroidism, UTIs and pyelonephritis growing ESBL E. coli. She presented to the ED due to left flank pain, chills, urinary symptoms, and vomiting. She is being admitted for pyelonephritis requiring IV antibiotics. Patient has a long history of recurrent UTIs and right sided pyelonephritis growing ESBL E. coli since 2019. She has been evaluated by infectious disease and urology in the past; urology recommended in March 2023 that she could have a cystoscopy outpatient however was never arranged. She was intolerant to methenamine outpatient in 2022. Patient seen at bedside. She stated that Thursday and Thursday she developed UTI symptoms of burning with urination and painful urination. She took Azo for 2 days but developed significant abdomen and back pain starting yesterday. Today the back pain became severe. It initially started on the left side but is now bilaterally. She also noted a fever of 101.7 F this evening at roughly 7 PM. She endorses nausea and vomiting, vomiting roughly 3 times today. She has not been able to tolerate p.o. intake today. On exam, patient was receiving IV m orphine and Zofran for nausea. Her pain was unrelieved with IV Tylenol. She endorses dizziness and weakness. She denies hematuria. She does not use nicotine products or drink alcohol regularly. She denies previous VTE. She took all of her home medications today other than PM ropinirole. She wishes to be DNR/DNI. Patient was to have appointment with PCP/resident Dr. Benitez Medrano 10/05/2024 due to urologic symptoms. PCP follow-up will need rescheduled on discharge. Admission Exam Per Admitting Provider The patient is awake, alert and oriented 3, well developed and well nourished, normocephalic and atraumatic, in no acute distress. Non-toxic appearing. HEENT- EOMI, mucous membranes moist. Hearing grossly intact. Heart-normal S1 and S2. No murmurs, rubs or gallops. Lungs-clear bilaterally, no respiratory distress, no accessory muscle use. Abdomen-normal bowel sounds and soft. No ascites noted. Non-tender. Extremities- no clubbing, cyanosis, or edema. Rheumatologic-normal range of motion. Psychiatric-normal affect. Principal Diagnosis pyelonephritis, b/l Discharge Exam General: A&O3, appearing in no acute distress, nontoxic in appearance HEENT: EOM intact, PERRL b/l, anicteric sclerae CV: RRR, +s1/s2, no m/r/g Resp: mild scattered rhonchi to auscultation b/l, no respiratory distress, no wheeze/rales GI/Abd: +BS, abdomen soft, mild suprapubic tenderness to palpation MSK: 5/5 strength all ext, no CVA tenderness to palpation b/l Ext: no clubbing, cyanosis, or edema Discharge Data Allergies Allergy/AdvReac Type Severity Reaction Status Date / Time Penicillins Allergy Severe Difficulty Verified 10/04/24 23:27 Breathing Sulfa (Sulfonamide Allergy Intermediate Hives Verified 07/01/24 09:47 Antibiotics) methenamine Allergy Unknown CAN'T Verified 07/01/24 09:47 REMEMBER Consultations 10/05/24 00:31 ED Decision to Admit Stat Ordered Studies 10/04/24 23:27 US renal/blad retro comp Stat 10/05/24 02:53 CT abd pelvis IV con only Urgent Hospital Course (1) Acute pyelonephritis: (2) History of ESBL E. coli infection: (3) Urinary tract infection: (4) Uncontrolled type 1 diabetes mellitus with hyperglycemia: Plan Patient is a 69-year-old female with past medical history of type 1 diabetes, GERD, hypertension, hypothyroidism, UTIs and pyelonephritis growing ESBL E. coli. She presented to the ED due to left flank pain, chills, urinary symptoms, and vomiting. She is being admitted for pyelonephritis requiring IV antibiotics. 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 coli; sensitive to ertapenem Continue ertapenem q24 CT Abd/Pelvis showing inflammation of b/l ureters and kidneys Pain management on board: hasn't needed morphine, still taking acetaminophen d/c morphine prn Nausea/vomiting - Zofran as needed; tolerating carb consistent and heart healthy diet #Overflow diarrhea - CT abd/pelvis showing significant amount of stool in colon, likely overflow Miralax prn ordered #Electrolyte disturbances - K+ and Mag resolved #T1DM insulin-dependent most recent A1c 8.7 07/01/2024 UA showed 1+ glucose Continue home insulin and glucose monitoring with Dexcom/ daily BSG Neuropathy continue gabapentin Chronic stable diagnoses: anemiachronic, stable, Hgb baseline GERDcontinue PPI HLDcontinue statin hypothyroidismcontinue levothyroxine HTNcontinue amlodipine and arb VTE ppx: scds - low risk Diet: carb consistent, heart healthy Dispo: med surg Total Time Total Time Spent Total Time Spent (In Minutes): <30 Discharge Plan Discharge Items Patient Disposition: Home - Self-Care Reason For Visit: UTI, PYELONEPHRITIS, HX OF ESBL E. COLI Discharge Diagnosis: pyelonephritis, b/l Activity: Per Instructions section Non-emergency contact: Primary Care Provider Call non-emergency contact if: your symptoms worsen and your pain is not controlled Follow-up/Referrals: Manasa Galan DO [Primary Care Provider] - 10/14/24 1:00 pm Carlos Shaikh DO [Resident] - Diet: Carb Consistent or DM2 and Heart Healthy Addtl Attending Provider Instructions: You were evaluated and treated at [facility] for bilateral pyelonephritis due to UTI. You received IV fluids overnight and feeling a bit better in the morning. The bacteria was found to be ESBL E. coli, for which we started you on Ertapenem after initially starting you on Zosyn. Your urinary symptoms resolved after 2 days but you had a 102F fever on 10/06/24 along with headache and sore throat. You noted a history of migraines and that your headache felt like one coming on, so you were given a dose of IV ketorolac in addition to the acetaminophen. As we had low suspicion of strep throat, we ordered you chlorasceptic spray for pain relief. Your appetite has been improving and you have been able to walk to the bathroom on your own without assistance. You are continuing to clinically improve and due to your medical and clinical stability, we feel comfortable with your discharge home with plan in place to continue receiving your ertapenem q24 at [facility] for a total of 2 weeks of abx, i.e. through 10/14/24. You will receive your final inpatient dose of ertapenem today 10/07/24 prior to discharge for your convenience. Please additionally follow up as an outpatient at your PCP clinic sometime next week - Dr. Shaikh would be happy to see you in clinic next Thursday10/14/24 as he has availability between 800-1200. Otherwise, if 10/14/24 AM doesn't work for you, please follow up with Dr. Galan if she has availability sometime next week. Otherwise please follow up with any other provider with availability that works best for you next week. Thank you for allowing us to participate in your care. Pending Studies at Discharge: No Stand-Alone Forms: My [facility] [place], Smoking Cessation Medications and DC Order Prescriptions: New benzonatate 100 mg Capsule 100 mg PO TID PRN (Reason: cough) Qty: 30 0RF Continued insulin aspart U-100 [Novolog FlexPen U-100 Insulin] 100 unit/mL (3 mL) insulin pen See Rx Instructions subcut TID Qty: 30 2RF Rx Instructions: in case of pump failure TDD 0 units subcut three times a day (DME) pen needle, diabetic [BD Shira 2nd Gen Pen Needle] 32 gauge x 5/32" needle See Rx Instructions miscellaneous .MEDSUPPLY Qty: 50 3RF Rx Instructions: Use a new pen needle each night ibuprofen 800 mg tablet 800 mg PO Q8H PRN (Reason: pain) Qty: 90 1RF ondansetron HCl 4 mg tablet 4 mg PO Q6 PRN (Reason: nausea) Qty: 20 1RF (DME) OneTouch Ultra Test Strip See Rx Instructions .ROUTE .MEDSUPPLY Qty: 300 3RF Rx Instructions: test 3 times daily insulin aspart U-100 [Novolog U-100 Insulin aspart] 100 unit/mL solution 60 unit continuous subcutaneous infusion DAILY Qty: 60 3RF rosuvastatin 20 mg tablet 20 mg PO DAILY cranberry extract 425 mg capsule 425 mg PO DAILY Rx Instructions: administer with a meal levothyroxine 125 mcg tablet 125 mcg PO QAM Qty: 90 3RF meloxicam 7.5 mg tablet 7.5 mg PO DAILY irbesartan 300 mg tablet 300 mg PO DAILY amlodipine [Norvasc] 5 mg tablet 5 mg PO QAM (DME) Ketostix Strip See Rx Instructions miscellaneous .MEDSUPPLY Qty: 50 5RF Rx Instructions: check if blood sugars are > 250 for 4 to 6 hours Baqsimi 3 mg/actuation spray,non-aerosol 3 mg intranasal ONCE Qty: 2 5RF ropinirole 0.5 mg tablet 0.5 mg PO HS (DME) t:slim X2 Basal-IQ Insulin Trapeze Performer Misc See Rx Instructions .Route Rx Instructions: As directed gabapentin 100 mg capsule 100 mg PO TID Qty: 90 2RF pantoprazole 40 mg tablet,delayed release (DR/EC) 40 mg PO DAILY Qty: 90 3RF cholecalciferol (vitamin D3) [Vitamin D3] 50 mcg (2,000 unit) Capsule 50 mcg PO QAM alendronate 70 mg tablet 70 mg PO WK Patient Comments: SUNDAYS Rx Instructions: Thursday Excedrin Migraine 250-250-65 mg Tablet 1 tab PO Q6H PRN (Reason: Headache) aspirin [Raymond Low Dose Aspirin] 81 mg tablet,delayed release (DR/EC) 81 mg PO DAILY acetaminophen 500 mg capsule 1,000 mg PO Q6 PRN (Reason: Pain) montelukast 10 mg tablet 10 mg PO HS Discharge Orders: Discharge Order (Routine); Ordered 10/07/24 Ordered By: Carlos Rivera/Other Patient Handouts: Urinary Tract Infections in Women, UTIs, Kidney Infec Dc, Pyelonephritis Ch Dc Admission Data Admit Date/Time: 10/05/24 01:12 Attending Provider: Remberto Ellis Admit Provider: Yonas Sanon Primary Care Provider: Manasa Galan Other Providers: Yonas Sanon Other Interventions: Discharge Summary Assessment (RN) Last Done: 10/07/24 13:22 Supervising Physician Co-Signing Physician Notes I personally examined the patient and verified all martinez points of history and exam, discussed case, and agree with decision making with Dr Shaikh Feeling better than before. feels up to going home. Vitals noted, in general she is awake and alert fatigued but no distress. HEENT normocephalic atraumatic mucous membranes moist. Breathing unlabored no accessory muscle use good effort. Skin without rashes pallor or icterus. Neuro without focal deficits. Pyelonephritis with ESBL as culprit organism with sepsis present on admissionimproving nicely. anticipate ~10 days ertapenem total. (blood cultures weren't sent prior to abx - doubt she was bacteremic, but with how quickly she got better this would cover regardless) After extensive workup it seems most likely that her recurrent infections are largely due to type 1 diabeteswhich would also be corroborated by the fact that her pace of recurrence seems to have slowed down as her A1c has improved. safe for home today. ertapenem early today. starts at [facility] tomorrow diarrhea - appears to be abx associated loose stools precipitating overflow diarrhea superimposed on a fairly moderate solid fecal load seen on CT. explained to pt. VARGHESE puri utilized Resident Activity Tracking Resident Involvement: Resident Care Provided Care Provided: Adult Hospital Medicine
[2024-10-07] MEDS: ENOXAPARIN INJ 40 MG/0.4 ML SYR SQ SCH (10:14)
[2024-10-07] MEDS: ERTAPENEM 1000MG 1,000 MG/10 ML SYR IV ONE (12:50)
--- NOTE | 2024-10-07 14:11 | Billing Data ---
Date of Service October 07, 2024 Coding Level of Care Code 12559 IN/OBS DISCH 30 MIN/LESS
== END 2024-10-07 13:45 | disposition home or self-care (01) | DRG 690 ==
LOC: ED 20:12 → INTOOBSV 10-05 01:12 → SUATTDRO 10-05 01:12 → 3E 10-05 01:12
DX: R19.7 Diarrhea, unspecified; Z79.4 Long term (current) use of insulin; E03.9 Hypothyroidism, unspecified; E87.8 Other disorders of electrolyte and fluid balance, not elsewhere classified; Z87.440 Personal history of urinary (tract) infections; E10.65 Type 1 diabetes mellitus with hyperglycemia; D64.9 Anemia, unspecified; Z87.891 Personal history of nicotine dependence; Z88.8 Allergy status to other drugs, medicaments and biological substances; N39.0 Urinary tract infection, site not specified; B96.20 Unspecified Escherichia coli [E. coli] as the cause of diseases classified elsewhere; E78.5 Hyperlipidemia, unspecified; Z88.2 Allergy status to sulfonamides; K21.9 Gastro-esophageal reflux disease without esophagitis; Z88.0 Allergy status to penicillin; Z79.899 Other long term (current) drug therapy; N10 Acute pyelonephritis; Z79.82 Long term (current) use of aspirin; T36.95XA Adverse effect of unspecified systemic antibiotic, initial encounter; I10 Essential (primary) hypertension

== ENCOUNTER 2024-11-24 18:57 | Inpatient (IN) ==
[2024-11-24 19:47] LABS: Basophils # (auto) 0.04 K/uL (0.00-0.20); Basophils % (auto) 0.5 %; Hematocrit (blood only) 33.6 % (37.0-47.0); Hemoglobin 10.9 g/dl (12.0-16.0); Immature Granulocytes # (auto) 0.04 K/uL (0.01-0.20); Immature Granulocytes % (auto) 0.5 %; Lymphocytes # (auto) 2.09 K/uL (1.20-3.40); Lymphocytes % (auto) 24.6 %; Mean Corpuscular Hemoglobin 28.5 pg (25.0-34.0); Mean Corpuscular Hgb Conc 32.4 g/dL (32.0-36.0); Mean Platelet Volume 10.5 fL (9.4-12.4); Monocytes # (auto) 0.56 K/uL (0.11-0.59); Monocytes % (auto) 6.6 %; Neutrophils # (auto) 5.78 K/uL (1.40-6.50); Neutrophils % (auto) 67.8 %; Platelet Count 173 K/uL (130-400); RDW Coefficient of Variation 13.3 % (11.5-14.5); Red Blood Count 3.82 M/uL (4.20-5.40); White Blood Count 8.51 K/ul (4.8-10.8)
--- NOTE | 2024-11-24 19:53 | Emergency Department Note ---
Impression & Plan Acute UTI ADMIT ED Provider Note HPI: History obtained from patient. The patient is a 69-year-old female with history of recurrent ESBL UTIs, pyelonephritis, coronary artery disease, presents the emergency department with a chief complaint of dysuria and intermittent fevers. Patient states she gave a urine sample at her doctor's office on 11/22 which subsequently grew ESBL and she was called today by ED pharmacy and recommended to come to the ER for IV antibiotics. Patient states she has been increasingly ill over the past 1 to 2 days, she states she has had some flank pain intermittently as well as fevers at home. Patient was placed on Macrobid which would provide ESBL coverage in this instance however given her flank pain she was recommended to come to the ED in case she had pyelonephritis. On arrival here to the ED the patient is hemodynamically stable, she otherwise appears to be in no acute distress. ROS: - Per HPI Differential Diagnosis: Urinary tract infection, sepsis, pyelonephritis, acute kidney injury/dehydration, critical electrolyte abnormalities, amongst other potential pathologies. *Outpatient medications and allergy history reviewed. PE: General: Alert HEENT: Normocephalic, trachea midline Eyes: Extraocular eye movement is intact, no scleral erythema Pulmonary: Clear to auscultation bilaterally, no wheezing Cardio: Regular rate and rhythm GI: Abdomen is soft to palpation : Mild suprapubic tenderness, left flank tenderness to palpation MSK: No evidence of trauma or malformation of the extremities, no edema Skin: No evidence of rash Neuro: Alert, no focal deficits Psychiatric: Cooperative INDEPENDENT INTERPRETATIONS: monitor worker: (As interpreted by myself): - An order was placed for continuous cardiac monitoring - Patient was noted to be in sinus rhythm with a rate of 85 Interventions provided in ED: -IV fluid bolus, IV ertapenem, IV Zofran, IV Tylenol Medical Decision Making: IV was established and lab work obtained, patient was placed on groundwater monitoring technician. Patient initially did not have much flank tenderness on my exam therefore CT imaging was not initially ordered. Lab work shows no leukocytosis, hemoglobin is normal, platelet count is normal, CMP shows a mild hypokalemia at 3.3, no evidence of acute kidney injury. Blood cultures were drawn and patient was given initial dose of IV or ertapenem. She was also given IV Zofran for nausea and IV Tylenol. On my reassessment patient states she is having some worsening left flank pain, given her urinalysis/culture results from previous in addition to her flank pain, I do feel she would benefit from admission. Case was discussed with the on-call midlevel provider for [facility] service, they are in agreement for admission, patient was placed for admission to the service of Dr. Hart. Given development of left flank pain on my reevaluation I also ordered CT imaging of the abdomen pelvis for further assessment of potential pyelonephritis prior to admission. Consultants/Discussions held with other healthcare providers: -Hospitalist, Dr. Hart Disposition discussion held by myself with: -Patient Diagnosis: 1. Urinary tract infection, acute, multidrug-resistant 2. Subjective fever/chills, acute 3. Nausea, acute Disposition: Admission Devon Webster DO Emergency Medicine Past Med/Surg History Problem List (Updated 11/24/24 @ 23:10 by Devon Webster DO) Acute UTI (Acute) CAD (coronary artery disease) Moderate non-obstructive CAD per 2019 cardiac cath Diabetic retinopathy associated with type 1 diabetes mellitus Per records, pt denies Uncontrolled type 1 diabetes mellitus with hyperglycemia High glycation index; A1c typically about 2 points higher than average blood sugar would predict GERD (gastroesophageal reflux disease) Osteoporosis Hypertension (Chronic) Hypothyroidism Nondiabetic gastroparesis (Chronic) Osteoarthritis of both hips (Chronic) Mixed hyperlipidemia (Chronic) Presence of insulin pump (Chronic) t:slim Diabetic neuropathy associated with type 1 diabetes mellitus Medical History Acute left flank pain Urinary tract infection Type 1 diabetes mellitus Sepsis Antibiotic-resistant bacterial infection Recurrent pyelonephritis Recurrent urinary tract infection History of ESBL E. coli infection E coli bacteremia Headache Sphincter of Oddi dysfunction Gastroparesis Elevated LFTs History of COVID-19 08/2021 Age related osteoporosis Possible, prescribed Fosomax SARS-CoV-2 positive Anemia History of biliary stent insertion COVID-19 Abdominal pain Fever Bilateral hip joint arthritis Hx of diabetes with ketoacidosis (~05/14/20) RLS (restless legs syndrome) Hyperlipidemia Surgical History Status post right hip replacement Right DEE (12/22/20): SAB- L3 at [facility]. No issues noted per post-op anesthesia progress note. History of biliary stent insertion Since removed Status post total hip replacement, right Status post total hip replacement, left S/P ERCP ERCP (09/27/21): Grade 1 view, MAC#3, ETT 7.0 at [facility]. No issues noted per post-op anesthesia progress note. Hx of cardiac cath 2019 > no stents History of total left knee replacement History of cholecystectomy Family History Mother Family history of diabetes mellitus Other No significant family history Social History Smoking Status: Former smoker Tobacco Type: Cigarettes Second Hand Exposure: No; Do You Dip or Chew Tobacco: No; Hx Alcohol Use: No Hx Substance Use: No Preferred Language: German Communication Ability: Effective Visual Impairment: No Limitations Hearing Ability: Normal Director Learning And Development Required: No Beliefs That Will Affect Care: None marital status: / Current Living Situation: Family Current Living Situation Comment: son and granddaughter Feels Safe at Home: Yes Assistive Devices: Glasses Allergies Allergies Allergy/AdvReac Type Severity Reaction Status Date / Time Penicillins Allergy Severe Difficulty Verified 10/21/24 14:33 Breathing Sulfa (Sulfonamide Allergy Intermediate Hives Verified 10/21/24 14:33 Antibiotics) methenamine Allergy Unknown CAN'T Verified 10/21/24 14:33 REMEMBER Home Meds Home Medications Medication Instructions Recorded Confirmed cholecalciferol (vitamin D3) 50 50 mcg PO QAM 05/21/20 11/24/24 mcg (2,000 unit) capsule (Vitamin D3) alendronate 70 mg tablet 70 mg PO WK 09/27/21 11/24/24 subcutaneous insulin pump (t:slim 11/13/21 11/24/24 X2 Basal-IQ Insulin Pump) acetaminophen 500 mg capsule 1,000 mg PO Q6 PRN Pain 06/26/22 11/24/24 aspirin 81 mg tablet,delayed 81 mg PO DAILY 06/26/22 11/24/24 release (Raymond Low Dose Aspirin) kszuctq-elypjhqwsktqp-zjouicvj 250 1 tab PO Q6H PRN Headache 12/28/22 11/24/24 mg-250 mg-65 mg tablet (Excedrin Migraine) cranberry extract 425 mg capsule 425 mg PO DAILY 01/15/23 11/24/24 rosuvastatin 20 mg tablet 20 mg PO DAILY 06/26/23 11/24/24 ropinirole 0.5 mg tablet 0.5 mg PO HS 09/25/23 11/24/24 montelukast 10 mg tablet 10 mg PO HS 10/23/23 11/24/24 amlodipine 5 mg tablet (Norvasc) 5 mg PO QAM 07/01/24 11/24/24 irbesartan 300 mg tablet 300 mg PO DAILY 07/01/24 11/24/24 meloxicam 7.5 mg tablet 7.5 mg PO DAILY 07/01/24 11/24/24 Previous Rx's Medication Instructions Recorded Novolog FlexPen U-100 Insulin 100 See Rx Instructions subcut TID #30 05/05/22 unit/mL (3 mL) subcutaneous mL (insulin aspart U-100) pen needle, diabetic 32 gauge x #50 ea 12/10/22" (BD Shira 2nd Gen Pen Needle) gabapentin 100 mg capsule 100 mg PO TID #90 caps 12/25/22 pantoprazole 40 mg tablet,delayed 40 mg PO DAILY #90 tabs 12/25/22 release acetone (urine) test (Ketostix #50 ea 04/23/23 strips) glucagon 3 mg/actuation nasal 3 mg intranasal ONCE #2 ea 04/23/23 spray (Baqsimi) ibuprofen 800 mg tablet 800 mg PO Q8H PRN pain #90 tabs 12/09/23 ondansetron HCl 4 mg tablet 4 mg PO Q6 PRN nausea #20 tabs 01/06/24 levothyroxine 125 mcg tablet 125 mcg PO QAM #90 tabs 03/25/24 OneTouch Ultra Test (blood sugar #300 ea 04/21/24 diagnostic) Novolog U-100 Insulin aspart 100 60 unit (0.6 mL) continuous 08/26/24 unit/mL subcutaneous solution subcutaneous infusion DAILY #60 mL (insulin aspart U-100) benzonatate 100 mg capsule 100 mg PO TID PRN cough #30 caps 10/07/24 Results & Data (ED) Vital Signs Vital Signs - 24 hr 11/24/24 19:03 11/24/24 20:00 11/24/24 20:30 Temperature 37 C Temperature Source Temporal Artery Scan Pulse Rate 90 75 71 Pulse Rhythm Regular Pulse Strength Normal Respiratory Rate 19 18 20 Respiratory Effort / Characteristics Non-Labored Spontaneous Respiratory Depth Normal Respiratory Pattern Regular Blood Pressure 116/66 115/54 L 137/63 Blood Pressure Mean 82 68 96 Blood Pressure Position Sitting Pulse Oximetry 98 97 96 Oxygen Delivery Method Room Air Room Air Room Air Sepsis Recent Fever Within 48 Hours No Sepsis New/Unexplained Change in Mental Status N/A Sepsis Action Taken by Nursing No Action Required 11/24/24 21:00 11/24/24 21:31 11/24/24 22:00 Temperature Temperature Source Pulse Rate 75 70 83 Pulse Rhythm Pulse Strength Respiratory Rate 20 20 17 Respiratory Effort / Characteristics Respiratory Depth Respiratory Pattern Blood Pressure 113/82 123/64 118/57 L Blood Pressure Mean 87 92 83 Blood Pressure Position Pulse Oximetry 97 98 97 Oxygen Delivery Method Room Air Room Air Room Air Sepsis Recent Fever Within 48 Hours Sepsis New/Unexplained Change in Mental Status Sepsis Action Taken by Nursing Laboratory Data 11/24/24 19:29 11/24/24 19:29 Lab Results 11/24/24 Range/Units 19:29 WBC 8.51 (4.8-10.8) K/ul RBC 3.82 L (4.20-5.40) M/uL Hgb 10.9 L (12.0-16.0) g/dl Hct 33.6 L (37.0-47.0) % MCV 88.0 (80.0-100.0) fL MCH 28.5 (25.0-34.0) pg MCHC 32.4 (32.0-36.0) g/dL RDW Std Deviation 43.0 (36.4-46.3) fL RDW Coeff of Kandy 13.3 (11.5-14.5) % Plt Count 173 (130-400) K/uL MPV 10.5 (9.4-12.4) fL Immature Gran % (Auto) 0.5 % Neut % (Auto) 67.8 % Lymph % (Auto) 24.6 % Desha % (Auto) 6.6 % Eos % (Auto) 0.0 % Baso % (Auto) 0.5 % Neut # (Auto) 5.78 (1.40-6.50) K/uL Lymph # (Auto) 2.09 (1.20-3.40) K/uL Desha # (Auto) 0.56 (0.11-0.59) K/uL Eos # (Auto) 0.00 (0.00-0.50) K/uL Baso # (Auto) 0.04 (0.00-0.20) K/uL Immature Gran # (Auto) 0.04 (0.01-0.20) K/uL Sodium 136 (136-145) mmol/L Potassium 3.3 L (3.5-5.1) mmol/L Chloride 105 (98-107) mmol/L Carbon Dioxide 26 (21-32) mmol/L Anion Gap 5 (3-11) BUN 13 (6-23) mg/dl Creatinine 0.95 (0.6-1.2) mg/dl Est Cr Clr Drug Dosing 55.1 ml/min eGFR 65.67 BUN/Creatinine Ratio 13.7 (10-20) Glucose 219 H (70-99(Fasting)) mg/dl Calcium 8.7 (8.6-10.3) mg/dl Total Bilirubin 0.5 (0.2-1.0) mg/dl AST 16 (13-39) U/L ALT 17 (7-52) U/L Alkaline Phosphatase 75 (34-104) U/L Total Protein 7.0 (6.0-8.3) gm/dl Albumin 3.9 (3.4-5.0) gm/dl Globulin 3.1 (2.5-4.0) gm/dl Albumin/Globulin Ratio 1.3 (0.9-2) Administered Medications Discontinued Medications Ertapenem (Invanz 1000mg) 1,000 mg in 10 mls @ 2 mls/min IV NOW STA Stop: 11/24/24 19:52 Last Admin: 11/24/24 20:46 Dose: 2 mls/min Documented By: ALPHONSE Sodium Chloride (Nss) 1,000 mls @ 999 mls/hr IV .Q1H1M ONE Stop: 11/24/24 20:50 Last Infusion: 11/24/24 21:42 Dose: Infused Documented By: Admin: 11/24/24 20:46 Dose: 999 mls/hr Documented By: ALPHONSE Acetaminophen (Ofirmev) 1,000 mg in 100 mls @ 400 mls/hr IV NOW STA Stop: 11/24/24 21:38 Last Infusion: 11/24/24 22:15 Dose: Infused Documented By: Admin: 11/24/24 21:55 Dose: 400 mls/hr Documented By: ALPHONSE Ioversol (Optiray 320 100ml) 89 ml IV ONCE ONE Stop: 11/24/24 21:47 Last Admin: 11/24/24 21:47 Dose: 89 ml Documented By: NAMRATA Ondansetron HCl (Ondansetron Inj 2 Mg/Ml 2 Ml Vial) 4 mg IV NOW STA Stop: 11/24/24 21:47 Last Admin: 11/24/24 21:55 Dose: 4 mg Documented By: ALPHONSE Discharge Plan Visit Data Chief Complaint: Need IV Start Stated Complaint: UTI, E COLI, IV ANTIBIOTICS ED Provider: Dveon Webster Discharge Problem: Acute UTI Discharge Instructions Interventions: ED Discharge Assessment Last Done: 11/24/24 22:28 Forms Stand Alone Forms: [facility] Prescriptions Prescriptions: No Action insulin aspart U-100 [Novolog FlexPen U-100 Insulin] 100 unit/mL (3 mL) insulin pen See Rx Instructions subcut TID Qty: 30 2RF Rx Instructions: in case of pump failure TDD 0 units subcut three times a day (DME) pen needle, diabetic [BD Shira 2nd Gen Pen Needle] 32 gauge x 5/32" needle See Rx Instructions miscellaneous .MEDSUPPLY Qty: 50 3RF Rx Instructions: Use a new pen needle each night ibuprofen 800 mg tablet 800 mg PO Q8H PRN (Reason: pain) Qty: 90 1RF ondansetron HCl 4 mg tablet 4 mg PO Q6 PRN (Reason: nausea) Qty: 20 1RF (DME) OneTouch Ultra Test Strip See Rx Instructions .ROUTE .MEDSUPPLY Qty: 300 3RF Rx Instructions: test 3 times daily insulin aspart U-100 [Novolog U-100 Insulin aspart] 100 unit/mL solution 60 unit continuous subcutaneous infusion DAILY Qty: 60 3RF rosuvastatin 20 mg tablet 20 mg PO DAILY cranberry extract 425 mg capsule 425 mg PO DAILY Rx Instructions: administer with a meal levothyroxine 125 mcg tablet 125 mcg PO QAM Qty: 90 3RF meloxicam 7.5 mg tablet 7.5 mg PO DAILY irbesartan 300 mg tablet 300 mg PO DAILY amlodipine [Norvasc] 5 mg tablet 5 mg PO QAM (DME) Ketostix Strip See Rx Instructions miscellaneous .MEDSUPPLY Qty: 50 5RF Rx Instructions: check if blood sugars are > 250 for 4 to 6 hours Baqsimi 3 mg/actuation spray,non-aerosol 3 mg intranasal ONCE Qty: 2 5RF ropinirole 0.5 mg tablet 0.5 mg PO HS (DME) t:slim X2 Basal-IQ Insulin Body Repairer Misc See Rx Instructions .Route Rx Instructions: As directed gabapentin 100 mg capsule 100 mg PO TID Qty: 90 2RF pantoprazole 40 mg tablet,delayed release (DR/EC) 40 mg PO DAILY Qty: 90 3RF cholecalciferol (vitamin D3) [Vitamin D3] 50 mcg (2,000 unit) Capsule 50 mcg PO QAM alendronate 70 mg tablet 70 mg PO WK Patient Comments: SUNDAYS Rx Instructions: Thursday Excedrin Migraine 250-250-65 mg Tablet 1 tab PO Q6H PRN (Reason: Headache) aspirin [Raymond Low Dose Aspirin] 81 mg tablet,delayed release (DR/EC) 81 mg PO DAILY acetaminophen 500 mg capsule 1,000 mg PO Q6 PRN (Reason: Pain) montelukast 10 mg tablet 10 mg PO HS benzonatate 100 mg Capsule 100 mg PO TID PRN (Reason: cough) Qty: 30 0RF Referrals Referrals: Manasa Galan DO [Primary Care Provider] -
[2024-11-24 20:01] LABS: Albumin Globulin Ratio 1.3 (0.9-2); Albumin Level 3.9 gm/dl (3.4-5.0); BUN Creatinine Ratio 13.7 (10-20); Bilirubin,Total 0.5 mg/dl (0.2-1.0); Calcium 8.7 mg/dl (8.6-10.3); Creatinine Clr Calc Pharmacy 55.1 ml/min; Globulin 3.1 gm/dl (2.5-4.0); Potassium 3.3 mmol/L (3.5-5.1)
[2024-11-24] MEDS: ERTAPENEM 1000MG 1,000 MG/10 ML SYR IV STA (20:46)
[2024-11-24] MEDS: SODIUM CHLORIDE 0.9% 1,000 ML IV ONE (20:46)
--- NOTE | 2024-11-24 21:30 | History & Physical Report ---
Date of Service November 24, 2024 Assessment & Plan (1) Acute UTI: (2) Uncontrolled type 1 diabetes mellitus with hyperglycemia: (3) Pyelonephritis: (4) ESBL (extended spectrum beta-lactamase) producing bacteria infection: Plan 69-year-old female PMHx T1DM, GERD, HTN, hypothyroidism, recurrent UTIs with history of ESBL, and history of pyelonephritis presenting to ED for UTI. ED evaluation reveals no leukocytosis, H&H 10.9/33.6, CMP potassium 3.3, normal renal function, glucose 219; CTAP pending; provided with 1L NSS, ertapenem 1 g IV and acetaminophen 1 g IV in ED. #UTI/ pyelonephritis Patient with long history of ESBL E. coli resulting in UTIs and pyelonephritis, ongoing since 2019. Feels the same as prior. Completed prior course of IV ertapenem (10 day duration). - CBC without leukocytosis; CMP with normal renal function - CBC, BMP am - Cx from 11/22/2024 grew E. coli ESBL; 11/24/2024 UA pending; pending cx - CTAP pending read - Ertapenem IV - Gentle IVF @ 80 mL/hr LR - Zofran prn N/V, Acetaminophen prn pain/fever #T1DM H/o DMT1; with Dexcom in place. - Most recent A1C 09/2024 at 7.7% - Continue home insulin - may use own pump - BSG daily, monitor via patient otherwise - Adjust regimen as needed #Anemia- Chronic, stable, Hgb baseline #GERD- Pantoprazole #HLD- Rosuvastatin #Hypothyroidism- Levothyroxine #HTN- Amlodipine, irebesartan Dispo: Admit, med/sx VTE Prophylaxis: SCDs This document was dictated utilizing [employer]. Please excuse any grammatical errors that may be secondary to use of this software. Admission and Anticipated Discharge Date Admission Date: 11/24/2024 History of Present Illness Chief Complaint: UTI Primary Care Provider: Manasa Galan DO 69-year-old female PMHx T1DM, GERD, HTN, hypothyroidism, recurrent UTIs with history of ESBL, and history of pyelonephritis presenting to ED for UTI. Most recent hospital admission 10/05/2024 until 10/07/2024 for UTI and pyelonephritis. Presenting for known UTI, was started on abx on 2 days [employer] and cultures resulted in E.coli ESBL. Patient was told to come back to hospital. Having fevers, TMax 102. Does feel that she may be having worsening abdominal pain and back pain, no chills. Had multiple episodes of vomiting 1 day [employer] and with ongoing nausea. Denies chest pain, SOB, palpitations, D/C, numbness/tingling, weakness, or syncope. States this feels similar to prior UTIs. ED evaluation reveals no leukocytosis, H&H 10.9/33.6, CMP potassium 3.3, normal renal function, glucose 219; CTAP pending; provided with 1L NSS, ertapenem 1 g IV and acetaminophen 1 g IV in ED. Please see Dr. Hart's attestation for adjustments/additions to treatment plan. Allergies Allergy/AdvReac Type Severity Reaction Status Date / Time Penicillins Allergy Severe Difficulty Verified 10/21/24 14:33 Breathing Sulfa (Sulfonamide Allergy Intermediate Hives Verified 10/21/24 14:33 Antibiotics) methenamine Allergy Unknown CAN'T Verified 10/21/24 14:33 REMEMBER Home Medications Medication Instructions Recorded Confirmed Type cholecalciferol (vitamin D3) 50 50 mcg PO QAM 05/21/20 11/24/24 History mcg (2,000 unit) capsule (Vitamin D3) alendronate 70 mg tablet 70 mg PO WK 09/27/21 11/24/24 History subcutaneous insulin pump (t:slim 11/13/21 11/24/24 History X2 Basal-IQ Insulin Pump) Novolog FlexPen U-100 Insulin 100 See Rx Instructions subcut TID #30 05/05/22 11/24/24 Rx unit/mL (3 mL) subcutaneous mL (insulin aspart U-100) acetaminophen 500 mg capsule 1,000 mg PO Q6 PRN Pain 06/26/22 11/24/24 History aspirin 81 mg tablet,delayed 81 mg PO DAILY 06/26/22 11/24/24 History release (Raymond Low Dose Aspirin) pen needle, diabetic 32 gauge x #50 ea 12/10/22 11/24/24 Rx 5/32" (BD Shira 2nd Gen Pen Needle) gabapentin 100 mg capsule 100 mg PO TID #90 caps 12/25/22 11/24/24 Rx pantoprazole 40 mg tablet,delayed 40 mg PO DAILY #90 tabs 12/25/22 11/24/24 Rx release ribuyxm-gucnoubisnlho-ayribtoo 250 1 tab PO Q6H PRN Headache 12/28/22 11/24/24 H istory mg-250 mg-65 mg tablet (Excedrin Migraine) cranberry extract 425 mg capsule 425 mg PO DAILY 01/15/23 11/24/24 History acetone (urine) test (Ketostix #50 ea 04/23/23 11/24/24 Rx strips) glucagon 3 mg/actuation nasal 3 mg intranasal ONCE #2 ea 04/23/23 11/24/24 Rx spray (Baqsimi) rosuvastatin 20 mg tablet 20 mg PO DAILY 06/26/23 11/24/24 History ropinirole 0.5 mg tablet 0.5 mg PO HS 09/25/23 11/24/24 History montelukast 10 mg tablet 10 mg PO HS 10/23/23 11/24/24 History ibuprofen 800 mg tablet 800 mg PO Q8H PRN pain #90 tabs 12/09/23 11/24/24 Rx ondansetron HCl 4 mg tablet 4 mg PO Q6 PRN nausea #20 tabs 01/06/24 11/24/24 Rx levothyroxine 125 mcg tablet 125 mcg PO QAM #90 tabs 03/25/24 11/24/24 Rx OneTouch Ultra Test (blood sugar #300 ea 04/21/24 11/24/24 Rx diagnostic) amlodipine 5 mg tablet (Norvasc) 5 mg PO QAM 07/01/24 11/24/24 History irbesartan 300 mg tablet 300 mg PO DAILY 07/01/24 11/24/24 History meloxicam 7.5 mg tablet 7.5 mg PO DAILY 07/01/24 11/24/24 History Novolog U-100 Insulin aspart 100 60 unit (0.6 mL) continuous 08/26/24 11/24/24 Rx unit/mL subcutaneous solution subcutaneous infusion DAILY #60 mL (insulin aspart U-100) benzonatate 100 mg capsule 100 mg PO TID PRN cough #30 caps 10/07/24 11/24/24 Rx Past Med/Surg History Problem List (Updated 11/25/24 @ 01:18 by Harley Hart MD) ESBL (extended spectrum beta-lactamase) producing bacteria infection Pyelonephritis Acute UTI (Acute) CAD (coronary artery disease) Moderate non-obstructive CAD per 2019 cardiac cath Diabetic retinopathy associated with type 1 diabetes mellitus Per records, pt denies Uncontrolled type 1 diabetes mellitus with hyperglycemia High glycation index; A1c typically about 2 points higher than average blood sugar would predict GERD (gastroesophageal reflux disease) Osteoporosis Hypertension (Chronic) Hypothyroidism Nondiabetic gastroparesis (Chronic) Osteoarthritis of both hips (Chronic) Mixed hyperlipidemia (Chronic) Presence of insulin pump (Chronic) t:slim Diabetic neuropathy associated with type 1 diabetes mellitus Medical History Acute left flank pain Urinary tract infection Type 1 diabetes mellitus Sepsis Antibiotic-resistant bacterial infection Recurrent pyelonephritis Recurrent urinary tract infection History of ESBL E. coli infection E coli bacteremia Headache Sphincter of Oddi dysfunction Gastroparesis Elevated LFTs History of COVID-19 08/2021 Age related osteoporosis Possible, prescribed Fosomax SARS-CoV-2 positive Anemia History of biliary stent insertion COVID-19 Abdominal pain Fever Bilateral hip joint arthritis Hx of diabetes with ketoacidosis (~05/14/20) RLS (restless legs syndrome) Hyperlipidemia Surgical History Status post right hip replacement Right DEE (12/22/20): SAB- L3 at [facility]. No issues noted per post-op anesthesia progress note. History of biliary stent insertion Since removed Status post total hip replacement, right Status post total hip replacement, left S/P ERCP ERCP (09/27/21): Grade 1 view, MAC#3, ETT 7.0 at [facility]. No issues noted per post-op anesthesia progress note. Hx of cardiac cath 2019 > no stents History of total left knee replacement History of cholecystectomy Family History Mother Family history of diabetes mellitus Other No significant family history Social History Smoking Status: Never smoker Tobacco Type: Cigarettes Second Hand Exposure: No; Do You Dip or Chew Tobacco: No; Hx Alcohol Use: No Hx Substance Use: No Preferred Language: Mexican Communication Ability: Effective Visual Impairment: No Limitations Hearing Ability: Normal Corporate Librarian Required: No Beliefs That Will Affect Care: None marital status: / Current Living Situation: Family Current Living Situation Comment: son and granddaughter Other Information That Helps Us Care for You: No Feels Safe at Home: Yes Safety Concerns: Feels Safe At This Time Assistive Devices: Denture - Upper and Glasses Review of Systems Review of Systems: All systems reviewed & are unremarkable except as noted in Subjective Physical Exam Physical Exam: General: No acute distress Skin: Warm and dry Head: Normocephalic, atraumatic Eyes: PERRL, conjunctivae clear, sclera non-icteric; wearing glasses ENT: External ear and ear canal without swelling; nose atraumatic; good dentition, tongue normal appearance, pharynx normal Neck: Supple, no LAD Cardio: RRR, no M/G/R, S1 and S2 normal Resp: No respiratory distress, Lungs CTA in all lobes bilaterally, no wheezes, rales, or rhonchi Abdomen: Soft, symmetric, slight tenderness to palpation lower abdomen, no guarding; No masses or hepatosplenomegaly; Bowel sounds normoactive; Some CVA tenderness MSK: No deformities; pulses palpable and equal; no edema. Neuro: Awake, alert; Sensation intact bilaterally; CN grossly intact Psych: Appropriate mood and affect; good judgement and insight. Results & Data Results & Data Vital Signs (Past 12 Hours) Vital Signs Temp Pulse Resp BP Pulse Ox O2 Del Method 11/24/24 20:30 71 20 137/63 96 Room Air 11/24/24 20:00 75 18 115/54 L 97 Room Air 11/24/24 19:03 37 C 90 19 116/66 98 Room Air Laboratory Results 11/24/24 20:54 Aerobic Blood Culture - Pending Blood Anaerobic Blood Culture - Pending 11/24/24 20:03 Aerobic Blood Culture - Pending Blood Anaerobic Blood Culture - Pending 11/24/24 19:29 WBC 8.51 RBC 3.82 L Hgb 10.9 L Hct 33.6 L MCV 88.0 MCH 28.5 MCHC 32.4 RDW Std Deviation 43.0 RDW Coeff of Kandy 13.3 Plt Count 173 MPV 10.5 Immature Gran % (Auto) 0.5 Neut % (Auto) 67.8 Lymph % (Auto) 24.6 Kimble % (Auto) 6.6 Eos % (Auto) 0.0 Baso % (Auto) 0.5 Neut # (Auto) 5.78 Lymph # (Auto) 2.09 Kimble # (Auto) 0.56 Eos # (Auto) 0.00 Baso # (Auto) 0.04 Immature Gran # (Auto) 0.04 Sodium 136 Potassium 3.3 L Chloride 105 Carbon Dioxide 26 Anion Gap 5 BUN 13 Creatinine 0.95 Est Cr Clr Drug Dosing 55.1 eGFR 65.67 BUN/Creatinine Ratio 13.7 Glucose 219 H Calcium 8.7 Total Bilirubin 0.5 AST 16 ALT 17 Alkaline Phosphatase 75 Total Protein 7.0 Albumin 3.9 Globulin 3.1 Albumin/Globulin Ratio 1.3 Medications Administered NSS 1L Ertapenem 1 g IV Acetaminophen 1 g IV Code Status & VTE Plan Code Status DNR/DNI Discussed in detail what "DNR/DNI" entails; patient understood fully. All questions asked and answered. Patient agreeable to DNR/DNI status. Supervising Physician Co-Signing Physician Notes I personally saw and examined the patient. I independently reviewed the labs, EKG, imaging, problem list, medication list, past medical history and family history. I verified all martinez points and agree with Sandra Hills PA-C with the following exceptions and/or additions: 69 year old female presents to the ER due to recent urine culture growing ESBL E. coli. O/E Left CVA tenderness A/P Pyelonephritis with ESBL E. coli - IV ertapenem, will need to be set up with [facility] again for ongoing treatment PG Care Time/CCT Total # of Minutes Spent Total Time Spent with Patient: Total time spent is greater than 50% in coordination of care (as documented) at patient's floor/unit and/or counseling patient: Coding Level of Care Code 03216 INT INP/OBS CARE 3/75MIN Diagnoses Acute UTI N39.0 Uncontrolled type 1 diabetes mellitus with hyperglycemia E10.65 Pyelonephritis N12 ESBL (extended spectrum beta-lactamase) producing bacteria infection A49.9; Z16.12
[2024-11-24] MEDS: OPTIRAY 320 100ml IV ONE (21:47)
[2024-11-24] MEDS: ACETAMINOPHEN 1,000 MG/100 ML VIAL IV STA (21:55)
[2024-11-24] MEDS: ONDANSETRON INJ 2 MG/ML 2 ML VIAL IV STA (21:55)
[2024-11-24] MEDS ORDERED: GLUCAGON FOR INJ 1 MG VIAL SQ PRN (22:31)
[2024-11-24] MEDS ORDERED: GLUCOSE 10 TAB/TUBE PO PRN (22:31)
[2024-11-24] MEDS ORDERED: DEXTROSE 50% 50 ML SYRINGE IV PRN (22:31)
[2024-11-24] MEDS ORDERED: INSULIN ASPART 100 UNITS/ML VIAL SC PRN (22:31)
[2024-11-24] MEDS ORDERED: GLUCOSE 40% GEL 15 GM TUBE PO PRN (22:31)
[2024-11-24] MEDS ORDERED: CARBOHYDRATES FOR HYPOGLYCEMIA PO PRN (22:31)
[2024-11-24 23:10] LABS: Bilirubin Urine Negative (Negative); Blood Urine Negative (Negative); Color Urine Yellow; Glucose Urine UA Trace (Negative); Ketones Urine Negative (Negative); Leukocyte Esterase Urine Negative (Negative); Nitrite Urine Negative (Negative); Protein Urine Negative (Negative); Specific Gravity Urine 1.015 (1.000-1.030); Urobilinogen Urine Negative (Negative)
[2024-11-24 23:11] LABS: Appearance Urine Clear (Clear)
--- NOTE | 2024-11-24 23:33 | CT Scan Report ---
Exam(s): CT ABDOMEN + PELVIS With Contrast IV Amt: 89 ml optiray 320 EXAM: CT Abdomen and Pelvis With Intravenous Contrast CLINICAL HISTORY: Reason for exam: L flank pain. TECHNIQUE: Axial computed tomography images of the abdomen and pelvis with intravenous contrast. CTDI is 22 mGy and DLP is 943 mGy-cm. Automated exposure control was utilized for the study. A dose lowering technique was utilized adhering to the principles of ALARA. CONTRAST: Patient received 89 ml optiray 320 of IV contrast COMPARISON: 11/22/24 FINDINGS: Lung bases: Unremarkable. ABDOMEN: Liver: Subcentimeter hepatic cyst. Gallbladder and bile ducts: Cholecystectomy. Enlarged common bile duct, stable from prior, presumed reservoir effect. Pancreas: Unremarkable. No mass. No ductal dilation. Spleen: Calcified splenic granulomas. Adrenals: Unremarkable. No mass. Kidneys and ureters: Mildly heterogeneous enhancement of left kidney with perinephric stranding as well as urothelial thickening in the left renal pelvis. There is a 1.5 cm complex left kidney lesion measuring 30 HU. No hydronephrosis. Stomach and bowel: Unremarkable. No mucosal thickening. No bowel obstruction. PELVIS: Appendix: Appendix not visualized. Bladder: Unremarkable. No mass. Reproductive: Hysterectomy. ABDOMEN and PELVIS: Intraperitoneal space: Unremarkable. No free air, significant free fluid, or fluid collection. Bones/joints: No acute fracture or dislocation. Disc degeneration L5-S1. Bilateral total hip arthroplasties. Soft tissues: Tiny fat-containing umbilical hernia. Vasculature: Atherosclerosis. No abdominal aortic aneurysm. Lymph nodes: Unremarkable. No enlarged lymph nodes. IMPRESSION: 1. Mildly heterogeneous enhancement of left kidney with perinephric stranding as well as urothelial thickening in the left renal pelvis. Appearance suggests pyelonephritis and should be correlated with urinalysis. 2. There is a 1.5 cm complex left kidney lesion measuring 30 HU. This could represent renal phlegmon-abscess in the setting of pyelonephritis. Other complex cyst is a differential consideration. Imaging follow-up recommended. Electronically signed by: Derick Lopez M.D. 11/24/24 23:32 PM
[2024-11-24] MEDS ORDERED: ONDANSETRON INJ 2 MG/ML 2 ML VIAL IV PRN (23:48)
[2024-11-24] MEDS ORDERED: ACETAMINOPHEN 325 MG TAB PO PRN (23:48)
[2024-11-24] MEDS ORDERED: MELATONIN 3 MG TAB PO PRN (23:48)
[2024-11-24] MEDS ORDERED: POLYETHYLENE (MIRALAX) 17 GM PACK PO PRN (23:48)
[2024-11-25] MEDS: LACTATED RINGER'S 1,000 ML IV SCH (00:07)
[2024-11-25] MEDS ORDERED: BENZONATATE 100 MG CAPSULE PO PRN (01:48)
[2024-11-25] MEDS ORDERED: NON-FORMULARY MEDICATION (Aspirin-Acetaminophen-Caffeine [Excedrin Migraine] 250-250-65 mg PO PRN (01:48)
[2024-11-25] MEDS ORDERED: ONDANSETRON 4 MG OD TAB PO PRN (02:13)
[2024-11-25] MEDS: LEVOTHYROXINE SODIUM 125 MCG TABLET PO SCH (05:56)
[2024-11-25] MEDS: INSULIN, Rapid-Acting PUMP SC SCH (08:11)
[2024-11-25] MEDS: ACETAMINOPHEN 500 MG TAB PO PRN (08:12)
[2024-11-25] MEDS: amLODIPine BESYLATE 5 MG TAB PO SCH (08:45)
[2024-11-25] MEDS: ROSUVASTATIN CALCIUM 20 MG TAB PO SCH (08:45)
[2024-11-25] MEDS: LOSARTAN POTASSIUM 50 MG TAB PO SCH (08:45)
[2024-11-25] MEDS: MELOXICAM 7.5 MG TAB PO SCH (08:45)
[2024-11-25] MEDS: PANTOprazole 40 MG TAB PO SCH (08:45)
[2024-11-25] MEDS: ASPIRIN 81 MG ECTAB PO SCH (08:45)
[2024-11-25] MEDS: CHOLECALCIFEROL 25 MCG (1000 UNITS) TAB PO SCH (08:45)
[2024-11-25] MEDS: GABAPENTIN 100 MG CAP PO SCH (08:45)
[2024-11-25 09:37] LABS: Hematocrit (blood only) 30.7 % (37.0-47.0); Mean Corpuscular Hemoglobin 28.7 pg (25.0-34.0); Mean Corpuscular Hgb Conc 32.6 g/dL (32.0-36.0); Mean Platelet Volume 10.6 fL (9.4-12.4); Platelet Count 155 K/uL (130-400); RDW Coefficient of Variation 13.2 % (11.5-14.5); RDW Standard Deviation 42.1 fL (36.4-46.3); Red Blood Count 3.49 M/uL (4.20-5.40); White Blood Count 6.42 K/ul (4.8-10.8)
[2024-11-25 09:40] LABS: BUN Creatinine Ratio 8.3 (10-20); C Reactive Protein 3.7 mg/dl (0-0.5); Calcium 8.2 mg/dl (8.6-10.3); Creatinine Clr Calc Pharmacy 72.8 ml/min; Magnesium 2.1 mg/dl (1.7-2.4); Phosphorus 2.4 mg/dl (2.5-4.9); Potassium 3.6 mmol/L (3.5-5.1)
[2024-11-25] MEDS: ADVANCED PROBIOTIC 625 MG CAPSULE PO SCH (11:03)
--- NOTE | 2024-11-25 14:23 | Infectious Disease Consult ---
Date of Consultation November 25, 2024 Assessment & Plan (1) ESBL (extended spectrum beta-lactamase) producing bacteria infection: (2) Pyelonephritis: (3) Renal abscess: Plan 69yo F with h/o T1DM, CAD, hypothyroidism, bl DEE, HTN, HLD recurrent UTI/pyelo with bacteremia 2/2 ESBL E coli with multiple admissions since 2021, most recently admitted 10/05-10/07 with pyelo 2/2 ESBL E coli s/p ertapenem until 10/19, previously seen by urology (per last note 2022, given abrupt nature of symptom onset with her UTIs, they were unable to manage UTIs as outpatient) as well as followed with ID, intolerance to methenamine who presented on 11/24 with UTI due to ESBL E coli. Recently seen by PCP and in ED on 11/22 with back and abdominal pain, fevers, vomiting. Prescribed Macrobid at that time. On admission, she was afebrile, vss. Initial labs with WBC 8.51, Cr 0.95, LFT wnl. UA from 11/22 with > 50 WBC. UA 11/24 negative. CTAP w IV contrast on 11/24 showed mild heterogenous enhancement of left kidney with perinephric stranding, urothelial thickening in left renal pelvis; 1.5cm complex left kidney lesions could represent renal phlegmon-abscess in setting of pyelonephritis. She was started on ertapenem. ID consulted 11/25. Per chart, she reported worsening symptoms. Unfortunately, she has had recurrent episodes of pyelo/UTI with the same organism and has been difficult to control. It seems based on urology note from 2022, she had been seeing outpatient ID. Will need to ask patient more about outpatient management of recurrent episodes, but no telepresenter is available at this time. For current infection, continue on ertapenem for ESBL E coli isolated on 11/22. Note it was sensitive to Macrobid so it could be the reason why UA is negative this admission, though macrobid is inadequate for upper tract infections. She also has a 1.5cm renal lesion which could be abscess/phlegmon, but is quite small so will hold off on drainage. I dont see this noted in her prior CTAP from Sep 2024. # Left pyelonephritis with c/f 1.5cm left renal phlegmon-abscess # Recent ESBL E coli on UCx # Recurrent UTIs # H/o T1DM - will hold off on drainage given small size of ?abscess/phlegmon - f/u blood cx - continue ertapenem 1g IV daily - if BCX negative and clinically improving, then plan will be for ertapenem 1g IV daily x at least 2-3 weeks (starting 11/24) with repeat CTAP w IV contrast obtained towards the end of therapy to ensure abscess resolution before discontinuing abx - monitor weekly CBC w diff, BMP, LFTs while on IV abx - she should have close f/u with outpatient ID - management of recurrent UTIs would need to be coordinated with her outpatient provider based on what she has previously tried ID service will continue to follow. Please note that there will be no ID notes over the weekend. If questions or concerns arise, please contact the Infectious Disease Call Center and ask to speak with the covering ID physician. Dr. Rizvi will take over on Thursday. Faith Gomez MD [facility], Division of Infectious Diseases Consultation Information This patient recommendation is based on a telemedicine consult request which was completed asynchronously through chart review and information provided by the primary physician. The patient was not seen or examined today. The evaluation is consultative in nature and all patient care and treatment decisions can either be accepted or rejected by the patient's primary hospital-based treating physician using their own independent medical judgment for their patient. [facility] contact information: Please call ID Connect Call Center . (Phone Number For Physician Use Only) Time Spent Reviewing Chart: 31+ minutes History of Present Illness Reason for Consultation: UTI Attending Physician: Anibal Manuel History of Present Illness 69yo F with h/o T1DM, CAD, hypothyroidism, bl DEE, HTN, HLD recurrent UTI/pyelo with bacteremia 2/2 ESBL E coli with multiple admissions since 2021, most recently admitted 10/05-10/07 with pyelo 2/2 ESBL E coli s/p ertapenem until 10/19, previously seen by urology (per last note 2022, given abrupt nature of symptom onset with her UTIs, they were unable to manage UTIs as outpatient) as well as followed with ID, intolerance to methenamine who presented on 11/24 with UTI due to an ESBL organisms. She had been seen by PCP and had reported fevers to 102, shaking, back pain, and vomiting on 11/22. She had a positive UA and was prescribed Macrobid x 5d and referred to ED, where w/u showed leukocytosis to 15 but CTAP negative. She was discharged from ED but returned after UCx grew ESBL E coli. She reported worsening abdominal pain and back pain, multiple episodes of vomiting. On admission, she was afebrile, vss. Initial labs with WBC 8.51, Cr 0.95, LFT wnl. UA from 11/22 with > 50 WBC. UA 11/24 negative. CTAP w IV contrast on 11/24 showed mild heterogenous enhancement of left kidney with perinephric stranding, urothelial thickening in left renal pelvis; 1.5cm complex left kidney lesions could represent renal phlegmon-abscess in setting of pyelonephritis. She was started on ertapenem. ID consulted 11/25. No telepersenter available at this time. Allergies Allergy/AdvReac Type Severity Reaction Status Date / Time Penicillins Allergy Severe Difficulty Verified 10/21/24 14:33 Breathing Sulfa (Sulfonamide Allergy Intermediate Hives Verified 10/21/24 14:33 Antibiotics) methenamine Allergy Unknown CAN'T Verified 10/21/24 14:33 REMEMBER Home Medications Medication Instructions Recorded Confirmed Type cholecalciferol (vitamin D3) 50 50 mcg PO QAM 05/21/20 11/24/24 History mcg (2,000 unit) capsule (Vitamin D3) alendronate 70 mg tablet 70 mg PO WK 09/27/21 11/24/24 History subcutaneous insulin pump (t:slim 11/13/21 11/24/24 History X2 Basal-IQ Insulin Pump) Novolog FlexPen U-100 Insulin 100 See Rx Instructions subcut TID #30 05/05/22 11/24/24 Rx unit/mL (3 mL) subcutaneous mL (insulin aspart U-100) acetaminophen 500 mg capsule 1,000 mg PO Q6 PRN Pain 06/26/22 11/24/24 History aspirin 81 mg tablet,delayed 81 mg PO DAILY 06/26/22 11/24/24 History release (Raymond Low Dose Aspirin) pen needle, diabetic 32 gauge x #50 ea 12/10/22 11/24/24 Rx " (BD Shira 2nd Gen Pen Needle) gabapentin 100 mg capsule 100 mg PO TID #90 caps 12/25/22 11/24/24 Rx pantoprazole 40 mg tablet,delayed 40 mg PO DAILY #90 tabs 12/25/22 11/24/24 Rx release dbxadow-imynnsiuymlbf-rvdyiwhs 250 1 tab PO Q6H PRN Headache 12/28/22 11/24/24 History mg-250 mg-65 mg tablet (Excedrin Migraine) cranberry extract 425 mg capsule 425 mg PO DAILY 01/15/23 11/24/24 History acetone (urine) test (Ketostix #50 ea 04/23/23 11/24/24 Rx strips) glucagon 3 mg/actuation nasal 3 mg intranasal ONCE #2 ea 04/23/23 11/24/24 Rx spray (Baqsimi) rosuvastatin 20 mg tablet 20 mg PO DAILY 06/26/23 11/24/24 History ropinirole 0.5 mg tablet 0.5 mg PO HS 09/25/23 11/24/24 History montelukast 10 mg tablet 10 mg PO HS 10/23/23 11/24/24 History ibuprofen 800 mg tablet 800 mg PO Q8H PRN pain #90 tabs 12/09/23 11/24/24 Rx ondansetron HCl 4 mg tablet 4 mg PO Q6 PRN nausea #20 tabs 01/06/24 11/24/24 Rx levothyroxine 125 mcg tablet 125 mcg PO QAM #90 tabs 03/25/24 11/24/24 Rx OneTouch Ultra Test (blood sugar #300 ea 04/21/24 11/24/24 Rx diagnostic) amlodipine 5 mg tablet (Norvasc) 5 mg PO QAM 07/01/24 11/24/24 History irbesartan 300 mg tablet 300 mg PO DAILY 07/01/24 11/24/24 History meloxicam 7.5 mg tablet 7.5 mg PO DAILY 07/01/24 11/24/24 History Novolog U-100 Insulin aspart 100 60 unit (0.6 mL) continuous 08/26/24 11/24/24 Rx unit/mL subcutaneous solution subcutaneous infusion DAILY #60 mL (insulin aspart U-100) benzonatate 100 mg capsule 100 mg PO TID PRN cough #30 caps 10/07/24 11/24/24 Rx Patient History Medical History Acute left flank pain Urinary tract infection Type 1 diabetes mellitus Sepsis Antibiotic-resistant bacterial infection Recurrent pyelonephritis Recurrent urinary tract infection History of ESBL E. coli infection E coli bacteremia Headache Sphincter of Oddi dysfunction Gastroparesis Elevated LFTs History of COVID-19 08/2021 Age related osteoporosis Possible, prescribed Fosomax SARS-CoV-2 positive Anemia History of biliary stent insertion COVID-19 Abdominal pain Fever Bilateral hip joint arthritis Hx of diabetes with ketoacidosis (~05/14/20) RLS (restless legs syndrome) Hyperlipidemia Surgical History Status post right hip replacement Right DEE (12/22/20): SAB- L3 at [facility]. No issues noted per post-op anesthesia progress note. History of biliary stent insertion Since removed Status post total hip replacement, right Status post total hip replacement, left S/P ERCP ERCP (09/27/21): Grade 1 view, MAC#3, ETT 7.0 at [facility]. No issues noted per post-op anesthesia progress note. Hx of cardiac cath 2019 > no stents History of total left knee replacement History of cholecystectomy Family History Mother Family history of diabetes mellitus Other No significant family history Social History Smoking Status: Never smoker Tobacco Type: Cigarettes Second Hand Exposure: No; Do You Dip or Chew Tobacco: No; Hx Alcohol Use: No Hx Substance Use: No Preferred Language: Nigerian Communication Ability: Effective Visual Impairment: No Limitations Hearing Ability: Normal Physiology Teacher Required: No Beliefs That Will Affect Care: None marital status: / Current Living Situation: Family Current Living Situation Comment: son and granddaughter Feels Safe at Home: Yes Assistive Devices: None Results & Data Vital Signs (Past 12 Hours) Vital Signs Temp Pulse Resp BP Pulse Ox O2 Del Method 11/25/24 12:40 37.0 C 68 18 120/74 96 Room Air 11/25/24 07:57 36.8 C 70 18 120/74 94 Room Air Laboratory Results Labs reviewed. Diagnostic Findings Imaging reviewed.
[2024-11-25] MEDS: rOPINIRole HCL 0.25 MG TABLET PO SCH (20:42)
[2024-11-25] MEDS: MONTELUKAST SODIUM 10 MG TABLET PO SCH (20:42)
[2024-11-25] MEDS: ERTAPENEM 1000MG 1,000 MG/10 ML SYR IV SCH (20:49)
--- NOTE | 2024-11-25 22:40 | Hospitalist Progress Note ---
Date of Service November 25, 2024 Assessment & Plan (1) Acute UTI: (2) Uncontrolled type 1 diabetes mellitus with hyperglycemia: (3) Pyelonephritis: (4) ESBL (extended spectrum beta-lactamase) producing bacteria infection: Plan 69-year-old female PMHx T1DM, GERD, HTN, hypothyroidism, recurrent UTIs with history of ESBL, and history of pyelonephritis presenting to ED for UTI. ED evaluation reveals no leukocytosis, H&H 10.9/33.6, CMP potassium 3.3, normal renal function, glucose 219; CTAP pending; provided with 1L NSS, ertapenem 1 g IV and acetaminophen 1 g IV in ED. #UTI/ pyelonephritis Patient with long history of ESBL E. coli resulting in UTIs and pyelonephritis, ongoing since 2019. Feels the same as prior. Completed prior course of IV ertapenem (10 day duration). - CBC without leukocytosis; CMP with normal renal function - CBC, BMP am - Cx from 11/22/2024 grew E. coli ESBL; 11/24/2024 UA pending; pending cx - CTAP pending read - Ertapenem IV - Gentle IVF @ 80 mL/hr LR - Zofran prn N/V, Acetaminophen prn pain/fever -discussed with field nurse case manager, willneed to set up IV antibiotics as outpatient. Patient though recently had 10 day course of ertapenem, in this case will consult ID awaiting final recommendation. Patient is clinically improving, vitals stable, discuss with field nurse case manager #T1DM H/o DMT1; with Dexcom in place. - Most recent A1C 09/2024 at 7.7% - Continue home insulin - may use own pump - BSG daily, monitor via patient otherwise - Adjust regimen as needed #Anemia- Chronic, stable, Hgb baseline #GERD- Pantoprazole #HLD- Rosuvastatin #Hypothyroidism- Levothyroxine #HTN- Amlodipine, irebesartan Dispo: Admit, med/sx VTE Prophylaxis: SCDs Admission and Anticipated Discharge Date Admission Date: November 24, 2024 Subjective Patient reports no new symptoms. Review of Systems Review of Systems: All systems reviewed & are unremarkable except as noted in HPI & below Physical Exam Constitutional: WD/WN, vitals as above Neck: trachea midline, no thyromegaly Respiratory: normal respiratory effort Results & Data Results & Data Vital Signs (Past 12 Hours) Vital Signs Temp Pulse Pulse Resp BP BP Pulse Ox 11/25/24 21:24 36.6 C 62 16 122/71 94 11/25/24 15:25 37.2 C 68 16 106/64 96 11/25/24 12:40 37.0 C 68 18 120/74 96 O2 Del Method 11/25/24 21:24 Room Air 11/25/24 15:25 Room Air 11/25/24 12:40 Room Air PG Care Time/CCT Total # of Minutes Spent Total Time Spent with Patient: Total time spent is greater than 50% in coordination of care (as documented) at patient's floor/unit and/or counseling patient: Coding Level of Care Code 05436 SUB INP/OBS CARE 3/50MIN Diagnoses Acute UTI N39.0 Uncontrolled type 1 diabetes mellitus with hyperglycemia E10.65 Pyelonephritis N12 ESBL (extended spectrum beta-lactamase) producing bacteria infection A49.9; Z16.12
[2024-11-26 06:20] LABS: Hematocrit (blood only) 30.1 % (37.0-47.0); Hemoglobin 9.9 g/dl (12.0-16.0); Mean Corpuscular Hemoglobin 28.6 pg (25.0-34.0); Mean Corpuscular Hgb Conc 32.9 g/dL (32.0-36.0); Mean Platelet Volume 11.1 fL (9.4-12.4); Platelet Count 154 K/uL (130-400); RDW Coefficient of Variation 13.2 % (11.5-14.5); RDW Standard Deviation 41.8 fL (36.4-46.3); Red Blood Count 3.46 M/uL (4.20-5.40); White Blood Count 7.06 K/ul (4.8-10.8)
[2024-11-26 06:33] LABS: BUN Creatinine Ratio 12.7 (10-20); C Reactive Protein 2.64 mg/dl (0-0.5); Calcium 8.5 mg/dl (8.6-10.3); Creatinine Clr Calc Pharmacy 73.8 ml/min; Potassium 3.9 mmol/L (3.5-5.1)
--- NOTE | 2024-11-26 23:03 | Hospitalist Progress Note ---
Date of Service November 26, 2024 Assessment & Plan (1) Acute UTI: (2) Uncontrolled type 1 diabetes mellitus with hyperglycemia: (3) Pyelonephritis: (4) ESBL (extended spectrum beta-lactamase) producing bacteria infection: Plan 69-year-old female PMHx T1DM, GERD, HTN, hypothyroidism, recurrent UTIs with history of ESBL, and history of pyelonephritis presenting to ED for UTI. ED evaluation reveals no leukocytosis, H&H 10.9/33.6, CMP potassium 3.3, normal renal function, glucose 219; CTAP pending; provided with 1L NSS, ertapenem 1 g IV and acetaminophen 1 g IV in ED. #UTI/ pyelonephritis Patient with long history of ESBL E. coli resulting in UTIs and pyelonephritis, ongoing since 2019. Feels the same as prior. Completed prior course of IV ertapenem (10 day duration). - CBC without leukocytosis; CMP with normal renal function - CBC, BMP am - Cx from 11/22/2024 grew E. coli ESBL; - Ertapenem IV - Gentle IVF @ 80 mL/hr LR - Zofran prn N/V, Acetaminophen prn pain/fever -discussed with case checker, willneed to set up IV antibiotics as outpatient. ID now recommending ocean transportation intermediary antibiotics. Patient is clinically improving, vitals stable, discuss with case checker will set up MTU #T1DM H/o DMT1; with Dexcom in place. - Most recent A1C 09/2024 at 7.7% - Continue home insulin - may use own pump - BSG daily, monitor via patient otherwise - Adjust regimen as needed #Anemia- Chronic, stable, Hgb baseline #GERD- Pantoprazole #HLD- Rosuvastatin #Hypothyroidism- Levothyroxine #HTN- Amlodipine, irebesartan Dispo: Admit, med/sx VTE Prophylaxis: SCDs Admission and Anticipated Discharge Date Admission Date: November 24, 2024 Subjective 69 yo female reports no new symptoms. Physical Exam Constitutional: WD/WN, vitals as above Neck: trachea midline, no thyromegaly Respiratory: normal respiratory effort Results & Data Results & Data Vital Signs (Past 12 Hours) Vital Signs Temp Pulse Resp BP BP Pulse Ox O2 Del Method 11/26/24 20:04 36.8 C 64 16 122/66 95 Room Air 11/26/24 14:52 37 C 61 18 117/71 96 Room Air PG Care Time/CCT Total # of Minutes Spent Total Time Spent with Patient: Total time spent is greater than 50% in coordination of care (as documented) at patient's floor/unit and/or counseling patient: Coding Level of Care Code 84361 SUB INP/OBS CARE 3/50MIN Diagnoses Acute UTI N39.0 Uncontrolled type 1 diabetes mellitus with hyperglycemia E10.65 Pyelonephritis N12 ESBL (extended spectrum beta-lactamase) producing bacteria infection A49.9; Z16.12
--- NOTE | 2024-11-27 22:28 | Hospitalist Progress Note ---
Date of Service November 27, 2024 Assessment & Plan (1) Acute UTI: (2) Uncontrolled type 1 diabetes mellitus with hyperglycemia: (3) Pyelonephritis: (4) ESBL (extended spectrum beta-lactamase) producing bacteria infection: Plan 69-year-old female PMHx T1DM, GERD, HTN, hypothyroidism, recurrent UTIs with history of ESBL, and history of pyelonephritis presenting to ED for UTI. ED evaluation reveals no leukocytosis, H&H 10.9/33.6, CMP potassium 3.3, normal renal function, glucose 219; CTAP pending; provided with 1L NSS, ertapenem 1 g IV and acetaminophen 1 g IV in ED. #UTI/ pyelonephritis Patient with long history of ESBL E. coli resulting in UTIs and pyelonephritis, ongoing since 2019. Feels the same as prior. Completed prior course of IV ertapenem (10 day duration). - CBC without leukocytosis; CMP with normal renal function - CBC, BMP am - Cx from 11/22/2024 grew E. coli ESBL; - Ertapenem IV - Gentle IVF @ 80 mL/hr LR - Zofran prn N/V, Acetaminophen prn pain/fever -discussed with wrapper caser, willneed to set up IV antibiotics as outpatient. ID now recommending ad terminal makeup operator antibiotics. Patient is clinically improving, vitals stable, discuss with wrapper caser will set up MTU ordered ultrasound guided peripheral line. discussed with case management. moved timing of antibiotics to 1700. phylicia move tomorrows dose to noon. #T1DM H/o DMT1; with Dexcom in place. - Most recent A1C 09/2024 at 7.7% - Continue home insulin - may use own pump - BSG daily, monitor via patient otherwise - Adjust regimen as needed #Anemia- Chronic, stable, Hgb baseline #GERD- Pantoprazole #HLD- Rosuvastatin #Hypothyroidism- Levothyroxine #HTN- Amlodipine, irebesartan Dispo: Admit, med/sx VTE Prophylaxis: SCDs Admission and Anticipated Discharge Date Admission Date: November 24, 2024 Subjective 69 yo female reports no new symptoms. Physical Exam Constitutional: WD/WN, vitals as above Neck: trachea midline, no thyromegaly Respiratory: normal respiratory effort Results & Data Results & Data Vital Signs (Past 12 Hours) Vital Signs Temp Pulse Resp BP BP Pulse Ox O2 Del Method 11/27/24 20:32 36.8 C 63 18 122/73 95 Room Air 11/27/24 14:25 36.6 C 60 18 137/73 96 Room Air PG Care Time/CCT Total # of Minutes Spent Total Time Spent with Patient: Total time spent is greater than 50% in coordination of care (as documented) at patient's floor/unit and/or counseling patient: Coding Level of Care Code 32526 SUB INP/OBS CARE 3/50MIN Diagnoses Acute UTI N39.0 Uncontrolled type 1 diabetes mellitus with hyperglycemia E10.65 Pyelonephritis N12 ESBL (extended spectrum beta-lactamase) producing bacteria infection A49.9; Z16.12
--- NOTE | 2024-11-28 08:25 | Infectious Disease Progress Nt ---
Date of Service November 28, 2024 Assessment & Plan (1) ESBL (extended spectrum beta-lactamase) producing bacteria infection: (2) Pyelonephritis: (3) Renal abscess: Plan ID Problem List: # Left pyelonephritis with c/f possible 1.5cm left renal phlegmon-abscess # Recent ESBL E coli on UCx # Recurrent UTIs # H/o T1DM Impression: Jes Patel is a 69yo F with h/o T1DM, CAD, hypothyroidism, bl DEE, HTN, HLD recurrent UTI/pyelo with bacteremia 2/2 ESBL E. coli with multiple admissions since 2021, most recently admitted 10/05-10/07 with pyelo 2/2 ESBL E coli s/p ertapenem until 10/19, previously seen by urology (per last note 2022, given abrupt nature of symptom onset with her UTIs, they were unable to manage UTIs as outpatient) as well as followed with ID, intolerance to methenamine who presented on 11/24 with UTI due to ESBL E. coli. She had been seen by PCP on 11/22 and had reported fevers to 102, shaking, back pain, and vomiting. She had a positive UA and was prescribed Macrobid x 5d and referred to ED, where w/u showed leukocytosis to 15 but CTAP negative. She was discharged from ED but returned after UCx grew ESBL E coli. She reported worsening abdominal pain and back pain, multiple episodes of vomiting. On admission, she was afebrile, vss. Initial labs with WBC 8.51, Cr 0.95, LFT wnl. UA from 11/22 with > 50 WBC. UA 11/24 negative. CTAP w IV contrast on 11/24 showed mild heterogenous enhancement of left kidney with perinephric stranding, urothelial thickening in left renal pelvis; 1.5cm complex left kidney lesions could represent renal phlegmon-abscess in setting of pyelonephritis. She was started on ertapenem. ID consulted 11/25. Per chart, she reported worsening symptoms. Discussion Unfortunately, she has had recurrent episodes of pyelo/UTI with the same organism and has been difficult to control. It seems based on urology note from 2022, she had been seeing outpatient ID will need continued follow-up. For current infection, would continue on ertapenem for ESBL E coli isolated on 11/22. Note, it was sensitive to Macrobid so it could be the reason why UA is negative this admission, though macrobid is inadequate for upper tract infections. She has a 1.5cm renal lesion which could be abscess/phlegmon, but is quite small so the current plan is hold off on urology/IR drainage (dont see this noted in her prior CTAP from Sep 2024). BCx from 11/24 NGTD. Given the abscess, will plan on a tentative 3-week course of IV ertapenem, with interval reimaging prior to EOT, and ensure close follow-up with ID and urology. Recommendations: - Continue ertapenem 1g IV daily, continue for a tentative 3-week course (11/2412/14/24) with repeat CTAP w IV contrast obtained prior to the end of therapy, to ensure abscess resolution before discontinuing abx - Currently plan to hold off on drainage given small size of abscess/phlegmon if clinical or radiographic worsening (fevers, leukocytosis, etc.) will have to revisit this possibility with urology or IR - F/u blood cx until finalized - Monitor weekly CBC w/ diff, BMP, LFTs while on IV abx - Ensure close f/u with outpatient ID and urology - Management of recurrent UTIs would need to be coordinated with her outpatient provider based on what she has previously tried Thank you for letting ID participate in the care of this patient. ID will sign off at this time. If questions, [facility] at [phone]. Gillian Rizvi MD, MHS Infectious Diseases [facility]/ID Connect ID Connect direct line: [phone] Admission and Anticipated Discharge Date Admission Date: November 24, 2024 Subjective This patient recommendation is based on a telemedicine consult request which was completed asynchronously through chart review and information provided by the primary physician. The patient was not seen or examined today. The evaluation is consultative in nature and all patient care and treatment decisions can either be accepted or rejected by the patient's primary hospital-based treating physician using their own independent medical judgment for their patient. Time Spent Reviewing Chart: 21 - 30 minutes - Afebrile, WBC 7 - CRP 2.64 (down from 3.7) - BCx from 11/24 remaining NGTD Results & Data Vital Signs (Past 12 Hours) Vital Signs Temp Pulse Pulse Resp BP BP Pulse Ox 11/28/24 07:48 36.8 C 72 18 116/74 92 11/27/24 20:32 36.8 C 63 18 122/73 95 O2 Del Method 11/28/24 07:48 Room Air 11/27/24 20:32 Room Air Diagnostic Findings Diagnostics: 11/24 CT A/P 1. Mildly heterogeneous enhancement of left kidney with perinephric stranding as well as urothelial thickening in the left renal pelvis. Appearance suggests pyelonephritis and should be correlated with urinalysis. 2. There is a 1.5 cm complex left kidney lesion measuring 30 HU. This could represent renal phlegmon-abscess in the setting of pyelonephritis. Other complex cyst is a differential consideration. Imaging follow-up recommended. Micro Data: 11/24 BCX x2: NGTD 11/22 UCX: ESBL E coli (S-carito/erta, Macrobid; R-FQ, Bactrim) Antibiotic Summary: Erta 11/24-
[2024-11-28 11:06] VITALS: BP 120/68; RESP 17; TEMP 97.7; O2SAT 95
--- NOTE | 2024-11-28 11:11 | Discharge Summary ---
Discharge Summary Date of Service November 28, 2024 Principal Dx & Hospital Course #1 = Principal Diagnosis (1) Acute UTI: (2) Uncontrolled type 1 diabetes mellitus with hyperglycemia: (3) Pyelonephritis: (4) ESBL (extended spectrum beta-lactamase) producing bacteria infection: Plan 69-year-old female PMHx T1DM, GERD, HTN, hypothyroidism, recurrent UTIs with history of ESBL, and history of pyelonephritis presenting to ED for UTI. #UTI/ pyelonephritis Patient with long history of ESBL E. coli resulting in UTIs and pyelonephritis, ongoing since 2019. Her clinical presentation feels the same as prior episodes. Patient had recently completed prior course of IV ertapenem (10 day duration). - CBC without leukocytosis; CMP with normal renal function - - Cx from 11/22/2024 grew E. coli ESBL; - Consulted ID: Plan to complete a 3 week course of Ertapenem IV -Patient will come to the MTU daily for 16 more days as she received about a 5 day course in house. ordered ultrasound guided peripheral line/ this was placed on discharge, #T1DM H/o DMT1; with Dexcom in place. - Most recent A1C 09/2024 at 7.7% - resume home regimen #Anemia- Chronic, stable, Hgb baseline #GERD- Pantoprazole #HLD- Rosuvastatin #Hypothyroidism- Levothyroxine #HTN- Amlodipine, irebesartan Admission HPI Per Admitting Provider 69-year-old female PMHx T1DM, GERD, HTN, hypothyroidism, recurrent UTIs with history of ESBL, and history of pyelonephritis presenting to ED for UTI. Most recent hospital admission 10/05/2024 until 10/07/2024 for UTI and pyelonephritis. Presenting for known UTI, was started on abx on 2 days CLIENT ASSOCIATE and cultures resulted in E.coli ESBL. Patient was told to come back to hospital. Having fevers, TMax 102. Does feel that she may be having worsening abdominal pain and back pain, no chills. Had multiple episodes of vomiting 1 day CLIENT ASSOCIATE and with ongoing nausea. Denies chest pain, SOB, palpitations, D/C, numbness/tingling, weakness, or syncope. States this feels similar to prior UTIs. ED evaluation reveals no leukocytosis, H&H 10.9/33.6, CMP potassium 3.3, normal renal function, glucose 219; CTAP pending; provided with 1L NSS, ertapenem 1 g IV and acetaminophen 1 g IV in ED. Discharge Exam Constitutional WD/WN, vitals as above Neck trachea midline, no thyromegaly Respiratory normal respiratory effort Discharge Plan Discharge Items Patient Disposition: Home - Self-Care Reason For Visit: UTI Discharge Diagnosis: UTI Activity: Resume your previous activity Non-emergency contact: Primary Care Provider Call non-emergency contact if: you have any medication questions Follow-up/Referrals: Manasa Galan, [Primary Care Provider] - 12/02/24 9:45 am (Dr. Price) Diet: Regular Addtl Attending Provider Instructions: Your first appointment in the Medical Treatment Unit is scheduled for 1:00 pm tomorrow, November 29. Please check in at the main floor greeters desk at the [facility] (behind the hospital) by 12:45. WIll recommend followup with PCP in 1-2 weeks. Pending Studies at Discharge: No Stand-Alone Forms: My [facility] [employer], Smoking Cessation Medications and DC Order Prescriptions: New ertapenem 1 gram recon soln 1 g IV DAILY Qty: 16 0RF Rx Instructions: first dose tomorrow. Continued insulin aspart U-100 [Novolog FlexPen U-100 Insulin] 100 unit/mL (3 mL) insulin pen See Rx Instructions subcut TID Qty: 30 2RF Rx Instructions: in case of pump failure TDD 0 units subcut three times a day (DME) pen needle, diabetic [BD Shira 2nd Gen Pen Needle] 32 gauge x 5/32" needle See Rx Instructions miscellaneous .MEDSUPPLY Qty: 50 3RF Rx Instructions: Use a new pen needle each night ibuprofen 800 mg tablet 800 mg PO Q8H PRN (Reason: pain) Qty: 90 1RF ondansetron HCl 4 mg tablet 4 mg PO Q6 PRN (Reason: nausea) Qty: 20 1RF (DME) OneTouch Ultra Test Strip See Rx Instructions .ROUTE .MEDSUPPLY Qty: 300 3RF Rx Instructions: test 3 times daily insulin aspart U-100 [Novolog U-100 Insulin aspart] 100 unit/mL solution 60 unit continuous subcutaneous infusion DAILY Qty: 60 3RF rosuvastatin 20 mg tablet 20 mg PO DAILY cranberry extract 425 mg capsule 425 mg PO DAILY Rx Instructions: administer with a meal levothyroxine 125 mcg tablet 125 mcg PO QAM Qty: 90 3RF meloxicam 7.5 mg tablet 7.5 mg PO DAILY irbesartan 300 mg tablet 300 mg PO DAILY amlodipine [Norvasc] 5 mg tablet 5 mg PO QAM (DME) Ketostix Strip See Rx Instructions miscellaneous .MEDSUPPLY Qty: 50 5RF Rx Instructions: check if blood sugars are > 250 for 4 to 6 hours Baqsimi 3 mg/actuation spray,non-aerosol 3 mg intranasal ONCE Qty: 2 5RF ropinirole 0.5 mg tablet 0.5 mg PO HS (DME) t:slim X2 Basal-IQ Insulin Yard Switch Operator Misc See Rx Instructions .Route Rx Instructions: As directed gabapentin 100 mg capsule 100 mg PO TID Qty: 90 2RF pantoprazole 40 mg tablet,delayed release (DR/EC) 40 mg PO DAILY Qty: 90 3RF cholecalciferol (vitamin D3) [Vitamin D3] 50 mcg (2,000 unit) Capsule 50 mcg PO QAM alendronate 70 mg tablet 70 mg PO WK Patient Comments: SUNDAYS Rx Instructions: Thursday Excedrin Migraine 250-250-65 mg Tablet 1 tab PO Q6H PRN (Reason: Headache) aspirin [Raymond Low Dose Aspirin] 81 mg tablet,delayed release (DR/EC) 81 mg PO DAILY acetaminophen 500 mg capsule 1,000 mg PO Q6 PRN (Reason: Pain) montelukast 10 mg tablet 10 mg PO HS benzonatate 100 mg Capsule 100 mg PO TID PRN (Reason: cough) Qty: 30 0RF Discharge Orders: Discharge Order (Routine); Ordered 11/28/24 Ordered By: Anibal Manuel Admission Data Admit Date/Time: 11/24/24 21:55 Attending Provider: Anibal Manuel Admit Provider: Harley Hart Primary Care Provider: Manasa Galan Other Providers: Faith Gomez; Gillian Rizvi Other Interventions: Discharge Summary Assessment (RN) Last Done: 11/28/24 14:36 Hospital Stay Data Consultations 11/24/24 21:29 ED Decision to Admit Stat 11/25/24 13:25 Consult Infectious Diseases Routine Diagnostic Imagining Performed 11/24/24 21:24 CT Abd and Pelvis [CT abd pelvis IV con only] Stat Pending Results Patient Have Any Pending Studies at Discharge: No Discharge Instructions Given to Patient (Per Discharging Provider) Your first appointment in the Medical Treatment Unit is scheduled for 1:00 pm tomorrow, November 29. Please check in at the main floor greeters desk at the [facility] (behind the hospital) by 12:45. WIll recommend followup with PCP in 1-2 weeks. Total Time Total Time Spent Total Time Spent (In Minutes): 32 Coding Level of Care Code 30745 INP/OBS DISCH >30 MIN Diagnoses Acute UTI N39.0 Uncontrolled type 1 diabetes mellitus with hyperglycemia E10.65 Pyelonephritis N12 ESBL (extended spectrum beta-lactamase) producing bacteria infection A49.9; Z16.12
[2024-11-28 14:40] VITALS: PULSE 72
== END 2024-11-28 14:47 | disposition home or self-care (01) | DRG 690 ==
LOC: ED 18:57 → 3E 21:55 → SUATTDRO 21:55 → 3E 22:28